=== PATIENT | male | born 1940 | race Caucasian/White ===

== ENCOUNTER → 2017-12-24 | Outpatient (CLI) | payer MEDICARE ==
[~2017-12-24] MED LIST: LEVO250T PO; LOSA100T16 PO; LOSA100T7 PO; NFPRILOC40 PO; SIMV40TA4 PO
--- NOTE | 2017-12-24 13:45 | Diagnostic Imaging Report ---
INDICATION: Dyspnea on exertion. PA and lateral chest. FINDINGS: There appear to be some emphysematous changes in the lungs. There are no infiltrates, effusions, or pneumothoraces. Heart size and pulmonary vascularity are normal. IMPRESSION: COPD. No acute abnormality seen. Dictated by: Dictated on workstation # [id number]
== END ==
LOC: RAD 10:32
PROVIDERS: ATTEND Internal Medicine
DX: J44.9 Chronic obstructive pulmonary disease, unspecified (principal)
CPT/HCPCS: 71046

== ENCOUNTER → 2018-05-05 | Outpatient (CLI) | payer MEDICARE | LOC: CARD 11:08 | PROVIDERS: ATTEND Internal Medicine | DX: R07.9 Chest pain, unspecified (principal) | CPT/HCPCS: 36415; 84484; 93005 ==

== ENCOUNTER 2018-08-02 10:24 | Outpatient (RCR) | payer MEDICARE ==
[~2018-08-02] VITALS: Ht 188 cm; Wt 84.8 kg
[2018-08-02 10:44] VITALS: BP 148/60
--- NOTE | 2018-08-02 12:31 | Pulmonary Rehab Eval/Txmt Plan ---
Pulmonary Rehab Initial Eval Information Paper Evaluation Completed: No Date: Aug 02, 2018 Therapist: AVERY BATRES Pulmonary Rehab Treatment Plan Treatment P Treatment Periord: Initial Diagnosis Diagnosis: COPD Date: Aug 02, 2018 Barriers to Learning Barriers: None Assessment/Problems Exercise: Deconditioning, Decreased Exer Tolerance, No Regular Exercise, Sedentary Type: AEROBIC Frequency: 2 X WEEK Duration: 1 HR CLASS, EXERCISE PER PT TOLERANCE Barriers to Exercise: NON Initial MET Level: 2 Aerobic Exercise/Goals Freq: time per week minus NE: 2 MET Level=: 2 Type: Arm Ergometry, Bike, Scifi/Nustep, Treadmill SABINO CASTANEDA DO Aug 02, 2018 12:31
[2018-09-16 08:52] VITALS: BP 127/70
[2018-09-16 09:50] VITALS: BP 120/74
[2018-09-30 08:50] VITALS: BP 118/60
[2018-09-30 09:55] VITALS: BP 128/60
[2018-10-14 08:53] VITALS: BP 120/61
[2018-10-14 09:50] VITALS: BP 125/60
[2018-10-19 08:47] VITALS: BP 120/60
[2018-10-19 09:55] VITALS: BP 128/60
[2018-10-21 08:45] VITALS: BP 130/50
[2018-10-21 09:45] VITALS: BP 120/70
[2018-11-02 08:55] VITALS: BP 140/80
[2018-11-02 09:55] VITALS: BP 130/86
== END 2018-10-31 | disposition home or self-care (01) ==
LOC: PULM 10:24
PROVIDERS: ATTEND Internal Medicine
DX: J44.9 Chronic obstructive pulmonary disease, unspecified (principal); R53.81 Other malaise

== ENCOUNTER → 2018-08-05 | Outpatient (CLI) | payer MEDICARE | LOC: PULM 11:02 | PROVIDERS: ATTEND Internal Medicine | DX: J44.9 Chronic obstructive pulmonary disease, unspecified (principal) | CPT/HCPCS: 94621 ==

== ENCOUNTER → 2018-09-28 | Outpatient (CLI) | payer MEDICARE | LOC: LAB 13:19 | PROVIDERS: ATTEND Internal Medicine | DX: J42 Unspecified chronic bronchitis (principal) | CPT/HCPCS: 87070; 87205 ==

== ENCOUNTER 2018-11-01 08:00 | Outpatient (RCR) | payer MEDICARE ==
[2018-11-09 08:55] VITALS: BP 150/80
[2018-11-09 09:50] VITALS: BP 102/70
[2018-11-11 08:50] VITALS: BP 140/50
[2018-11-11 09:55] VITALS: BP 140/60
[2018-11-16 09:00] VITALS: BP 130/60
[2018-11-16 10:00] VITALS: BP 122/70
== END 2019-01-30 | disposition home or self-care (01) ==
LOC: PULM 08:00
PROVIDERS: ATTEND Internal Medicine
DX: J44.9 Chronic obstructive pulmonary disease, unspecified (principal); R53.81 Other malaise

== ENCOUNTER 2021-01-31 16:55 | Inpatient (IN) | payer MEDICARE ==
[~2021-01-31] VITALS: Ht 187.9 cm; Wt 82.7 kg
[2021-01-31] MEDS ORDERED: fentaNYL INJ 100 MCG/2 ML AMP IVP ONE ×3 (17:00→19:30)
--- NOTE | 2021-01-31 17:03 | ED Lower Extremity ---
General Stated Complaint: HIP PAIN Source: patient Exam Limitations: no limitations (ANNALISE WALTERS APRN) History of Present Illness Date Seen by Provider: Jan 31, 2021 Time Seen by Provider: 17:01 Initial Comments To ER with reports of left hip pain. This began after he fell while walking down 2 of his steps to get out of his door. He landed on the left hip and laid outside for about an hour before help was summoned. He is unable to bear weight on the left hip. He is unable to straighten out the left hip and prefers to keep it in a flexed position. Did not hit his head and there were no other injuries. Onset: this afternoon Severity: moderate Pain/Injury Location: left hip Method of Injury: fell Modifying Factors: Worse With Movement (ANNALISE WALTERS APRN) Allergies and Home Medications Allergies Coded Allergies: No Known Drug Allergies (Unverified , 01/23/12) Home Medications Levofloxacin 250 Mg Tab, 250 MG PO DAILY, (Reported) take one tablet daily for 5 days Losartan Potassium 100 Mg Tablet, 100 MG PO DAILY, (Reported) RESUME FOR BP GREATER THAN 140/90 Omeprazole 40 Mg Capsule.dr, 40 MG PO DAILY, (Reported) Simvastatin 40 Mg Tablet, 40 MG PO DAILY, (Reported) Patient Home Medication List Home Medication List Reviewed: Yes (ANNALISE WALTERS APRN) Review of Systems Constitutional: see HPI EENTM: see HPI Respiratory: no symptoms reported Cardiovascular: no symptoms reported Genitourinary: no symptoms reported Musculoskeletal: see HPI, joint pain Skin: no symptoms reported Psychiatric/Neurological: No Symptoms Reported (ANNALISE WALTERS APRN) Past Niomqbf-Zsxbhl-Icxfkg Hx Patient Social History Former Smoker, Quit: Jan 31, 1999 (ANNALISE AWLTERS APRN) Past Medical History Reproductive Disorders: No (ANNALISE WALTERS APRN) Physical Exam Vital Signs Vital Signs - First Documented (WON GRIDER MD) Vital Signs Capillary Refill : (ANNALISE WALTERS APRN) Height, Weight, BMI Height: 6'2.00" Weight: 186lbs. oz. 81.143550wf; 23.1 BMI Method: General Appearance: WD/WN, no apparent distress Neck: non-tender, full range of motion Respiratory: no respiratory distress, no accessory muscle use Hips: left hip pain, left hip soft tissue tenderness Legs: bilateral leg non-tender, bilateral leg normal inspection, bilateral leg normal range of motion Knees: bilateral knee non-tender, bilateral knee normal inspection, bilateral knee normal range of motion Ankles: bilateral ankle non-tender, bilateral ankle normal inspection, bilateral ankle normal range of motion Feet: bilateral foot non-tender, bilateral foot normal inspection, bilateral foot normal range of motion Neurologic/Psychiatric: alert, normal mood/affect, oriented x 3 Skin: normal color, warm/dry (ANNALISE WALTERS APRN) Progress/Results/Core Measures Results/Orders Lab Results Laboratory Tests Test 01/31/21 17:22 Range/Units White Blood Count 15.8 H 4.3-11.0 10^3/uL Red Blood Count 4.01 L 4.30-5.52 10^6/uL Hemoglobin 13.1 L 13.3-17.7 g/dL Hematocrit 40 40-54 % Mean Corpuscular Volume 99 80-99 fL Mean Corpuscular Hemoglobin 33 25-34 pg Mean Corpuscular Hemoglobin Concent 33 32-36 g/dL Red Cell Distribution Width 12.2 10.0-14.5 % Platelet Count 218 130-400 10^3/uL Mean Platelet Volume 9.9 9.0-12.2 fL Immature Granulocyte % (Auto) 1 % Neutrophils (%) (Auto) 84 H 42-75 % Lymphocytes (%) (Auto) 7 L 12-44 % Monocytes (%) (Auto) 7 0-12 % Eosinophils (%) (Auto) 1 0-10 % Basophils (%) (Auto) 1 0-10 % Neutrophils # (Auto) 13.3 H 1.8-7.8 10^3/uL Lymphocytes # (Auto) 1.1 1.0-4.0 10^3/uL Monocytes # (Auto) 1.1 H 0.0-1.0 10^3/uL Eosinophils # (Auto) 0.1 0.0-0.3 10^3/uL Basophils # (Auto) 0.1 0.0-0.1 10^3/uL Immature Granulocyte # (Auto) 0.1 0.0-0.1 10^3/uL Neutrophils % (Manual) 76 % Lymphocytes % (Manual) 9 % Monocytes % (Manual) 10 % Eosinophils % (Manual) 3 % Basophils % (Manual) 0 % Band Neutrophils 2 % Blood Morphology Comment NORMAL Prothrombin Time 14.3 12.2-14.7 SEC INR Comment 1.1 0.8-1.4 (WON GRIDER MD) Vital Signs/I&O 01/31/21 01/31/21 16:58 16:58 Temp 36.8 36.8 Pulse 93 93 Resp 18 18 B/P (MAP) 136/100 (112) 136/100 (112) Pulse Ox 92 92 O2 Delivery Nasal Cannula Nasal Cannula (WON GRIDER MD) Diagnostic Imaging Diagonstic Imaging: Xray Plain Films/CT/US/NM/MRI: chest Comments NAME: PAULINE OVALLE [facility] REC#: [id number] PT STATUS: REG ER : 1940 PHYSICIAN: ANNALISE WALTERS APRN ADMIT DATE: 01/31/21/ER Signed Date of Exam:01/31/21 CHEST 1 VIEW, AP/PA ONLY INDICATION: Fell. COMPARISON STUDY: Chest from 12/24/2017. FINDINGS: Frontal view of the chest demonstrates stable COPD. The heart size and vascularity are normal. No pleural effusion, pneumothorax, or fractures identified. There is some calcification of the aorta. IMPRESSION: There is stable COPD with no acute findings. Dictated by: Dictated on workstation # [id number] Dict: 01/31/211725 Trans: 01/31/21 173 AS6 [id number] Interpreted by: PERFECTO MENDIETA MD Electronically signed by: PERFECTO MENDIETA MD 01/31/21 173 NAME: PAULINE OVALLE [facility] REC#: [id number] PT STATUS: REG ER : 1940 PHYSICIAN: ANNALISE WALTERS APRN ADMIT DATE: 01/31/21/ER Draft Date of Exam:01/31/21 PELVIS WITH LEFT HIP 2-3 VIEWS EXAMINATION: Left hip unilateral 2 or 3 views (w/pelvis when done) HISTORY: Fall, left hip pain. COMPARISON: None available. FINDINGS: There is a displaced intertrochanteric fracture of the left femur with a comminuted fragment involving the lesser trochanter. Hip joint space is normal. No other fracture is seen. IMPRESSION: 1. Displaced and comminuted intertrochanteric fracture of the left femur. Dictated on workstation # [id number] Dict: 01/31/21 1726 Trans: 01/31/21 1731 AS6 [id number] Interpreted by: MAME SOLIS MD Electronically signed by: (ANNALISE WALTERS APRN) Departure Communication (Admissions) I spoke with Dr. Morrison, he will see the patient later this evening, will admit to him and consult hospitalist. Plan for n.p.o. after midnight operative repair in the morning. Patient's only medication at home is an inhaler for COPD. 1824-attempted to place a Gunderson catheter, unsuccessful x2 attempts by me. He states that he has had issues with urinary retention before where he was unable to urinate for a few days and walked around the house and was ultimately able to go. He felt that he should have gone somewhere to be evaluated but chose not to. 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 Today during my attempts I am able to insert the catheter 16 [place] coud easily until it reaches the prostate at which point I am no longer able to advance the catheter. Further attempts were ceased. He was able to use a urinal to completely empty his bladder. Post void bladder scan revealed an empty bladder. We will continue with this method. I called Dr. Moya but he is leaving town tomorrow and is unable to help out. (ANNALISE WALTERS APRN) Impression Primary Impression: Hip fracture, right Disposition: ADMITTED INPATIENT Condition: Stable Admissions Decision to Admit Reason: Admit from ER (Trauma) Decision to Admit/Date: Jan 31, 2021 Time/Decision to Admit Time: 17:43 (ANNALISE WALTERS APRN) Departure-Patient Inst. Referrals: ERIK JOHN MD (PCP/Family) Primary Care Physician Attending physician note: I was physically present in the emergency department as attending physician during the care of this patient, but I was not directly involved in the care or decision-making of this patient. (WON GRIDER MD) ANNALISE WALTERS APRN Jan 31, 2021 17:03 WON GRIDER MD Feb 01, 2021 20:31
[2021-01-31] MEDS ORDERED: NS IV 500 ML 500 ML IV SCH (17:15)
--- NOTE | 2021-01-31 17:29 | Diagnostic Imaging Report ---
INDICATION: Fell. COMPARISON STUDY: Chest from 12/24/2017. FINDINGS: Frontal view of the chest demonstrates stable COPD. The heart size and vascularity are normal. No pleural effusion, pneumothorax, or fractures identified. There is some calcification of the aorta. IMPRESSION: There is stable COPD with no acute findings. Dictated by: Dictated on workstation # [id number]
--- NOTE | 2021-01-31 17:32 | Diagnostic Imaging Report ---
EXAMINATION: Left hip unilateral 2 or 3 views (w/pelvis when done) HISTORY: Fall, left hip pain. COMPARISON: None available. FINDINGS: There is a displaced intertrochanteric fracture of the left femur with a comminuted fragment involving the lesser trochanter. Hip joint space is normal. No other fracture is seen. IMPRESSION: 1. Displaced and comminuted intertrochanteric fracture of the left femur. Dictated by: Dictated on workstation # [id number]
[2021-01-31 17:34] LABS: BASOPHILS # (AUTO) 0.1 10^3/uL (0.0-0.1); BASOPHILS % (AUTO) 1 % (0-10); EOSINOPHILS # (AUTO) 0.1 10^3/uL (0.0-0.3); EOSINOPHILS % (AUTO) 1 % (0-10); HEMATOCRIT 40 % (40-54); HEMOGLOBIN 13.1 g/dL (13.3-17.7); LYMPHOCYTES # (AUTO) 1.1 10^3/uL (1.0-4.0); LYMPHOCYTES % (AUTO) 7 % (12-44); MEAN CORPUSCULAR HEMOGLOBIN 33 pg (25-34); MEAN CORPUSCULAR HGB CONC 33 g/dL (32-36); MEAN CORPUSCULAR VOLUME 99 fL (80-99); MEAN PLATELET VOLUME 9.9 fL (9.0-12.2); MONOCYTES # (AUTO) 1.1 10^3/uL (0.0-1.0); MONOCYTES % (AUTO) 7 % (0-12); NEUTROPHILS # (AUTO) 13.3 10^3/uL (1.8-7.8); NEUTROPHILS % (AUTO) 84 % (42-75); PLATELET COUNT 218 10^3/uL (130-400); WHITE BLOOD COUNT 15.8 10^3/uL (4.3-11.0)
[2021-01-31 17:44] LABS: INR 1.1 (0.8-1.4); PROTHROMBIN TIME PATIENT 14.3 SEC (12.2-14.7)
[2021-01-31 17:52] LABS: BAND NEUTROPHILS 2 %; BASOPHILS % (MANUAL) 0 %; EOSINOPHILS % (MANUAL) 3 %; LYMPHOCYTES % (MANUAL) 9 %; MONOCYTES % (MANUAL) 10 %; NEUTROPHILS % (MANUAL) 76 %
[2021-01-31 17:53] LABS: RBC MORPH NORMAL
[2021-01-31] MEDS ORDERED: LIDOCAINE UROJET 2% GEL 10 ML PKG ONE (17:54)
[2021-01-31 18:29] LABS: CLARITY,URINE TURBID; COLOR,URINE RED; GLUCOSE, URINE (UA) NEGATIVE (NEGATIVE); KETONES,URINE TRACE (NEGATIVE); LEUKOCYTE ESTERASE ,URINE TRACE (NEGATIVE); NITRITE,URINE POSITIVE (NEGATIVE); PH,URINE 6.5 (5-9); PROTEIN,URINE 2+ (NEGATIVE)
[2021-01-31 18:32] LABS: BILIRUBIN,URINE 1+ (NEGATIVE)
[2021-01-31 18:37] LABS: BACTERIA,URINE TRACE /HPF; RBC,URINE TNTC /HPF; SQUAMOUS EPITHELIAL CELL,UR RARE /HPF; WBC,URINE 0-2 /HPF
[2021-01-31 19:00] LABS: ALBUMIN 3.8 GM/DL (3.2-4.5); POTASSIUM 3.8 MMOL/L (3.6-5.0)
[2021-01-31 19:01] LABS: CALCIUM 8.6 MG/DL (8.5-10.1)
[2021-01-31 19:02] LABS: TOTAL PROTEIN 6.4 GM/DL (6.4-8.2)
[2021-01-31 19:04] LABS: BILIRUBIN,TOTAL 0.6 MG/DL (0.1-1.0)
[2021-01-31 19:06] LABS: CREATININE SERUM 1.33 MG/DL (0.60-1.30)
[2021-01-31] MEDS ORDERED: ONDANSETRON 4 MG/2 ML (SDV) Z0FRAN IV PRN (20:00)
[2021-01-31] MEDS ORDERED: CATHETER FLUSH 10 ML SYR IV PRN (20:00)
[2021-01-31] MEDS: LACTATED RINGERS 1,000 ML IV SCH (21:26)
[2021-01-31] MEDS: fentaNYL INJ 100 MCG/2 ML AMP IV PRN (21:27)
[2021-01-31 22:28] VITALS: BP 136/100
[2021-01-31] MEDS ORDERED: RT-ALBUTEROL/IPRATROPIUM 3 ML (DUONEB) VIAL ONE (22:56)
[2021-01-31] MEDS ORDERED: RT-ALBUTEROL/IPRATROPIUM 3 ML (DUONEB) VIAL INH PRN (23:00)
[2021-02-01] VITALS (13 sets, daily range): BP systolic 93–144; BP diastolic 57–93
[2021-02-01] MEDS: fentaNYL INJ 100 MCG/2 ML AMP IV PRN ×10 (01:45→23:46)
[2021-02-01] MEDS: LACTATED RINGERS 1,000 ML IV SCH ×3 (03:46→20:24)
--- NOTE | 2021-02-01 04:43 | HISTORY AND PHYSICAL ---
DATE OF SERVICE: ADMISSION HISTORY AND PHYSICAL REASON FOR ADMISSION: Left intertrochanteric femur fracture. HISTORY: The patient is an 80-year-old gentleman who fell at home while walking down two steps. He landed on his left hip. He presented to the Emergency Department, where he was found to have a left intertrochanteric femur fracture. He denies any antecedent symptoms. He denies loss of consciousness or dizziness. He reports no prior history of hip problems. REVIEW OF SYSTEMS: No chest pain, no shortness of breath, no dysuria. PAST MEDICAL HISTORY: Significant for COPD, hypothyroidism, reflux, hypercholesterolemia. MEDICATIONS: Simvastatin, omeprazole. SOCIAL HISTORY: The patient is a former smoker. FAMILY HISTORY: Noncontributory. ALLERGIES: No known drug allergies. PHYSICAL EXAMINATION: GENERAL: The patient is well-developed, well-nourished, in no acute distress. HEENT: Normocephalic, atraumatic. Pupils are equal, round and reactive to light. Oropharynx is clear. NECK: Supple, no lymphadenopathy. LUNGS: Clear to auscultation bilaterally. HEART: Regular rate and rhythm. ABDOMEN: Soft, nontender, nondistended. EXTREMITIES: Left hip is held in a flexed position. There are no skin lesions noted. He has intact dorsiflexion and plantarflexion of the toes with symmetric pulses. He is tender over the lateral aspect of his left hip. Radiographs reveal a displaced left intertrochanteric femur fracture. IMPRESSION: Displaced left intertrochanteric femur fracture. PLAN: Left hip intramedullary nail. The risks, benefits, options, ramifications and recovery were discussed at length with the patient. He understands and wishes to proceed. Job ID: [id number] DocumentID: [id number] Dictated Date: 01/31/2021 19:16:59 Golf Shoe Spike Assembler Date: 02/01/2021 04:43:24 Dictated By: HUMERA BERNAL MD
[2021-02-01 06:00] LABS: BASOPHILS % (AUTO) 0 % (0-10); EOSINOPHILS % (AUTO) 0 % (0-10); HEMATOCRIT 33 % (40-54); HEMOGLOBIN 10.7 g/dL (13.3-17.7); LYMPHOCYTES # (AUTO) 1.3 10^3/uL (1.0-4.0); LYMPHOCYTES % (AUTO) 14 % (12-44); MEAN CORPUSCULAR HEMOGLOBIN 32 pg (25-34); MEAN CORPUSCULAR HGB CONC 33 g/dL (32-36); MEAN CORPUSCULAR VOLUME 99 fL (80-99); MEAN PLATELET VOLUME 10.1 fL (9.0-12.2); MONOCYTES # (AUTO) 1.3 10^3/uL (0.0-1.0); MONOCYTES % (AUTO) 14 % (0-12); NEUTROPHILS # (AUTO) 6.3 10^3/uL (1.8-7.8); NEUTROPHILS % (AUTO) 71 % (42-75); PLATELET COUNT 181 10^3/uL (130-400); WHITE BLOOD COUNT 8.9 10^3/uL (4.3-11.0)
[2021-02-01 06:18] LABS: POTASSIUM 4.2 MMOL/L (3.6-5.0)
[2021-02-01 06:20] LABS: CALCIUM 8.8 MG/DL (8.5-10.1)
[2021-02-01 06:24] LABS: CREATININE SERUM 1.52 MG/DL (0.60-1.30)
[2021-02-01] MEDS: RT-ALBUTEROL/IPRATROPIUM 3 ML (DUONEB) VIAL INH SCH ×2 (06:28→18:47)
--- NOTE | 2021-02-01 10:59 | Consultation - Hospitalist ---
HPI History of Present Illness: HPI/Chief Complaint Pt is an 80yoCM with no reported medical history who presented to the ER due to a fall. He was trying to get out of his door and fell down two steps landing on his left side. He was unfortunately down for about an hour prior to getting assistance as he was unable to stand. He was found to have a hip fracture and was admitted for repair. I am consulted for medical management. He reports he takes no prescription medicines but will take mucinex for phlegm. Otherwise he mostly just takes vitamins. He states he is very careful with his diet as well to maintain his weight and watches his carbs closely. Source: patient Date Seen 02/01/21 Attending Physician Chris Morrison MD PCP Mckinley Nichols MD Referring Physician Date of Admission Jan 31, 2021 at 17:31 Home Medications & Allergies Home Medications Reviewed patient Home Medication Reconciliation performed by pharmacy medication reconciliations epitaxial reactor technician and/or nursing. Patients Allergies have been reviewed. Allergies Allergies Coded Allergies No Known Drug Allergies (Unverified01/23/12) Past Yanoldf-Mxirya-Ksstrb Hx Patient Social History Tobacco Use?: No Smoking Status: Former Smoker Smokeless Tobacco Frequency: Never a User Use of E-Cig and/or Vaping dev: No Substance use?: No Alcohol Use?: No Pt feels they are or have been: No Immunizations Up To Date First/Initial COVID19 Vaccinat: 10/17/2020 Second COVID19 Vaccination Rufino: 11/17/2020 Tetanus Booster (TDap): Unknown Hepatitis A: No Hepatitis B: No Current Status Advance Directives: No Communicates: Verbally Primary Language: Hungarian Preferred Spoken Language: Hungarian Is interpretation needed?: No Implanted or Applied Medical D: None Past Medical History COPD Blood Disorders: No Review of Systems Constitutional: No chills, No fever EENTM: No blurred vision, No double vision, No nose congestion, No throat pain Respiratory: No cough, No dyspnea on exertion, No short of breath Cardiovascular: No chest pain, No edema, No palpitations Gastrointestinal: No abdominal pain, No constipation, No diarrhea, No nausea, No vomiting Genitourinary: No dysuria, No frequency Musculoskeletal: see HPI Skin: No lesions, No rash Psychiatric/Neurological: Denies Headache, Denies Numbness, Denies Tingling Physical Exam Physical Exam Vital Signs Vital Signs - First Documented Capillary Refill : Less Than 3 Seconds Height, Weight, BMI Height: 6'2.00" Weight: 186lbs. oz. 81.577462cm; 23.42 BMI Method: General Appearance: No Apparent Distress, WD/WN, Thin HEENT: PERRL/EOMI, Moist Mucous Membranes, Scleral Icterus (L), Scleral Icterus (R) Neck: Normal Inspection, Supple Cardiovascular: Regular Rate, Rhythm, No Murmur Gastrointestinal: Normal Bowel Sounds, Non Tender, Soft Extremity: Normal Capillary Refill, No Calf Tenderness, No Pedal Edema Neurologic/Psychiatric: Alert, Oriented x3, Normal Mood/Affect Skin: Normal Color, Warm/Dry Results Results/Procedures Labs Laboratory Tests 01/31/21 17:22 01/31/21 18:32 02/01/21 05:30 Patient resulted labs reviewed. Imaging: Reviewed Imaging Report Imaging [facility] [place], [place] NAME: PAULINE OVALLE [facility] REC#: [id number] PT STATUS: ADM IN : 1940 PHYSICIAN: ANNALISE WALTERS APRN ADMIT DATE: 01/31/21 Signed Date of Exam:01/31/21 PELVIS WITH LEFT HIP 2-3 VIEWS EXAMINATION: Left hip unilateral 2 or 3 views (w/pelvis when done) HISTORY: Fall, left hip pain. COMPARISON: None available. FINDINGS: There is a displaced intertrochanteric fracture of the left femur with a comminuted fragment involving the lesser trochanter. Hip joint space is normal. No other fracture is seen. IMPRESSION: 1. Displaced and comminuted intertrochanteric fracture of the left femur. Dictated by: Dictated on workstation # [id number] Dict: 01/31/21 1726 Trans: 01/31/21 1908 AS6 [id number] Interpreted by: MAME SOLIS MD Electronically signed by: MAME SOLIS MD 01/31/218 Assessment/Plan Assessment and Plan Assess & Plan/Chief Complaint jjjjjiDisplaced/comminuted intertrochanteric left femur fracture Management per primary Plan for operative repair today Discussed with Dr Morrison PT/OT following surgery IRF consult h/o HTN Appears to have taken antihypertensives in the past but not longer on them Will watch BP and treat as needed DVT ppx: When ok with surgery Diagnosis/Problems Diagnosis/Problems (1) Intertrochanteric fracture of left femur RICARDO CLIFFORD MD Feb 01, 2021 10:59
[2021-02-01] MEDS ORDERED: BUPIVACAINE 0.25% 30 ML (SENSORCAINE) VIAL ONE ×2 (13:11→13:34)
[2021-02-01] MEDS ORDERED: fentaNYL INJ 100 MCG/2 ML AMP IVP PRN (13:30)
[2021-02-01] MEDS: LACTATED RINGERS 1,000 ML IV PRN ×2 (13:30→14:27)
[2021-02-01] MEDS ORDERED: ACETAMINOPHEN 325 MG TABLET PO PRN (13:30)
[2021-02-01] MEDS ORDERED: ONDANSETRON 4 MG/2 ML (SDV) Z0FRAN IVP PRN (13:30)
[2021-02-01] MEDS ORDERED: LACTATED RINGERS 1,000 ML IV PRN (13:30)
[2021-02-01] MEDS ORDERED: ceFAZolin INJECTION 2,000 MG ONE (13:32)
[2021-02-01] MEDS ORDERED: WATER (STERILE) FOR INJECTION 20 ML ONE (13:33)
[2021-02-01] MEDS ORDERED: ONDANSETRON 4 MG/2 ML (SDV) Z0FRAN ONE (13:34)
[2021-02-01] MEDS ORDERED: MIDAZOLAM 2 MG/2 ML (VERSED) VIAL ONE (13:34)
[2021-02-01] MEDS ORDERED: PROPOFOL INJECTION 50 ML IV ONE (13:34)
--- NOTE | 2021-02-01 13:36 | Progress Note-Pre Operative ---
Pre-Operative Progress Note H&P Reviewed The H&P was reviewed, patient examined and no changes noted. Date Seen by Provider: Feb 01, 2021 Time Seen by Provider: 13:20 Date H&P Reviewed: Feb 01, 2021 Time H&P Reviewed: 07:00 Pre-Operative Diagnosis: closed, displaced, left intertrochanteric femur fracture HUMERA BERNAL MD Feb 01, 2021 13:36
--- NOTE | 2021-02-01 13:37 | Progress Note-Post Operative ---
Post-Operative Progess Note Surgeon (s)/Probation And Patrol Agent (s) Surgeon HUMERA BERNAL MD Probation And Patrol Agent: Alex Lemon Pre-Operative Diagnosis closed, displaced, left intertrochanteric femur fracture Post-Operative Diagnosis closed, displaced, left intertrochanteric femur fracture Procedure & Operative Findings Date of Procedure 02/01/21 Procedure Performed/Findings left hip intramedullary aarti Anesthesia Type spinal Estimated Blood Loss Estimated blood loss (mL): 100 ml Specimens/Packing Specimens Removed none Packing: none HUMREA BERNAL MD Feb 01, 2021 13:37
[2021-02-01] MEDS ORDERED: fentaNYL INJ 100 MCG/2 ML AMP ONE (13:43)
--- NOTE | 2021-02-01 13:56 | Physical Therapy Progress Note ---
Therapy Progress Note Patient currently in surgery. PT will evaluate patient in SHABBIR Baig PT Feb 01, 2021 13:56
[2021-02-01] MEDS ORDERED: RT-ALBUTEROL SULF 2.5 MG/3 ML PRE-MIX VIAL ONE (15:36)
--- NOTE | 2021-02-01 17:38 | Diagnostic Imaging Report ---
IMPRESSION: Intraoperative fluoroscopy was utilized by Tamiko during open reduction internal fixation of an intertrochanteric left femoral fracture. This was repaired with an antegrade intramedullary nail and spiral blade plate. 190.5 seconds of fluoroscopy was utilized. Dictated by: Dictated on workstation # [id number]
[2021-02-01] MEDS ORDERED: guaiFENesin (MUCINEX) 600 MG TAB PO PRN (18:15)
[2021-02-01] MEDS: oxyCODONE/APAP 5/325MG (PERCOCET 5) TABLET PO PRN ×2 (18:31→20:40)
[2021-02-01] MEDS: ceFAZolin INJECTION 1,000 MG in WATER (STERILE) FOR INJECTION 10 ML IV SCH ×2 (20:40→22:00)
--- NOTE | 2021-02-01 22:07 | OPERATIVE REPORT ---
DATE OF SERVICE: 02/01/2021 DIAGNOSIS: Displaced closed left intertrochanteric femur fracture. PROCEDURE: Left hip intramedullary nail. SURGEON: Chris Morrison MD ROAD FREIGHT FIRER: Alex Lemon, who assisted throughout the procedure and closed the incision. ANESTHESIA: Spinal by Twan Snow CRNA. ESTIMATED BLOOD LOSS: 100 mL. DRAINS: None. COMPLICATIONS: None. MATERIALS: Synthes TFN hip nail, 12 mm statically locked with a 105 mm blade. POSTOPERATIVE PLAN: Toe touch weightbearing, left lower extremity. The patient was transferred to the recovery room awake and in stable condition. STATEMENT OF MEDICAL NECESSITY: The patient is an 80-year-old gentleman who fell at home yesterday and was found to have a displaced left intertrochanteric femur fracture and the patient was counseled regarding treatment options and elected to proceed with surgical intervention. DESCRIPTION OF PROCEDURE: After risks and benefits of procedure were discussed and questions were answered, informed consent was signed and placed on chart, the operative site was confirmed in the preoperative holding area initialed by the surgeon. The patient was then transferred to the operating room. After adequate levels of regional anesthetic were obtained, a timeout was called, confirming the operative site. The patient was then carefully placed on the fracture table and longitudinal traction was applied. The fracture was flexed proximally and abducted somewhat and lower extremity was prepped and draped in the usual sterile fashion. An incision was made from the greater trochanter extending proximally. The iliotibial band was incised in line with the incision. The guidewire was passed through the greater trochanter into the femoral canal. This was shown to be well-placed in the AP and lateral planes. This was then overreamed and 12 mm nail was placed with excellent fill distally. The proximal fragment was flexed anteriorly and the posterior fragment was extended. A Rabago was inserted to lever the femoral neck posteriorly and the aarti was used to lever the femur anteriorly. This provided better reduction and the guidewire was passed into the femoral head. Unfortunately, it was somewhat superior and was an anterior, but this was felt to be adequate. This was then overdrilled to the nail and a 105 mm blade was placed with excellent purchase. This was then statically locked proximally and through the same incision distally of the blade, the locking screw was placed and had excellent purchase and was well placed in the AP and lateral planes. The femur moved as a unit after hardware placement as this was viewed under live time fluoroscopy and palpated anteriorly. The wounds were copiously irrigated. The iliotibial band was closed with #1 Vicryl in [id number] interrupted fashion. The subcutaneous tissues were closed with 2-0 Vicryl in a simple interrupted fashion and shasta were used on the skin. Incisions were infiltrated with plain Marcaine. A soft dressing was applied, and the patient was transported to the recovery room awake and in stable condition. Job ID: [id number] DocumentID: [id number] Dictated Date: 02/01/2021 16:06:54 Picker Feeder Date: 02/01/2021 22:04:57 Dictated By: CHRIS MORRISON MD
[2021-02-02] MEDS: fentaNYL INJ 100 MCG/2 ML AMP IV PRN ×2 (04:15→06:22)
[2021-02-02] MEDS: LACTATED RINGERS 1,000 ML IV SCH ×3 (04:16→23:10)
[2021-02-02 04:18] VITALS: BP 111/70
[2021-02-02 06:07] LABS: HEMOGLOBIN 8.5 g/dL (13.3-17.7)
[2021-02-02] MEDS: ceFAZolin INJECTION 1,000 MG in WATER (STERILE) FOR INJECTION 10 ML IV SCH (06:21)
[2021-02-02] MEDS: RT-ALBUTEROL/IPRATROPIUM 3 ML (DUONEB) VIAL INH SCH ×2 (07:00→18:30)
--- NOTE | 2021-02-02 07:30 | Progress Note ---
Standard Progress Note Progress Notes/Assess & Plan Date Seen by a Provider: Feb 02, 2021 Time Seen by a Provider: 07:29 Progress/Assessment & Plan no complaints Vital Signs Date Time Temp Pulse Resp B/P (MAP) Pulse Ox O2 Delivery O2 Flow Rate FiO2 02/02/21 07:00 94 Nasal Cannula 2.00 02/02/21 04:18 36.8 93 20 111/70 (84) 95 Nasal Cannula 2.00 02/01/21 23:46 36.5 96 20 106/65 (79) 97 Nasal Cannula 2.00 02/01/21 19:30 Nasal Cannula 2.00 02/01/21 19:25 36.8 102 22 110/57 (74) 95 Nasal Cannula 2.00 02/01/21 18:49 92 Nasal Cannula 2.00 02/01/21 16:30 36.6 99 24 144/83 (103) 95 Nasal Cannula 2.00 02/01/21 16:25 Nasal Cannula 2 02/01/21 16:20 37.2 18 106/93 (97) 94 Nasal Cannula 2 02/01/21 16:15 OxyMask 2 02/01/21 16:10 20 127/61 (83) 94 OxyMask 2 02/01/21 16:00 17 129/71 (90) 95 OxyMask 4 02/01/21 16:00 OxyMask 3 02/01/21 15:50 14 120/75 (90) 96 OxyMask 6 02/01/21 15:45 OxyMask 6 02/01/21 15:40 16 141/69 (93) 98 OxyMask 8 02/01/21 15:33 36.2 20 93/74 (80) 98 OxyMask 10 02/01/21 15:33 OxyMask 10 02/01/21 11:50 36.8 88 20 123/68 (86) 92 Room Air 02/01/21 08:00 92 Room Air 02/01/21 07:45 36.4 99 20 103/61 (75) 92 Room Air I & O 02/02/21 07:00 Intake Total 2190 ml Output Total 1400 ml Balance 790 ml Laboratory Tests Test 02/02/21 05:35 Range/Units Hemoglobin 8.5 #L 13.3-17.7 g/dL Hematocrit 26 L 40-54 % L hip echymotic. Dressing intact. Intact DF and PF of toes and ankle s/p L hip IM aarti strict TTWB IRU HUMERA Zaragoza MD Feb 02, 2021 07:30
[2021-02-02 08:35] VITALS: BP 115/56
[2021-02-02] MEDS: ENOXAPARIN 40 MG/0.4 ML (LOVENOX) SYR SC SCH (08:55)
[2021-02-02] MEDS: ASPIRIN E.C. 81 MG (ECOTRIN) TAB PO SCH (08:55)
--- NOTE | 2021-02-02 09:49 | Anesthesia-Regional Post-Op ---
Regional Patient Condition Mental Status: Alert, Oriented x3 Circulation: Same as Pre-Op Headache: Absent Sensation: Full Recovery Motor Block: Absent Post Op Complications Complications None Follow Up Care/Instructions Patient Instructions None needed. Anesthesia/Patient Condition Patient is doing well, no complaints, stable vital signs, no apparent adverse anesthesia problems. No complications reported per nursing. [place] [facility] [place] ZARIA COKER CRNA Feb 02, 2021 09:49
[2021-02-02] MEDS: oxyCODONE/APAP 5/325MG (PERCOCET 5) TABLET PO PRN (11:48)
--- NOTE | 2021-02-02 12:09 | Physical Therapy Evaluation ---
PT Evaluation-General Medical Diagnosis Admission Date Jan 31, 2021 at 17:31 Medical Diagnosis: Left Femur fracture Onset Date: Feb 01, 2021 Therapy Diagnosis Therapy Diagnosis: Gait deficit, Generalized weakness Height/Weight Height (Feet): 6 Height (Inches): 2.00 Weight (Pounds): 186 Precautions Precautions/Isolations: Fall Prevention, Standard Precautions Weight Bear Status Right Lower Extremity: Right Full Weight Bearing Left Lower Extremity: Left Touch Toe Bearing Referral Physician: Dr. Morrison Reason for Referral: Evaluation/Treatment, Strengthening, Gait, ROM Social History Home: Single Level Current Living Status: Alone Entry Into Home: Stairs Without Railing PT Steps Into Home: 2 Prior Prior Level of Function SCALE: Activities may be completed with or without assistive devices. 7-Iopjjyexkh-vqumtht completes the activity by him/herself with no assistance from a helper. 5-Set-up or Clean-up Assistance-helper sets up or cleans up; patient completes activity. [place] assists only prior to or following the activity. 4-Supervision or Touching Assistance-helper provides verbal cues and/or touching/steadying and/or contact guard assistance as patient completes activity. Assistance may be provided throughout the activity or intermittently. 3-Partial/Moderate Assistance-helper does LESS THAN HALF the effort. [place] lifts, holds or supports trunk or limbs, but provides less than half the effort. 2-Substantial/Maximal Assistance-helper does MORE THAN HALF the effort. [place] lifts or holds trunk or limbs and provides more than half the effort. 6-Qrxxyzhjy-fnfqzr does ALL the effort. Patient does none of the effort to complete the activity. Or, the assistance of 2 or more helpers is required for the patient to complete the activity. If activity was not attempted, code reason: 7-Patient Refused. 9-Not Applicable-not attempted and the patient did not perform the activity before the current illness, exacerbation or injury. 10-Not Attempted due to Environmental Limitations-(lack of equipment, weather restraints, etc.). 88-Not Attempted due to Medical Conditions or Safety Concerns. Bed Mobility: 6 Transfers (B,C,W/C): 6 Gait: 6 Stairs: 6 Wheelchair Mobility: 9 Indoor Mobility (Ambulation): Independent Stairs: Independent Prior Device Use: none PT Evaluation-Current Subjective Patient reports left hip pain that increases with movement. Currently feels that his arms aren't strong enough to help him walk using the FWW. Pain Numeric Pain Scale: 8 Location: Left Location Body Site: Hip Pain Description: Ache, Throbbing, Sharp Pt/Family Goals Patient wants to get stronger and return home. Objective Patient Orientation: Person, Place, Time, Situation Attachments: IV Integumentary/Posture Integumentary Please see nurses notes Bowel Incontinence: No Bladder Incontinence: No Posture Patient demonstrates right lateral lean in sitting to offset pain in left him. He demonstrates a forward trunk posture in standing with head down and bilateral shoulders protracted. Neuromuscular (Tone, Coordination, Reflexes) Coordination decreased on left LE. Sensory Vision: Wears Glasses Hearing: Functional Sensation Right Lower Extremit: Intact Sensation Left Lower Extremity: Intact Transfers Roll Left to Right (QC): 2 Sit to Lying (QC): 2 Lying to Sitting/Side of Bed(Q: 2 Sit to Stand (QC): 2 Chair/Fvn-ps-Meuns Xfer(QC): 2 Toilet Transfer (QC): 2 Car Transfer (QC): 88 Gait Does the Patient Walk?: No and Walking Goal IS indicated Mode of Locomotion: Both Anticipated Mode of Locomotion: Walk Walk 10 feet (QC): 1 Walk 50 ft with 2 Turns(QC): 1 Walk 150 ft (QC): 1 Walking 10ft/uneven surface-QC: 1 Distance: 0 Gait Assistive Device: FWW Comments/Gait Description Patient is unable to generate enough UE force to initiate stepping at this time. Wheelchair Training Does the Pt Use a Wheelchair?: No Distance: 0 Wheel 50 ft with 2 turns (QC): 1 Wheel 150 ft (QC): 1 Type of Wheelchair: Manual Stairs #of Steps: 0 1 Step (curb) (QC): 1 4 Steps (QC): 1 12 Steps (QC): 1 Walking Assistive Device: Walker Balance Sitting Static: Fair Sitting Dynamic: Poor Standing Static: Poor Standing Dynamic: Poor Picking up an Object (QC): 1 Assessment/Needs Patient lying supine in bed upon PT arrival, agreeable to treatment. Patient performs all bed mobility and transfers with max A and additional assist for Left LE movement. Sits edge of bed ~ 5 minutes with focus on appropriate posture and righting. Patient requires max A for sit to stand and stand pivot to the chair. Attempted standing and transfer with FWW, however patient unable to use UEs with any efficiency. Patient in chair post treatment with all needs met, nursing notified, call light in reach. Rehab Potential: Fair Equipment Needs FWW, W/C PT Short Term Goals Short Term Goals Time Frame: Feb 13, 2021 Roll Left & Right: 3 Sit to lyin Lying to sitting on side of be: 3 Sit to stand: 3 Chair/zqj-xc-kizjj transfer: 3 Toilet transfer: 3 Car transfer: 3 Walk 10 feet: 2 Walk 50 feet with two turns: 2 Walk 150 feet: 2 Walking 10ft on uneven surface: 2 1 step (curb): 2 4 steps: 2 12 steps: 2 Picking up objects: 2 Does pt use a wc or scooter: Yes Wheel 50ft w/2 turns: 3 Wheel 150 feet: 3 Type: Manual PT Penitentiary Goals Real Estate Teacher Goals PT Penitentiary Goals Time Frame: Feb 23, 2021 Roll Left & Right (QC): 5 Sit to Lying (QC): 5 Lying-Sitting on Side/Bed(QC): 5 Sit to Stand (QC): 5 Chair/Aod-fh-Jqrmd Xfer(QC): 4 Toilet Transfer (QC): 4 Car Transfer (QC): 4 Does the Patient Walk: Yes Walk 10 feet (QC): 3 Walk 50ft with 2 Turns (QC): 3 Walk 150 ft (QC): 3 Walking 10ft on Uneven Surface: 3 1 Step (curb) (QC): 3 4 Steps (QC): 3 12 Steps (QC): 3 Picking up an Object (QC): 3 Does the Pt use WC or Scooter?: Yes Wheel 50 feet with 2 turns (QC: 5 Type: Manual Wheel 150 feet: 5 Type: Manual PT Plan Problem List Problem List: Activity Tolerance, Functional Strength, Safety, Balance, Gait, Transfer, Bed Mobility Treatment/Plan Treatment Plan: Continue Plan of Care Treatment Plan: Bed Mobility, Education, Functional Activity Molly, Functional Strength, Group Therapy, Gait, Safety, Therapeutic Exercise, Transfers Treatment Duration: Mar 02, 2021 Frequency: At least 5 of 7 days/Wk (IRF) Estimated Hrs Per Day: .25 hour per day Patient and/or Family Agrees t: Yes Safety Risks/Education Patient Education: Gait Training, Transfer Techniques, Reviewed Precautions, Correct Positioning, Safety Issues Teaching Recipient: Patient Teaching Methods: Demonstration, Discussion Response to Teaching: Verbalize Understanding Time/GCodes Time In: 940 Time Out: 1010 Total Billed Treatment Time: 30 Total Billed Treatment Visit, Eval, Functional Act. MAME GUTIERREZ PT Feb 02, 2021 12:09
[2021-02-02 12:10] VITALS: BP 107/56
[2021-02-02 15:53] VITALS: BP 102/65
[2021-02-02 19:13] VITALS: BP 91/54
[2021-02-02 23:10] VITALS: BP 94/58
[2021-02-03 03:41] VITALS: BP 112/60
[2021-02-03] MEDS: LACTATED RINGERS 1,000 ML IV SCH (04:05)
[2021-02-03] MEDS: oxyCODONE/APAP 5/325MG (PERCOCET 5) TABLET PO PRN ×2 (04:12→08:04)
[2021-02-03 05:44] LABS: HEMOGLOBIN 7.7 g/dL (13.3-17.7)
[2021-02-03] MEDS: ASPIRIN E.C. 81 MG (ECOTRIN) TAB PO SCH (07:49)
[2021-02-03] MEDS: ENOXAPARIN 40 MG/0.4 ML (LOVENOX) SYR SC SCH (07:50)
[2021-02-03 08:00] VITALS: BP 108/63
[2021-02-03] MEDS: RT-ALBUTEROL/IPRATROPIUM 3 ML (DUONEB) VIAL INH SCH ×2 (08:08→20:46)
--- NOTE | 2021-02-03 09:11 | Physical Therapy Daily Note ---
PT Daily Note-Current Subjective Patient reports he felt good this morning when he woke up with less pain, but noted his arms were very sore. Nurse reports the patient was just stood at bedside and transferred to a different bed. Patient agreeable to treatment. Pain Numeric Pain Scale: 5-Moderate Pain Location: Left Location Body Site: Hip Pain Description: Ache Mental Status Patient Orientation: Person, Place, Time, Situation Transfers SCALE: Activities may be completed with or without assistive devices. 2-Vpcnhsokjy-vykvuuw completes the activity by him/herself with no assistance from a helper. 5-Set-up or Clean-up Assistance-helper sets up or cleans up; patient completes activity. [place] assists only prior to or following the activity. 4-Supervision or Touching Assistance-helper provides verbal cues and/or touching/steadying and/or contact guard assistance as patient completes activity. Assistance may be provided throughout the activity or intermittently. 3-Partial/Moderate Assistance-helper does LESS THAN HALF the effort. [place] lifts, holds or supports trunk or limbs, but provides less than half the effort. 2-Substantial/Maximal Assistance-helper does MORE THAN HALF the effort. [place] lifts or holds trunk or limbs and provides more than half the effort. 9-Tgjciedbj-ezkbow does ALL the effort. Patient does none of the effort to complete the activity. Or, the assistance of 2 or more helpers is required for the patient to complete the activity. If activity was not attempted, code reason: 7-Patient Refused. 9-Not Applicable-not attempted and the patient did not perform the activity before the current illness, exacerbation or injury. 10-Not Attempted due to Environmental Limitations-(lack of equipment, weather restraints, etc.). 88-Not Attempted due to Medical Conditions or Safety Concerns. Roll Left & Right (QC): 3 Sit to Lying (QC): 3 Lying to Sitting/Side of Bed(Q: 3 Sit to Stand (QC): 3 Chair/Fmb-pf-Etxue Xfer(QC): 3 Toilet Transfer (QC): 3 Weight Bearing Right Lower Extremity: Right Full Weight Bearing Left Lower Extremity: Left Touch Toe Bearing Gait Training Does the Patient Walk?: Yes Distance: 3 feet Gait Assistive Device: FWW Patient is able to perform gait training/transfer to the chair with Hop to gait pattern on right LE. He is able to use the FWW better this visit with improved UE control. Patient compliant with left LE TTWB. Wheelchair Training Does the Pt Use a Wheelchair?: No Exercises Supine Ex: Ankle pumps, Quad Set, Glut sets, Heel Slides, Short Arc Quads, Straight leg raise Supine Reps: 20 Assessment Current Status: Good Progress Patient lying supine in bed upon PT arrival, agreeable to treatment. Patient performs LE therapeutic exercise as listed above with right LE AROM and left LE AAROM/PROM. Patient performs all observed bed mobility and transfers with min/mod A and verbal cues for progression. Patient transfers to the chair with hop to gait pattern on the right, maintaining Left LE TTWB. Patient in chair post treatment with all needs met, nursing notified, call light in reach. PT Short Term Goals Short Term Goals Time Frame: Feb 13, 2021 Roll Left & Right: 3 Sit to lyin Lying to sitting on side of be: 3 Sit to stand: 3 Chair/nxw-iu-xgabj transfer: 3 Toilet transfer: 3 Car transfer: 3 Walk 10 feet: 2 Walk 50 feet with two turns: 2 Walk 150 feet: 2 Walking 10ft on uneven surface: 2 1 step (curb): 2 4 steps: 2 12 steps: 2 Picking up objects: 2 Does pt use a wc or scooter: Yes Wheel 50ft w/2 turns: 3 Wheel 150 feet: 3 Type: Manual PT Weather Analyst Goals Long-Term Goals PT Weather Analyst Goals Time Frame: Feb 23, 2021 Roll Left & Right (QC): 5 Sit to Lying (QC): 5 Lying-Sitting on Side/Bed(QC): 5 Sit to Stand (QC): 5 Chair/Bsq-rn-Fseod Xfer(QC): 4 Toilet Transfer (QC): 4 Car Transfer (QC): 4 Does the Patient Walk: Yes Walk 10 feet (QC): 3 Walk 50ft with 2 Turns (QC): 3 Walk 150 ft (QC): 3 Walking 10ft on Uneven Surface: 3 1 Step (curb) (QC): 3 4 Steps (QC): 3 12 Steps (QC): 3 Picking up an Object (QC): 3 Does the Pt use WC or Scooter?: Yes Wheel 50 feet with 2 turns (QC: 5 Type: Manual Wheel 150 feet: 5 Type: Manual PT Plan Problem List Problem List: Activity Tolerance, Functional Strength, Safety, Balance, Gait, Transfer, Bed Mobility, ROM Treatment/Plan Treatment Plan: Continue Plan of Care Treatment Plan: Bed Mobility, Education, Functional Activity Molly, Functional Strength, Group Therapy, Gait, Safety, Therapeutic Exercise, Transfers Treatment Duration: Mar 02, 2021 Frequency: At least 5 of 7 days/Wk (IRF) Estimated Hrs Per Day: .25 hour per day Patient and/or Family Agrees t: Yes Time/GCodes Time In: 08 Time Out: 905 Total Billed Treatment Time: 45 Total Billed Treatment Visit, EX FA (2) MAME GUTIERREZ PT Feb 03, 2021 09:10
--- NOTE | 2021-02-03 09:16 | Progress Note ---
Standard Progress Note Progress Notes/Assess & Plan Date Seen by a Provider: Feb 03, 2021 Time Seen by a Provider: 09:15 Progress/Assessment & Plan no complaints Vital Signs Date Time Temp Pulse Resp B/P (MAP) Pulse Ox O2 Delivery O2 Flow Rate FiO2 02/02/21 07:00 94 Nasal Cannula 2.00 02/02/21 04:18 36.8 93 20 111/70 (84) 95 Nasal Cannula 2.00 02/01/21 23:46 36.5 96 20 106/65 (79) 97 Nasal Cannula 2.00 02/01/21 19:30 Nasal Cannula 2.00 02/01/21 19:25 36.8 102 22 110/57 (74) 95 Nasal Cannula 2.00 02/01/21 18:49 92 Nasal Cannula 2.00 02/01/21 16:30 36.6 99 24 144/83 (103) 95 Nasal Cannula 2.00 02/01/21 16:25 Nasal Cannula 2 02/01/21 16:20 37.2 18 106/93 (97) 94 Nasal Cannula 2 02/01/21 16:15 OxyMask 2 02/01/21 16:10 20 127/61 (83) 94 OxyMask 2 02/01/21 16:00 17 129/71 (90) 95 OxyMask 4 02/01/21 16:00 OxyMask 3 02/01/21 15:50 14 120/75 (90) 96 OxyMask 6 02/01/21 15:45 OxyMask 6 02/01/21 15:40 16 141/69 (93) 98 OxyMask 8 02/01/21 15:33 36.2 20 93/74 (80) 98 OxyMask 10 02/01/21 15:33 OxyMask 10 02/01/21 11:50 36.8 88 20 123/68 (86) 92 Room Air 02/01/21 08:00 92 Room Air 02/01/21 07:45 36.4 99 20 103/61 (75) 92 Room Air I & O 02/02/21 07:00 Intake Total 2190 ml Output Total 1400 ml Balance 790 ml Laboratory Tests Test 02/02/21 05:35 Range/Units Hemoglobin 8.5 #L 13.3-17.7 g/dL Hematocrit 26 L 40-54 % L hip echymotic. Dressing intact. Intact DF and PF of toes and ankle s/p L hip IM aarti strict TTWB IRU eval Final Diagnosis feeling better today Vital Signs Date Time Temp Pulse Resp B/P (MAP) Pulse Ox O2 Delivery O2 Flow Rate FiO2 02/03/21 08:08 92 Nasal Cannula 1.00 02/03/21 08:00 36.4 92 16 108/63 (78) 91 Nasal Cannula 0.50 02/03/21 03:41 36.9 96 18 112/60 (77) 95 Nasal Cannula 0.50 02/02/21 23:10 36.8 89 18 94/58 (70) 98 Nasal Cannula 1.00 02/02/21 20:45 Nasal Cannula 1.00 02/02/21 19:13 36.7 65 18 91/54 (66) 96 Nasal Cannula 1.00 02/02/21 18:30 92 Nasal Cannula 1.00 02/02/21 15:53 36.8 93 20 102/65 (77) 94 Nasal Cannula 1.00 02/02/21 12:10 36.8 96 22 107/56 (73) 95 Nasal Cannula 1.00 I & O 02/03/21 07:00 Intake Total 3527 ml Output Total 1975 ml Balance 1552 ml Laboratory Tests Test 02/03/21 05:20 Range/Units Hemoglobin 7.7 L 13.3-17.7 g/dL Hematocrit 24 L 40-54 % L hip incisions clean and dry. no calf tenderness s/p L hip IM aarti IRU if qualifies HUMERA BERNAL MD Feb 03, 2021 09:16
[2021-02-03] MEDS ORDERED: SENNA W/DOCUSATE (SENOKOT S) TABLET PO PRN (11:15)
[2021-02-03] MEDS ORDERED: BISACODYL 10 MG SUPP (DULCOLAX) PR PRN (11:15)
[2021-02-03 12:00] VITALS: BP 95/50
[2021-02-03 15:30] VITALS: BP 97/52
[2021-02-03 20:39] VITALS: BP 98/61
[2021-02-03] MEDS: polyethylene glycoL POWDER 17 GM (MIRALAX) PACK PO SCH (20:44)
[2021-02-04] VITALS (20 sets, daily range): BP systolic 99–130; BP diastolic 50–79
[2021-02-04 07:26] LABS: HEMOGLOBIN 7.5 g/dL (13.3-17.7)
[2021-02-04 07:36] LABS: BUN/CREATININE RATIO 16; CALCIUM 8.4 MG/DL (8.5-10.1); CARBON DIOXIDE 26 MMOL/L (21-32); CHLORIDE 102 MMOL/L (98-107); CREATININE SERUM 1.07 MG/DL (0.60-1.30); GFR ESTIMATED > 60; GLUCOSE 106 MG/DL (70-105); POTASSIUM 3.9 MMOL/L (3.6-5.0); SODIUM 138 MMOL/L (135-145)
[2021-02-04] MEDS: RT-ALBUTEROL/IPRATROPIUM 3 ML (DUONEB) VIAL INH SCH ×3 (07:49→21:26)
--- NOTE | 2021-02-04 07:51 | Progress Note ---
Standard Progress Note Progress Notes/Assess & Plan Date Seen by a Provider: Feb 04, 2021 Time Seen by a Provider: 07:50 Progress/Assessment & Plan no complaints Vital Signs Date Time Temp Pulse Resp B/P (MAP) Pulse Ox O2 Delivery O2 Flow Rate FiO2 02/02/21 07:00 94 Nasal Cannula 2.00 02/02/21 04:18 36.8 93 20 111/70 (84) 95 Nasal Cannula 2.00 02/01/21 23:46 36.5 96 20 106/65 (79) 97 Nasal Cannula 2.00 02/01/21 19:30 Nasal Cannula 2.00 02/01/21 19:25 36.8 102 22 110/57 (74) 95 Nasal Cannula 2.00 02/01/21 18:49 92 Nasal Cannula 2.00 02/01/21 16:30 36.6 99 24 144/83 (103) 95 Nasal Cannula 2.00 02/01/21 16:25 Nasal Cannula 2 02/01/21 16:20 37.2 18 106/93 (97) 94 Nasal Cannula 2 02/01/21 16:15 OxyMask 2 02/01/21 16:10 20 127/61 (83) 94 OxyMask 2 02/01/21 16:00 17 129/71 (90) 95 OxyMask 4 02/01/21 16:00 OxyMask 3 02/01/21 15:50 14 120/75 (90) 96 OxyMask 6 02/01/21 15:45 OxyMask 6 02/01/21 15:40 16 141/69 (93) 98 OxyMask 8 02/01/21 15:33 36.2 20 93/74 (80) 98 OxyMask 10 02/01/21 15:33 OxyMask 10 02/01/21 11:50 36.8 88 20 123/68 (86) 92 Room Air 02/01/21 08:00 92 Room Air 02/01/21 07:45 36.4 99 20 103/61 (75) 92 Room Air I & O 02/02/21 07:00 Intake Total 2190 ml Output Total 1400 ml Balance 790 ml Laboratory Tests Test 02/02/21 05:35 Range/Units Hemoglobin 8.5 #L 13.3-17.7 g/dL Hematocrit 26 L 40-54 % L hip echymotic. Dressing intact. Intact DF and PF of toes and ankle s/p L hip IM aarti strict TTWB IRU eval Final Diagnosis feeling down today L Vital Signs Date Time Temp Pulse Resp B/P (MAP) Pulse Ox O2 Delivery O2 Flow Rate FiO2 02/04/21 00:00 37.0 98 20 100/54 (69) 94 Nasal Cannula 0.50 02/03/21 20:46 94 Nasal Cannula 1.00 02/03/21 20:39 36.6 90 18 98/61 (73) 96 Nasal Cannula 0.50 02/03/21 20:00 94 Nasal Cannula 1.00 02/03/21 15:30 36.6 94 18 97/52 (67) 94 Nasal Cannula 0.50 02/03/21 12:00 36.0 81 20 95/50 (65) 95 Nasal Cannula 0.50 02/03/21 08:08 92 Nasal Cannula 1.00 02/03/21 08:00 92 Nasal Cannula 1.00 02/03/21 08:00 36.4 92 16 108/63 (78) 91 Nasal Cannula 0.50 I & O 02/04/21 06:59 Intake Total 1610 ml Output Total 1525 ml Balance 85 ml Laboratory Tests Test 02/04/21 07:15 Range/Units Hemoglobin 7.5 L 13.3-17.7 g/dL Hematocrit 23 L 40-54 % Sodium Level 138 135-145 MMOL/L Potassium Level 3.9 3.6-5.0 MMOL/L Chloride Level 102 98-107 MMOL/L Carbon Dioxide Level 26 21-32 MMOL/L Anion Gap 10 5-14 MMOL/L Blood Urea Nitrogen 17 7-18 MG/DL Creatinine 1.07 0.60-1.30 MG/DL Estimat Glomerular Filtration Rate > 60 BUN/Creatinine Ratio 16 Glucose Level 106 H 70-105 MG/DL Calcium Level 8.4 L 8.5-10.1 MG/DL L thigh echymotic. no calf tenderness. unable to perform SLR s/p L hip IM aarti strict TTWB IRU if qualifies HUMERA BERNAL MD Feb 04, 2021 07:51
[2021-02-04] MEDS ORDERED: CALC-250 PO (08:49)
[2021-02-04] MEDS ORDERED: GUAI600T43 PO (08:49)
[2021-02-04] MEDS ORDERED: IPRA3AMP31 INH (08:49)
[2021-02-04] MEDS: ENOXAPARIN 40 MG/0.4 ML (LOVENOX) SYR SC SCH (08:58)
[2021-02-04] MEDS: oxyCODONE/APAP 5/325MG (PERCOCET 5) TABLET PO PRN (08:58)
[2021-02-04] MEDS: ASPIRIN E.C. 81 MG (ECOTRIN) TAB PO SCH (08:59)
--- NOTE | 2021-02-04 11:15 | Physical Therapy Daily Note ---
PT Daily Note-Current Subjective Patient agrees to PT. Pain Numeric Pain Scale: 5-Moderate Pain Location: Left Location Body Site: Hip Pain Description: Acute Mental Status Patient Orientation: Normal For Age Transfers SCALE: Activities may be completed with or without assistive devices. 6-Eqxbxexfwd-tniktlb completes the activity by him/herself with no assistance from a helper. 5-Set-up or Clean-up Assistance-helper sets up or cleans up; patient completes activity. [place] assists only prior to or following the activity. 4-Supervision or Touching Assistance-helper provides verbal cues and/or touching/steadying and/or contact guard assistance as patient completes activity. Assistance may be provided throughout the activity or intermittently. 3-Partial/Moderate Assistance-helper does LESS THAN HALF the effort. [place] lifts, holds or supports trunk or limbs, but provides less than half the effort. 2-Substantial/Maximal Assistance-helper does MORE THAN HALF the effort. [place] lifts or holds trunk or limbs and provides more than half the effort. 8-Iznwwpwlz-cggdnu does ALL the effort. Patient does none of the effort to complete the activity. Or, the assistance of 2 or more helpers is required for the patient to complete the activity. If activity was not attempted, code reason: 7-Patient Refused. 9-Not Applicable-not attempted and the patient did not perform the activity before the current illness, exacerbation or injury. 10-Not Attempted due to Environmental Limitations-(lack of equipment, weather restraints, etc.). 88-Not Attempted due to Medical Conditions or Safety Concerns. Lying to Sitting/Side of Bed(Q: 3 Sit to Stand (QC): 3 Chair/Aqx-qu-Lfnwg Xfer(QC): 3 Weight Bearing Right Lower Extremity: Right Full Weight Bearing Left Lower Extremity: Left Touch Toe Bearing Gait Training Does the Patient Walk?: Yes Distance: 20' Walk 10 feet (QC): 3 Gait Assistive Device: FWW PT lowered FWW to allow patient to extend UE's to assist with TTWB left LE. Patient is able to comply with weight bearing status/slow, step to gait sequence Exercises Supine Ex: Ankle pumps, Quad Set, Heel Slides, Straight leg raise Supine Reps: 12 (AAROM left LE) Seated Therapy Exercises: Ankle pumps, Long arc quads Seated Reps: 15 Assessment Patient tolerated treatment well and is up in recliner. Patient displayed increase SOA with activity with SAO2 96% on RA. However, RN notified of elevated HR on vitals machine. PT Short Term Goals Short Term Goals Time Frame: Feb 13, 2021 Roll Left & Right: 3 Sit to lyin Lying to sitting on side of be: 3 Sit to stand: 3 Chair/znq-wg-unisc transfer: 3 Toilet transfer: 3 Car transfer: 3 Walk 10 feet: 2 Walk 50 feet with two turns: 2 Walk 150 feet: 2 Walking 10ft on uneven surface: 2 1 step (curb): 2 4 steps: 2 12 steps: 2 Picking up objects: 2 Does pt use a wc or scooter: Yes Wheel 50ft w/2 turns: 3 Wheel 150 feet: 3 Type: Manual PT Leather Roller Goals Leather Roller Goals PT Leather Roller Goals Time Frame: Feb 23, 2021 Roll Left & Right (QC): 5 Sit to Lying (QC): 5 Lying-Sitting on Side/Bed(QC): 5 Sit to Stand (QC): 5 Chair/Dee-jx-Ydngc Xfer(QC): 4 Toilet Transfer (QC): 4 Car Transfer (QC): 4 Does the Patient Walk: Yes Walk 10 feet (QC): 3 Walk 50ft with 2 Turns (QC): 3 Walk 150 ft (QC): 3 Walking 10ft on Uneven Surface: 3 1 Step (curb) (QC): 3 4 Steps (QC): 3 12 Steps (QC): 3 Picking up an Object (QC): 3 Does the Pt use WC or Scooter?: Yes Wheel 50 feet with 2 turns (QC: 5 Type: Manual Wheel 150 feet: 5 Type: Manual PT Plan Treatment/Plan Treatment Plan: Continue Plan of Care Treatment Plan: Bed Mobility, Education, Functional Activity Molly, Functional Strength, Group Therapy, Gait, Safety, Therapeutic Exercise, Transfers Treatment Duration: Mar 02, 2021 Frequency: At least 5 of 7 days/Wk (IRF) Estimated Hrs Per Day: .25 hour per day Patient and/or Family Agrees t: Yes Time/GCodes Time In: 1039 Time Out: 1102 Total Billed Treatment Time: 23 Total Billed Treatment 1 visit EX 10 min GT 13 min SHABBIR HOWARD PT Feb 04, 2021 11:15
[2021-02-04] MEDS ORDERED: dilTIAZem DRIP PRE-MIX 125 ML IV SCH (11:45)
--- NOTE | 2021-02-04 11:52 | Progress Note - Hospitalist ---
Subjective HPI/CC On Admission Date Seen by Provider: Feb 04, 2021 Time Seen by Provider: 11:40 Pt is an 80yoCM with no reported medical history who presented to the ER due to a fall. He was trying to get out of his door and fell down two steps landing on his left side. He was unfortunately down for about an hour prior to getting a ssistance as he was unable to stand. He was found to have a hip fracture and was admitted for repair. I am consulted for medical management. He reports he takes no prescription medicines but will take mucinex for phlegm. Otherwise he mostly just takes vitamins. He states he is very careful with his diet as well to maintain his weight and watches his carbs closely. Subjective/Events-last exam He is having some palpitations. He reports shortness of breath. He denies chest pain. Objective Exam Vital Signs Vital Signs Date Time Temp Pulse Resp B/P (MAP) Pulse Ox O2 Delivery O2 Flow Rate FiO2 02/04/21 11:09 36.8 98 93 21 02/04/21 08:19 20 104/66 (79) Nasal Cannula 0.50 Capillary Refill : Less Than 3 SecondsLess Than 3 Seconds General Appearance: No Apparent Distress, WD/WN Respiratory: Lungs Clear, Normal Breath Sounds, No Respiratory Distress Cardiovascular: Irregularly Irregular, Tachycardia Gastrointestinal: Normal Bowel Sounds, Non Tender, Soft Extremity: Normal Inspection, Non Tender, No Pedal Edema Neurologic/Psychiatric: Alert, Oriented x3, No Motor/Sensory Deficits, Normal Mood/Affect Skin: Normal Color, Warm/Dry Results/Procedures Lab Laboratory Tests 02/04/21 07:15 Patient resulted labs reviewed. Imaging: Reviewed Imaging Report Assessment/Plan Assessment and Plan Assess & Plan/Chief Complaint Displaced/comminuted intertrochanteric left femur fracture Management per primary s/p surgical repair (intermedullary aarti) with Dr. Morrison 02/01 PT/OT following IRU consulted AFib with RVR EKG showed AFib with RVR, new onset Transfer to ICU Begin IV Cardizem Begin therapeutic Lovenox Cardiology consulted, appreciate assistance Postoperative anemia Hgb trended down postop, now stable 7.5 Monitor MERVIN Cr improved, resolved Diagnosis/Problems Diagnosis/Problems (1) Atrial fibrillation with RVR Status: Acute (2) Intertrochanteric fracture of left femur Status: Acute (3) Postoperative anemia Status: Acute (4) MERVIN (acute kidney injury) Status: Acute NIKO BROWN MD Feb 04, 2021 11:52
[2021-02-04] MEDS ORDERED: RT-ALBUTEROL/IPRATROPIUM 3 ML (DUONEB) VIAL INH PRN (12:00)
[2021-02-04] MEDS: ENOXAPARIN 80 MG/0.8 ML (LOVENOX) SYR SC SCH ×2 (12:08→23:52)
--- NOTE | 2021-02-04 14:00 | Occ Therapy Progress Note ---
Therapy Progress Note Pt's orders received, chart reviewed. Pt transferred to ICU prior to entry, OT requires new orders due to higher level of care/ change in medical status. Thank you. MARIE THURSTON OTR Feb 04, 2021 13:59
--- NOTE | 2021-02-04 14:17 | Physical Therapy Progress Note ---
Therapy Progress Note Patient transferred to ICU due to change in medical status. PT requires new orders to resume therapy. SHABBIR HOWARD PT Feb 04, 2021 14:17
[2021-02-04] MEDS ORDERED: NS IV 500 ML 500 ML IV SCH (14:45)
--- NOTE | 2021-02-04 16:33 | Consultation-Cardiology ---
HPI-Cardiology Cardiology Consultation Date of Consultation 02/04/21 Date of Admission Time Seen by Provider: 11:40 Indication: Atrial fibrillation HPI 80 years old gentleman with no significant past medical history, sustained a fall resulted in hip fracture, patient was admitted to the hospital had hip replacement surgery, postoperatively he was doing well, had slightly progressive anemia, this morning he developed atrial fibrillation with rapid ventricular response. On my evaluation was laying down in bed, feeling slightly better, felt his heart racing. No chest pain. No syncope. Home Medications & Allergies Allergies: Coded Allergies: No Known Drug Allergies (Unverified , 01/23/12) Home Medication List Reviewed: Yes TLG-Lcfgdc-Gjjyar Hx Patient Social History Marital Status: Recreational Drug Use: No Smoking Status: Former Smoker 2nd Hand Smoke Exposure: No Recent Hopitalizations: Yes Have you traveled recently?: No Alcohol Use?: No Past Medical History Discussed below Family Medical History Family Medical Hx Noncontributory Review of Systems-General Review of Systems Constitutional: see HPI; No chills, No fever; malaise EENTM: see HPI; No blurred vision, No double vision, No nose congestion, No throat pain Respiratory: see HPI; No cough, No dyspnea on exertion, No hemoptysis, No orthopnea, No phlegm, No short of breath, No stridor, No wheezing, No other Cardiovascular: see HPI; No chest pain, No edema, No Hx of Intervention; palpitations; No syncope, No vascular heart diseas, No other Gastrointestinal: no symptoms reported, see HPI; No abdominal pain, No constipation, No diarrhea, No nausea, No vomiting Genitourinary: see HPI; No dysuria, No frequency Musculoskeletal: see HPI, other (Hip surgery) Skin: No lesions, No rash Psychiatric/Neurological: Denies Headache, Denies Numbness, Denies Tingling Reviewed Test Results Reviewed Test Results Lab Laboratory Tests Test 02/04/21 07:15 Range/Units Hemoglobin 7.5 L 13.3-17.7 g/dL Hematocrit 23 L 40-54 % Sodium Level 138 135-145 MMOL/L Potassium Level 3.9 3.6-5.0 MMOL/L Chloride Level 102 98-107 MMOL/L Carbon Dioxide Level 26 21-32 MMOL/L Anion Gap 10 5-14 MMOL/L Blood Urea Nitrogen 17 7-18 MG/DL Creatinine 1.07 0.60-1.30 MG/DL Estimat Glomerular Filtration Rate > 60 BUN/Creatinine Ratio 16 Glucose Level 106 H 70-105 MG/DL Calcium Level 8.4 L 8.5-10.1 MG/DL Physical Exam Physical Exam Vital Signs Vital Signs - First Documented 02/04/21 11:09 FiO2 21 Capillary Refill : Less Than 3 SecondsLess Than 3 Seconds Height, Weight, BMI Height: 6'2.00" Weight: 186lbs. oz. 81.447341vz; 23.42 BMI Method: General Appearance: No Apparent Distress, WD/WN HEENT: PERRL/EOMI, Moist Mucous Membranes, Scleral Icterus (L), Scleral Icterus (R) Neck: Normal Inspection, Supple Respiratory: Lungs Clear, Normal Breath Sounds, No Respiratory Distress Cardiovascular: Irregularly Irregular, Tachycardia Gastrointestinal: Normal Bowel Sounds, Non Tender, Soft Extremity: Normal Inspection, Non Tender, No Pedal Edema Neurologic/Psychiatric: Alert, Oriented x3, No Motor/Sensory Deficits, Normal Mood/Affect Skin: Normal Color, Warm/Dry A/P-Cardiology Admission Diagnosis Paroxysmal atrial fibrillation Palpitation Hip fracture Assessment/Plan Atrial fibrillation with rapid ventricular response, new onset, diagnosed today. Heart rate 140, started on Cardizem drip, adding metoprolol IV, started on Lovenox 1 mg/kg. Will evaluate 2D echo and monitor Anemia, probably will worsen when patient received full dose anticoagulation, I will proceed with transfusing 2 units of packed RBCs and evaluate tolerance and response Left hip fracture, underwent surgical repair with Dr. Morrison on February 01, 2021, receiving physical therapy Renal insufficiency, monitor renal function. Palpitations secondary to tachycardia JENNIFER RIVER MD Feb 04, 2021 16:33
[2021-02-04] MEDS: meTOprolol 5 MG/5 ML (LOPRESSOR) VIAL IV SCH ×2 (18:08→23:52)
[2021-02-04] MEDS: polyethylene glycoL POWDER 17 GM (MIRALAX) PACK PO SCH (20:25)
--- NOTE | 2021-02-04 22:22 | DISCHARGE SUMMARY ---
DATE OF SERVICE: DIAGNOSES: 1. Left intertrochanteric femur fracture. 2. Anemia secondary to traumatic blood loss and operative blood loss. 3. Chronic obstructive pulmonary disease. PROCEDURE: Left hip intramedullary aarti. SUMMARY: The patient is an 80-year-old gentleman who was admitted following a fall and was found to have a left intertrochanteric femur fracture. He underwent internal fixation with a aarti and postoperatively was progressing well. At the time of discharge, his wound was clean and dry. He was progressing with physical therapy. He was tolerating his diet well and tolerating pain with oral pain medication. CONDITION AT DISCHARGE: Good. DISCHARGE DIET: Regular. DISPOSITION: Transferred to the inpatient rehabilitation unit for continued physical and occupational therapy. Job ID: [id number] DocumentID: [id number] Dictated Date: 02/04/2021 07:52:52 Cocktail Server Date: 02/04/2021 22:21:23 Dictated By: HUMERA BERNAL MD
[2021-02-05] VITALS (12 sets, daily range): BP systolic 86–147; BP diastolic 53–80
[2021-02-05] MEDS: fentaNYL INJ 100 MCG/2 ML AMP IV PRN (00:13)
[2021-02-05 04:04] LABS: BASOPHILS % (AUTO) 0 % (0-10); EOSINOPHILS # (AUTO) 0.1 10^3/uL (0.0-0.3); EOSINOPHILS % (AUTO) 1 % (0-10); HEMATOCRIT 28 % (40-54); HEMOGLOBIN 9.2 g/dL (13.3-17.7); LYMPHOCYTES # (AUTO) 1.4 10^3/uL (1.0-4.0); LYMPHOCYTES % (AUTO) 15 % (12-44); MEAN CORPUSCULAR HEMOGLOBIN 32 pg (25-34); MEAN CORPUSCULAR HGB CONC 33 g/dL (32-36); MEAN CORPUSCULAR VOLUME 96 fL (80-99); MEAN PLATELET VOLUME 10.6 fL (9.0-12.2); MONOCYTES # (AUTO) 1.2 10^3/uL (0.0-1.0); MONOCYTES % (AUTO) 13 % (0-12); NEUTROPHILS # (AUTO) 6.6 10^3/uL (1.8-7.8); NEUTROPHILS % (AUTO) 70 % (42-75); PLATELET COUNT 186 10^3/uL (130-400); WHITE BLOOD COUNT 9.4 10^3/uL (4.3-11.0)
[2021-02-05 05:10] LABS: CALCIUM 8.4 MG/DL (8.5-10.1); CREATININE SERUM 1.17 MG/DL (0.60-1.30); MAGNESIUM 2.2 MG/DL (1.6-2.4); PHOSPHORUS 2.9 MG/DL (2.3-4.7); POTASSIUM 3.8 MMOL/L (3.6-5.0)
[2021-02-05] MEDS: oxyCODONE/APAP 5/325MG (PERCOCET 5) TABLET PO PRN ×2 (05:37→13:15)
[2021-02-05] MEDS: meTOprolol 5 MG/5 ML (LOPRESSOR) VIAL IV SCH ×2 (05:38→13:05)
[2021-02-05] MEDS ORDERED: MAGNESIUM 1 GM/100 ML IVPB 100 ML IV SCH (06:00)
[2021-02-05] MEDS ORDERED: POTASSIUM CL 10MEQ/50ML IVPB 50 ML IV SCH (06:00)
[2021-02-05] MEDS ORDERED: KCL 20 MEQ TAB (K-DUR) PO SCH (06:00)
[2021-02-05] MEDS: RT-ALBUTEROL/IPRATROPIUM 3 ML (DUONEB) VIAL INH SCH (07:27)
--- NOTE | 2021-02-05 07:52 | Cardiology Progress Note ---
Subjective Date Seen by Provider: Feb 05, 2021 Time Seen by Provider: 07:50 Subjective/Events-last exam Patient was seen at bedside laying down comfortably, converted back to sinus rhythm Review of Systems General: No Chills, No Night Sweats, No Fatigue, No Malaise, No Appetite, No Other HEENT: No Head Aches, No Visual Changes, No Eye Pain, No Ear Pain, No Dysphasia , No Sinus Congestion, No Post Nasal Drip, No Sore Throat, No Other Pulmonary: No Dyspnea, No Cough, No Pleuritic Chest Pain, No Other Cardiovascular: No: Chest Pain, Palpitations, Orthopnea, Paroxysmal Noc. Dyspnea, Edema, Lt Headedness, Other Objective-Cardiology Exam Last Set of Vital Signs Vital Signs 02/04/21 02/05/21 02/05/21 02/05/21 11:09 01:54 06:00 07:27 Temp 36.6 Pulse 53 Resp 15 B/P (MAP) 147/68 (94) Pulse Ox 94 O2 Delivery Nasal Cannula O2 Flow Rate 2.00 FiO2 21 Capillary Refill : Less Than 3 SecondsLess Than 3 Seconds I&O Intake and Output 02/04/21 23:59 Intake Total 810 ml Output Total 1245 ml Balance -435 ml Intake Oral 810 ml Output Urine Total 1245 ml General: Alert, Oriented X3, Cooperative HEENT: Atraumatic, PERRLA Neck: Supple, No JVD, No Thyromegaly Lungs: Clear to Auscultation, Normal Air Movement Heart: Regular Rate, Normal S1, Normal S2, No Murmurs Abdomen: Normal Bowel Sounds, Soft, No Tenderness, No Hepatosplenomegaly, No Masses Extremities: No Clubbing, No Cyanosis, No Edema, Normal Pulses, No Tenderness/Swelling Skin: No Rashes, No Breakdown, No Significant Lesion Neuro: Normal Gait, Normal Speech, Strength at 5/5 X4 Ext, Normal Tone, Sensation Intact Psych/Mental Status: Mental Status NL, Mood NL Results Lab Laboratory Tests 02/05/21 03:20 A/P-Cardiology Admission Diagnosis Paroxysmal atrial fibrillation Palpitation Hip fracture Assessment/Plan Postop atrial fibrillation with rapid ventricular response, controlled by diltiazem and converted back spontaneously to sinus rhythm. Borderline hypotension, DC diltiazem, was on Lopressor IV which will be discontinued I will use oral Lopressor and evaluate tolerance and response. Anemia, probably will worsen when patient received full dose anticoagulation, I will proceed with transfusing 2 units of packed RBCs and evaluate tolerance and response Left hip fracture, underwent surgical repair with Dr. Morrison on February 01, 2021, receiving physical therapy Renal insufficiency, monitor renal function. Palpitations secondary to tachycardia Okay to transfer to JENNIFER MANRIQUE MD Feb 05, 2021 7:51 am
[2021-02-05] MEDS: ASPIRIN E.C. 81 MG (ECOTRIN) TAB PO SCH (09:35)
--- NOTE | 2021-02-05 11:46 | Physical Therapy Evaluation ---
PT Evaluation-General Medical Diagnosis Admission Date Jan 31, 2021 at 17:31 Medical Diagnosis: Left Femur fracture Onset Date: Feb 01, 2021 Therapy Diagnosis Therapy Diagnosis: debility/weakness Height/Weight Height (Feet): 6 Height (Inches): 2.00 Weight (Pounds): 186 Precautions Precautions/Isolations: Fall Prevention, Standard Precautions Weight Bear Status Right Lower Extremity: Right Full Weight Bearing Left Lower Extremity: Left Touch Toe Bearing Referral Physician: [employer] Reason for Referral: Evaluation/Treatment, Strengthening, Gait, ROM Medical History Pertinent Medical History: Atrial Fib Current History new onset A-Fib resulting in transfer to ICU Reviewed History: Yes Social History Home: Single Level Current Living Status: Alone Entry Into Home: Stairs Without Railing PT Steps Into Home: 2 Prior Prior Level of Function SCALE: Activities may be completed with or without assistive devices. 3-Ivnxuokuxc-ioaddme completes the activity by him/herself with no assistance from a helper. 5-Set-up or Clean-up Assistance-helper sets up or cleans up; patient completes activity. [place] assists only prior to or following the activity. 4-Supervision or Touching Assistance-helper provides verbal cues and/or touching/steadying and/or contact guard assistance as patient completes activity. Assistance may be provided throughout the activity or intermittently. 3-Partial/Moderate Assistance-helper does LESS THAN HALF the effort. [place] lifts, holds or supports trunk or limbs, but provides less than half the effort. 2-Substantial/Maximal Assistance-helper does MORE THAN HALF the effort. [place] lifts or holds trunk or limbs and provides more than half the effort. 4-Jvyokrtrg-fsxhrc does ALL the effort. Patient does none of the effort to complete the activity. Or, the assistance of 2 or more helpers is required for the patient to complete the activity. If activity was not attempted, code reason: 7-Patient Refused. 9-Not Applicable-not attempted and the patient did not perform the activity before the current illness, exacerbation or injury. 10-Not Attempted due to Environmental Limitations-(lack of equipment, weather restraints, etc.). 88-Not Attempted due to Medical Conditions or Safety Concerns. Bed Mobility: 6 Transfers (B,C,W/C): 6 Gait: 6 Stairs: 6 Indoor Mobility (Ambulation): Independent Stairs: Independent Prior Devices Use: None Prior Device Use: none PT Evaluation-Current Subjective Patient is very agreeable to participate with therapy. Pain Numeric Pain Scale: 5-Moderate Pain Location: Left Location Body Site: Hip Pain Description: Acute Objective Patient Orientation: Normal For Age Attachments: Oxygen ROM/Strength ROM Lower Extremities left LE slightly limited due to edema from left hip fracture with repair/right LE WFL Strength Lower Extremities right LE 4-/5 grossly all planes/left LE 3/5 grossly all planes Integumentary/Posture Integumentary refer to nursing notes Bowel Incontinence: No Bladder Incontinence: No Posture slight trunk flexed posture in stand to FWW due to left hip pain Sensory Vision: Wears Glasses Hearing: Functional Sensation Right Lower Extremit: Intact Sensation Left Lower Extremity: Intact Transfers Lying to Sitting/Side of Bed(Q: 3 Sit to Stand (QC): 3 Chair/Bvk-rk-Vjbjt Xfer(QC): 3 Toilet Transfer (QC): 3 Gait Does the Patient Walk?: Yes Mode of Locomotion: Walk Anticipated Mode of Locomotion: Walk Walk 10 feet (QC): 3 (compliance with TTWB left LE ) Walk 50 ft with 2 Turns(QC): 88 Walk 150 ft (QC): 88 Gait Assistive Device: FWW Balance Sitting Static: Normal Sitting Dynamic: Normal Standing Static: Fair Standing Dynamic: Fair Picking up an Object (QC): 88 Assessment/Needs 80 y.o. male, will benefit from skilled PT to address functional strength and mobility to improve current LOF to safely return to home at maximum LOF. Rehab Potential: Fair PT Short Term Goals Short Term Goals Time Frame: Feb 13, 2021 Roll Left & Right: 3 Sit to lyin Lying to sitting on side of be: 3 Sit to stand: 3 Chair/cum-lr-kzrjg transfer: 3 Toilet transfer: 3 Car transfer: 3 Walk 10 feet: 3 Walk 50 feet with two turns: 3 Walk 150 feet: 2 Walking 10ft on uneven surface: 2 1 step (curb): 2 4 steps: 2 12 steps: 2 Picking up objects: 2 Does pt use a wc or scooter: Yes Wheel 50ft w/2 turns: 3 Wheel 150 feet: 3 Type: Manual PT Residential Goals Residential Goals PT Suppression Crew Leader Goals Time Frame: Feb 23, 2021 Roll Left & Right (QC): 5 Sit to Lying (QC): 5 Lying-Sitting on Side/Bed(QC): 5 Sit to Stand (QC): 5 Chair/Nmp-ou-Vwrrk Xfer(QC): 4 Toilet Transfer (QC): 4 Car Transfer (QC): 4 Does the Patient Walk: Yes Walk 10 feet (QC): 3 Walk 50ft with 2 Turns (QC): 3 Walk 150 ft (QC): 3 Walking 10ft on Uneven Surface: 3 1 Step (curb) (QC): 3 4 Steps (QC): 3 12 Steps (QC): 3 Picking up an Object (QC): 3 Does the Pt use WC or Scooter?: Yes Wheel 50 feet with 2 turns (QC: 5 Type: Manual Wheel 150 feet: 5 Type: Manual PT Plan Problem List Problem List: Activity Tolerance, Functional Strength, Balance, Gait, Transfer, Bed Mobility Treatment/Plan Treatment Plan: Continue Plan of Care Treatment Plan: Bed Mobility, Education, Functional Activity Molly, Functional Strength, Group Therapy, Gait, Safety, Therapeutic Exercise, Transfers Treatment Duration: Feb 23, 2021 Frequency: 11 times per week Estimated Hrs Per Day: .5 hour per day Patient and/or Family Agrees t: Yes Safety Risks/Education Patient Education: Gait Training, Safety Issues Time/GCodes Time In: 1121 Time Out: 1136 Total Billed Treatment Time: 15 Total Billed Treatment 1 visit [id number] min SHABBIR HOWARD PT Feb 05, 2021 11:46
[2021-02-05] MEDS: ENOXAPARIN 80 MG/0.8 ML (LOVENOX) SYR SC SCH (13:05)
--- NOTE | 2021-02-05 13:16 | Progress Note - Hospitalist ---
Subjective HPI/CC On Admission Date Seen by Provider: Feb 05, 2021 Time Seen by Provider: 09:35 Pt is an 80yoCM with no reported medical history who presented to the ER due to a fall. He was trying to get out of his door and fell down two steps landing on his left side. He was unfortunately down for about an hour prior to getting a ssistance as he was unable to stand. He was found to have a hip fracture and was admitted for repair. I am consulted for medical management. He reports he takes no prescription medicines but will take mucinex for phlegm. Otherwise he mostly just takes vitamins. He states he is very careful with his diet as well to maintain his weight and watches his carbs closely. Subjective/Events-last exam He is feeling better today. He denies palpitations and chest pain. He has no other complaints or concerns. Objective Exam Vital Signs Vital Signs Date Time Temp Pulse Resp B/P (MAP) Pulse Ox O2 Delivery O2 Flow Rate FiO2 02/05/21 11:38 36.6 02/05/21 11:00 108 9 Nasal Cannula 2.00 02/05/21 10:00 93 02/04/21 11:09 21 Capillary Refill : Less Than 3 SecondsLess Than 3 Seconds General Appearance: No Apparent Distress, WD/WN Respiratory: Lungs Clear, Normal Breath Sounds, No Respiratory Distress Cardiovascular: Regular Rate, Rhythm, No Edema, No Murmur Gastrointestinal: Normal Bowel Sounds, Non Tender, Soft Extremity: Normal Inspection, Non Tender, No Pedal Edema Neurologic/Psychiatric: Alert, Oriented x3, No Motor/Sensory Deficits, Normal Mood/Affect Skin: Normal Color, Warm/Dry Results/Procedures Lab Laboratory Tests 02/05/21 03:20 Patient resulted labs reviewed. Imaging: Reviewed Imaging Report Assessment/Plan Assessment and Plan Assess & Plan/Chief Complaint Displaced/comminuted intertrochanteric left femur fracture Management per primary s/p surgical repair (intermedullary aarti) with Dr. Morrison 02/01 PT/OT following Transfer to IRF today AFib with RVR EKG showed AFib with RVR, new onset Cardiology consulted, appreciate assistance Transitioned to oral metoprolol Therapeutic Lovenox Postoperative anemia Hgb trended down postop s/p 2 units PRBC Hgb improved 9.2 this morning MERVIN Cr improved, resolved Diagnosis/Problems Diagnosis/Problems (1) Atrial fibrillation with RVR Status: Acute (2) Intertrochanteric fracture of left femur Status: Acute (3) Postoperative anemia Status: Acute (4) MERVIN (acute kidney injury) Status: Acute NIKO BROWN MD Feb 05, 2021 13:16
[2021-02-05] MEDS ORDERED: meTOprolol TARTRATE 25 MG (LOPRESSOR) TABLET PO SCH (21:00)
[2021-02-06] MEDS ORDERED: ENOXAPARIN 40 MG/0.4 ML (LOVENOX) SYR SQ SCH (13:00)
--- NOTE | 2021-02-06 21:31 | DISCHARGE SUMMARY ---
DATE OF SERVICE: ADDENDUM: The patient was scheduled to be discharged to the inpatient rehabilitation unit on 02/04/2021; however, he developed a new onset atrial fibrillation for which Dr. Roque was consulted. He was stabilized in the intensive care unit and kept overnight and then ultimately transferred and discharged to the inpatient rehabilitation unit on 02/05/2021. Job ID: [id number] DocumentID: [id number] Dictated Date: 02/06/2021 08:45:17 Bonded Strand Operator Date: 02/06/2021 21:30:22 Dictated By: HUMERA BERNAL MD
== END 2021-02-05 14:31 | DRG 481 ==
LOC: EDUNIT# 16:55 → ER 16:57 → 4TH 17:31 → ICU 02-04 12:56
PROVIDERS: ADMIT Orthopaedic Surgery; ATTEND Orthopaedic Surgery
PROC: 0QS736Z Reposition Left Upper Femur with Intramedullary Internal Fixation Device, Percutaneous Approach (ICD-10-PCS; principal; 2021-02-01 13:39)
DX: S72.142A Displaced intertrochanteric fracture of left femur, initial encounter for closed fracture (principal); D62 Acute posthemorrhagic anemia; N17.9 Acute kidney failure, unspecified; I48.0 Paroxysmal atrial fibrillation; I10 Essential (primary) hypertension; J44.9 Chronic obstructive pulmonary disease, unspecified; E03.9 Hypothyroidism, unspecified; K21.9 Gastro-esophageal reflux disease without esophagitis; E78.00 Pure hypercholesterolemia, unspecified; Z87.891 Personal history of nicotine dependence; Z79.2 Long term (current) use of antibiotics; W10.9XXA Fall (on) (from) unspecified stairs and steps, initial encounter; Z91.81 History of falling; Y92.008 Other place in unspecified non-institutional (private) residence as the place of occurrence of the external cause
CPT/HCPCS: 36415; 71045; 76000; 80048; 80053; 81000; 82550; 83735; 84100; 85007; 85014; 85018; 85025; 85027; 85610; 86850; 86900; 86901; 86920; 87081; 87088; 93005; 93306; 94640; 94760; 96374; 96376

== ENCOUNTER 2021-02-05 13:11 | Inpatient (IN) | payer MEDICARE ==
[~2021-02-05] VITALS: Ht 188 cm; Wt 82.7 kg
[~2021-02-05 13:11] MED LIST changes: +CALC-250 PO; +GUAI600T43 PO; +IPRA3AMP31 INH
[2021-02-05] MEDS ORDERED: ONDANSETRON 4 MG (ZOFRAN) ORAL DISSOLVE TAB PO PRN (13:45)
[2021-02-05] MEDS ORDERED: HYDROcodone/APAP 5 MG/325 MG (LORTAB) TAB PO PRN (13:45)
[2021-02-05] MEDS ORDERED: LACTULOSE SYRUP 10GM/15ML (ENULOSE) 30ML UDC PO PRN (13:45)
[2021-02-05] MEDS ORDERED: DOCUSATE SODIUM 100 MG (COLACE) CAP PO PRN (13:45)
[2021-02-05] MEDS ORDERED: BISACODYL 10 MG SUPP (DULCOLAX) PR PRN ×2 (13:45→17:45)
[2021-02-05] MEDS ORDERED: ALPRAZolam 0.25 MG (XANAX) TAB PO PRN (13:45)
[2021-02-05] MEDS ORDERED: diphenhydrAMINE 25 MG TAB (BENADRYL) PO PRN (13:45)
[2021-02-05] MEDS ORDERED: FLEET ENEMA ADULT 1 EA BTL PR PRN (13:45)
[2021-02-05] MEDS ORDERED: guaiFENesin/CODEINE (ROBITUSSIN AC) 10ML UDC PO PRN (13:45)
[2021-02-05] MEDS ORDERED: LOPERAMIDE 2 MG (IMODIUM) TABLET PO PRN (13:45)
[2021-02-05] MEDS ORDERED: CALCIUM CARBONATE 500 MG (TUMS) TAB.CHEW PO PRN (13:45)
[2021-02-05] MEDS ORDERED: ACETAMINOPHEN 325 MG TABLET PO PRN ×2 (13:45→17:45)
[2021-02-05] MEDS ORDERED: MELATONIN 3 MG TABLET PO PRN (13:45)
[2021-02-05 14:30] VITALS: BP 120/68
[2021-02-05] MEDS ORDERED: RT-ALBUTEROL/IPRATROPIUM 3 ML (DUONEB) VIAL INH SCH (15:00)
--- NOTE | 2021-02-05 15:13 | Occupational Therapy Eval ---
OT Evaluation-General/PLF Medical Diagnosis Admission Date Feb 05, 2021 at 14:12 Medical Diagnosis: Left femur fx/ IM nail Onset Date: Jan 31, 2021 Therapy Diagnosis Therapy Diagnosis: Decreased ADL skills Height/Weight Height (Feet): 6 Height (Inches): 2.00 Weight (Pounds): 186 Weight Bear Status Weight Bearing Restriction: Touch Toe Bearing Location Restriction: L LE Referral Physician: Dr. Hoang Referral Reason: Activity Tolerance, Self Care, Evaluation/Treatment, Strengthening/ROM Medical History Pertinent Medical History: Atrial Fib, Neuropathy Current History Pt. fell at home. Sustained left femur fx. Underwent IM nailing. Pt. currently TTWB. Reviewed History: Yes Social History Home: Single Level Current Living Status: Alone Entry Into Home: Stairs With Railing Steps Into Home: 2 ADL-Prior Level of Function SCALE: Activities may be completed with or without assistive devices. 1-Bllleoneqd-meytshw completes the activity by him/herself with no assistance from a helper. 5-Set-up or Clean-up Assistance-helper sets up or cleans up; patient completes activity. [place] assists only prior to or following the activity. 4-Supervision or Touching Assistance-helper provides verbal cues and/or touching/steadying and/or contact guard assistance as patient completes activity. Assistance may be provided throughout the activity or intermittently. 3-Partial/Moderate Assistance-helper does LESS THAN HALF the effort. [place] lifts, holds or supports trunk or limbs, but provides less than half the effort. 2-Substantial/Maximal Assistance-helper does MORE THAN HALF the effort. [place] lifts or holds trunk or limbs and provides more than half the effort. 4-Igtjyjawr-fpyvsx does ALL the effort. Patient does none of the effort to complete the activity. Or, the assistance of 2 or more helpers is required for the patient to complete the activity. If activity was not attempted, code reason: 7-Patient Refused. 9-Not Applicable-not attempted and the patient did not perform the activity before the current illness, exacerbation or injury. 10-Not Attempted due to Environmental Limitations-(lack of equipment, weather restraints, etc.). 88-Not Attempted due to Medical Conditions or Safety Concerns. ADL PLOF Comments Pt. states that he was independent with daily tasks prior to this hospitalization. Self Care: Independent Functional Cognition: Unknown DME/Equipment: Grab Bars, Shower DME/Equipment Comments Pt. states that he might have a walker from a relative, but he will have to check. He does not use one for ambulation. 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 [address] Self: Yes OT Current Status Subjective Pt. does not report pain level. Mental Status/Objective Patient Orientation: Person, Place Pt. requires cues for re-direction at times. Attachments: Oxygen Current Glasses/Contacts: Yes Upper Extremity ROM WFL Upper Extremity Strength WFL ADL-Treatment Eating (QC): 4 (Per pt) Oral Hygiene (QC): 88 Shower/Bathe Self (QC): 2 (Pt. requires assistance to wash bilateral feet and dino area in stance. Pt. able to wash all other parts seated with cues.) Upper Body Dressing (QC): 88 Lower Body Dressing (QC): 2 (Per clinical judgement.) On/Off Footwear (QC): 2 Toileting Hygiene (QC): 88 Other Treatments Pt. seen for co-treatment with PT/OT due to need of skilled assistance x 2 due to low endurance and strength. Pt. tolerated treatment well with increased need for re-direction at times. OT focused on ADL training while PT focused on mobility and LE assessment. Pt. able to stand with mod/max x 1, depending of surface. Ambulated with min/mod several times in parallel bars with wheelchair follow. Cues for weight shift and bringing left LE forward. Pt. unable to bring feet up to him or fully bend over to reach. Requires assistance to bring feet into bed. All needs met at end of session at bed level. Education OT Patient Education: Correct positioning, Modified ADL techniques, Progress toward Goal/Update tx plan, Purpose of tx/functional activities, Reviewed precautions, Rehab process, Transfer techniques Teaching Recipient: Patient Teaching Methods: Demonstration, Discussion Response to Teaching: Verbalize Understanding, Return Demonstration OT Short Term Goals Short Term Goals Time Frame: Feb 12, 2021 Eatin Oral hygiene: 4 Toileting hygiene: 3 Shower/bathe self: 3 Upper body dressin Lower body dressin Putting on/taking off footwear: 3 OT Shelter Goals Ortho Assistant Goals Time Frame: Feb 19, 2021 Eating (QC): 6 Oral Hygiene (QC): 6 Toileting Hygiene (QC): 6 Shower/Bathe Self (QC): 4 Upper Body Dressing (QC): 6 Lower Body Dressing (QC): 6 On/Off Footwear (QC): 6 Additional Goals: 1-Demonstrate ADL Tasks, 2-Verbalize Understanding, 3- ImproveStrength/Molly 1=Demonstrate adherence to instructed precautions during ADL tasks. 2=Patient will verbalize/demonstrate understanding of assistive devices/modifications for ADL. 3=Patient will improve strength/tolerance for activity to enable patient to perform ADL's. OT Education/Plan Problem List/Assessment Assessment: Decreased Activ Tolerance, Decreased UE Strength, Dependent Transfers, Impaired Bed Mobility, Impaired Funct Balance, Impaired I ADL's, Impaired Self-Care Skills Discharge Recommendations Plan/Recommendations: Continue POC Therapy Discharge Recommendati: Post Acute OT Equpiment Recommendations-D/C: Hip Kit Treatment Plan/Plan of Care Treatment,Training & Education: Yes Patient would benefit from OT for education, treatment and training to promote independence in ADL's, mobility, safety and/or upper extremity function for ADL's. Plan of Care: ADL Retraining, Functional Mobility, UE Funct Exercise/Act Treatment Duration: Feb 19, 2021 Frequency: At least 5 of 7 days/Wk (IRF) Estimated Hrs Per Day: 1.5 hours per day Agreement: Yes Rehab Potential: Good Time/GCodes Start Time: 14:20 Stop Time: 15:50 Total Time Billed (hr/min): 90 Billed Treatment Time 3495-3163 1, EVH x 10minutes [id number] ADL x 35minutes, FA x [id number] with PT JOCELYNE MADRIGAL OT Feb 05, 2021 15:13
--- NOTE | 2021-02-05 15:45 | Physical Therapy Evaluation ---
PT Evaluation-General Medical Diagnosis Admission Date Feb 05, 2021 at 14:12 Medical Diagnosis: Left femur fx/ IM nail Onset Date: Jan 31, 2021 Therapy Diagnosis Therapy Diagnosis: impaired mobility, strength, endurance Height/Weight Height (Feet): 6 Height (Inches): 2.00 Weight (Pounds): 186 Weight Bear Status Left Lower Extremity: Left Touch Toe Bearing Referral Physician: Poornima Hoang DO Reason for Referral: Evaluation/Treatment Medical History Pertinent Medical History: Atrial Fib, Neuropathy Reviewed History: Yes Social History Home: Single Level (has a basement that he uses) Current Living Status: Alone Entry Into Home: Stairs With Railing PT Steps Into Home: 2 Prior Prior Level of Function SCALE: Activities may be completed with or without assistive devices. 4-Mgblwtyixl-dihfodv completes the activity by him/herself with no assistance from a helper. 5-Set-up or Clean-up Assistance-helper sets up or cleans up; patient completes activity. [place] assists only prior to or following the activity. 4-Supervision or Touching Assistance-helper provides verbal cues and/or touching/steadying and/or contact guard assistance as patient completes activit y. Assistance may be provided throughout the activity or intermittently. 3-Partial/Moderate Assistance-helper does LESS THAN HALF the effort. [place] lifts, holds or supports trunk or limbs, but provides less than half the effort. 2-Substantial/Maximal Assistance-helper does MORE THAN HALF the effort. [place] lifts or holds trunk or limbs and provides more than half the effort. 4-Txaqzoigu-wuktxj does ALL the effort. Patient does none of the effort to complete the activity. Or, the assistance of 2 or more helpers is required for the patient to complete the activity. If activity was not attempted, code reason: 7-Patient Refused. 9-Not Applicable-not attempted and the patient did not perform the activity before the current illness, exacerbation or injury. 10-Not Attempted due to Environmental Limitations-(lack of equipment, weather restraints, etc.). 88-Not Attempted due to Medical Conditions or Safety Concerns. Bed Mobility: 6 Transfers (B,C,W/C): 6 Gait: 6 Stairs: 6 Indoor Mobility (Ambulation): Independent Stairs: Independent PT Evaluation-Current Subjective Patient in recliner pre tx, agrees to PT, has 5/10 pain in left hip. Will be co-treating with OT for part of tx due to poor patient mobility, strength, en durance, severe pain with activity, coordinate UE and LE during activity. Pt/Family Goals to be independent at home Objective Patient Orientation: Person, Place, Situation Attachments: Oxygen ROM/Strength ROM Lower Extremities LLE not tested, RLE WNL Strength Lower Extremities LLE not tested, RLE (hip flexion 3-/5, knee flexion 4/5, knee extension 4/5, dorsiflexion 4+/5) Sensory Vision: Wears Glasses Hearing: Functional Sensation Right Lower Extremit: Impaired Sensation Left Lower Extremity: Impaired Sensation Lower Extremities has neuropathy, decreased sensation from lower calf down Transfers Roll Left & Right (QC): 3 Sit to Lying (QC): 3 Lying to Sitting/Side of Bed(Q: 3 Sit to Stand (QC): 3 Chair/Wek-ih-Jztna Xfer(QC): 3 Toilet Transfer (QC): 3 Car Transfer (QC): 3 Patient performs bed mobility with min assist, supine <-> sit mod assist, sit <- > stand min assist, transfers min assist, car transfer mod assist. Patient needs occasional cues for positioning and safety. He tries to be compliant with TTWB on the left leg and is most of the time but occasionally puts too much weight through it. Gait Does the Patient Walk?: Yes Mode of Locomotion: Both Anticipated Mode of Locomotion: Both Walk 10 feet (QC): 88 Walk 50 ft with 2 Turns(QC): 88 Walk 150 ft (QC): 88 Walking 10ft/uneven surface-QC: 88 Distance: 6'x3 Gait Assistive Device: Parallel Bars Comments/Gait Description Patient can ambulate 6' in the parallel bars with min assist. He is able to hop a little with his right foot but has to slide his left foot across the floor to advance it. Wheelchair Training Does the Pt Use a Wheelchair?: Yes Distance: 150' Wheel 50 ft with 2 turns (QC): 3 Wheel 150 ft (QC): 3 Type of Wheelchair: Manual Stairs 1 Step (curb) (QC): 88 4 Steps (QC): 88 12 Steps (QC): 88 Balance Sitting Static: Normal Sitting Dynamic: Normal Standing Static: Fair Standing Dynamic: Poor Picking up an Object (QC): 88 Treatment PT performed bed mobility and transfers, ambulation, WC mobility, assisted with balance and positioning during bathing and dressing, OT performed bathing and dressing and UE positioning and safety during activity. Assessment/Needs Patient in bed post tx with nurse call, phone, tray, all needs met. Patient has impaired mobility, strength, endurance. Needs assist with both legs getting into and out of bed but just min assist to stand and transfer. Rehab Potential: Fair PT Short Term Goals Short Term Goals Time Frame: Feb 12, 2021 Roll Left & Right: 4 Sit to lyin Lying to sitting on side of be: 3 Sit to stand: 4 Chair/pwj-th-shldl transfer: 4 Walk 10 feet: 4 PT [place] Goals [facility] Goals PT [place] Goals Time Frame: Feb 26, 2021 Roll Left & Right (QC): 6 Sit to Lying (QC): 4 (SBA) Lying-Sitting on Side/Bed(QC): 4 (SBA) Sit to Stand (QC): 4 (SBA) Chair/Clh-ay-Cqaju Xfer(QC): 4 (SBA) Toilet Transfer (QC): 4 (SBA) Car Transfer (QC): 4 (SBA) Does the Patient Walk: Yes Walk 10 feet (QC): 4 (SBA) Walk 50ft with 2 Turns (QC): 4 (SBA) Walk 150 ft (QC): 88 Walking 10ft on Uneven Surface: 4 (SBA) 1 Step (curb) (QC): 4 (CGA) 4 Steps (QC): 88 12 Steps (QC): 88 Picking up an Object (QC): 88 Wheel 50 feet with 2 turns (QC: 6 Wheel 150 feet: 6 PT Plan Problem List Problem List: Activity Tolerance, Functional Strength, Safety, Balance, Gait, Transfer, Bed Mobility, ROM Treatment/Plan Treatment Plan: Continue Plan of Care Treatment Plan: Bed Mobility, Education, Functional Activity Molly, Functional Strength, Group Therapy, Gait, Safety, Therapeutic Exercise, Transfers Treatment Duration: Feb 26, 2021 Frequency: At least 5 of 7 days/Wk (IRF) Estimated Hrs Per Day: 1.5 hours per day Patient and/or Family Agrees t: Yes Safety Risks/Education Patient Education: Gait Training, Transfer Techniques, Reviewed Precautions, Correct Positioning, W/C Management, Safety Issues Teaching Recipient: Patient Teaching Methods: Demonstration, Discussion Response to Teaching: Reinforcement Needed Discharge Recommendations Plan Patient will perform bed mobility and transfer training, balance and endurance training, functional strengthening, stair training, gait training, and education, to improve functional mobility and independence at home. Therapy Discharge Recommendati: Scheduled Assistance, Home & Family, Post Acute PT Time/GCodes Time In: 0 Time Out: 1550 Total Billed Treatment Time: 90 Total Billed Treatment 1 visit EVM 10' FA 80' PT eval from [id number], OT eval from [id number], co-treat from [id number] CHRISTIE HERRERA PT Feb 05, 2021 15:45
[2021-02-05] MEDS ORDERED: CATHETER FLUSH 10 ML SYR IV PRN (17:45)
[2021-02-05] MEDS ORDERED: ONDANSETRON 4 MG/2 ML (SDV) Z0FRAN IVP PRN (17:45)
[2021-02-05] MEDS ORDERED: guaiFENesin (MUCINEX) 600 MG TAB PO PRN (17:45)
[2021-02-05] MEDS ORDERED: SENNA W/DOCUSATE (SENOKOT S) TABLET PO PRN (17:45)
[2021-02-05] MEDS ORDERED: ENOXAPARIN 40 MG/0.4 ML (LOVENOX) SYR SQ SCH (17:45)
[2021-02-05] MEDS: oxyCODONE/APAP 5/325MG (PERCOCET 5) TABLET PO PRN ×2 (18:48→22:55)
[2021-02-05] MEDS: RT-ALBUTEROL/IPRATROPIUM 3 ML (DUONEB) VIAL INH SCH (19:07)
[2021-02-05 20:00] VITALS: BP 145/65
[2021-02-05] MEDS: DOCUSATE SODIUM 100 MG (COLACE) CAP PO SCH (20:08)
[2021-02-05] MEDS: meTOprolol TARTRATE 25 MG (LOPRESSOR) TABLET PO SCH (20:09)
[2021-02-05] MEDS: SENNA W/DOCUSATE (SENOKOT S) TABLET PO SCH (20:09)
[2021-02-05 20:15] VITALS: BP 110/58
[2021-02-05] MEDS ORDERED: polyethylene glycoL POWDER 17 GM (MIRALAX) PACK PO SCH ×2 (21:00)
--- NOTE | 2021-02-05 21:01 | PM&R Post Admission Assessment ---
PM&R HP Date of Visit: Feb 05, 2021 Time of Visit: 14:30 History of Present Illness Chief complaint: Recovery from left hip fracture History of present illness: This is an 80-year-old white male who has no past medical history who presented to the ER with left hip fracture after suffering a fall at home and remaining down for about an hour. He had an uncomplicated hospital course after repair on 02/01/2022 but did have an episode of new onset atrial fibrillation requiring ICU transfer and Cardizem drip with Dr. Roque managing. He did receive 2 units of blood considering his hemoglobin of 7.5. Anticoagulation will be discussed with cardiology regarding the dosing. Prior level of functioning was independent without the use of assistive devices. Past Ovfrlog-Rxiyzc-Zclmlv Hx Past Med/Social Hx: Reviewed Nursing Past Med/Soc Hx, Reviewed and Corrections made Patient Social History Marrital Status: Employed/Student: retired Alcohol Use: Occasionally Uses Alcohol Beverage of Choice: Wine Smoking Status: Former Smoker Former Smoker, Quit: Jan 31, 1999 2nd Hand Smoke Exposure: No Recent Hopitalizations: Yes Past Medical History Surgeries: Orthopedic (Hip fracture repair 02/01/2021) Currently Using CPAP: No Currently Using BIPAP: No Cardiac: Atrial Fibrillation (New onset 02/04/2021) Reproductive: No History of Blood Disorders: No Prior Level of Function Bed Mobility: 6 Transfers: 6 Gait: 6 Stairs: 6 Indoor Mobility (Ambulation): Independent Stairs: Independent Self Care: Independent Functional Cognition: Unknown 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 Drive Self: Yes Current Level of Fuctioning Roll Left to Right: 3 Sit to Lyin Lying to Sitting/Side of Bed: 3 Sit to Stand: 3 Chair/Acb-zj-Gbwev Xfer: 3 Car Transfer: 3 Does the Patient Walk: Yes Mode of Locomotion: Both Anticipated Mode of Locomotion: Both Walk 10 feet: 88 Walk 50 ft with 2 Turns: 88 Walk 150 ft: 88 Walking 10ft on uneven surface: 88 Gait Assistive Device: Parallel Bars Does the Pt Use a Wheelchair: Yes Wheelchair Distance: 150' Wheel 50 ft with 2 turns: 3 Wheel 150 ft: 3 Type of Wheelchair: Manual 1 Step (curb): 88 4 Steps: 88 12 Steps: 88 Picking up an Object: 88 Eatin (Per pt) Oral Hygiene: 88 Shower/Bathe Self: 2 (Pt. requires assistance to wash bilateral feet and dino area in stance. Pt. able to wash all other parts seated with cues.) Upper Body Dressin Lower Body Dressin (Per clinical judgement.) On/Off Footwear: 2 Toileting Hygiene: 88 PM&R Allergy/Meds/Data Review Allergies Coded Allergies: No Known Drug Allergies (Unverified , 01/23/12) Home Medications Scheduled Cholecalciferol (Vitamin D3) (Vitamin D3), 125 MCG PO DAILY, (Reported) Guaifenesin (Mucinex), 600 MG PO BID, (Reported) Ipratropium/Albuterol Sulfate (Iprat-Albut 0.5-3(2.5) mg/3 ml), 3 ML INH TID, (Reported) Discontinued Medications Levofloxacin (Levaquin Po), 250 MG PO DAILY, (Reported) Discontinued Reason: No Longer Taking Losartan Potassium (Cozaar), 100 MG PO DAILY, (Reported) Discontinued Reason: No Longer Taking Omeprazole (Prilosec), 40 MG PO DAILY, (Reported) Discontinued Reason: No Longer Taking Simvastatin (Simvastatin), 40 MG PO DAILY, (Reported) Discontinued Reason: No Longer Taking Current Medications Current Medications Reviewed Review of Systems Constitutional: see HPI, malaise, weakness EENTM: no symptoms reported Respiratory: dyspnea on exertion Cardiovascular: no symptoms reported Gastrointestinal: no symptoms reported Genitourinary: no symptoms reported Musculoskeletal: joint pain Skin: no symptoms reported Psychiatric/Neurological: No Symptoms Reported All Other Systems Reviewed Negative Unless Noted: Yes Physical Exam Physical Exam Vital Signs Vital Signs - First Documented 02/05/21 14:30 Temp 36.9 Pulse 87 Resp 18 B/P (MAP) 120/68 (85) Pulse Ox 92 O2 Delivery Nasal Cannula O2 Flow Rate 1.00 Capillary Refill : Height, Weight, BMI Height: 6'2.00" Weight: 186lbs. oz. [id number]; 23.39 BMI Method: General Appearance: No Apparent Distress, WD/WN, Chronically ill Eyes: Bilateral Eye Normal Inspection, Bilateral Eye PERRL HEENT: PERRL/EOMI, Normal ENT Inspection, Pharynx Normal Neck: Full Range of Motion, Normal Inspection, Non Tender, Supple, Carotid Bruit Respiratory: Chest Non Tender, Lungs Clear, Normal Breath Sounds, No Accessory Muscle Use, No Respiratory Distress Cardiovascular: Regular Rate, Rhythm, No Edema, No Gallop, No JVD, No Murmur, Normal Peripheral Pulses Gastrointestinal: Normal Bowel Sounds, No Organomegaly, No Pulsatile Mass, Non Tender, Soft Back: Normal Inspection, No CVA Tenderness, No Vertebral Tenderness Extremity: Normal Capillary Refill, Normal Inspection, Normal Range of Motion (Except left leg), Non Tender, No Calf Tenderness, No Pedal Edema Neurologic/Psychiatric: Alert, Oriented x3, No Motor/Sensory Deficits, Abnormal Gait, Depressed Affect Skin: Normal Color, Warm/Dry Lymphatic: No Adenopathy PM&R Medical Assessment & Plan REHAB/MEDICAL ASSESSMENT AND PLAN: REHAB IMPAIRMENT GROUP: Left hip fracture ETIOLOGIC DIAGNOSIS: Left hip fracture The comorbidities that impact the patients function and/or functional outcome by: New onset atrial fibrillation, postop anemia requiring transfusions, lives alone REHAB PLAN: The patient is being admitted to our comprehensive inpatient rehabilitation facility and can tolerate the intensity of service consisting of at least: 180 minutes of therapy a day, 5 out of 7 days a week Rehab treatment will consist of: PT and OT will focus on regaining function with left hip fracture repair and increase independence in ADLs in order to return home and independent living The patient/family has a good understanding of our discharge process and will benefit from an interdisciplinary inpatient rehabilitation program. The patient has potential to make improvement and is in need of at least two of the following multidisciplinary therapies including but not limited to physical, occupational, speech, and prosthetics and orthotics. Additionally the patient will need services from respiratory, nutritional services, wound care, psychology, etc. (Customize this to each patient). Given the patients complex condition and risk of further medical complications, rehabilitation services cannot be safely or effectively provided at a lower level of care such as a fdc facility. BARRIERS TO DISCHARGE: Lives alone ESTIMATED LOS: 10 days DISPOSITION: Home RELEVANT CHANGES SINCE PREADMISSION SCREENING: I have compared the patients medical and functional status at the time of the preadmission screening and there are: no changes PROGNOSIS: Good REHABILITATION GOALS: 1. PT and OT will focus on regaining function with left hip fracture repair and increase independence in ADLs in order to return home and independent living All the above goals were reviewed with the patient and he/she is in agreement. By signing this document, I acknowledge that I have personally performed a full physical examination on this patient within 24 hours of admission to this inpatient rehabilitation facility and have determined the patient to be able to tolerate the above course of treatment at an intensive level for a reasonable period of time. I will be completing a detailed individualized Plan of Care for this patient by day #4 of the patients stay based upon the Preadmission Screen, the Post-Admission Evaluation, and the therapy evaluations. Admission Dx/Comorbidities: (1) Intertrochanteric fracture of left femur Status: Acute ICD Codes: S72.142A - Displaced intertrochanteric fracture of left femur, initial encounter for closed fracture (2) Atrial fibrillation with RVR Status: Acute ICD Codes: I48.91 - Unspecified atrial fibrillation (3) Postoperative anemia Status: Acute ICD Codes: D64.9 - Anemia, unspecified (4) MERVIN (acute kidney injury) Status: Acute ICD Codes: N17.9 - Acute kidney failure, unspecified Assessment/Plan Assessment and Plan Assess & Plan/Chief Complaint Assessment: Displaced and comminuted intertrochanteric fracture of the left femur status post uncomplicated repair 02/01/21 New onset episode of atrial fibrillation with rapid ventricular rate requiring ICU admission and Cardizem drip Postop anemia from acute blood loss requiring 2 units of blood Plan: Monitor Vick Mcrae cardiology Inpatient rehab protocol Monitor hemoglobin Anticoagulation per cardiology APRYL KAMINSKI DO Feb 05, 2021 21:01
[2021-02-06] MEDS: oxyCODONE/APAP 5/325MG (PERCOCET 5) TABLET PO PRN ×2 (03:51→08:53)
[2021-02-06 05:05] LABS: BASOPHILS % (AUTO) 0 % (0-10); EOSINOPHILS # (AUTO) 0.2 10^3/uL (0.0-0.3); EOSINOPHILS % (AUTO) 2 % (0-10); HEMATOCRIT 25 % (40-54); HEMOGLOBIN 8.4 g/dL (13.3-17.7); LYMPHOCYTES # (AUTO) 1.4 10^3/uL (1.0-4.0); LYMPHOCYTES % (AUTO) 14 % (12-44); MEAN CORPUSCULAR HEMOGLOBIN 32 pg (25-34); MEAN CORPUSCULAR HGB CONC 34 g/dL (32-36); MEAN CORPUSCULAR VOLUME 97 fL (80-99); MEAN PLATELET VOLUME 10.2 fL (9.0-12.2); MONOCYTES # (AUTO) 1.3 10^3/uL (0.0-1.0); MONOCYTES % (AUTO) 14 % (0-12); NEUTROPHILS # (AUTO) 6.2 10^3/uL (1.8-7.8); NEUTROPHILS % (AUTO) 66 % (42-75); PLATELET COUNT 213 10^3/uL (130-400); WHITE BLOOD COUNT 9.4 10^3/uL (4.3-11.0)
[2021-02-06 05:20] LABS: BILIRUBIN,TOTAL 1.3 MG/DL (0.1-1.0); CALCIUM 8.2 MG/DL (8.5-10.1); CREATININE SERUM 1.22 MG/DL (0.60-1.30); POTASSIUM 4.1 MMOL/L (3.6-5.0); TOTAL PROTEIN 5.7 GM/DL (6.4-8.2)
[2021-02-06 07:40] VITALS: BP 106/57
[2021-02-06] MEDS: RT-ALBUTEROL/IPRATROPIUM 3 ML (DUONEB) VIAL INH SCH (08:19)
--- NOTE | 2021-02-06 08:32 | Cardiology Progress Note ---
Subjective Time Seen by Provider: 08:29 Subjective/Events-last exam Patient is sitting up in bed, no new complaints. Denies any chest pain or pal pitations. C/o left hip pain. Review of Systems General: No Chills, No Night Sweats, No Fatigue, No Malaise, No Appetite, No Other HEENT: No Head Aches, No Visual Changes, No Eye Pain, No Ear Pain, No Dysphasia, No Sinus Congestion, No Post Nasal Drip, No Sore Throat, No Other Pulmonary: No Dyspnea, No Cough, No Pleuritic Chest Pain, No Other Cardiovascular: No: Chest Pain, Palpitations, Orthopnea, Paroxysmal Noc. Dyspnea, Edema, Lt Headedness, Other Objective-Cardiology Exam Last Set of Vital Signs Vital Signs 02/06/21 02/06/21 02/06/21 07:40 09:30 11:09 Temp 36.0 Pulse 99 Resp 18 B/P (MAP) 94/60 (71) Pulse Ox 93 O2 Delivery Room Air O2 Flow Rate 1.00 Capillary Refill : General: Alert, Oriented X3, Cooperative HEENT: Atraumatic, PERRLA Neck: Supple, No JVD, No Thyromegaly Lungs: Clear to Auscultation, Normal Air Movement Heart: Normal S1, Normal S2, No Murmurs, Other (Irregular rhythm) Abdomen: Normal Bowel Sounds, Soft, No Tenderness, No Hepatosplenomegaly, No Masses Skin: No Rashes, No Significant Lesion Neuro: Normal Speech, Cranial Nerves 3-12 NL Psych/Mental Status: Mental Status NL, Mood NL Results Lab Laboratory Tests 02/06/21 04:53 A/P-Cardiology Admission Diagnosis Post-op afib left hip fracture Anemia Renal insufficiency Assessment/Plan Transient post-op atrial fibrillation with rapid ventricular response, controlled by diltiazem and converted back spontaneously to sinus rhythm. Borderline hypotension, patient went back to atrial fibrillation today, I att empted to achieve adequate control with bolus of amiodarone, still borderline tachycardic, will transfer to ICU and start amiodarone drip, monitor tolerance and response. [id number] score of 2, yearly risk of stroke without oral anticoagulation is 2.2%. Patient will be started on Eliquis and will monitor as an outpatient. Anemia, probably will worsen when patient received full dose anticoagulation, s/p transfusion, continue to monitor H/H Left hip fracture, underwent surgical repair with Dr. Morrison on February 01, 2021, receiving physical therapy Renal insufficiency, monitor renal function. Palpitations secondary to tachycardia, improved. DVT prophylaxis with lovenox. Supervisory-Addendum Brief Supervisory Addendum Participated in pt care: history, MDM, physical Personally performed: exam, history, MDM Care discussed with: NORIS Notes: Patient was seen and evaluated with Kate, examination performed, management plan was discussed, agree with the current scribed note, I made few changes to the note using Italic font Patient was seen at bedside, we transfer him to the [facility] and gave him amiodarone bolus, Heart rate was around 100, later on his heart rate went up to 150 I will start him on amiodarone drip, cannot tolerate aggressive beta-blockers or calcium channel blockers due to borderline hypotension I am starting him on oral anticoagulation to reduce the risk of stroke. Monitor H&H closely KATE GAYTAN Feb 06, 2021 8:32 am JENNIFER RIVER MD Feb 06, 2021 11:49 am
--- NOTE | 2021-02-06 08:49 | Progress Note ---
Standard Progress Note Progress Notes/Assess & Plan Date Seen by a Provider: Feb 06, 2021 Time Seen by a Provider: 08:47 Progress/Assessment & Plan feeling better Vital Signs Date Time Temp Pulse Resp B/P (MAP) Pulse Ox O2 Delivery O2 Flow Rate FiO2 02/06/21 08:19 93 Room Air 02/06/21 07:40 36.0 80 18 106/57 (73) 91 Nasal Cannula 0.50 02/06/21 01:00 74 02/05/21 20:30 94 Nasal Cannula 1.00 02/05/21 20:15 36.6 93 14 110/58 (75) 94 Nasal Cannula 0.50 02/05/21 20:00 36.6 93 14 145/65 (91) 94 Nasal Cannula 0.50 02/05/21 19:10 91 Nasal Cannula 1.00 02/05/21 19:00 89 02/05/21 16:53 92 Nasal Cannula 1.00 02/05/21 15:26 91 Nasal Cannula 3.00 02/05/21 14:30 36.9 87 18 120/68 (85) 92 Nasal Cannula 1.00 Laboratory Tests Test 02/06/21 04:53 Range/Units White Blood Count 9.4 4.3-11.0 10^3/uL Red Blood Count 2.59 L 4.30-5.52 10^6/uL Hemoglobin 8.4 L 13.3-17.7 g/dL Hematocrit 25 L 40-54 % Mean Corpuscular Volume 97 80-99 fL Mean Corpuscular Hemoglobin 32 25-34 pg Mean Corpuscular Hemoglobin Concent 34 32-36 g/dL Red Cell Distribution Width 14.8 H 10.0-14.5 % Platelet Count 213 130-400 10^3/uL Mean Platelet Volume 10.2 9.0-12.2 fL Immature Granulocyte % (Auto) 3 % Neutrophils (%) (Auto) 66 42-75 % Lymphocytes (%) (Auto) 14 12-44 % Monocytes (%) (Auto) 14 H 0-12 % Eosinophils (%) (Auto) 2 0-10 % Basophils (%) (Auto) 0 0-10 % Neutrophils # (Auto) 6.2 1.8-7.8 10^3/uL Lymphocytes # (Auto) 1.4 1.0-4.0 10^3/uL Monocytes # (Auto) 1.3 H 0.0-1.0 10^3/uL Eosinophils # (Auto) 0.2 0.0-0.3 10^3/uL Basophils # (Auto) 0.0 0.0-0.1 10^3/uL Immature Granulocyte # (Auto) 0.3 H 0.0-0.1 10^3/uL Sodium Level 137 135-145 MMOL/L Potassium Level 4.1 3.6-5.0 MMOL/L Chloride Level 102 98-107 MMOL/L Carbon Dioxide Level 26 21-32 MMOL/L Anion Gap 9 5-14 MMOL/L Blood Urea Nitrogen 22 H 7-18 MG/DL Creatinine 1.22 0.60-1.30 MG/DL Estimat Glomerular Filtration Rate 57 BUN/Creatinine Ratio 18 Glucose Level 116 H 70-105 MG/DL Calcium Level 8.2 L 8.5-10.1 MG/DL Corrected Calcium 9.0 8.5-10.1 MG/DL Total Bilirubin 1.3 H 0.1-1.0 MG/DL Aspartate Amino Transf (AST/SGOT) 51 H 5-34 U/L Alanine Aminotransferase (ALT/SGPT) 35 0-55 U/L Alkaline Phosphatase 75 40-136 U/L Total Protein 5.7 L 6.4-8.2 GM/DL Albumin 3.0 L 3.2-4.5 GM/DL L hip incision clean and dry. No calf tenderness. s/p L hip IM aarti TTWB HUMERA BERNAL MD Feb 06, 2021 08:49
[2021-02-06] MEDS: meTOprolol TARTRATE 25 MG (LOPRESSOR) TABLET PO SCH (08:50)
[2021-02-06] MEDS: SENNA W/DOCUSATE (SENOKOT S) TABLET PO SCH (08:50)
[2021-02-06] MEDS: DOCUSATE SODIUM 100 MG (COLACE) CAP PO SCH (08:51)
[2021-02-06] MEDS ORDERED: ASPIRIN E.C. 81 MG (ECOTRIN) TAB PO SCH (09:00)
[2021-02-06 09:30] VITALS: BP 128/60
--- NOTE | 2021-02-06 09:45 | PM&R Progress Note ---
Subjective HPI/CC On Admission Date Seen by Provider: Feb 06, 2021 Time Seen by Provider: 10:00 Subjective/Events-last exam Hospital course Pt had a brief hospital course, he was admitted due to hip fracture recovery had new onset A-Fib with RVR managed by Dr. Roque Pt was transferred to rehab Pt had RVR once again and recurring Amiodarone drip so pt was discharged to ICU Hemoglobin was stable at 8.4, rest of pt's vitals were stable He hasn't had a bowel movement since 01/31/21 Review of Systems Cardiovascular: Palpitations Objective Exam Vital Signs Vital Signs Date Time Temp Pulse Resp B/P (MAP) Pulse Ox O2 Delivery O2 Flow Rate FiO2 02/06/21 12:26 36.0 99 18 94/60 93 Room Air 1.00 Capillary Refill : General Appearance: No Apparent Distress, WD/WN, Chronically ill HEENT: PERRL/EOMI, Normal ENT Inspection, Pharynx Normal Neck: Full Range of Motion, Normal Inspection, Non Tender, Supple, Carotid Bruit Respiratory: Chest Non Tender, Lungs Clear, Normal Breath Sounds, No Accessory Muscle Use, No Respiratory Distress Cardiovascular: No Edema, No Gallop, No JVD, No Murmur, Normal Peripheral Pulses, Irregularly Irregular, Tachycardia Gastrointestinal: Normal Bowel Sounds, No Organomegaly, No Pulsatile Mass, Non Tender, Soft Back: Normal Inspection, No CVA Tenderness, No Vertebral Tenderness Extremity: Normal Capillary Refill, Normal Inspection, Normal Range of Motion (Except left leg), Non Tender, No Calf Tenderness, No Pedal Edema Neurologic/Psychiatric: Alert, Oriented x3, No Motor/Sensory Deficits, Abnormal Gait, Depressed Affect Skin: Normal Color, Warm/Dry Lymphatic: No Adenopathy Results/Procedures Lab Patient resulted labs reviewed. FIM Transfers Therapy Code Descriptions/Definitions Functional [place] Measure: 0=Not Assessed/NA 4=Minimal Assistance 1=Total Assistance 5=Supervision or Setup 2=Maximal Assistance 6=Modified [place] 3=Moderate Assistance 7=Complete IndependenceSCALE: Activities may be completed with or without assistive devices. 4-Iwqcqiokdt-vjvxzik completes the activity by him/herself with no assistance from a helper. 5-Set-up or Clean-up Assistance-helper sets up or cleans up; patient completes activity. [place] assists only prior to or following the activity. 4-Supervision or Touching Assistance-helper provides verbal cues and/or touching/steadying and/or contact guard assistance as patient completes activity. Assistance may be provided throughout the activity or intermittently. 3-Partial/Moderate Assistance-helper does LESS THAN HALF the effort. [place] lifts, holds or supports trunk or limbs, but provides less than half the effort. 2-Substantial/Maximal Assistance-helper does MORE THAN HALF the effort. [place] lifts or holds trunk or limbs and provides more than half the effort. 3-Vhxnsdair-zmidxr does ALL the effort. Patient does none of the effort to complete the activity. Or, the assistance of 2 or more helpers is required for the patient to complete the activity. If activity was not attempted, code reason: 7-Patient Refused. 9-Not Applicable-not attempted and the patient did not perform the activity before the current illness, exacerbation or injury. 10-Not Attempted due to Environmental Limitations-(lack of equipment, weather restraints, etc.). 88-Not Attempted due to Medical Conditions or Safety Concerns. Roll Left to Right (QC): 3 Sit to Lying (QC): 3 Sit to Stand (QC): 3 Chair/Wer-vu-Bjots Xfer(QC): 3 Car Transfer (QC): 3 Gait Training Does the Patient Walk?: Yes Walk 10 feet (QC): 88 Walk 50 ft with 2 Turns(QC): 88 Walk 150 ft (QC): 88 Walking 10ft/uneven surface-QC: 88 Gait Assistive Device: Parallel Bars Wheelchair Training Does the Pt Use a Wheelchair?: Yes Distance: 150' Wheel 50 ft with 2 turns (QC): 3 Wheel 150 ft (QC): 3 Type of Wheelchair: Manual Stair Training 1 Step (curb) (QC): 88 4 Steps (QC): 88 12 Steps (QC): 88 Balance Picking up an Object (QC): 88 ADL-Treatment Eating (QC): 4 (Per pt) Oral Hygiene (QC): 88 Shower/Bathe Self (QC): 2 (Pt. requires assistance to wash bilateral feet and dino area in stance. Pt. able to wash all other parts seated with cues.) Upper Body Dressing (QC): 88 Lower Body Dressing (QC): 2 (Per clinical judgement.) On/Off Footwear (QC): 2 Toileting Hygiene (QC): 88 Assessment/Plan Assessment and Plan Assess & Plan/Chief Complaint Assessment: Displaced and comminuted intertrochanteric fracture of the left femur status post uncomplicated repair 02/01/21 New onset episode of atrial fibrillation with rapid ventricular rate requiring ICU admission and Cardizem drip Postop anemia from acute blood loss requiring 2 units of blood Plan: Monitor Vick Mcrae cardiology Inpatient rehab protocol Monitor hemoglobin Anticoagulation per cardiology 02/06/2021: Transfer to the ICU (1) Intertrochanteric fracture of left femur Status: Acute (2) Atrial fibrillation with RVR Status: Acute (3) Postoperative anemia Status: Acute (4) MERVIN (acute kidney injury) Status: Acute APRYL KAMINSKI DO Feb 06, 2021 09:45
--- NOTE | 2021-02-06 10:07 | Occ Therapy Progress Note ---
Therapy Progress Note Nursing requests that therapy hold pt. at this time due to high heart rate. Will continue to monitor and treat when medically ready. [id number] JOCELYNE MADRIGAL OT Feb 06, 2021 10:07
--- NOTE | 2021-02-06 10:19 | Physical Therapy Daily Note ---
PT Daily Note-Current Transfers SCALE: Activities may be completed with or without assistive devices. 7-Qrbupejvxi-hcmlrbu completes the activity by him/herself with no assistance from a helper. 5-Set-up or Clean-up Assistance-helper sets up or cleans up; patient completes activity. [place] assists only prior to or following the activity. 4-Supervision or Touching Assistance-helper provides verbal cues and/or touching/steadying and/or contact guard assistance as patient completes activity. Assistance may be provided throughout the activity or intermittently. 3-Partial/Moderate Assistance-helper does LESS THAN HALF the effort. [place] lifts, holds or supports trunk or limbs, but provides less than half the effort. 2-Substantial/Maximal Assistance-helper does MORE THAN HALF the effort. [place] lifts or holds trunk or limbs and provides more than half the effort. 9-Jschkpvla-knybhr does ALL the effort. Patient does none of the effort to complete the activity. Or, the assistance of 2 or more helpers is required for the patient to complete the activity. If activity was not attempted, code reason: 7-Patient Refused. 9-Not Applicable-not attempted and the patient did not perform the activity before the current illness, exacerbation or injury. 10-Not Attempted due to Environmental Limitations-(lack of equipment, weather restraints, etc.). 88-Not Attempted due to Medical Conditions or Safety Concerns. Weight Bearing Left Lower Extremity: Left Touch Toe Bearing Assessment Current Status: Hold Per Dr/Nursing nurse advises no Rx today, HOLD as pt. has HR 155 and Afib PT Short Term Goals Short Term Goals Time Frame: Feb 12, 2021 Roll Left & Right: 4 Sit to lyin Lying to sitting on side of be: 3 Sit to stand: 4 Chair/fev-eu-lkzqu transfer: 4 Walk 10 feet: 4 PT Director Emergency Department Goals Skilled Nursing Goals PT Director Emergency Department Goals Time Frame: Feb 26, 2021 Roll Left & Right (QC): 6 Sit to Lying (QC): 4 (SBA) Lying-Sitting on Side/Bed(QC): 4 (SBA) Sit to Stand (QC): 4 (SBA) Chair/Yol-sl-Bqtjy Xfer(QC): 4 (SBA) Toilet Transfer (QC): 4 (SBA) Car Transfer (QC): 4 (SBA) Does the Patient Walk: Yes Walk 10 feet (QC): 4 (SBA) Walk 50ft with 2 Turns (QC): 4 (SBA) Walk 150 ft (QC): 88 Walking 10ft on Uneven Surface: 4 (SBA) 1 Step (curb) (QC): 4 (CGA) 4 Steps (QC): 88 12 Steps (QC): 88 Picking up an Object (QC): 88 Wheel 50 feet with 2 turns (QC: 6 Wheel 150 feet: 6 PT Plan Treatment/Plan Treatment Plan: Continue Plan of Care Treatment Plan: Bed Mobility, Education, Functional Activity Molly, Functional Strength, Group Therapy, Gait, Safety, Therapeutic Exercise, Transfers Treatment Duration: Feb 26, 2021 Frequency: At least 5 of 7 days/Wk (IRF) Estimated Hrs Per Day: 1.5 hours per day Patient and/or Family Agrees t: Yes Time/GCodes Time In: 1019 Time Out: 1019 Total Billed Treatment Time: 0 Total Billed Treatment 1,No Rx, no Chg SHYANNE HICKS LEATHER BELT LOOP CUTTER Feb 06, 2021 10:19
[2021-02-06] MEDS ORDERED: APIXABAN 5 MG (ELIQUIS) TABLET PO SCH (10:30)
[2021-02-06] MEDS ORDERED: AMIODARONE FOR BOLUS 150 MG in D5W 100 ML IVPB 100 ML IV ONE (10:30)
[2021-02-06] MEDS ORDERED: AMIODARONE 200 MG (CORDARONE) TAB PO SCH (10:30)
[2021-02-06 11:09] VITALS: BP 94/60
--- NOTE | 2021-02-06 11:58 | Occupational Ther Daily Note ---
OT Current Status-Daily Note Subjective Pt alert, lying in bed. Co-treat with PT due to irregular heartbeat/Afib and decreased activity tolerance. Pt off hold at beginning of treatment then staff came in to report that pt's heart rate at 175. Nrsg in room with heart medicine then reported that pt going to ICU due to increased heart rate and Afib. Mental Status/Objective Patient Orientation: Person, Place, Time, Situation Attachments: IV, Telemetry ADL-Treatment Therapy Code Descriptions/Definitions Functional [place] Measure: 0=Not Assessed/NA 4=Minimal Assistance 1=Total Assistance 5=Supervision or Setup 2=Maximal Assistance 6=Modified [place] 3=Moderate Assistance 7=Complete IndependenceSCALE: Activities may be completed with or without assistive devices. 5-Qcfuiankxi-ykzguzl completes the activity by him/herself with no assistance from a helper. 5-Set-up or Clean-up Assistance-helper sets up or cleans up; patient completes activity. [place] assists only prior to or following the activity. 4-Supervision or Touching Assistance-helper provides verbal cues and/or touching/steadying and/or contact guard assistance as patient completes activity. Assistance may be provided throughout the activity or intermittently. 3-Partial/Moderate Assistance-helper does LESS THAN HALF the effort. [place] lif ts, holds or supports trunk or limbs, but provides less than half the effort. 2-Substantial/Maximal Assistance-helper does MORE THAN HALF the effort. [place] lifts or holds trunk or limbs and provides more than half the effort. 7-Ldqjoevdc-mojzbd does ALL the effort. Patient does none of the effort to complete the activity. Or, the assistance of 2 or more helpers is required for the patient to complete the activity. If activity was not attempted, code reason: 7-Patient Refused. 9-Not Applicable-not attempted and the patient did not perform the activity before the current illness, exacerbation or injury. 10-Not Attempted due to Environmental Limitations-(lack of equipment, weather restraints, etc.). 88-Not Attempted due to Medical Conditions or Safety Concerns. Other Treatment Pt anxious about urinating. PT focusing on mobility and OT focusing on ADLs. Pt able to complete supine <--> EOB min A. Pt required min A to place urinal then was able to hold it in place. Assist to empty urinal. Pt sat EOB independently while manipulating urinal. Pt assisted back into supine position and urinal placed. After therapy, pt lying in bed with call light/phone in reach. All needs met in room. Pt to transfer to ICU. OT Short Term Goals Short Term Goals Time Frame: Feb 12, 2021 Eatin Oral hygiene: 4 Toileting hygiene: 3 Shower/bathe self: 3 Upper body dressin Lower body dressin Putting on/taking off footwear: 3 OT Gauge And Weigh Machine Operator Goals Gauge And Weigh Machine Operator Goals Time Frame: Feb 19, 2021 Eating (QC): 6 Oral Hygiene (QC): 6 Toileting Hygiene (QC): 6 Shower/Bathe Self (QC): 4 Upper Body Dressing (QC): 6 Lower Body Dressing (QC): 6 On/Off Footwear (QC): 6 Additional Goals: 1-Demonstrate ADL Tasks, 2-Verbalize Understanding, 3- ImproveStrength/Molly 1=Demonstrate adherence to instructed precautions during ADL tasks. 2=Patient will verbalize/demonstrate understanding of assistive devices/modifications for ADL. 3=Patient will improve strength/tolerance for activity to enable patient to perform ADL's. OT Education/Plan Problem List/Assessment Assessment: Decreased Activ Tolerance Discharge Recommendations Plan/Recommendations: Continue POC Treatment Plan/Plan of Care Patient would benefit from OT for education, treatment and training to promote independence in ADL's, mobility, safety and/or upper extremity function for ADL's. Plan of Care: ADL Retraining, Functional Mobility, UE Funct Exercise/Act Treatment Duration: Feb 19, 2021 Frequency: At least 5 of 7 days/Wk (IRF) Estimated Hrs Per Day: 1.5 hours per day Agreement: Yes Rehab Potential: Good Time/GCodes Start Time: 11:30 Stop Time: 11:55 Total Time Billed (hr/min): 25 Billed Treatment Time 1 visit-FA 2 (25 min) LOREN SHANNON Feb 06, 2021 11:58
[2021-02-06] MEDS ORDERED: AMIODARONE INJECTION 450 MG in D5W IV SOLUTION (EXCEL) 250 ML IV SCH (12:00)
--- NOTE | 2021-02-06 12:02 | Physical Therapy Daily Note ---
PT Daily Note-Current Subjective Pt. had been on HOLD per nursing secondary to HR 155/ AFIB but was given a bolus of Amiodorine and was ok'd to participate in therapies at approx 1130. Pt. agrees to Rx but states he has got to get on BSC or find another way to urinate other than in bed as he cannot empty bladder properly mostly due to edematous scrotum. Pt. expressed some dissatisfaction stating "everything done here has some hold up or hitch". (see below...Rx interrupted by HR increased again to 174 , pt TRFd to ICU) Pain Location: No Pain Reported Mental Status Patient Orientation: Normal For Age Transfers SCALE: Activities may be completed with or without assistive devices. 0-Arjvmpvvgu-wgdylfm completes the activity by him/herself with no assistance from a helper. 5-Set-up or Clean-up Assistance-helper sets up or cleans up; patient completes activity. [place] assists only prior to or following the activity. 4-Supervision or Touching Assistance-helper provides verbal cues and/or touching/steadying and/or contact guard assistance as patient completes activity. Assistance may be provided throughout the activity or intermittently. 3-Partial/Moderate Assistance-helper does LESS THAN HALF the effort. [place] lifts, holds or supports trunk or limbs, but provides less than half the effort. 2-Substantial/Maximal Assistance-helper does MORE THAN HALF the effort. [place] lifts or holds trunk or limbs and provides more than half the effort. 6-Avriqluir-mguxnk does ALL the effort. Patient does none of the effort to complete the activity. Or, the assistance of 2 or more helpers is required for the patient to complete the activity. If activity was not attempted, code reason: 7-Patient Refused. 9-Not Applicable-not attempted and the patient did not perform the activity before the current illness, exacerbation or injury. 10-Not Attempted due to Environmental Limitations-(lack of equipment, weather restraints, etc.). 88-Not Attempted due to Medical Conditions or Safety Concerns. Roll Left & Right (QC): 4 Sit to Lying (QC): 3 Lying to Sitting/Side of Bed(Q: 3 pt. required mod assist LLE sup to sit and sit to sup. pt. sat EOB quite some time with hips to egde of bed, urinal in place attempting to empty his bladder. Pt. was partially successful at 100cc Weight Bearing Left Lower Extremity: Left Touch Toe Bearing Treatments pt. at EOB attempting to use urinal with nurse entering room to report increased HR at 174 and that pt. was TRFing to ICU for cardiac management. PT OT co Rx secondary to pt. level of dependence and declining medical status Assessment Current Status: Poor Progress pt. unable to tolerate therapies and participate this date secondary to cardiac issues PT Short Term Goals Short Term Goals Time Frame: Feb 12, 2021 Roll Left & Right: 4 Sit to lyin Lying to sitting on side of be: 3 Sit to stand: 4 Chair/qza-js-kbrev transfer: 4 Walk 10 feet: 4 PT Usp Goals Knowledge Engineer Goals PT Knowledge Engineer Goals Time Frame: Feb 26, 2021 Roll Left & Right (QC): 6 Sit to Lying (QC): 4 (SBA) Lying-Sitting on Side/Bed(QC): 4 (SBA) Sit to Stand (QC): 4 (SBA) Chair/Prs-bk-Aaqzn Xfer(QC): 4 (SBA) Toilet Transfer (QC): 4 (SBA) Car Transfer (QC): 4 (SBA) Does the Patient Walk: Yes Walk 10 feet (QC): 4 (SBA) Walk 50ft with 2 Turns (QC): 4 (SBA) Walk 150 ft (QC): 88 Walking 10ft on Uneven Surface: 4 (SBA) 1 Step (curb) (QC): 4 (CGA) 4 Steps (QC): 88 12 Steps (QC): 88 Picking up an Object (QC): 88 Wheel 50 feet with 2 turns (QC: 6 Wheel 150 feet: 6 PT Plan Treatment/Plan Treatment Plan: Discontinue PT Treatment Plan: Bed Mobility, Education, Functional Activity Molly, Functional Strength, Group Therapy, Gait, Safety, Therapeutic Exercise, Transfers Treatment Duration: Feb 26, 2021 Frequency: At least 5 of 7 days/Wk (IRF) Estimated Hrs Per Day: 1.5 hours per day Patient and/or Family Agrees t: Yes Safety Risks/Education Patient Education: Transfer Techniques, Correct Positioning Time/GCodes Time In: 1130 Time Out: 1155 Total Billed Treatment Time: 25 Total Billed Treatment 1,FA25m,(PT OT co Rx 25m) SHYANNE HICKS COMMERCIAL RETOUCHER Feb 06, 2021 12:02
[2021-02-06 12:26] VITALS: BP 94/60
--- NOTE | 2021-02-06 12:41 | Discharge Summary ---
Diagnosis/Chief Complaint Date of Admission Feb 05, 2021 at 14:12 Date of Discharge Discharge Diagnosis Assessment: Atrial fibrillation with rapid ventricular response requiring transfer to the ICU and discharged from inpatient rehab since less than 3 days of admission Displaced and comminuted intertrochanteric fracture of the left femur status post uncomplicated repair 02/01/21 New onset episode of atrial fibrillation with rapid ventricular rate requiring ICU admission and Cardizem drip Postop anemia from acute blood loss requiring 2 units of blood Plan: Monitor A. fib Appreciate cardiology Inpatient rehab protocol Monitor hemoglobin Anticoagulation per cardiology Discharge Summary Discharge Physical Examination Allergies: Coded Allergies: No Known Drug Allergies (Unverified , 01/23/12) Vitals & I&Os Vital Signs Date Time Temp Pulse Resp B/P (MAP) Pulse Ox O2 Delivery O2 Flow Rate FiO2 02/06/21 12:26 36.0 99 18 94/60 93 Room Air 1.00 General Appearance: Alert, Oriented X3, Cooperative Cardiovascular: Other (Tachycardic and irregular) Psych/Mental Status: Mental Status NL Hospital Course Was the Problem List Reviewed?: Yes Hospital course Pt had a brief hospital course, he was admitted due to hip fracture recovery had new onset A-Fib with RVR managed by Dr. Roque Pt was transferred to rehab Pt had RVR once again and recurring Amiodarone drip so pt was discharged to ICU Hemoglobin was stable at 8.4, rest of pt's vitals were stable He hasn't had a bowel movement since 01/31/21 Labs (last 24 hrs) Laboratory Tests 02/06/21 04:53: White Blood Count 9.4, Red Blood Count 2.59L, Hemoglobin 8.4L, Hematocrit 25L, Mean Corpuscular Volume 97, Mean Corpuscular Hemoglobin 32, Mean Corpuscular Hemoglobin Concent 34, Red Cell Distribution Width 14.8H, Platelet Count 213, Mean Platelet Volume 10.2, Immature Granulocyte % (Auto) 3, Neutrophils (%) (Auto) 66, Lymphocytes (%) (Auto) 14, Monocytes (%) (Auto) 14H, Eosinophils (%) (Auto) 2, Basophils (%) (Auto) 0, Neutrophils # (Auto) 6.2, Lymphocytes # (Auto) 1.4, Monocytes # (Auto) 1.3H, Eosinophils # (Auto) 0.2, Basophils # (Auto) 0.0, Immature Granulocyte # (Auto) 0.3H, Sodium Level 137, Potassium Level 4.1, Chloride Level 102, Carbon Dioxide Level 26, Anion Gap 9, Blood Urea Nitrogen 22H, Creatinine 1.22, Estimat Glomerular Filtration Rate 57, BUN/Creatinine Ratio 18, Glucose Level 116H, Calcium Level 8.2L, Corrected Calcium 9.0, Total Bilirubin 1.3H, Aspartate Amino Transf (AST/SGOT) 51H, Alanine Aminotransferase (ALT/SGPT) 35, Alkaline Phosphatase 75, Total Protein 5.7L, Albumin 3.0L Pending Labs Laboratory Tests 02/06/21 04:53: White Blood Count 9.4, Red Blood Count 2.59, Hemoglobin 8.4, Hematocrit 25, Mean Corpuscular Volume 97, Mean Corpuscular Hemoglobin 32, Mean Corpuscular Hemoglobin Concent 34, Red Cell Distribution Width 14.8, Platelet Count 213, Mean Platelet Volume 10.2, Immature Granulocyte % (Auto) 3, Neutrophils (%) (Auto) 66, Lymphocytes (%) (Auto) 14, Monocytes (%) (Auto) 14, Eosinophils (%) (Auto) 2, Basophils (%) (Auto) 0, Neutrophils # (Auto) 6.2, Lymphocytes # (Auto) 1.4, Monocytes # (Auto) 1.3, Eosinophils # (Auto) 0.2, Basophils # (Auto) 0.0, Immature Granulocyte # (Auto) 0.3, Sodium Level 137, Potassium Level 4.1, Chloride Level 102, Carbon Dioxide Level 26, Anion Gap 9, Blood Urea Nitrogen 22, Creatinine 1.22, Estimat Glomerular Filtration Rate 57, BUN/Creatinine Ratio 18, Glucose Level 116, Calcium Level 8.2, Corrected Calcium 9.0, Total Bilirubin 1.3, Aspartate Amino Transf (AST/SGOT) 51, Alanine Aminotransferase (ALT/SGPT) 35, Alkaline Phosphatase 75, Total Protein 5.7, Albumin 3.0 Discharge Home Medications: Active Scripts Active Reported Vitamin D3 (Cholecalciferol (Vitamin D3)) 125 Mcg Tablet 125 Mcg PO DAILY Mucinex (Guaifenesin) 600 Mg Tab.er.12h 600 Mg PO BID Iprat-Albut 0.5-3(2.5) mg/3 ml (Ipratropium/Albuterol Sulfate) 3 Ml Ampul.neb 3 Ml INH TID Instructions to patient/family Please see electronic discharge instructions given to patient. Diagnosis/Problems Diagnosis/Problems (1) Intertrochanteric fracture of left femur Status: Acute (2) Atrial fibrillation with RVR Status: Acute (3) Postoperative anemia Status: Acute (4) MERVIN (acute kidney injury) Status: Acute APRYL KAMINSKI DO Feb 06, 2021 12:41
--- NOTE | 2021-02-06 14:28 | Therapy Team Discharge Summary ---
Therapy Discharge Summary Discharge Recommendations Date of Discharge Feb 06, 2021 at 12:10 Physical Therapy This patient admitted to ARU post acute hospital stay due to femur fx. At admission, he was min assist with all bed mobility and transfers and able to ambulate 8 ft in // bars with min assist. Further treatment has been limited due to elevated heart rate. Pt was transferrred to ICU this date. Goals unmet. DC PT. Occupational Therapy Decreased Activ Tolerance PT Stationary Fireman Goals [facility] Goals PT Stationary Fireman Goals Time Frame: Feb 26, 2021 Roll Left to Right (QC): 6 Sit to Lying (QC): 4 (SBA) Lying-Sitting on Side/Bed(QC): 4 (SBA) Sit to Stand (QC): 4 (SBA) Chair/Qjk-nw-Gnsan Xfer(QC): 4 (SBA) Car Transfer (QC): 4 (SBA) Does the Patient Walk: Yes Walk 10 feet (QC): 4 (SBA) Walk 10ft-Uneven Surface(QC): 4 (SBA) Walk 50ft with 2 Turns (QC): 4 (SBA) Walk 150 ft (QC): 88 Wheel 50 feet with 2 turns (QC: 6 1 Step (curb) (QC): 4 (CGA) 4 Steps (QC): 88 12 Steps (QC): 88 Picking up an Object (QC): 88 No goals met due to short LOS OT Stationary Fireman Goals Stationary Fireman Goals Time Frame: Feb 19, 2021 Eating (QC): 6 Oral Hygiene (QC): 6 Shower/Bathe Self (QC): 4 Upper Body Dressing (QC): 6 Lower Body Dressing (QC): 6 On/Off Footwear (QC): 6 Toileting Hygiene (QC): 6 Toilet/Commode Transfer (QC): 4 (SBA) Additional Goals: 1-Demonstrate ADL Tasks, 2-Verbalize Understanding, 3- ImproveStrength/Molly 1=Demonstrate adherence to instructed precautions during ADL tasks. 2=Patient will verbalize/demonstrate understanding of assistive devices/modifications for ADL. 3=Patient will improve strength/tolerance for activity to enable patient to perform ADL's. LOREN QUIROZ PT Feb 06, 2021 14:27
--- NOTE | 2021-02-07 08:18 | Therapy Team Discharge Summary ---
Therapy Discharge Summary Discharge Recommendations Date of Discharge Feb 06, 2021 at 12:10 Therapy D/C Recommendations: 24 hr Supervision Occupational Therapy Pt. was evaluated on IRU to work on continued strength and independence with daily skills. Pt. transferred to ICU for ongoing care due to change in medical status. Goals not met at this time as they were not addressed due to change in medical status. Decreased Activ Tolerance, Decreased UE Strength, Dependent Transfers, Impaired Bed Mobility, Impaired Funct Balance, Impaired I ADL's, Impaired Self-Care Skills, Restricted Funct UE ROM PT Planning And Analysis Manager Goals Mcfp Goals PT Planning And Analysis Manager Goals Time Frame: Feb 26, 2021 Roll Left to Right (QC): 6 Sit to Lying (QC): 4 (SBA) Lying-Sitting on Side/Bed(QC): 4 (SBA) Sit to Stand (QC): 4 (SBA) Chair/Ehh-bh-Rbjcd Xfer(QC): 4 (SBA) Car Transfer (QC): 4 (SBA) Does the Patient Walk: Yes Walk 10 feet (QC): 4 (SBA) Walk 10ft-Uneven Surface(QC): 4 (SBA) Walk 50ft with 2 Turns (QC): 4 (SBA) Walk 150 ft (QC): 88 Wheel 50 feet with 2 turns (QC: 6 1 Step (curb) (QC): 4 (CGA) 4 Steps (QC): 88 12 Steps (QC): 88 Picking up an Object (QC): 88 OT Planning And Analysis Manager Goals Mcfp Goals Time Frame: Feb 19, 2021 Eating (QC): 6 (not met) Oral Hygiene (QC): 6 (not met) Shower/Bathe Self (QC): 4 (not met) Upper Body Dressing (QC): 6 (not met) Lower Body Dressing (QC): 6 (not met) On/Off Footwear (QC): 6 (not met) Toileting Hygiene (QC): 6 (not met) Toilet/Commode Transfer (QC): 4 (not met) Additional Goals: 1-Demonstrate ADL Tasks, 2-Verbalize Understanding, 3- ImproveStrength/Molly 1=Demonstrate adherence to instructed precautions during ADL tasks. 2=Patient will verbalize/demonstrate understanding of assistive devices/modifications for ADL. 3=Patient will improve strength/tolerance for activity to enable patient to perform ADL's. NACCARATO,JOCELYNE OT Feb 07, 2021 08:17
== END 2021-02-06 12:10 | disposition short-term general hospital (02) | DRG 560 ==
PROVIDERS: ADMIT Internal Medicine; ATTEND Internal Medicine
DX: S72.142D Displaced intertrochanteric fracture of left femur, subsequent encounter for closed fracture with routine healing (principal); D62 Acute posthemorrhagic anemia; I48.91 Unspecified atrial fibrillation; Z87.891 Personal history of nicotine dependence; W19.XXXD Unspecified fall, subsequent encounter; Y92.009 Unspecified place in unspecified non-institutional (private) residence as the place of occurrence of the external cause
CPT/HCPCS: 36415; 80053; 85025; 93005; 94640; 94760

== ENCOUNTER 2021-02-06 12:25 | Inpatient (IN) | payer MEDICARE ==
[~2021-02-06] VITALS: Ht 187.9 cm; Wt 90.0 kg
[~2021-02-06 12:25] MED LIST changes: -AMIODARONE FOR BOLUS 150 MG in D5W 100 ML IVPB 100 ML IV ONE; -NS IV 500 ML 500 ML IV SCH
[2021-02-06] MEDS ORDERED: guaiFENesin/CODEINE (ROBITUSSIN AC) 10ML UDC PO PRN (14:30)
[2021-02-06] MEDS ORDERED: LOPERAMIDE 2 MG (IMODIUM) TABLET PO PRN (14:30)
[2021-02-06] MEDS ORDERED: DOCUSATE SODIUM 100 MG (COLACE) CAP PO PRN (14:30)
[2021-02-06] MEDS ORDERED: AMIODARONE INJECTION 450 MG in D5W IV SOLUTION (EXCEL) 250 ML IV SCH (14:30)
[2021-02-06] MEDS ORDERED: diphenhydrAMINE 25 MG TAB (BENADRYL) PO PRN (14:30)
[2021-02-06] MEDS ORDERED: ENOXAPARIN 40 MG/0.4 ML (LOVENOX) SYR SQ SCH (14:30)
[2021-02-06] MEDS ORDERED: CALCIUM CARBONATE 500 MG (TUMS) TAB.CHEW PO PRN (14:30)
[2021-02-06] MEDS ORDERED: BISACODYL 10 MG SUPP (DULCOLAX) PR PRN ×2 (14:30)
[2021-02-06] MEDS ORDERED: fentaNYL INJ 100 MCG/2 ML AMP IVP PRN (14:30)
[2021-02-06] MEDS ORDERED: dilTIAZem DRIP PRE-MIX 125 ML IV SCH (14:30)
[2021-02-06] MEDS ORDERED: ALPRAZolam 0.25 MG (XANAX) TAB PO PRN (14:30)
[2021-02-06] MEDS ORDERED: guaiFENesin (MUCINEX) 600 MG TAB PO PRN ×2 (14:30)
[2021-02-06] MEDS ORDERED: CATHETER FLUSH 10 ML SYR IV PRN ×2 (14:30)
[2021-02-06] MEDS ORDERED: oxyCODONE/APAP 5/325MG (PERCOCET 5) TABLET PO PRN ×2 (14:30)
[2021-02-06] MEDS ORDERED: ACETAMINOPHEN 325 MG TABLET PO PRN ×2 (14:30)
[2021-02-06] MEDS ORDERED: SENNA W/DOCUSATE (SENOKOT S) TABLET PO PRN ×2 (14:30)
[2021-02-06] MEDS ORDERED: MELATONIN 3 MG TABLET PO PRN (14:30)
[2021-02-06] MEDS ORDERED: ONDANSETRON 4 MG/2 ML (SDV) Z0FRAN IVP PRN ×2 (14:30)
[2021-02-06] MEDS ORDERED: LACTULOSE SYRUP 10GM/15ML (ENULOSE) 30ML UDC PO PRN (14:30)
[2021-02-06] MEDS ORDERED: ONDANSETRON 4 MG (ZOFRAN) ORAL DISSOLVE TAB PO PRN (14:30)
--- NOTE | 2021-02-06 14:56 | Physical Therapy Progress Note ---
Therapy Progress Note Order for evaluation received. Patient came to ICU from rehab just this morning due to a-fib and RVR. Patient's HR at rest varies from 100bpm to 130bpm laying down at rest. Will hold for now and check in the morning. CHRISTIE HERRERA PT Feb 06, 2021 14:56
--- NOTE | 2021-02-06 15:01 | Occ Therapy Progress Note ---
Therapy Progress Note OT orders received for evaluation. Pt came to ICU from rehab earlier today due to Afib and RVR. Pt's HR at rest varies between 100-130bpm laying down. OT will hold for now and check on pt tomorrow. YULISSA SANCHEZ OT Feb 06, 2021 15:01
[2021-02-06] MEDS: HYDROcodone/APAP 5 MG/325 MG (LORTAB) TAB PO PRN ×2 (15:08→20:37)
[2021-02-06] MEDS: AMIODARONE INJECTION 450 MG in D5W IV SOLUTION (EXCEL) 250 ML IV SCH ×2 (15:10→22:12)
[2021-02-06] MEDS: polyethylene glycoL POWDER 17 GM (MIRALAX) PACK PO SCH (20:14)
[2021-02-06] MEDS: AMIODARONE 200 MG (CORDARONE) TAB PO SCH (20:16)
[2021-02-06] MEDS: APIXABAN 5 MG (ELIQUIS) TABLET PO SCH (20:16)
[2021-02-06] MEDS: meTOprolol TARTRATE 25 MG (LOPRESSOR) TABLET PO SCH (20:17)
[2021-02-06] MEDS: RT-ALBUTEROL/IPRATROPIUM 3 ML (DUONEB) VIAL INH SCH (20:49)
[2021-02-06] MEDS ORDERED: RT-ALBUTEROL/IPRATROPIUM 3 ML (DUONEB) VIAL INH SCH (21:00)
[2021-02-06] MEDS ORDERED: polyethylene glycoL POWDER 17 GM (MIRALAX) PACK PO SCH (21:00)
[2021-02-06] MEDS ORDERED: meTOprolol TARTRATE 25 MG (LOPRESSOR) TABLET PO SCH (21:00)
[2021-02-07 03:29] LABS: BASOPHILS % (AUTO) 0 % (0-10); EOSINOPHILS % (AUTO) 0 % (0-10); HEMATOCRIT 22 % (40-54); HEMOGLOBIN 7.4 g/dL (13.3-17.7); LYMPHOCYTES # (AUTO) 1.1 10^3/uL (1.0-4.0); LYMPHOCYTES % (AUTO) 8 % (12-44); MEAN CORPUSCULAR HEMOGLOBIN 32 pg (25-34); MEAN CORPUSCULAR HGB CONC 33 g/dL (32-36); MEAN CORPUSCULAR VOLUME 96 fL (80-99); MEAN PLATELET VOLUME 10.7 fL (9.0-12.2); MONOCYTES # (AUTO) 2.3 10^3/uL (0.0-1.0); MONOCYTES % (AUTO) 16 % (0-12); NEUTROPHILS % (AUTO) 73 % (42-75); PLATELET COUNT 249 10^3/uL (130-400); WHITE BLOOD COUNT 15.1 10^3/uL (4.3-11.0)
[2021-02-07 03:49] LABS: POTASSIUM 4.3 MMOL/L (3.6-5.0)
[2021-02-07 03:55] LABS: CREATININE SERUM 1.27 MG/DL (0.60-1.30); PHOSPHORUS 2.9 MG/DL (2.3-4.7)
[2021-02-07 03:57] LABS: MAGNESIUM 2.1 MG/DL (1.6-2.4)
[2021-02-07] MEDS: POTASSIUM CL 10MEQ/50ML IVPB 50 ML IV SCH (04:40)
[2021-02-07] MEDS: KCL 20 MEQ TAB (K-DUR) PO SCH (04:40)
[2021-02-07] MEDS: MAGNESIUM 1 GM/100 ML IVPB 100 ML IV SCH (04:40)
[2021-02-07] MEDS: RT-ALBUTEROL/IPRATROPIUM 3 ML (DUONEB) VIAL INH SCH ×3 (06:33→18:45)
--- NOTE | 2021-02-07 08:04 | Cardiology Progress Note ---
Subjective Date Seen by Provider: Feb 07, 2021 Time Seen by Provider: 08:02 Subjective/Events-last exam Patient was seen at bedside, converted to sinus rhythm on amiodarone drip, still receiving drip. No chest pain. Feeling better, still having some hip pain Review of Systems General: No Chills, No Night Sweats, No Fatigue, No Malaise, No Appetite, No Other HEENT: No Head Aches, No Visual Changes, No Eye Pain, No Ear Pain, No Dysphasia, No Sinus Congestion, No Post Nasal Drip, No Sore Throat, No Other Pulmonary: No Dyspnea, No Cough, No Pleuritic Chest Pain, No Other Cardiovascular: No: Chest Pain, Palpitations, Orthopnea, Paroxysmal Noc. Dyspnea, Edema, Lt Headedness, Other Objective-Cardiology Exam Last Set of Vital Signs Vital Signs 02/07/21 02/07/21 02/07/21 04:00 06:00 06:34 Temp 36.6 Pulse 68 Resp 17 B/P (MAP) 117/59 (78) Pulse Ox 98 O2 Delivery Nasal Cannula O2 Flow Rate 2.00 FiO2 90 Capillary Refill : I&O Intake and Output 02/07/21 00:00 Intake Total 850 ml Output Total 975 ml Balance -125 ml Intake Oral 850 ml Output Urine Total 975 ml Daily Weight Change No General: Alert, Oriented X3, Cooperative HEENT: Atraumatic, PERRLA Neck: Supple, No JVD, No Thyromegaly Lungs: Clear to Auscultation, Normal Air Movement Heart: Regular Rate, Normal S1, Normal S2, No Murmurs Abdomen: Normal Bowel Sounds, Soft, No Tenderness, No Hepatosplenomegaly, No Masses Extremities: No Clubbing, No Cyanosis, No Edema, Normal Pulses, No Tenderness/Swelling Skin: No Rashes, No Breakdown, No Significant Lesion Neuro: Normal Gait, Normal Speech, Strength at 5/5 X4 Ext, Normal Tone, Sensation Intact Psych/Mental Status: Mental Status NL, Mood NL Results Lab Laboratory Tests 02/07/21 02:55 A/P-Cardiology Admission Diagnosis Paroxysmal atrial fibrillation Palpitation Hip fracture Assessment/Plan Paroxysmal atrial fibrillation, multiple episode initially converted on Cardizem drip then return to atrial fibrillation with rapid ventricular response, started on Eliquis, given bolus of amiodarone without improvement, started on amiodarone bolus and oral loading dose, transferred to intensive care unit, tolerating med ication well and converted back to sinus rhythm. Continue on amiodarone for now. [id number] score of 2, yearly risk of stroke without oral anticoagulation is 2.2%. Patient will be started on Eliquis and will monitor as an outpatient. Anemia, probably will worsen when patient received full dose anticoagulation, s/p transfusion, continue to monitor H/H Left hip fracture, underwent surgical repair with Dr. Morrison on February 01, 2021, receiving physical therapy Renal insufficiency, monitor renal function. Palpitations secondary to tachycardia, improved. DVT prophylaxis with lovenox. JENNIFER RIVER MD Feb 07, 2021 08:04
[2021-02-07] MEDS ORDERED: ASPIRIN E.C. 81 MG (ECOTRIN) TAB PO SCH (09:00)
[2021-02-07] MEDS: meTOprolol TARTRATE 25 MG (LOPRESSOR) TABLET PO SCH ×2 (09:54→21:25)
[2021-02-07] MEDS: AMIODARONE 200 MG (CORDARONE) TAB PO SCH ×2 (09:54→20:15)
[2021-02-07] MEDS: APIXABAN 5 MG (ELIQUIS) TABLET PO SCH ×2 (09:54→20:15)
[2021-02-07] MEDS: ASPIRIN E.C. 81 MG (ECOTRIN) TAB PO SCH (09:54)
--- NOTE | 2021-02-07 10:12 | Physical Therapy Evaluation ---
PT Evaluation-General Medical Diagnosis Admission Date Feb 06, 2021 at 12:25 Medical Diagnosis: A fib with RVR Onset Date: Feb 05, 2021 Therapy Diagnosis Therapy Diagnosis: generalized weakness/debility Height/Weight Height (Feet): 6 Height (Inches): 2.00 Weight (Pounds): 186 Precautions Precautions/Isolations: Fall Prevention, Standard Precautions Weight Bear Status Right Lower Extremity: Right Full Weight Bearing Left Lower Extremity: Left Touch Toe Bearing Referral Physician: Mya Reason for Referral: Evaluation/Treatment Medical History Pertinent Medical History: Atrial Fib, Neuropathy Additional Medical History left hip fracture with repair Current History transfer to ICU from ARU due to A-fib Reviewed History: Yes Social History Home: Single Level Current Living Status: Alone Prior Prior Level of Function SCALE: Activities may be completed with or without assistive devices. 7-Ibmynlixco-yfocjcw completes the activity by him/herself with no assistance from a helper. 5-Set-up or Clean-up Assistance-helper sets up or cleans up; patient completes activity. [place] assists only prior to or following the activity. 4-Supervision or Touching Assistance-helper provides verbal cues and/or touching/steadying and/or contact guard assistance as patient completes activity. Assistance may be provided throughout the activity or intermittently. 3-Partial/Moderate Assistance-helper does LESS THAN HALF the effort. [place] lifts, holds or supports trunk or limbs, but provides less than half the effort. 2-Substantial/Maximal Assistance-helper does MORE THAN HALF the effort. [place] lifts or holds trunk or limbs and provides more than half the effort. 9-Gqxhitcob-nzlfdi does ALL the effort. Patient does none of the effort to complete the activity. Or, the assistance of 2 or more helpers is required for the patient to complete the activity. If activity was not attempted, code reason: 7-Patient Refused. 9-Not Applicable-not attempted and the patient did not perform the activity be fore the current illness, exacerbation or injury. 10-Not Attempted due to Environmental Limitations-(lack of equipment, weather restraints, etc.). 88-Not Attempted due to Medical Conditions or Safety Concerns. Bed Mobility: 6 Transfers (B,C,W/C): 6 Gait: 6 Stairs: 6 Indoor Mobility (Ambulation): Independent Stairs: Independent Prior Devices Use: None PT Evaluation-Current Subjective Patient reports increased fatigue. Agrees to PT. Pain Numeric Pain Scale: 3 Location: Left Location Body Site: Hip Pain Description: Ache Objective Patient Orientation: Normal For Age Attachments: Oxygen, IV ROM/Strength ROM Lower Extremities bilateral LE WFL (left slightly limited due to edema and pain) Strength Lower Extremities left LE 3-/5 grossly/right LE 3/5 grossly Integumentary/Posture Integumentary refer to nursing notes Bowel Incontinence: No Posture WFL Neuromuscular (Tone, Coordination, Reflexes) grossly intact Sensory Vision: Wears Glasses Hearing: Impaired Transfers Lying to Sitting/Side of Bed(Q: 4 (SBA) Sit to Stand (QC): 3 Chair/Lni-ry-Cljep Xfer(QC): 3 Gait Does the Patient Walk?: Yes Mode of Locomotion: Walk Anticipated Mode of Locomotion: Walk Walk 10 feet (QC): 3 Distance: 10' x 2 Gait Assistive Device: FWW Comments/Gait Description able to comply with TTWB left LE Wheelchair Training Does the Pt Use a Wheelchair?: No Balance Sitting Static: Normal Sitting Dynamic: Normal Standing Static: Fair Standing Dynamic: Fair Assessment/Needs Patient tolerates minimal activity on this date. Patient HR does fluctuate extremely during session. Patient has increase SOA with minimal activity with SAO2 remaining >90%. Rehab Potential: Fair PT Correction Goals Correction Goals PT Nursing Staff Development Coordinator Goals Time Frame: Feb 23, 2021 Roll Left & Right (QC): 5 Sit to Lying (QC): 5 Lying-Sitting on Side/Bed(QC): 5 Sit to Stand (QC): 5 Chair/Goe-zn-Fmrrb Xfer(QC): 5 Toilet Transfer (QC): 5 Does the Patient Walk: Yes Walk 10 feet (QC): 5 Walk 50ft with 2 Turns (QC): 5 Walk 150 ft (QC): 5 PT Plan Problem List Problem List: Activity Tolerance, Functional Strength, Safety, Balance, Gait, Transfer, Bed Mobility Treatment/Plan Treatment Plan: Continue Plan of Care Treatment Plan: Bed Mobility, Education, Functional Activity Molly, Functional Strength, Gait, Safety, Therapeutic Exercise, Transfers Treatment Duration: Feb 23, 2021 Frequency: 11 times per week Estimated Hrs Per Day: .5 hour per day Patient and/or Family Agrees t: Yes Time/GCodes Time In: 815 Time Out: 835 Total Billed Treatment Time: 20 Total Billed Treatment 1 visit EVModC 20 min SHABBIR HOWARD PT Feb 07, 2021 10:12
--- NOTE | 2021-02-07 10:37 | History & Physical ---
History of Present Illness HPI/Chief Complaint Chief complaint: Atrial fibrillation with rapid ventricular response History of present illness: This is an 81-year-old white male who was moved to the ICU urgently due to resistant atrial fibrillation with rapid ventricular response. He was placed on an amiodarone bolus and upon arrival to the ICU he converted back to normal sinus rhythm. He is currently on an amiodarone drip for the next hour and a half. Inpatient rehab will be submitted to his insurance again. Today [birth year] birthday. I do review all of his labs and vital signs and medications. Patient still has not had a bowel movement since 01/31/2021 prior to surgery so initiated Dulcolax suppository and then a soapsuds enema if needed. Source: patient Exam Limitations: no limitations Date Seen 02/07/21 Time Seen by a Provider: 10:30 Attending Physician Poornima Hoang DO PCP Mckinley Nichols MD Referring Physician Date of Admission Feb 06, 2021 at 12:25 Home Medications & Allergies Home Medications Reviewed patient Home Medication Reconciliation performed by pharmacy medication reconciliations airdrop systems technician and/or nursing. Patients Allergies have been reviewed. Allergies Allergies Coded Allergies No Known Drug Allergies (Unverified01/23/12) Past Zdmftjc-Mfhfvt-Fmvnmy Hx Past Med/Social Hx: Reviewed Nursing Past Med/Soc Hx, Reviewed and Corrections made Patient Social History Marrital Status: Employed/Student: retired Alcohol Use: Occasionally Uses Alcohol Beverage of Choice: Wine Smoking Status: Former Smoker Former Smoker, Quit: Jan 31, 1999 2nd Hand Smoke Exposure: No Recent Hopitalizations: Yes Past Medical History Surgeries: Orthopedic Currently Using CPAP: No Currently Using BIPAP: No Cardiac: Atrial Fibrillation Reproductive: No History of Blood Disorders: No Review of Systems Constitutional: see HPI Gastrointestinal: constipation Musculoskeletal: joint pain Physical Exam Physical Exam Vital Signs Vital Signs - First Documented 02/06/21 02/06/21 02/06/21 12:30 12:34 16:15 Temp 36.4 Pulse 92 Resp 14 B/P (MAP) 103/63 (76) Pulse Ox 91 O2 Delivery Nasal Cannula O2 Flow Rate 1.00 FiO2 94 Capillary Refill : Height, Weight, BMI Height: 6'2.00" Weight: 186lbs. oz. 81.794879nn; 23.42 BMI Method: General Appearance: No Apparent Distress, WD/WN Eyes: Bilateral Eye Normal Inspection, Bilateral Eye PERRL HEENT: PERRL/EOMI, Normal ENT Inspection, Pharynx Normal Neck: Full Range of Motion, Normal Inspection, Non Tender, Supple, Carotid Bruit Respiratory: Chest Non Tender, Lungs Clear, Normal Breath Sounds, No Accessory Muscle Use, No Respiratory Distress Cardiovascular: Regular Rate, Rhythm, No Edema, No Gallop, No JVD, No Murmur, Normal Peripheral Pulses Gastrointestinal: Normal Bowel Sounds, No Organomegaly, No Pulsatile Mass, Non Tender, Soft Back: Normal Inspection, No CVA Tenderness, No Vertebral Tenderness Extremity: Normal Capillary Refill, Normal Inspection, Normal Range of Motion (Decreased range of motion left leg), Non Tender, No Calf Tenderness, No Pedal Edema Neurologic/Psychiatric: Alert, Oriented x3, No Motor/Sensory Deficits, Normal Mood/Affect Skin: Normal Color, Warm/Dry Lymphatic: No Adenopathy Results Results/Procedures Labs Laboratory Tests 02/07/21 02:55 02/08/21 03:15 Patient resulted labs reviewed. Assessment/Plan Admission Diagnosis Assessment: Atrial fibrillation with rapid ventricular response requiring transfer to the ICU 02/06/21 and discharged from inpatient rehab since less than 3 days of admission Displaced and comminuted intertrochanteric fracture of the left femur status post uncomplicated repair 02/01/21 New onset episode of atrial fibrillation with rapid ventricular rate requiring ICU admission 02/04/21 and Cardizem drip Postop anemia from acute blood loss requiring 2 units of blood Severe postop constipation Plan: Monitor Vick Mcrae cardiology Inpatient rehab once insurance approves Monitor hemoglobin Anticoagulation per cardiology Aggressive bowel regimen Admission Status: Inpatient Order (span 2 midnights) Reason for Inpatient Admission: af rvr resistant type POORNIMA HOANG DO Feb 07, 2021 10:37
[2021-02-07 11:00] LABS: ALBUMIN 3.1 GM/DL (3.2-4.5); BILIRUBIN,DIRECT 0.7 MG/DL (0.0-0.3); BILIRUBIN,INDIRECT 0.9 MG/DL; BILIRUBIN,TOTAL 1.6 MG/DL (0.1-1.0); TOTAL PROTEIN 6.3 GM/DL (6.4-8.2)
[2021-02-07] MEDS: HYDROcodone/APAP 5 MG/325 MG (LORTAB) TAB PO PRN ×3 (11:18→21:24)
--- NOTE | 2021-02-07 11:21 | Occupational Therapy Eval ---
OT Evaluation-General/PLF Medical Diagnosis Admission Date Feb 06, 2021 at 12:25 Medical Diagnosis: A fib with RVR Onset Date: Feb 05, 2021 Therapy Diagnosis Therapy Diagnosis: weakness, decreased ADL Status Height/Weight Height (Feet): 6 Height (Inches): 2.00 Weight (Pounds): 186 Precautions Precautions/Isolations: Fall Prevention, Standard Precautions Weight Bear Status Weight Bearing Restriction: Touch Toe Bearing Location Restriction: L LE Referral Physician: Mya Referral Reason: Evaluation/Treatment Medical History Pertinent Medical History: Atrial Fib, Neuropathy Additional Medical History s/p L hip fx with IM nail Current History transfer from ARU to ICU due to Afib with RVR Social History Home: Single Level Current Living Status: Alone ADL-Prior Level of Function SCALE: Activities may be completed with or without assistive devices. 3-Bntokyexsn-kfcwblv completes the activity by him/herself with no assistance from a helper. 5-Set-up or Clean-up Assistance-helper sets up or cleans up; patient completes activity. [place] assists only prior to or following the activity. 4-Supervision or Touching Assistance-helper provides verbal cues and/or touching/steadying and/or contact guard assistance as patient completes activity. Assistance may be provided throughout the activity or intermittently. 3-Partial/Moderate Assistance-helper does LESS THAN HALF the effort. [place] lif ts, holds or supports trunk or limbs, but provides less than half the effort. 2-Substantial/Maximal Assistance-helper does MORE THAN HALF the effort. [place] lifts or holds trunk or limbs and provides more than half the effort. 7-Gyusqpijl-gvfffz does ALL the effort. Patient does none of the effort to complete the activity. Or, the assistance of 2 or more helpers is required for the patient to complete the activity. If activity was not attempted, code reason: 7-Patient Refused. 9-Not Applicable-not attempted and the patient did not perform the activity before the current illness, exacerbation or injury. 10-Not Attempted due to Environmental Limitations-(lack of equipment, weather restraints, etc.). 88-Not Attempted due to Medical Conditions or Safety Concerns. ADL PLOF Comments Pt independent with ADLs and functional mobility at PLOF, no AD/AE Self Care: Independent DME/Equipment: Grab Bars, Shower OT Current Status Subjective Pt seated upright in recliner, nursing states pt OK for therapy. Pt's heart rate between 78-84 throughout session. Rates pain as 5/10 in L hip Mental Status/Objective Patient Orientation: Normal For Age Attachments: IV, Oxygen, Telemetry Current Hand Dominance: Right Upper Extremity ROM WFL Upper Extremity Coordination WFL Upper Extremity Sensation WFL Upper Extremity Strength grossly 3+/5 ADL-Treatment Eating (QC): 6 (per pt report) Oral Hygiene (QC): 5 (set up at tray table.) Other Treatments Pt seated in recliner, participated in UE screen. Pt agreeable to washing his face and brushing his teeth, able to complete both after set up assistance. Pt removed O2 in order to wash his face, O2 saturation dropped to 89% for a second, but then remained above 90% for the duration of washing his face. Pt declines UE exercises at this time as he would like to rest, tolerating minimal activity. Post tx, pt seated in recliner, call light in reach and all needs met. Education OT Patient Education: Correct positioning, Modified ADL techniques, Progress toward Goal/Update tx plan, Purpose of tx/functional activities Teaching Recipient: Patient Teaching Methods: Discussion Response to Teaching: Verbalize Understanding OT Custodial Goals Information Systems Security Manager Goals Time Frame: Feb 22, 2021 Eating (QC): 6 Oral Hygiene (QC): 6 Toileting Hygiene (QC): 4 Shower/Bathe Self (QC): 4 Upper Body Dressing (QC): 5 Lower Body Dressing (QC): 4 On/Off Footwear (QC): 4 Additional Goals: 1-Demonstrate ADL Tasks, 2-Verbalize Understanding, 3- ImproveStrength/Molly 1=Demonstrate adherence to instructed precautions during ADL tasks. 2=Patient will verbalize/demonstrate understanding of assistive devices/modifications for ADL. 3=Patient will improve strength/tolerance for activity to enable patient to perform ADL's. OT Education/Plan Problem List/Assessment Assessment: Decreased Activ Tolerance, Decreased UE Strength, Impaired Funct Balance, Impaired I ADL's, Impaired Self-Care Skills Discharge Recommendations Plan/Recommendations: Continue POC Treatment Plan/Plan of Care Patient would benefit from OT for education, treatment and training to promote independence in ADL's, mobility, safety and/or upper extremity function for ADL's. Plan of Care: ADL Retraining, Functional Mobility, UE Funct Exercise/Act Treatment Duration: Feb 22, 2021 Frequency: 5 times per week Estimated Hrs Per Day: .25 hour per day Rehab Potential: Fair Time/GCodes Start Time: 10:50 Stop Time: 11:09 Total Time Billed (hr/min): 19 Billed Treatment Time 1, YULISSA ADORNO OT Feb 07, 2021 11:21
[2021-02-07 13:26] VITALS: BP 80/50
--- NOTE | 2021-02-07 13:40 | Physical Therapy Daily Note ---
PT Daily Note-Current Subjective Patient declined OOB activity due to fatigue. Agrees to bed exercises. Mental Status Patient Orientation: Normal For Age Attachments: Oxygen, IV Transfers SCALE: Activities may be completed with or without assistive devices. 1-Tnkvgjxoib-mqufzym completes the activity by him/herself with no assistance from a helper. 5-Set-up or Clean-up Assistance-helper sets up or cleans up; patient completes activity. [place] assists only prior to or following the activity. 4-Supervision or Touching Assistance-helper provides verbal cues and/or touching/steadying and/or contact guard assistance as patient completes activity. Assistance may be provided throughout the activity or intermittently. 3-Partial/Moderate Assistance-helper does LESS THAN HALF the effort. [place] lifts, holds or supports trunk or limbs, but provides less than half the effort. 2-Substantial/Maximal Assistance-helper does MORE THAN HALF the effort. [place] lifts or holds trunk or limbs and provides more than half the effort. 5-Vyabwpcar-ygaqwp does ALL the effort. Patient does none of the effort to complete the activity. Or, the assistance of 2 or more helpers is required for the patient to complete the activity. If activity was not attempted, code reason: 7-Patient Refused. 9-Not Applicable-not attempted and the patient did not perform the activity before the current illness, exacerbation or injury. 10-Not Attempted due to Environmental Limitations-(lack of equipment, weather restraints, etc.). 88-Not Attempted due to Medical Conditions or Safety Concerns. Weight Bearing Right Lower Extremity: Right Full Weight Bearing Left Lower Extremity: Left Touch Toe Bearing Exercises Supine Ex: Ankle pumps, Quad Set, Heel Slides, Straight leg raise Supine Reps: 12 (2 sets AAROM bilaterally) Assessment Patient tolerates minimal activity this p.m. HR remained steady with activity. PT Wall Crane Operator Goals Wall Crane Operator Goals PT Wall Crane Operator Goals Time Frame: Feb 23, 2021 Roll Left & Right (QC): 5 Sit to Lying (QC): 5 Lying-Sitting on Side/Bed(QC): 5 Sit to Stand (QC): 5 Chair/Oxt-xf-[place] Xfer(QC): 5 Toilet Transfer (QC): 5 Does the Patient Walk: Yes Walk 10 feet (QC): 5 Walk 50ft with 2 Turns (QC): 5 Walk 150 ft (QC): 5 PT Plan Treatment/Plan Treatment Plan: Continue Plan of Care Treatment Plan: Bed Mobility, Education, Functional Activity Molly, Functional Strength, Gait, Safety, Therapeutic Exercise, Transfers Treatment Duration: Feb 23, 2021 Frequency: 11 times per week Estimated Hrs Per Day: .5 hour per day Patient and/or Family Agrees t: Yes Time/GCodes Time In: 1315 Time Out: 1325 Total Billed Treatment Time: 10 Total Billed Treatment 1 visit EX 10 min SHABBIR HOWARD PT Feb 07, 2021 13:40
--- NOTE | 2021-02-07 13:47 | ST Cognitive Linguistic Eval ---
Speech Evaluation-General Medical Diagnosis A fib with RVR Onset Date: Feb 05, 2021 Therapy Diagnosis Therapy Diagnosis: Cognitive-communication Referral Referring Physician: Dr. Roque Medical History Pertinent Medical History: Atrial Fib, Neuropathy Reviewed History: Yes Social History Current Living Status: Alone Speech PLF-Current Status Prior Level of Function Patient lived home alone where he was independent for his daily needs. Subjective Patient was pleasant and cooperative with the cognitive assessment. Language Eval: Auditory Comprehends Simple Yes/No Ques: Functional Indent/Objects Multiple Ramirez: Functional Ident/Pics in Multiple Ramirez: Functional Follows 1-Step Commands: Functional Follows Complex Directions: Functional Follows General Conversations: Functional Language Eval: Verbal Language Completes Spontaneous Greeting: Functional Produces Auto, Serial Info: Functional Imitates Simple Words/Phrases: Functional Word Finding: Functional Requests Basic Needs: Functional States Basic Personal Info: Functional Expresses Complex Ideas: Functional Objective Cognitive Domain Attention: WNL Memory: WNL Problem Solving: Functional Executive Functions: WNL Visuospatial Skills: WNL Composite Severity Rating: WNL Objective Formal/Standardized Tests SLUMS portions, informal speech tasks Results Within Normal Limits Oral Motor/Speech Production Within Normal Limits Impression Patient is a pleasant 81 y/o male who was admitted to the ICU due to A-fib. Patient was evaluated for cognitive-communication at bedside. Patient completed evaluation tasks within normal range of function. At this time the patient is not recommended for further ST services. Speech-Plan Patient/Family Goals Patient/Family Goals: Patient plans on returning home upon discharge. Treatment Plan Speech Therapy Treatment Plan: Discontinue ST Treatment Duration: Feb 07, 2021 Frequency: 1 time per week Estimated Hrs Per Day: .25 hour per day Rehab Potential: Fair Barriers to Learning: Patient's age, medical status Pt/Family Agrees to Plan: Yes Safety Risks/Education Teaching Recipient: Patient Teaching Methods: Discussion Response to Teaching: Verbalize Understanding Education Topics Provided: Safety and communication Time Speech Therapy Time In: 13:25 Speech Therapy Time Out: 13:40 Total Billed Time: 15 Billed Treatment Time 1, OSKAR [facility]IN [facility] [facility] Feb 07, 2021 13:47
[2021-02-07] MEDS: FLEET ENEMA ADULT 1 EA BTL PR PRN ×2 (17:39→19:47)
[2021-02-07] MEDS: polyethylene glycoL POWDER 17 GM (MIRALAX) PACK PO SCH (20:15)
[2021-02-08 04:02] LABS: BASOPHILS % (AUTO) 0 % (0-10); EOSINOPHILS % (AUTO) 0 % (0-10); HEMATOCRIT 21 % (40-54); LYMPHOCYTES % (AUTO) 5 % (12-44); MEAN CORPUSCULAR HEMOGLOBIN 32 pg (25-34); MEAN CORPUSCULAR HGB CONC 32 g/dL (32-36); MEAN CORPUSCULAR VOLUME 99 fL (80-99); MEAN PLATELET VOLUME 10.5 fL (9.0-12.2); MONOCYTES # (AUTO) 2.3 10^3/uL (0.0-1.0); MONOCYTES % (AUTO) 12 % (0-12); NEUTROPHILS # (AUTO) 14.8 10^3/uL (1.8-7.8); NEUTROPHILS % (AUTO) 79 % (42-75); PLATELET COUNT 253 10^3/uL (130-400); WHITE BLOOD COUNT 18.8 10^3/uL (4.3-11.0)
[2021-02-08 04:22] LABS: HEMOGLOBIN 6.7 g/dL (13.3-17.7)
[2021-02-08 04:24] LABS: POTASSIUM 4.4 MMOL/L (3.6-5.0)
[2021-02-08 04:30] LABS: CREATININE SERUM 1.69 MG/DL (0.60-1.30); PHOSPHORUS 3.6 MG/DL (2.3-4.7)
[2021-02-08 04:32] LABS: MAGNESIUM 2.3 MG/DL (1.6-2.4)
[2021-02-08] MEDS ORDERED: NS IV 500 ML 500 ML IV SCH ×2 (04:45→09:30)
[2021-02-08 05:40] LABS: BAND NEUTROPHILS 1 %; LYMPHOCYTES % (MANUAL) 11 %; METAMYELOCYTES % 1 %; MONOCYTES % (MANUAL) 12 %; NEUTROPHILS % (MANUAL) 75 %; RBC MORPH NORMAL
[2021-02-08] MEDS: KCL 20 MEQ TAB (K-DUR) PO SCH (05:42)
[2021-02-08] MEDS: POTASSIUM CL 10MEQ/50ML IVPB 50 ML IV SCH (05:42)
[2021-02-08] MEDS: MAGNESIUM 1 GM/100 ML IVPB 100 ML IV SCH (05:42)
[2021-02-08] MEDS ORDERED: NS IV 500 ML 500 ML ONE (06:51)
[2021-02-08] MEDS: RT-ALBUTEROL/IPRATROPIUM 3 ML (DUONEB) VIAL INH SCH ×3 (06:57→20:47)
[2021-02-08] MEDS: APIXABAN 5 MG (ELIQUIS) TABLET PO SCH ×2 (08:29→20:10)
[2021-02-08] MEDS: ASPIRIN E.C. 81 MG (ECOTRIN) TAB PO SCH (08:29)
[2021-02-08] MEDS: meTOprolol TARTRATE 25 MG (LOPRESSOR) TABLET PO SCH ×2 (08:29→20:10)
[2021-02-08] MEDS: AMIODARONE 200 MG (CORDARONE) TAB PO SCH ×2 (08:29→20:10)
[2021-02-08 09:05] VITALS: BP 139/70
--- NOTE | 2021-02-08 09:14 | Progress Note - Cardiology ---
Cardiology SOAP Progress Note Subjective: Sitting up in recliner at the bedside. No c/o SOB or palpitations. No c/o CP. C/O hip pain. Objective: I&O/Vital Signs Weight (Pounds): 186 Weight (Calculated Kilograms): 81.159673 Constitutional: AAO x 3, well-developed, well-nourished Respiratory: No accessory muscle use, No respiratory distress; chest expansion is symmetric, chest is bilaterally symmetric, lungs clear to auscultation Cardiovascular: regular rate-rhythm; No JVD; S1 and S2 Gastrointestional: No tender; soft, round, audible bowel sounds Extremities: other (mild to mod LE swelling; L>R) Neurologic/Psychiatric: grossly intact (moves all extremities) Skin: No rash on exposed areas, No ulcerations on exposed areas Results/Procedures: Labs A/P: Assessment: Paroxysmal atrial fibrillation (new onset this admission) - maintaining SR on Amiodarone OAC with Eliquis [id number] score of 2, yearly risk of stroke without oral anticoagulation is 2.2%. Patient will be started on Eliquis and will monitor as an outpatient. Anemia post surgical - transfuse - management per surgical/medical services Left hip fracture, underwent surgical repair with Dr. Morrison on February 01, 2021 Renal insufficiency, monitor renal function. Plan: Maintaining SR Continue OAC for stroke prophylaxis Advise transfusion d/t post op anemia Monitor lab closely Replace electrolytes as indicated JANELLE BETANCOURT Feb 08, 2021 09:14
[2021-02-08 09:21] VITALS: BP 134/63
--- NOTE | 2021-02-08 09:26 | Physical Therapy Daily Note ---
PT Daily Note-Current Subjective Patient reports he is not doing well and reluctantly agrees to PT. Appearance Patient currently receiving PRBC due to critical Hgb. Mental Status Patient Orientation: Normal For Age Attachments: Oxygen, IV Transfers SCALE: Activities may be completed with or without assistive devices. 4-Amnbaisbol-suticdd completes the activity by him/herself with no assistance from a helper. 5-Set-up or Clean-up Assistance-helper sets up or cleans up; patient completes activity. [place] assists only prior to or following the activity. 4-Supervision or Touching Assistance-helper provides verbal cues and/or touching/steadying and/or contact guard assistance as patient completes activity. Assistance may be provided throughout the activity or intermittently. 3-Partial/Moderate Assistance-helper does LESS THAN HALF the effort. [place] lifts, holds or supports trunk or limbs, but provides less than half the effort. 2-Substantial/Maximal Assistance-helper does MORE THAN HALF the effort. [place] lifts or holds trunk or limbs and provides more than half the effort. 0-Xxxieuubk-qccqoo does ALL the effort. Patient does none of the effort to complete the activity. Or, the assistance of 2 or more helpers is required for the patient to complete the activity. If activity was not attempted, code reason: 7-Patient Refused. 9-Not Applicable-not attempted and the patient did not perform the activity before the current illness, exacerbation or injury. 10-Not Attempted due to Environmental Limitations-(lack of equipment, weather restraints, etc.). 88-Not Attempted due to Medical Conditions or Safety Concerns. Weight Bearing Right Lower Extremity: Right Full Weight Bearing Left Lower Extremity: Left Touch Toe Bearing Exercises Supine Ex: Ankle pumps, Quad Set Supine Reps: 12 (in recliner with bilateral LE elevated.) Seated Therapy Exercises: Ankle pumps, Long arc quads Seated Reps: 12 (2 sets) Assessment Patient tolerated minimal activity this a.m. and declined standing activity. PT to increase activity as tolerated by patient. PT Halfway Goals Halfway Goals PT Halfway Goals Time Frame: Feb 23, 2021 Roll Left & Right (QC): 5 Sit to Lying (QC): 5 Lying-Sitting on Side/Bed(QC): 5 Sit to Stand (QC): 5 Chair/Gvl-qg-Mjwaa Xfer(QC): 5 Toilet Transfer (QC): 5 Does the Patient Walk: Yes Walk 10 feet (QC): 5 Walk 50ft with 2 Turns (QC): 5 Walk 150 ft (QC): 5 PT Plan Treatment/Plan Treatment Plan: Continue Plan of Care Treatment Plan: Bed Mobility, Education, Functional Activity Molly, Functional Strength, Gait, Safety, Therapeutic Exercise, Transfers Treatment Duration: Feb 23, 2021 Frequency: 11 times per week Estimated Hrs Per Day: .5 hour per day Patient and/or Family Agrees t: Yes Time/GCodes Time In: 835 Time Out: 852 Total Billed Treatment Time: 17 Total Billed Treatment 1 visit EX 17 min SHABBIR HOWARD PT Feb 08, 2021 09:26
--- NOTE | 2021-02-08 11:14 | Occupational Ther Daily Note ---
OT Current Status-Daily Note Subjective Pt alert, sitting on BSC. Pt agrees to therapy. C/o fatigue. Mental Status/Objective Patient Orientation: Person, Place, Time, Situation Attachments: IV, Oxygen, Telemetry ADL-Treatment Pt on BSC. SBA for sit to stand from BSC. Pt unable to remove a hand from FWW to complete own hygiene, assist given to cleanse. CGA to transfer from BSC to recliner using FWW. Assist to make pt comfortable in chair. Nrsg and nrsg tech in room during treatment. Call light/phone in reach. All needs met in room. Therapy Code Descriptions/Definitions Functional [place] Measure: 0=Not Assessed/NA 4=Minimal Assistance 1=Total Assistance 5=Supervision or Setup 2=Maximal Assistance 6=Modified [place] 3=Moderate Assistance 7=Complete IndependenceSCALE: Activities may be completed with or without assistive devices. 7-Hjeauajmys-cnpcnlj completes the activity by him/herself with no assistance from a helper. 5-Set-up or Clean-up Assistance-helper sets up or cleans up; patient completes activity. [place] assists only prior to or following the activity. 4-Supervision or Touching Assistance-helper provides verbal cues and/or touching/steadying and/or contact guard assistance as patient completes activity. Assistance may be provided throughout the activity or intermittently. 3-Partial/Moderate Assistance-helper does LESS THAN HALF the effort. [place] lifts, holds or supports trunk or limbs, but provides less than half the effort. 2-Substantial/Maximal Assistance-helper does MORE THAN HALF the effort. [place] lifts or holds trunk or limbs and provides more than half the effort. 9-Tcbewvvcv-glazjo does ALL the effort. Patient does none of the effort to complete the activity. Or, the assistance of 2 or more helpers is required for the patient to complete the activity. If activity was not attempted, code reason: 7-Patient Refused. 9-Not Applicable-not attempted and the patient did not perform the activity before the current illness, exacerbation or injury. 10-Not Attempted due to Environmental Limitations-(lack of equipment, weather restraints, etc.). 88-Not Attempted due to Medical Conditions or Safety Concerns. Other Treatment Pt given B UE strengthening HEP to complete without resistance band at this time. Pt declined to complete any exercises at this time due to fatigue. OT Ehs Engineer Goals Jail Goals Time Frame: Feb 22, 2021 Eating (QC): 6 Oral Hygiene (QC): 6 Toileting Hygiene (QC): 4 Shower/Bathe Self (QC): 4 Upper Body Dressing (QC): 5 Lower Body Dressing (QC): 4 On/Off Footwear (QC): 4 Additional Goals: 1-Demonstrate ADL Tasks, 2-Verbalize Understanding, 3- ImproveStrength/Molly 1=Demonstrate adherence to instructed precautions during ADL tasks. 2=Patient will verbalize/demonstrate understanding of assistive devices/modifications for ADL. 3=Patient will improve strength/tolerance for activity to enable patient to perform ADL's. OT Education/Plan Problem List/Assessment Assessment: Decreased Activ Tolerance, Decreased UE Strength, Impaired Self- Care Skills Discharge Recommendations Plan/Recommendations: Continue POC Treatment Plan/Plan of Care Patient would benefit from OT for education, treatment and training to promote independence in ADL's, mobility, safety and/or upper extremity function for ADL's. Plan of Care: ADL Retraining, Functional Mobility, UE Funct Exercise/Act Treatment Duration: Feb 22, 2021 Frequency: 5 times per week Estimated Hrs Per Day: .25 hour per day Rehab Potential: Fair Time/GCodes Start Time: 10:50 Stop Time: 11:05 Total Time Billed (hr/min): 15 Billed Treatment Time 1 visit-FA 1 (15 min) LOREN SHANNON Feb 08, 2021 11:14
[2021-02-08 11:21] VITALS: BP 130/48
[2021-02-08 12:58] VITALS: BP 127/85
[2021-02-08 13:12] VITALS: BP 112/59
--- NOTE | 2021-02-08 13:53 | Progress Note ---
Subjective Date Seen by a Provider: Feb 08, 2021 Time Seen by a Provider: 13:55 Subjective/Events-last exam Patient doing about the same today Giving 2 units of blood since his hemoglobin 6.7 Bowels are now moving last night Check meds and labs No pain is reported except hip Submitted to insurance but will likely be Thursday before rehab admit Dr. Morrison is checking on him also Review of Systems Musculoskeletal: leg pain Objective Exam Last Set of Vital Signs Vital Signs Date Time Temp Pulse Resp B/P (MAP) Pulse Ox O2 Delivery O2 Flow Rate FiO2 02/08/21 13:12 36.8 58 16 112/59 Room Air 02/08/21 12:00 1.00 95 02/08/21 11:21 94 Capillary Refill : I&O Intake and Output 02/08/21 00:00 Intake Total 2259 ml Output Total 1025 ml Balance 1234 ml Intake Oral 2000 ml IV Total 259 ml Output Urine Total 1025 ml General: Alert, Oriented X3, Cooperative, No Acute Distress Lungs: Clear to Auscultation, Normal Air Movement Heart: Regular Rate, Normal S1, Normal S2, No Murmurs Psych/Mental Status: Mental Status NL Results Lab Laboratory Tests 02/08/21 03:15: White Blood Count 18.8H, Red Blood Count 2.10L, Hemoglobin 6.7*L, Hematocrit 21L , Mean Corpuscular Volume 99, Mean Corpuscular Hemoglobin 32, Mean Corpuscular Hemoglobin Concent 32, Red Cell Distribution Width 14.2, Platelet Count 253, Mean Platelet Volume 10.5, Immature Granulocyte % (Auto) 3, Neutrophils (%) (Auto) 79H, Lymphocytes (%) (Auto) 5L, Monocytes (%) (Auto) 12, Eosinophils (%) (Auto) 0, Basophils (%) (Auto) 0, Neutrophils # (Auto) 14.8H, Lymphocytes # (Auto) 1.0, Monocytes # (Auto) 2.3H, Eosinophils # (Auto) 0.0, Basophils # (Auto) 0.0, Immature Granulocyte # (Auto) 0.6H, Neutrophils % (Manual) 75, Lymphocytes % (Manual) 11, Monocytes % (Manual) 12, Metamyelocytes % 1, Band Neutrophils 1, Blood Morphology Comment NORMAL, Sodium Level 132L, Potassium Level 4.4, Chloride Level 96L, Carbon Dioxide Level 23, Anion Gap 13, Blood Urea Nitrogen 33H, Creatinine 1.69H, Estimat Glomerular Filtration Rate 39, BUN/Creatinine Ratio 20, Glucose Level 113H, Calcium Level 8.0L, Phosphorus Level 3.6, Magnesium Level 2.3 Assessment/Plan Assessment/Plan Assess & Plan/Chief Complaint Assessment: Atrial fibrillation with rapid ventricular response requiring transfer to the ICU 02/06/21 and discharged from inpatient rehab since less than 3 days of admission Displaced and comminuted intertrochanteric fracture of the left femur status post uncomplicated repair 02/01/21 New onset episode of atrial fibrillation with rapid ventricular rate requiring ICU admission 02/04/21 and Cardizem drip Postop anemia from acute blood loss requiring 2 units of blood Severe postop constipation Plan: Monitor A. fib Appreciate cardiology Inpatient rehab once insurance approves Monitor hemoglobin Anticoagulation per cardiology Aggressive bowel regimen 02/08/2021: Transfuse 2 units Manage pain Monitor closely due to A. fib with RVR recurrent episode x2 APRYL KAMINSKI DO Feb 08, 2021 13:53
--- NOTE | 2021-02-08 14:07 | Progress Note ---
Standard Progress Note Progress Notes/Assess & Plan Date Seen by a Provider: Feb 08, 2021 Time Seen by a Provider: 14:06 Progress/Assessment & Plan No complaints re L hip Dressing intact no calf tenderness neg Sherly's s/p L hip IM aarti continue TTWB HUMERA BERNAL MD Feb 08, 2021 14:07
--- NOTE | 2021-02-08 14:27 | Physical Therapy Daily Note ---
PT Daily Note-Current Subjective Patient continues to c/o right hip pain. Dr. Morrison notified. Patient agrees to PT. Pain Numeric Pain Scale: 5-Moderate Pain Location: Right Location Body Site: Hip Pain Description: Ache Mental Status Patient Orientation: Normal For Age Attachments: Oxygen, IV Transfers SCALE: Activities may be completed with or without assistive devices. 9-Vqoetlndrt-crlqjmk completes the activity by him/herself with no assistance from a helper. 5-Set-up or Clean-up Assistance-helper sets up or cleans up; patient completes activity. [place] assists only prior to or following the activity. 4-Supervision or Touching Assistance-helper provides verbal cues and/or touching/steadying and/or contact guard assistance as patient completes activity. Assistance may be provided throughout the activity or intermittently. 3-Partial/Moderate Assistance-helper does LESS THAN HALF the effort. [place] lifts, holds or supports trunk or limbs, but provides less than half the effort. 2-Substantial/Maximal Assistance-helper does MORE THAN HALF the effort. [place] lifts or holds trunk or limbs and provides more than half the effort. 2-Ucurlfiwl-blqlnv does ALL the effort. Patient does none of the effort to complete the activity. Or, the assistance of 2 or more helpers is required for the patient to complete the activity. If activity was not attempted, code reason: 7-Patient Refused. 9-Not Applicable-not attempted and the patient did not perform the activity before the current illness, exacerbation or injury. 10-Not Attempted due to Environmental Limitations-(lack of equipment, weather restraints, etc.). 88-Not Attempted due to Medical Conditions or Safety Concerns. Sit to Lying (QC): 2 Sit to Stand (QC): 3 Chair/Hta-zk-Clfip Xfer(QC): 3 Weight Bearing Right Lower Extremity: Right Full Weight Bearing Left Lower Extremity: Left Touch Toe Bearing Gait Training Does the Patient Walk?: Yes Distance: 10' x 2 Walk 10 feet (QC): 3 Gait Assistive Device: FWW TTWB left LE with increase c/o pain right hip Exercises Supine Ex: Ankle pumps, Quad Set, Heel Slides (AAROM) Seated Therapy Exercises: Ankle pumps, Long arc quads Seated Reps: 12 Assessment Patient fatigues with minimal activity. Patient returned to bed with needs met. Increase activity as tolerated by patient. PT Weed Control Inspector Goals Weed Control Inspector Goals PT Weed Control Inspector Goals Time Frame: Feb 23, 2021 Roll Left & Right (QC): 5 Sit to Lying (QC): 5 Lying-Sitting on Side/Bed(QC): 5 Sit to Stand (QC): 5 Chair/Blx-fn-Xexqt Xfer(QC): 5 Toilet Transfer (QC): 5 Does the Patient Walk: Yes Walk 10 feet (QC): 5 Walk 50ft with 2 Turns (QC): 5 Walk 150 ft (QC): 5 PT Plan Treatment/Plan Treatment Plan: Continue Plan of Care Treatment Plan: Bed Mobility, Education, Functional Activity Molly, Functional Strength, Gait, Safety, Therapeutic Exercise, Transfers Treatment Duration: Feb 23, 2021 Frequency: 11 times per week Estimated Hrs Per Day: .5 hour per day Patient and/or Family Agrees t: Yes Time/GCodes Time In: 1350 Time Out: 1407 Total Billed Treatment Time: 17 Total Billed Treatment 1 visit FA 17 min SHABBIR HOWARD PT Feb 08, 2021 14:27
--- NOTE | 2021-02-08 14:29 | Tele-ICU Progress Note ---
Subjective Date Seen by a Provider: Feb 08, 2021 Time Seen by a Provider: 09:00 Subjective/Events-last exam Elderly male with a recent left hip fracture status post ORIF now admitted from the rehab unit because of for new onset atrial fibrillation and rapid ventricular rate started on amiodarone. Currently amiodarone changed to oral. His heart rate is controlled which is at 82/min when I examined however he does have a atrial flutter. He is on Eliquis. His hemoglobin dropped to 6.7 today and received 1 unit of packed red blood cells. There is no overt signs of bleeding present. Hemodynamically stable. Is being followed by cardiology. Discussed with the ANIMAL DAYCARE PROVIDER and video visit made Review of Systems Pulmonary: Dyspnea, Cough, Pleuritic Chest Pain, Other Cardiovascular: Palpitations (atrial flutter rate controlled), Other (atrial flutter. rate controlled) Sepsis Event Evaluation Height, Weight, BMI Height: 6'2.00" Weight: 186lbs. oz. [id number]; 23.42 BMI Method: Exam Exam Patient acknowledged, consented, and participated in this virtual visit which was conducted using real time audio/video Vital Signs Date Time Temp Pulse Resp B/P (MAP) Pulse Ox O2 Delivery O2 Flow Rate FiO2 02/08/21 14:00 72 24 136/71 (92) Nasal Cannula 1.00 02/08/21 13:58 97 Nasal Cannula 2.00 02/08/21 13:12 36.8 58 16 112/59 Room Air 02/08/21 13:00 64 17 110/75 (87) Nasal Cannula 1.00 02/08/21 12:58 36.8 63 16 127/85 Room Air 02/08/21 12:00 Nasal Cannula 1.00 95 02/08/21 12:00 62 22 120/45 (70) Nasal Cannula 1.00 02/08/21 11:42 37.0 02/08/21 11:21 36.8 70 18 130/48 94 Room Air 02/08/21 11:00 60 18 130/48 (75) 98 Nasal Cannula 1.00 02/08/21 10:00 74 18 130/89 (103) 98 Nasal Cannula 1.00 02/08/21 09:21 36.3 68 18 134/63 95 Room Air 02/08/21 09:05 36.4 73 18 139/70 94 Nasal Cannula 1.00 02/08/21 09:00 64 14 143/86 (105) 100 Nasal Cannula 1.00 02/08/21 08:00 36.6 02/08/21 08:00 Nasal Cannula 2.00 95 02/08/21 08:00 70 14 150/68 (95) 96 Nasal Cannula 1.00 02/08/21 07:00 64 02/08/21 07:00 63 11 157/81 (106) 90 Nasal Cannula 1.00 02/08/21 06:57 100 Nasal Cannula 2.00 02/08/21 06:00 70 24 96 Nasal Cannula 1.00 02/08/21 05:00 68 23 96 Nasal Cannula 1.00 02/08/21 04:04 36.8 02/08/21 04:00 Nasal Cannula 1.00 95 02/08/21 04:00 71 15 117/57 (77) 95 Nasal Cannula 1.00 02/08/21 03:00 74 16 123/59 (80) 95 Nasal Cannula 1.00 02/08/21 02:00 65 15 117/73 (88) 97 Nasal Cannula 1.00 02/08/21 01:00 71 02/08/21 01:00 72 17 130/106 (114) 97 Nasal Cannula 1.00 02/08/21 00:14 36.0 02/08/21 00:00 Nasal Cannula 1.00 95 02/08/21 00:00 68 14 127/46 (73) 94 Nasal Cannula 1.00 02/07/21 23:00 64 24 97 Nasal Cannula 1.00 02/07/21 22:00 66 14 118/59 (78) 98 Nasal Cannula 1.00 02/07/21 21:30 Nasal Cannula 1.00 02/07/21 21:00 69 15 128/69 (88) 92 Nasal Cannula 1.00 02/07/21 20:00 Nasal Cannula 2.00 97 02/07/21 20:00 81 15 97 Nasal Cannula 1.00 02/07/21 19:00 62 02/07/21 19:00 67 17 97/50 (66) 97 Nasal Cannula 1.00 02/07/21 19:00 Nasal Cannula 2.00 02/07/21 18:48 98 Nasal Cannula 2.00 02/07/21 17:30 67 22 106/41 (62) 98 Nasal Cannula 1.00 02/07/21 16:00 36.0 02/07/21 16:00 Nasal Cannula 2.00 95 02/07/21 15:00 57 14 110/59 (76) 97 Nasal Cannula 1.00 02/07/21 14:27 99 Nasal Cannula 2.00 I & O 02/08/21 07:00 Intake Total 2659 ml Output Total 1150 ml Balance 1509 ml Height & Weight Height: 6'2.00" Weight: 186lbs. oz. [id number]; 23.42 BMI Method: General Appearance: No Apparent Distress, WD/WN HEENT: PERRL/EOMI, Normal ENT Inspection, Pharynx Normal Neck: Full Range of Motion, Normal Inspection, Non Tender, Supple, Carotid Bruit Respiratory: Chest Non Tender, Lungs Clear, Normal Breath Sounds, No Accessory Muscle Use, No Respiratory Distress Cardiovascular: Regular Rate, Rhythm, No Edema, No Gallop, No JVD, No Murmur, Normal Peripheral Pulses Extremity: Normal Capillary Refill, Normal Inspection, Normal Range of Motion (Decreased range of motion left leg), Non Tender, No Calf Tenderness, No Pedal Edema Neurologic/Psychiatric: Alert, Oriented x3, No Motor/Sensory Deficits, Normal Mood/Affect Skin: Normal Color, Warm/Dry Lymphatic: No Adenopathy Results Lab Laboratory Tests 02/07/21 02:55 02/08/21 03:15 Meds reviewed Radiology images reviewed Assessment/Plan Assessment/Plan 1. New onset atrial fibrillation with rapid ventricular rate currently on amiodarone and rate control. He does have intermittent atrial flutter. 2. Recent left hip fracture status post fall ORIF. 3. Anemia most likely perioperative however no overt external bleeding present. Receiving transfusion 4. Anticoagulation with Eliquis. However if he continues to drop hemoglobin it needs to be hold. Reviewed with the RN. 5. Constipation. He is on a bowel program. Recommendations 1. Continue blood transfusion and recheck hemoglobin posttransfusion. 2. If he continues to drop hemoglobin suggest to hold off Eliquis. 3. Continue amiodarone per cardiology. 4. Ulcer prophylaxis with Protonix 5. DVT prophylaxis. On Eliquis currently. 6. Continue monitor cardiac rhythm and adjust medications per cardiology.... Critical Care: Critically Ill Patient Time spent with patient (mins): 25 FESTUS VIVEROS MD Feb 08, 2021 14:29
--- NOTE | 2021-02-08 14:34 | Progress Note - Cardiology ---
Cardiology SOAP Progress Note Subjective: Gen malaise and weakness present No cp or palp or syncope No shortness of breath at rest No n/v/d Objective: I&O/Vital Signs 02/08/21 02/08/21 02/08/21 02/08/21 03:00 04:00 04:00 04:04 Temp 36.8 Pulse 74 71 Resp 16 15 B/P (MAP) 123/59 (80) 117/57 (77) Pulse Ox 95 95 O2 Delivery Nasal Cannula Nasal Cannula Nasal Cannula O2 Flow Rate 1.00 1.00 1.00 FiO2 95 02/08/21 02/08/21 02/08/21 02/08/21 05:00 06:00 06:57 07:00 Pulse 68 70 63 Resp 23 24 11 B/P (MAP) 157/81 (106) Pulse Ox 96 96 100 90 O2 Delivery Nasal Cannula Nasal Cannula Nasal Cannula Nasal Cannula O2 Flow Rate 1.00 1.00 2.00 1.00 02/08/21 02/08/21 02/08/21 02/08/21 07:00 08:00 08:00 08:00 Temp 36.6 Pulse 64 70 Resp 14 B/P (MAP) 150/68 (95) Pulse Ox 96 O2 Delivery Nasal Cannula Nasal Cannula O2 Flow Rate 1.00 2.00 FiO2 95 02/08/21 02/08/21 02/08/21 02/08/21 09:00 09:05 09:21 10:00 Temp 36.4 36.3 Pulse 64 73 68 74 Resp 14 18 18 18 B/P (MAP) 143/86 (105) 139/70 134/63 130/89 (103) Pulse Ox 100 94 95 98 O2 Delivery Nasal Cannula Nasal Cannula Room Air Nasal Cannula O2 Flow Rate 1.00 1.00 1.00 02/08/21 02/08/21 02/08/21 02/08/21 11:00 11:21 11:42 12:00 Temp 36.8 37.0 Pulse 60 70 62 Resp 18 18 22 B/P (MAP) 130/48 (75) 130/48 120/45 (70) Pulse Ox 98 94 O2 Delivery Nasal Cannula Room Air Nasal Cannula O2 Flow Rate 1.00 1.00 02/08/21 02/08/21 02/08/21 02/08/21 12:00 12:58 13:00 13:12 Temp 36.8 36.8 Pulse 63 64 58 Resp 16 17 16 B/P (MAP) 127/85 110/75 (87) 112/59 O2 Delivery Nasal Cannula Room Air Nasal Cannula Room Air O2 Flow Rate 1.00 1.00 FiO2 95 02/08/21 02/08/21 13:58 14:00 Pulse 72 Resp 24 B/P (MAP) 136/71 (92) Pulse Ox 97 O2 Delivery Nasal Cannula Nasal Cannula O2 Flow Rate 2.00 1.00 02/08/21 00:00 Intake Total 1209 ml Output Total 650 ml Balance 559 ml Weight (Pounds): 186 Weight (Calculated Kilograms): 81.752773 Constitutional: AAO x 3, well-developed, well-nourished Respiratory: No accessory muscle use, No respiratory distress; chest expansion is symmetric, chest is bilaterally symmetric, lungs clear to auscultation Cardiovascular: regular rate-rhythm; No JVD; S1 and S2 Gastrointestional: No tender; soft, round, audible bowel sounds Extremities: other (mild to mod LE swelling; L>R) Neurologic/Psychiatric: grossly intact (moves all extremities) Skin: No rash on exposed areas, No ulcerations on exposed areas Results/Procedures: Labs Laboratory Tests 02/08/21 03:15: White Blood Count 18.8H, Red Blood Count 2.10L, Hemoglobin 6.7*L, Hematocrit 21L , Mean Corpuscular Volume 99, Mean Corpuscular Hemoglobin 32, Mean Corpuscular Hemoglobin Concent 32, Red Cell Distribution Width 14.2, Platelet Count 253, Mean Platelet Volume 10.5, Immature Granulocyte % (Auto) 3, Neutrophils (%) (Auto) 79H, Lymphocytes (%) (Auto) 5L, Monocytes (%) (Auto) 12, Eosinophils (%) (Auto) 0, Basophils (%) (Auto) 0, Neutrophils # (Auto) 14.8H, Lymphocytes # (Auto) 1.0, Monocytes # (Auto) 2.3H, Eosinophils # (Auto) 0.0, Basophils # (Auto) 0.0, Immature Granulocyte # (Auto) 0.6H, Neutrophils % (Manual) 75, Lymphocytes % (Manual) 11, Monocytes % (Manual) 12, Metamyelocytes % 1, Band N eutrophils 1, Blood Morphology Comment NORMAL, Sodium Level 132L, Potassium Lev el 4.4, Chloride Level 96L, Carbon Dioxide Level 23, Anion Gap 13, Blood Urea Nitrogen 33H, Creatinine 1.69H, Estimat Glomerular Filtration Rate 39, BUN/Creatinine Ratio 20, Glucose Level 113H, Calcium Level 8.0L, Phosphorus Level 3.6, Magnesium Level 2.3 Laboratory Tests 02/07/21 02:55 02/08/21 03:15 A/P: Assessment: Paroxysmal atrial fibrillation (new onset this admission) - maintaining SR on Amiodarone OAC with Eliquis [id number] score of 2, yearly risk of stroke without oral anticoagulation is 2.2%. Patient will be started on Eliquis and will monitor as an outpatient. Anemia post surgical - transfuse - management per [facility] and Medical services Left hip fracture, underwent surgical repair with Dr. Morrison on February 01, 2021 Renal insufficiency, monitor renal function. Plan: Maintaining SR Continue OAC for stroke prophylaxis of OK with Med and Surg services Advise transfusion d/t post op anemia Monitor lab closely Replace electrolytes as indicated EPI SMITH MD FACP FACC CCDS Feb 08, 2021 14:34
[2021-02-08 14:41] VITALS: BP 125/61
[2021-02-08] MEDS: HYDROcodone/APAP 5 MG/325 MG (LORTAB) TAB PO PRN (19:29)
[2021-02-08] MEDS: polyethylene glycoL POWDER 17 GM (MIRALAX) PACK PO SCH (19:56)
[2021-02-09] MEDS: HYDROcodone/APAP 5 MG/325 MG (LORTAB) TAB PO PRN ×2 (02:17→08:02)
[2021-02-09 03:53] LABS: BASOPHILS % (AUTO) 0 % (0-10); EOSINOPHILS # (AUTO) 0.1 10^3/uL (0.0-0.3); EOSINOPHILS % (AUTO) 0 % (0-10); HEMATOCRIT 24 % (40-54); HEMOGLOBIN 7.9 g/dL (13.3-17.7); LYMPHOCYTES # (AUTO) 1.2 10^3/uL (1.0-4.0); LYMPHOCYTES % (AUTO) 10 % (12-44); MEAN CORPUSCULAR HEMOGLOBIN 32 pg (25-34); MEAN CORPUSCULAR HGB CONC 33 g/dL (32-36); MEAN CORPUSCULAR VOLUME 95 fL (80-99); MEAN PLATELET VOLUME 9.9 fL (9.0-12.2); MONOCYTES # (AUTO) 1.6 10^3/uL (0.0-1.0); MONOCYTES % (AUTO) 13 % (0-12); NEUTROPHILS % (AUTO) 71 % (42-75); PLATELET COUNT 256 10^3/uL (130-400); WHITE BLOOD COUNT 12.7 10^3/uL (4.3-11.0)
[2021-02-09 04:09] LABS: POTASSIUM 3.9 MMOL/L (3.6-5.0)
[2021-02-09 04:10] LABS: CALCIUM 8.1 MG/DL (8.5-10.1)
[2021-02-09 04:14] LABS: CREATININE SERUM 1.55 MG/DL (0.60-1.30); PHOSPHORUS 3.3 MG/DL (2.3-4.7)
[2021-02-09 04:17] LABS: MAGNESIUM 2.4 MG/DL (1.6-2.4)
[2021-02-09] MEDS: MAGNESIUM 1 GM/100 ML IVPB 100 ML IV SCH (04:19)
[2021-02-09] MEDS: POTASSIUM CL 10MEQ/50ML IVPB 50 ML IV SCH (04:19)
[2021-02-09] MEDS: KCL 20 MEQ TAB (K-DUR) PO SCH (04:19)
[2021-02-09] MEDS: APIXABAN 5 MG (ELIQUIS) TABLET PO SCH ×2 (08:01→20:54)
[2021-02-09] MEDS: meTOprolol TARTRATE 25 MG (LOPRESSOR) TABLET PO SCH ×2 (08:01→20:54)
[2021-02-09] MEDS: ASPIRIN E.C. 81 MG (ECOTRIN) TAB PO SCH (08:01)
[2021-02-09] MEDS: AMIODARONE 200 MG (CORDARONE) TAB PO SCH ×2 (08:02→20:53)
[2021-02-09] MEDS ORDERED: PANTOPRAZOLE 40 MG (PROTONIX) TAB PO ONE (08:45)
--- NOTE | 2021-02-09 08:48 | Physical Therapy Daily Note ---
PT Daily Note-Current Subjective Patient agrees to PT. Pain Numeric Pain Scale: 5-Moderate Pain Location: Right, Left Location Body Site: Hip Mental Status Patient Orientation: Normal For Age Attachments: Oxygen Transfers SCALE: Activities may be completed with or without assistive devices. 3-Zkyusepzil-drocjyu completes the activity by him/herself with no assistance from a helper. 5-Set-up or Clean-up Assistance-helper sets up or cleans up; patient completes activity. [place] assists only prior to or following the activity. 4-Supervision or Touching Assistance-helper provides verbal cues and/or touching/steadying and/or contact guard assistance as patient completes activity. Assistance may be provided throughout the activity or intermittently. 3-Partial/Moderate Assistance-helper does LESS THAN HALF the effort. [place] lifts, holds or supports trunk or limbs, but provides less than half the effort. 2-Substantial/Maximal Assistance-helper does MORE THAN HALF the effort. [place] lifts or holds trunk or limbs and provides more than half the effort. 1-Zetuyecyh-arinkn does ALL the effort. Patient does none of the effort to complete the activity. Or, the assistance of 2 or more helpers is required for the patient to complete the activity. If activity was not attempted, code reason: 7-Patient Refused. 9-Not Applicable-not attempted and the patient did not perform the activity before the current illness, exacerbation or injury. 10-Not Attempted due to Environmental Limitations-(lack of equipment, weather restraints, etc.). 88-Not Attempted due to Medical Conditions or Safety Concerns. Lying to Sitting/Side of Bed(Q: 3 Sit to Stand (QC): 3 Chair/Hrt-ag-Dzkln Xfer(QC): 3 Toilet Transfer (QC): 3 Weight Bearing Right Lower Extremity: Right Full Weight Bearing Left Lower Extremity: Left Touch Toe Bearing Gait Training Distance: 10' x 3 Walk 10 feet (QC): 3 Gait Assistive Device: FWW Patient has increase c/o right hip pain but is compliant with TTWB left LE Exercises Supine Ex: Ankle pumps, Quad Set, Heel Slides (AAROM bilaterally), Straight leg raise (AAROM bilaterally) Supine Reps: 15 Seated Therapy Exercises: Ankle pumps, Long arc quads Seated Reps: 15 Assessment Patient fatigues with activity. Patient up in recliner with needs met. PT Ice Seller Goals Ice Seller Goals PT Retirement Goals Time Frame: Feb 23, 2021 Roll Left & Right (QC): 5 Sit to Lying (QC): 5 Lying-Sitting on Side/Bed(QC): 5 Sit to Stand (QC): 5 Chair/Pby-yv-Zindz Xfer(QC): 5 Toilet Transfer (QC): 5 Does the Patient Walk: Yes Walk 10 feet (QC): 5 Walk 50ft with 2 Turns (QC): 5 Walk 150 ft (QC): 5 PT Plan Treatment/Plan Treatment Plan: Continue Plan of Care Treatment Plan: Bed Mobility, Education, Functional Activity Molly, Functional Strength, Gait, Safety, Therapeutic Exercise, Transfers Treatment Duration: Feb 23, 2021 Frequency: 11 times per week Estimated Hrs Per Day: .5 hour per day Patient and/or Family Agrees t: Yes Time/GCodes Time In: 725 Time Out: 748 Total Billed Treatment Time: 23 Total Billed Treatment 1 visit EX 13 min FA 10 min SHABBIR HOWARD PT Feb 09, 2021 08:48
[2021-02-09] MEDS: RT-ALBUTEROL/IPRATROPIUM 3 ML (DUONEB) VIAL INH SCH ×3 (10:36→20:10)
--- NOTE | 2021-02-09 11:14 | Progress Note - Hospitalist ---
Subjective HPI/CC On Admission Date Seen by Provider: Feb 09, 2021 Time Seen by Provider: 08:30 Chief complaint: Atrial fibrillation with rapid ventricular response History of present illness: This is an 81-year-old white male who was moved to the ICU urgently due to resistant atrial fibrillation with rapid ventricular r esponse. He was placed on an amiodarone bolus and upon arrival to the ICU he converted back to normal sinus rhythm. He is currently on an amiodarone drip for the next hour and a half. Inpatient rehab will be submitted to his insurance again. Today is his birthday. I do review all of his labs and vital signs and medications. Patient still has not had a bowel movement since 01/31/2021 prior to surgery so initiated Dulcolax suppository and then a soapsuds enema if needed. Subjective/Events-last exam Patient reports feeling better. Bowel movement yesterday was not hard and rojas stool is occult positive he denies melena or bright red blood per rectum. He did not have any difficulty with 2 units of packed cells denies chest pain or shortness of breath just notes fatigue but is feeling better than he did yesterday. Objective Exam Vital Signs Vital Signs Date Time Temp Pulse Resp B/P (MAP) Pulse Ox O2 Delivery O2 Flow Rate FiO2 02/09/21 10:38 92 Nasal Cannula 2.00 02/09/21 09:00 56 10 127/79 (95) 02/09/21 08:02 36.2 02/08/21 16:32 94 Capillary Refill : Less Than 3 Seconds General Appearance: No Apparent Distress, Other (Pale) Respiratory: Chest Non Tender, Lungs Clear, Normal Breath Sounds, No Accessory Muscle Use, No Respiratory Distress Cardiovascular: Regular Rate, Rhythm, No Edema, No Gallop, No JVD, No Murmur, Normal Peripheral Pulses Gastrointestinal: Normal Bowel Sounds, No Organomegaly, No Pulsatile Mass, Non Tender, Soft Extremity: Other (Bilateral buttock ecchymosis 1-2+ edema left leg with significant ecchymosis running down to the level of the ankle extremities warm. ) Results/Procedures Lab Laboratory Tests 02/09/21 03:22 Patient resulted labs reviewed. Assessment/Plan Assessment and Plan Assess & Plan/Chief Complaint 1. New onset atrial fibrillation with rapid ventricular response converted on amiodarone defer to cardiology. We will transfer the patient to the fourth floor on telemetry continuing current medication. 2. Anemia while stools are occult positive there is no evidence for large volume GI bleeding with most of his anemia likely being due to hip fracture. Patient has no known coronary artery disease we will hold aspirin and initiate pantoprazole as he is at increased risk for stress ulceration of the upper GI tract. We will continue to monitor blood counts and continue reduced dose Eliquis 2.5 twice daily today with consideration for increase back to 5 twice daily tomorrow as long as there is no evidence for significant ongoing bleeding. 3. 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 4. Traumatic left intertrochanteric fracture status post gamma nailing. Critical Care Critically Ill Patient ERIK JOHN MD Feb 09, 2021 11:14
[2021-02-09 11:35] VITALS: BP 129/60
[2021-02-09 16:26] VITALS: BP 119/58
--- NOTE | 2021-02-09 17:03 | Progress Note - Cardiology ---
Cardiology SOAP Progress Note Subjective: No shortness of breath No cp or palp or syncope No n/v/d No swelling Gen malaise and weakness Objective: I&O/Vital Signs 02/09/21 02/09/21 02/09/21 02/09/21 06:00 07:00 07:00 08:00 Pulse 60 68 61 75 Resp 22 15 B/P (MAP) 109/59 (76) 102/62 (75) Pulse Ox 94 95 94 O2 Delivery Nasal Cannula Nasal Cannula Room Air O2 Flow Rate 2.00 2.00 02/09/21 02/09/21 02/09/21 02/09/21 08:00 08:02 08:34 09:00 Temp 36.2 Pulse 56 Resp 10 B/P (MAP) 127/79 (95) Pulse Ox 93 92 O2 Delivery Room Air Nasal Cannula Nasal Cannula O2 Flow Rate 2.00 2.00 02/09/21 02/09/21 02/09/21 02/09/21 10:38 11:35 12:42 13:35 Temp 36.5 Pulse 58 58 Resp 18 B/P (MAP) 129/60 (83) Pulse Ox 92 100 O2 Delivery Nasal Cannula Nasal Cannula Nasal Cannula O2 Flow Rate 2.00 2.00 2.00 02/09/21 16:26 Temp 36.1 Pulse 67 Resp 20 B/P (MAP) 119/58 (78) Pulse Ox 98 O2 Delivery Nasal Cannula O2 Flow Rate 1.50 02/09/21 00:00 Intake Total 1050 ml Balance 1050 ml Weight (Pounds): 186 Weight (Calculated Kilograms): 81.039066 Constitutional: AAO x 3, well-developed, well-nourished Respiratory: No accessory muscle use, No respiratory distress; chest expansion is symmetric, chest is bilaterally symmetric, lungs clear to auscultation Cardiovascular: regular rate-rhythm; No JVD; S1 and S2 Gastrointestional: No tender; soft, round, audible bowel sounds Extremities: other (mild to mod LE swelling; L>R) Neurologic/Psychiatric: grossly intact (moves all extremities) Skin: No rash on exposed areas, No ulcerations on exposed areas Results/Procedures: Labs Laboratory Tests 02/09/21 03:22: White Blood Count 12.7H, Red Blood Count 2.51L, Hemoglobin 7.9L, Hematocrit 24L, Mean Corpuscular Volume 95, Mean Corpuscular Hemoglobin 32, Mean Corpuscular Hemoglobin Concent 33, Red Cell Distribution Width 15.1H, Platelet Count 256, Mean Platelet Volume 9.9, Immature Granulocyte % (Auto) 6, Neutrophils (%) (Auto) 71, Lymphocytes (%) (Auto) 10L, Monocytes (%) (Auto) 13H, Eosinophils (%) (Auto) 0, Basophils (%) (Auto) 0, Neutrophils # (Auto) 9.0H, Lymphocytes # (Auto) 1.2, Monocytes # (Auto) 1.6H, Eosinophils # (Auto) 0.1, Basophils # (Auto) 0.0, Immature Granulocyte # (Auto) 0.7H, Sodium Level 137, Potassium Level 3.9, Chloride Level 99, Carbon Dioxide Level 25, Anion Gap 13, Blood Urea Nitrogen 33H, Creatinine 1.55H, Estimat Glomerular Filtration Rate 43, BUN/Creatinine Ratio 21, Glucose Level 102, Calcium Level 8.1L, Phosphorus Level 3.3, Magnesium Level 2.4 Laboratory Tests 02/08/21 03:15 02/09/21 03:22 A/P: Assessment: Paroxysmal atrial fibrillation (new onset this admission) - maintaining SR on Amiodarone OAC with Eliquis [id number] score of 2, yearly risk of stroke without oral anticoagulation is 2.2%. Patient will be started on Eliquis and will monitor as an outpatient. Anemia, persistent after blood transfusions of 02/08/21, stool + for OB - management per [facility] and Medical services Left hip fracture, underwent surgical repair with Dr. Morrison on February 01, 2021 Renal insufficiency, monitor renal function. Plan: Maintaining SR Agree with d/c ASA and reduced dose of apixaban, given marked anemia and stool + for OB Monitor lab closely Replace electrolytes as indicated EPI SMITH MD FACP FAC CCDS Feb 09, 2021 17:03
[2021-02-09 20:02] VITALS: BP 131/62
[2021-02-09] MEDS: polyethylene glycoL POWDER 17 GM (MIRALAX) PACK PO SCH (20:43)
[2021-02-09 23:20] VITALS: BP 128/58
[2021-02-10] MEDS: HYDROcodone/APAP 5 MG/325 MG (LORTAB) TAB PO PRN ×3 (00:46→20:49)
[2021-02-10 04:41] VITALS: BP 121/59
[2021-02-10 04:55] LABS: BASOPHILS % (AUTO) 0 % (0-10); EOSINOPHILS # (AUTO) 0.2 10^3/uL (0.0-0.3); EOSINOPHILS % (AUTO) 2 % (0-10); HEMATOCRIT 25 % (40-54); HEMOGLOBIN 8.2 g/dL (13.3-17.7); LYMPHOCYTES # (AUTO) 1.4 10^3/uL (1.0-4.0); LYMPHOCYTES % (AUTO) 12 % (12-44); MEAN CORPUSCULAR HEMOGLOBIN 32 pg (25-34); MEAN CORPUSCULAR HGB CONC 33 g/dL (32-36); MEAN CORPUSCULAR VOLUME 99 fL (80-99); MEAN PLATELET VOLUME 9.6 fL (9.0-12.2); MONOCYTES # (AUTO) 1.6 10^3/uL (0.0-1.0); MONOCYTES % (AUTO) 14 % (0-12); NEUTROPHILS # (AUTO) 7.3 10^3/uL (1.8-7.8); NEUTROPHILS % (AUTO) 64 % (42-75); PLATELET COUNT 288 10^3/uL (130-400); WHITE BLOOD COUNT 11.4 10^3/uL (4.3-11.0)
[2021-02-10 05:03] LABS: POTASSIUM 4.2 MMOL/L (3.6-5.0)
[2021-02-10 05:04] LABS: CALCIUM 7.9 MG/DL (8.5-10.1)
[2021-02-10 05:08] LABS: CREATININE SERUM 1.49 MG/DL (0.60-1.30)
[2021-02-10] MEDS: RT-ALBUTEROL/IPRATROPIUM 3 ML (DUONEB) VIAL INH SCH ×3 (06:50→19:24)
[2021-02-10 07:45] VITALS: BP 121/76
[2021-02-10] MEDS: meTOprolol TARTRATE 25 MG (LOPRESSOR) TABLET PO SCH ×2 (09:08→20:49)
[2021-02-10] MEDS ORDERED: APIXABAN 2.5 MG (ELIQUIS) TABLET PO SCH (09:08)
[2021-02-10] MEDS: AMIODARONE 200 MG (CORDARONE) TAB PO SCH ×2 (09:09→20:49)
[2021-02-10] MEDS: PANTOPRAZOLE 40 MG (PROTONIX) TAB PO SCH (09:09)
--- NOTE | 2021-02-10 11:24 | Progress Note - Hospitalist ---
Subjective HPI/CC On Admission Date Seen by Provider: Feb 10, 2021 Time Seen by Provider: 09:45 Chief complaint: Atrial fibrillation with rapid ventricular response History of present illness: This is an 81-year-old white male who was moved to the ICU urgently due to resistant atrial fibrillation with rapid ventricular r esponse. He was placed on an amiodarone bolus and upon arrival to the ICU he converted back to normal sinus rhythm. He is currently on an amiodarone drip for the next hour and a half. Inpatient rehab will be submitted to his insurance again. Today is his birthday. I do review all of his labs and vital signs and medications. Patient still has not had a bowel movement since 01/31/2021 prior to surgery so initiated Dulcolax suppository and then a soapsuds enema if needed. Subjective/Events-last exam Feeling much better appetite good no chest discomfort or shortness of breath reported. Objective Exam Vital Signs Vital Signs Date Time Temp Pulse Resp B/P (MAP) Pulse Ox O2 Delivery O2 Flow Rate FiO2 02/10/21 09:07 56 02/10/21 08:00 Nasal Cannula 2.00 02/10/21 07:45 36.3 20 121/76 (91) 97 02/08/21 16:32 94 Capillary Refill : Less Than 3 Seconds General Appearance: No Apparent Distress Respiratory: Chest Non Tender, Lungs Clear, Normal Breath Sounds, No Accessory Muscle Use, No Respiratory Distress Cardiovascular: Regular Rate, Rhythm, No Edema, No Gallop, No JVD, No Murmur, Normal Peripheral Pulses Results/Procedures Lab Laboratory Tests 02/10/21 04:45 Patient resulted labs reviewed. Assessment/Plan Assessment and Plan Assess & Plan/Chief Complaint 1. New onset atrial fibrillation with rapid ventricular response converted on amiodarone defer to cardiology. Patient condition much improved should be ready for transfer back to acute rehab in the morning. 2. Anemia while stools are occult positive there is no evidence for large volume GI bleeding with most of his anemia likely being due to hip fracture. Patient has no known coronary artery disease we Are holding aspirin and continue pantoprazole as he is at increased risk for stress ulceration of the upper GI tract. Blood counts are up with no melena will increase Eliquis back to 5 mg twice daily. 3. 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 4. Traumatic left intertrochanteric fracture status post gamma nailing. Critical Care Critically Ill Patient ERIK JOHN MD Feb 10, 2021 11:24
[2021-02-10 11:52] VITALS: BP 132/64
--- NOTE | 2021-02-10 15:13 | Progress Note - Cardiology ---
Cardiology SOAP Progress Note Subjective: No cp or palp or syncope or shortness of breath at rest Gen malaise and weakness are present No n/v/d Objective: I&O/Vital Signs 02/10/21 02/10/21 02/10/21 02/10/21 04:41 06:50 07:00 07:45 Temp 36.4 36.3 Pulse 57 56 59 Resp 18 20 B/P (MAP) 121/59 (79) 121/76 (91) Pulse Ox 98 98 97 O2 Delivery Nasal Cannula Nasal Cannula Nasal Cannula O2 Flow Rate 1.50 1.00 1.00 02/10/21 02/10/21 02/10/21 02/10/21 08:00 09:07 11:52 12:46 Temp 36.9 Pulse 56 77 74 Resp 20 B/P (MAP) 132/64 (86) Pulse Ox 96 O2 Delivery Nasal Cannula Room Air O2 Flow Rate 2.00 02/10/21 00:00 Intake Total 800 ml Output Total 250 ml Balance 550 ml Weight (Pounds): 186 Weight (Calculated Kilograms): 81.377067 Constitutional: AAO x 3, well-developed, well-nourished Respiratory: No accessory muscle use, No respiratory distress; chest expansion is symmetric, chest is bilaterally symmetric, lungs clear to auscultation Cardiovascular: regular rate-rhythm; No JVD; S1 and S2 Gastrointestional: No tender; soft, round, audible bowel sounds Extremities: other (mild to mod LE swelling; L>R) Neurologic/Psychiatric: grossly intact (moves all extremities) Skin: No rash on exposed areas, No ulcerations on exposed areas Results/Procedures: Labs Laboratory Tests 02/10/21 04:45: White Blood Count 11.4H, Red Blood Count 2.53L, Hemoglobin 8.2L, Hematocrit 25L, Mean Corpuscular Volume 99, Mean Corpuscular Hemoglobin 32, Mean Corpuscular Hemoglobin Concent 33, Red Cell Distribution Width 15.3H, Platelet Count 288, Mean Platelet Volume 9.6, Immature Granulocyte % (Auto) 7, Neutrophils (%) (Auto) 64, Lymphocytes (%) (Auto) 12, Monocytes (%) (Auto) 14H, Eosinophils (%) (Auto) 2, Basophils (%) (Auto) 0, Neutrophils # (Auto) 7.3, Lymphocytes # (Auto) 1.4, Monocytes # (Auto) 1.6H, Eosinophils # (Auto) 0.2, Basophils # (Auto) 0.0, Immature Granulocyte # (Auto) 0.8H, Sodium Level 138, Potassium Level 4.2, Chloride Level 101, Carbon Dioxide Level 27, Anion Gap 10, Blood Urea Nitrogen 29H, Creatinine 1.49H, Estimat Glomerular Filtration Rate 45, BUN/Creatinine Ratio 19, Glucose Level 102, Calcium Level 7.9L Laboratory Tests 02/09/21 03:22 02/10/21 04:45 A/P: Assessment: Paroxysmal atrial fibrillation (new onset this admission) - maintaining SR on Amiodarone OAC with Eliquis [id number] score of 2, yearly risk of stroke without oral anticoagulation is 2.2%. Patient will be started on Eliquis and will monitor as an outpatient. Anemia, persistent after blood transfusions of 02/08/21, stool + for OB - management per [facility] and Medical services Left hip fracture, underwent surgical repair with Dr. Morrison on February 01, 2021 Renal insufficiency, monitor renal function. Plan: Continue to monitor labs closely Replace electrolytes as indicated EPI SMITH MD FACP FACC CCDS Feb 10, 2021 15:13
[2021-02-10 16:12] VITALS: BP 137/73
[2021-02-10 20:10] VITALS: BP 151/70
[2021-02-10] MEDS: APIXABAN 5 MG (ELIQUIS) TABLET PO SCH (20:48)
[2021-02-10] MEDS: polyethylene glycoL POWDER 17 GM (MIRALAX) PACK PO SCH (20:49)
[2021-02-11 00:07] VITALS: BP 114/51
[2021-02-11 04:30] VITALS: BP 130/67
[2021-02-11 06:16] LABS: BASOPHILS % (AUTO) 0 % (0-10); EOSINOPHILS # (AUTO) 0.3 10^3/uL (0.0-0.3); EOSINOPHILS % (AUTO) 3 % (0-10); HEMATOCRIT 26 % (40-54); HEMOGLOBIN 8.4 g/dL (13.3-17.7); LYMPHOCYTES # (AUTO) 1.3 10^3/uL (1.0-4.0); LYMPHOCYTES % (AUTO) 13 % (12-44); MEAN CORPUSCULAR HEMOGLOBIN 32 pg (25-34); MEAN CORPUSCULAR HGB CONC 32 g/dL (32-36); MEAN CORPUSCULAR VOLUME 100 fL (80-99); MEAN PLATELET VOLUME 9.7 fL (9.0-12.2); MONOCYTES # (AUTO) 1.5 10^3/uL (0.0-1.0); MONOCYTES % (AUTO) 14 % (0-12); NEUTROPHILS # (AUTO) 6.7 10^3/uL (1.8-7.8); NEUTROPHILS % (AUTO) 64 % (42-75); PLATELET COUNT 325 10^3/uL (130-400); WHITE BLOOD COUNT 10.5 10^3/uL (4.3-11.0)
[2021-02-11 06:27] LABS: POTASSIUM 4.2 MMOL/L (3.6-5.0)
[2021-02-11 06:30] LABS: TOTAL PROTEIN 5.8 GM/DL (6.4-8.2)
[2021-02-11 06:32] LABS: BILIRUBIN,TOTAL 2.2 MG/DL (0.1-1.0)
[2021-02-11 06:33] LABS: CREATININE SERUM 1.38 MG/DL (0.60-1.30)
[2021-02-11] MEDS: RT-ALBUTEROL/IPRATROPIUM 3 ML (DUONEB) VIAL INH SCH (07:10)
[2021-02-11 08:15] VITALS: BP 141/65
[2021-02-11] MEDS: APIXABAN 5 MG (ELIQUIS) TABLET PO SCH (08:48)
[2021-02-11] MEDS: PANTOPRAZOLE 40 MG (PROTONIX) TAB PO SCH (08:48)
[2021-02-11] MEDS: meTOprolol TARTRATE 25 MG (LOPRESSOR) TABLET PO SCH (08:50)
[2021-02-11] MEDS: AMIODARONE 200 MG (CORDARONE) TAB PO SCH (08:50)
[2021-02-11] MEDS: HYDROcodone/APAP 5 MG/325 MG (LORTAB) TAB PO PRN (10:17)
--- NOTE | 2021-02-11 11:00 | Progress Note ---
Subjective Date Seen by a Provider: Feb 11, 2021 Objective Exam Last Set of Vital Signs Vital Signs Date Time Temp Pulse Resp B/P (MAP) Pulse Ox O2 Delivery O2 Flow Rate FiO2 02/11/21 08:15 36.2 64 18 141/65 (90) 98 Room Air 02/10/21 08:00 2.00 02/08/21 16:32 94 Capillary Refill : Less Than 3 Seconds I&O Intake and Output 02/10/21 23:59 Intake Total 1670 ml Output Total 1150 ml Balance 520 ml Intake Oral 1670 ml Output Urine Total 1150 ml # Voids 6 # Bowel Movements 3 Results Lab Laboratory Tests 02/11/21 06:05: White Blood Count 10.5, Red Blood Count 2.64L, Hemoglobin 8.4L, Hematocrit 26L, Mean Corpuscular Volume 100H, Mean Corpuscular Hemoglobin 32, Mean Corpuscular Hemoglobin Concent 32, Red Cell Distribution Width 15.3H, Platelet Count 325, Mean Platelet Volume 9.7, Immature Granulocyte % (Auto) 7, Neutrophils (%) (Auto) 64, Lymphocytes (%) (Auto) 13, Monocytes (%) (Auto) 14H, Eosinophils (%) (Auto) 3, Basophils (%) (Auto) 0, Neutrophils # (Auto) 6.7, Lymphocytes # (Auto) 1.3, Monocytes # (Auto) 1.5H, Eosinophils # (Auto) 0.3, Basophils # (Auto) 0.0, Immature Granulocyte # (Auto) 0.7H, Sodium Level 139, Potassium Level 4.2, Chloride Level 103, Carbon Dioxide Level 27, Anion Gap 9, Blood Urea Nitrogen 27H, Creatinine 1.38H, Estimat Glomerular Filtration Rate 49, BUN/Creatinine Ratio 20, Glucose Level 101, Calcium Level 8.0L, Corrected Calcium 8.8, Total Bilirubin 2.2H, Aspartate Amino Transf (AST/SGOT) 27, Alanine Aminotransferase (ALT/SGPT) 30, Alkaline Phosphatase 62, Total Protein 5.8L, Albumin 3.0L Assessment/Plan Assessment/Plan Assess & Plan/Chief Complaint Assessment: Atrial fibrillation with rapid ventricular response requiring transfer to the ICU 02/06/21 and discharged from inpatient rehab since less than 3 days of admission Displaced and comminuted intertrochanteric fracture of the left femur status post uncomplicated repair 02/01/21 New onset episode of atrial fibrillation with rapid ventricular rate requiring ICU admission 02/04/21 and Cardizem drip Postop anemia from acute blood loss requiring 2 units of blood Severe postop constipation Plan: Monitor A. fib Appreciate cardiology Inpatient rehab once insurance approves Monitor hemoglobin Anticoagulation per cardiology Aggressive bowel regimen 02/08/2021: Transfuse 2 units Manage pain Monitor closely due to A. fib with RVR recurrent episode x2 APRYL KAMINSKI DO Feb 11, 2021 11:00
--- NOTE | 2021-02-11 11:05 | Physical Therapy Daily Note ---
PT Daily Note-Current Subjective Patient reports increase in anxiety on this date. Agrees to PT. Pain Numeric Pain Scale: 5-Moderate Pain Location: Left Location Body Site: Hip Mental Status Patient Orientation: Normal For Age Transfers SCALE: Activities may be completed with or without assistive devices. 9-Flubcvjlka-brfzizs completes the activity by him/herself with no assistance from a helper. 5-Set-up or Clean-up Assistance-helper sets up or cleans up; patient completes activity. [place] assists only prior to or following the activity. 4-Supervision or Touching Assistance-helper provides verbal cues and/or touching/steadying and/or contact guard assistance as patient completes a ctivity. Assistance may be provided throughout the activity or intermittently. 3-Partial/Moderate Assistance-helper does LESS THAN HALF the effort. [place] lifts, holds or supports trunk or limbs, but provides less than half the effort. 2-Substantial/Maximal Assistance-helper does MORE THAN HALF the effort. [place] lifts or holds trunk or limbs and provides more than half the effort. 3-Mpeyixjru-arsurj does ALL the effort. Patient does none of the effort to complete the activity. Or, the assistance of 2 or more helpers is required for the patient to complete the activity. If activity was not attempted, code reason: 7-Patient Refused. 9-Not Applicable-not attempted and the patient did not perform the activity before the current illness, exacerbation or injury. 10-Not Attempted due to Environmental Limitations-(lack of equipment, weather restraints, etc.). 88-Not Attempted due to Medical Conditions or Safety Concerns. Lying to Sitting/Side of Bed(Q: 4 (SBA) Sit to Stand (QC): 4 (CGA) Chair/Lvh-ej-Emzma Xfer(QC): 4 (CGA) Weight Bearing Right Lower Extremity: Right Full Weight Bearing Left Lower Extremity: Left Touch Toe Bearing Gait Training Does the Patient Walk?: Yes Distance: 125' Walk 10 feet (QC): 4 (CGA) Walk 50 ft with 2 Turns(QC): 4 (CGA) Walk 150 ft (QC): 88 Gait Assistive Device: FWW TTWB left LE with compliance Exercises Supine Ex: Ankle pumps, Quad Set, Heel Slides Supine Reps: 12 Seated Therapy Exercises: Ankle pumps, Long arc quads Seated Reps: 15 Assessment Patient is up in recliner with needs met. PT to increase activity as tolerated by patient. Patient fatigues with minimal activity. PT [facility] Goals [facility] Goals PT [employer] Goals Time Frame: Feb 23, 2021 Roll Left & Right (QC): 5 Sit to Lying (QC): 5 Lying-Sitting on Side/Bed(QC): 5 Sit to Stand (QC): 5 Chair/Vri-af-Ubloc Xfer(QC): 5 Toilet Transfer (QC): 5 Does the Patient Walk: Yes Walk 10 feet (QC): 5 Walk 50ft with 2 Turns (QC): 5 Walk 150 ft (QC): 5 PT Plan Treatment/Plan Treatment Plan: Continue Plan of Care Treatment Plan: Bed Mobility, Education, Functional Activity Molly, Functional Strength, Gait, Safety, Therapeutic Exercise, Transfers Treatment Duration: Feb 23, 2021 Frequency: 11 times per week Estimated Hrs Per Day: .5 hour per day Patient and/or Family Agrees t: Yes Time/GCodes Time In: 845 Time Out: 908 Total Billed Treatment Time: 23 Total Billed Treatment 1 visit EX 14 min GT 9 min SHABBIR HOWARD PT Feb 11, 2021 11:04
--- NOTE | 2021-02-11 11:37 | Occupational Ther Daily Note ---
OT Current Status-Daily Note Subjective Pt alert, sitting in recliner. Pt stated that he was fatigued from PT session, but was able to walk further today. Pt agrees to therapy. Pt stated that he had pain meds and was down to 6/10. Mental Status/Objective Patient Orientation: Person, Place, Time, Situation ADL-Treatment Pt encouraged to use toilet to complete toileting instead of BSC or urinal. Min A for sit to stand from recliner then CGA for safety to ambulate to toilet. Min A to transfer on/off toilet due to height of toilet. Assist to manipulate clothing and cleanse self after toileting. Pt then ambulated to bed, assist with B LE to go from sitting to supine. After session, pt lying in bed with call light/phone in reach. All needs met in room. Therapy Code Descriptions/Definitions Functional [place] Measure: 0=Not Assessed/NA 4=Minimal Assistance 1=Total Assistance 5=Supervision or Setup 2=Maximal Assistance 6=Modified [place] 3=Moderate Assistance 7=Complete IndependenceSCALE: Activities may be completed with or without assistive devices. 6-Tlhwjdrgqr-lijeeqq completes the activity by him/herself with no assistance from a helper. 5-Set-up or Clean-up Assistance-helper sets up or cleans up; patient completes activity. [place] assists only prior to or following the activity. 4-Supervision or Touching Assistance-helper provides verbal cues and/or touching/steadying and/or contact guard assistance as patient completes activity . Assistance may be provided throughout the activity or intermittently. 3-Partial/Moderate Assistance-helper does LESS THAN HALF the effort. [place] lifts, holds or supports trunk or limbs, but provides less than half the effort. 2-Substantial/Maximal Assistance-helper does MORE THAN HALF the effort. [place] lifts or holds trunk or limbs and provides more than half the effort. 0-Kxinkkoqg-cpdwka does ALL the effort. Patient does none of the effort to complete the activity. Or, the assistance of 2 or more helpers is required for the patient to complete the activity. If activity was not attempted, code reason: 7-Patient Refused. 9-Not Applicable-not attempted and the patient did not perform the activity before the current illness, exacerbation or injury. 10-Not Attempted due to Environmental Limitations-(lack of equipment, weather restraints, etc.). 88-Not Attempted due to Medical Conditions or Safety Concerns. Toileting Hygiene (QC): 2 Toilet Transfer (QC): 3 OT [facility] Goals [facility] Goals Time Frame: Feb 22, 2021 Eating (QC): 6 Oral Hygiene (QC): 6 Toileting Hygiene (QC): 4 Shower/Bathe Self (QC): 4 Upper Body Dressing (QC): 5 Lower Body Dressing (QC): 4 On/Off Footwear (QC): 4 Additional Goals: 1-Demonstrate ADL Tasks, 2-Verbalize Understanding, 3- ImproveStrength/Molly 1=Demonstrate adherence to instructed precautions during ADL tasks. 2=Patient will verbalize/demonstrate understanding of assistive devices/modifications for ADL. 3=Patient will improve strength/tolerance for activity to enable patient to perform ADL's. OT Education/Plan Problem List/Assessment Assessment: Decreased Activ Tolerance, Impaired Self-Care Skills Discharge Recommendations Plan/Recommendations: Continue POC Treatment Plan/Plan of Care Patient would benefit from OT for education, treatment and training to promote independence in ADL's, mobility, safety and/or upper extremity function for ADL's. Plan of Care: ADL Retraining, Functional Mobility, UE Funct Exercise/Act Treatment Duration: Feb 22, 2021 Frequency: 5 times per week Estimated Hrs Per Day: .25 hour per day Rehab Potential: Fair Time/GCodes Start Time: 10:50 Stop Time: 11:15 Total Time Billed (hr/min): 25 Billed Treatment Time 1 visit-ADL 2 (25 min) LOREN SHANNON Feb 11, 2021 11:37
[2021-02-11 11:59] VITALS: BP 107/53
--- NOTE | 2021-02-11 12:38 | Progress Note - Cardiology ---
Cardiology SOAP Progress Note Subjective: Shortness of breath with exertion, and malaise present No cp or palp or syncope No n/v/d No focal weakness No swelling Objective: I&O/Vital Signs 02/11/21 02/11/21 02/11/21 02/11/21 01:00 04:30 07:00 07:10 Temp 36.4 Pulse 62 58 53 Resp 22 B/P (MAP) 130/67 (88) Pulse Ox 92 94 O2 Delivery Room Air Room Air 02/11/21 02/11/21 08:15 11:59 Temp 36.2 36.3 Pulse 64 58 Resp 18 18 B/P (MAP) 141/65 (90) 107/53 (71) Pulse Ox 98 94 O2 Delivery Room Air Room Air 02/11/21 00:00 Intake Total 1270 ml Output Total 250 ml Balance 1020 ml Weight (Pounds): 186 Weight (Calculated Kilograms): [id number] Constitutional: AAO x 3, well-developed, well-nourished Respiratory: No accessory muscle use, No respiratory distress; chest expansion is symmetric, chest is bilaterally symmetric, lungs clear to auscultation Cardiovascular: regular rate-rhythm; No JVD; S1 and S2 Gastrointestional: No tender; soft, round, audible bowel sounds Extremities: other (mild to mod LE swelling; L>R) Neurologic/Psychiatric: grossly intact (moves all extremities) Skin: No rash on exposed areas, No ulcerations on exposed areas Results/Procedures: Labs Laboratory Tests 02/11/21 06:05: White Blood Count 10.5, Red Blood Count 2.64L, Hemoglobin 8.4L, Hematocrit 26L, Mean Corpuscular Volume 100H, Mean Corpuscular Hemoglobin 32, Mean Corpuscular Hemoglobin Concent 32, Red Cell Distribution Width 15.3H, Platelet Count 325, Mean Platelet Volume 9.7, Immature Granulocyte % (Auto) 7, Neutrophils (%) (Auto) 64, Lymphocytes (%) (Auto) 13, Monocytes (%) (Auto) 14H, Eosinophils (%) (Auto) 3, Basophils (%) (Auto) 0, Neutrophils # (Auto) 6.7, Lymphocytes # (Auto) 1.3, Monocytes # (Auto) 1.5H, Eosinophils # (Auto) 0.3, Basophils # (Auto) 0.0, Immature Granulocyte # (Auto) 0.7H, Sodium Level 139, Potassium Level 4.2, Chloride Level 103, Carbon Dioxide Level 27, Anion Gap 9, Blood Urea Nitrogen 27H, Creatinine 1.38H, Estimat Glomerular Filtration Rate 49, BUN/Creatinine Ratio 20, Glucose Level 101, Calcium Level 8.0L, Corrected Calcium 8.8, Total Bilirubin 2.2H, Aspartate Amino Transf (AST/SGOT) 27, Alanine Aminotransferase (ALT/SGPT) 30, Alkaline Phosphatase 62, Total Protein 5.8L, Albumin 3.0L Laboratory Tests 02/10/21 04:45 02/11/21 06:05 A/P: Assessment: Paroxysmal atrial fibrillation (new onset this admission) - maintaining SR on Amiodarone OAC with Eliquis [id number] score of 2, yearly risk of stroke without oral anticoagulation is 2.2%. Patient will be started on Eliquis and will monitor as an outpatient. Anemia, persistent after blood transfusions of 02/08/21, stool + for OB - management per Surgical and Medical services Left hip fracture, underwent surgical repair with Dr. Morrison on February 01, 2021 Renal insufficiency, monitor renal function. Plan: Hgb and renal function are stable Continue to monitor labs closely Replace electrolytes as indicated EPI SMITH MD FACP FAC CCDS Feb 11, 2021 12:38
--- NOTE | 2021-02-11 12:58 | Discharge Summary ---
Diagnosis/Chief Complaint Date of Admission Feb 06, 2021 at 12:25 Date of Discharge Discharge Date: Feb 11, 2021 Discharge Diagnosis Assessment: Atrial fibrillation with rapid ventricular response requiring transfer to the ICU 02/06/21 and discharged from inpatient rehab since less than 3 days of admission Displaced and comminuted intertrochanteric fracture of the left femur status post uncomplicated repair 02/01/21 New onset episode of atrial fibrillation with rapid ventricular rate requiring ICU admission 02/04/21 and Cardizem drip Postop anemia from acute blood loss requiring 2 units of blood Severe postop constipation now resolved Plan: Monitor A. fib Appreciate cardiology Inpatient rehab once insurance approves Monitor hemoglobin Anticoagulation per cardiology Aggressive bowel regimen 02/08/2021: Transfuse 2 units Manage pain Monitor closely due to A. fib with RVR recurrent episode x2 Discharge Summary Discharge Physical Examination Allergies: Coded Allergies: No Known Drug Allergies (Unverified , 01/23/12) Vitals & I&Os Vital Signs Date Time Temp Pulse Resp B/P (MAP) Pulse Ox O2 Delivery O2 Flow Rate FiO2 02/11/21 19:00 76 02/11/21 11:59 36.3 18 107/53 (71) 94 Room Air 02/10/21 08:00 2.00 02/08/21 16:32 94 General Appearance: Alert, Oriented X3, Cooperative Respiratory: Clear to Auscultation Cardiovascular: Regular Rate Psych/Mental Status: Mental Status NL Hospital Course Was the Problem List Reviewed?: Yes Hospital Course: Pt had an uneventful but complicated hospital course. When he was admitted for atrial fibrillation with rapid ventricular response requiring amiodarone drip. That resulted in stability with amiodarone drip. He did require two more units of blood due to hemoglobin at 6.7 and discharge hemoglobin was 8.2. White count was 11.4. Creatinine was 1.4. He was deemed stable for discharge to in-patient rehab with close cardiology follow up. Labs (last 24 hrs) Laboratory Tests 02/07/21 02:55: White Blood Count 15.1H, Red Blood Count 2.33L, Hemoglobin 7.4L, Hematocrit 22L, Mean Corpuscular Volume 96, Mean Corpuscular Hemoglobin 32, Mean Corpuscular Hemoglobin Concent 33, Red Cell Distribution Width 14.2, Platelet Count 249, Mean Platelet Volume 10.7, Immature Granulocyte % (Auto) 3, Neutrophils (%) (Auto) 73, Lymphocytes (%) (Auto) 8L, Monocytes (%) (Auto) 16H, Eosinophils (%) (Auto) 0, Basophils (%) (Auto) 0, Neutrophils # (Auto) 11.0H, Lymphocytes # (Auto) 1.1, Monocytes # (Auto) 2.3H, Eosinophils # (Auto) 0.0, Basophils # (Auto) 0.0, Immature Granulocyte # (Auto) 0.5H, Sodium Level 134L, Potassium Level 4.3, Chloride Level 98, Carbon Dioxide Level 24, Anion Gap 12, Blood Urea Nitrogen 25H, Creatinine 1.27, Estimat Glomerular Filtration Rate 54, BUN/Creatinine Ratio 20, Glucose Level 119H, Calcium Level 8.0L, Phosphorus Level 2.9, Magnesium Level 2.1, Total Bilirubin 1.6H, Direct Bilirubin 0.7H, Indirect Bilirubin 0.9, Aspartate Amino Transf (AST/SGOT) 52H, Alanine Aminotransferase (ALT/SGPT) 34, Alkaline Phosphatase 54, Total Protein 6.3L, Albumin 3.1L 02/08/21 03:15: White Blood Count 18.8H, Red Blood Count 2.10L, Hemoglobin 6.7*L, Hematocrit 21L , Mean Corpuscular Volume 99, Mean Corpuscular Hemoglobin 32, Mean Corpuscular Hemoglobin Concent 32, Red Cell Distribution Width 14.2, Platelet Count 253, Mean Platelet Volume 10.5, Immature Granulocyte % (Auto) 3, Neutrophils (%) (Auto) 79H, Lymphocytes (%) (Auto) 5L, Monocytes (%) (Auto) 12, Eosinophils (%) (Auto) 0, Basophils (%) (Auto) 0, Neutrophils # (Auto) 14.8H, Lymphocytes # ( Auto) 1.0, Monocytes # (Auto) 2.3H, Eosinophils # (Auto) 0.0, Basophils # (Auto) 0.0, Immature Granulocyte # (Auto) 0.6H, Sodium Level 132L, Potassium Level 4.4, Chloride Level 96L, Carbon Dioxide Level 23, Anion Gap 13, Blood Urea Nitrogen 33H, Creatinine 1.69H, Estimat Glomerular Filtration Rate 39, BUN/Creatinine Ratio 20, Glucose Level 113H, Calcium Level 8.0L, Phosphorus Level 3.6, Magnesium Level 2.3, Neutrophils % (Manual) 75, Lymphocytes % (Manual) 11, Monocytes % (Manual) 12, Metamyelocytes % 1, Band Neutrophils 1, Blood Morphology Comment NORMAL 02/08/21 15:15: Stool Occult Blood Immunoassay POSITIVEH 02/09/21 03:22: White Blood Count 12.7H, Red Blood Count 2.51L, Hemoglobin 7.9L, Hematocrit 24L, Mean Corpuscular Volume 95, Mean Corpuscular Hemoglobin 32, Mean Corpuscular Hemoglobin Concent 33, Red Cell Distribution Width 15.1H, Platelet Count 256, Mean Platelet Volume 9.9, Immature Granulocyte % (Auto) 6, Neutrophils (%) (Auto) 71, Lymphocytes (%) (Auto) 10L, Monocytes (%) (Auto) 13H, Eosinophils (%) (Auto) 0, Basophils (%) (Auto) 0, Neutrophils # (Auto) 9.0H, Lymphocytes # (Auto) 1.2, Monocytes # (Auto) 1.6H, Eosinophils # (Auto) 0.1, Basophils # (Au to) 0.0, Immature Granulocyte # (Auto) 0.7H, Sodium Level 137, Potassium Level 3.9, Chloride Level 99, Carbon Dioxide Level 25, Anion Gap 13, Blood Urea Nitrogen 33H, Creatinine 1.55H, Estimat Glomerular Filtration Rate 43, BUN/Creatinine Ratio 21, Glucose Level 102, Calcium Level 8.1L, Phosphorus Level 3.3, Magnesium Level 2.4 02/10/21 04:45: White Blood Count 11.4H, Red Blood Count 2.53L, Hemoglobin 8.2L, Hematocrit 25L, Mean Corpuscular Volume 99, Mean Corpuscular Hemoglobin 32, Mean Corpuscular Hemoglobin Concent 33, Red Cell Distribution Width 15.3H, Platelet Count 288, Mean Platelet Volume 9.6, Immature Granulocyte % (Auto) 7, Neutrophils (%) (Auto) 64, Lymphocytes (%) (Auto) 12, Monocytes (%) (Auto) 14H, Eosinophils (%) (Auto) 2, Basophils (%) (Auto) 0, Neutrophils # (Auto) 7.3, Lymphocytes # (Auto) 1.4, Monocytes # (Auto) 1.6H, Eosinophils # (Auto) 0.2, Basophils # (Auto) 0.0, Immature Granulocyte # (Auto) 0.8H, Sodium Level 138, Potassium Level 4.2, Chloride Level 101, Carbon Dioxide Level 27, Anion Gap 10, Blood Urea Nitrogen 29H, Creatinine 1.49H, Estimat Glomerular Filtration Rate 45, BUN/Creatinine Ratio 19, Glucose Level 102, Calcium Level 7.9L 02/11/21 06:05: White Blood Count 10.5, Red Blood Count 2.64L, Hemoglobin 8.4L, Hematocrit 26L, Mean Corpuscular Volume 100H, Mean Corpuscular Hemoglobin 32, Mean Corpuscular Hemoglobin Concent 32, Red Cell Distribution Width 15.3H, Platelet Count 325, Mean Platelet Volume 9.7, Immature Granulocyte % (Auto) 7, Neutrophils (%) (Auto) 64, Lymphocytes (%) (Auto) 13, Monocytes (%) (Auto) 14H, Eosinophils (%) (Auto) 3, Basophils (%) (Auto) 0, Neutrophils # (Auto) 6.7, Lymphocytes # (Auto) 1.3, Monocytes # (Auto) 1.5H, Eosinophils # (Auto) 0.3, Basophils # (Auto) 0.0, Immature Granulocyte # (Auto) 0.7H, Sodium Level 139, Potassium Level 4.2, Chloride Level 103, Carbon Dioxide Level 27, Anion Gap 9, Blood Urea Nitrogen 27H, Creatinine 1.38H, Estimat Glomerular Filtration Rate 49, BUN/Creatinine Ratio 20, Glucose Level 101, Calcium Level 8.0L, Corrected Calcium 8.8, Total Bilirubin 2.2H, Aspartate Amino Transf (AST/SGOT) 27, Alanine Aminotransferase (ALT/SGPT) 30, Alkaline Phosphatase 62, Total Protein 5.8L, Albumin 3.0L 02/11/21 13:47: Lab Scanned Report Transfusion Reaction Form Pending Labs Laboratory Tests 02/07/21 02:55: White Blood Count 15.1, Red Blood Count 2.33, Hemoglobin 7.4, Hematocrit 22, Mean Corpuscular Volume 96, Mean Corpuscular Hemoglobin 32, Mean Corpuscular Hemoglobin Concent 33, Red Cell Distribution Width 14.2, Platelet Count 249, Mean Platelet Volume 10.7, Immature Granulocyte % (Auto) 3, Neutrophils (%) (Auto) 73, Lymphocytes (%) (Auto) 8, Monocytes (%) (Auto) 16, Eosinophils (%) (Auto) 0, Basophils (%) (Auto) 0, Neutrophils # (Auto) 11.0, Lymphocytes # (Auto) 1.1, Monocytes # (Auto) 2.3, Eosinophils # (Auto) 0.0, Basophils # (Auto) 0.0, Immature Granulocyte # (Auto) 0.5, Sodium Level 134, Potassium Level 4.3, Chloride Level 98, Carbon Dioxide Level 24, Anion Gap 12, Blood Urea Nitrogen 25, Creatinine 1.27, Estimat Glomerular Filtration Rate 54, BUN/Creatinine Ratio 20, Glucose Level 119, Calcium Level 8.0, Phosphorus Level 2.9, Magnesium Level 2.1, Total Bilirubin 1.6, Direct Bilirubin 0.7, Indirect Bilirubin 0.9, Aspartate Amino Transf (AST/SGOT) 52, Alanine Aminotransferase (ALT/SGPT) 34, Alkaline Phosphatase 54, Total Protein 6.3, Albumin 3.1 02/08/21 03:15: White Blood Count 18.8, Red Blood Count 2.10, Hemoglobin 6.7, Hematocrit 21, Mean Corpuscular Volume 99, Mean Corpuscular Hemoglobin 32, Mean Corpuscular Hemoglobin Concent 32, Red Cell Distribution Width 14.2, Platelet Count 253, Mean Platelet Volume 10.5, Immature Granulocyte % (Auto) 3, Neutrophils (%) (Auto) 79, Lymphocytes (%) (Auto) 5, Monocytes (%) (Auto) 12, Eosinophils (%) (Auto) 0, Basophils (%) (Auto) 0, Neutrophils # (Auto) 14.8, Lymphocytes # (Auto) 1.0, Monocytes # (Auto) 2.3, Eosinophils # (Auto) 0.0, Basophils # (Auto) 0.0, Immature Granulocyte # (Auto) 0.6, Sodium Level 132, Potassium Level 4.4, Chloride Level 96, Carbon Dioxide Level 23, Anion Gap 13, Blood Urea Nitrogen 33, Creatinine 1.69, Estimat Glomerular Filtration Rate 39, BUN/Creatinine Ratio 20, Glucose Level 113, Calcium Level 8.0, Phosphorus Level 3.6, Magnesium Level 2.3, Neutrophils % (Manual) 75, Lymphocytes % (Manual) 11, Monocytes % (Manual) 12, Metamyelocytes % 1, Band Neutrophils 1, Blood Morphology Comment NORMAL 02/08/21 15:15: Stool Occult Blood Immunoassay POSITIVE 02/09/21 03:22: White Blood Count 12.7, Red Blood Count 2.51, Hemoglobin 7.9, Hematocrit 24, Mean Corpuscular Volume 95, Mean Corpuscular Hemoglobin 32, Mean Corpuscular Hemoglobin Concent 33, Red Cell Distribution Width 15.1, Platelet Count 256, Mean Platelet Volume 9.9, Immature Granulocyte % (Auto) 6, Neutrophils (%) (Aut o) 71, Lymphocytes (%) (Auto) 10, Monocytes (%) (Auto) 13, Eosinophils (%) (Auto) 0, Basophils (%) (Auto) 0, Neutrophils # (Auto) 9.0, Lymphocytes # (Auto) 1.2, Monocytes # (Auto) 1.6, Eosinophils # (Auto) 0.1, Basophils # (Auto) 0.0, Immature Granulocyte # (Auto) 0.7, Sodium Level 137, Potassium Level 3.9, Chloride Level 99, Carbon Dioxide Level 25, Anion Gap 13, Blood Urea Nitrogen 33, Creatinine 1.55, Estimat Glomerular Filtration Rate 43, BUN/Creatinine Ratio 21, Glucose Level 102, Calcium Level 8.1, Phosphorus Level 3.3, Magnesium Level 2.4 02/10/21 04:45: White Blood Count 11.4, Red Blood Count 2.53, Hemoglobin 8.2, Hematocrit 25, Mean Corpuscular Volume 99, Mean Corpuscular Hemoglobin 32, Mean Corpuscular Hemoglobin Concent 33, Red Cell Distribution Width 15.3, Platelet Count 288, Mean Platelet Volume 9.6, Immature Granulocyte % (Auto) 7, Neutrophils (%) ( Auto) 64, Lymphocytes (%) (Auto) 12, Monocytes (%) (Auto) 14, Eosinophils (%) (Auto) 2, Basophils (%) (Auto) 0, Neutrophils # (Auto) 7.3, Lymphocytes # (Auto) 1.4, Monocytes # (Auto) 1.6, Eosinophils # (Auto) 0.2, Basophils # (Auto) 0.0, Immature Granulocyte # (Auto) 0.8, Sodium Level 138, Potassium Level 4.2, Chloride Level 101, Carbon Dioxide Level 27, Anion Gap 10, Blood Urea Nitrogen 29, Creatinine 1.49, Estimat Glomerular Filtration Rate 45, BUN/Creatinine Ratio 19, Glucose Level 102, Calcium Level 7.9 02/11/21 06:05: White Blood Count 10.5, Red Blood Count 2.64, Hemoglobin 8.4, Hematocrit 26, Mean Corpuscular Volume 100, Mean Corpuscular Hemoglobin 32, Mean Corpuscular Hemoglobin Concent 32, Red Cell Distribution Width 15.3, Platelet Count 325, Mean Platelet Volume 9.7, Immature Granulocyte % (Auto) 7, Neutrophils (%) (Auto) 64, Lymphocytes (%) (Auto) 13, Monocytes (%) (Auto) 14, Eosinophils (%) (Auto) 3, Basophils (%) (Auto) 0, Neutrophils # (Auto) 6.7, Lymphocytes # (Auto) 1.3, Monocytes # (Auto) 1.5, Eosinophils # (Auto) 0.3, Basophils # (Auto) 0.0, Immature Granulocyte # (Auto) 0.7, Sodium Level 139, Potassium Level 4.2, Chloride Level 103, Carbon Dioxide Level 27, Anion Gap 9, Blood Urea Nitrogen 27, Creatinine 1.38, Estimat Glomerular Filtration Rate 49, BUN/Creatinine Ratio 20, Glucose Level 101, Calcium Level 8.0, Corrected Calcium 8.8, Total Bilirubin 2.2, Aspartate Amino Transf (AST/SGOT) 27, Alanine Aminotransferase (ALT/SGPT) 30, Alkaline Phosphatase 62, Total Protein 5.8, Albumin 3.0 02/11/21 13:47: Lab Scanned Report Transfusion Reaction Form Discharge Home Medications: Active Scripts Active Reported Vitamin D3 (Cholecalciferol (Vitamin D3)) 125 Mcg Tablet 125 Mcg PO DAILY Mucinex (Guaifenesin) 600 Mg Tab.er.12h 600 Mg PO BID Iprat-Albut 0.5-3(2.5) mg/3 ml (Ipratropium/Albuterol Sulfate) 3 Ml Ampul.neb 3 Ml INH TID Instructions to patient/family Please see electronic discharge instructions given to patient. APRYL KAMINSKI DO Feb 11, 2021 12:57
== END 2021-02-11 13:25 | DRG 309 ==
LOC: ICU 12:25 → 4TH 02-09 11:09
PROVIDERS: ADMIT Internal Medicine; ATTEND Internal Medicine
DX: I48.0 Paroxysmal atrial fibrillation (principal); D62 Acute posthemorrhagic anemia; K59.09 Other constipation; N28.9 Disorder of kidney and ureter, unspecified; J44.9 Chronic obstructive pulmonary disease, unspecified; S72.142D Displaced intertrochanteric fracture of left femur, subsequent encounter for closed fracture with routine healing; Z87.891 Personal history of nicotine dependence
CPT/HCPCS: 36410; 36415; 76937; 80048; 80053; 80076; 82274; 83735; 84100; 85007; 85025; 85027; 86850; 86900; 86901; 86920; 94640; 94760

== ENCOUNTER → 2021-02-06 | Day surgery (SDC) | payer MEDICARE ==
[~2021-02-06] MED LIST changes: +AMIODARONE FOR BOLUS 150 MG in D5W 100 ML IVPB 100 ML IV ONE; +NS IV 500 ML 500 ML IV SCH
[2021-02-06 10:58] VITALS: BP 104/57
[2021-02-06 11:02] VITALS: BP 105/69
== END ==
LOC: CATH 10:54
PROVIDERS: ATTEND Internal Medicine Cardiovascular Disease
DX: Z53.8 Procedure and treatment not carried out for other reasons (principal)

== ENCOUNTER 2021-02-11 12:53 | Inpatient (IN) | payer MEDICARE ==
[~2021-02-11] VITALS: Ht 187.9 cm; Wt 82.0 kg
[2021-02-11] MEDS ORDERED: diphenhydrAMINE 25 MG TAB (BENADRYL) PO PRN ×2 (13:00→15:15)
[2021-02-11] MEDS ORDERED: BISACODYL 10 MG SUPP (DULCOLAX) PR PRN ×2 (13:00→15:15)
[2021-02-11] MEDS ORDERED: DOCUSATE SODIUM 100 MG (COLACE) CAP PO PRN ×2 (13:00→15:15)
[2021-02-11] MEDS ORDERED: ACETAMINOPHEN 325 MG TABLET PO PRN ×2 (13:00→15:15)
[2021-02-11] MEDS ORDERED: HYDROcodone/APAP 5 MG/325 MG (LORTAB) TAB PO PRN (13:00)
[2021-02-11] MEDS ORDERED: MELATONIN 3 MG TABLET PO PRN ×2 (13:00→15:15)
[2021-02-11] MEDS ORDERED: LOPERAMIDE 2 MG (IMODIUM) TABLET PO PRN ×2 (13:00→15:15)
[2021-02-11] MEDS ORDERED: FLEET ENEMA ADULT 1 EA BTL PR PRN ×2 (13:00→15:15)
[2021-02-11] MEDS ORDERED: ONDANSETRON 4 MG (ZOFRAN) ORAL DISSOLVE TAB PO PRN ×2 (13:00→15:15)
[2021-02-11] MEDS ORDERED: ALPRAZolam 0.25 MG (XANAX) TAB PO PRN ×2 (13:00→15:15)
[2021-02-11] MEDS ORDERED: LACTULOSE SYRUP 10GM/15ML (ENULOSE) 30ML UDC PO PRN ×2 (13:00→15:15)
[2021-02-11] MEDS ORDERED: CALCIUM CARBONATE 500 MG (TUMS) TAB.CHEW PO PRN ×2 (13:00→15:15)
[2021-02-11] MEDS ORDERED: guaiFENesin/CODEINE (ROBITUSSIN AC) 10ML UDC PO PRN ×2 (13:00→15:15)
[2021-02-11 14:00] VITALS: BP 143/82
--- NOTE | 2021-02-11 14:31 | Physical Therapy Evaluation ---
PT Evaluation-General Medical Diagnosis Admission Date Feb 11, 2021 at 13:19 Medical Diagnosis: A-fib/left hip fracture Onset Date: Feb 05, 2021 Therapy Diagnosis Therapy Diagnosis: impaired mobility/weakness Height/Weight Height (Feet): 6 Height (Inches): 2.00 Weight (Pounds): 186 Weight Bear Status Right Lower Extremity: Right Full Weight Bearing Left Lower Extremity: Left Touch Toe Bearing Referral Physician: Natalya Reason for Referral: Evaluation/Treatment Medical History Pertinent Medical History: Atrial Fib, Neuropathy Current History New onset A-fib with RVR resulting in ICU transfer. Patient returned to ARU. Reviewed History: Yes Social History Home: Single Level (has basement) Current Living Status: Alone Entry Into Home: Stairs With Railing PT Steps Into Home: 2 Prior Prior Level of Function SCALE: Activities may be completed with or without assistive devices. 8-Ardlconjnk-voxjnhr completes the activity by him/herself with no assistance from a helper. 5-Set-up or Clean-up Assistance-helper sets up or cleans up; patient completes activity. [place] assists only prior to or following the activity. 4-Supervision or Touching Assistance-helper provides verbal cues and/or touching/steadying and/or contact guard assistance as patient completes activity. Assistance may be provided throughout the activity or intermittently. 3-Partial/Moderate Assistance-helper does LESS THAN HALF the effort. [place] lifts, holds or supports trunk or limbs, but provides less than half the effort. 2-Substantial/Maximal Assistance-helper does MORE THAN HALF the effort. [place] lifts or holds trunk or limbs and provides more than half the effort. 5-Twpnruqqo-pzgllo does ALL the effort. Patient does none of the effort to complete the activity. Or, the assistance of 2 or more helpers is required for the patient to complete the activity. If activity was not attempted, code reason: 7-Patient Refused. 9-Not Applicable-not attempted and the patient did not perform the activity before the current illness, exacerbation or injury. 10-Not Attempted due to Environmental Limitations-(lack of equipment, weather restraints, etc.). 88-Not Attempted due to Medical Conditions or Safety Concerns. Bed Mobility: 6 Transfers (B,C,W/C): 6 Gait: 6 Stairs: 6 Wheelchair Mobility: 9 Indoor Mobility (Ambulation): Independent Stairs: Independent Prior Devices Use: None PT Evaluation-Current Subjective Patient in bedf pre tx, agrees to PT, has 6/10 pain in left hip. Will be co- treating with OT for part of tx due to poor patient mobility, strength, endurance, severe pain with activity, coordinate UE and LE during activity. Pain Numeric Pain Scale: 6 Location: Left Location Body Site: Hip Pain Description: Acute Objective Patient Orientation: Normal For Age ROM/Strength ROM Lower Extremities bilateral LE WFL Strength Lower Extremities left knee flexion 3/5; extension 3/5; hip flexion 3-/5; DF/PF 3/5 right knee flexion 3/5; extension 3/5; hip flexion 3/5; DF/PF 3/5 Integumentary/Posture Integumentary refer to nursing notes Bowel Incontinence: No Bladder Incontinence: No Posture slightly kyphotic/cervical flexed posture Neuromuscular (Tone, Coordination, Reflexes) grossly intact Sensory Vision: Wears Glasses Hearing: Functional Sensation Right Lower Extremit: Impaired Sensation Left Lower Extremity: Impaired Transfers Roll Left & Right (QC): 4 (SBA) Sit to Lying (QC): 3 Lying to Sitting/Side of Bed(Q: 3 Sit to Stand (QC): 3 Chair/Kwf-rx-Oyqrl Xfer(QC): 3 Toilet Transfer (QC): 3 Car Transfer (QC): 4 Gait Does the Patient Walk?: Yes Mode of Locomotion: Both Anticipated Mode of Locomotion: Walk Walk 10 feet (QC): 3 Walk 50 ft with 2 Turns(QC): 3 Walk 150 ft (QC): 88 Walking 10ft/uneven surface-QC: 3 Distance: 75' x 1/25' x 3 Gait Assistive Device: FWW Comments/Gait Description slow, antalgic, step to gait sequence Wheelchair Training Does the Pt Use a Wheelchair?: Yes Distance: 10' Wheel 50 ft with 2 turns (QC): 88 Wheel 150 ft (QC): 88 Type of Wheelchair: Manual Stairs #of Steps: 1 1 Step (curb) (QC): 3 4 Steps (QC): 88 12 Steps (QC): 88 Walking Assistive Device: Walker Balance Sitting Static: Normal Sitting Dynamic: Normal Standing Static: Fair Standing Dynamic: Fair Picking up an Object (QC): 4 (in seated position) Treatment PT performed bed mobility and transfers, ambulation, WC mobility, assisted with balance and positioning during ADL's/sock donning, OT performed dressing techn iques and UE positioning and safety during activity. PT bilateral LE exercises in seated position LAQ and AP 15 x 3 sets to improve bilateral LE strength. Assessment/Needs 81 y.o. male, will benefit from skilled PT to address functional strength and mobility to improve current LOF to safely return to home at maximum LOF. Patient currently demonstrates poor endurance with activity and requires multiple recovery periods due to this. Rehab Potential: Fair PT Template Worker Goals Fdc Goals PT Fdc Goals Time Frame: Mar 09, 2021 Roll Left & Right (QC): 5 Sit to Lying (QC): 5 Lying-Sitting on Side/Bed(QC): 5 Sit to Stand (QC): 5 Chair/Mnw-vv-Vwhsp Xfer(QC): 5 Toilet Transfer (QC): 5 Car Transfer (QC): 5 Does the Patient Walk: Yes Walk 10 feet (QC): 5 Walk 50ft with 2 Turns (QC): 5 Walk 150 ft (QC): 5 Walking 10ft on Uneven Surface: 5 1 Step (curb) (QC): 5 4 Steps (QC): 5 12 Steps (QC): 88 Picking up an Object (QC): 5 Wheel 50 feet with 2 turns (QC: 9 Type: N/A Wheel 150 feet: 9 Type: N/A PT Plan Problem List Problem List: Activity Tolerance, Functional Strength, Safety, Balance, Gait, Transfer, Bed Mobility Treatment/Plan Treatment Plan: Continue Plan of Care Treatment Plan: Bed Mobility, Concurrent Therapy, Education, Functional Activity Molly, Functional Strength, Group Therapy, Gait, Safety, Therapeutic Exercise, Transfers Treatment Duration: Mar 09, 2021 Frequency: At least 5 of 7 days/Wk (IRF) Estimated Hrs Per Day: 1.5 hours per day Patient and/or Family Agrees t: Yes Safety Risks/Education Patient Education: Gait Training, Transfer Techniques, Steps, Safety Issues Teaching Recipient: Patient Teaching Methods: Demonstration, Discussion Response to Teaching: Verbalize Understanding, Return Demonstration Time/GCodes Time In: 1315 Time Out: 1420 Total Billed Treatment Time: 55 Total Billed Treatment 1 visit EVModC 10 min ([id number]) (OT eval [id number]) FA x 3 45 min ([place] with OT [id number]) SHABBIR HOWARD PT Feb 11, 2021 14:31
--- NOTE | 2021-02-11 15:00 | Physical Therapy Daily Note ---
PT Daily Note-Current Subjective Pt. agreeable to co Rx with OT. Pt. shares his recent medical issues as well as his quest to eat right and be healthy at home sharing what he usually at and his exercise routine. Pt. having had hydroc per nursing and now c/o very sleepy and really want to lay down to rest when possible Pain Location: No Pain Reported Mental Status Patient Orientation: Normal For Age Transfers SCALE: Activities may be completed with or without assistive devices. 3-Mtvcfxhtmq-toxmxus completes the activity by him/herself with no assistance from a helper. 5-Set-up or Clean-up Assistance-helper sets up or cleans up; patient completes activity. [place] assists only prior to or following the activity. 4-Supervision or Touching Assistance-helper provides verbal cues and/or touching/steadying and/or contact guard assistance as patient completes act ivity. Assistance may be provided throughout the activity or intermittently. 3-Partial/Moderate Assistance-helper does LESS THAN HALF the effort. [place] lifts, holds or supports trunk or limbs, but provides less than half the effort. 2-Substantial/Maximal Assistance-helper does MORE THAN HALF the effort. [place] lifts or holds trunk or limbs and provides more than half the effort. 5-Tsftwymbm-hqnior does ALL the effort. Patient does none of the effort to complete the activity. Or, the assistance of 2 or more helpers is required for the patient to complete the activity. If activity was not attempted, code reason: 7-Patient Refused. 9-Not Applicable-not attempted and the patient did not perform the activity before the current illness, exacerbation or injury. 10-Not Attempted due to Environmental Limitations-(lack of equipment, weather restraints, etc.). 88-Not Attempted due to Medical Conditions or Safety Concerns. Sit to Lying (QC): 3 Sit to Stand (QC): 4 Chair/Lio-kc-Fenod Xfer(QC): 4 Weight Bearing Right Lower Extremity: Right Full Weight Bearing Left Lower Extremity: Left Touch Toe Bearing Gait Training Does the Patient Walk?: Yes Gait Assistive Device: FWW 25 feet inside room recliner to bed CGA, good use of device Exercises Supine Ex: Ankle pumps, Quad Set, Glut sets Supine Reps: 15 Seated Therapy Exercises: Ankle pumps, Sit to stand, Long arc quads, Hip abd/add Seated Reps: 15 Treatments co with OT for U&L ext exercise session incorporating home safety education and ARU expectations education. AFter Rx pt. in bed with mod assist , neck roll applied as requested and call jeff at hand Assessment Current Status: Good Progress PT Chcf Goals Chcf Goals PT Chcf Goals Time Frame: Mar 09, 2021 Roll Left & Right (QC): 5 Sit to Lying (QC): 5 Lying-Sitting on Side/Bed(QC): 5 Sit to Stand (QC): 5 Chair/Saa-xd-Vlcob Xfer(QC): 5 Toilet Transfer (QC): 5 Car Transfer (QC): 5 Does the Patient Walk: Yes Walk 10 feet (QC): 5 Walk 50ft with 2 Turns (QC): 5 Walk 150 ft (QC): 5 Walking 10ft on Uneven Surface: 5 1 Step (curb) (QC): 5 4 Steps (QC): 5 12 Steps (QC): 88 Picking up an Object (QC): 5 Wheel 50 feet with 2 turns (QC: 9 Type: N/A Wheel 150 feet: 9 Type: N/A PT Plan Treatment/Plan Treatment Plan: Continue Plan of Care Treatment Plan: Bed Mobility, Concurrent Therapy, Education, Functional Activity Molly, Functional Strength, Group Therapy, Gait, Safety, Therapeutic Exercise, Transfers Treatment Duration: Mar 09, 2021 Frequency: At least 5 of 7 days/Wk (IRF) Estimated Hrs Per Day: 1.5 hours per day Patient and/or Family Agrees t: Yes Safety Risks/Education Patient Education: Gait Training, Transfer Techniques, Correct Positioning, Disease Process, Safety Issues Teaching Recipient: Patient Teaching Methods: Demonstration, Discussion Response to Teaching: Verbalize Understanding, Return Demonstration, Reinforcement Needed Time/GCodes Time In: 1420 Time Out: 1455 Total Billed Treatment Time: 35 Total Billed Treatment 1,FA20m,EX15m SHYANNE HICKS DEPOSITION REPORTER Feb 11, 2021 15:00
[2021-02-11] MEDS ORDERED: ONDANSETRON 4 MG/2 ML (SDV) Z0FRAN IVP PRN (15:15)
[2021-02-11] MEDS ORDERED: CATHETER FLUSH 10 ML SYR IV PRN (15:15)
[2021-02-11] MEDS ORDERED: SENNA W/DOCUSATE (SENOKOT S) TABLET PO PRN (15:15)
[2021-02-11] MEDS ORDERED: guaiFENesin (MUCINEX) 600 MG TAB PO PRN (15:15)
--- NOTE | 2021-02-11 15:51 | Occupational Therapy Eval ---
OT Evaluation-General/PLF Medical Diagnosis Admission Date Feb 11, 2021 at 13:19 Medical Diagnosis: A-fib/left hip fracture/IM nail Onset Date: Feb 05, 2021 Therapy Diagnosis Therapy Diagnosis: Weakness, Decreased ADL skills Height/Weight Height (Feet): 6 Height (Inches): 2.00 Weight (Pounds): 186 Precautions Precautions/Isolations: Fall Prevention, Standard Precautions Weight Bear Status Weight Bearing Restriction: Touch Toe Bearing Location Restriction: L MAHESH Referral Physician: Natalya Referral Reason: Activity Tolerance, Self Care, Evaluation/Treatment, Strengthening/ROM Medical History Pertinent Medical History: Atrial Fib, Neuropathy Current History Pt. fell at home. Sustained a hip fx. Underwent IM nailing. Pt. currently TTWB. Reviewed History: Yes Social History Home: Single Level (has basement) Current Living Status: Alone Entry Into Home: Stairs With Railing Steps Into Home: 2 ADL-Prior Level of Function SCALE: Activities may be completed with or without assistive devices. 2-Milmjvpntf-dflvuqk completes the activity by him/herself with no assistance from a helper. 5-Set-up or Clean-up Assistance-helper sets up or cleans up; patient completes activity. [place] assists only prior to or following the activity. 4-Supervision or Touching Assistance-helper provides verbal cues and/or touching/steadying and/or contact guard assistance as patient completes activity. Assistance may be provided throughout the activity or intermittently. 3-Partial/Moderate Assistance-helper does LESS THAN HALF the effort. [place] lifts, holds or supports trunk or limbs, but provides less than half the effort. 2-Substantial/Maximal Assistance-helper does MORE THAN HALF the effort. [place] lifts or holds trunk or limbs and provides more than half the effort. 9-Eukvrxutg-epsqvs does ALL the effort. Patient does none of the effort to complete the activity. Or, the assistance of 2 or more helpers is required for the patient to complete the activity. If activity was not attempted, code reason: 7-Patient Refused. 9-Not Applicable-not attempted and the patient did not perform the activity before the current illness, exacerbation or injury. 10-Not Attempted due to Environmental Limitations-(lack of equipment, weather restraints, etc.). 88-Not Attempted due to Medical Conditions or Safety Concerns. ADL PLOF Comments Pt. was independent with daily skills prior. Pt. does not typically use walker. Self Care: Independent Functional Cognition: Unknown DME/Equipment: Grab Bars, Shower Drive Self: Yes OT Current Status Subjective Pt. reports 6/10 pain in left LE. Nursing gives pain medication. Mental Status/Objective Patient Orientation: Person, Place Current Glasses/Contacts: Yes Hand Dominance: Right Upper Extremity ROM WFL Upper Extremity Strength 4/5 bilateral UE strength. ADL-Treatment Eating (QC): 6 Oral Hygiene (QC): 7 Shower/Bathe Self (QC): 7 Upper Body Dressing (QC): 88 Lower Body Dressing (QC): 2 (Per clinical judgement) On/Off Footwear (QC): 3 (Mod assist without AE. Pt issued and educated on use of AE, and is able to use with min assist to doff/don slipper socks.) Toileting Hygiene (QC): 2 Other Treatments Pt. seen for co-treatment with PT due to fatigue from being seen earlier in day on acute care floor. OT facilitated further ADL skills and adaptive equipment training, as well as UE strength training, while PT facilitated mobility skills, and transfer training. Pt's mobility assessed, as well as LE ROM/strength. OT brought in sock aide, dressing stick, and embossing machine tender, and pt practiced with this for slipper socks and LE dressing. Pt. able to stand at walker with min/mod assist and ambulate with wheelchair follow. Multiple rest breaks needed and i ncreased time in between each activity. Pt. tolerated treatment well and transferred to bed at end of session. All needs met. Education OT Patient Education: Correct positioning, Modified ADL techniques, Progress toward Goal/Update tx plan, Purpose of tx/functional activities, Reviewed precautions, Rehab process, Transfer techniques, Use of adapted equipment Teaching Recipient: Patient Teaching Methods: Demonstration, Discussion Response to Teaching: Verbalize Understanding, Return Demonstration, Reinforcement Needed OT Short Term Goals Short Term Goals Time Frame: Feb 18, 2021 Eatin Oral hygiene: 5 Toileting hygiene: 4 Shower/bathe self: 3 Upper body dressin Lower body dressin Putting on/taking off footwear: 4 OT Manager Marketing Goals Manager Marketing Goals Time Frame: Feb 25, 2021 Eating (QC): 6 Oral Hygiene (QC): 6 Toileting Hygiene (QC): 6 Shower/Bathe Self (QC): 4 Upper Body Dressing (QC): 5 Lower Body Dressing (QC): 4 On/Off Footwear (QC): 6 Additional Goals: 1-Demonstrate ADL Tasks, 2-Verbalize Understanding, 3- ImproveStrength/Molly 1=Demonstrate adherence to instructed precautions during ADL tasks. 2=Patient will verbalize/demonstrate understanding of assistive devices/modifications for ADL. 3=Patient will improve strength/tolerance for activity to enable patient to perform ADL's. OT Education/Plan Problem List/Assessment Assessment: Decreased Activ Tolerance, Impaired I ADL's, Impaired Self-Care Skills Discharge Recommendations Plan/Recommendations: Continue POC Therapy Discharge Recommendati: Post Acute OT Equpiment Recommendations-D/C: Hip Kit Treatment Plan/Plan of Care Treatment,Training & Education: Yes Patient would benefit from OT for education, treatment and training to promote independence in ADL's, mobility, safety and/or upper extremity function for ADL's. Plan of Care: ADL Retraining, Functional Mobility, UE Funct Exercise/Act Treatment Duration: Feb 25, 2021 Frequency: At least 5 of 7 days/Wk (IRF) Estimated Hrs Per Day: 1.5 hours per day Agreement: Yes Rehab Potential: Good Time/GCodes Start Time: 13:25 Stop Time: 14:55 Total Time Billed (hr/min): 90 Billed Treatment Time 7638-4610 1, EVM x 10minutes 3720-2273 ADL x 30minutes, FA x 50minutes JOCELYNE MADRIGAL OT Feb 11, 2021 15:50
--- NOTE | 2021-02-11 17:58 | PM&R Post Admission Assessment ---
PM&R HP Date of Visit: Feb 11, 2021 Time of Visit: 18:15 History of Present Illness Chief complaint: Recovery following left hip fracture and atrial fibrillation with rapid ventricular response x2 new onset History of present illness: This is an 81-year-old white male with former excellent health who presents to inpatient rehab in need of intensive therapy in order to regain function for independent living. Patient was originally admitted to inpatient rehab a few days after hip fracture repair and new onset atrial fibrillation requiring ICU transfer but he stabilized on antiarrhythmics but once again had to be moved up to the ICU the second day of inpatient rehab admission due to atrial fibrillation with rapid ventricular response. He is now on amiodarone and doing very well. He has required a total of 4 units of packed red blood cells. Bowel function has returned back to normal. Patient reports pain is controlled with pain medication. Past Qhcvmjx-Vhxjkm-Xeyorq Hx Past Med/Social Hx: Reviewed Nursing Past Med/Soc Hx, Reviewed and Corrections made Patient Social History Marrital Status: Employed/Student: retired Alcohol Use: Occasionally Uses Alcohol Beverage of Choice: Wine Smoking Status: Former Smoker Former Smoker, Quit: Jan 31, 1999 2nd Hand Smoke Exposure: No Recent Hopitalizations: Yes Past Medical History Surgeries: Orthopedic Currently Using CPAP: No Currently Using BIPAP: No Cardiac: Atrial Fibrillation Reproductive: No History of Blood Disorders: No Prior Level of Function Bed Mobility: 6 Transfers: 6 Gait: 6 Stairs: 6 Wheelchair Mobility: 9 Indoor Mobility (Ambulation): Independent Stairs: Independent Prior Devices Use: None Self Care: Independent Functional Cognition: Unknown 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 Drive Self: Yes Current Level of Fuctioning Roll Left to Right: 4 (SBA) Sit to Lyin Lying to Sitting/Side of Bed: 3 Sit to Stand: 4 Chair/Xkl-vk-Mmhyu Xfer: 4 Car Transfer: 4 Does the Patient Walk: Yes Mode of Locomotion: Both Anticipated Mode of Locomotion: Walk Walk 10 feet: 3 Walk 50 ft with 2 Turns: 3 Walk 150 ft: 88 Walking 10ft on uneven surface: 3 Gait Assistive Device: FWW Does the Pt Use a Wheelchair: Yes Wheelchair Distance: 10' Wheel 50 ft with 2 turns: 88 Wheel 150 ft: 88 Type of Wheelchair: Manual #of Steps: 1 1 Step (curb): 3 4 Steps: 88 Walking Assistive Device: Walker 12 Steps: 88 Picking up an Object: 4 (in seated position) Eatin Oral Hygiene: 7 Shower/Bathe Self: 7 Upper Body Dressin Lower Body Dressin (Per clinical judgement) On/Off Footwear: 3 (Mod assist without AE. Pt issued and educated on use of AE, and is able to use with min assist to doff/don slipper socks.) Toileting Hygiene: 2 PM&R Allergy/Meds/Data Review Allergies Coded Allergies: No Known Drug Allergies (Unverified , 01/23/12) Home Medications Scheduled Cholecalciferol (Vitamin D3) (Vitamin D3), 125 MCG PO DAILY, (Reported) Guaifenesin (Mucinex), 600 MG PO BID, (Reported) Ipratropium/Albuterol Sulfate (Iprat-Albut 0.5-3(2.5) mg/3 ml), 3 ML INH TID, (Reported) Current Medications Current Medications Reviewed Review of Systems Constitutional: see HPI, malaise, weakness EENTM: no symptoms reported Respiratory: no symptoms reported Cardiovascular: no symptoms reported Gastrointestinal: no symptoms reported Genitourinary: no symptoms reported Musculoskeletal: back pain, joint pain Skin: no symptoms reported Psychiatric/Neurological: Depressed All Other Systems Reviewed Negative Unless Noted: Yes Physical Exam Physical Exam Vital Signs Capillary Refill : Height, Weight, BMI Height: 6'2.00" Weight: 186lbs. oz. 81.726461pi; 25.49 BMI Method: General Appearance: No Apparent Distress, WD/WN, Chronically ill Eyes: Bilateral Eye Normal Inspection, Bilateral Eye PERRL HEENT: PERRL/EOMI, Normal ENT Inspection, Pharynx Normal Neck: Full Range of Motion, Normal Inspection, Non Tender, Supple, Carotid Bruit Respiratory: Chest Non Tender, Lungs Clear, Normal Breath Sounds, No Accessory Muscle Use, No Respiratory Distress Cardiovascular: Regular Rate, Rhythm, No Edema, No Gallop, No JVD, No Murmur, Normal Peripheral Pulses Gastrointestinal: Normal Bowel Sounds, No Organomegaly, No Pulsatile Mass, Non Tender, Soft Back: Normal Inspection, No CVA Tenderness, No Vertebral Tenderness Extremity: Normal Capillary Refill, Normal Inspection, Normal Range of Motion, Non Tender, No Calf Tenderness, No Pedal Edema Neurologic/Psychiatric: Alert, Oriented x3, No Motor/Sensory Deficits, 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 as Tested, Abnormal Gait, Depressed Affect, Motor Weakness (Left leg) Skin: Normal Color, Warm/Dry Lymphatic: No Adenopathy PM&R Medical Assessment & Plan REHAB/MEDICAL ASSESSMENT AND PLAN: REHAB IMPAIRMENT GROUP: Left hip fracture atrial fibrillation with rapid ventricular response new onset x2 ETIOLOGIC DIAGNOSIS: Left hip fracture atrial fibrillation with rapid ventricular response new onset x2 The comorbidities that impact the patients function and/or functional outcome by: New onset atrial fibrillation with RVR x2, severe anemia requiring 4 units of blood, severe debility REHAB PLAN: The patient is being admitted to our comprehensive inpatient rehabilitation facility and can tolerate the intensity of service consisting of at least: 180 minutes of therapy a day, 5 out of 7 days a week Rehab treatment will consist of: PT and OT will focus on regaining function of the left leg while providing fall risk prevention techniques in order to return back to independent living The patient/family has a good understanding of our discharge process and will benefit from an interdisciplinary inpatient rehabilitation program. The patient has potential to make improvement and is in need of at least two of the following multidisciplinary therapies including but not limited to physical, occupational, speech, and prosthetics and orthotics. Additionally the patient will need services from respiratory, nutritional services, wound care, psychology, etc. (Customize this to each patient). Given the patients complex condition and risk of further medical complications, rehabilitation services cannot be safely or effectively provided at a lower level of care such as a halfway facility. BARRIERS TO DISCHARGE: Atrial fibrillation with rapid ventricular response new onset x2 ESTIMATED LOS: 10 days DISPOSITION: Home RELEVANT CHANGES SINCE PREADMISSION SCREENING: I have compared the patients medical and functional status at the time of the preadmission screening and there are: no changes PROGNOSIS: Good REHABILITATION GOALS: 1. PT and OT will focus on regaining function of the left leg while providing fall risk prevention techniques in order to return back to independent living All the above goals were reviewed with the patient and he/she is in agreement. By signing this document, I acknowledge that I have personally performed a full physical examination on this patient within 24 hours of admission to this inpatient rehabilitation facility and have determined the patient to be able to tolerate the above course of treatment at an intensive level for a reasonable period of time. I will be completing a detailed individualized Plan of Care for this patient by day #4 of the patients stay based upon the Preadmission Screen, the Post-Admission Evaluation, and the therapy evaluations. Admission Dx/Comorbidities: (1) Intertrochanteric fracture of left femur Status: Acute ICD Codes: S72.142A - Displaced intertrochanteric fracture of left femur, initial encounter for closed fracture (2) Atrial fibrillation with RVR Status: Acute ICD Codes: I48.91 - Unspecified atrial fibrillation (3) MERVIN (acute kidney injury) Status: Acute ICD Codes: N17.9 - Acute kidney failure, unspecified (4) Postoperative anemia Status: Acute ICD Codes: D64.9 - Anemia, unspecified Assessment/Plan Assessment and Plan Assess & Plan/Chief Complaint Assessment: Severe debility due to left hip fracture Atrial fibrillation with rapid ventricular response requiring transfer to the ICU 02/06/21 and discharged from inpatient rehab since less than 3 days of admission Displaced and comminuted intertrochanteric fracture of the left femur status post uncomplicated repair 02/01/21 status post repair by Dr. BERNAL New onset episode of atrial fibrillation with rapid ventricular rate requiring ICU admission 02/04/21 and Cardizem drip Postop anemia from acute blood loss requiring 4 units of blood in total Severe postop constipation now resolved Plan: Inpatient rehab protocol Pain control Monitor hemoglobin Monitor atrial fibrillation Appreciate cardiology consultation APRYL KAMINSKI DO Feb 11, 2021 17:58
[2021-02-11 20:00] VITALS: BP 110/58
[2021-02-11] MEDS: RT-ALBUTEROL/IPRATROPIUM 3 ML (DUONEB) VIAL INH SCH (20:34)
[2021-02-11] MEDS ORDERED: polyethylene glycoL POWDER 17 GM (MIRALAX) PACK PO SCH (21:00)
[2021-02-11] MEDS: AMIODARONE 200 MG (CORDARONE) TAB PO SCH (21:21)
[2021-02-11] MEDS: APIXABAN 5 MG (ELIQUIS) TABLET PO SCH (21:21)
[2021-02-11] MEDS: SENNA W/DOCUSATE (SENOKOT S) TABLET PO SCH (21:21)
[2021-02-11] MEDS: meTOprolol TARTRATE 25 MG (LOPRESSOR) TABLET PO SCH (21:21)
[2021-02-11] MEDS: DOCUSATE SODIUM 100 MG (COLACE) CAP PO SCH (21:22)
[2021-02-11] MEDS: polyethylene glycoL POWDER 17 GM (MIRALAX) PACK PO SCH (21:23)
[2021-02-11] MEDS: HYDROcodone/APAP 5 MG/325 MG (LORTAB) TAB PO PRN (22:42)
[2021-02-12 05:13] LABS: BASOPHILS % (AUTO) 0 % (0-10); EOSINOPHILS # (AUTO) 0.3 10^3/uL (0.0-0.3); EOSINOPHILS % (AUTO) 3 % (0-10); HEMATOCRIT 28 % (40-54); LYMPHOCYTES # (AUTO) 1.3 10^3/uL (1.0-4.0); LYMPHOCYTES % (AUTO) 14 % (12-44); MEAN CORPUSCULAR HEMOGLOBIN 32 pg (25-34); MEAN CORPUSCULAR HGB CONC 32 g/dL (32-36); MEAN CORPUSCULAR VOLUME 101 fL (80-99); MEAN PLATELET VOLUME 9.7 fL (9.0-12.2); MONOCYTES # (AUTO) 1.2 10^3/uL (0.0-1.0); MONOCYTES % (AUTO) 13 % (0-12); NEUTROPHILS # (AUTO) 5.9 10^3/uL (1.8-7.8); NEUTROPHILS % (AUTO) 63 % (42-75); PLATELET COUNT 339 10^3/uL (130-400); WHITE BLOOD COUNT 9.5 10^3/uL (4.3-11.0)
[2021-02-12 05:25] LABS: ALBUMIN 3.1 GM/DL (3.2-4.5)
[2021-02-12 05:26] LABS: POTASSIUM 4.3 MMOL/L (3.6-5.0)
[2021-02-12 05:27] LABS: CALCIUM 8.3 MG/DL (8.5-10.1)
[2021-02-12 05:28] LABS: TOTAL PROTEIN 5.9 GM/DL (6.4-8.2)
[2021-02-12 05:30] LABS: BILIRUBIN,TOTAL 2.1 MG/DL (0.1-1.0)
[2021-02-12 05:32] LABS: CREATININE SERUM 1.41 MG/DL (0.60-1.30)
--- NOTE | 2021-02-12 06:41 | PM&R Progress Note ---
Subjective HPI/CC On Admission Date Seen by Provider: Feb 12, 2021 Time Seen by Provider: 10:00 Subjective/Events-last exam 02/12/2021: Pt doing pretty well Had a bowel movement today Hemoglobin 9.0 IV iron will be restarted Creatinine at 1.41, will monitor that closely A fib is well controlled Review of Systems General: Fatigue, Malaise Pulmonary: Dyspnea Musculoskeletal: leg pain Objective Exam Vital Signs Vital Signs Date Time Temp Pulse Resp B/P (MAP) Pulse Ox O2 Delivery O2 Flow Rate FiO2 02/13/21 01:00 61 02/12/21 20:40 91 Room Air 02/12/21 20:06 108/55 (72) 02/12/21 19:25 36.7 18 Capillary Refill : General Appearance: No Apparent Distress, WD/WN, Chronically ill HEENT: PERRL/EOMI, Normal ENT Inspection, Pharynx Normal Neck: Full Range of Motion, Normal Inspection, Non Tender, Supple, Carotid Bruit Respiratory: Chest Non Tender, Lungs Clear, Normal Breath Sounds, No Accessory Muscle Use, No Respiratory Distress Cardiovascular: Regular Rate, Rhythm, No Edema, No Gallop, No JVD, No Murmur, Normal Peripheral Pulses Gastrointestinal: Normal Bowel Sounds, No Organomegaly, No Pulsatile Mass, Non Tender, Soft Back: Normal Inspection, No CVA Tenderness, No Vertebral Tenderness Extremity: Normal Capillary Refill, Normal Inspection, Normal Range of Motion, Non Tender, No Calf Tenderness, No Pedal Edema Neurologic/Psychiatric: Alert, Oriented x3, No Motor/Sensory 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 FIM Transfers Therapy Code Descriptions/Definitions Functional [place] Measure: 0=Not Assessed/NA 4=Minimal Assistance 1=Total Assistance 5=Supervision or Setup 2=Maximal Assistance 6=Modified [place] 3=Moderate Assistance 7=Complete IndependenceSCALE: Activities may be completed with or without assistive devices. 4-Qjmuvtcjrv-mevcuvw completes the activity by him/herself with no assistance from a helper. 5-Set-up or Clean-up Assistance-helper sets up or cleans up; patient completes activity. [place] assists only prior to or following the activity. 4-Supervision or Touching Assistance-helper provides verbal cues and/or touching/steadying and/or contact guard assistance as patient completes activity. Assistance may be provided throughout the activity or intermittently. 3-Partial/Moderate Assistance-helper does LESS THAN HALF the effort. [place] lifts, holds or supports trunk or limbs, but provides less than half the effort. 2-Substantial/Maximal Assistance-helper does MORE THAN HALF the effort. [place] lifts or holds trunk or limbs and provides more than half the effort. 1-Mnhsqdsqd-kdwqcu does ALL the effort. Patient does none of the effort to complete the activity. Or, the assistance of 2 or more helpers is required for the patient to complete the activity. If activity was not attempted, code reason: 7-Patient Refused. 9-Not Applicable-not attempted and the patient did not perform the activity before the current illness, exacerbation or injury. 10-Not Attempted due to Environmental Limitations-(lack of equipment, weather restraints, etc.). 88-Not Attempted due to Medical Conditions or Safety Concerns. Roll Left to Right (QC): 4 (SBA) Sit to Lying (QC): 3 Sit to Stand (QC): 4 Chair/Esv-aa-Pmrrg Xfer(QC): 4 Car Transfer (QC): 4 Gait Training Does the Patient Walk?: Yes Walk 10 feet (QC): 3 Walk 50 ft with 2 Turns(QC): 3 Walk 150 ft (QC): 88 Walking 10ft/uneven surface-QC: 3 Gait Assistive Device: FWW Wheelchair Training Does the Pt Use a Wheelchair?: Yes Distance: 10' Wheel 50 ft with 2 turns (QC): 88 Wheel 150 ft (QC): 88 Type of Wheelchair: Manual Stair Training #of Steps: 1 1 Step (curb) (QC): 3 4 Steps (QC): 88 12 Steps (QC): 88 Balance Picking up an Object (QC): 4 (in seated position) ADL-Treatment Eating (QC): 6 Oral Hygiene (QC): 7 Shower/Bathe Self (QC): 7 Upper Body Dressing (QC): 88 Lower Body Dressing (QC): 2 (Per clinical judgement) On/Off Footwear (QC): 3 (Mod assist without AE. Pt issued and educated on use of AE, and is able to use with min assist to doff/don slipper socks.) Toileting Hygiene (QC): 2 Assessment/Plan Assessment and Plan Assess & Plan/Chief Complaint Assessment: Severe debility due to left hip fracture Atrial fibrillation with rapid ventricular response requiring transfer to the ICU 02/06/21 and discharged from inpatient rehab since less than 3 days of admission Displaced and comminuted intertrochanteric fracture of the left femur status post uncomplicated repair 02/01/21 status post repair by Dr. BERNAL New onset episode of atrial fibrillation with rapid ventricular rate requiring ICU admission 02/04/21 and Cardizem drip Postop anemia from acute blood loss requiring 4 units of blood in total Severe postop constipation now resolved Plan: Inpatient rehab protocol Pain control Monitor hemoglobin Monitor atrial fibrillation Appreciate cardiology consultation 02/12/2021: Monitor atrial fibrillation with telemetry Supportive care PT and OT per protocol Pain control (1) Intertrochanteric fracture of left femur Status: Acute (2) Atrial fibrillation with RVR Status: Acute (3) MERVIN (acute kidney injury) Status: Acute (4) Postoperative anemia Status: Acute APRYL KAMINSKI DO Feb 12, 2021 06:41
--- NOTE | 2021-02-12 06:41 | Individualized Plan of Care ---
Individualized Plan of Care Rehab Nursing IPOC Order Admission Date Feb 11, 2021 at 13:19 Current Orders Orders Admission Order(Inpt,Obs,Sdc) (02/11/21 12:59) Vital Signs: Per Unit Policy ( 08,16,00 (02/11/21 12:59) Residential Manager-Inpt Rehab Con (02/11/21 12:59) Rehab Nursing Orders-Ipoc (02/11/21 12:59) Physical Therapy Rehab Orders (02/11/21 12:59) Occupational Therapy Rehab Ord (02/11/21 12:59) Speech Therapy Rehab Orders (02/11/21 12:59) Cbc With Automated Diff (02/12/21 06:00) Comprehensive Metabolic Panel (02/12/21 06:00) Precautions (Aru) (02/11/21 12:59) Weekly Weight WEEK (02/11/21 12:59) Rehab-Intensity Of Therapy (02/11/21 12:59) Initiate Admission Nursing Pro .admission (02/11/21 12:59) Acetaminophen Tablet/Caplet (Tylenol T (02/11/21 13:00) Alprazolam Tablet (Xanax Tablet) (02/11/21 13:00) Calcium Carbonate Chew Tablet (Antacid C (02/11/21 13:00) Diphenhydramine Tablet (Benadryl Tablet) (02/11/21 13:00) Docusate Sodium Capsule (Colace Capsule) (02/11/21 21:00) Docusate Sodium Capsule (Colace Capsule) (02/11/21 13:00) Bisacodyl Suppository (Dulcolax Supposit (02/11/21 13:00) Lactulose Oral Solution (Enulose Oral So (02/11/21 13:00) Na Phos/Na Biphos Enema (Fleet Enema Donovan (02/11/21 13:00) Guaifenesin/Codeine Syrup (Robitussin Ac (02/11/21 13:00) Hydrocodone/Apap 5/325 Tablet (Lortab 5 (02/11/21 13:00) Loperamide Tablet (Imodium Tablet) (02/11/21 13:00) Melatonin Tablet (Melatonin Tablet) (02/11/21 13:00) Polyethylene Glycol Powder Pkt (Miralax (02/11/21 21:00) Ondansetron Oral Dissolve Tab (Zofran (02/11/21 13:00) Senna S Tablet (Senokot S Tablet) (02/11/21 21:00) Initiate Admission Nursing Pro .admission (02/11/21 12:59) Admission Arrival Bed Request (02/11/21 13:19) Patient Visit (02/11/21 ) Functional Activities, Ea 15 (02/11/21 ) Exercise Therap, Ea 15 Min (02/11/21 ) Patient Visit (02/11/21 ) Pt Eval Moderate Complexity (02/11/21 ) Functional Activities, Ea 15 (02/11/21 ) Code/Resuscitation (02/11/21 15:07) Dressing Order (Intervention) DAILY (02/11/21 15:07) Incentive Spirometry (Nursing) Q2H (02/11/21 15:07) Telemetry (02/11/21 15:07) Weight Bearing As Tolerated (02/11/21 15:07) General/Regular (02/11/21 Dinner) Alprazolam Tablet (Xanax Tablet) (02/11/21 15:15) Albuterol/Ipra Inhalation Soln (Duoneb I (02/11/21 21:00) Amiodarone Tablet (Cordarone Tablet) (02/11/21 21:00) Apixaban Tablet (Eliquis Tablet) (02/11/21 21:00) Bisacodyl Suppository (Dulcolax Supposit (02/11/21 15:15) Calcium Carbonate Chew Tablet (Antacid C (02/11/21 15:15) Docusate Sodium Capsule (Colace Capsule) (02/11/21 15:15) Hydrocodone/Apap 5/325 Tablet (Lortab 5 (02/11/21 15:15) Lactulose Oral Solution (Enulose Oral So (02/11/21 15:15) Loperamide Tablet (Imodium Tablet) (02/11/21 15:15) Melatonin Tablet (Melatonin Tablet) (02/11/21 15:15) Na Phos/Na Biphos Enema (Fleet Enema Donovan (02/11/21 15:15) Ondansetron Oral Dissolve Tab (Zofran (02/11/21 15:15) Pantoprazole Tablet (Protonix Tablet) (02/12/21 09:00) Senna S Tablet (Senokot S Tablet) (02/11/21 15:15) Sodium Chloride Flush (Catheter Flush Sy (02/11/21 15:15) Acetaminophen Tablet/Caplet (Tylenol T (02/11/21 15:15) Ondansetron Injection (Zofran Injectio (02/11/21 15:15) Diphenhydramine Tablet (Benadryl Tablet) (02/11/21 15:15) Guaifenesin Tablet (Mucinex Tablet) (02/11/21 15:15) Guaifenesin/Codeine Syrup (Robitussin Ac (02/11/21 15:15) Metoprolol Tartrate (Ir) Tab (Lopressor (02/11/21 21:00) Oxycodone/Apap 5/325mg Tablet (Percocet (02/11/21 15:15) Polyethylene Glycol Powder Pkt (Miralax (02/11/21 21:00) Consult Physician (02/11/21 15:07) Mat Initiate Protocol (02/11/21 15:07) Vicente Negrete (02/11/21 15:07) Telemetry Nursing Assessment ( (02/11/21 15:07) Svn Small Volume Nebulizer (02/11/21 15:07) Albuterol/Ipra Inhalation Soln (Duoneb I (02/12/21 14:00) Iron Sucrose Injection (Venofer Injectio (02/12/21 10:45) Patient Visit (02/12/21 ) Speech Sound Lang Comp (02/12/21 ) Treat. Speech/Lang/Voice (02/12/21 ) Patient Visit (02/12/21 ) Exercise Therap, Ea 15 Min (02/12/21 ) Functional Activities, Ea 15 (02/12/21 ) Gait Training, Ea 15 Min (02/12/21 ) Rehab Nursing Orders: Ongoing Assess. of Cognitive Status, Ongoing Assess. of Function Status, Bladder Management, Bladder Scan, Bladder Training, Bowel Management, Bowel Training, Disease Management & Educaiton, DVT Prophylaxis, Fall Prevention, Fluid/Electrolyte/Nutrition Mgmt, Infection Prevention, Medication Management & Education, Management of Risks & Complications, Management of Skin Intergrity, Nutrition Management, Pain Management, Patient/Family Support, Safety Management Intensity of Therapy to be met Patient to be seen: Min.3h per day/5 of 7d PT IPOC Problem List: Activity Tolerance, Functional Strength, Safety, Balance, Gait, Transfer, Bed Mobility Treatment Plan: Continue Plan of Care Bed Mobility, Concurrent Therapy, Education, Functional Activity Molly, Functional Strength, Group Therapy, Gait, Safety, Therapeutic Exercise, Transfers Treatment Duration: Mar 09, 2021 Frequency: At least 5 of 7 days/Wk (IRF) Estimated Hrs Per Day: 1.5 hours per day OT IPOC Problems: Decreased Activ Tolerance, Impaired I ADL's, Impaired Self-Care Skills OT Treatment, Training and Edu: Yes Plan of Care: ADL Retraining, Functional Mobility, UE Funct Exercise/Act Treatment Duration: Feb 25, 2021 Frequency: At least 5 of 7 days/Wk (IRF) Estimated Hrs Per Day: 1.[address] IPOC Speech Therapy Treatment Plan: Discontinue ST Treatment Duration: Feb 12, 2021 Frequency: Modified Program (IRF) Estimated Hrs Per Day: Other Residential Manager/Case Mgmt Residential Manager/Case Managemen: Discharge Planning Dietitian/Histotechnician Dietitian/Histotechnician to monitor nutritional status and make changes and/or recommendations as needed and work with speech pathology on dietary upgrades as the occur. Physician IPOC Medical Issues being managed closely and that require the 24 hour availability of a physician: New onset atrial fibrillation with ICU transfer x2 will require close monitoring with telemetry and cardiology consultation and monitor for decompensation Medical Issues: Bowel/Bladder Function, DVT Prophylaxis, Falls Precautions, Fluid/Electrolyte/Nutrition Balance, Infection Protection, Pain Management Brief Synthesis of Preadmission Screen, Post-Admission Evaluation, and Therapy Evaluations: PT and OT will focus on regaining function and ambulatory ability along with independent ADLs in order to return back to live independently Medical Prognosis: Good Anticipated Length of Stay: 10 days APRYL KAMINSKI DO Feb 12, 2021 06:41
[2021-02-12] MEDS: RT-ALBUTEROL/IPRATROPIUM 3 ML (DUONEB) VIAL INH SCH ×3 (07:26→20:40)
[2021-02-12 07:53] VITALS: BP 129/83
[2021-02-12] MEDS: HYDROcodone/APAP 5 MG/325 MG (LORTAB) TAB PO PRN (08:44)
[2021-02-12 08:54] VITALS: BP 125/58
[2021-02-12] MEDS: APIXABAN 5 MG (ELIQUIS) TABLET PO SCH ×2 (08:55→20:05)
[2021-02-12] MEDS: DOCUSATE SODIUM 100 MG (COLACE) CAP PO SCH ×3 (08:55→20:16)
[2021-02-12] MEDS: AMIODARONE 200 MG (CORDARONE) TAB PO SCH ×2 (08:55→20:05)
[2021-02-12] MEDS: PANTOPRAZOLE 40 MG (PROTONIX) TAB PO SCH (08:56)
[2021-02-12] MEDS: meTOprolol TARTRATE 25 MG (LOPRESSOR) TABLET PO SCH ×2 (08:56→20:05)
[2021-02-12] MEDS: SENNA W/DOCUSATE (SENOKOT S) TABLET PO SCH ×3 (08:56→20:16)
--- NOTE | 2021-02-12 08:57 | Physical Therapy Daily Note ---
PT Daily Note-Current Subjective Patient in recliner pre tx, agrees to PT, has 4/10 pain in left hip, nurse gets him pain meds. Patient needs to use the restroom and does so with SBA, afterward he gets shorts and underwear on with min/mod assist. Appearance Patient in recliner post tx with nurse call, phone, tray, all needs met. Mental Status Patient Orientation: Person, Place, Situation Transfers SCALE: Activities may be completed with or without assistive devices. 1-Jymlpgrwvl-aabfrph completes the activity by him/herself with no assistance from a helper. 5-Set-up or Clean-up Assistance-helper sets up or cleans up; patient completes a ctivity. [place] assists only prior to or following the activity. 4-Supervision or Touching Assistance-helper provides verbal cues and/or touching/steadying and/or contact guard assistance as patient completes activity. Assistance may be provided throughout the activity or intermittently. 3-Partial/Moderate Assistance-helper does LESS THAN HALF the effort. [place] lifts, holds or supports trunk or limbs, but provides less than half the effort. 2-Substantial/Maximal Assistance-helper does MORE THAN HALF the effort. [place] lifts or holds trunk or limbs and provides more than half the effort. 4-Msovucdxu-uooroj does ALL the effort. Patient does none of the effort to complete the activity. Or, the assistance of 2 or more helpers is required for the patient to complete the activity. If activity was not attempted, code reason: 7-Patient Refused. 9-Not Applicable-not attempted and the patient did not perform the activity before the current illness, exacerbation or injury. 10-Not Attempted due to Environmental Limitations-(lack of equipment, weather restraints, etc.). 88-Not Attempted due to Medical Conditions or Safety Concerns. Sit to Stand (QC): 4 Chair/Rml-wa-Ntfhg Xfer(QC): 4 Weight Bearing Right Lower Extremity: Right Full Weight Bearing Left Lower Extremity: Left Touch Toe Bearing Gait Training Distance: 120'x2 Walk 10 feet (QC): 4 Walk 50 ft with 2 Turns(QC): 4 Gait Persons Needed: 1 Gait Assistive Device: FWW slow, antalgic, patient does a pretty good job of maintaining TTWB on the left leg but occasionally seems to put too much weight on it. Exercises Standing: Hamstring curls (LLE), Heel/toe raises (RLE only), 3 way Ex=Flex, Abd, Ext (LLE), Marching (LLE) LAQ left side for 3 min Treatments transfers, ambulation, LE ROM and strengthening Assessment Current Status: Fair Progress improving functional mobility PT Mcc Goals Mcc Goals PT Mcc Goals Time Frame: Mar 09, 2021 Roll Left & Right (QC): 5 Sit to Lying (QC): 5 Lying-Sitting on Side/Bed(QC): 5 Sit to Stand (QC): 5 Chair/Ule-bf-Bqgih Xfer(QC): 5 Toilet Transfer (QC): 5 Car Transfer (QC): 5 Does the Patient Walk: Yes Walk 10 feet (QC): 5 Walk 50ft with 2 Turns (QC): 5 Walk 150 ft (QC): 5 Walking 10ft on Uneven Surface: 5 1 Step (curb) (QC): 5 4 Steps (QC): 5 12 Steps (QC): 88 Picking up an Object (QC): 5 Wheel 50 feet with 2 turns (QC: 9 Type: N/A Wheel 150 feet: 9 Type: N/A PT Plan Problem List Problem List: Activity Tolerance, Functional Strength, Safety, Balance, Gait, Transfer, Bed Mobility, ROM Treatment/Plan Treatment Plan: Continue Plan of Care Treatment Plan: Bed Mobility, Concurrent Therapy, Education, Functional Activity Molly, Functional Strength, Group Therapy, Gait, Safety, Therapeutic Exercise, Transfers Treatment Duration: Mar 09, 2021 Frequency: At least 5 of 7 days/Wk (IRF) Estimated Hrs Per Day: 1.5 hours per day Patient and/or Family Agrees t: Yes Safety Risks/Education Patient Education: Gait Training, Transfer Techniques, Reviewed Precautions, Correct Positioning, Safety Issues Teaching Recipient: Patient Teaching Methods: Demonstration, Discussion Response to Teaching: Reinforcement Needed Time/GCodes Time In: 0800 Time Out: 0900 Total Billed Treatment Time: 60 Total Billed Treatment 1 visit EX 30' FA 30' CHRISTIE HERRERA PT Feb 12, 2021 08:57
[2021-02-12] MEDS: IRON SUCROSE 200 MG/10 ML (VENOFER) VIAL IV SCH (11:44)
--- NOTE | 2021-02-12 11:48 | ST Cognitive Linguistic Eval ---
Speech Evaluation-General Medical Diagnosis A-fib/left hip fracture/IM nail Onset Date: Feb 05, 2021 Therapy Diagnosis Therapy Diagnosis: Cognitive-communication Referral Referring Physician: Dr. Hoang Medical History Pertinent Medical History: Atrial Fib, Neuropathy Reviewed History: Yes Social History Current Living Status: Alone Speech PLF-Current Status Prior Level of Function Patient lives home alone where he is indpendent with his daily needs. Subjective Patient was pleasant and cooperative with the cognitive assessment. Language Eval: Auditory Comprehends Simple Yes/No Ques: Functional Indent/Objects Multiple Ramirez: Functional Ident/Pics in Multiple Ramirez: Functional Follows 1-Step Commands: Functional Follows Complex Directions: Functional Follows General Conversations: Functional Language Eval: Verbal Language Completes Spontaneous Greeting: Functional Produces Auto, Serial Info: Functional Imitates Simple Words/Phrases: Functional Word Finding: Functional Requests Basic Needs: Functional States Basic Personal Info: Functional Expresses Complex Ideas: Functional Objective Cognitive Domain Attention: WNL Memory: WNL Problem Solving: Functional Executive Functions: WNL Visuospatial Skills: WNL Composite Severity Rating: WNL Clock Drawing Severity Rating: WNL Objective Formal/Standardized Tests [facility] Mental Status ([facility]) Results 28/30, within normal range of function Oral Motor/Speech Production Within Normal Limits Impression Patient is a pleasant 81 y/o male who was admitted to the ARU due to a fall resulting in a broken leg. The patient was admitted to ARU previously, however was discharged to ICU due to A-fib complication. Patient was given the SLUMS at bedside with a score of 28/30 obtained. This score is within normal range of function and does not indicated the need for further ST services at this time. Speech Patient Assess Expression of Ideas/Wants: Expression (4) Understanding Verbal Content: Understands (4) Brief Interview-Mental Status: Yes Repetition of Three Words: Three (3) Temporal Orientation: Year: Correct (3) Temporal Orientation: Month: Accurate within 5 days(2) Temporal Orientation: Day: Correct (1) Recall : Wear to say "Sock": Yes, no cue required (2) Recall : Color: Yes, no cue required (2) Recall : Bed: Yes, no cue required (2) Memory/Recall Ability: Current season, That he or she is in a hsp/hsp unit Speech-Plan Patient/Family Goals Patient/Family Goals: Patient plans on returning to his home where he lives alone upon discharge from ARU. Treatment Plan Speech Therapy Treatment Plan: Discontinue ST Treatment Duration: Feb 12, 2021 Frequency: 1 time per week Estimated Hrs Per Day: .5 hour per day Rehab Potential: Good Barriers to Learning: None identified Pt/Family Agrees to Plan: Yes Safety Risks/Education Teaching Recipient: Patient Teaching Methods: Discussion Response to Teaching: Verbalize Understanding Education Topics Provided: Safety awareness and communication Time Speech Therapy Time In: 09:30 Speech Therapy Time Out: 10:00 Total Billed Time: 30 Billed Treatment Time 1, ETELVINA SCHMITT [facility] [facility] Feb 12, 2021 11:48
--- NOTE | 2021-02-12 13:31 | Physical Therapy Daily Note ---
PT Daily Note-Current Subjective Patient in restroom pre tx, agrees to PT, has 4/10 pain in left hip. Patient is able to wipe himself and pull his pants back up with min assist. Appearance Patient in recliner post tx with nurse call, phone, tray, all needs met, legs elevated and on pillow. Mental Status Patient Orientation: Person, Place, Situation Transfers SCALE: Activities may be completed with or without assistive devices. 3-Urptniznoc-ifhoxaf completes the activity by him/herself with no assistance from a helper. 5-Set-up or Clean-up Assistance-helper sets up or cleans up; patient completes activity. [place] assists only prior to or following the activity. 4-Supervision or Touching Assistance-helper provides verbal cues and/or touching/steadying and/or contact guard assistance as patient completes activity. Assistance may be provided throughout the activity or intermittently. 3-Partial/Moderate Assistance-helper does LESS THAN HALF the effort. [place] lifts, holds or supports trunk or limbs, but provides less than half the effort. 2-Substantial/Maximal Assistance-helper does MORE THAN HALF the effort. [place] lifts or holds trunk or limbs and provides more than half the effort. 0-Jwgzurmea-ctpkjl does ALL the effort. Patient does none of the effort to complete the activity. Or, the assistance of 2 or more helpers is required for the patient to complete the activity. If activity was not attempted, code reason: 7-Patient Refused. 9-Not Applicable-not attempted and the patient did not perform the activity before the current illness, exacerbation or injury. 10-Not Attempted due to Environmental Limitations-(lack of equipment, weather restraints, etc.). 88-Not Attempted due to Medical Conditions or Safety Concerns. Sit to Stand (QC): 4 Chair/Buk-lz-Dkxcg Xfer(QC): 4 Weight Bearing Right Lower Extremity: Right Full Weight Bearing Left Lower Extremity: Left Touch Toe Bearing Gait Training Distance: 120'x2 Walk 10 feet (QC): 4 Walk 50 ft with 2 Turns(QC): 4 Gait Persons Needed: 1 Gait Assistive Device: FWW slow, antalgic, compliant with TTWB on the left leg Exercises NuStep Minutes: 10 NuStep Workload: 4 (LLE not used) Treatments transfers, ambulation, functional strengthening Assessment Current Status: Fair Progress improving endurance, gets SOB with activity and needs frequent rest breaks PT Usp Goals Usp Goals PT Usp Goals Time Frame: Mar 09, 2021 Roll Left & Right (QC): 5 Sit to Lying (QC): 5 Lying-Sitting on Side/Bed(QC): 5 Sit to Stand (QC): 5 Chair/Owe-dx-Ogvjq Xfer(QC): 5 Toilet Transfer (QC): 5 Car Transfer (QC): 5 Does the Patient Walk: Yes Walk 10 feet (QC): 5 Walk 50ft with 2 Turns (QC): 5 Walk 150 ft (QC): 5 Walking 10ft on Uneven Surface: 5 1 Step (curb) (QC): 5 4 Steps (QC): 5 12 Steps (QC): 88 Picking up an Object (QC): 5 Wheel 50 feet with 2 turns (QC: 9 Type: N/A Wheel 150 feet: 9 Type: N/A PT Plan Problem List Problem List: Activity Tolerance, Functional Strength, Safety, Balance, Gait, Transfer, Bed Mobility, ROM Treatment/Plan Treatment Plan: Continue Plan of Care Treatment Plan: Bed Mobility, Concurrent Therapy, Education, Functional Activity Molly, Functional Strength, Group Therapy, Gait, Safety, Therapeutic Exercise, Transfers Treatment Duration: Mar 09, 2021 Frequency: At least 5 of 7 days/Wk (IRF) Estimated Hrs Per Day: 1.5 hours per day Patient and/or Family Agrees t: Yes Safety Risks/Education Patient Education: Gait Training, Transfer Techniques, Reviewed Precautions, Correct Positioning, Safety Issues Teaching Recipient: Patient Teaching Methods: Demonstration, Discussion Response to Teaching: Reinforcement Needed Time/GCodes Time In: 1300 Time Out: 1330 Total Billed Treatment Time: 30 Total Billed Treatment 1 visit EX 10' GT 20' CHRISTIE HERRERA PT Feb 12, 2021 13:31
--- NOTE | 2021-02-12 14:12 | Occupational Ther Daily Note ---
OT Current Status-Daily Note Subjective No pain reported. Appearance Pt. up in chair. Agrees to work with OT. Mental Status/Objective Patient Orientation: Person, Place ADL-Treatment Therapy Code Descriptions/Definitions Functional [place] Measure: 0=Not Assessed/NA 4=Minimal Assistance 1=Total Assistance 5=Supervision or Setup 2=Maximal Assistance 6=Modified [place] 3=Moderate Assistance 7=Complete IndependenceSCALE: Activities may be completed with or without assistive devices. 1-Lpiuqzprzf-ukvowrl completes the activity by him/herself with no assistance from a helper. 5-Set-up or Clean-up Assistance-helper sets up or cleans up; patient completes activity. [place] assists only prior to or following the activity. 4-Supervision or Touching Assistance-helper provides verbal cues and/or touching/steadying and/or contact guard assistance as patient completes activity. Assistance may be provided throughout the activity or intermittently. 3-Partial/Moderate Assistance-helper does LESS THAN HALF the effort. [place] lifts, holds or supports trunk or limbs, but provides less than half the effort. 2-Substantial/Maximal Assistance-helper does MORE THAN HALF the effort. [place] lifts or holds trunk or limbs and provides more than half the effort. 9-Itrjjeamh-rdzima does ALL the effort. Patient does none of the effort to complete the activity. Or, the assistance of 2 or more helpers is required for the patient to complete the activity. If activity was not attempted, code reason: 7-Patient Refused. 9-Not Applicable-not attempted and the patient did not perform the activity before the current illness, exacerbation or injury. 10-Not Attempted due to Environmental Limitations-(lack of equipment, weather restraints, etc.). 88-Not Attempted due to Medical Conditions or Safety Concerns. Oral Hygiene (QC): 5 Shower/Bathe Self (QC): 3 (Min assist in shower for balance in stance. Pt. utilized LH sponge for feet.) Upper Body Dressing (QC): 4 Lower Body Dressing (QC): 2 On/Off Footwear: 2 Other Treatment Pt. required max assist to don slipper socks without AE after shower, but once he was seated back in his chair, he did practice with AE and required mod assist. Pt. able to stand with min assist overall with walker. All needs met up in chair. Education OT Patient Education: Correct positioning, Modified ADL techniques, Progress toward Goal/Update tx plan, Purpose of tx/functional activities, Reviewed precautions, Rehab process, Transfer techniques Teaching Recipient: Patient, Family Teaching Methods: Demonstration, Discussion Response to Teaching: Verbalize Understanding, Return Demonstration OT Short Term Goals Short Term Goals Time Frame: Feb 18, 2021 Eatin Oral hygiene: 5 Toileting hygiene: 4 Shower/bathe self: 3 Upper body dressin Lower body dressin Putting on/taking off footwear: 4 OT Interpreter Deaf Goals Long-Term Goals Time Frame: Feb 25, 2021 Eating (QC): 6 Oral Hygiene (QC): 6 Toileting Hygiene (QC): 6 Shower/Bathe Self (QC): 4 Upper Body Dressing (QC): 5 Lower Body Dressing (QC): 4 On/Off Footwear (QC): 6 Additional Goals: 1-Demonstrate ADL Tasks, 2-Verbalize Understanding, 3- ImproveStrength/Molly 1=Demonstrate adherence to instructed precautions during ADL tasks. 2=Patient will verbalize/demonstrate understanding of assistive devices/modifications for ADL. 3=Patient will improve strength/tolerance for activity to enable patient to perform ADL's. OT Education/Plan Problem List/Assessment Assessment: Decreased Activ Tolerance, Dependent Transfers, Impaired I ADL's, Impaired Self-Care Skills Discharge Recommendations Plan/Recommendations: Continue POC Therapy Discharge Recommendati: Home & Family, Post Acute OT Equpiment Recommendations-D/C: Hip Kit Treatment Plan/Plan of Care Treatment,Training & Education: Yes Patient would benefit from OT for education, treatment and training to promote independence in ADL's, mobility, safety and/or upper extremity function for ADL's. Plan of Care: ADL Retraining, Functional Mobility, UE Funct Exercise/Act Treatment Duration: Feb 25, 2021 Frequency: At least 5 of 7 days/Wk (IRF) Estimated Hrs Per Day: 1.5 hours per day Agreement: Yes Rehab Potential: Good Time/GCodes Start Time: 10:10 Stop Time: 11:30 Total Time Billed (hr/min): 80 Billed Treatment Time 1, ADL x 5 JOCELYNE MADRIGAL OT Feb 12, 2021 14:12
[2021-02-12] MEDS: oxyCODONE/APAP 5/325MG (PERCOCET 5) TABLET PO PRN ×2 (14:22→20:05)
[2021-02-12 19:25] VITALS: BP 96/59
[2021-02-12 20:06] VITALS: BP 108/55
[2021-02-12] MEDS: polyethylene glycoL POWDER 17 GM (MIRALAX) PACK PO SCH (20:06)
[2021-02-13] MEDS: RT-ALBUTEROL/IPRATROPIUM 3 ML (DUONEB) VIAL INH SCH ×3 (06:15→20:28)
--- NOTE | 2021-02-13 06:38 | PM&R Progress Note ---
Subjective HPI/CC On Admission Date Seen by Provider: Feb 13, 2021 Time Seen by Provider: 10:30 Subjective/Events-last exam 02/13/2021: Pt doing pretty well Pain is managed with Oxycodone IV iron infusions maintained Normal sinus rhythm on telemetry so with DC telemetry 02/12/2021: Pt doing pretty well Had a bowel movement today Hemoglobin 9.0 IV iron will be restarted Creatinine at 1.41, will monitor that closely A fib is well controlled Review of Systems Musculoskeletal: leg pain Objective Exam Vital Signs Vital Signs Date Time Temp Pulse Resp B/P (MAP) Pulse Ox O2 Delivery O2 Flow Rate FiO2 02/13/21 20:29 92 Room Air 02/13/21 20:04 37.2 69 14 100/50 (67) Capillary Refill : General Appearance: No Apparent Distress, WD/WN, Chronically ill HEENT: PERRL/EOMI, Normal ENT Inspection, Pharynx Normal Neck: Full Range of Motion, Normal Inspection, Non Tender, Supple, Carotid Bruit Respiratory: Chest Non Tender, Lungs Clear, Normal Breath Sounds, No Accessory Muscle Use, No Respiratory Distress Cardiovascular: Regular Rate, Rhythm, No Edema, No Gallop, No JVD, No Murmur, Normal Peripheral Pulses Gastrointestinal: Normal Bowel Sounds, No Organomegaly, No Pulsatile Mass, Non Tender, Soft Back: Normal Inspection, No CVA Tenderness, No Vertebral Tenderness Extremity: Normal Capillary Refill, Normal Inspection, Normal Range of Motion, Non Tender, No Calf Tenderness, No Pedal Edema Neurologic/Psychiatric: Alert, Oriented x3, No Motor/Sensory Deficits, printer's assistant II- XII Norm as Tested, Abnormal Gait, Depressed Affect, Motor Weakness (Left leg) Skin: Normal Color, Warm/Dry Lymphatic: No Adenopathy Results/Procedures Lab Patient resulted labs reviewed. FIM Transfers Therapy Code Descriptions/Definitions Functional [place] Measure: 0=Not Assessed/NA 4=Minimal Assistance 1=Total Assistance 5=Supervision or Setup 2=Maximal Assistance 6=Modified [place] 3=Moderate Assistance 7=Complete IndependenceSCALE: Activities may be completed with or without assistive devices. 1-Zzasfhjdrt-hrgjjhj completes the activity by him/herself with no assistance from a helper. 5-Set-up or Clean-up Assistance-helper sets up or cleans up; patient completes activity. [place] assists only prior to or following the activity. 4-Supervision or Touching Assistance-helper provides verbal cues and/or touching/steadying and/or contact guard assistance as patient completes activity. Assistance may be provided throughout the activity or intermittently. 3-Partial/Moderate Assistance-helper does LESS THAN HALF the effort. [place] lifts, holds or supports trunk or limbs, but provides less than half the effort. 2-Substantial/Maximal Assistance-helper does MORE THAN HALF the effort. [place] lifts or holds trunk or limbs and provides more than half the effort. 4-Yjjmydgcc-vgpzce does ALL the effort. Patient does none of the effort to complete the activity. Or, the assistance of 2 or more helpers is required for the patient to complete the activity. If activity was not attempted, code reason: 7-Patient Refused. 9-Not Applicable-not attempted and the patient did not perform the activity before the current illness, exacerbation or injury. 10-Not Attempted due to Environmental Limitations-(lack of equipment, weather restraints, etc.). 88-Not Attempted due to Medical Conditions or Safety Concerns. Roll Left to Right (QC): 4 (SBA) Sit to Lying (QC): 3 Sit to Stand (QC): 4 Chair/Ufr-ru-Ceioz Xfer(QC): 4 Car Transfer (QC): 4 Gait Training Does the Patient Walk?: Yes Distance: 120'x2 Walk 10 feet (QC): 4 Walk 50 ft with 2 Turns(QC): 4 Walk 150 ft (QC): 88 Walking 10ft/uneven surface-QC: 3 Gait Persons Needed: 1 Gait Assistive Device: FWW Wheelchair Training Does the Pt Use a Wheelchair?: Yes Distance: 10' Wheel 50 ft with 2 turns (QC): 88 Wheel 150 ft (QC): 88 Type of Wheelchair: Manual Stair Training #of Steps: 1 1 Step (curb) (QC): 3 4 Steps (QC): 88 12 Steps (QC): 88 Balance Picking up an Object (QC): 4 (in seated position) ADL-Treatment Eating (QC): 6 Oral Hygiene (QC): 5 Shower/Bathe Self (QC): 3 (Min assist in shower for balance in stance. Pt. utilized LH sponge for feet.) Upper Body Dressing (QC): 4 Lower Body Dressing (QC): 2 On/Off Footwear (QC): 2 Toileting Hygiene (QC): 2 Assessment/Plan Assessment and Plan Assess & Plan/Chief Complaint Assessment: Severe debility due to left hip fracture Atrial fibrillation with rapid ventricular response requiring transfer to the ICU 02/06/21 and discharged from inpatient rehab since less than 3 days of admission Displaced and comminuted intertrochanteric fracture of the left femur status post uncomplicated repair 02/01/21 status post repair by Dr. BERNAL New onset episode of atrial fibrillation with rapid ventricular rate requiring ICU admission 02/04/21 and Cardizem drip Postop anemia from acute blood loss requiring 4 units of blood in total Severe postop constipation now resolved Plan: Inpatient rehab protocol Pain control Monitor hemoglobin Monitor atrial fibrillation Appreciate cardiology consultation 02/12/2021: Monitor atrial fibrillation with telemetry Supportive care PT and OT per protocol Pain control 02/13/2021: Pain control Rehab protocol Fall risk (1) Intertrochanteric fracture of left femur Status: Acute (2) Atrial fibrillation with RVR Status: Acute (3) MERVIN (acute kidney injury) Status: Acute (4) Postoperative anemia Status: Acute APRYL KAMINSKI DO Feb 13, 2021 06:38
[2021-02-13 08:00] VITALS: BP 127/59
[2021-02-13] MEDS: DOCUSATE SODIUM 100 MG (COLACE) CAP PO SCH ×2 (08:28→20:01)
[2021-02-13] MEDS: SENNA W/DOCUSATE (SENOKOT S) TABLET PO SCH ×2 (08:28→20:01)
[2021-02-13] MEDS: AMIODARONE 200 MG (CORDARONE) TAB PO SCH ×2 (08:28→20:00)
--- NOTE | 2021-02-13 08:28 | Progress Note ---
Standard Progress Note Progress Notes/Assess & Plan Date Seen by a Provider: Feb 13, 2021 Time Seen by a Provider: 08:26 Progress/Assessment & Plan feeling better Vital Signs Date Time Temp Pulse Resp B/P (MAP) Pulse Ox O2 Delivery O2 Flow Rate FiO2 02/13/21 06:16 94 Room Air 02/13/21 01:00 61 02/12/21 20:40 91 Room Air 02/12/21 20:10 Room Air 02/12/21 20:06 65 108/55 (72) 02/12/21 19:25 36.7 69 18 96/59 (71) 93 02/12/21 19:00 66 02/12/21 15:05 90 Room Air 02/12/21 09:00 Room Air 02/12/21 08:54 71 125/58 (80) 95 Room Air Incision clean and dry. No calf tenderness. Neg Sherly's good abd/adduction strength poor SLR s/p L hip IM aarti TTWB HUMERA LOCKETT MD Feb 13, 2021 08:28
[2021-02-13] MEDS: APIXABAN 5 MG (ELIQUIS) TABLET PO SCH ×2 (08:29→20:00)
[2021-02-13] MEDS: oxyCODONE/APAP 5/325MG (PERCOCET 5) TABLET PO PRN ×2 (08:30→20:01)
[2021-02-13] MEDS: PANTOPRAZOLE 40 MG (PROTONIX) TAB PO SCH (08:30)
[2021-02-13] MEDS: meTOprolol TARTRATE 25 MG (LOPRESSOR) TABLET PO SCH ×2 (08:30→20:01)
--- NOTE | 2021-02-13 09:01 | Occupational Ther Daily Note ---
OT Current Status-Daily Note Subjective Pt. reports pain 6/10 in left hip. Nursing gives pain medication. Mental Status/Objective Patient Orientation: Person, Place, Time, Situation ADL-Treatment Therapy Code Descriptions/Definitions Functional [place] Measure: 0=Not Assessed/NA 4=Minimal Assistance 1=Total Assistance 5=Supervision or Setup 2=Maximal Assistance 6=Modified [place] 3=Moderate Assistance 7=Complete IndependenceSCALE: Activities may be completed with or without assistive devices. 3-Vmjqcinlga-ahbjrxv completes the activity by him/herself with no assistance fr om a helper. 5-Set-up or Clean-up Assistance-helper sets up or cleans up; patient completes activity. [place] assists only prior to or following the activity. 4-Supervision or Touching Assistance-helper provides verbal cues and/or touching/steadying and/or contact guard assistance as patient completes activity. Assistance may be provided throughout the activity or intermittently. 3-Partial/Moderate Assistance-helper does LESS THAN HALF the effort. [place] lifts, holds or supports trunk or limbs, but provides less than half the effort. 2-Substantial/Maximal Assistance-helper does MORE THAN HALF the effort. [place] lifts or holds trunk or limbs and provides more than half the effort. 7-Enbkiziyr-bjytjq does ALL the effort. Patient does none of the effort to complete the activity. Or, the assistance of 2 or more helpers is required for the patient to complete the activity. If activity was not attempted, code reason: 7-Patient Refused. 9-Not Applicable-not attempted and the patient did not perform the activity before the current illness, exacerbation or injury. 10-Not Attempted due to Environmental Limitations-(lack of equipment, weather restraints, etc.). 88-Not Attempted due to Medical Conditions or Safety Concerns. Oral Hygiene (QC): 5 (Seated at sink.) Upper Body Dressing (QC): 5 Lower Body Dressing (QC): 3 (Min assist with use of adaptive equipment.) On/Off Footwear: 3 (Min assist with use of adaptive equipment.) Education OT Patient Education: Correct positioning, Modified ADL techniques, Progress t oward Goal/Update tx plan, Purpose of tx/functional activities, Reviewed precautions, Rehab process, Transfer techniques, Use of adapted equipment Teaching Recipient: Patient Teaching Methods: Demonstration, Discussion Response to Teaching: Verbalize Understanding, Return Demonstration OT Short Term Goals Short Term Goals Time Frame: Feb 18, 2021 Eatin Oral hygiene: 5 Toileting hygiene: 4 Shower/bathe self: 3 Upper body dressin Lower body dressin Putting on/taking off footwear: 4 OT Purchasing Director Goals Senior Living Goals Time Frame: Feb 25, 2021 Eating (QC): 6 Oral Hygiene (QC): 6 Toileting Hygiene (QC): 6 Shower/Bathe Self (QC): 4 Upper Body Dressing (QC): 5 Lower Body Dressing (QC): 4 On/Off Footwear (QC): 6 Additional Goals: 1-Demonstrate ADL Tasks, 2-Verbalize Understanding, 3- ImproveStrength/Molly 1=Demonstrate adherence to instructed precautions during ADL tasks. 2=Patient will verbalize/demonstrate understanding of assistive devices/modifications for ADL. 3=Patient will improve strength/tolerance for activity to enable patient to perform ADL's. OT Education/Plan Discharge Recommendations Plan/Recommendations: Continue POC Therapy Discharge Recommendati: Home & Family, Post Acute OT Equpiment Recommendations-D/C: Hip Kit Treatment Plan/Plan of Care Treatment,Training & Education: Yes Patient would benefit from OT for education, treatment and training to promote independence in ADL's, mobility, safety and/or upper extremity function for ADL's. Plan of Care: ADL Retraining, Functional Mobility, UE Funct Exercise/Act Treatment Duration: Feb 25, 2021 Frequency: At least 5 of 7 days/Wk (IRF) Estimated Hrs Per Day: 1.5 hours per day Agreement: Yes Rehab Potential: Good Time/GCodes Start Time: 08:00 Stop Time: 09:00 Total Time Billed (hr/min): 60 Billed Treatment Time 1, ADL x 4 JOCELYNE MADRIGAL OT Feb 13, 2021 09:01
--- NOTE | 2021-02-13 12:14 | Physical Therapy Daily Note ---
PT Daily Note-Current Subjective Pt. agrees to Rx. States it is a challenge to walk as far as the gym, he fatigues Pain Numeric Pain Scale: 3 Location: Left Location Body Site: Hip Pain Description: Ache Mental Status Patient Orientation: Normal For Age Transfers SCALE: Activities may be completed with or without assistive devices. 7-Imzrfbrahk-hfzujsq completes the activity by him/herself with no assistance from a helper. 5-Set-up or Clean-up Assistance-helper sets up or cleans up; patient completes activity. [place] assists only prior to or following the activity. 4-Supervision or Touching Assistance-helper provides verbal cues and/or touching/steadying and/or contact guard assistance as patient completes activity. Assistance may be provided throughout the activity or intermittently. 3-Partial/Moderate Assistance-helper does LESS THAN HALF the effort. [place] lifts, holds or supports trunk or limbs, but provides less than half the effort. 2-Substantial/Maximal Assistance-helper does MORE THAN HALF the effort. [place] lifts or holds trunk or limbs and provides more than half the effort. 4-Xamplguza-tygzgt does ALL the effort. Patient does none of the effort to complete the activity. Or, the assistance of 2 or more helpers is required for the patient to complete the activity. If activity was not attempted, code reason: 7-Patient Refused. 9-Not Applicable-not attempted and the patient did not perform the activity before the current illness, exacerbation or injury. 10-Not Attempted due to Environmental Limitations-(lack of equipment, weather restraints, etc.). 88-Not Attempted due to Medical Conditions or Safety Concerns. Roll Left & Right (QC): 6 Sit to Lying (QC): 6 Lying to Sitting/Side of Bed(Q: 6 Sit to Stand (QC): 6 Chair/Dqc-sw-Jvoen Xfer(QC): 5 Weight Bearing Right Lower Extremity: Right Full Weight Bearing Left Lower Extremity: Left Touch Toe Bearing Gait Training Does the Patient Walk?: Yes Walk 10 feet (QC): 5 Walk 50 ft with 2 Turns(QC): 5 Walk 150 ft (QC): 5 Gait Persons Needed: 1 Gait Assistive Device: FWW gait with min dyspnea noted for 75 ft x 2, 150ft x 1 Exercises Supine Ex: Ankle pumps, Quad Set, Glut sets, Heel Slides, Short Arc Quads, Straight leg raise (assisted left), Hip abd/add (assisted left) Supine Reps: 15 Seated Therapy Exercises: Ankle pumps, Sit to stand, Long arc quads Seated Reps: 12 NuStep Minutes: 10 NuStep Workload: 3 (no real wt bearing with LLE) Assessment Current Status: Good Progress PT [employer] Goals [facility] Goals PT [facility] Goals Time Frame: Mar 09, 2021 Roll Left & Right (QC): 5 Sit to Lying (QC): 5 Lying-Sitting on Side/Bed(QC): 5 Sit to Stand (QC): 5 Chair/Dcw-ba-Yspbf Xfer(QC): 5 Toilet Transfer (QC): 5 Car Transfer (QC): 5 Does the Patient Walk: Yes Walk 10 feet (QC): 5 Walk 50ft with 2 Turns (QC): 5 Walk 150 ft (QC): 5 Walking 10ft on Uneven Surface: 5 1 Step (curb) (QC): 5 4 Steps (QC): 5 12 Steps (QC): 88 Picking up an Object (QC): 5 Wheel 50 feet with 2 turns (QC: 9 Type: N/A Wheel 150 feet: 9 Type: N/A PT Plan Treatment/Plan Treatment Plan: Continue Plan of Care Treatment Plan: Bed Mobility, Concurrent Therapy, Education, Functional Activity Molly, Functional Strength, Group Therapy, Gait, Safety, Therapeutic Exercise, Transfers Treatment Duration: Mar 09, 2021 Frequency: At least 5 of 7 days/Wk (IRF) Estimated Hrs Per Day: 1.5 hours per day Patient and/or Family Agrees t: Yes Safety Risks/Education Patient Education: Gait Training, Transfer Techniques, Correct Positioning, Disease Process, Safety Issues Teaching Recipient: Patient Teaching Methods: Demonstration, Discussion Response to Teaching: Verbalize Understanding, Return Demonstration, Reinforcement Needed Time/GCodes Time In: 1115 Time Out: 1215 Total Billed Treatment Time: 60 Total Billed Treatment 1,EX30m,GT15m,FA15m SHYANNE HICKS LESSON INSTRUCTOR Feb 13, 2021 12:14
--- NOTE | 2021-02-13 14:53 | Therapy Group Daily Note ---
Therapy Daily Group Note Patient Education Topic Other List Below (juvenalroalfred) Exercises LE Seated Exercise, UE Exercise Session Ratio (pt:therapist): 6:2 Goal of Session: Memory Strategies, UE/LE Strengthing Goal Met for this Session: Yes Pt Benefit of Group: Contributions to Others, F/U Use of Strategies @Home, Increased Functional Safety, Increased Functional Strength, Improved Cognition, Recognition of Peers, Socialization Other/Notes Pt ambulated using FWW to [facility] for OT/PT group. Group consisted of introductions (name, place born, most trouble in childhood), socialization, seated B UE/LE exercises, memory activity and education on memory strategies. Pt introduced self appropriately and actively listened to peers. Pt able to complete B UE/LE seated exercises without difficulty, 1 set 10 reps of each. Pt acknowledged understanding of memory education and gave personal strategies for memory aides. Pt participated fully in memory activity and was able to complete 3 out 4 attempts. After therapy, pt lying in bed with call light/phone in reach. All needs met in room. Start Time: 13:00 Stop Time: 14:15 Total Billed Treatment Time: 75 Total Billed Treatment 1-GRP LOREN SHANNON Feb 13, 2021 14:53
[2021-02-13 20:04] VITALS: BP 100/50
[2021-02-13] MEDS: polyethylene glycoL POWDER 17 GM (MIRALAX) PACK PO SCH (20:08)
--- NOTE | 2021-02-14 06:10 | PM&R Progress Note ---
Subjective HPI/CC On Admission Date Seen by Provider: Feb 14, 2021 Time Seen by Provider: 11:30 Subjective/Events-last exam 02/14/2021: Bowels are moving good IV iron infusion maintained Feels stronger No AF with RVR noted 02/13/2021: Pt doing pretty well Pain is managed with Oxycodone IV iron infusions maintained Normal sinus rhythm on telemetry so with DC telemetry 02/12/2021: Pt doing pretty well Had a bowel movement today Hemoglobin 9.0 IV iron will be restarted Creatinine at 1.41, will monitor that closely A fib is well controlled Review of Systems General: Fatigue, Malaise Neurological: Weakness Objective Exam Vital Signs Vital Signs Date Time Temp Pulse Resp B/P (MAP) Pulse Ox O2 Delivery O2 Flow Rate FiO2 02/14/21 20:34 Room Air 02/14/21 20:00 36.8 73 14 115/53 (73) 93 02/14/21 14:41 21 Capillary Refill : General Appearance: No Apparent Distress, WD/WN, Chronically ill HEENT: PERRL/EOMI, Normal ENT Inspection, Pharynx Normal Neck: Full Range of Motion, Normal Inspection, Non Tender, Supple, Carotid Bruit Respiratory: Chest Non Tender, Lungs Clear, Normal Breath Sounds, No Accessory Muscle Use, No Respiratory Distress Cardiovascular: Regular Rate, Rhythm, No Edema, No Gallop, No JVD, No Murmur, Normal Peripheral Pulses Gastrointestinal: Normal Bowel Sounds, No Organomegaly, No Pulsatile Mass, Non Tender, Soft Back: Normal Inspection, No CVA Tenderness, No Vertebral Tenderness Extremity: Normal Capillary Refill, Normal Inspection, Normal Range of Motion, Non Tender, No Calf Tenderness, No Pedal Edema Neurologic/Psychiatric: Alert, Oriented x3, No Motor/Sensory Deficits, 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 FIM Transfers Therapy Code Descriptions/Definitions Functional [place] Measure: 0=Not Assessed/NA 4=Minimal Assistance 1=Total Assistance 5=Supervision or Setup 2=Maximal Assistance 6=Modified [place] 3=Moderate Assistance 7=Complete IndependenceSCALE: Activities may be completed with or without assistive devices. 0-Egbuxsbrmw-invxxss completes the activity by him/herself with no assistance from a helper. 5-Set-up or Clean-up Assistance-helper sets up or cleans up; patient completes activity. [place] assists only prior to or following the activity. 4-Supervision or Touching Assistance-helper provides verbal cues and/or t ouching/steadying and/or contact guard assistance as patient completes activity. Assistance may be provided throughout the activity or intermittently. 3-Partial/Moderate Assistance-helper does LESS THAN HALF the effort. [place] lifts, holds or supports trunk or limbs, but provides less than half the effort. 2-Substantial/Maximal Assistance-helper does MORE THAN HALF the effort. [place] lifts or holds trunk or limbs and provides more than half the effort. 8-Udwnbcxyv-syfnka does ALL the effort. Patient does none of the effort to complete the activity. Or, the assistance of 2 or more helpers is required for the patient to complete the activity. If activity was not attempted, code reason: 7-Patient Refused. 9-Not Applicable-not attempted and the patient did not perform the activity before the current illness, exacerbation or injury. 10-Not Attempted due to Environmental Limitations-(lack of equipment, weather restraints, etc.). 88-Not Attempted due to Medical Conditions or Safety Concerns. Roll Left to Right (QC): 6 Sit to Lying (QC): 6 Sit to Stand (QC): 6 Chair/Ncu-zs-Fkbjq Xfer(QC): 5 Car Transfer (QC): 4 Gait Training Does the Patient Walk?: Yes Distance: 120'x2 Walk 10 feet (QC): 5 Walk 50 ft with 2 Turns(QC): 5 Walk 150 ft (QC): 5 Walking 10ft/uneven surface-QC: 3 Gait Persons Needed: 1 Gait Assistive Device: FWW Wheelchair Training Does the Pt Use a Wheelchair?: Yes Distance: 10' Wheel 50 ft with 2 turns (QC): 88 Wheel 150 ft (QC): 88 Type of Wheelchair: Manual Stair Training #of Steps: 1 1 Step (curb) (QC): 3 4 Steps (QC): 88 12 Steps (QC): 88 Balance Picking up an Object (QC): 4 (in seated position) ADL-Treatment Eating (QC): 6 Oral Hygiene (QC): 5 (Seated at sink.) Shower/Bathe Self (QC): 3 (Min assist in shower for balance in stance. Pt. utilized LH sponge for feet.) Upper Body Dressing (QC): 5 Lower Body Dressing (QC): 3 (Min assist with use of adaptive equipment.) On/Off Footwear (QC): 3 (Min assist with use of adaptive equipment.) Toileting Hygiene (QC): 2 Assessment/Plan Assessment and Plan Assess & Plan/Chief Complaint Assessment: Severe debility due to left hip fracture Atrial fibrillation with rapid ventricular response requiring transfer to the ICU 02/06/21 and discharged from inpatient rehab since less than 3 days of admission Displaced and comminuted intertrochanteric fracture of the left femur status post uncomplicated repair 02/01/21 status post repair by Dr. BERNAL New onset episode of atrial fibrillation with rapid ventricular rate requiring ICU admission 02/04/21 and Cardizem drip Postop anemia from acute blood loss requiring 4 units of blood in total Severe postop constipation now resolved Plan: Inpatient rehab protocol Pain control Monitor hemoglobin Monitor atrial fibrillation Appreciate cardiology consultation 02/12/2021: Monitor atrial fibrillation with telemetry Supportive care PT and OT per protocol Pain control 02/13/2021: Pain control Rehab protocol Fall risk 02/14/2021: Pain control IV iron infusions Monitor A. fib (1) Intertrochanteric fracture of left femur Status: Acute (2) Atrial fibrillation with RVR Status: Acute (3) MERVIN (acute kidney injury) Status: Acute (4) Postoperative anemia Status: Acute APRYL KAMINSKI DO Feb 14, 2021 06:10
[2021-02-14] MEDS: RT-ALBUTEROL/IPRATROPIUM 3 ML (DUONEB) VIAL INH SCH ×3 (06:43→18:39)
[2021-02-14 07:25] VITALS: BP 128/60
[2021-02-14] MEDS: AMIODARONE 200 MG (CORDARONE) TAB PO SCH ×2 (08:06→20:17)
[2021-02-14] MEDS: DOCUSATE SODIUM 100 MG (COLACE) CAP PO SCH ×2 (08:07→20:34)
[2021-02-14] MEDS: oxyCODONE/APAP 5/325MG (PERCOCET 5) TABLET PO PRN ×2 (08:07→20:18)
[2021-02-14] MEDS: meTOprolol TARTRATE 25 MG (LOPRESSOR) TABLET PO SCH ×2 (08:07→20:18)
[2021-02-14] MEDS: SENNA W/DOCUSATE (SENOKOT S) TABLET PO SCH ×2 (08:07→20:34)
[2021-02-14] MEDS: PANTOPRAZOLE 40 MG (PROTONIX) TAB PO SCH (08:07)
[2021-02-14] MEDS: APIXABAN 5 MG (ELIQUIS) TABLET PO SCH ×2 (08:07→20:17)
--- NOTE | 2021-02-14 08:55 | Cardiology Progress Note ---
Subjective Date Seen by Provider: Feb 14, 2021 Time Seen by Provider: 08:10 Subjective/Events-last exam Patient sitting up in chair, denies any chest pain or dyspnea. Review of Systems General: No Chills, No Night Sweats, No Fatigue, No Malaise, No Appetite, No Other HEENT: No Head Aches, No Visual Changes, No Eye Pain, No Ear Pain, No Dysphasia, No Sinus Congestion, No Post Nasal Drip, No Sore Throat, No Other Pulmonary: No Dyspnea, No Cough, No Pleuritic Chest Pain, No Other Cardiovascular: No: Chest Pain, Palpitations, Orthopnea, Paroxysmal Noc. Dyspnea, Edema, Lt Headedness, Other Objective-Cardiology Exam Last Set of Vital Signs Vital Signs 02/14/21 02/14/21 07:25 09:29 Temp 36.8 Pulse 69 Resp 14 B/P (MAP) 128/60 (82) Pulse Ox 94 O2 Delivery Room Air General: Alert, Oriented X3, Cooperative HEENT: Atraumatic, PERRLA Neck: Supple, No JVD, No Thyromegaly Lungs: Clear to Auscultation, Normal Air Movement Heart: Regular Rate, Normal S1, Normal S2, No Murmurs Abdomen: Normal Bowel Sounds, Soft, No Tenderness, No Hepatosplenomegaly, No Masses Extremities: No Clubbing, No Cyanosis, No Edema, Normal Pulses, No Tenderness/Swelling Skin: No Rashes, No Breakdown, No Significant Lesion Neuro: Normal Gait, Normal Speech Psych/Mental Status: Mental Status NL, Mood NL A/P-Cardiology Admission Diagnosis PAF Anemia L hip fx Renal insufficiency Assessment/Plan Paroxysmal atrial fibrillation, maintained on Amiodarone 400 BID, Eliqius 5mg BID, Lopressor 12.5 BID. Continue to monitor. [id number] score of 2, yearly risk of stroke without oral anticoagulation is 2.2%. Maintained on Eliquis Anemia, continue to monitor H/H, stool for OB +, management per medical services. Left hip fracture, underwent surgical repair with Dr. Morrison on February 01, 2021, receiving physical therapy Renal insufficiency, monitor renal function. Patient was seen and evaluated with Keke, examination performed, management plan was discussed, agree with the current scribed note, I made few changes to the note using Italic font Patient was receiving physical therapy, doing better, no new complaint. Continue to monitor Monitor electrolytes and EKG KEKE GAYTAN Feb 14, 2021 8:55 am JENNIFER RIVER MD Feb 14, 2021 12:18 pm
--- NOTE | 2021-02-14 08:59 | Occupational Ther Daily Note ---
OT Current Status-Daily Note Subjective Pt AxO, upright in chair. Pt agrees to tx, states 4/10 pain to start. Pt's nurse notified of pain med request. Pt expresses he is getting stronger. Mental Status/Objective Patient Orientation: Person, Place, Situation, Normal For Age ADL-Treatment Therapy Code Descriptions/Definitions Functional [place] Measure: 0=Not Assessed/NA 4=Minimal Assistance 1=Total Assistance 5=Supervision or Setup 2=Maximal Assistance 6=Modified [place] 3=Moderate Assistance 7=Complete IndependenceSCALE: Activities may be completed with or without assistive devices. 7-Hroumkkixh-pthqntd completes the activity by him/herself with no assistance from a helper. 5-Set-up or Clean-up Assistance-helper sets up or cleans up; patient completes activity. [place] assists only prior to or following the activity. 4-Supervision or Touching Assistance-helper provides verbal cues and/or touching/steadying and/or contact guard assistance as patient completes activity. Assistance may be provided throughout the activity or intermittently. 3-Partial/Moderate Assistance-helper does LESS THAN HALF the effort. [place] lifts, holds or supports trunk or limbs, but provides less than half the effort. 2-Substantial/Maximal Assistance-helper does MORE THAN HALF the effort. [place] lifts or holds trunk or limbs and provides more than half the effort. 5-Qmqxnidny-yusmlr does ALL the effort. Patient does none of the effort to complete the activity. Or, the assistance of 2 or more helpers is required for the patient to complete the activity. If activity was not attempted, code reason: 7-Patient Refused. 9-Not Applicable-not attempted and the patient did not perform the activity before the current illness, exacerbation or injury. 10-Not Attempted due to Environmental Limitations-(lack of equipment, weather restraints, etc.). 88-Not Attempted due to Medical Conditions or Safety Concerns. Eating (QC): 6 Oral Hygiene (QC): 4 (SBA in stance, cues for safety (leaning on wall for balance to the R)) Shower/Bathe Self (QC): 7 Upper Body Dressing (QC): 7 Lower Body Dressing (QC): 7 On/Off Footwear: 3 (LOREN hose donned TD. Min A after sock aide donning for adjusting over heel. Educated on heel slides to adjust sock on floor.) Toileting Hygiene (QC): 4 (SUP) Toilet Transfer (QC): 4 (SBA-CGA. Good stability/ fair balance. ) Other Treatment Pt communicates how fall occurred. Denies showering, as he "wiped up this morning," will agree to shower tomorrow per pt. Pt's LOREN hose donned, L sock donned with sock aide/ min A. Pt ambulates with cues for TTWB status to bathroom, oral care/ toileting. Pt ambulates with increased time to gym. Sits, deep breaths, 02 at 92% and gradually rises. Pt completes 15 min minimal resistance arm bike to encourage increased UE and lung endurance. Pt does not require break. However, post task requests immediate drink due to dry throat and 02 at 93% and rises to high 90s within 3 deep breaths. Pt ambulates back, minimal SOB upon sit. Pt's LEs elevated, pillow applied under LEs, all needs met, call light in reach. Education OT Patient Education: Correct positioning, Energy conservation, Exercise program, Modified ADL techniques, Progress toward Goal/Update tx plan, Purpose of tx/functional activities, Reviewed precautions, Safety issues, Transfer techniques, Use of adapted equipment Teaching Recipient: Patient Teaching Methods: Demonstration, Discussion Response to Teaching: Verbalize Understanding, Return Demonstration, Reinforcement Needed OT Short Term Goals Short Term Goals Time Frame: Feb 18, 2021 Eatin Oral hygiene: 5 Toileting hygiene: 4 Shower/bathe self: 3 Upper body dressin Lower body dressin Putting on/taking off footwear: 4 OT Fdc Goals Staff Research Scientist Goals Time Frame: Feb 25, 2021 Eating (QC): 6 Oral Hygiene (QC): 6 Toileting Hygiene (QC): 6 Shower/Bathe Self (QC): 4 Upper Body Dressing (QC): 5 Lower Body Dressing (QC): 4 On/Off Footwear (QC): 6 Additional Goals: 1-Demonstrate ADL Tasks, 2-Verbalize Understanding, 3- ImproveStrength/Molly 1=Demonstrate adherence to instructed precautions during ADL tasks. 2=Patient will verbalize/demonstrate understanding of assistive devices/modifications for ADL. 3=Patient will improve strength/tolerance for activity to enable patient to perform ADL's. OT Education/Plan Problem List/Assessment Assessment: Decreased Activ Tolerance, Decreased UE Strength, Dependent Transf ers, Edema, Impaired Funct Balance, Impaired I ADL's, Impaired Self-Care Skills Discharge Recommendations Plan/Recommendations: Continue POC Therapy Discharge Recommendati: Home & Family, Post Acute OT Treatment Plan/Plan of Care Treatment,Training & Education: Yes Patient would benefit from OT for education, treatment and training to promote independence in ADL's, mobility, safety and/or upper extremity function for A DL's. Plan of Care: ADL Retraining, Functional Mobility, UE Funct Exercise/Act Treatment Duration: Feb 25, 2021 Frequency: At least 5 of 7 days/Wk (IRF) Estimated Hrs Per Day: 1.5 hours per day Agreement: Yes Rehab Potential: Good Time/GCodes Start Time: 07:45 Stop Time: 09:00 Total Time Billed (hr/min): 75 Billed Treatment Time 1, ADL 2, EX 3 (75) MARIE THURSTON OTR Feb 14, 2021 08:59
[2021-02-14] MEDS: IRON SUCROSE 200 MG/10 ML (VENOFER) VIAL IV SCH (09:16)
[2021-02-14] MEDS ORDERED: guaiFENesin (MUCINEX) 600 MG TAB PO ONE (11:30)
--- NOTE | 2021-02-14 11:34 | Physical Therapy Daily Note ---
PT Daily Note-Current Subjective Patient in recliner pre tx, agrees to PT, has 7/10 pain in left hip. Appearance Patient in recliner post tx with nurse call, phone, tray, all needs met. Mental Status Patient Orientation: Person, Place, Situation Transfers SCALE: Activities may be completed with or without assistive devices. 5-Bngnmeogvd-xvyadkc completes the activity by him/herself with no assistance from a helper. 5-Set-up or Clean-up Assistance-helper sets up or cleans up; patient completes activity. [place] assists only prior to or following the activity. 4-Supervision or Touching Assistance-helper provides verbal cues and/or randall leah/steadying and/or contact guard assistance as patient completes activity. Assistance may be provided throughout the activity or intermittently. 3-Partial/Moderate Assistance-helper does LESS THAN HALF the effort. [place] lifts, holds or supports trunk or limbs, but provides less than half the effort. 2-Substantial/Maximal Assistance-helper does MORE THAN HALF the effort. [place] lifts or holds trunk or limbs and provides more than half the effort. 2-Aatyehapw-qifuqp does ALL the effort. Patient does none of the effort to complete the activity. Or, the assistance of 2 or more helpers is required for the patient to complete the activity. If activity was not attempted, code reason: 7-Patient Refused. 9-Not Applicable-not attempted and the patient did not perform the activity before the current illness, exacerbation or injury. 10-Not Attempted due to Environmental Limitations-(lack of equipment, weather restraints, etc.). 88-Not Attempted due to Medical Conditions or Safety Concerns. Roll Left & Right (QC): 6 Sit to Lying (QC): 3 Lying to Sitting/Side of Bed(Q: 6 Sit to Stand (QC): 4 Chair/Job-ja-Phygp Xfer(QC): 4 Weight Bearing Right Lower Extremity: Right Full Weight Bearing Left Lower Extremity: Left Touch Toe Bearing Gait Training Distance: 120'x2 Walk 10 feet (QC): 4 Walk 50 ft with 2 Turns(QC): 4 Gait Persons Needed: 1 Gait Assistive Device: FWW SBA, slow but steady ambulation, compliant with TTWB on the left side, patient is very fatigued after ambulating this distance Exercises Supine Ex: Ankle pumps, Quad Set, Glut sets, Heel Slides (AAROM), Short Arc Quads, Straight leg raise (AAROM), Hip abd/add (AAROM) Supine Reps: 20 (LLE only except for AP, QS, GS) Seated Therapy Exercises: Ankle pumps, Hip flexion, Hip abd/add (with ball and RTB) Seated Reps: 20 Standing: Hamstring curls (LLE), Heel/toe raises (RLE), 3 way Ex=Flex, Abd, Ext (LLE) LAQ LLE for 5 min, sit <-> stand from slightly elevated therapy table maintaining TTWB on the left side 3 sets of 10 NuStep Minutes: 15 NuStep Workload: 4 (LLE kept off machine) Treatments bed mobility and transfers, ambulation, LE strengthening Assessment Current Status: Fair Progress Patient gets pretty SOB with activity, needs frequent rest breaks to recover, also has to have rest breaks due to left hip pain. 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 Chcf Goals 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 Time Frame: Mar 09, 2021 Roll Left & Right (QC): 5 Sit to Lying (QC): 5 Lying-Sitting on Side/Bed(QC): 5 Sit to Stand (QC): 5 Chair/Dba-bv-Kgigq Xfer(QC): 5 Toilet Transfer (QC): 5 Car Transfer (QC): 5 Does the Patient Walk: Yes Walk 10 feet (QC): 5 Walk 50ft with 2 Turns (QC): 5 Walk 150 ft (QC): 5 Walking 10ft on Uneven Surface: 5 1 Step (curb) (QC): 5 4 Steps (QC): 5 12 Steps (QC): 88 Picking up an Object (QC): 5 Wheel 50 feet with 2 turns (QC: 9 Type: N/A Wheel 150 feet: 9 Type: N/A PT Plan Problem List Problem List: Activity Tolerance, Functional Strength, Safety, Balance, Gait, Transfer, Bed Mobility, ROM Treatment/Plan Treatment Plan: Continue Plan of Care Treatment Plan: Bed Mobility, Concurrent Therapy, Education, Functional Activity Molly, Functional Strength, Group Therapy, Gait, Safety, Therapeutic Exercise, Transfers Treatment Duration: Mar 09, 2021 Frequency: At least 5 of 7 days/Wk (IRF) Estimated Hrs Per Day: 1.5 hours per day Patient and/or Family Agrees t: Yes Safety Risks/Education Patient Education: Gait Training, Transfer Techniques, Reviewed Precautions, Correct Positioning, Safety Issues Teaching Recipient: Patient Teaching Methods: Demonstration, Discussion Response to Teaching: Reinforcement Needed Time/GCodes Time In: 1015 Time Out: 1145 Total Billed Treatment Time: 90 Total Billed Treatment 1 visit FA 30' EX 60' CHRISTIE HERRERA PT Feb 14, 2021 11:34
--- NOTE | 2021-02-14 13:26 | Occupational Ther Daily Note ---
OT Current Status-Daily Note Subjective Pt alert, sitting up in recliner. No c/o pain. Agrees to work for therapy. Mental Status/Objective Patient Orientation: Person, Place, Time, Situation ADL-Treatment Therapy Code Descriptions/Definitions Functional [place] Measure: 0=Not Assessed/NA 4=Minimal Assistance 1=Total Assistance 5=Supervision or Setup 2=Maximal Assistance 6=Modified [place] 3=Moderate Assistance 7=Complete IndependenceSCALE: Activities may be completed with or without assistive devices. 8-Enuyiostsm-jetwcss completes the activity by him/herself with no assistance from a helper. 5-Set-up or Clean-up Assistance-helper sets up or cleans up; patient completes activity. [place] assists only prior to or following the activity. 4-Supervision or Touching Assistance-helper provides verbal cues and/or touching/steadying and/or contact guard assistance as patient completes activity. Assistance may be provided throughout the activity or intermittently. 3-Partial/Moderate Assistance-helper does LESS THAN HALF the effort. [place] lifts, holds or supports trunk or limbs, but provides less than half the effort. 2-Substantial/Maximal Assistance-helper does MORE THAN HALF the effort. [place] lifts or holds trunk or limbs and provides more than half the effort. 9-Kkqpsmqrd-dfwhle does ALL the effort. Patient does none of the effort to complete the activity. Or, the assistance of 2 or more helpers is required for the patient to complete the activity. If activity was not attempted, code reason: 7-Patient Refused. 9-Not Applicable-not attempted and the patient did not perform the activity before the current illness, exacerbation or injury. 10-Not Attempted due to Environmental Limitations-(lack of equipment, weather restraints, etc.). 88-Not Attempted due to Medical Conditions or Safety Concerns. Other Treatment Pt given 2lb hand wts to use in room to increase B UE strengthening. Pt educated on 3 exercises and how to use the correct technique, bicep curls, overhead tricep ext and butterfly. Pt demonstrated and verbalized understanding. After therapy, pt sitting in recliner eating lunch. Call light/phone in reach. All needs met in room. OT Short Term Goals Short Term Goals Time Frame: Feb 18, 2021 Eatin Oral hygiene: 5 Toileting hygiene: 4 Shower/bathe self: 3 Upper body dressin Lower body dressin Putting on/taking off footwear: 4 OT Intermediate Goals Intermediate Goals Time Frame: Feb 25, 2021 Eating (QC): 6 Oral Hygiene (QC): 6 Toileting Hygiene (QC): 6 Shower/Bathe Self (QC): 4 Upper Body Dressing (QC): 5 Lower Body Dressing (QC): 4 On/Off Footwear (QC): 6 Additional Goals: 1-Demonstrate ADL Tasks, 2-Verbalize Understanding, 3- ImproveStrength/Molly 1=Demonstrate adherence to instructed precautions during ADL tasks. 2=Patient will verbalize/demonstrate understanding of assistive devices/modifications for ADL. 3=Patient will improve strength/tolerance for activity to enable patient to perform ADL's. OT Education/Plan Problem List/Assessment Assessment: Decreased UE Strength Discharge Recommendations Plan/Recommendations: Continue POC Treatment Plan/Plan of Care Patient would benefit from OT for education, treatment and training to promote independence in ADL's, mobility, safety and/or upper extremity function for ADL's. Plan of Care: ADL Retraining, Functional Mobility, UE Funct Exercise/Act Treatment Duration: Feb 25, 2021 Frequency: At least 5 of 7 days/Wk (IRF) Estimated Hrs Per Day: 1.5 hours per day Agreement: Yes Rehab Potential: Good Time/GCodes Start Time: 13:00 Stop Time: 13:15 Total Time Billed (hr/min): 15 Billed Treatment Time 1 visit-EX 1 (15 min) LOREN SHANNON Feb 14, 2021 13:25
[2021-02-14] MEDS: polyethylene glycoL POWDER 17 GM (MIRALAX) PACK PO SCH (19:47)
[2021-02-14 20:00] VITALS: BP 115/53
[2021-02-14] MEDS: guaiFENesin (MUCINEX) 600 MG TAB PO SCH (20:18)
[2021-02-15] MEDS: RT-ALBUTEROL/IPRATROPIUM 3 ML (DUONEB) VIAL INH SCH ×3 (06:39→21:30)
--- NOTE | 2021-02-15 06:50 | PM&R Progress Note ---
Subjective HPI/CC On Admission Date Seen by Provider: Feb 15, 2021 Time Seen by Provider: 11:30 Subjective/Events-last exam 02/15/21: Patient stable Hip pain increased today Pain meds given No issues 02/14/2021: Bowels are moving good IV iron infusion maintained Feels stronger No AF with RVR noted 02/13/2021: Pt doing pretty well Pain is managed with Oxycodone IV iron infusions maintained Normal sinus rhythm on telemetry so with DC telemetry 02/12/2021: Pt doing pretty well Had a bowel movement today Hemoglobin 9.0 IV iron will be restarted Creatinine at 1.41, will monitor that closely A fib is well controlled Review of Systems General: Fatigue Musculoskeletal: leg pain Objective Exam Vital Signs Vital Signs Date Time Temp Pulse Resp B/P (MAP) Pulse Ox O2 Delivery O2 Flow Rate FiO2 02/15/21 21:33 94 Room Air 02/15/21 20:00 36.8 67 18 106/53 (70) 02/14/21 14:41 21 Capillary Refill : General Appearance: No Apparent Distress, WD/WN, Chronically ill HEENT: PERRL/EOMI, Normal ENT Inspection, Pharynx Normal Neck: Full Range of Motion, Normal Inspection, Non Tender, Supple, Carotid Bruit Respiratory: Chest Non Tender, Lungs Clear, Normal Breath Sounds, No Accessory Muscle Use, No Respiratory Distress Cardiovascular: Regular Rate, Rhythm, No Edema, No Gallop, No JVD, No Murmur, Normal Peripheral Pulses Gastrointestinal: Normal Bowel Sounds, No Organomegaly, No Pulsatile Mass, Non Tender, Soft Back: Normal Inspection, No CVA Tenderness, No Vertebral Tenderness Extremity: Normal Capillary Refill, Normal Inspection, Normal Range of Motion, Non Tender, No Calf Tenderness, No Pedal Edema Neurologic/Psychiatric: Alert, Oriented x3, No Motor/Sensory Deficits, 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 FIM Transfers Therapy Code Descriptions/Definitions Functional [place] Measure: 0=Not Assessed/NA 4=Minimal Assistance 1=Total Assistance 5=Supervision or Setup 2=Maximal Assistance 6=Modified [place] 3=Moderate Assistance 7=Complete IndependenceSCALE: Activities may be completed with or without assistive devices. 3-Fwuolaanyj-unedbsg completes the activity by him/herself with no assistance from a helper. 5-Set-up or Clean-up Assistance-helper sets up or cleans up; patient completes activity. [place] assists only prior to or following the activity. 4-Supervision or Touching Assistance-helper provides verbal cues and/or touching/steadying and/or contact guard assistance as patient completes activity. Assistance may be provided throughout the activity or intermittently. 3-Partial/Moderate Assistance-helper does LESS THAN HALF the effort. [place] lifts, holds or supports trunk or limbs, but provides less than half the effort. 2-Substantial/Maximal Assistance-helper does MORE THAN HALF the effort. [place] lifts or holds trunk or limbs and provides more than half the effort. 0-Ezvkwoiom-oofsdx does ALL the effort. Patient does none of the effort to complete the activity. Or, the assistance of 2 or more helpers is required for the patient to complete the activity. If activity was not attempted, code reason: 7-Patient Refused. 9-Not Applicable-not attempted and the patient did not perform the activity before the current illness, exacerbation or injury. 10-Not Attempted due to Environmental Limitations-(lack of equipment, weather restraints, etc.). 88-Not Attempted due to Medical Conditions or Safety Concerns. Roll Left to Right (QC): 6 Sit to Lying (QC): 3 Sit to Stand (QC): 4 Chair/Gbt-yb-Fporu Xfer(QC): 4 Car Transfer (QC): 4 Gait Training Does the Patient Walk?: Yes Distance: 120'x2 Walk 10 feet (QC): 4 Walk 50 ft with 2 Turns(QC): 4 Walk 150 ft (QC): 5 Walking 10ft/uneven surface-QC: 3 Gait Persons Needed: 1 Gait Assistive Device: FWW Wheelchair Training Does the Pt Use a Wheelchair?: Yes Distance: 10' Wheel 50 ft with 2 turns (QC): 88 Wheel 150 ft (QC): 88 Type of Wheelchair: Manual Stair Training #of Steps: 1 1 Step (curb) (QC): 3 4 Steps (QC): 88 12 Steps (QC): 88 Balance Picking up an Object (QC): 4 (in seated position) ADL-Treatment Eating (QC): 6 Oral Hygiene (QC): 4 (SBA in stance, cues for safety (leaning on wall for yesenia ce to the R)) Shower/Bathe Self (QC): 7 Upper Body Dressing (QC): 7 Lower Body Dressing (QC): 7 On/Off Footwear (QC): 3 (LOREN hose donned TD. Min A after sock aide donning for adjusting over heel. Educated on heel slides to adjust sock on floor.) Toileting Hygiene (QC): 4 (SUP) Toilet Transfer (QC): 4 (SBA-CGA. Good stability/ fair balance. ) Assessment/Plan Assessment and Plan Assess & Plan/Chief Complaint Assessment: Severe debility due to left hip fracture Atrial fibrillation with rapid ventricular response requiring transfer to the ICU 02/06/21 and discharged from inpatient rehab since less than 3 days of admission Displaced and comminuted intertrochanteric fracture of the left femur status post uncomplicated repair 02/01/21 status post repair by Dr. BERNAL New onset episode of atrial fibrillation with rapid ventricular rate requiring ICU admission 02/04/21 and Cardizem drip Postop anemia from acute blood loss requiring 4 units of blood in total Severe postop constipation now resolved Plan: Inpatient rehab protocol Pain control Monitor hemoglobin Monitor atrial fibrillation Appreciate cardiology consultation 02/12/2021: Monitor atrial fibrillation with telemetry Supportive care PT and OT per protocol Pain control 02/13/2021: Pain control Rehab protocol Fall risk 02/14/2021: Pain control IV iron infusions Monitor A. fib 02/15/21: Pain meds effective Monitor for AF (1) Intertrochanteric fracture of left femur Status: Acute (2) Atrial fibrillation with RVR Status: Acute (3) MERVIN (acute kidney injury) Status: Acute (4) Postoperative anemia Status: Acute APRYL KAMINSKI DO Feb 15, 2021 06:50
[2021-02-15 08:00] VITALS: BP 120/57
[2021-02-15] MEDS: meTOprolol TARTRATE 25 MG (LOPRESSOR) TABLET PO SCH ×2 (08:01→21:07)
[2021-02-15] MEDS: AMIODARONE 200 MG (CORDARONE) TAB PO SCH ×2 (08:01→21:06)
[2021-02-15] MEDS: APIXABAN 5 MG (ELIQUIS) TABLET PO SCH ×2 (08:01→21:06)
[2021-02-15] MEDS: guaiFENesin (MUCINEX) 600 MG TAB PO SCH ×2 (08:02→21:06)
[2021-02-15] MEDS: PANTOPRAZOLE 40 MG (PROTONIX) TAB PO SCH (08:02)
[2021-02-15] MEDS: SENNA W/DOCUSATE (SENOKOT S) TABLET PO SCH ×2 (08:20→21:06)
[2021-02-15] MEDS: DOCUSATE SODIUM 100 MG (COLACE) CAP PO SCH ×2 (08:20→21:07)
--- NOTE | 2021-02-15 08:21 | Cardiology Progress Note ---
Subjective Date Seen by Provider: Feb 15, 2021 Time Seen by Provider: 08:21 Subjective/Events-last exam Patient with PT, no new complaints. Denies any chest pain or dyspnea. Review of Systems General: No Chills, No Night Sweats, No Fatigue, No Malaise, No Appetite, No Other HEENT: No Head Aches, No Visual Changes, No Eye Pain, No Ear Pain, No Dysphasia, No Sinus Congestion, No Post Nasal Drip, No Sore Throat, No Other Pulmonary: No Dyspnea, No Cough, No Pleuritic Chest Pain, No Other Cardiovascular: No: Chest Pain, Palpitations, Orthopnea, Paroxysmal Noc. Dyspnea, Edema, Lt Headedness, Other Objective-Cardiology Exam Last Set of Vital Signs Vital Signs 02/14/21 02/15/21 02/15/21 14:41 08:00 08:22 Temp 36.2 Pulse 73 Resp 16 B/P (MAP) 120/57 (78) Pulse Ox 94 O2 Delivery Room Air FiO2 21 General: Alert, Oriented X3, Cooperative HEENT: Atraumatic, PERRLA Neck: Supple, No JVD, No Thyromegaly Lungs: Clear to Auscultation, Normal Air Movement Heart: Regular Rate, Normal S1, Normal S2, No Murmurs Abdomen: Normal Bowel Sounds, Soft, No Tenderness, No Hepatosplenomegaly, No Masses Extremities: No Clubbing, No Cyanosis, No Edema, Normal Pulses, No Tenderness/Swelling Skin: No Rashes, No Breakdown, No Significant Lesion Neuro: Normal Gait, Normal Speech Psych/Mental Status: Mental Status NL, Mood NL A/P-Cardiology Admission Diagnosis PAF Anemia L hip fx Renal insufficiency Assessment/Plan Paroxysmal atrial fibrillation, maintained on Amiodarone 400 BID, Eliqius 5mg BID, Lopressor 12.5 BID. Continue to monitor. [id number] score of 2, yearly risk of stroke without oral anticoagulation is 2.2%. Maintained on Eliquis Anemia, continue to monitor H/H, stool for OB +, management per medical services. Left hip fracture, underwent surgical repair with Dr. Morrison on February 01, 2021, receiving physical therapy Renal insufficiency, monitor renal function. Patient was seen and evaluated with Keke, examination performed, management plan was discussed, agree with the current scribed note, I made few changes to the note using Italic font Patient was seen at bedside, sitting comfortably, feeling better. No new complaint. Continue to monitor. No changes are recommended Supervisory-Addendum Brief Supervisory Addendum Participated in pt care: history, MDM, physical Personally performed: exam, history, MDM Care discussed with: KEKE SALGUERO Feb 15, 2021 8:21 am JENNIFER RIVER MD Feb 15, 2021 1:31 pm
[2021-02-15] MEDS: HYDROcodone/APAP 5 MG/325 MG (LORTAB) TAB PO PRN ×2 (09:01→13:38)
--- NOTE | 2021-02-15 09:08 | Occupational Ther Daily Note ---
OT Current Status-Daily Note Subjective Pt AxO, upright in chair, agrees to tx. Pt states 3/10 pain in L hip. Mental Status/Objective Patient Orientation: Person, Place, Situation, Normal For Age ADL-Treatment Therapy Code Descriptions/Definitions Functional [place] Measure: 0=Not Assessed/NA 4=Minimal Assistance 1=Total Assistance 5=Supervision or Setup 2=Maximal Assistance 6=Modified [place] 3=Moderate Assistance 7=Complete IndependenceSCALE: Activities may be completed with or without assistive devices. 8-Kqgbaurwsc-lnayydb completes the activity by him/herself with no assistance from a helper. 5-Set-up or Clean-up Assistance-helper sets up or cleans up; patient completes activity. [place] assists only prior to or following the activity. 4-Supervision or Touching Assistance-helper provides verbal cues and/or touchin g/steadying and/or contact guard assistance as patient completes activity. Assistance may be provided throughout the activity or intermittently. 3-Partial/Moderate Assistance-helper does LESS THAN HALF the effort. [place] lifts, holds or supports trunk or limbs, but provides less than half the effort. 2-Substantial/Maximal Assistance-helper does MORE THAN HALF the effort. [place] lifts or holds trunk or limbs and provides more than half the effort. 8-Atwratqdt-viysog does ALL the effort. Patient does none of the effort to complete the activity. Or, the assistance of 2 or more helpers is required for the patient to complete the activity. If activity was not attempted, code reason: 7-Patient Refused. 9-Not Applicable-not attempted and the patient did not perform the activity before the current illness, exacerbation or injury. 10-Not Attempted due to Environmental Limitations-(lack of equipment, weather restraints, etc.). 88-Not Attempted due to Medical Conditions or Safety Concerns. Eating (QC): 6 Oral Hygiene (QC): 4 (SBA at sink) Bathing Location: L Arm, R Arm, L Upper Leg, R Upper Leg, L Lower Leg (including foot), R Lower Leg (including foot), Chest, Abdomen, Buttocks, Perineal Area Shower/Bathe Self (QC): 4 (SBA shower transfer. Mod I while seated on sc (use of LHS) and SBA in stance for bottom care.) Upper Body Dressing (QC): 5 (s/u) Lower Body Dressing (QC): 4 (SBA and cues for L before R, cues for placement) Toileting Hygiene (QC): 4 (SBA in stance for bottom care.) Toilet Transfer (QC): 4 (SBA) Other Treatment Pt alert, agrees to tx. Pt desires shower this am. Pt sit to stands with SBA, ambulation with SBA-CGA and cues for TTWB minimally. Pt completes showering/ dressing as outlined. Then rests in chair, SOB upon sit but recovers quickly. OT completes manual edema massage to LLE for 10 minutes, use of LOREN hose post activity. Pt educated on use of calf pumps. Pt ambulates to laundry room, rests, then completes laundry routine with min A (washing/ cues). Pt ambulates back without rest, sits in recliner, all needs met, call light in reach. LEs elevated with pillow under LLE. Education OT Patient Education: Correct positioning, Modified ADL techniques, Progress toward Goal/Update tx plan, Purpose of tx/functional activities, Safety issues, Transfer techniques Teaching Recipient: Patient Teaching Methods: Demonstration, Discussion Response to Teaching: Verbalize Understanding, Return Demonstration OT Short Term Goals Short Term Goals Time Frame: Feb 18, 2021 Eatin Oral hygiene: 5 Toileting hygiene: 4 Shower/bathe self: 3 Upper body dressin Lower body dressin Putting on/taking off footwear: 4 OT Quill Fixer Goals Retirement Goals Time Frame: Feb 25, 2021 Eating (QC): 6 Oral Hygiene (QC): 6 Toileting Hygiene (QC): 6 Shower/Bathe Self (QC): 4 Upper Body Dressing (QC): 5 Lower Body Dressing (QC): 4 On/Off Footwear (QC): 6 Additional Goals: 1-Demonstrate ADL Tasks, 2-Verbalize Understanding, 3- ImproveStrength/Molly 1=Demonstrate adherence to instructed precautions during ADL tasks. 2=Patient will verbalize/demonstrate understanding of assistive dev ices/modifications for ADL. 3=Patient will improve strength/tolerance for activity to enable patient to perform ADL's. OT Education/Plan Problem List/Assessment Assessment: Decreased Activ Tolerance, Decreased UE Strength, Dependent Transfers, Impaired Funct Balance, Impaired I ADL's, Impaired Self-Care Skills Discharge Recommendations Plan/Recommendations: Continue POC Therapy Discharge Recommendati: Home & Family, Post Acute OT Equpiment Recommendations-D/C: Rails on Tub/Shower, Bath Chair, Labels Molder, Sock Aide Treatment Plan/Plan of Care Treatment,Training & Education: Yes Patient would benefit from OT for education, treatment and training to promote independence in ADL's, mobility, safety and/or upper extremity function for AD L's. Plan of Care: ADL Retraining, Functional Mobility, UE Funct Exercise/Act Treatment Duration: Feb 25, 2021 Frequency: At least 5 of 7 days/Wk (IRF) Estimated Hrs Per Day: 1.5 hours per day Agreement: Yes Rehab Potential: Good Time/GCodes Start Time: 07:20 Stop Time: 08:20 Total Time Billed (hr/min): 60 Billed Treatment Time 1, ADL 3 (45), FA (15)= 60 MARIE THURSTON OTR Feb 15, 2021 09:08
--- NOTE | 2021-02-15 09:56 | Physical Therapy Daily Note ---
PT Daily Note-Current Subjective Patient c/o 5/10 left hip pain. RN issued pain medication. Pain Numeric Pain Scale: 5-Moderate Pain Location: Left Location Body Site: Hip Pain Description: Ache Mental Status Patient Orientation: Normal For Age Transfers SCALE: Activities may be completed with or without assistive devices. 3-Ivkcjqpgxd-cnmxkbp completes the activity by him/herself with no assistance from a helper. 5-Set-up or Clean-up Assistance-helper sets up or cleans up; patient completes activity. [place] assists only prior to or following the activity. 4-Supervision or Touching Assistance-helper provides verbal cues and/or touching/steadying and/or contact guard assistance as patient completes activity. Assistance may be provided throughout the activity or intermittently. 3-Partial/Moderate Assistance-helper does LESS THAN HALF the effort. [place] lifts, holds or supports trunk or limbs, but provides less than half the effort. 2-Substantial/Maximal Assistance-helper does MORE THAN HALF the effort. [place] lifts or holds trunk or limbs and provides more than half the effort. 3-Zaikecagj-tkwshc does ALL the effort. Patient does none of the effort to co mplete the activity. Or, the assistance of 2 or more helpers is required for the patient to complete the activity. If activity was not attempted, code reason: 7-Patient Refused. 9-Not Applicable-not attempted and the patient did not perform the activity before the current illness, exacerbation or injury. 10-Not Attempted due to Environmental Limitations-(lack of equipment, weather restraints, etc.). 88-Not Attempted due to Medical Conditions or Safety Concerns. Sit to Stand (QC): 4 (SBA) Weight Bearing Right Lower Extremity: Right Full Weight Bearing Left Lower Extremity: Left Touch Toe Bearing Gait Training Does the Patient Walk?: Yes Distance: 150' x 1/200' x 1/300' x 1 Walk 10 feet (QC): 4 (SBA) Walk 50 ft with 2 Turns(QC): 4 (SBA) Walk 150 ft (QC): 4 (SBA) Gait Assistive Device: FWW slow, step to gait sequence Exercises Seated Therapy Exercises: Ankle pumps, Long arc quads, Shoulder Abd Seated Reps: 15 (4 sets) NuStep Minutes: 15 NuStep Workload: 3 (to improve mobility and strength) Assessment Patient requires seated recovery periods due to SOA and fatigue. Patient had decrease c/o left hip pain at the end of session 10/24. PT Data Support Specialist Goals Data Support Specialist Goals PT Intermediate Goals Time Frame: Mar 09, 2021 Roll Left & Right (QC): 5 Sit to Lying (QC): 5 Lying-Sitting on Side/Bed(QC): 5 Sit to Stand (QC): 5 Chair/Lww-vt-Clyvk Xfer(QC): 5 Toilet Transfer (QC): 5 Car Transfer (QC): 5 Does the Patient Walk: Yes Walk 10 feet (QC): 5 Walk 50ft with 2 Turns (QC): 5 Walk 150 ft (QC): 5 Walking 10ft on Uneven Surface: 5 1 Step (curb) (QC): 5 4 Steps (QC): 5 12 Steps (QC): 88 Picking up an Object (QC): 5 Wheel 50 feet with 2 turns (QC: 9 Type: N/A Wheel 150 feet: 9 Type: N/A PT Plan Treatment/Plan Treatment Plan: Continue Plan of Care Treatment Plan: Bed Mobility, Concurrent Therapy, Education, Functional Activity Molly, Functional Strength, Group Therapy, Gait, Safety, Therapeutic Exercise, Transfers Treatment Duration: Mar 09, 2021 Frequency: At least 5 of 7 days/Wk (IRF) Estimated Hrs Per Day: 1.5 hours per day Patient and/or Family Agrees t: Yes Time/GCodes Time In: 850 Time Out: 950 Total Billed Treatment Time: 60 Total Billed Treatment 1 visit GT x 2 30 min EX x 2 30 min SHABBIR HOWARD PT Feb 15, 2021 09:56
--- NOTE | 2021-02-15 13:19 | Occupational Ther Daily Note ---
OT Current Status-Daily Note Subjective Pt AxO, states minimal pain, states some fatigue since PT session earlier this am. Pt expresses readiness for OT session. Mental Status/Objective Patient Orientation: Person, Place, Situation, Normal For Age ADL-Treatment Therapy Code Descriptions/Definitions Functional [place] Measure: 0=Not Assessed/NA 4=Minimal Assistance 1=Total Assistance 5=Supervision or Setup 2=Maximal Assistance 6=Modified [place] 3=Moderate Assistance 7=Complete IndependenceSCALE: Activities may be completed with or without assistive devices. 8-Zeyinufdjw-omfasvr completes the activity by him/herself with no assistance from a helper. 5-Set-up or Clean-up Assistance-helper sets up or cleans up; patient completes activity. [place] assists only prior to or following the activity. 4-Supervision or Touching Assistance-helper provides verbal cues and/or touching/steadying and/or contact guard assistance as patient completes activity. Assistance may be provided throughout the activity or intermittently. 3-Partial/Moderate Assistance-helper does LESS THAN HALF the effort. [place] lifts, holds or supports trunk or limbs, but provides less than half the effort. 2-Substantial/Maximal Assistance-helper does MORE THAN HALF the effort. [place] lifts or holds trunk or limbs and provides more than half the effort. 5-Qzxnyxrpc-ocayok does ALL the effort. Patient does none of the effort to complete the activity. Or, the assistance of 2 or more helpers is required for the patient to complete the activity. If activity was not attempted, code reason: 7-Patient Refused. 9-Not Applicable-not attempted and the patient did not perform the activity before the current illness, exacerbation or injury. 10-Not Attempted due to Environmental Limitations-(lack of equipment, weather restraints, etc.). 88-Not Attempted due to Medical Conditions or Safety Concerns. Eating (QC): 6 Toileting Hygiene (QC): 6 Toilet Transfer (QC): 4 Other Treatment Pt completes ambulation to the laundry room from sit to stand SBA. Use of walker for compensation for TTWB. Pt is educated on positioning of walker in front of washer for safe reaching into low dryer. Pt completes with SBA. Returns to room with one rest break for breathing. Pt expresses fatigue. Returns to room, completes toileting with increased time with SBA-SUP. Pt returns to chair, pt expresses he ordered fruit cup for lunch. Pt is encouraged to eat additional vitamins/ protein for mm recovery. Pt agrees, orders additional food with cues for phone use. All needs met, call light in reach, LEs not elevated. Education OT Patient Education: Correct positioning, Energy conservation, Progress toward Goal/Update tx plan, Purpose of tx/functional activities, Reviewed precautions, Safety issues, Transfer techniques Teaching Recipient: Patient Teaching Methods: Demonstration, Discussion Response to Teaching: Verbalize Understanding, Return Demonstration OT Short Term Goals Short Term Goals Time Frame: Feb 18, 2021 Eatin Oral hygiene: 5 Toileting hygiene: 4 Shower/bathe self: 3 Upper body dressin Lower body dressin Putting on/taking off footwear: 4 OT Half-Way Goals Half-Way Goals Time Frame: Feb 25, 2021 Eating (QC): 6 Oral Hygiene (QC): 6 Toileting Hygiene (QC): 6 Shower/Bathe Self (QC): 4 Upper Body Dressing (QC): 5 Lower Body Dressing (QC): 4 On/Off Footwear (QC): 6 Additional Goals: 1-Demonstrate ADL Tasks, 2-Verbalize Understanding, 3- ImproveStrength/Molly 1=Demonstrate adherence to instructed precautions during ADL tasks. 2=Patient will verbalize/demonstrate understanding of assistive devices/modifications for ADL. 3=Patient will improve strength/tolerance for activity to enable patient to perform ADL's. OT Education/Plan Problem List/Assessment Assessment: Decreased Activ Tolerance, Decreased UE Strength, Dependent Transfers, Edema, Impaired Funct Balance, Impaired I ADL's, Impaired Self-Care Skills Discharge Recommendations Plan/Recommendations: Continue POC Therapy Discharge Recommendati: Home & Family, Post Acute OT Treatment Plan/Plan of Care Treatment,Training & Education: Yes Patient would benefit from OT for education, treatment and training to promote independence in ADL's, mobility, safety and/or upper extremity function for ADL's. Plan of Care: ADL Retraining, Functional Mobility, UE Funct Exercise/Act Treatment Duration: Feb 25, 2021 Frequency: At least 5 of 7 days/Wk (IRF) Estimated Hrs Per Day: 1.5 hours per day Agreement: Yes Rehab Potential: Good Time/GCodes Start Time: 11:35 Stop Time: 12:05 Total Time Billed (hr/min): 30 Billed Treatment Time 1, FA, ADL (30) MARIE THURSTON OTR Feb 15, 2021 13:19
--- NOTE | 2021-02-15 14:04 | Physical Therapy Daily Note ---
PT Daily Note-Current Subjective Patient in recliner pre tx, agrees to PT, has 7/10 pain in left hip, nurse notified and she got him pain med. Appearance Patient in bed post tx with nurse call, phone, tray, all needs met. Mental Status Patient Orientation: Person, Place, Situation Transfers SCALE: Activities may be completed with or without assistive devices. 7-Ycgjaarhkc-xflmive completes the activity by him/herself with no assistance from a helper. 5-Set-up or Clean-up Assistance-helper sets up or cleans up; patient completes activity. [place] assists only prior to or following the activity. 4-Supervision or Touching Assistance-helper provides verbal cues and/or touching/steadying and/or contact guard assistance as patient completes activity. Assistance may be provided throughout the activity or intermittently. 3-Partial/Moderate Assistance-helper does LESS THAN HALF the effort. [place] lifts, holds or supports trunk or limbs, but provides less than half the effort. 2-Substantial/Maximal Assistance-helper does MORE THAN HALF the effort. [place] lifts or holds trunk or limbs and provides more than half the effort. 3-Vppaziqfs-wetuym does ALL the effort. Patient does none of the effort to complete the activity. Or, the assistance of 2 or more helpers is required for the patient to complete the activity. If activity was not attempted, code reason: 7-Patient Refused. 9-Not Applicable-not attempted and the patient did not perform the activity before the current illness, exacerbation or injury. 10-Not Attempted due to Environmental Limitations-(lack of equipment, weather restraints, etc.). 88-Not Attempted due to Medical Conditions or Safety Concerns. Roll Left & Right (QC): 6 Sit to Lying (QC): 3 Lying to Sitting/Side of Bed(Q: 3 Sit to Stand (QC): 4 Chair/Kwp-xo-Oidje Xfer(QC): 4 Weight Bearing Right Lower Extremity: Right Full Weight Bearing Left Lower Extremity: Left Touch Toe Bearing Gait Training Distance: 120'x2 Walk 10 feet (QC): 4 Walk 50 ft with 2 Turns(QC): 4 Gait Persons Needed: 1 Gait Assistive Device: FWW slow, antalgic, compliant with TTWB on the left side Exercises Supine Ex: Ankle pumps, Quad Set, Glut sets, Heel Slides, Short Arc Quads, Straight leg raise (AAROM), Hip abd/add (AAROM) Supine Reps: 20 (all on LLE except for AP, QS, GS which were done bilaterally.) Treatments bed mobility and transfers, ambulation, LE strengthening Assessment Current Status: Fair Progress good ambulation, compliant with precautions PT [facility] Goals Housing Director Goals PT Housing Director Goals Time Frame: Mar 09, 2021 Roll Left & Right (QC): 5 Sit to Lying (QC): 5 Lying-Sitting on Side/Bed(QC): 5 Sit to Stand (QC): 5 Chair/Jwc-pa-Jaafg Xfer(QC): 5 Toilet Transfer (QC): 5 Car Transfer (QC): 5 Does the Patient Walk: Yes Walk 10 feet (QC): 5 Walk 50ft with 2 Turns (QC): 5 Walk 150 ft (QC): 5 Walking 10ft on Uneven Surface: 5 1 Step (curb) (QC): 5 4 Steps (QC): 5 12 Steps (QC): 88 Picking up an Object (QC): 5 Wheel 50 feet with 2 turns (QC: 9 Type: N/A Wheel 150 feet: 9 Type: N/A PT Plan Problem List Problem List: Activity Tolerance, Functional Strength, Safety, Balance, Gait, Transfer, Bed Mobility, ROM Treatment/Plan Treatment Plan: Continue Plan of Care Treatment Plan: Bed Mobility, Concurrent Therapy, Education, Functional Activity Molly, Functional Strength, Group Therapy, Gait, Safety, Therapeutic Exercise, Transfers Treatment Duration: Mar 09, 2021 Frequency: At least 5 of 7 days/Wk (IRF) Estimated Hrs Per Day: 1.5 hours per day Patient and/or Family Agrees t: Yes Safety Risks/Education Patient Education: Gait Training, Transfer Techniques, Correct Positioning, Safety Issues Teaching Recipient: Patient Teaching Methods: Demonstration, Discussion Response to Teaching: Reinforcement Needed Time/GCodes Time In: 1330 Time Out: 1400 Total Billed Treatment Time: 30 Total Billed Treatment 1 visit EX 15' FA 15' CHRISTIE HERRERA PT Feb 15, 2021 14:04
[2021-02-15 20:00] VITALS: BP 106/53
[2021-02-15] MEDS: polyethylene glycoL POWDER 17 GM (MIRALAX) PACK PO SCH (21:07)
[2021-02-15] MEDS: oxyCODONE/APAP 5/325MG (PERCOCET 5) TABLET PO PRN (21:51)
[2021-02-16] MEDS: RT-ALBUTEROL/IPRATROPIUM 3 ML (DUONEB) VIAL INH SCH ×2 (06:27→18:44)
[2021-02-16 07:15] VITALS: BP 118/56
[2021-02-16] MEDS: IRON SUCROSE 200 MG/10 ML (VENOFER) VIAL IV SCH (09:52)
[2021-02-16] MEDS: guaiFENesin (MUCINEX) 600 MG TAB PO SCH ×2 (09:53→20:42)
[2021-02-16] MEDS: DOCUSATE SODIUM 100 MG (COLACE) CAP PO SCH ×2 (09:53→20:42)
[2021-02-16] MEDS: PANTOPRAZOLE 40 MG (PROTONIX) TAB PO SCH (09:53)
[2021-02-16] MEDS: APIXABAN 5 MG (ELIQUIS) TABLET PO SCH ×2 (09:53→20:42)
[2021-02-16] MEDS: SENNA W/DOCUSATE (SENOKOT S) TABLET PO SCH ×2 (09:53→20:42)
[2021-02-16] MEDS: AMIODARONE 200 MG (CORDARONE) TAB PO SCH ×2 (09:53→20:42)
--- NOTE | 2021-02-16 09:53 | Physical Therapy Daily Note ---
PT Daily Note-Current Subjective States that he was really sore after yesterday's treatment. Transfers SCALE: Activities may be completed with or without assistive devices. 9-Jjadlrudhp-gnjgnuw completes the activity by him/herself with no assistance from a helper. 5-Set-up or Clean-up Assistance-helper sets up or cleans up; patient completes activity. [place] assists only prior to or following the activity. 4-Supervision or Touching Assistance-helper provides verbal cues and/or touching/steadying and/or contact guard assistance as patient completes activity. Assistance may be provided throughout the activity or intermittently. 3-Partial/Moderate Assistance-helper does LESS THAN HALF the effort. [place] lifts, holds or supports trunk or limbs, but provides less than half the effort. 2-Substantial/Maximal Assistance-helper does MORE THAN HALF the effort. [place] lifts or holds trunk or limbs and provides more than half the effort. 3-Ulqdqjiex-uwlvuj does ALL the effort. Patient does none of the effort to complete the activity. Or, the assistance of 2 or more helpers is required for the patient to complete the activity. If activity was not attempted, code reason: 7-Patient Refused. 9-Not Applicable-not attempted and the patient did not perform the activity before the current illness, exacerbation or injury. 10-Not Attempted due to Environmental Limitations-(lack of equipment, weather restraints, etc.). 88-Not Attempted due to Medical Conditions or Safety Concerns. Sit to Stand (QC): 5 Weight Bearing Right Lower Extremity: Right Full Weight Bearing Left Lower Extremity: Left Touch Toe Bearing Gait Training Distance: 100' x 2 Gait Persons Needed: 1 Gait Assistive Device: FWW Exercises NuStep Minutes: 20 NuStep Workload: 4 Assessment Current Status: Excellent Progress Patient did well with treatment today. PT Chcf Goals Chcf Goals PT Experimental Box Tester Goals Time Frame: Mar 09, 2021 Roll Left & Right (QC): 5 Sit to Lying (QC): 5 Lying-Sitting on Side/Bed(QC): 5 Sit to Stand (QC): 5 Chair/Ymz-gi-Cmots Xfer(QC): 5 Toilet Transfer (QC): 5 Car Transfer (QC): 5 Does the Patient Walk: Yes Walk 10 feet (QC): 5 Walk 50ft with 2 Turns (QC): 5 Walk 150 ft (QC): 5 Walking 10ft on Uneven Surface: 5 1 Step (curb) (QC): 5 4 Steps (QC): 5 12 Steps (QC): 88 Picking up an Object (QC): 5 Wheel 50 feet with 2 turns (QC: 9 Type: N/A Wheel 150 feet: 9 Type: N/A PT Plan Treatment/Plan Treatment Plan: Continue Plan of Care Treatment Plan: Bed Mobility, Concurrent Therapy, Education, Functional Activity Molly, Functional Strength, Group Therapy, Gait, Safety, Therapeutic Exercise, Transfers Treatment Duration: Mar 09, 2021 Frequency: At least 5 of 7 days/Wk (IRF) Estimated Hrs Per Day: 1.5 hours per day Patient and/or Family Agrees t: Yes Time/GCodes Time In: 0900 Time Out: 09 Total Billed Treatment Time: 45 Total Billed Treatment 1, GT x 15, EX x 30' BRANNON VU PT Feb 16, 2021 09:53
[2021-02-16] MEDS: meTOprolol TARTRATE 25 MG (LOPRESSOR) TABLET PO SCH ×2 (09:54→20:42)
--- NOTE | 2021-02-16 12:21 | PM&R Progress Note ---
Subjective HPI/CC On Admission Date Seen by Provider: Feb 16, 2021 Time Seen by Provider: 12:00 Subjective/Events-last exam 02/16/2021: Patient feeling pretty good trying to get used to having a heart problem IV iron infusion tolerated Pain is well controlled 02/15/21: Patient stable Hip pain increased today Pain meds given No issues 02/14/2021: Bowels are moving good IV iron infusion maintained Feels stronger No AF with RVR noted 02/13/2021: Pt doing pretty well Pain is managed with Oxycodone IV iron infusions maintained Normal sinus rhythm on telemetry so with DC telemetry 02/12/2021: Pt doing pretty well Had a bowel movement today Hemoglobin 9.0 IV iron will be restarted Creatinine at 1.41, will monitor that closely A fib is well controlled Review of Systems Musculoskeletal: leg pain Objective Exam Vital Signs Vital Signs Date Time Temp Pulse Resp B/P (MAP) Pulse Ox O2 Delivery O2 Flow Rate FiO2 02/16/21 19:43 36.4 61 16 97/52 (67) 95 02/16/21 18:45 Room Air 02/14/21 14:41 21 Capillary Refill : General Appearance: No Apparent Distress, WD/WN, Chronically ill HEENT: PERRL/EOMI, Normal ENT Inspection, Pharynx Normal Neck: Full Range of Motion, Normal Inspection, Non Tender, Supple, Carotid Bruit Respiratory: Chest Non Tender, Lungs Clear, Normal Breath Sounds, No Accessory Muscle Use, No Respiratory Distress Cardiovascular: Regular Rate, Rhythm, No Edema, No Gallop, No JVD, No Murmur, Normal Peripheral Pulses Gastrointestinal: Normal Bowel Sounds, No Organomegaly, No Pulsatile Mass, Non Tender, Soft Back: Normal Inspection, No CVA Tenderness, No Vertebral Tenderness Extremity: Normal Capillary Refill, Normal Inspection, Normal Range of Motion, Non Tender, No Calf Tenderness, No Pedal Edema Neurologic/Psychiatric: Alert, Oriented x3, No Motor/Sensory Deficits, plumbing inspector II- XII Norm as Tested, Abnormal Gait, Depressed Affect, Motor Weakness (Left leg) Skin: Normal Color, Warm/Dry Lymphatic: No Adenopathy Results/Procedures Lab Patient resulted labs reviewed. [facility]IM Transfers Therapy Code Descriptions/Definitions Functional [place] Measure: 0=Not Assessed/NA 4=Minimal Assistance 1=Total Assistance 5=Supervision or Setup 2=Maximal Assistance 6=Modified [place] 3=Moderate Assistance 7=Complete IndependenceSCALE: Activities may be completed with or without assistive devices. 2-Uchvndeyje-wqlmisi completes the activity by him/herself with no assistance from a helper. 5-Set-up or Clean-up Assistance-helper sets up or cleans up; patient completes activity. [place] assists only prior to or following the activity. 4-Supervision or Touching Assistance-helper provides verbal cues and/or touching/steadying and/or contact guard assistance as patient completes activity. Assistance may be provided throughout the activity or intermittently. 3-Partial/Moderate Assistance-helper does LESS THAN HALF the effort. [place] lifts, holds or supports trunk or limbs, but provides less than half the effort. 2-Substantial/Maximal Assistance-helper does MORE THAN HALF the effort. [place] lifts or holds trunk or limbs and provides more than half the effort. 8-Beazkdubu-wjzxwf does ALL the effort. Patient does none of the effort to complete the activity. Or, the assistance of 2 or more helpers is required for the patient to complete the activity. If activity was not attempted, code reason: 7-Patient Refused. 9-Not Applicable-not attempted and the patient did not perform the activity before the current illness, exacerbation or injury. 10-Not Attempted due to Environmental Limitations-(lack of equipment, weather restraints, etc.). 88-Not Attempted due to Medical Conditions or Safety Concerns. Roll Left to Right (QC): 6 Sit to Lying (QC): 3 Sit to Stand (QC): 5 Chair/Glb-kt-Fxazl Xfer(QC): 4 Car Transfer (QC): 4 Gait Training Does the Patient Walk?: Yes Distance: 100' x 2 Walk 10 feet (QC): 4 Walk 50 ft with 2 Turns(QC): 4 Walk 150 ft (QC): 4 (SBA) Walking 10ft/uneven surface-QC: 3 Gait Persons Needed: 1 Gait Assistive Device: FWW Wheelchair Training Does the Pt Use a Wheelchair?: Yes Distance: 10' Wheel 50 ft with 2 turns (QC): 88 Wheel 150 ft (QC): 88 Type of Wheelchair: Manual Stair Training #of Steps: 1 1 Step (curb) (QC): 3 4 Steps (QC): 88 12 Steps (QC): 88 Balance Picking up an Object (QC): 4 (in seated position) ADL-Treatment Eating (QC): 6 Oral Hygiene (QC): 4 (SBA at sink) Bathing Location: L Arm, R Arm, L Upper Leg, R Upper Leg, L Lower Leg (including foot), R Lower Leg (including foot), Chest, Abdomen, Buttocks, Perineal Area Shower/Bathe Self (QC): 4 (SBA shower transfer. Mod I while seated on sc (use of LHS) and SBA in stance for bottom care.) Upper Body Dressing (QC): 5 (s/u) Lower Body Dressing (QC): 4 (SBA and cues for L before R, cues for placement) On/Off Footwear (QC): 3 (LOREN hose donned TD. Min A after sock aide donning for adjusting over heel. Educated on heel slides to adjust sock on floor.) Toileting Hygiene (QC): 6 Toilet Transfer (QC): 4 Assessment/Plan Assessment and Plan Assess & Plan/Chief Complaint Assessment: Severe debility due to left hip fracture Atrial fibrillation with rapid ventricular response requiring transfer to the ICU 02/06/21 and discharged from inpatient rehab since less than 3 days of admission Displaced and comminuted intertrochanteric fracture of the left femur status post uncomplicated repair 02/01/21 status post repair by Dr. BERNAL New onset episode of atrial fibrillation with rapid ventricular rate requiring ICU admission 02/04/21 and Cardizem drip Postop anemia from acute blood loss requiring 4 units of blood in total Severe postop constipation now resolved Plan: Inpatient rehab protocol Pain control Monitor hemoglobin Monitor atrial fibrillation Appreciate cardiology consultation 02/12/2021: Monitor atrial fibrillation with telemetry Supportive care PT and OT per protocol Pain control 02/13/2021: Pain control Rehab protocol Fall risk 02/14/2021: Pain control IV iron infusions Monitor A. fib 02/15/21: Pain meds effective Monitor for AF 02/16/2021: Pain control Monitor closely IV iron infusions (1) Intertrochanteric fracture of left femur Status: Acute (2) Atrial fibrillation with RVR Status: Acute (3) MERVIN (acute kidney injury) Status: Acute (4) Postoperative anemia Status: Acute APRYL KAMINSKI DO Feb 16, 2021 12:21
--- NOTE | 2021-02-16 13:32 | Cardiology Progress Note ---
Subjective Date Seen by Provider: Feb 16, 2021 Time Seen by Provider: 13:31 Subjective/Events-last exam Patient was seen at bedside, sitting comfortably, no new complaint. Receiving physical therapy and reporting improvement Review of Systems General: No Chills, No Night Sweats, No Fatigue, No Malaise, No Appetite, No Other HEENT: No Head Aches, No Visual Changes, No Eye Pain, No Ear Pain, No Dysphasia, No Sinus Congestion, No Post Nasal Drip, No Sore Throat, No Other Pulmonary: No Dyspnea, No Cough, No Pleuritic Chest Pain, No Other Cardiovascular: No: Chest Pain, Palpitations, Orthopnea, Paroxysmal Noc. Dyspnea, Edema, Lt Headedness, Other Objective-Cardiology Exam Last Set of Vital Signs Vital Signs 02/14/21 02/16/21 02/16/21 14:41 07:15 09:00 Temp 36.6 Pulse 63 Resp 20 B/P (MAP) 118/56 (76) Pulse Ox 93 O2 Delivery Room Air FiO2 21 General: Alert, Oriented X3, Cooperative HEENT: Atraumatic, PERRLA Neck: Supple, No JVD, No Thyromegaly Lungs: Clear to Auscultation, Normal Air Movement Heart: Regular Rate, Normal S1, Normal S2, No Murmurs Abdomen: Normal Bowel Sounds, Soft, No Tenderness, No Hepatosplenomegaly, No Masses Extremities: No Clubbing, No Cyanosis, No Edema, Normal Pulses, No Tenderness/Swelling Skin: No Rashes, No Breakdown, No Significant Lesion Neuro: Normal Gait, Normal Speech Psych/Mental Status: Mental Status NL, Mood NL A/P-Cardiology Admission Diagnosis PAF Anemia L hip fx Renal insufficiency Assessment/Plan Paroxysmal atrial fibrillation, maintained on Amiodarone 400 BID, Eliqius 5mg BID, Lopressor 12.5 BID. Continue to monitor. [id number] score of 2, yearly risk of stroke without oral anticoagulation is 2.2%. Maintained on Eliquis Anemia, continue to monitor H/H, stool for OB +, management per medical services. Left hip fracture, underwent surgical repair with Dr. Morrison on February 01, 2021, receiving physical therapy Renal insufficiency, monitor renal function. JENNIFER RIVER MD Feb 16, 2021 1:32 pm
[2021-02-16] MEDS: HYDROcodone/APAP 5 MG/325 MG (LORTAB) TAB PO PRN (14:38)
[2021-02-16 19:43] VITALS: BP 97/52
[2021-02-16] MEDS: polyethylene glycoL POWDER 17 GM (MIRALAX) PACK PO SCH (20:43)
[2021-02-17] MEDS: HYDROcodone/APAP 5 MG/325 MG (LORTAB) TAB PO PRN ×3 (00:07→20:52)
[2021-02-17] MEDS: RT-ALBUTEROL/IPRATROPIUM 3 ML (DUONEB) VIAL INH SCH ×2 (06:39→21:47)
--- NOTE | 2021-02-17 07:00 | PM&R Progress Note ---
Subjective HPI/CC On Admission Date Seen by Provider: Feb 17, 2021 Time Seen by Provider: 11:45 Subjective/Events-last exam 02/17/2021: Patient not having to get up a day Pain is an issue Seems to be very tired today Has worked very hard this week Dr. Roque will check labs in the morning 02/16/2021: Patient feeling pretty good trying to get used to having a heart problem IV iron infusion tolerated Pain is well controlled 02/15/21: Patient stable Hip pain increased today Pain meds given No issues 02/14/2021: Bowels are moving good IV iron infusion maintained Feels stronger No AF with RVR noted 02/13/2021: Pt doing pretty well Pain is managed with Oxycodone IV iron infusions maintained Normal sinus rhythm on telemetry so with DC telemetry 02/12/2021: Pt doing pretty well Had a bowel movement today Hemoglobin 9.0 IV iron will be restarted Creatinine at 1.41, will monitor that closely A fib is well controlled Review of Systems General: Fatigue Musculoskeletal: leg pain Objective Exam Vital Signs Vital Signs Date Time Temp Pulse Resp B/P (MAP) Pulse Ox O2 Delivery O2 Flow Rate FiO2 02/17/21 09:00 Room Air 02/17/21 07:04 36.4 70 18 134/60 (84) 93 02/14/21 14:41 21 Capillary Refill : General Appearance: No Apparent Distress, WD/WN, Chronically ill HEENT: PERRL/EOMI, Normal ENT Inspection, Pharynx Normal Neck: Full Range of Motion, Normal Inspection, Non Tender, Supple, Carotid Bruit Respiratory: Chest Non Tender, Lungs Clear, Normal Breath Sounds, No Accessory Muscle Use, No Respiratory Distress Cardiovascular: Regular Rate, Rhythm, No Edema, No Gallop, No JVD, No Murmur, Normal Peripheral Pulses Gastrointestinal: Normal Bowel Sounds, No Organomegaly, No Pulsatile Mass, Non Tender, Soft Back: Normal Inspection, No CVA Tenderness, No Vertebral Tenderness Extremity: Normal Capillary Refill, Normal Inspection, Normal Range of Motion, Non Tender, No Calf Tenderness, No Pedal Edema Neurologic/Psychiatric: Alert, Oriented x3, No Motor/Sensory Deficits, 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 FIM Transfers Therapy Code Descriptions/Definitions Functional [place] Measure: 0=Not Assessed/NA 4=Minimal Assistance 1=Total Assistance 5=Supervision or Setup 2=Maximal Assistance 6=Modified [place] 3=Moderate Assistance 7=Complete IndependenceSCALE: Activities may be completed with or without assistive devices. 0-Zcspteszga-kafdhyb completes the activity by him/herself with no assistance from a helper. 5-Set-up or Clean-up Assistance-helper sets up or cleans up; patient completes activity. [place] assists only prior to or following the activity. 4-Supervision or Touching Assistance-helper provides verbal cues and/or touching/steadying and/or contact guard assistance as patient completes activity. Assistance may be provided throughout the activity or intermittently. 3-Partial/Moderate Assistance-helper does LESS THAN HALF the effort. [place] lifts, holds or supports trunk or limbs, but provides less than half the effort. 2-Substantial/Maximal Assistance-helper does MORE THAN HALF the effort. [place] lifts or holds trunk or limbs and provides more than half the effort. 3-Nojmdbyui-gpsptb does ALL the effort. Patient does none of the effort to complete the activity. Or, the assistance of 2 or more helpers is required for the patient to complete the activity. If activity was not attempted, code reason: 7-Patient Refused. 9-Not Applicable-not attempted and the patient did not perform the activity before the current illness, exacerbation or injury. 10-Not Attempted due to Environmental Limitations-(lack of equipment, weather restraints, etc.). 88-Not Attempted due to Medical Conditions or Safety Concerns. Roll Left to Right (QC): 6 Sit to Lying (QC): 3 Sit to Stand (QC): 5 Chair/Koq-kc-Dezjm Xfer(QC): 4 Car Transfer (QC): 4 Gait Training Does the Patient Walk?: Yes Distance: 100' x 2 Walk 10 feet (QC): 4 Walk 50 ft with 2 Turns(QC): 4 Walk 150 ft (QC): 4 (SBA) Walking 10ft/uneven surface-QC: 3 Gait Persons Needed: 1 Gait Assistive Device: FWW Wheelchair Training Does the Pt Use a Wheelchair?: Yes Distance: 10' Wheel 50 ft with 2 turns (QC): 88 Wheel 150 ft (QC): 88 Type of Wheelchair: Manual Stair Training #of Steps: 1 1 Step (curb) (QC): 3 4 Steps (QC): 88 12 Steps (QC): 88 Balance Picking up an Object (QC): 4 (in seated position) ADL-Treatment Eating (QC): 6 Oral Hygiene (QC): 4 (SBA at sink) Bathing Location: L Arm, R Arm, L Upper Leg, R Upper Leg, L Lower Leg (including foot), R Lower Leg (including foot), Chest, Abdomen, Buttocks, Perineal Area Shower/Bathe Self (QC): 4 (SBA shower transfer. Mod I while seated on sc (use of LHS) and SBA in stance for bottom care.) Upper Body Dressing (QC): 5 (s/u) Lower Body Dressing (QC): 4 (SBA and cues for L before R, cues for placement) On/Off Footwear (QC): 3 (LOREN hose donned TD. Min A after sock aide donning for adjusting over heel. Educated on heel slides to adjust sock on floor.) Toileting Hygiene (QC): 6 Toilet Transfer (QC): 4 Assessment/Plan Assessment and Plan Assess & Plan/Chief Complaint Assessment: Severe debility due to left hip fracture Atrial fibrillation with rapid ventricular response requiring transfer to the ICU 02/06/21 and discharged from inpatient rehab since less than 3 days of admission Displaced and comminuted intertrochanteric fracture of the left femur status post uncomplicated repair 02/01/21 status post repair by Dr. BERNAL New onset episode of atrial fibrillation with rapid ventricular rate requiring ICU admission 02/04/21 and Cardizem drip Postop anemia from acute blood loss requiring 4 units of blood in total Severe postop constipation now resolved Plan: Inpatient rehab protocol Pain control Monitor hemoglobin Monitor atrial fibrillation Appreciate cardiology consultation 02/12/2021: Monitor atrial fibrillation with telemetry Supportive care PT and OT per protocol Pain control 02/13/2021: Pain control Rehab protocol Fall risk 02/14/2021: Pain control IV iron infusions Monitor A. fib 02/15/21: Pain meds effective Monitor for AF 02/16/2021: Pain control Monitor closely IV iron infusions 02/17/2021: Maintain IV iron Monitor closely Fall risk Pain control (1) Intertrochanteric fracture of left femur Status: Acute (2) Atrial fibrillation with RVR Status: Acute (3) MERVIN (acute kidney injury) Status: Acute (4) Postoperative anemia Status: Acute APRYL KAMINSKI DO Feb 17, 2021 07:00
[2021-02-17 07:04] VITALS: BP 134/60
[2021-02-17] MEDS: PANTOPRAZOLE 40 MG (PROTONIX) TAB PO SCH (08:24)
[2021-02-17] MEDS: guaiFENesin (MUCINEX) 600 MG TAB PO SCH ×2 (08:24→20:54)
[2021-02-17] MEDS: meTOprolol TARTRATE 25 MG (LOPRESSOR) TABLET PO SCH ×2 (08:24→20:52)
[2021-02-17] MEDS: APIXABAN 5 MG (ELIQUIS) TABLET PO SCH ×2 (08:24→20:52)
[2021-02-17] MEDS: DOCUSATE SODIUM 100 MG (COLACE) CAP PO SCH ×2 (08:25→20:51)
[2021-02-17] MEDS: AMIODARONE 200 MG (CORDARONE) TAB PO SCH ×2 (08:25→20:52)
[2021-02-17] MEDS: SENNA W/DOCUSATE (SENOKOT S) TABLET PO SCH ×2 (08:25→20:51)
--- NOTE | 2021-02-17 10:54 | Cardiology Progress Note ---
Subjective Date Seen by Provider: Feb 17, 2021 Time Seen by Provider: 10:54 Subjective/Events-last exam Patient was seen at bedside, sitting comfortably, no new complaint. Review of Systems General: No Chills, No Night Sweats, No Fatigue, No Malaise, No Appetite, No Other HEENT: No Head Aches, No Visual Changes, No Eye Pain, No Ear Pain, No Dysphasia, No Sinus Congestion, No Post Nasal Drip, No Sore Throat, No Other Pulmonary: No Dyspnea, No Cough, No Pleuritic Chest Pain, No Other Cardiovascular: No: Chest Pain, Palpitations, Orthopnea, Paroxysmal Noc. Dyspnea, Edema, Lt Headedness, Other Objective-Cardiology Exam Last Set of Vital Signs Vital Signs 02/14/21 02/17/21 02/17/21 14:41 07:04 09:00 Temp 36.4 Pulse 70 Resp 18 B/P (MAP) 134/60 (84) Pulse Ox 93 O2 Delivery Room Air FiO2 21 General: Alert, Oriented X3, Cooperative HEENT: Atraumatic, PERRLA Neck: Supple, No JVD, No Thyromegaly Lungs: Clear to Auscultation, Normal Air Movement Heart: Regular Rate, Normal S1, Normal S2, No Murmurs Abdomen: Normal Bowel Sounds, Soft, No Tenderness, No Hepatosplenomegaly, No Masses Extremities: No Clubbing, No Cyanosis, No Edema, Normal Pulses, No Tenderness/Swelling Skin: No Rashes, No Breakdown, No Significant Lesion Neuro: Normal Gait, Normal Speech Psych/Mental Status: Mental Status NL, Mood NL A/P-Cardiology Admission Diagnosis PAF Anemia L hip fx Renal insufficiency Assessment/Plan Paroxysmal atrial fibrillation, maintained on Amiodarone 400 BID, Eliqius 5mg BID, Lopressor 12.5 BID. Continue to monitor. [id number] score of 2, yearly risk of stroke without oral anticoagulation is 2.2%. Maintained on Eliquis Anemia, continue to monitor H/H, stool for OB +, management per medical services. I will evaluate CBC and CMP in a.m. Left hip fracture, underwent surgical repair with Dr. Morrison on February 01, 2021, receiving physical therapy Renal insufficiency, monitor renal function. JENNIFER RIVER MD Feb 17, 2021 10:54 am
[2021-02-17 20:00] VITALS: BP 115/54
[2021-02-17] MEDS: polyethylene glycoL POWDER 17 GM (MIRALAX) PACK PO SCH (21:12)
[2021-02-18 06:07] LABS: HEMATOCRIT 31 % (40-54); HEMOGLOBIN 9.5 g/dL (13.3-17.7); MEAN CORPUSCULAR HEMOGLOBIN 32 pg (25-34); MEAN CORPUSCULAR HGB CONC 31 g/dL (32-36); MEAN CORPUSCULAR VOLUME 103 fL (80-99); MEAN PLATELET VOLUME 9.6 fL (9.0-12.2); PLATELET COUNT 384 10^3/uL (130-400)
[2021-02-18] MEDS: RT-ALBUTEROL/IPRATROPIUM 3 ML (DUONEB) VIAL INH SCH ×3 (06:17→18:17)
[2021-02-18 06:20] LABS: ALBUMIN 3.5 GM/DL (3.2-4.5)
[2021-02-18 06:21] LABS: POTASSIUM 4.5 MMOL/L (3.6-5.0)
[2021-02-18 06:22] LABS: CALCIUM 8.6 MG/DL (8.5-10.1)
[2021-02-18 06:23] LABS: TOTAL PROTEIN 6.2 GM/DL (6.4-8.2)
[2021-02-18 06:25] LABS: BILIRUBIN,TOTAL 1.3 MG/DL (0.1-1.0)
[2021-02-18 06:27] LABS: CREATININE SERUM 1.73 MG/DL (0.60-1.30)
[2021-02-18 07:33] VITALS: BP 121/57
[2021-02-18] MEDS: SENNA W/DOCUSATE (SENOKOT S) TABLET PO SCH ×2 (07:57→20:20)
[2021-02-18] MEDS: PANTOPRAZOLE 40 MG (PROTONIX) TAB PO SCH (07:57)
[2021-02-18] MEDS: IRON SUCROSE 200 MG/10 ML (VENOFER) VIAL IV SCH (07:57)
[2021-02-18] MEDS: APIXABAN 5 MG (ELIQUIS) TABLET PO SCH ×2 (07:57→20:17)
[2021-02-18] MEDS: guaiFENesin (MUCINEX) 600 MG TAB PO SCH ×2 (07:57→20:17)
[2021-02-18] MEDS: meTOprolol TARTRATE 25 MG (LOPRESSOR) TABLET PO SCH ×2 (07:57→20:17)
[2021-02-18] MEDS: DOCUSATE SODIUM 100 MG (COLACE) CAP PO SCH ×2 (07:58→20:20)
[2021-02-18] MEDS: AMIODARONE 200 MG (CORDARONE) TAB PO SCH ×2 (07:58→20:17)
--- NOTE | 2021-02-18 08:44 | Occupational Ther Daily Note ---
OT Current Status-Daily Note Subjective Pt alert, upright in recliner. Pt expresses min pain in L hip, denies showering. Pt agrees to changing clothes and fx activity. Mental Status/Objective Patient Orientation: Person, Place, Situation, Normal For Age ADL-Treatment Therapy Code Descriptions/Definitions Functional [place] Measure: 0=Not Assessed/NA 4=Minimal Assistance 1=Total Assistance 5=Supervision or Setup 2=Maximal Assistance 6=Modified [place] 3=Moderate Assistance 7=Complete IndependenceSCALE: Activities may be completed with or without assistive devices. 2-Fhtrdgrtbv-tqtxriz completes the activity by him/herself with no assistance from a helper. 5-Set-up or Clean-up Assistance-helper sets up or cleans up; patient completes activity. [place] assists only prior to or following the activity. 4-Supervision or Touching Assistance-helper provides verbal cues and/or touching/steadying and/or contact guard assistance as patient completes activ ity. Assistance may be provided throughout the activity or intermittently. 3-Partial/Moderate Assistance-helper does LESS THAN HALF the effort. [place] lifts, holds or supports trunk or limbs, but provides less than half the effort. 2-Substantial/Maximal Assistance-helper does MORE THAN HALF the effort. [place] lifts or holds trunk or limbs and provides more than half the effort. 9-Cdlgouscz-kkwxrg does ALL the effort. Patient does none of the effort to complete the activity. Or, the assistance of 2 or more helpers is required for the patient to complete the activity. If activity was not attempted, code reason: 7-Patient Refused. 9-Not Applicable-not attempted and the patient did not perform the activity before the current illness, exacerbation or injury. 10-Not Attempted due to Environmental Limitations-(lack of equipment, weather restraints, etc.). 88-Not Attempted due to Medical Conditions or Safety Concerns. Eating (QC): 6 Oral Hygiene (QC): 4 (SBA in stance at sink.) Shower/Bathe Self (QC): 7 Upper Body Dressing (QC): 6 (IND) Lower Body Dressing (QC): 5 (s/u, use of strategic account director.) On/Off Footwear: 5 (sock aide given to pt. Pt completes with sock aide/ s/u) Toileting Hygiene (QC): 4 (SUP) Toilet Transfer (QC): 4 (SBA-CGA) Other Treatment Pt sit to stands with SBA, ambulation with SBA-CGA intermittently. Pt completes toileting and dressing on toilet with good abilities. Pt returns to chair for medication management. To address kitchen mobility and safety, pt reaches in upper/ lower cabinets with increased time, min cues for safety, and good ability. Able to reach in high/ low and in appliances. Pt requires RB post task. Recovery, then ambulates to gym, completing 10 min mod resistance arm bike without rest break. Pt then completes UE strengthening tasks. Pt and OT discuss home environment, expresses higher toilet but no gbs, OT educated on non slip mat in shower, placement of 2-3 gbs in shower, placement of strategic account director near stool and in family room for easy access or velcro to walker. Returns to room with increased time, SBA, sits in chair with all needs met,call light in reach. Education OT Patient Education: Correct positioning, Energy conservation, Exercise program, Home exercise program, Modified ADL techniques, Progress toward Goal/Update tx plan, Purpose of tx/functional activities, Reviewed precautions, Safety issues, Transfer techniques, Use of adapted equipment Teaching Recipient: Patient Teaching Methods: Demonstration, Discussion Response to Teaching: Verbalize Understanding, Return Demonstration OT Short Term Goals Short Term Goals Time Frame: Feb 18, 2021 Eatin Oral hygiene: 5 Toileting hygiene: 4 Shower/bathe self: 3 Upper body dressin Lower body dressin Putting on/taking off footwear: 4 OT [facility] Goals Lockstitch Front Edge Tape Sewer Goals Time Frame: Feb 25, 2021 Eating (QC): 6 Oral Hygiene (QC): 6 Toileting Hygiene (QC): 6 Shower/Bathe Self (QC): 4 Upper Body Dressing (QC): 5 Lower Body Dressing (QC): 4 On/Off Footwear (QC): 6 Additional Goals: 1-Demonstrate ADL Tasks, 2-Verbalize Understanding, 3- ImproveStrength/Molly 1=Demonstrate adherence to instructed precautions during ADL tasks. 2=Patient will verbalize/demonstrate understanding of assistive devices/modifications for ADL. 3=Patient will improve strength/tolerance for activity to enable patient to perform ADL's. OT Education/Plan Problem List/Assessment Assessment: Decreased Activ Tolerance, Decreased UE Strength, Dependent T ransfers, Edema, Impaired Funct Balance, Impaired I ADL's, Impaired Self-Care Skills Discharge Recommendations Plan/Recommendations: Continue POC Therapy Discharge Recommendati: Home & Family, Post Acute OT Equpiment Recommendations-D/C: Rails on Tub/Shower (rails near toilet), Hip Kit Treatment Plan/Plan of Care Patient would benefit from OT for education, treatment and training to promote independence in ADL's, mobility, safety and/or upper extremity function for ADL's. Plan of Care: ADL Retraining, Functional Mobility, UE Funct Exercise/Act Treatment Duration: Feb 25, 2021 Frequency: At least 5 of 7 days/Wk (IRF) Estimated Hrs Per Day: 1.5 hours per day Agreement: Yes Rehab Potential: Good Time/GCodes Start Time: 07:45 Stop Time: 09:00 Total Time Billed (hr/min): 75 Billed Treatment Time 1, ADL 2, EX 2, FA= 75 MARIE THURSTON OTR Feb 18, 2021 08:44
--- NOTE | 2021-02-18 10:39 | Physical Therapy Daily Note ---
PT Daily Note-Current Subjective Agreeable to PT. Discussed with this PT his entrances and need for possible modifications at the steps. Mental Status Patient Orientation: Person, Place, Time, Situation Transfers SCALE: Activities may be completed with or without assistive devices. 6-Gplvcdgecn-clapvgt completes the activity by him/herself with no assistance from a helper. 5-Set-up or Clean-up Assistance-helper sets up or cleans up; patient completes activity. [place] assists only prior to or following the activity. 4-Supervision or Touching Assistance-helper provides verbal cues and/or touching/steadying and/or contact guard assistance as patient completes activity. Assistance may be provided throughout the activity or intermittently. 3-Partial/Moderate Assistance-helper does LESS THAN HALF the effort. [place] lifts, holds or supports trunk or limbs, but provides less than half the effort. 2-Substantial/Maximal Assistance-helper does MORE THAN HALF the effort. [place] lifts or holds trunk or limbs and provides more than half the effort. 4-Xuxjctnoj-ibeksw does ALL the effort. Patient does none of the effort to complete the activity. Or, the assistance of 2 or more helpers is required for the patient to complete the activity. If activity was not attempted, code reason: 7-Patient Refused. 9-Not Applicable-not attempted and the patient did not perform the activity before the current illness, exacerbation or injury. 10-Not Attempted due to Environmental Limitations-(lack of equipment, weather restraints, etc.). 88-Not Attempted due to Medical Conditions or Safety Concerns. Sit to Stand (QC): 4 Chair/Lfr-vv-Aclei Xfer(QC): 4 SBA with transfers for safety, but does not need any assist; occas tends to sit with decrreased control, educated pt on importance of a controlled descent. Weight Bearing Right Lower Extremity: Right Full Weight Bearing Left Lower Extremity: Left Touch Toe Bearing Gait Training Walk 50 ft with 2 Turns(QC): 4 Walk 150 ft (QC): 4 Gait Assistive Device: FWW Pt ambulated 150 ft x 4 and 50 ft x 2 with FWW with SBA and able to maintain TTWB L LE. Stair Training Stair Training: Handrails/: 2 handrails 4 Steps (QC): 3 (B handrails; TTWB maintained; skilled cues for sequencing and technique. ) Exercises Seated Therapy Exercises: Ankle pumps, Long arc quads Seated Reps: 15 Assessment Current Status: Good Progress Progresssing well. Requires extra time to recover after strenuous event due to hx of COPD. Maintains TTWB well. 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 Goals Skilled Nursing Goals 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 Goals Time Frame: Mar 09, 2021 Roll Left & Right (QC): 5 Sit to Lying (QC): 5 Lying-Sitting on Side/Bed(QC): 5 Sit to Stand (QC): 5 Chair/Lsf-bi-Chbqj Xfer(QC): 5 Toilet Transfer (QC): 5 Car Transfer (QC): 5 Does the Patient Walk: Yes Walk 10 feet (QC): 5 Walk 50ft with 2 Turns (QC): 5 Walk 150 ft (QC): 5 Walking 10ft on Uneven Surface: 5 1 Step (curb) (QC): 5 4 Steps (QC): 5 12 Steps (QC): 88 Picking up an Object (QC): 5 Wheel 50 feet with 2 turns (QC: 9 Type: N/A Wheel 150 feet: 9 Type: N/A PT Plan Problem List Problem List: Activity Tolerance, Functional Strength, Safety, Balance, Gait, Transfer, Bed Mobility Treatment/Plan Treatment Plan: Continue Plan of Care Treatment Plan: Bed Mobility, Concurrent Therapy, Education, Functional Activity Molly, Functional Strength, Group Therapy, Gait, Safety, Therapeutic Exercise, Transfers Treatment Duration: Mar 09, 2021 Frequency: At least 5 of 7 days/Wk (IRF) Estimated Hrs Per Day: 1.5 hours per day Patient and/or Family Agrees t: Yes Safety Risks/Education Patient Education: Transfer Techniques, Steps, Safety Issues Teaching Recipient: Patient Teaching Methods: Demonstration, Discussion Response to Teaching: Reinforcement Needed Discharge Recommendations Therapy Discharge Recommendati: Post Acute PT ([facility]HC PT) Time/GCodes Time In: 900 Time Out: 1000 Total Billed Treatment Time: 60 Total Billed Treatment visit FA 60 LOREN QUIROZ PT Feb 18, 2021 10:39
--- NOTE | 2021-02-18 10:58 | PM&R Progress Note ---
Subjective HPI/CC On Admission Date Seen by Provider: Feb 18, 2021 Time Seen by Provider: 11:00 Subjective/Events-last exam 02/18/2021: Patient doing pretty well Much improved Creatinine 1.73 and when he was admitted it was 1.4 indicating chronic kidney disease Hemoglobin 9.5 02/17/2021: Patient not having a good day Pain is an issue Seems to be very tired today Has worked very hard this week Dr. Roque will check labs in the morning 02/16/2021: Patient feeling pretty good trying to get used to having a heart problem IV iron infusion tolerated Pain is well controlled 02/15/21: Patient stable Hip pain increased today Pain meds given No issues 02/14/2021: Bowels are moving good IV iron infusion maintained Feels stronger No AF with RVR noted 02/13/2021: Pt doing pretty well Pain is managed with Oxycodone IV iron infusions maintained Normal sinus rhythm on telemetry so with DC telemetry 02/12/2021: Pt doing pretty well Had a bowel movement today Hemoglobin 9.0 IV iron will be restarted Creatinine at 1.41, will monitor that closely A fib is well controlled Review of Systems General: Fatigue, Malaise Musculoskeletal: leg pain Objective Exam Vital Signs Vital Signs Date Time Temp Pulse Resp B/P (MAP) Pulse Ox O2 Delivery O2 Flow Rate FiO2 02/18/21 20:26 94 Room Air 02/18/21 19:57 36.6 63 18 100/49 (66) 02/18/21 11:57 21 Capillary Refill : General Appearance: No Apparent Distress, WD/WN, Chronically ill HEENT: PERRL/EOMI, Normal ENT Inspection, Pharynx Normal Neck: Full Range of Motion, Normal Inspection, Non Tender, Supple, Carotid Bruit Respiratory: Chest Non Tender, Lungs Clear, Normal Breath Sounds, No Accessory Muscle Use, No Respiratory Distress Cardiovascular: Regular Rate, Rhythm, No Edema, No Gallop, No JVD, No Murmur, Normal Peripheral Pulses Gastrointestinal: Normal Bowel Sounds, No Organomegaly, No Pulsatile Mass, Non Tender, Soft Back: Normal Inspection, No CVA Tenderness, No Vertebral Tenderness Extremity: Normal Capillary Refill, Normal Inspection, Normal Range of Motion, Non Tender, No Calf Tenderness, No Pedal Edema Neurologic/Psychiatric: Alert, Oriented x3, No Motor/Sensory Deficits, field liability generalist II- XII Norm as Tested, Abnormal Gait, Depressed Affect, Motor Weakness (Left leg) Skin: Normal Color, Warm/Dry Lymphatic: No Adenopathy Results/Procedures Lab Patient resulted labs reviewed. FIM Transfers Therapy Code Descriptions/Definitions Functional [place] Measure: 0=Not Assessed/NA 4=Minimal Assistance 1=Total Assistance 5=Supervision or Setup 2=Maximal Assistance 6=Modified [place] 3=Moderate Assistance 7=Complete IndependenceSCALE: Activities may be completed with or without assistive devices. 0-Tntaxoghex-vfpqrhg completes the activity by him/herself with no assistance from a helper. 5-Set-up or Clean-up Assistance-helper sets up or cleans up; patient completes a ctivity. [place] assists only prior to or following the activity. 4-Supervision or Touching Assistance-helper provides verbal cues and/or touching/steadying and/or contact guard assistance as patient completes activity. Assistance may be provided throughout the activity or intermittently. 3-Partial/Moderate Assistance-helper does LESS THAN HALF the effort. [place] lifts, holds or supports trunk or limbs, but provides less than half the effort. 2-Substantial/Maximal Assistance-helper does MORE THAN HALF the effort. [place] lifts or holds trunk or limbs and provides more than half the effort. 9-Magtzbluv-bfybet does ALL the effort. Patient does none of the effort to complete the activity. Or, the assistance of 2 or more helpers is required for the patient to complete the activity. If activity was not attempted, code reason: 7-Patient Refused. 9-Not Applicable-not attempted and the patient did not perform the activity before the current illness, exacerbation or injury. 10-Not Attempted due to Environmental Limitations-(lack of equipment, weather restraints, etc.). 88-Not Attempted due to Medical Conditions or Safety Concerns. Roll Left to Right (QC): 6 Sit to Lying (QC): 3 Sit to Stand (QC): 4 Chair/Rkd-tt-Nrthg Xfer(QC): 4 Car Transfer (QC): 4 Gait Training Does the Patient Walk?: Yes Distance: 100' x 2 Walk 10 feet (QC): 4 Walk 50 ft with 2 Turns(QC): 4 Walk 150 ft (QC): 4 Walking 10ft/uneven surface-QC: 3 Gait Persons Needed: 1 Gait Assistive Device: FWW Wheelchair Training Does the Pt Use a Wheelchair?: Yes Distance: 10' Wheel 50 ft with 2 turns (QC): 88 Wheel 150 ft (QC): 88 Type of Wheelchair: Manual Stair Training Stair Training: Handrails/: 2 handrails #of Steps: 1 1 Step (curb) (QC): 3 4 Steps (QC): 3 (B handrails; TTWB maintained; skilled cues for sequencing and technique. ) 12 Steps (QC): 88 Balance Picking up an Object (QC): 4 (in seated position) ADL-Treatment Eating (QC): 6 Oral Hygiene (QC): 4 (SBA in stance at sink.) Bathing Location: L Arm, R Arm, L Upper Leg, R Upper Leg, L Lower Leg (including foot), R Lower Leg (including foot), Chest, Abdomen, Buttocks, Perineal Area Shower/Bathe Self (QC): 7 Upper Body Dressing (QC): 6 (IND) Lower Body Dressing (QC): 5 (s/u, use of steelworker.) On/Off Footwear (QC): 5 (sock aide given to pt. Pt completes with sock aide/ s/u) Toileting Hygiene (QC): 4 (SUP) Toilet Transfer (QC): 4 (SBA-CGA) Assessment/Plan Assessment and Plan Assess & Plan/Chief Complaint Assessment: Severe debility due to left hip fracture Atrial fibrillation with rapid ventricular response requiring transfer to the ICU 02/06/21 and discharged from inpatient rehab since less than 3 days of admission Displaced and comminuted intertrochanteric fracture of the left femur status post uncomplicated repair 02/01/21 status post repair by Dr. BERNAL New onset episode of atrial fibrillation with rapid ventricular rate requiring ICU admission 02/04/21 and Cardizem drip Postop anemia from acute blood loss requiring 4 units of blood in total Severe postop constipation now resolved Plan: Inpatient rehab protocol Pain control Monitor hemoglobin Monitor atrial fibrillation Appreciate cardiology consultation 02/12/2021: Monitor atrial fibrillation with telemetry Supportive care PT and OT per protocol Pain control 02/13/2021: Pain control Rehab protocol Fall risk 02/14/2021: Pain control IV iron infusions Monitor A. fib 02/15/21: Pain meds effective Monitor for AF 02/16/2021: Pain control Monitor closely IV iron infusions 02/17/2021: Maintain IV iron Monitor closely Fall risk Pain control 02/18/2021: Complete IV iron infusions Monitor closely (1) Intertrochanteric fracture of left femur Status: Acute (2) Atrial fibrillation with RVR Status: Acute (3) MERVIN (acute kidney injury) Status: Acute (4) Postoperative anemia Status: Acute APRYL KAMINSKI DO Feb 18, 2021 10:58
[2021-02-18] MEDS: HYDROcodone/APAP 5 MG/325 MG (LORTAB) TAB PO PRN ×2 (11:04→20:19)
--- NOTE | 2021-02-18 13:42 | Occupational Ther Daily Note ---
OT Current Status-Daily Note Subjective Pt alert, sitting in recliner. Pt stated that pain has lessened since he had pain pill. Pt agrees to therapy. Mental Status/Objective Patient Orientation: Person, Place, Time, Situation ADL-Treatment Pt requested to use bathroom. Pt transferred to toilet with supervision and completed toileting independent. Therapy Code Descriptions/Definitions Functional [place] Measure: 0=Not Assessed/NA 4=Minimal Assistance 1=Total Assistance 5=Supervision or Setup 2=Maximal Assistance 6=Modified [place] 3=Moderate Assistance 7=Complete IndependenceSCALE: Activities may be completed with or without assistive devices. 7-Qhqlpoqyun-cdngrlm completes the activity by him/herself with no assistance from a helper. 5-Set-up or Clean-up Assistance-helper sets up or cleans up; patient completes activity. [place] assists only prior to or following the activity. 4-Supervision or Touching Assistance-helper provides verbal cues and/or touching/steadying and/or contact guard assistance as patient completes activity. Assistance may be provided throughout the activity or intermittently. 3-Partial/Moderate Assistance-helper does LESS THAN HALF the effort. [place] lift s, holds or supports trunk or limbs, but provides less than half the effort. 2-Substantial/Maximal Assistance-helper does MORE THAN HALF the effort. [place] lifts or holds trunk or limbs and provides more than half the effort. 0-Cdtgxehzo-mzhaur does ALL the effort. Patient does none of the effort to complete the activity. Or, the assistance of 2 or more helpers is required for the patient to complete the activity. If activity was not attempted, code reason: 7-Patient Refused. 9-Not Applicable-not attempted and the patient did not perform the activity before the current illness, exacerbation or injury. 10-Not Attempted due to Environmental Limitations-(lack of equipment, weather restraints, etc.). 88-Not Attempted due to Medical Conditions or Safety Concerns. Toileting Hygiene (QC): 6 Toilet Transfer (QC): 4 Other Treatment Pt ambulated around [facility] to work on functional mobility and dynamic balance for daily functional tasks. After session, pt sitting in recliner with call light/phone in reach. All needs met in room. OT Short Term Goals Short Term Goals Time Frame: Feb 18, 2021 Eatin Oral hygiene: 5 Toileting hygiene: 4 Shower/bathe self: 3 Upper body dressin Lower body dressin Putting on/taking off footwear: 4 OT Fdc Goals Travel Ticketing Reviewer Goals Time Frame: Feb 25, 2021 Eating (QC): 6 Oral Hygiene (QC): 6 Toileting Hygiene (QC): 6 Shower/Bathe Self (QC): 4 Upper Body Dressing (QC): 5 Lower Body Dressing (QC): 4 On/Off Footwear (QC): 6 Additional Goals: 1-Demonstrate ADL Tasks, 2-Verbalize Understanding, 3- ImproveStrength/Molly 1=Demonstrate adherence to instructed precautions during ADL tasks. 2=Patient will verbalize/demonstrate understanding of assistive devices/modifications for ADL. 3=Patient will improve strength/tolerance for activity to enable patient to perform ADL's. OT Education/Plan Problem List/Assessment Assessment: Decreased Activ Tolerance, Impaired Self-Care Skills Discharge Recommendations Plan/Recommendations: Continue POC Treatment Plan/Plan of Care Patient would benefit from OT for education, treatment and training to promote independence in ADL's, mobility, safety and/or upper extremity function for ADL's. Plan of Care: ADL Retraining, Functional Mobility, UE Funct Exercise/Act Treatment Duration: Feb 25, 2021 Frequency: At least 5 of 7 days/Wk (IRF) Estimated Hrs Per Day: 1.5 hours per day Agreement: Yes Rehab Potential: Good Time/GCodes Start Time: 13:00 Stop Time: 13:15 Total Time Billed (hr/min): 15 Billed Treatment Time 1 visit-FA 1 (15 min) LOREN SHANNON Feb 18, 2021 13:42
--- NOTE | 2021-02-18 14:31 | Cardiology Progress Note ---
Subjective Date Seen by Provider: Feb 18, 2021 Time Seen by Provider: 14:30 Subjective/Events-last exam Patient was seen at bedside, laying down comfortably, no new complaint. No chest pain Review of Systems General: No Chills, No Night Sweats, No Fatigue, No Malaise, No Appetite, No Other HEENT: No Head Aches, No Visual Changes, No Eye Pain, No Ear Pain, No Dysphas ia, No Sinus Congestion, No Post Nasal Drip, No Sore Throat, No Other Pulmonary: No Dyspnea, No Cough, No Pleuritic Chest Pain, No Other Cardiovascular: No: Chest Pain, Palpitations, Orthopnea, Paroxysmal Noc. Dyspnea, Edema, Lt Headedness, Other Objective-Cardiology Exam Last Set of Vital Signs Vital Signs 02/18/21 02/18/21 02/18/21 07:33 09:16 11:57 Temp 36.5 Pulse 55 Resp 18 B/P (MAP) 121/57 (78) Pulse Ox 93 O2 Delivery Room Air FiO2 21 General: Alert, Oriented X3, Cooperative HEENT: Atraumatic, PERRLA Neck: Supple, No JVD, No Thyromegaly Lungs: Clear to Auscultation, Normal Air Movement Heart: Regular Rate, Normal S1, Normal S2, No Murmurs Abdomen: Normal Bowel Sounds, Soft, No Tenderness, No Hepatosplenomegaly, No Masses Extremities: No Clubbing, No Cyanosis, No Edema, Normal Pulses, No Ten derness/Swelling Skin: No Rashes, No Breakdown, No Significant Lesion Neuro: Normal Gait, Normal Speech Psych/Mental Status: Mental Status NL, Mood NL Results Lab Laboratory Tests 02/18/21 05:45 A/P-Cardiology Admission Diagnosis PAF Anemia L hip fx Renal insufficiency Assessment/Plan Paroxysmal atrial fibrillation, maintained on Amiodarone 400 BID, Eliqius 5mg BID, Lopressor 12.5 BID. Continue to monitor. [id number] score of 2, yearly risk of stroke without oral anticoagulation is 2.2%. Maintained on Eliquis Anemia, continue to monitor H/H, stool for OB +, management per medical services. Left hip fracture, underwent surgical repair with Dr. Mrorison on February 01, 2021, receiving physical therapy Renal insufficiency, monitor renal function. JENNIFER RIVER MD Feb 18, 2021 2:31 pm
--- NOTE | 2021-02-18 14:33 | Physical Therapy Daily Note ---
PT Daily Note-Current Subjective Agreeable to PT. No complaints. Transfers SCALE: Activities may be completed with or without assistive devices. 2-Ykmrdwjfsg-cotlvoo completes the activity by him/herself with no assistance from a helper. 5-Set-up or Clean-up Assistance-helper sets up or cleans up; patient completes activity. [place] assists only prior to or following the activity. 4-Supervision or Touching Assistance-helper provides verbal cues and/or touching/steadying and/or contact guard assistance as patient completes activity. Assistance may be provided throughout the activity or intermittently. 3-Partial/Moderate Assistance-helper does LESS THAN HALF the effort. [place] lift s, holds or supports trunk or limbs, but provides less than half the effort. 2-Substantial/Maximal Assistance-helper does MORE THAN HALF the effort. [place] lifts or holds trunk or limbs and provides more than half the effort. 8-Cggdqyalb-nqoglo does ALL the effort. Patient does none of the effort to complete the activity. Or, the assistance of 2 or more helpers is required for the patient to complete the activity. If activity was not attempted, code reason: 7-Patient Refused. 9-Not Applicable-not attempted and the patient did not perform the activity before the current illness, exacerbation or injury. 10-Not Attempted due to Environmental Limitations-(lack of equipment, weather restraints, etc.). 88-Not Attempted due to Medical Conditions or Safety Concerns. Sit to Stand (QC): 4 Chair/Rto-mo-[place]mv[place] Xfer(QC): 4 Weight Bearing Right Lower Extremity: Right Full Weight Bearing Left Lower Extremity: Left Touch Toe Bearing Gait Training Walk 150 ft (QC): 4 Gait Assistive Device: FWW Pt ambulated 150 ft x 2 with FWW TTWB left. Exercises NuStep Minutes: 15 (LE strength and increase functional act tolerance; used UE to reduce WB left LE to TTWB status. ) Assessment Current Status: Good Progress Progressing well. PT Corporate Travel Agent Goals Corporate Travel Agent Goals PT Corporate Travel Agent Goals Time Frame: Mar 09, 2021 Roll Left & Right (QC): 5 Sit to Lying (QC): 5 Lying-Sitting on Side/Bed(QC): 5 Sit to Stand (QC): 5 Chair/Cqm-dk-Ngqeo Xfer(QC): 5 Toilet Transfer (QC): 5 Car Transfer (QC): 5 Does the Patient Walk: Yes Walk 10 feet (QC): 5 Walk 50ft with 2 Turns (QC): 5 Walk 150 ft (QC): 5 Walking 10ft on Uneven Surface: 5 1 Step (curb) (QC): 5 4 Steps (QC): 5 12 Steps (QC): 88 Picking up an Object (QC): 5 Wheel 50 feet with 2 turns (QC: 9 Type: N/A Wheel 150 feet: 9 Type: N/A PT Plan Problem List Problem List: Activity Tolerance, Functional Strength, Safety Treatment/Plan Treatment Plan: Continue Plan of Care Treatment Plan: Bed Mobility, Concurrent Therapy, Education, Functional Activity Molly, Functional Strength, Group Therapy, Gait, Safety, Therapeutic Exercise, Transfers Treatment Duration: Mar 09, 2021 Frequency: At least 5 of 7 days/Wk (IRF) Estimated Hrs Per Day: 1.5 hours per day Patient and/or Family Agrees t: Yes Time/GCodes Time In: 1330 Time Out: 1400 Total Billed Treatment Time: 30 Total Billed Treatment visit GT 15 EX 15 LOREN QUIROZ PT Feb 18, 2021 14:33
[2021-02-18 19:57] VITALS: BP 100/49
[2021-02-18] MEDS: polyethylene glycoL POWDER 17 GM (MIRALAX) PACK PO SCH (20:20)
[2021-02-19] MEDS: RT-ALBUTEROL/IPRATROPIUM 3 ML (DUONEB) VIAL INH SCH ×3 (06:32→18:35)
--- NOTE | 2021-02-19 06:33 | PM&R Progress Note ---
Subjective HPI/CC On Admission Date Seen by Provider: Feb 19, 2021 Time Seen by Provider: 09:00 Subjective/Events-last exam 02/19/2021: Patient feels really good Less pain today No A. fib with RVR Bowels are moving well Amiodarone decreased to 200 mg daily from 400 mg twice daily Blood pressure 105/66 02/18/2021: Patient doing pretty well Much improved Creatinine 1.73 and when he was admitted it was 1.4 indicating chronic kidney disease Hemoglobin 9.5 02/17/2021: Patient not having a good day Pain is an issue Seems to be very tired today Has worked very hard this week Dr. Roque will check labs in the morning 02/16/2021: Patient feeling pretty good trying to get used to having a heart problem IV iron infusion tolerated Pain is well controlled 02/15/21: Patient stable Hip pain increased today Pain meds given No issues 02/14/2021: Bowels are moving good IV iron infusion maintained Feels stronger No AF with RVR noted 02/13/2021: Pt doing pretty well Pain is managed with Oxycodone IV iron infusions maintained Normal sinus rhythm on telemetry so with DC telemetry 02/12/2021: Pt doing pretty well Had a bowel movement today Hemoglobin 9.0 IV iron will be restarted Creatinine at 1.41, will monitor that closely A fib is well controlled Review of Systems General: Fatigue, Malaise Pulmonary: Dyspnea Musculoskeletal: leg pain Objective Exam Vital Signs Vital Signs Date Time Temp Pulse Resp B/P (MAP) Pulse Ox O2 Delivery O2 Flow Rate FiO2 02/20/21 07:01 93 Room Air 02/19/21 20:00 36.4 78 16 110/77 (88) 02/18/21 11:57 21 Capillary Refill : General Appearance: No Apparent Distress, WD/WN, Chronically ill HEENT: PERRL/EOMI, Normal ENT Inspection, Pharynx Normal Neck: Full Range of Motion, Normal Inspection, Non Tender, Supple, Carotid Bruit Respiratory: Chest Non Tender, Lungs Clear, Normal Breath Sounds, No Accessory Muscle Use, No Respiratory Distress Cardiovascular: Regular Rate, Rhythm, No Edema, No Gallop, No JVD, No Murmur, Normal Peripheral Pulses Gastrointestinal: Normal Bowel Sounds, No Organomegaly, No Pulsatile Mass, Non Tender, Soft Back: Normal Inspection, No CVA Tenderness, No Vertebral Tenderness Extremity: Normal Capillary Refill, Normal Inspection, Normal Range of Motion, Non Tender, No Calf Tenderness, No Pedal Edema Neurologic/Psychiatric: Alert, Oriented x3, No Motor/Sensory Deficits, gambling floor supervisor II- XII Norm as Tested, Abnormal Gait, Depressed Affect, Motor Weakness (Left leg) Skin: Normal Color, Warm/Dry Lymphatic: No Adenopathy Results/Procedures Lab Patient resulted labs reviewed. FIM Transfers Therapy Code Descriptions/Definitions Functional [place] Measure: 0=Not Assessed/NA 4=Minimal Assistance 1=Total Assistance 5=Supervision or Setup 2=Maximal Assistance 6=Modified [place] 3=Moderate Assistance 7=Complete IndependenceSCALE: Activities may be completed with or without assistive devices. 3-Okyderwlag-adpxgot completes the activity by him/herself with no assistance from a helper. 5-Set-up or Clean-up Assistance-helper sets up or cleans up; patient completes activity. [place] assists only prior to or following the activity. 4-Supervision or Touching Assistance-helper provides verbal cues and/or touching/steadying and/or contact guard assistance as patient completes activity. Assistance may be provided throughout the activity or intermittently. 3-Partial/Moderate Assistance-helper does LESS THAN HALF the effort. [place] lifts, holds or supports trunk or limbs, but provides less than half the effort. 2-Substantial/Maximal Assistance-helper does MORE THAN HALF the effort. [place] lifts or holds trunk or limbs and provides more than half the effort. 3-Bbsujemxv-wnnvfh does ALL the effort. Patient does none of the effort to complete the activity. Or, the assistance of 2 or more helpers is required for the patient to complete the activity. If activity was not attempted, code reason: 7-Patient Refused. 9-Not Applicable-not attempted and the patient did not perform the activity before the current illness, exacerbation or injury. 10-Not Attempted due to Environmental Limitations-(lack of equipment, weather restraints, etc.). 88-Not Attempted due to Medical Conditions or Safety Concerns. Roll Left to Right (QC): 6 Sit to Lying (QC): 3 Sit to Stand (QC): 4 Chair/Xbx-sf-Vdzjm Xfer(QC): 4 Car Transfer (QC): 4 Gait Training Does the Patient Walk?: Yes Distance: 100' x 2 Walk 10 feet (QC): 4 Walk 50 ft with 2 Turns(QC): 4 Walk 150 ft (QC): 4 Walking 10ft/uneven surface-QC: 3 Gait Persons Needed: 1 Gait Assistive Device: FWW Wheelchair Training Does the Pt Use a Wheelchair?: Yes Distance: 10' Wheel 50 ft with 2 turns (QC): 88 Wheel 150 ft (QC): 88 Type of Wheelchair: Manual Stair Training Stair Training: Handrails/: 2 handrails #of Steps: 1 1 Step (curb) (QC): 3 4 Steps (QC): 3 (B handrails; TTWB maintained; skilled cues for sequencing and technique. ) 12 Steps (QC): 88 Balance Picking up an Object (QC): 4 (in seated position) ADL-Treatment Eating (QC): 6 Oral Hygiene (QC): 4 (SBA in stance at sink.) Bathing Location: L Arm, R Arm, L Upper Leg, R Upper Leg, L Lower Leg (including foot), R Lower Leg (including foot), Chest, Abdomen, Buttocks, Perineal Area Shower/Bathe Self (QC): 7 Upper Body Dressing (QC): 6 (IND) Lower Body Dressing (QC): 5 (s/u, use of door framer.) On/Off Footwear (QC): 5 (sock aide given to pt. Pt completes with sock aide/ s/u) Toileting Hygiene (QC): 6 Toilet Transfer (QC): 4 Assessment/Plan Assessment and Plan Assess & Plan/Chief Complaint Assessment: Severe debility due to left hip fracture Atrial fibrillation with rapid ventricular response requiring transfer to the ICU 02/06/21 and discharged from inpatient rehab since less than 3 days of admission Displaced and comminuted intertrochanteric fracture of the left femur status post uncomplicated repair 02/01/21 status post repair by Dr. BERNAL New onset episode of atrial fibrillation with rapid ventricular rate requiring ICU admission 02/04/21 and Cardizem drip Postop anemia from acute blood loss requiring 4 units of blood in total Severe postop constipation now resolved Plan: Inpatient rehab protocol Pain control Monitor hemoglobin Monitor atrial fibrillation Appreciate cardiology consultation 02/12/2021: Monitor atrial fibrillation with telemetry Supportive care PT and OT per protocol Pain control 02/13/2021: Pain control Rehab protocol Fall risk 02/14/2021: Pain control IV iron infusions Monitor A. fib 02/15/21: Pain meds effective Monitor for AF 02/16/2021: Pain control Monitor closely IV iron infusions 02/17/2021: Maintain IV iron Monitor closely Fall risk Pain control 02/18/2021: Complete IV iron infusions Monitor closely 02/19/2021: Decreased amiodarone dosing and frequency Monitor closely (1) Intertrochanteric fracture of left femur Status: Acute (2) Atrial fibrillation with RVR Status: Acute (3) MERVIN (acute kidney injury) Status: Acute (4) Postoperative anemia Status: Acute APRYL KAMINSKI DO Feb 19, 2021 06:33
[2021-02-19 07:23] VITALS: BP 105/56
[2021-02-19] MEDS: PANTOPRAZOLE 40 MG (PROTONIX) TAB PO SCH (08:09)
[2021-02-19] MEDS: meTOprolol TARTRATE 25 MG (LOPRESSOR) TABLET PO SCH ×2 (08:09→20:19)
[2021-02-19] MEDS: APIXABAN 5 MG (ELIQUIS) TABLET PO SCH ×2 (08:09→20:17)
[2021-02-19] MEDS: guaiFENesin (MUCINEX) 600 MG TAB PO SCH ×2 (08:09→20:17)
[2021-02-19] MEDS: HYDROcodone/APAP 5 MG/325 MG (LORTAB) TAB PO PRN ×3 (08:10→20:18)
[2021-02-19] MEDS: AMIODARONE 200 MG (CORDARONE) TAB PO SCH (08:10)
--- NOTE | 2021-02-19 08:18 | Cardiology Progress Note ---
Subjective Date Seen by Provider: Feb 19, 2021 Time Seen by Provider: 08:17 Subjective/Events-last exam Patient is sitting up in chair, denies any chest pain or dyspnea. Review of Systems General: No Chills, No Night Sweats, No Fatigue, No Malaise, No Appetite, No Other HEENT: No Head Aches, No Visual Changes, No Eye Pain, No Ear Pain, No Dysphasia, No Sinus Congestion, No Post Nasal Drip, No Sore Throat, No Other Pulmonary: No Dyspnea, No Cough, No Pleuritic Chest Pain, No Other Cardiovascular: No: Chest Pain, Palpitations, Orthopnea, Paroxysmal Noc. Dyspnea, Edema, Lt Headedness, Other Objective-Cardiology Exam Last Set of Vital Signs Vital Signs 02/18/21 02/19/21 02/19/21 11:57 07:23 09:10 Temp 35.9 Pulse 67 Resp 16 B/P (MAP) 105/56 (72) Pulse Ox 96 O2 Delivery Room Air FiO2 21 General: Alert, Oriented X3, Cooperative HEENT: Atraumatic, PERRLA Neck: Supple, No JVD, No Thyromegaly Lungs: Clear to Auscultation, Normal Air Movement Heart: Regular Rate, Normal S1, Normal S2, No Murmurs Abdomen: Normal Bowel Sounds, Soft, No Tenderness, No Hepatosplenomegaly, No Masses Extremities: No Clubbing, No Cyanosis, No Edema, Normal Pulses, No Tenderness/Swelling Skin: No Rashes, No Breakdown, No Significant Lesion Neuro: Normal Gait, Normal Speech Psych/Mental Status: Mental Status NL, Mood NL A/P-Cardiology Admission Diagnosis PAF Anemia L hip fx Renal insufficiency Assessment/Plan Paroxysmal atrial fibrillation, maintained on Amiodarone 200mg, Eliqius 5mg BID, Lopressor 12.5 BID. Continue to monitor. [id number] score of 2, yearly risk of stroke without oral anticoagulation is 2.2%. Maintained on Eliquis Anemia, continue to monitor H/H, management per medical services. Left hip fracture, underwent surgical repair with Dr. Morrison on February 01, 2021, receiving physical therapy Renal insufficiency, monitor renal function. Patient was seen and evaluated with Keke, sitting in a recliner, his knee pain is slightly better today Heart rate is well controlled Continue to monitor blood pressure and lipids Supervisory-Addendum Brief Supervisory Addendum Participated in pt care: history, MDM, physical Personally performed: exam, history, MDM Care discussed with: KEKE SALGUERO Feb 19, 2021 8:18 am JENNIFER RIVER MD Feb 19, 2021 4:26 pm
[2021-02-19] MEDS: SENNA W/DOCUSATE (SENOKOT S) TABLET PO SCH ×2 (08:57→20:26)
[2021-02-19] MEDS: DOCUSATE SODIUM 100 MG (COLACE) CAP PO SCH ×2 (08:57→20:26)
--- NOTE | 2021-02-19 10:31 | Occupational Ther Daily Note ---
OT Current Status-Daily Note Subjective Pt AxO, states fatigue as had pain and discomfort within the night. Pt agrees to tx, states 2/10 pain in sit and 5-6/10 pain in stance/ activity. Pt seen [id number] (20); Pt expresses 5.5/10 pain, nursing notified for pain med administration. Pt agrees to tx. Mental Status/Objective Patient Orientation: Person, Place, Situation, Normal For Age ADL-Treatment Therapy Code Descriptions/Definitions Functional [place] Measure: 0=Not Assessed/NA 4=Minimal Assistance 1=Total Assistance 5=Supervision or Setup 2=Maximal Assistance 6=Modified [place] 3=Moderate Assistance 7=Complete IndependenceSCALE: Activities may be completed with or without assistive devices. 0-Qrvklhyiar-uahxdqv completes the activity by him/herself with no assistance from a helper. 5-Set-up or Clean-up Assistance-helper sets up or cleans up; patient completes activity. [place] assists only prior to or following the activity. 4-Supervision or Touching Assistance-helper provides verbal cues and/or touching/steadying and/or contact guard assistance as patient completes activity. Assistance may be provided throughout the activity or intermittently. 3-Partial/Moderate Assistance-helper does LESS THAN HALF the effort. [place] lifts, holds or supports trunk or limbs, but provides less than half the effort. 2-Substantial/Maximal Assistance-helper does MORE THAN HALF the effort. [place] lifts or holds trunk or limbs and provides more than half the effort. 6-Fryvuwaue-mmmxuu does ALL the effort. Patient does none of the effort to complete the activity. Or, the assistance of 2 or more helpers is required for the patient to complete the activity. If activity was not attempted, code reason: 7-Patient Refused. 9-Not Applicable-not attempted and the patient did not perform the activity before the current illness, exacerbation or injury. 10-Not Attempted due to Environmental Limitations-(lack of equipment, weather restraints, etc.). 88-Not Attempted due to Medical Conditions or Safety Concerns. Eating (QC): 6 Oral Hygiene (QC): 6 (completes at sink with mod I) Bathing Location: L Arm, R Arm, L Upper Leg, R Upper Leg, L Lower Leg (includ ing foot), R Lower Leg (including foot), Chest, Abdomen, Buttocks, Perineal Area Shower/Bathe Self (QC): 4 (CGA in stance. Requires cues for foot positioning in stance due to decreased balance. CGA-min A for righting in stance. Use of LHS in sit for LB) Upper Body Dressing (QC): 6 (gathers and dons.) Lower Body Dressing (QC): 4 (SBA, cues for positioning, and cues for LLE prior to RLE.) On/Off Footwear: 2 (max A this date (LOREN hose/ socks)) Toileting Hygiene (QC): 6 (IND in stance/ in sit) Toilet Transfer (QC): 4 (SBA) Other Treatment TTWB through tx, pt ambulates with walker with SBA-SUP. Completes showering/ dressing in shower, min A-CGA in stance due to decreased balance/ increased pain this date. Returns to recliner, min breaks for SOB. Pt and OT discuss home environment and likely need to address TTB rather than walk in shower due to having corner shower with glass surround and lip on shower- making it difficult/ unsafe for pt's entry. Pt completes 1 set of 20 reps of back flies with 2# dumbbells. Pt educated on RB for recovery. Left in room with all needs met, call light in reach, step son present. Pt completes sit to stand and ambulation with walker SBA, toilet transfer SBA and toileting. Pt ambulates to end of garcia to shower room with SBA, no SOB. Pt is demo'd TTB transfer, completes without cues in/out of tub and SBA sit to stand from edge of tub transfer bench and use of R sided gb. Pt is educated on TTB purpose and use on shower, recommendation of 2 gbs within pt's tub OR (as pt expresses his step son desires him to use walk in shower) pt has expressed taking down glass shower surround and replacing. Pt is educated will need real matthews with studs for use of gbs/ security and safety OR the use of a transfer pole from ceiling to floor to get in/ out of shower (placing outside of the shower). Pt expresses these are all options, but discusses security with use of TTB. Pt returns to room, rests in recliner end of session, all needs met, call light in reach. Education OT Patient Education: Correct positioning, Exercise program, Home exercise program, Modified ADL techniques, Progress toward Goal/Update tx plan, Purpose of tx/functional activities, Reviewed precautions, Safety issues, Transfer techn iques Teaching Recipient: Patient Teaching Methods: Demonstration, Discussion Response to Teaching: Verbalize Understanding, Return Demonstration, Reinforcement Needed OT Short Term Goals Short Term Goals Time Frame: Feb 18, 2021 Eatin Oral hygiene: 5 Toileting hygiene: 4 Shower/bathe self: 3 Upper body dressin Lower body dressin Putting on/taking off footwear: 4 OT Long-Term Goals Working Supervisor Goals Time Frame: Feb 25, 2021 Eating (QC): 6 Oral Hygiene (QC): 6 Toileting Hygiene (QC): 6 Shower/Bathe Self (QC): 4 Upper Body Dressing (QC): 5 Lower Body Dressing (QC): 4 On/Off Footwear (QC): 6 Additional Goals: 1-Demonstrate ADL Tasks, 2-Verbalize Understanding, 3- ImproveStrength/Molly 1=Demonstrate adherence to instructed precautions during ADL tasks. 2=Patient will verbalize/demonstrate understanding of assistive devices/modifications for ADL. 3=Patient will improve strength/tolerance for activity to enable patient to perform ADL's. OT Education/Plan Problem List/Assessment Assessment: Decreased Activ Tolerance, Decreased UE Strength, Dependent Transfers, Edema (10 sec pitting L foot/ LE), Impaired Funct Balance, Impaired I ADL's, Impaired Self-Care Skills Discharge Recommendations Plan/Recommendations: Continue POC Therapy Discharge Recommendati: Home & Family, Post Acute OT Equpiment Recommendations-D/C: Extended Bath Bench, Rails on Tub/Shower, Hip Kit Treatment Plan/Plan of Care Treatment,Training & Education: Yes Patient would benefit from OT for education, treatment and training to promote independence in ADL's, mobility, safety and/or upper extremity function for ADL's. Plan of Care: ADL Retraining, Functional Mobility, UE Funct Exercise/Act Treatment Duration: Feb 25, 2021 Frequency: At least 5 of 7 days/Wk (IRF) Estimated Hrs Per Day: 1.5 hours per day Agreement: Yes Rehab Potential: Good Time/GCodes Start Time: 08:00 (1305) Stop Time: 09:15 (1325) Total Time Billed (hr/min): 95 Billed Treatment Time 0157-3450: 1, ADL 4 (60), EX (15)= 75 9130-8330: 1, ADL (20) Total: 95 MARIE THURSTON OTR Feb 19, 2021 10:31
--- NOTE | 2021-02-19 12:02 | Physical Therapy Daily Note ---
PT Daily Note-Current Subjective Pt sitting in recliner upon arrival. Pt agrees to PT. Pain Numeric Pain Scale: 7 Location: Left Location Body Site: Hip Pain Description: Ache, Tightness Mental Status Patient Orientation: Person, Place, Time, Situation Transfers SCALE: Activities may be completed with or without assistive devices. 1-Guikhvzyik-cpllmoo completes the activity by him/herself with no assistance from a helper. 5-Set-up or Clean-up Assistance-helper sets up or cleans up; patient completes activity. [place] assists only prior to or following the activity. 4-Supervision or Touching Assistance-helper provides verbal cues and/or touching/steadying and/or contact guard assistance as patient completes activity. Assistance may be provided throughout the activity or intermittently. 3-Partial/Moderate Assistance-helper does LESS THAN HALF the effort. [place] lifts, holds or supports trunk or limbs, but provides less than half the effort. 2-Substantial/Maximal Assistance-helper does MORE THAN HALF the effort. [place] lifts or holds trunk or limbs and provides more than half the effort. 5-Ajfpqvxxo-zbgtjm does ALL the effort. Patient does none of the effort to complete the activity. Or, the assistance of 2 or more helpers is required for the patient to complete the activity. If activity was not attempted, code reason: 7-Patient Refused. 9-Not Applicable-not attempted and the patient did not perform the activity before the current illness, exacerbation or injury. 10-Not Attempted due to Environmental Limitations-(lack of equipment, weather restraints, etc.). 88-Not Attempted due to Medical Conditions or Safety Concerns. Sit to Stand (QC): 5 Toilet Transfer (QC): 5 Weight Bearing Right Lower Extremity: Right Full Weight Bearing Left Lower Extremity: Left Touch Toe Bearing Gait Training Does the Patient Walk?: Yes Distance: 150' Walk 10 feet (QC): 5 Walk 50 ft with 2 Turns(QC): 5 Walk 150 ft (QC): 5 Gait Persons Needed: 1 Gait Assistive Device: FWW VC for maintaining WB of TTWB. Wheelchair Training Does the Pt Use a Wheelchair?: No Exercises Seated Therapy Exercises: Ankle pumps, Long arc quads, Hip flexion, Hip abd/add, Glut set Seated Reps: 15 NuStep Minutes: 15 NuStep Workload: 3 Treatments TF to standing and uses BR. Pt amb. in hallway then uses NuStep for 15m at WL 4 but after pt reporting increased irritation in L hip, moved WL to 3. Pt completed Seated Ex. Pt amb. in hallway and returns to room to rest in recliner. All needs met, call light in hand. Assessment Current Status: Good Progress Pt needs occasional RB due to fatigue & VC for TTWB. PT Retirement Goals Retirement Goals PT Marketing Operations Intern Goals Time Frame: Mar 09, 2021 Roll Left & Right (QC): 5 Sit to Lying (QC): 5 Lying-Sitting on Side/Bed(QC): 5 Sit to Stand (QC): 5 Chair/Wnv-gj-Wxsac Xfer(QC): 5 Toilet Transfer (QC): 5 Car Transfer (QC): 5 Does the Patient Walk: Yes Walk 10 feet (QC): 5 Walk 50ft with 2 Turns (QC): 5 Walk 150 ft (QC): 5 Walking 10ft on Uneven Surface: 5 1 Step (curb) (QC): 5 4 Steps (QC): 5 12 Steps (QC): 88 Picking up an Object (QC): 5 Wheel 50 feet with 2 turns (QC: 9 Type: N/A Wheel 150 feet: 9 Type: N/A PT Plan Problem List Problem List: Activity Tolerance Treatment/Plan Treatment Plan: Continue Plan of Care Treatment Plan: Bed Mobility, Concurrent Therapy, Education, Functional A ctivity Molly, Functional Strength, Group Therapy, Gait, Safety, Therapeutic Exercise, Transfers Treatment Duration: Mar 09, 2021 Frequency: At least 5 of 7 days/Wk (IRF) Estimated Hrs Per Day: 1.5 hours per day Patient and/or Family Agrees t: Yes Safety Risks/Education Patient Education: Gait Training, Correct Positioning, Safety Issues Teaching Recipient: Patient Teaching Methods: Discussion Response to Teaching: Verbalize Understanding Time/GCodes Time In: 930 Time Out: 1030 Total Billed Treatment Time: 60 Total Billed Treatment 1, GT (15m), FA (15m) & EX x2 (30m) ROOSEVELT ESTRADA YIELD LOSS INSPECTOR Feb 19, 2021 12:02
--- NOTE | 2021-02-19 14:37 | Physical Therapy Daily Note ---
PT Daily Note-Current Subjective Pt sitting in recliner upon arrival. Pt agrees to PT. Pain Numeric Pain Scale: 5-Moderate Pain Location: Left Location Body Site: Hip Pain Description: Ache, Tightness Mental Status Patient Orientation: Person, Place, Time, Situation Transfers SCALE: Activities may be completed with or without assistive devices. 2-Mzhcylforn-zopeubj completes the activity by him/herself with no assistance from a helper. 5-Set-up or Clean-up Assistance-helper sets up or cleans up; patient completes activity. [place] assists only prior to or following the activity. 4-Supervision or Touching Assistance-helper provides verbal cues and/or touching /steadying and/or contact guard assistance as patient completes activity. Assistance may be provided throughout the activity or intermittently. 3-Partial/Moderate Assistance-helper does LESS THAN HALF the effort. [place] lifts, holds or supports trunk or limbs, but provides less than half the effort. 2-Substantial/Maximal Assistance-helper does MORE THAN HALF the effort. [place] lifts or holds trunk or limbs and provides more than half the effort. 1-Lmykmlswf-tzrwmf does ALL the effort. Patient does none of the effort to complete the activity. Or, the assistance of 2 or more helpers is required for the patient to complete the activity. If activity was not attempted, code reason: 7-Patient Refused. 9-Not Applicable-not attempted and the patient did not perform the activity before the current illness, exacerbation or injury. 10-Not Attempted due to Environmental Limitations-(lack of equipment, weather restraints, etc.). 88-Not Attempted due to Medical Conditions or Safety Concerns. Sit to Stand (QC): 5 Weight Bearing Right Lower Extremity: Right Full Weight Bearing Left Lower Extremity: Left Touch Toe Bearing Gait Training Does the Patient Walk?: Yes Distance: 175' x2 Walk 10 feet (QC): 5 Walk 50 ft with 2 Turns(QC): 5 Walk 150 ft (QC): 5 Gait Persons Needed: 1 Gait Assistive Device: FWW Treatments Declines need for BR. TF to standing and amb. in hallway. After RB, pt amb. in hallway and returns to room. HEP reviewed. Pt resting in recliner with all needs met, call light in hand. Assessment Current Status: Good Progress Pt needs RB due to fatigue and discomfort in B shoulders from WB due to TTWB status. PT Coating Machine Helper Goals Halfway Goals PT Halfway Goals Time Frame: Mar 09, 2021 Roll Left & Right (QC): 5 Sit to Lying (QC): 5 Lying-Sitting on Side/Bed(QC): 5 Sit to Stand (QC): 5 Chair/Cqw-db-Pcikb Xfer(QC): 5 Toilet Transfer (QC): 5 Car Transfer (QC): 5 Does the Patient Walk: Yes Walk 10 feet (QC): 5 Walk 50ft with 2 Turns (QC): 5 Walk 150 ft (QC): 5 Walking 10ft on Uneven Surface: 5 1 Step (curb) (QC): 5 4 Steps (QC): 5 12 Steps (QC): 88 Picking up an Object (QC): 5 Wheel 50 feet with 2 turns (QC: 9 Type: N/A Wheel 150 feet: 9 Type: N/A PT Plan Problem List Problem List: Activity Tolerance, Functional Strength Treatment/Plan Treatment Plan: Continue Plan of Care Treatment Plan: Bed Mobility, Concurrent Therapy, Education, Functional Activity Molly, Functional Strength, Group Therapy, Gait, Safety, Therapeutic Exercise, Transfers Treatment Duration: Mar 09, 2021 Frequency: At least 5 of 7 days/Wk (IRF) Estimated Hrs Per Day: 1.5 hours per day Patient and/or Family Agrees t: Yes Safety Risks/Education Patient Education: Gait Training, Correct Positioning Teaching Recipient: Patient Teaching Methods: Discussion Response to Teaching: Verbalize Understanding Time/GCodes Time In: 1330 Time Out: 1400 Total Billed Treatment Time: 30 Total Billed Treatment 1, GT (20m) & FA (10m) ROOSEVELT ESTRADA PARBOILER Feb 19, 2021 14:37
[2021-02-19 20:00] VITALS: BP 110/77
[2021-02-19] MEDS: polyethylene glycoL POWDER 17 GM (MIRALAX) PACK PO SCH (20:26)
[2021-02-20] MEDS: RT-ALBUTEROL/IPRATROPIUM 3 ML (DUONEB) VIAL INH SCH ×3 (07:01→21:38)
[2021-02-20] MEDS: meTOprolol TARTRATE 25 MG (LOPRESSOR) TABLET PO SCH ×2 (07:37→20:41)
[2021-02-20] MEDS: APIXABAN 5 MG (ELIQUIS) TABLET PO SCH ×2 (07:37→20:40)
[2021-02-20] MEDS: HYDROcodone/APAP 5 MG/325 MG (LORTAB) TAB PO PRN ×3 (07:38→20:40)
[2021-02-20] MEDS: guaiFENesin (MUCINEX) 600 MG TAB PO SCH ×2 (07:38→20:40)
[2021-02-20] MEDS: IRON SUCROSE 200 MG/10 ML (VENOFER) VIAL IV SCH (07:38)
[2021-02-20] MEDS: PANTOPRAZOLE 40 MG (PROTONIX) TAB PO SCH (07:38)
[2021-02-20] MEDS: AMIODARONE 200 MG (CORDARONE) TAB PO SCH (07:38)
[2021-02-20] MEDS: DOCUSATE SODIUM 100 MG (COLACE) CAP PO SCH ×2 (08:00→19:36)
[2021-02-20 08:03] VITALS: BP 118/58
--- NOTE | 2021-02-20 09:24 | Occupational Ther Daily Note ---
OT Current Status-Daily Note Subjective [id number]: Pt AxO, states 3/10 pain (pain meds already administered). Agrees to tx. [id number]: Pt alert, states may take nap soon but agrees to tx. Pt states min pain in stance. Mental Status/Objective Patient Orientation: Person, Place, Situation, Normal For Age ADL-Treatment Therapy Code Descriptions/Definitions Functional [place] Measure: 0=Not Assessed/NA 4=Minimal Assistance 1=Total Assistance 5=Supervision or Setup 2=Maximal Assistance 6=Modified [place] 3=Moderate Assistance 7=Complete IndependenceSCALE: Activities may be completed with or without assistive devices. 1-Rfelmdunsb-ubtthst completes the activity by him/herself with no assistance from a helper. 5-Set-up or Clean-up Assistance-helper sets up or cleans up; patient completes activity. [place] assists only prior to or following the activity. 4-Supervision or Touching Assistance-helper provides verbal cues and/or touching/steadying and/or contact guard assistance as patient completes activity. Assistance may be provided throughout the activity or intermittently. 3-Partial/Moderate Assistance-helper does LESS THAN HALF the effort. [place] lifts, holds or supports trunk or limbs, but provides less than half the effort. 2-Substantial/Maximal Assistance-helper does MORE THAN HALF the effort. [place] lifts or holds trunk or limbs and provides more than half the effort. 6-Exnylwpgd-aafagp does ALL the effort. Patient does none of the effort to complete the activity. Or, the assistance of 2 or more helpers is required for the patient to complete the activity. If activity was not attempted, code reason: 7-Patient Refused. 9-Not Applicable-not attempted and the patient did not perform the activity before the current illness, exacerbation or injury. 10-Not Attempted due to Environmental Limitations-(lack of equipment, weather restraints, etc.). 88-Not Attempted due to Medical Conditions or Safety Concerns. Eating (QC): 6 Upper Body Dressing (QC): 6 Toileting Hygiene (QC): 6 Toilet Transfer (QC): 4 Other Treatment Pt sit to stand with SBA, ambulates without cues for TTWB and good compliance. Pt lays on R side in bed, educated on lymphatic system and MLD/ edema massage completed from proximal to distal back proximally to address residential edema and drainage to encourage healing of the LLE and edema management. Pt expresses "soreness" through the L calf. Pt sits EOB for dressing, ambulates to laundry completing with min cues for hand positioning. Pt ambulates without RB to gym, sits to complete 15 min min-mod resistance arm bike to address UE endurance. Pt requires RB after 15 min, returns to room. OT/ pt discuss home environment and thursday meeting. Pt expresses desires to utilize tub/shower due to safety but is unsure if toilet/ bathtub work efficiently. OT to recommend items for bathroom and HHOT to address further home environment issues, UE strength, and I/ADLs within the home. Pt left in recliner with all needs met, call light in reach, LEs elevated. Denies toileting. Pt agrees to ambulation to prepare for home environment. Pt ambulates with SBA-SUP through halls; pt/ OT discuss further home environment and pt is educated on safety. Pt demo's slight SOB in stance, 02 at 96-98%. Pt returns to room after 1 RB, sits in recliner with all needs met, call light in reach. Education OT Patient Education: Correct positioning, Exercise program, Home exercise program, Progress toward Goal/Update tx plan, Purpose of tx/functional activiti es, Safety issues, Transfer techniques Teaching Recipient: Patient Teaching Methods: Demonstration, Discussion Response to Teaching: Verbalize Understanding, Return Demonstration OT Short Term Goals Short Term Goals Time Frame: Feb 18, 2021 Eatin Oral hygiene: 5 Toileting hygiene: 4 Shower/bathe self: 3 Upper body dressin Lower body dressin Putting on/taking off footwear: 4 OT Bulldozer Operator Goals Bulldozer Operator Goals Time Frame: Feb 25, 2021 Eating (QC): 6 Oral Hygiene (QC): 6 Toileting Hygiene (QC): 6 Shower/Bathe Self (QC): 4 Upper Body Dressing (QC): 5 Lower Body Dressing (QC): 4 On/Off Footwear (QC): 6 Additional Goals: 1-Demonstrate ADL Tasks, 2-Verbalize Understanding, 3- ImproveStrength/Molly 1=Demonstrate adherence to instructed precautions during ADL tasks. 2=Patient will verbalize/demonstrate understanding of assistive devices/modifications for ADL. 3=Patient will improve strength/tolerance for activity to enable patient to perform ADL's. OT Education/Plan Problem List/Assessment Assessment: Decreased Activ Tolerance, Dependent Transfers, Edema (5 sec pitting dorsum of L foot), Impaired Bed Mobility (when completing on higher bed surface as in at home.), Impaired Funct Balance, Impaired I ADL's, Impaired Self-Care Skills Discharge Recommendations Plan/Recommendations: Continue POC Therapy Discharge Recommendati: Home & Family, Post Acute OT Equpiment Recommendations-D/C: Extended Bath Bench, Rails on Tub/Shower, Other, See Comments Comment bed rail Treatment Plan/Plan of Care Treatment,Training & Education: Yes Patient would benefit from OT for education, treatment and training to promote independence in ADL's, mobility, safety and/or upper extremity function for ADL's. Plan of Care: ADL Retraining, Functional Mobility, UE Funct Exercise/Act Treatment Duration: Feb 25, 2021 Frequency: At least 5 of 7 days/Wk (IRF) Estimated Hrs Per Day: 1.5 hours per day Agreement: Yes Rehab Potential: Good Time/GCodes Start Time: 08:00 (1145) Stop Time: 09:15 (1200) Total Time Billed (hr/min): 90 Billed Treatment Time 2658-9464: 1, ADL, EX 4 (75) [id number]: 1, EX (15) MARIE THURSTON OTR Feb 20, 2021 09:24
[2021-02-20] MEDS: SENNA W/DOCUSATE (SENOKOT S) TABLET PO SCH ×2 (09:51→20:40)
--- NOTE | 2021-02-20 10:27 | Cardiology Progress Note ---
Subjective Date Seen by Provider: Feb 20, 2021 Time Seen by Provider: 10:26 Subjective/Events-last exam Patient is with PT, no new complaints. Denies any chest pain or dyspnea Review of Systems General: No Chills, No Night Sweats, No Fatigue, No Malaise, No Appetite, No Other HEENT: No Head Aches, No Visual Changes, No Eye Pain, No Ear Pain, No Dysphasia, No Sinus Congestion, No Post Nasal Drip, No Sore Throat, No Other Pulmonary: No Dyspnea, No Cough, No Pleuritic Chest Pain, No Other Cardiovascular: No: Chest Pain, Palpitations, Orthopnea, Paroxysmal Noc. Dyspnea, Edema, Lt Headedness, Other Objective-Cardiology Exam Last Set of Vital Signs Vital Signs 02/18/21 02/20/21 02/20/21 11:57 08:03 14:24 Temp 36.6 Pulse 58 Resp 14 B/P (MAP) 118/58 (78) Pulse Ox 94 O2 Delivery Room Air FiO2 21 General: Alert, Oriented X3, Cooperative HEENT: Atraumatic, PERRLA Neck: Supple, No JVD, No Thyromegaly Lungs: Clear to Auscultation, Normal Air Movement Heart: Regular Rate, Normal S1, Normal S2, No Murmurs Abdomen: Normal Bowel Sounds, Soft, No Tenderness, No Hepatosplenomegaly, No Masses Extremities: No Clubbing, No Cyanosis, No Edema, Normal Pulses, No Tenderness/Swelling Skin: No Rashes, No Breakdown, No Significant Lesion Neuro: Normal Gait, Normal Speech Psych/Mental Status: Mental Status NL, Mood NL A/P-Cardiology Admission Diagnosis PAF Anemia L hip fx Renal insufficiency Assessment/Plan Paroxysmal atrial fibrillation, maintained on Amiodarone 200mg, Eliqius 5mg BID, Lopressor 12.5 BID. Continue to monitor. [id number] score of 2, yearly risk of stroke without oral anticoagulation is 2.2%. Maintained on Eliquis Anemia, continue to monitor H/H, management per medical services. Left hip fracture, underwent surgical repair with Dr. Morrison on February 01, 2021, receiving physical therapy Renal insufficiency, monitor renal function. Patient was seen and evaluated, feeling well no new complaint continue to monitor blood pressure Supervisory-Addendum Brief Supervisory Addendum Participated in pt care: history, MDM, physical Personally performed: exam, history, MDM Care discussed with: PA Results interpretation: Verified all documentation KATE GAYTAN Feb 20, 2021 10:27 JENNIFER RIVER MD Feb 20, 2021 18:23
--- NOTE | 2021-02-20 11:08 | Physical Therapy Daily Note ---
PT Daily Note-Current Subjective Pt sitting in recliner upon arrival. Pt agrees to PT. Pain Numeric Pain Scale: 5-Moderate Pain Location: Left Location Body Site: Hip Pain Description: Ache Mental Status Patient Orientation: Person, Place, Time, Situation Transfers SCALE: Activities may be completed with or without assistive devices. 6-Dgyzjmhgcn-shyazoa completes the activity by him/herself with no assistance f rom a helper. 5-Set-up or Clean-up Assistance-helper sets up or cleans up; patient completes activity. [place] assists only prior to or following the activity. 4-Supervision or Touching Assistance-helper provides verbal cues and/or touching/steadying and/or contact guard assistance as patient completes activity. Assistance may be provided throughout the activity or intermittently. 3-Partial/Moderate Assistance-helper does LESS THAN HALF the effort. [place] lifts, holds or supports trunk or limbs, but provides less than half the effort. 2-Substantial/Maximal Assistance-helper does MORE THAN HALF the effort. [place] lifts or holds trunk or limbs and provides more than half the effort. 5-Obkvzhbeb-axnvff does ALL the effort. Patient does none of the effort to complete the activity. Or, the assistance of 2 or more helpers is required for the patient to complete the activity. If activity was not attempted, code reason: 7-Patient Refused. 9-Not Applicable-not attempted and the patient did not perform the activity before the current illness, exacerbation or injury. 10-Not Attempted due to Environmental Limitations-(lack of equipment, weather restraints, etc.). 88-Not Attempted due to Medical Conditions or Safety Concerns. Sit to Stand (QC): 5 Toilet Transfer (QC): 5 Weight Bearing Right Lower Extremity: Right Full Weight Bearing Left Lower Extremity: Left Touch Toe Bearing Gait Training Does the Patient Walk?: Yes Distance: 100', 200' Walk 10 feet (QC): 5 Walk 50 ft with 2 Turns(QC): 5 Walk 150 ft (QC): 5 Gait Persons Needed: 1 Gait Assistive Device: FWW Wheelchair Training Does the Pt Use a Wheelchair?: No Exercises Seated Therapy Exercises: Ankle pumps, Long arc quads, Hip flexion, Glut set Seated Reps: 15 NuStep Minutes: 15 NuStep Workload: 3 Treatments [id number]: TF to standing and uses BR. Pt amb. in hallway before using NuStep. Pt takes RB then completes Seated Ex. Pt amb. in hallway before returning to room to rest in recliner. All needs met, call light in hand. [id number]: TF to standing and amb. in hallway (~150' then RB, then additional 150'). Pt returns to room to rest in recliner. Pt is repositioned to comfort. All needs met, call light in hand. Assessment Current Status: Good Progress Pt needs occasional RB due to fatigue. Pt reports pain in L hip while ambulating. 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 Goals Chcf Goals PT [facility] Goals Time Frame: Mar 09, 2021 Roll Left & Right (QC): 5 Sit to Lying (QC): 5 Lying-Sitting on Side/Bed(QC): 5 Sit to Stand (QC): 5 Chair/Hkt-wk-Mdorw Xfer(QC): 5 Toilet Transfer (QC): 5 Car Transfer (QC): 5 Does the Patient Walk: Yes Walk 10 feet (QC): 5 Walk 50ft with 2 Turns (QC): 5 Walk 150 ft (QC): 5 Walking 10ft on Uneven Surface: 5 1 Step (curb) (QC): 5 4 Steps (QC): 5 12 Steps (QC): 88 Picking up an Object (QC): 5 Wheel 50 feet with 2 turns (QC: 9 Type: N/A Wheel 150 feet: 9 Type: N/A PT Plan Problem List Problem List: Activity Tolerance, Functional Strength Treatment/Plan Treatment Plan: Continue Plan of Care Treatment Plan: Bed Mobility, Concurrent Therapy, Education, Functional Activity Molly, Functional Strength, Group Therapy, Gait, Safety, Therapeutic Exercise, Transfers Treatment Duration: Mar 09, 2021 Frequency: At least 5 of 7 days/Wk (IRF) Estimated Hrs Per Day: 1.5 hours per day Patient and/or Family Agrees t: Yes Safety Risks/Education Patient Education: Gait Training, Correct Positioning, Safety Issues Teaching Recipient: Patient Teaching Methods: Discussion Response to Teaching: Verbalize Understanding Time/GCodes Time In: 1000 Time Out: 1100 Total Billed Treatment Time: 60 Total Billed Treatment [id number]: 1, GT (15m), EX x2 (30m) & FA (15m) [id number]: 1, FA (10m) & GT (20m) ROOSEVELT ESTRADA PTA Feb 20, 2021 11:08
--- NOTE | 2021-02-20 11:27 | Progress Note ---
Standard Progress Note Progress Notes/Assess & Plan Date Seen by a Provider: Feb 20, 2021 Time Seen by a Provider: 11:26 Progress/Assessment & Plan feeling better Vital Signs Date Time Temp Pulse Resp B/P (MAP) Pulse Ox O2 Delivery O2 Flow Rate FiO2 02/13/21 06:16 94 Room Air 02/13/21 01:00 61 02/12/21 20:40 91 Room Air 02/12/21 20:10 Room Air 02/12/21 20:06 65 108/55 (72) 02/12/21 19:25 36.7 69 18 96/59 (71) 93 02/12/21 19:00 66 02/12/21 15:05 90 Room Air 02/12/21 09:00 Room Air 02/12/21 08:54 71 125/58 (80) 95 Room Air Incision clean and dry. No calf tenderness. Neg Sherly's good abd/adduction strength poor SLR s/p L hip IM aarti TTWB LLE Final Diagnosis no complaints LLE SLR with assistance. Min pain with IR/ER of hip incision well healed s/p L hip IM aarti TTWB LLE HUMERA BERNAL MD Feb 20, 2021 11:27
[2021-02-20] MEDS: polyethylene glycoL POWDER 17 GM (MIRALAX) PACK PO SCH (19:36)
[2021-02-20 20:00] VITALS: BP 112/57
[2021-02-21] MEDS: HYDROcodone/APAP 5 MG/325 MG (LORTAB) TAB PO PRN ×4 (02:02→20:21)
[2021-02-21 07:38] VITALS: BP 131/89
[2021-02-21] MEDS: RT-ALBUTEROL/IPRATROPIUM 3 ML (DUONEB) VIAL INH SCH ×2 (08:13→20:58)
--- NOTE | 2021-02-21 08:32 | Cardiology Progress Note ---
Subjective Date Seen by Provider: Feb 21, 2021 Time Seen by Provider: 08:31 Subjective/Events-last exam Patient is sitting up in chair, no new complaints. Denies any chest pain or dypsnea. Review of Systems General: No Chills, No Night Sweats; Fatigue; No Malaise, No Appetite, No Other HEENT: No Head Aches, No Visual Changes, No Eye Pain, No Ear Pain, No Dysphasia, No Sinus Congestion, No Post Nasal Drip, No Sore Throat, No Other Pulmonary: No Dyspnea, No Cough, No Pleuritic Chest Pain, No Other Cardiovascular: No: Chest Pain, Palpitations, Orthopnea, Paroxysmal Noc. Dyspnea, Edema, Lt Headedness, Other Objective-Cardiology Exam Last Set of Vital Signs Vital Signs 02/18/21 02/21/21 02/21/21 02/21/21 11:57 07:38 08:13 08:48 Temp 36.4 Pulse 72 Resp 16 B/P (MAP) 131/89 (103) Pulse Ox 93 O2 Delivery Room Air FiO2 21 General: Alert, Oriented X3, Cooperative HEENT: Atraumatic, PERRLA Neck: Supple, No JVD, No Thyromegaly Lungs: Clear to Auscultation, Normal Air Movement Heart: Regular Rate, Normal S1, Normal S2, No Murmurs Abdomen: Normal Bowel Sounds, Soft, No Tenderness, No Hepatosplenomegaly, No Masses Extremities: No Clubbing, No Cyanosis, No Edema, Normal Pulses, No Tenderness/Swelling Skin: No Rashes, No Breakdown, No Significant Lesion Neuro: Normal Gait, Normal Speech Psych/Mental Status: Mental Status NL, Mood NL A/P-Cardiology Admission Diagnosis PAF Anemia L hip fx Renal insufficiency Assessment/Plan Paroxysmal atrial fibrillation, maintained on Amiodarone 200mg, Eliqius 5mg BID, Lopressor 12.5 BID. Continue to monitor. [id number] score of 2, yearly risk of stroke without oral anticoagulation is 2.2%. Maintained on Eliquis Anemia, continue to monitor H/H, management per medical services. Left hip fracture, underwent surgical repair with Dr. Morrison on February 01, 2021, receiving physical therapy Renal insufficiency, monitor renal function. Patient was seen and evaluated with Keke, seen at bedside sitting down comfortably, no new complaint Blood pressure is stable. Continue to monitor Heart rate is regular. Maintained on amiodarone and Eliquis. Supervisory-Addendum Brief Supervisory Addendum Participated in pt care: history, MDM, physical Personally performed: exam, history, MDM Care discussed with: PA Results interpretation: Verified all documentation KEKE GAYTAN Feb 21, 2021 08:32 JENNIFER RIVER MD Feb 21, 2021 09:09
[2021-02-21] MEDS: DOCUSATE SODIUM 100 MG (COLACE) CAP PO SCH ×2 (08:39→20:21)
[2021-02-21] MEDS: guaiFENesin (MUCINEX) 600 MG TAB PO SCH ×2 (08:39→20:21)
[2021-02-21] MEDS: meTOprolol TARTRATE 25 MG (LOPRESSOR) TABLET PO SCH ×2 (08:40→20:26)
[2021-02-21] MEDS: APIXABAN 5 MG (ELIQUIS) TABLET PO SCH ×2 (08:41→20:21)
[2021-02-21] MEDS: AMIODARONE 200 MG (CORDARONE) TAB PO SCH (08:41)
[2021-02-21] MEDS: SENNA W/DOCUSATE (SENOKOT S) TABLET PO SCH ×2 (08:41→20:21)
[2021-02-21] MEDS: PANTOPRAZOLE 40 MG (PROTONIX) TAB PO SCH (08:41)
--- NOTE | 2021-02-21 10:08 | Occupational Ther Daily Note ---
OT Current Status-Daily Note Subjective Pt AxO, desires to get dressed this am. Pt expresses continued ache/ pains in the L hip, however does not rate specifically. Pt is provided with education, rest, and therapeutic modalities and end of session pt expresses pain is, "Not nearly as bad." Pt alert, agrees to tx. Pt states min pain in L hip. Pt expresses used stairs with PT and states difficulty. Desires to increase endurance/ strength in UEs, agrees to gym time. Mental Status/Objective Patient Orientation: Person, Place, Situation, Normal For Age ADL-Treatment Therapy Code Descriptions/Definitions Functional [place] Measure: 0=Not Assessed/NA 4=Minimal Assistance 1=Total Assistance 5=Supervision or Setup 2=Maximal Assistance 6=Modified [place] 3=Moderate Assistance 7=Complete IndependenceSCALE: Activities may be completed with or without assistive devices. 4-Yabemcfbjp-lqlpdyt completes the activity by him/herself with no assistance from a helper. 5-Set-up or Clean-up Assistance-helper sets up or cleans up; patient completes activity. [place] assists only prior to or following the activity. 4-Supervision or Touching Assistance-helper provides verbal cues and/or touching/steadying and/or contact guard assistance as patient completes activity. Assistance may be provided throughout the activity or intermittently. 3-Partial/Moderate Assistance-helper does LESS THAN HALF the effort. [place] lifts, holds or supports trunk or limbs, but provides less than half the effort. 2-Substantial/Maximal Assistance-helper does MORE THAN HALF the effort. [place] lifts or holds trunk or limbs and provides more than half the effort. 4-Vbidrenxt-hwmsys does ALL the effort. Patient does none of the effort to compl ete the activity. Or, the assistance of 2 or more helpers is required for the patient to complete the activity. If activity was not attempted, code reason: 7-Patient Refused. 9-Not Applicable-not attempted and the patient did not perform the activity before the current illness, exacerbation or injury. 10-Not Attempted due to Environmental Limitations-(lack of equipment, weather restraints, etc.). 88-Not Attempted due to Medical Conditions or Safety Concerns. Eating (QC): 6 Oral Hygiene (QC): 6 (IND at sink.) Shower/Bathe Self (QC): 7 Upper Body Dressing (QC): 5 Lower Body Dressing (QC): 4 (SBA, increased rest time, use of AE (inventory clerk) with education intermittently and training for repetion/ ease.) Toileting Hygiene (QC): 6 Toilet Transfer (QC): 4 (SUP, walker) Other Treatment Pt sit to stands with SBA-SUP, ambulation with walker. Pt completes toileting and hygiene on toilet. Doffs LB dressing and dons new briefs with education for L prior to R as pt threads R and then is unable to thread L. Pt receptive, increased pain so utilizes AE. Pt states need for RB. Rests and brushes teeth in stance with good abilities/ fair balance. Pt returns to chair, education and repetition training of use of inventory clerk/ dressing stick for pant donning/ doffing- utilizes theraband to don over L, then R with inventory clerk (educated on adaptive techniques/ safety with inventory clerk) and dressing stick to doff R then L. Pt then dons pants with good ability, no cues, SBA in stance. Pt is educated on use of TENS, diaphragmatic breathing, and meditation with increased quick neuro receptor stimulation (light touch) for pain management techniques. Pt return demo's diaphragmatic breathing and meditation with mod cues. Pt then utilizes NMES in place of TENS (low setting, TENS setting) for 15 minutes while completing UE ex. End of session pt expresses less pain, all needs met, call light in reach. Pt ambulates to bathroom SUP, completes toileting SUP, good ability. Pt ambulates to gym SBA, completes 10 min mod resistance arm bike ex, expresses, "This is tough." Encouraged to take breaks when needed. Takes 1 RB, ambulates to recliner with SBA, sits in recliner with all needs met, call light in reach. Education OT Patient Education: Correct positioning, Energy conservation, Exercise program, Home exercise program, Modified ADL techniques, Progress toward Goal/Update tx plan, Purpose of tx/functional activities, Reviewed precautions, Safety issues, Use of adapted equipment Teaching Recipient: Patient Teaching Methods: Demonstration, Discussion Response to Teaching: Verbalize Understanding, Return Demonstration OT Short Term Goals Short Term Goals Time Frame: Feb 18, 2021 Eatin Oral hygiene: 5 Toileting hygiene: 4 Shower/bathe self: 3 Upper body dressin Lower body dressin Putting on/taking off footwear: 4 OT Alf Goals Marketing Recruiter Goals Time Frame: Feb 25, 2021 Eating (QC): 6 Oral Hygiene (QC): 6 Toileting Hygiene (QC): 6 Shower/Bathe Self (QC): 4 Upper Body Dressing (QC): 5 Lower Body Dressing (QC): 4 On/Off Footwear (QC): 6 Additional Goals: 1-Demonstrate ADL Tasks, 2-Verbalize Understanding, 3-ImproveStrength/Molly 1=Demonstrate adherence to instructed precautions during ADL tasks. 2=Patient will verbalize/demonstrate understanding of assistive devices/modifications for ADL. 3=Patient will improve strength/tolerance for activity to enable patient to perform ADL's. OT Education/Plan Problem List/Assessment Assessment: Decreased Activ Tolerance, Decreased UE Strength, Edema, Impaired Funct Balance, Impaired I ADL's, Impaired Self-Care Skills Discharge Recommendations Plan/Recommendations: Continue POC Therapy Discharge Recommendati: Home & Family, Post Acute OT Equpiment Recommendations-D/C: Extended Bath Bench, Rails on Tub/Shower, Hip Kit Treatment Plan/Plan of Care Treatment,Training & Education: Yes Patient would benefit from OT for education, treatment and training to promote independence in ADL's, mobility, safety and/or upper extremity function for ADL's. Plan of Care: ADL Retraining, Functional Mobility, UE Funct Exercise/Act Treatment Duration: Feb 25, 2021 Frequency: At least 5 of 7 days/Wk (IRF) Estimated Hrs Per Day: 1.5 hours per day Agreement: Yes Rehab Potential: Good Time/GCodes Start Time: 09:00 (1330) Stop Time: 10:00 (1400) Total Time Billed (hr/min): 90 Billed Treatment Time 1, ADL 2, EX, ES (60) 1, ADL, EX (30) Total: 90 MARIE THURSTON OTR Feb 21, 2021 10:08
--- NOTE | 2021-02-21 11:11 | Physical Therapy Daily Note ---
PT Daily Note-Current Subjective Pt sitting in recliner upon arrival. Pt agrees to PT. Pain Numeric Pain Scale: 5-Moderate Pain Location: Left Location Body Site: Hip Pain Description: Ache Mental Status Patient Orientation: Person, Place, Situation Transfers SCALE: Activities may be completed with or without assistive devices. 6-Fkkjybfhpk-ytqythe completes the activity by him/herself with no assistance from a helper. 5-Set-up or Clean-up Assistance-helper sets up or cleans up; patient completes activity. [place] assists only prior to or following the activity. 4-Supervision or Touching Assistance-helper provides verbal cues and/or touching/steadying and/or contact guard assistance as patient completes activity. Assistance may be provided throughout the activity or intermittently. 3-Partial/Moderate Assistance-helper does LESS THAN HALF the effort. [place] lifts, holds or supports trunk or limbs, but provides less than half the effort. 2-Substantial/Maximal Assistance-helper does MORE THAN HALF the effort. [place] lifts or holds trunk or limbs and provides more than half the effort. 0-Otmfiwsva-teuvwy does ALL the effort. Patient does none of the effort to complete the activity. Or, the assistance of 2 or more helpers is required for the patient to complete the activity. If activity was not attempted, code reason: 7-Patient Refused. 9-Not Applicable-not attempted and the patient did not perform the activity before the current illness, exacerbation or injury. 10-Not Attempted due to Environmental Limitations-(lack of equipment, weather restraints, etc.). 88-Not Attempted due to Medical Conditions or Safety Concerns. Sit to Stand (QC): 5 Toilet Transfer (QC): 5 Weight Bearing Right Lower Extremity: Right Full Weight Bearing Left Lower Extremity: Left Touch Toe Bearing Gait Training Does the Patient Walk?: Yes Distance: 100', 150' Walk 10 feet (QC): 5 Walk 50 ft with 2 Turns(QC): 5 Walk 150 ft (QC): 5 Gait Persons Needed: 1 Gait Assistive Device: FWW Wheelchair Training Does the Pt Use a Wheelchair?: No Stair Training Pt attempts variations of stairs (trying curb step to step into FWW, using 1 rail and turning to right side to keep WB status, discussed having shoulder assistance from family but did not perform). Pt had difficulty and needed VC to sequence task. Exercises Seated Therapy Exercises: Ankle pumps, Long arc quads, Hip flexion, Glut set Seated Reps: 15 NuStep Minutes: 15 NuStep Workload: 4 Treatments 900-1000: TF to standing and uses BR. Pt amb. in hallway. Pt attempts variation of stairs (See Stair Training). Pt takes RB before completing Seated Ex then amb. in hallway. Pt returns to room to rest in recliner with all needs met, call light in hand. [id number]: TF to standing and amb. in hallway. Pt uses NuStep for 15m at WL 4. Pt amb. back to room to rest at end of tx. All needs met, call light in hand. Assessment Current Status: Good Progress Pt is able to tolerate tx better today. Pt reports OT uses TENS unit to assist controlling pain and this assists with tx today. 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 Goals Shelter Goals PT Shelter Goals Time Frame: Mar 09, 2021 Roll Left & Right (QC): 5 Sit to Lying (QC): 5 Lying-Sitting on Side/Bed(QC): 5 Sit to Stand (QC): 5 Chair/Xao-dp-Lxavx Xfer(QC): 5 Toilet Transfer (QC): 5 Car Transfer (QC): 5 Does the Patient Walk: Yes Walk 10 feet (QC): 5 Walk 50ft with 2 Turns (QC): 5 Walk 150 ft (QC): 5 Walking 10ft on Uneven Surface: 5 1 Step (curb) (QC): 5 4 Steps (QC): 5 12 Steps (QC): 88 Picking up an Object (QC): 5 Wheel 50 feet with 2 turns (QC: 9 Type: N/A Wheel 150 feet: 9 Type: N/A PT Plan Problem List Problem List: Activity Tolerance, Functional Strength Treatment/Plan Treatment Plan: Continue Plan of Care Treatment Plan: Bed Mobility, Concurrent Therapy, Education, Functional Activity Molly, Functional Strength, Group Therapy, Gait, Safety, Therapeutic Exercise, Transfers Treatment Duration: Mar 09, 2021 Frequency: At least 5 of 7 days/Wk (IRF) Estimated Hrs Per Day: 1.5 hours per day Patient and/or Family Agrees t: Yes Safety Risks/Education Patient Education: Gait Training, Steps, Correct Positioning, Safety Issues Teaching Recipient: Patient Teaching Methods: Discussion Response to Teaching: Verbalize Understanding Time/GCodes Time In: 1000 Time Out: 1100 Total Billed Treatment Time: 60 Total Billed Treatment [id number]: 1,GT (20m), FA x2 (25m) & EX (15m) [id number]: 1, GT (15m) & EX (15m) ROOSEVELT ESTRADA BOTTLE PACKER Feb 21, 2021 11:11
--- NOTE | 2021-02-21 18:16 | PM&R Progress Note ---
Subjective HPI/CC On Admission Date Seen by Provider: Feb 21, 2021 Time Seen by Provider: 15:00 Subjective/Events-last exam 02/21/2021: This visit is via video chat due to Covid related restriction for this provider Patient doing really well Has no major issues today Bowels moved yesterday Decreased pain noted Working on the entrance and shower at his house Stool softeners are maintained Discharge plan for Thursday [facility] is his pharmacy 02/19/2021: Patient feels really good Less pain today No A. fib with RVR Bowels are moving well Amiodarone decreased to 200 mg daily from 400 mg twice daily Blood pressure 105/66 02/18/2021: Patient doing pretty well Much improved Creatinine 1.73 and when he was admitted it was 1.4 indicating chronic kidney disease Hemoglobin 9.5 02/17/2021: Patient not having a good day Pain is an issue Seems to be very tired today Has worked very hard this week Dr. Roque will check labs in the morning 02/16/2021: Patient feeling pretty good trying to get used to having a heart problem IV iron infusion tolerated Pain is well controlled 02/15/21: Patient stable Hip pain increased today Pain meds given No issues 02/14/2021: Bowels are moving good IV iron infusion maintained Feels stronger No AF with RVR noted 02/13/2021: Pt doing pretty well Pain is managed with Oxycodone IV iron infusions maintained Normal sinus rhythm on telemetry so with DC telemetry 02/12/2021: Pt doing pretty well Had a bowel movement today Hemoglobin 9.0 IV iron will be restarted Creatinine at 1.41, will monitor that closely A fib is well controlled Review of Systems General: Fatigue, Malaise Musculoskeletal: leg pain Neurological: Weakness Objective Exam Vital Signs Vital Signs Date Time Temp Pulse Resp B/P (MAP) Pulse Ox O2 Delivery O2 Flow Rate FiO2 02/21/21 08:48 Room Air 02/21/21 08:13 93 02/21/21 07:38 36.4 72 16 131/89 (103) 02/18/21 11:57 21 Capillary Refill : General Appearance: No Apparent Distress, WD/WN, Chronically ill HEENT: PERRL/EOMI, Normal ENT Inspection, Pharynx Normal Neck: Full Range of Motion, Normal Inspection, Non Tender, Supple, Carotid Bruit Respiratory: Chest Non Tender, Lungs Clear, Normal Breath Sounds, No Accessory Muscle Use, No Respiratory Distress Cardiovascular: Regular Rate, Rhythm, No Edema, No Gallop, No JVD, No Murmur, Normal Peripheral Pulses Gastrointestinal: Normal Bowel Sounds, No Organomegaly, No Pulsatile Mass, Non Tender, Soft Back: Normal Inspection, No CVA Tenderness, No Vertebral Tenderness Extremity: Normal Capillary Refill, Normal Inspection, Normal Range of Motion, Non Tender, No Calf Tenderness, No Pedal Edema Neurologic/Psychiatric: Alert, Oriented x3, No Motor/Sensory Deficits, heel molder II- XII Norm as Tested, Abnormal Gait, Depressed Affect, Motor Weakness (Left leg) Skin: Normal Color, Warm/Dry Lymphatic: No Adenopathy Results/Procedures Lab Patient resulted labs reviewed. FIM Transfers Therapy Code Descriptions/Definitions Functional [place] Measure: 0=Not Assessed/NA 4=Minimal Assistance 1=Total Assistance 5=Supervision or Setup 2=Maximal Assistance 6=Modified [place] 3=Moderate Assistance 7=Complete IndependenceSCALE: Activities may be completed with or without assistive devices. 4-Rxymsmofrf-ddcfohm completes the activity by him/herself with no assistance from a helper. 5-Set-up or Clean-up Assistance-helper sets up or cleans up; patient completes activity. [place] assists only prior to or following the activity. 4-Supervision or Touching Assistance-helper provides verbal cues and/or touching/steadying and/or contact guard assistance as patient completes activity. Assistance may be provided throughout the activity or intermittently. 3-Partial/Moderate Assistance-helper does LESS THAN HALF the effort. [place] lifts, holds or supports trunk or limbs, but provides less than half the effort. 2-Substantial/Maximal Assistance-helper does MORE THAN HALF the effort. [place] lifts or holds trunk or limbs and provides more than half the effort. 5-Iejznmnse-vnkugs does ALL the effort. Patient does none of the effort to complete the activity. Or, the assistance of 2 or more helpers is required for the patient to complete the activity. If activity was not attempted, code reason: 7-Patient Refused. 9-Not Applicable-not attempted and the patient did not perform the activity before the current illness, exacerbation or injury. 10-Not Attempted due to Environmental Limitations-(lack of equipment, weather restraints, etc.). 88-Not Attempted due to Medical Conditions or Safety Concerns. Roll Left to Right (QC): 6 Sit to Lying (QC): 3 Sit to Stand (QC): 5 Chair/Jxk-cb-Fwmiw Xfer(QC): 4 Car Transfer (QC): 4 Gait Training Does the Patient Walk?: Yes Distance: 100', 150' Walk 10 feet (QC): 5 Walk 50 ft with 2 Turns(QC): 5 Walk 150 ft (QC): 5 Walking 10ft/uneven surface-QC: 3 Gait Persons Needed: 1 Gait Assistive Device: FWW Wheelchair Training Does the Pt Use a Wheelchair?: No Distance: 10' Wheel 50 ft with 2 turns (QC): 88 Wheel 150 ft (QC): 88 Type of Wheelchair: Manual Stair Training Stair Training: Handrails/: 2 handrails #of Steps: 1 1 Step (curb) (QC): 3 4 Steps (QC): 3 (B handrails; TTWB maintained; skilled cues for sequencing and technique. ) 12 Steps (QC): 88 Balance Picking up an Object (QC): 4 (in seated position) ADL-Treatment Eating (QC): 6 Oral Hygiene (QC): 6 (IND at sink.) Bathing Location: L Arm, R Arm, L Upper Leg, R Upper Leg, L Lower Leg (including foot), R Lower Leg (including foot), Chest, Abdomen, Buttocks, Perineal Area Shower/Bathe Self (QC): 7 Upper Body Dressing (QC): 5 Lower Body Dressing (QC): 4 (SBA, increased rest time, use of AE (conveyor system operator) with education intermittently and training for repetion/ ease.) On/Off Footwear (QC): 2 (max A this date (LOREN hose/ socks)) Toileting Hygiene (QC): 6 Toilet Transfer (QC): 4 (SUP, walker) Assessment/Plan Assessment and Plan Assess & Plan/Chief Complaint Assessment: Severe debility due to left hip fracture Atrial fibrillation with rapid ventricular response requiring transfer to the ICU 02/06/21 and discharged from inpatient rehab since less than 3 days of admission Displaced and comminuted intertrochanteric fracture of the left femur status post uncomplicated repair 02/01/21 status post repair by Dr. ZAFUTA New onset episode of atrial fibrillation with rapid ventricular rate requiring ICU admission 02/04/21 and Cardizem drip Postop anemia from acute blood loss requiring 4 units of blood in total Severe postop constipation now resolved Plan: Inpatient rehab protocol Pain control Monitor hemoglobin Monitor atrial fibrillation Appreciate cardiology consultation 02/12/2021: Monitor atrial fibrillation with telemetry Supportive care PT and OT per protocol Pain control 02/13/2021: Pain control Rehab protocol Fall risk 02/14/2021: Pain control IV iron infusions Monitor A. fib 02/15/21: Pain meds effective Monitor for AF 02/16/2021: Pain control Monitor closely IV iron infusions 02/17/2021: Maintain IV iron Monitor closely Fall risk Pain control 02/18/2021: Complete IV iron infusions Monitor closely 02/19/2021: Decreased amiodarone dosing and frequency Monitor closely 02/21/2021: Monitor pain Prepare for discharge on Thursday (1) Intertrochanteric fracture of left femur Status: Acute (2) Atrial fibrillation with RVR Status: Acute (3) MERVIN (acute kidney injury) Status: Acute (4) Postoperative anemia Status: Acute APRYL KAMINSKI DO Feb 21, 2021 18:16
[2021-02-21 20:00] VITALS: BP 105/60
[2021-02-21] MEDS: polyethylene glycoL POWDER 17 GM (MIRALAX) PACK PO SCH (20:26)
[2021-02-22] MEDS: RT-ALBUTEROL/IPRATROPIUM 3 ML (DUONEB) VIAL INH SCH ×3 (07:02→21:11)
--- NOTE | 2021-02-22 07:47 | PM&R Progress Note ---
Subjective HPI/CC On Admission Date Seen by Provider: Feb 22, 2021 Time Seen by Provider: 12:45 Subjective/Events-last exam 02/22/2021: This visit is via video chat due to Covid related restriction for this provider Patient doing pretty well Had a lot of pain this morning He does not feel like he needs a change in his pain medication Had held metoprolol for the past 2 nights due to bradycardia but heart rate now is in 70s Dr. Roque will be updated Bowels are moving okay 02/21/2021: This visit is via video chat due to Covid related restriction for this provider Patient doing really well Has no major issues today Bowels moved yesterday Decreased pain noted Working on the entrance and shower at his house Stool softeners are maintained Discharge plan for Thursday [facility] is his pharmacy 02/19/2021: Patient feels really good Less pain today No A. fib with RVR Bowels are moving well Amiodarone decreased to 200 mg daily from 400 mg twice daily Blood pressure 105/66 02/18/2021: Patient doing pretty well Much improved Creatinine 1.73 and when he was admitted it was 1.4 indicating chronic kidney disease Hemoglobin 9.5 02/17/2021: Patient not having a good day Pain is an issue Seems to be very tired today Has worked very hard this week Dr. Roque will check labs in the morning 02/16/2021: Patient feeling pretty good trying to get used to having a heart problem IV iron infusion tolerated Pain is well controlled 02/15/21: Patient stable Hip pain increased today Pain meds given No issues 02/14/2021: Bowels are moving good IV iron infusion maintained Feels stronger No AF with RVR noted 02/13/2021: Pt doing pretty well Pain is managed with Oxycodone IV iron infusions maintained Normal sinus rhythm on telemetry so with DC telemetry 02/12/2021: Pt doing pretty well Had a bowel movement today Hemoglobin 9.0 IV iron will be restarted Creatinine at 1.41, will monitor that closely A fib is well controlled Review of Systems General: Fatigue Musculoskeletal: leg pain Objective Exam Vital Signs Vital Signs Date Time Temp Pulse Resp B/P (MAP) Pulse Ox O2 Delivery O2 Flow Rate FiO2 02/22/21 15:14 97 Room Air 02/22/21 07:49 36.8 77 14 114/55 (74) 02/18/21 11:57 21 Capillary Refill : General Appearance: No Apparent Distress, WD/WN, Chronically ill HEENT: PERRL/EOMI, Normal ENT Inspection, Pharynx Normal Neck: Full Range of Motion, Normal Inspection, Non Tender, Supple, Carotid Bruit Respiratory: Chest Non Tender, Lungs Clear, Normal Breath Sounds, No Accessory Muscle Use, No Respiratory Distress Cardiovascular: Regular Rate, Rhythm, No Edema, No Gallop, No JVD, No Murmur, Normal Peripheral Pulses Gastrointestinal: Normal Bowel Sounds, No Organomegaly, No Pulsatile Mass, Non Tender, Soft Back: Normal Inspection, No CVA Tenderness, No Vertebral Tenderness Extremity: Normal Capillary Refill, Normal Inspection, Normal Range of Motion, Non Tender, No Calf Tenderness, No Pedal Edema Neurologic/Psychiatric: Alert, Oriented x3, No Motor/Sensory Deficits, inspector II- XII Norm as Tested, Abnormal Gait, Depressed Affect, Motor Weakness (Left leg) Skin: Normal Color, Warm/Dry Lymphatic: No Adenopathy Results/Procedures Lab Patient resulted labs reviewed. FIM Transfers Therapy Code Descriptions/Definitions Functional [place] Measure: 0=Not Assessed/NA 4=Minimal Assistance 1=Total Assistance 5=Supervision or Setup 2=Maximal Assistance 6=Modified [place] 3=Moderate Assistance 7=Complete IndependenceSCALE: Activities may be completed with or without assistive devices. 7-Wsmsijslbt-akbtnwz completes the activity by him/herself with no assistance from a helper. 5-Set-up or Clean-up Assistance-helper sets up or cleans up; patient completes activity. [place] assists only prior to or following the activity. 4-Supervision or Touching Assistance-helper provides verbal cues and/or touching/steadying and/or contact guard assistance as patient completes activity. Assistance may be provided throughout the activity or intermittently. 3-Partial/Moderate Assistance-helper does LESS THAN HALF the effort. [place] lifts, holds or supports trunk or limbs, but provides less than half the effort. 2-Substantial/Maximal Assistance-helper does MORE THAN HALF the effort. [place] lifts or holds trunk or limbs and provides more than half the effort. 3-Xmbresnio-sbputg does ALL the effort. Patient does none of the effort to complete the activity. Or, the assistance of 2 or more helpers is required for the patient to complete the activity. If activity was not attempted, code reason: 7-Patient Refused. 9-Not Applicable-not attempted and the patient did not perform the activity b efore the current illness, exacerbation or injury. 10-Not Attempted due to Environmental Limitations-(lack of equipment, weather restraints, etc.). 88-Not Attempted due to Medical Conditions or Safety Concerns. Roll Left to Right (QC): 6 Sit to Lying (QC): 3 Sit to Stand (QC): 5 Chair/Fvg-fp-Yekgw Xfer(QC): 4 Car Transfer (QC): 4 Gait Training Does the Patient Walk?: Yes Distance: 100', 150' Walk 10 feet (QC): 5 Walk 50 ft with 2 Turns(QC): 5 Walk 150 ft (QC): 5 Walking 10ft/uneven surface-QC: 3 Gait Persons Needed: 1 Gait Assistive Device: FWW Wheelchair Training Does the Pt Use a Wheelchair?: No Distance: 10' Wheel 50 ft with 2 turns (QC): 88 Wheel 150 ft (QC): 88 Type of Wheelchair: Manual Stair Training Stair Training: Handrails/: 2 handrails #of Steps: 1 1 Step (curb) (QC): 3 4 Steps (QC): 3 (B handrails; TTWB maintained; skilled cues for sequencing and technique. ) 12 Steps (QC): 88 Balance Picking up an Object (QC): 4 (in seated position) ADL-Treatment Eating (QC): 6 Oral Hygiene (QC): 6 (IND at sink.) Bathing Location: L Arm, R Arm, L Upper Leg, R Upper Leg, L Lower Leg (including foot), R Lower Leg (including foot), Chest, Abdomen, Buttocks, Perineal Area Shower/Bathe Self (QC): 7 Upper Body Dressing (QC): 5 Lower Body Dressing (QC): 4 (SBA, increased rest time, use of AE (stock preparation supervisor) with education intermittently and training for repetion/ ease.) On/Off Footwear (QC): 2 (max A this date (LOREN hose/ socks)) Toileting Hygiene (QC): 6 Toilet Transfer (QC): 4 (SUP, walker) Assessment/Plan Assessment and Plan Assess & Plan/Chief Complaint Assessment: Severe debility due to left hip fracture Atrial fibrillation with rapid ventricular response requiring transfer to the ICU 02/06/21 and discharged from inpatient rehab since less than 3 days of admission Displaced and comminuted intertrochanteric fracture of the left femur status post uncomplicated repair 02/01/21 status post repair by Dr. BERNAL New onset episode of atrial fibrillation with rapid ventricular rate requiring ICU admission 02/04/21 and Cardizem drip Postop anemia from acute blood loss requiring 4 units of blood in total Severe postop constipation now resolved Plan: Inpatient rehab protocol Pain control Monitor hemoglobin Monitor atrial fibrillation Appreciate cardiology consultation 02/12/2021: Monitor atrial fibrillation with telemetry Supportive care PT and OT per protocol Pain control 02/13/2021: Pain control Rehab protocol Fall risk 02/14/2021: Pain control IV iron infusions Monitor A. fib 02/15/21: Pain meds effective Monitor for AF 02/16/2021: Pain control Monitor closely IV iron infusions 02/17/2021: Maintain IV iron Monitor closely Fall risk Pain control 02/18/2021: Complete IV iron infusions Monitor closely 02/19/2021: Decreased amiodarone dosing and frequency Monitor closely 02/21/2021: Monitor pain Prepare for discharge on Thursday02/22/2021: Continue pain control Intensive therapy Prepare for discharge with modifications at home of entrance way and bathroom (1) Intertrochanteric fracture of left femur Status: Acute (2) Atrial fibrillation with RVR Status: Acute (3) MERVIN (acute kidney injury) Status: Acute (4) Postoperative anemia Status: Acute APRYL KAMINSKI DO Feb 22, 2021 07:47
[2021-02-22 07:49] VITALS: BP 114/55
[2021-02-22] MEDS: guaiFENesin (MUCINEX) 600 MG TAB PO SCH ×2 (08:19→21:12)
[2021-02-22] MEDS: SENNA W/DOCUSATE (SENOKOT S) TABLET PO SCH ×2 (08:19→21:56)
[2021-02-22] MEDS: DOCUSATE SODIUM 100 MG (COLACE) CAP PO SCH ×2 (08:19→21:56)
[2021-02-22] MEDS: PANTOPRAZOLE 40 MG (PROTONIX) TAB PO SCH (08:20)
[2021-02-22] MEDS: AMIODARONE 200 MG (CORDARONE) TAB PO SCH (08:20)
[2021-02-22] MEDS: APIXABAN 5 MG (ELIQUIS) TABLET PO SCH ×2 (08:20→21:12)
[2021-02-22] MEDS: oxyCODONE/APAP 5/325MG (PERCOCET 5) TABLET PO PRN (08:20)
[2021-02-22] MEDS: meTOprolol TARTRATE 25 MG (LOPRESSOR) TABLET PO SCH (08:21)
[2021-02-22] MEDS: IRON SUCROSE 200 MG/10 ML (VENOFER) VIAL IV SCH (08:25)
--- NOTE | 2021-02-22 10:11 | Physical Therapy Daily Note ---
PT Daily Note-Current Subjective Pt agreeable to PT. Reports increased pain left hip this is limiting mobility today. Pain Numeric Pain Scale: 8 Location: Left Location Body Site: Hip Pain Description: Ache, Dull Comment: constant; took pain meds at start of treatment Mental Status Patient Orientation: Person, Place, Time, Situation Transfers SCALE: Activities may be completed with or without assistive devices. 3-Timpsarfcn-lpsygog completes the activity by him/herself with no assistance from a helper. 5-Set-up or Clean-up Assistance-helper sets up or cleans up; patient completes activity. [place] assists only prior to or following the activity. 4-Supervision or Touching Assistance-helper provides verbal cues and/or touching/steadying and/or contact guard assistance as patient completes activity. Assistance may be provided throughout the activity or intermittently. 3-Partial/Moderate Assistance-helper does LESS THAN HALF the effort. [place] lifts, holds or supports trunk or limbs, but provides less than half the effort. 2-Substantial/Maximal Assistance-helper does MORE THAN HALF the effort. [place] lifts or holds trunk or limbs and provides more than half the effort. 1-Qcxvcxyfd-zjdtug does ALL the effort. Patient does none of the effort to complete the activity. Or, the assistance of 2 or more helpers is required for the patient to complete the activity. If activity was not attempted, code reason: 7-Patient Refused. 9-Not Applicable-not attempted and the patient did not perform the activity before the current illness, exacerbation or injury. 10-Not Attempted due to Environmental Limitations-(lack of equipment, weather restraints, etc.). 88-Not Attempted due to Medical Conditions or Safety Concerns. Sit to stand multiple reps this date with SBA; pt with good consistency of hand placement. Sit to stand from multiple surfaces. Weight Bearing Right Lower Extremity: Right Full Weight Bearing Left Lower Extremity: Left Touch Toe Bearing Gait Training Gait Assistive Device: FWW Gt x 50 ft x 5 reps with SBA; TTWB left LE. Outdoor ambulation on sidewalk surface with SB-CGA. Exercises Seated Therapy Exercises: Ankle pumps, Long arc quads, Glut set Seated Reps: 15 Assessment Current Status: Fair Progress LImited by pain today, but participatory and cooperative. PT Contact [employer] Goals Retirement Goals PT Contact [employer] Goals Time Frame: Mar 09, 2021 Roll Left & Right (QC): 5 Sit to Lying (QC): 5 Lying-Sitting on Side/Bed(QC): 5 Sit to Stand (QC): 5 Chair/Qar-bk-Ddnro Xfer(QC): 5 Toilet Transfer (QC): 5 Car Transfer (QC): 5 Does the Patient Walk: Yes Walk 10 feet (QC): 5 Walk 50ft with 2 Turns (QC): 5 Walk 150 ft (QC): 5 Walking 10ft on Uneven Surface: 5 1 Step (curb) (QC): 5 4 Steps (QC): 5 12 Steps (QC): 88 Picking up an Object (QC): 5 Wheel 50 feet with 2 turns (QC: 9 Type: N/A Wheel 150 feet: 9 Type: N/A PT Plan Problem List Problem List: Activity Tolerance, Functional Strength, Safety, Balance, Gait, Transfer, Bed Mobility Treatment/Plan Treatment Plan: Continue Plan of Care Treatment Plan: Bed Mobility, Concurrent Therapy, Education, Functional Activity Molly, Functional Strength, Group Therapy, Gait, Safety, Therapeutic Exercise, Transfers Treatment Duration: Mar 09, 2021 Frequency: At least 5 of 7 days/Wk (IRF) Estimated Hrs Per Day: 1.5 hours per day Patient and/or Family Agrees t: Yes Safety Risks/Education Patient Education: Gait Training Teaching Recipient: Patient Teaching Methods: Demonstration, Discussion Response to Teaching: Reinforcement Needed Time/GCodes Time In: 815 Time Out: 915 Total Billed Treatment Time: 60 Total Billed Treatment visit EX 15 FA 45 LOREN QUIROZ PT Feb 22, 2021 10:11
--- NOTE | 2021-02-22 10:47 | Occupational Ther Daily Note ---
OT Current Status-Daily Note Subjective Pt AxO, pain decreased. Pt expresses agreement to tx. Mental Status/Objective Patient Orientation: Person, Place, Situation, Normal For Age ADL-Treatment Therapy Code Descriptions/Definitions Functional [place] Measure: 0=Not Assessed/NA 4=Minimal Assistance 1=Total Assistance 5=Supervision or Setup 2=Maximal Assistance 6=Modified [place] 3=Moderate Assistance 7=Complete IndependenceSCALE: Activities may be completed with or without assistive devices. 8-Xtrggcvvez-vpufhuu completes the activity by him/herself with no assistance from a helper. 5-Set-up or Clean-up Assistance-helper sets up or cleans up; patient completes activity. [place] assists only prior to or following the activity. 4-Supervision or Touching Assistance-helper provides verbal cues and/or touching/steadying and/or contact guard assistance as patient completes activity. Assistance may be provided throughout the activity or intermittently. 3-Partial/Moderate Assistance-helper does LESS THAN HALF the effort. [place] lifts, holds or supports trunk or limbs, but provides less than half the effort. 2-Substantial/Maximal Assistance-helper does MORE THAN HALF the effort. [place] lifts or holds trunk or limbs and provides more than half the effort. 8-Bbkndbogv-ffjyuo does ALL the effort. Patient does none of the effort to complete the activity. Or, the assistance of 2 or more helpers is required for the patient to complete the activity. If activity was not attempted, code reason: 7-Patient Refused. 9-Not Applicable-not attempted and the patient did not perform the activity before the current illness, exacerbation or injury. 10-Not Attempted due to Environmental Limitations-(lack of equipment, weather restraints, etc.). 88-Not Attempted due to Medical Conditions or Safety Concerns. Eating (QC): 6 Oral Hygiene (QC): 6 Shower/Bathe Self (QC): 4 (SUP) Upper Body Dressing (QC): 6 Lower Body Dressing (QC): 4 (SBA, use of AE) On/Off Footwear: 6 (IND with sock aide L, IND R) Toileting Hygiene (QC): 6 Toilet Transfer (QC): 4 (SUP) Other Treatment Sit to stand SBA. Toileting and showering as outlined. One instance of LOB, able to self right. Pt dresses in shower, returns to recliner and LOREN hose donned/ ADAMARIS wraps on top with nursing approval due to increase of 10 sec pitting dorsum of foot. Pt ambulates through halls with one RB. Returns to room with all needs met, call light in reach. Education OT Patient Education: Correct positioning, Exercise program, Modified ADL techniques, Progress toward Goal/Update tx plan, Purpose of tx/functional activities, Safety issues, Transfer techniques, Use of adapted equipment Teaching Recipient: Patient Teaching Methods: Demonstration, Discussion Response to Teaching: Verbalize Understanding, Return Demonstration OT Short Term Goals Short Term Goals Time Frame: Feb 18, 2021 Eatin Oral hygiene: 5 Toileting hygiene: 4 Shower/bathe self: 3 Upper body dressin Lower body dressin Putting on/taking off footwear: 4 OT Long-Term Goals Actuary Goals Time Frame: Feb 25, 2021 Eating (QC): 6 Oral Hygiene (QC): 6 Toileting Hygiene (QC): 6 Shower/Bathe Self (QC): 4 Upper Body Dressing (QC): 5 Lower Body Dressing (QC): 4 On/Off Footwear (QC): 6 Additional Goals: 1-Demonstrate ADL Tasks, 2-Verbalize Understanding, 3-Im proveStrength/Molly 1=Demonstrate adherence to instructed precautions during ADL tasks. 2=Patient will verbalize/demonstrate understanding of assistive devices/modifications for ADL. 3=Patient will improve strength/tolerance for activity to enable patient to perform ADL's. OT Education/Plan Problem List/Assessment Assessment: Decreased Activ Tolerance, Decreased UE Strength, Dependent Transfers, Edema, Impaired Funct Balance, Impaired I ADL's, Impaired Self-Care Skills Discharge Recommendations Plan/Recommendations: Continue POC Therapy Discharge Recommendati: Home & Family, Post Acute OT Equpiment Recommendations-D/C: Extended Bath Bench, Rails on Tub/Shower, Hip Kit Treatment Plan/Plan of Care Treatment,Training & Education: Yes Patient would benefit from OT for education, treatment and training to promote independence in ADL's, mobility, safety and/or upper extremity function for ADL's. Plan of Care: ADL Retraining, Functional Mobility, UE Funct Exercise/Act Treatment Duration: Feb 25, 2021 Frequency: At least 5 of 7 days/Wk (IRF) Estimated Hrs Per Day: 1.5 hours per day Agreement: Yes Rehab Potential: Good Time/GCodes Start Time: 09:45 Stop Time: 10:45 Total Time Billed (hr/min): 60 Billed Treatment Time 1, ADL 3, EX (60) MARIE THURSTON OTR Feb 22, 2021 10:47
--- NOTE | 2021-02-22 13:09 | Cardiology Progress Note ---
Subjective Date Seen by Provider: Feb 22, 2021 Time Seen by Provider: 13:08 Subjective/Events-last exam Patient was seen at bedside, having some hip pain. No chest pain was noted Review of Systems General: No Chills, No Night Sweats; Fatigue; No Malaise, No Appetite, No Other HEENT: No Head Aches, No Visual Changes, No Eye Pain, No Ear Pain, No Dysphasia, No Sinus Congestion, No Post Nasal Drip, No Sore Throat, No Other Pulmonary: No Dyspnea, No Cough, No Pleuritic Chest Pain, No Other Cardiovascular: No: Chest Pain, Palpitations, Orthopnea, Paroxysmal Noc. Dyspnea, Edema, Lt Headedness, Other Objective-Cardiology Exam Last Set of Vital Signs Vital Signs 02/18/21 02/22/21 11:57 07:49 Temp 36.8 Pulse 77 Resp 14 B/P (MAP) 114/55 (74) Pulse Ox 93 O2 Delivery Room Air FiO2 21 General: Alert, Oriented X3, Cooperative HEENT: Atraumatic, PERRLA Neck: Supple, No JVD, No Thyromegaly Lungs: Clear to Auscultation, Normal Air Movement Heart: Regular Rate, Normal S1, Normal S2, No Murmurs Abdomen: Normal Bowel Sounds, Soft, No Tenderness, No Hepatosplenomegaly, No Masses Extremities: No Clubbing, No Cyanosis, No Edema, Normal Pulses, No Tenderness/Swelling Skin: No Rashes, No Breakdown, No Significant Lesion Neuro: Normal Gait, Normal Speech Psych/Mental Status: Mental Status NL, Mood NL A/P-Cardiology Admission Diagnosis PAF Anemia L hip fx Renal insufficiency Assessment/Plan Paroxysmal atrial fibrillation, maintained on Amiodarone 200mg, Eliqius 5mg BID, I am stopping metoprolol due to bradycardia. Continue to monitor [id number] score of 2, yearly risk of stroke without oral anticoagulation is 2.2%. Maintained on Eliquis Anemia, continue to monitor H/H, management per medical services. Left hip fracture, underwent surgical repair with Dr. Morrison on February 01, 2021, receiving physical therapy Renal insufficiency, monitor renal function. JENNIFER RIVER MD Feb 22, 2021 1:09 pm
[2021-02-22] MEDS: HYDROcodone/APAP 5 MG/325 MG (LORTAB) TAB PO PRN ×2 (14:03→21:12)
--- NOTE | 2021-02-22 14:20 | Therapy Group Daily Note ---
Therapy Daily Group Note Patient Education Topic Home Safety Exercises LE Seated Exercise, UE Exercise Session Ratio (pt:therapist): 3:1 Goal of Session: Education on ARU Expectations, Home Safety Strategies, UE/LE Strengthing Goal Met for this Session: Yes Pt Benefit of Group: Contributions to Others, F/U Use of Strategies @Home, Increased Functional Safety, Increased Functional Strength, Improved Cognition, Recognition of Peers, Socialization Other/Notes Pt ambulated using FWW to [facility] area for OT/PT group. Group consisted of introductions(name, place living, what happened to your first car), socialization, B UE/LE seated exercises, fine motor task with visual scanning/perception and environmental safety education. Pt introduced self appropriately and actively listened to peers. Pt was able to complete B UE/LE seated exercises without difficulty. Pt was able to manipulate small objects, scan for correct match then place in designated area without difficulty. Pt acknowledged understanding of educational topic by own experience and strategies. After session, pt sitting in recliner with call light/phone in reach. Nrsg in room to administer pain meds. All needs met. Start Time: 13:00 Stop Time: 14:00 Total Billed Treatment Time: 60 Total Billed Treatment 1-LOREN WILSON Feb 22, 2021 14:20
[2021-02-22] MEDS: polyethylene glycoL POWDER 17 GM (MIRALAX) PACK PO SCH (19:31)
[2021-02-22 20:00] VITALS: BP 94/53
[2021-02-23] MEDS: HYDROcodone/APAP 5 MG/325 MG (LORTAB) TAB PO PRN ×3 (06:56→21:30)
[2021-02-23] MEDS: RT-ALBUTEROL/IPRATROPIUM 3 ML (DUONEB) VIAL INH SCH ×3 (07:07→21:07)
[2021-02-23 07:10] VITALS: BP 109/56
[2021-02-23] MEDS: guaiFENesin (MUCINEX) 600 MG TAB PO SCH ×2 (07:50→20:28)
[2021-02-23] MEDS: APIXABAN 5 MG (ELIQUIS) TABLET PO SCH ×2 (07:50→20:28)
[2021-02-23] MEDS: AMIODARONE 200 MG (CORDARONE) TAB PO SCH (07:50)
[2021-02-23] MEDS: PANTOPRAZOLE 40 MG (PROTONIX) TAB PO SCH (07:50)
[2021-02-23] MEDS: SENNA W/DOCUSATE (SENOKOT S) TABLET PO SCH ×2 (07:51→20:28)
[2021-02-23] MEDS: DOCUSATE SODIUM 100 MG (COLACE) CAP PO SCH ×2 (07:51→20:28)
--- NOTE | 2021-02-23 08:00 | PM&R Progress Note ---
Subjective HPI/CC On Admission Date Seen by Provider: Feb 23, 2021 Time Seen by Provider: 12:45 Subjective/Events-last exam 02/23/2021: This visit is via video chat due to Covid related restriction for this provider Patient having a good day May need to go skilled care prior to getting his house arranged for discharge on Thursday per his stepsons Sarmad and Bill Bowels moved today Edema of the left leg is improved with Gurinder wraps over LOREN hose Decreasing pain medication at his preference 02/22/2021: This visit is via video chat due to Covid related restriction for this provider Patient doing pretty well Had a lot of pain this morning He does not feel like he needs a change in his pain medication Had held metoprolol for the past 2 nights due to bradycardia but heart rate now is in 70s Dr. Roque will be updated Bowels are moving okay 02/21/2021: This visit is via video chat due to Covid related restriction for this provider Patient doing really well Has no major issues today Bowels moved yesterday Decreased pain noted Working on the entrance and shower at his house Stool softeners are maintained Discharge plan for Thursday [facility] is his pharmacy 02/19/2021: Patient feels really good Less pain today No A. fib with RVR Bowels are moving well Amiodarone decreased to 200 mg daily from 400 mg twice daily Blood pressure 105/66 02/18/2021: Patient doing pretty well Much improved Creatinine 1.73 and when he was admitted it was 1.4 indicating chronic kidney disease Hemoglobin 9.5 02/17/2021: Patient not having a good day Pain is an issue Seems to be very tired today Has worked very hard this week Dr. Roque will check labs in the morning 02/16/2021: Patient feeling pretty good trying to get used to having a heart problem IV iron infusion tolerated Pain is well controlled 02/15/21: Patient stable Hip pain increased today Pain meds given No issues 02/14/2021: Bowels are moving good IV iron infusion maintained Feels stronger No AF with RVR noted 02/13/2021: Pt doing pretty well Pain is managed with Oxycodone IV iron infusions maintained Normal sinus rhythm on telemetry so with DC telemetry 02/12/2021: Pt doing pretty well Had a bowel movement today Hemoglobin 9.0 IV iron will be restarted Creatinine at 1.41, will monitor that closely A fib is well controlled Review of Systems General: Fatigue, Malaise Musculoskeletal: leg pain Neurological: Weakness Objective Exam Vital Signs Vital Signs Date Time Temp Pulse Resp B/P (MAP) Pulse Ox O2 Delivery O2 Flow Rate FiO2 02/23/21 14:08 93 Room Air 02/23/21 07:10 36.6 61 18 109/56 (73) 02/18/21 11:57 21 Capillary Refill : General Appearance: No Apparent Distress, WD/WN, Chronically ill HEENT: PERRL/EOMI, Normal ENT Inspection, Pharynx Normal Neck: Full Range of Motion, Normal Inspection, Non Tender, Supple, Carotid Bruit Respiratory: Chest Non Tender, Lungs Clear, Normal Breath Sounds, No Accessory Muscle Use, No Respiratory Distress Cardiovascular: Regular Rate, Rhythm, No Edema, No Gallop, No JVD, No Murmur, Normal Peripheral Pulses Gastrointestinal: Normal Bowel Sounds, No Organomegaly, No Pulsatile Mass, Non Tender, Soft Back: Normal Inspection, No CVA Tenderness, No Vertebral Tenderness Extremity: Normal Capillary Refill, Normal Inspection, Normal Range of Motion, Non Tender, No Calf Tenderness, No Pedal Edema Neurologic/Psychiatric: Alert, Oriented x3, No Motor/Sensory Deficits, communication equipment repairer II- XII Norm as Tested, Abnormal Gait, Depressed Affect, Motor Weakness Skin: Normal Color, Warm/Dry Lymphatic: No Adenopathy Results/Procedures Lab Patient resulted labs reviewed. FIM Transfers Therapy Code Descriptions/Definitions Functional [place] Measure: 0=Not Assessed/NA 4=Minimal Assistance 1=Total Assistance 5=Supervision or Setup 2=Maximal Assistance 6=Modified [place] 3=Moderate Assistance 7=Complete IndependenceSCALE: Activities may be completed with or without assistive devices. 2-Pkpjnhathr-epofacd completes the activity by him/herself with no assistance from a helper. 5-Set-up or Clean-up Assistance-helper sets up or cleans up; patient completes activity. [place] assists only prior to or following the activity. 4-Supervision or Touching Assistance-helper provides verbal cues and/or touchi ng/steadying and/or contact guard assistance as patient completes activity. Assistance may be provided throughout the activity or intermittently. 3-Partial/Moderate Assistance-helper does LESS THAN HALF the effort. [place] lifts, holds or supports trunk or limbs, but provides less than half the effort. 2-Substantial/Maximal Assistance-helper does MORE THAN HALF the effort. [place] lifts or holds trunk or limbs and provides more than half the effort. 4-Tixqzdufu-iwsiuc does ALL the effort. Patient does none of the effort to complete the activity. Or, the assistance of 2 or more helpers is required for the patient to complete the activity. If activity was not attempted, code reason: 7-Patient Refused. 9-Not Applicable-not attempted and the patient did not perform the activity before the current illness, exacerbation or injury. 10-Not Attempted due to Environmental Limitations-(lack of equipment, weather restraints, etc.). 88-Not Attempted due to Medical Conditions or Safety Concerns. Roll Left to Right (QC): 6 Sit to Lying (QC): 3 Sit to Stand (QC): 5 Chair/Zcw-ld-Jqepz Xfer(QC): 4 Car Transfer (QC): 4 Gait Training Does the Patient Walk?: Yes Distance: 100', 150' Walk 10 feet (QC): 5 Walk 50 ft with 2 Turns(QC): 5 Walk 150 ft (QC): 5 Walking 10ft/uneven surface-QC: 3 Gait Persons Needed: 1 Gait Assistive Device: FWW Wheelchair Training Does the Pt Use a Wheelchair?: No Distance: 10' Wheel 50 ft with 2 turns (QC): 88 Wheel 150 ft (QC): 88 Type of Wheelchair: Manual Stair Training Stair Training: Handrails/: 2 handrails #of Steps: 1 1 Step (curb) (QC): 3 4 Steps (QC): 3 (B handrails; TTWB maintained; skilled cues for sequencing and technique. ) 12 Steps (QC): 88 Balance Picking up an Object (QC): 4 (in seated position) ADL-Treatment Eating (QC): 6 Oral Hygiene (QC): 6 Bathing Location: L Arm, R Arm, L Upper Leg, R Upper Leg, L Lower Leg (including foot), R Lower Leg (including foot), Chest, Abdomen, Buttocks, Perineal Area Shower/Bathe Self (QC): 4 (SUP) Upper Body Dressing (QC): 6 Lower Body Dressing (QC): 4 (SBA, use of AE) On/Off Footwear (QC): 6 (IND with sock aide L, IND R) Toileting Hygiene (QC): 6 Toilet Transfer (QC): 4 (SUP) Assessment/Plan Assessment and Plan Assess & Plan/Chief Complaint Assessment: Severe debility due to left hip fracture Atrial fibrillation with rapid ventricular response requiring transfer to the ICU 02/06/21 and discharged from inpatient rehab since less than 3 days of admission Displaced and comminuted intertrochanteric fracture of the left femur status post uncomplicated repair 02/01/21 status post repair by Dr. BERNAL New onset episode of atrial fibrillation with rapid ventricular rate requiring ICU admission 02/04/21 and Cardizem drip Postop anemia from acute blood loss requiring 4 units of blood in total Severe postop constipation now resolved Plan: Inpatient rehab protocol Pain control Monitor hemoglobin Monitor atrial fibrillation Appreciate cardiology consultation 02/12/2021: Monitor atrial fibrillation with telemetry Supportive care PT and OT per protocol Pain control 02/13/2021: Pain control Rehab protocol Fall risk 02/14/2021: Pain control IV iron infusions Monitor A. fib 02/15/21: Pain meds effective Monitor for AF 02/16/2021: Pain control Monitor closely IV iron infusions 02/17/2021: Maintain IV iron Monitor closely Fall risk Pain control 02/18/2021: Complete IV iron infusions Monitor closely 02/19/2021: Decreased amiodarone dosing and frequency Monitor closely 02/21/2021: Monitor pain Prepare for discharge on Thursday02/22/2021: Continue pain control Intensive therapy Prepare for discharge with modifications at home of entrance way and bathroom 02/23/2021: May be need skilled care for 2 weeks while house is being prepared Decreasing pain medication (1) Intertrochanteric fracture of left femur Status: Acute (2) Atrial fibrillation with RVR Status: Acute (3) MERVIN (acute kidney injury) Status: Acute (4) Postoperative anemia Status: Acute APRYL KAMINSKI DO Feb 23, 2021 08:00
--- NOTE | 2021-02-23 10:09 | Physical Therapy Daily Note ---
PT Daily Note-Current Subjective Pt sitting in recliner upon arrival. Pt agrees to PT for ambulation. Pain Numeric Pain Scale: 6 Location: Left Location Body Site: Hip Pain Description: Ache Mental Status Patient Orientation: Person, Place, Time, Situation Transfers SCALE: Activities may be completed with or without assistive devices. 7-Rjvtknysdn-qthsaxt completes the activity by him/herself with no assistance from a helper. 5-Set-up or Clean-up Assistance-helper sets up or cleans up; patient completes activity. [place] assists only prior to or following the activity. 4-Supervision or Touching Assistance-helper provides verbal cues and/or touching/steadying and/or contact guard assistance as patient completes activity. Assistance may be provided throughout the activity or intermittently. 3-Partial/Moderate Assistance-helper does LESS THAN HALF the effort. [place] lifts, holds or supports trunk or limbs, but provides less than half the effort. 2-Substantial/Maximal Assistance-helper does MORE THAN HALF the effort. [place] lifts or holds trunk or limbs and provides more than half the effort. 6-Njqztauks-lxttjo does ALL the effort. Patient does none of the effort to complete the activity. Or, the assistance of 2 or more helpers is required for the patient to complete the activity. If activity was not attempted, code reason: 7-Patient Refused. 9-Not Applicable-not attempted and the patient did not perform the activity before the current illness, exacerbation or injury. 10-Not Attempted due to Environmental Limitations-(lack of equipment, weather restraints, etc.). 88-Not Attempted due to Medical Conditions or Safety Concerns. Sit to Stand (QC): 5 Weight Bearing Right Lower Extremity: Right Full Weight Bearing Left Lower Extremity: Left Touch Toe Bearing Gait Training Does the Patient Walk?: Yes Distance: 450' Walk 10 feet (QC): 5 Walk 50 ft with 2 Turns(QC): 5 Walk 150 ft (QC): 5 Gait Persons Needed: 1 Gait Assistive Device: FWW Pt adheres and still concerned with WB status. Pt takes RB during amb. Wheelchair Training Does the Pt Use a Wheelchair?: No Treatments Declines needing BR, TF to standing. Amb in hallway with 2 short RB as needed. Pt returns to room to rest at end of tx. All needs met, call light in hand. Assessment Current Status: Good Progress Pt still reports pain in L hip during tx. Pain had been given prior to tx and ice is used post tx. PT Residential Goals Residential Goals PT Extension Service Supervisor Goals Time Frame: Mar 09, 2021 Roll Left & Right (QC): 5 Sit to Lying (QC): 5 Lying-Sitting on Side/Bed(QC): 5 Sit to Stand (QC): 5 Chair/Ocm-cf-Mloew Xfer(QC): 5 Toilet Transfer (QC): 5 Car Transfer (QC): 5 Does the Patient Walk: Yes Walk 10 feet (QC): 5 Walk 50ft with 2 Turns (QC): 5 Walk 150 ft (QC): 5 Walking 10ft on Uneven Surface: 5 1 Step (curb) (QC): 5 4 Steps (QC): 5 12 Steps (QC): 88 Picking up an Object (QC): 5 Wheel 50 feet with 2 turns (QC: 9 Type: N/A Wheel 150 feet: 9 Type: N/A PT Plan Problem List Problem List: Activity Tolerance Treatment/Plan Treatment Plan: Continue Plan of Care Treatment Plan: Bed Mobility, Concurrent Therapy, Education, Functional Activity Molly, Functional Strength, Group Therapy, Gait, Safety, Therapeutic Exercise, Transfers Treatment Duration: Mar 09, 2021 Frequency: At least 5 of 7 days/Wk (IRF) Estimated Hrs Per Day: 1.5 hours per day Patient and/or Family Agrees t: Yes Safety Risks/Education Patient Education: Gait Training, Correct Positioning Teaching Recipient: Patient Teaching Methods: Discussion Response to Teaching: Verbalize Understanding Time/GCodes Time In: 820 Time Out: 850 Total Billed Treatment Time: 30 Total Billed Treatment 1, GT (20m) & FA (10m) ROOSEVELT ESTRADA PTA Feb 23, 2021 10:09
--- NOTE | 2021-02-23 11:26 | Cardiology Progress Note ---
Subjective Date Seen by Provider: Feb 23, 2021 Time Seen by Provider: 11:25 Subjective/Events-last exam Patient was seen at bedside, sitting comfortably, feeling better, pain is s omewhat better Review of Systems General: No Chills, No Night Sweats; Fatigue; No Malaise, No Appetite, No Other HEENT: No Head Aches, No Visual Changes, No Eye Pain, No Ear Pain, No Dysphasia, No Sinus Congestion, No Post Nasal Drip, No Sore Throat, No Other Pulmonary: No Dyspnea, No Cough, No Pleuritic Chest Pain, No Other Cardiovascular: No: Chest Pain, Palpitations, Orthopnea, Paroxysmal Noc. Dyspnea, Edema, Lt Headedness, Other Objective-Cardiology Exam Last Set of Vital Signs Vital Signs 02/18/21 02/23/21 02/23/21 11:57 07:10 08:59 Temp 36.6 Pulse 61 Resp 18 B/P (MAP) 109/56 (73) Pulse Ox 94 O2 Delivery Room Air FiO2 21 General: Alert, Oriented X3, Cooperative HEENT: Atraumatic, PERRLA Neck: Supple, No JVD, No Thyromegaly Lungs: Clear to Auscultation, Normal Air Movement Heart: Regular Rate, Normal S1, Normal S2, No Murmurs Abdomen: Normal Bowel Sounds, Soft, No Tenderness, No Hepatosplenomegaly, No Masses Extremities: No Clubbing, No Cyanosis, No Edema, Normal Pulses, No Tenderness/Swelling Skin: No Rashes, No Breakdown, No Significant Lesion Neuro: Normal Speech Psych/Mental Status: Mental Status NL, Mood NL A/P-Cardiology Admission Diagnosis PAF Anemia L hip fx Renal insufficiency Assessment/Plan Paroxysmal atrial fibrillation, maintained on Amiodarone 200mg, Eliqius 5mg BID, metoprolol was discontinued on February 22, 2021. Continue to monitor Borderline hypotension, slightly better today. Continue to monitor blood pressure [id number] score of 2, yearly risk of stroke without oral anticoagulation is 2.2%. Maintained on Eliquis Anemia, continue to monitor H/H, management per medical services. Left hip fracture, underwent surgical repair with Dr. Morrison on February 01, 2021, receiving physical therapy Renal insufficiency, monitor renal function. JENNIFER RIVER MD Feb 23, 2021 11:26
[2021-02-23 20:00] VITALS: BP 118/58
[2021-02-23] MEDS: polyethylene glycoL POWDER 17 GM (MIRALAX) PACK PO SCH (20:28)
[2021-02-24 04:51] LABS: HEMATOCRIT 30 % (40-54); HEMOGLOBIN 9.7 g/dL (13.3-17.7); MEAN CORPUSCULAR HEMOGLOBIN 33 pg (25-34); MEAN CORPUSCULAR HGB CONC 32 g/dL (32-36); MEAN CORPUSCULAR VOLUME 103 fL (80-99); MEAN PLATELET VOLUME 9.5 fL (9.0-12.2); PLATELET COUNT 278 10^3/uL (130-400); WHITE BLOOD COUNT 7.5 10^3/uL (4.3-11.0)
[2021-02-24 05:02] LABS: POTASSIUM 4.1 MMOL/L (3.6-5.0)
[2021-02-24 05:03] LABS: CALCIUM 8.4 MG/DL (8.5-10.1)
[2021-02-24 05:08] LABS: CREATININE SERUM 1.59 MG/DL (0.60-1.30)
[2021-02-24] MEDS: RT-ALBUTEROL/IPRATROPIUM 3 ML (DUONEB) VIAL INH SCH ×3 (06:48→20:12)
[2021-02-24 07:10] VITALS: BP 111/57
--- NOTE | 2021-02-24 07:41 | PM&R Progress Note ---
Subjective HPI/CC On Admission Date Seen by Provider: Feb 24, 2021 Time Seen by Provider: 12:45 Subjective/Events-last exam 02/24/2021: This visit is via video chat due to Covid related restriction for this provider Patient doing pretty well today Still cannot understand why he cannot take naproxen so I did explain that to him being on a blood thinner and he understands now Bowels are moving well Oxycodone is used only twice daily Going to [facility] at discharge His stepsons want an x-ray done of his hip so will defer to Dr. Bernal 02/23/2021: This visit is via video chat due to Covid related restriction for this provider Patient having a good day May need to go skilled care prior to getting his house arranged for discharge on Thursday per his stepsons Sarmad and Bill Bowels moved today Edema of the left leg is improved with Gurinder wraps over LOREN hose Decreasing pain medication at his preference 02/22/2021: This visit is via video chat due to Covid related restriction for this provider Patient doing pretty well Had a lot of pain this morning He does not feel like he needs a change in his pain medication Had held metoprolol for the past 2 nights due to bradycardia but heart rate now is in 70s Dr. Roque will be updated Bowels are moving okay 02/21/2021: This visit is via video chat due to Covid related restriction for this provider Patient doing really well Has no major issues today Bowels moved yesterday Decreased pain noted Working on the entrance and shower at his house Stool softeners are maintained Discharge plan for Thursday [facility] is his pharmacy 02/19/2021: Patient feels really good Less pain today No A. fib with RVR Bowels are moving well Amiodarone decreased to 200 mg daily from 400 mg twice daily Blood pressure 105/66 02/18/2021: Patient doing pretty well Much improved Creatinine 1.73 and when he was admitted it was 1.4 indicating chronic kidney disease Hemoglobin 9.5 02/17/2021: Patient not having a good day Pain is an issue Seems to be very tired today Has worked very hard this week Dr. Roque will check labs in the morning 02/16/2021: Patient feeling pretty good trying to get used to having a heart problem IV iron infusion tolerated Pain is well controlled 02/15/21: Patient stable Hip pain increased today Pain meds given No issues 02/14/2021: Bowels are moving good IV iron infusion maintained Feels stronger No AF with RVR noted 02/13/2021: Pt doing pretty well Pain is managed with Oxycodone IV iron infusions maintained Normal sinus rhythm on telemetry so with DC telemetry 02/12/2021: Pt doing pretty well Had a bowel movement today Hemoglobin 9.0 IV iron will be restarted Creatinine at 1.41, will monitor that closely A fib is well controlled Review of Systems General: Fatigue Musculoskeletal: leg pain Neurological: Weakness Objective Exam Vital Signs Vital Signs Date Time Temp Pulse Resp B/P (MAP) Pulse Ox O2 Delivery O2 Flow Rate FiO2 02/24/21 20:12 95 Room Air 02/24/21 07:10 36.1 63 20 111/57 (75) 02/18/21 11:57 21 Capillary Refill : General Appearance: No Apparent Distress, WD/WN, Chronically ill HEENT: PERRL/EOMI, Normal ENT Inspection, Pharynx Normal Neck: Full Range of Motion, Normal Inspection, Non Tender, Supple, Carotid Bruit Respiratory: Chest Non Tender, Lungs Clear, Normal Breath Sounds, No Accessory Muscle Use, No Respiratory Distress Cardiovascular: Regular Rate, Rhythm, No Edema, No Gallop, No JVD, No Murmur, Normal Peripheral Pulses Gastrointestinal: Normal Bowel Sounds, No Organomegaly, No Pulsatile Mass, Non Tender, Soft Back: Normal Inspection, No CVA Tenderness, No Vertebral Tenderness Extremity: Normal Capillary Refill, Normal Inspection, Normal Range of Motion, Non Tender, No Calf Tenderness, No Pedal Edema Neurologic/Psychiatric: Alert, Oriented x3, No Motor/Sensory Deficits, 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 FIM Transfers Therapy Code Descriptions/Definitions Functional [place] Measure: 0=Not Assessed/NA 4=Minimal Assistance 1=Total Assistance 5=Supervision or Setup 2=Maximal Assistance 6=Modified [place] 3=Moderate Assistance 7=Complete IndependenceSCALE: Activities may be completed with or without assistive devices. 0-Ejkeepfvdv-winkksk completes the activity by him/herself with no assistance from a helper. 5-Set-up or Clean-up Assistance-helper sets up or cleans up; patient completes activity. [place] assists only prior to or following the activity. 4-Supervision or Touching Assistance-helper provides verbal cues and/or touch ing/steadying and/or contact guard assistance as patient completes activity. Assistance may be provided throughout the activity or intermittently. 3-Partial/Moderate Assistance-helper does LESS THAN HALF the effort. [place] lifts, holds or supports trunk or limbs, but provides less than half the effort. 2-Substantial/Maximal Assistance-helper does MORE THAN HALF the effort. [place] lifts or holds trunk or limbs and provides more than half the effort. 1-Huouxdaxn-rxiykt does ALL the effort. Patient does none of the effort to complete the activity. Or, the assistance of 2 or more helpers is required for the patient to complete the activity. If activity was not attempted, code reason: 7-Patient Refused. 9-Not Applicable-not attempted and the patient did not perform the activity bef ore the current illness, exacerbation or injury. 10-Not Attempted due to Environmental Limitations-(lack of equipment, weather restraints, etc.). 88-Not Attempted due to Medical Conditions or Safety Concerns. Roll Left to Right (QC): 6 Sit to Lying (QC): 3 Sit to Stand (QC): 5 Chair/Cyj-ou-Uuqxe Xfer(QC): 4 Car Transfer (QC): 4 Gait Training Does the Patient Walk?: Yes Distance: 450' Walk 10 feet (QC): 5 Walk 50 ft with 2 Turns(QC): 5 Walk 150 ft (QC): 5 Walking 10ft/uneven surface-QC: 3 Gait Persons Needed: 1 Gait Assistive Device: FWW Wheelchair Training Does the Pt Use a Wheelchair?: No Distance: 10' Wheel 50 ft with 2 turns (QC): 88 Wheel 150 ft (QC): 88 Type of Wheelchair: Manual Stair Training Stair Training: Handrails/: 2 handrails #of Steps: 1 1 Step (curb) (QC): 3 4 Steps (QC): 3 (B handrails; TTWB maintained; skilled cues for sequencing and technique. ) 12 Steps (QC): 88 Balance Picking up an Object (QC): 4 (in seated position) ADL-Treatment Eating (QC): 6 Oral Hygiene (QC): 6 Bathing Location: L Arm, R Arm, L Upper Leg, R Upper Leg, L Lower Leg (including foot), R Lower Leg (including foot), Chest, Abdomen, Buttocks, Perineal Area Shower/Bathe Self (QC): 4 (SUP) Upper Body Dressing (QC): 6 Lower Body Dressing (QC): 4 (SBA, use of AE) On/Off Footwear (QC): 6 (IND with sock aide L, IND R) Toileting Hygiene (QC): 6 Toilet Transfer (QC): 4 (SUP) Assessment/Plan Assessment and Plan Assess & Plan/Chief Complaint Assessment: Severe debility due to left hip fracture Atrial fibrillation with rapid ventricular response requiring transfer to the ICU 02/06/21 and discharged from inpatient rehab since less than 3 days of admission Displaced and comminuted intertrochanteric fracture of the left femur status post uncomplicated repair 02/01/21 status post repair by Dr. BERNAL New onset episode of atrial fibrillation with rapid ventricular rate requiring ICU admission 02/04/21 and Cardizem drip Postop anemia from acute blood loss requiring 4 units of blood in total Severe postop constipation now resolved Plan: Inpatient rehab protocol Pain control Monitor hemoglobin Monitor atrial fibrillation Appreciate cardiology consultation 02/12/2021: Monitor atrial fibrillation with telemetry Supportive care PT and OT per protocol Pain control 02/13/2021: Pain control Rehab protocol Fall risk 02/14/2021: Pain control IV iron infusions Monitor A. fib 02/15/21: Pain meds effective Monitor for AF 02/16/2021: Pain control Monitor closely IV iron infusions 02/17/2021: Maintain IV iron Monitor closely Fall risk Pain control 02/18/2021: Complete IV iron infusions Monitor closely 02/19/2021: Decreased amiodarone dosing and frequency Monitor closely 02/21/2021: Monitor pain Prepare for discharge on Thursday02/22/2021: Continue pain control Intensive therapy Prepare for discharge with modifications at home of entrance way and bathroom 02/23/2021: May be need skilled care for 2 weeks while house is being prepared Decreasing pain medication 02/24/2021: [place] at discharge X-ray request from [facility] will be deferred to Dr. Bernal (1) Intertrochanteric fracture of left femur Status: Acute (2) Atrial fibrillation with RVR Status: Acute (3) MERVIN (acute kidney injury) Status: Acute (4) Postoperative anemia Status: Acute APRYL KAMINSKI DO Feb 24, 2021 07:41
[2021-02-24] MEDS: guaiFENesin (MUCINEX) 600 MG TAB PO SCH ×2 (08:23→21:07)
[2021-02-24] MEDS: APIXABAN 5 MG (ELIQUIS) TABLET PO SCH ×2 (08:23→21:07)
[2021-02-24] MEDS: PANTOPRAZOLE 40 MG (PROTONIX) TAB PO SCH (08:24)
[2021-02-24] MEDS: AMIODARONE 200 MG (CORDARONE) TAB PO SCH (08:24)
[2021-02-24] MEDS: HYDROcodone/APAP 5 MG/325 MG (LORTAB) TAB PO PRN ×3 (08:25→21:07)
[2021-02-24] MEDS: SENNA W/DOCUSATE (SENOKOT S) TABLET PO SCH ×2 (08:25→22:16)
[2021-02-24] MEDS: DOCUSATE SODIUM 100 MG (COLACE) CAP PO SCH ×2 (08:25→21:07)
--- NOTE | 2021-02-24 11:39 | Cardiology Progress Note ---
Subjective Date Seen by Provider: Feb 24, 2021 Time Seen by Provider: 11:38 Subjective/Events-last exam Patient was seen at bedside, sitting comfortably, slightly better today Review of Systems General: No Chills, No Night Sweats, No Fatigue, No Malaise, No Appetite, No Other HEENT: No Head Aches, No Visual Changes, No Eye Pain, No Ear Pain, No Dysphasia, No Sinus Congestion, No Post Nasal Drip, No Sore Throat, No Other Pulmonary: No Dyspnea, No Cough, No Pleuritic Chest Pain, No Other Cardiovascular: No: Chest Pain, Palpitations, Orthopnea, Paroxysmal Noc. Dyspnea, Edema, Lt Headedness, Other Objective-Cardiology Exam Last Set of Vital Signs Vital Signs 02/18/21 02/24/21 02/24/21 11:57 07:10 09:59 Temp 36.1 Pulse 63 Resp 20 B/P (MAP) 111/57 (75) Pulse Ox 93 O2 Delivery Room Air FiO2 21 General: Alert, Oriented X3, Cooperative HEENT: Atraumatic, PERRLA Neck: Supple, No JVD, No Thyromegaly Lungs: Clear to Auscultation, Normal Air Movement Heart: Regular Rate, Normal S1, Normal S2, No Murmurs Abdomen: Normal Bowel Sounds, Soft, No Tenderness, No Hepatosplenomegaly, No Masses Extremities: No Clubbing, No Cyanosis, No Edema, Normal Pulses, No Tenderness/Swelling Skin: No Rashes, No Breakdown, No Significant Lesion Neuro: Normal Speech Psych/Mental Status: Mental Status NL, Mood NL Results Lab Laboratory Tests 02/24/21 04:40 A/P-Cardiology Admission Diagnosis PAF Anemia L hip fx Renal insufficiency Assessment/Plan Paroxysmal atrial fibrillation, maintained on Amiodarone 200mg, Eliqius 5mg BID, metoprolol was discontinued on February 22, 2021. Continue to monitor Borderline hypotension, slightly better today. Continue to monitor blood pressure [id number] score of 2, yearly risk of stroke without oral anticoagulation is 2.2%. Maintained on Eliquis Anemia, continue to monitor H/H, management per medical services. Left hip fracture, underwent surgical repair with Dr. Morrison on February 01, 2021, receiving physical therapy Renal insufficiency, monitor renal function. JENNIFER RIVER MD Feb 24, 2021 11:38 am
[2021-02-24 20:00] VITALS: BP 119/56
[2021-02-24] MEDS: polyethylene glycoL POWDER 17 GM (MIRALAX) PACK PO SCH (22:16)
[2021-02-25 06:25] LABS: BASOPHILS % (AUTO) 0 % (0-10); EOSINOPHILS # (AUTO) 0.3 10^3/uL (0.0-0.3); EOSINOPHILS % (AUTO) 4 % (0-10); HEMATOCRIT 32 % (40-54); LYMPHOCYTES # (AUTO) 1.3 10^3/uL (1.0-4.0); LYMPHOCYTES % (AUTO) 18 % (12-44); MEAN CORPUSCULAR HEMOGLOBIN 32 pg (25-34); MEAN CORPUSCULAR HGB CONC 31 g/dL (32-36); MEAN CORPUSCULAR VOLUME 104 fL (80-99); MEAN PLATELET VOLUME 9.4 fL (9.0-12.2); MONOCYTES # (AUTO) 0.8 10^3/uL (0.0-1.0); MONOCYTES % (AUTO) 11 % (0-12); NEUTROPHILS # (AUTO) 4.6 10^3/uL (1.8-7.8); NEUTROPHILS % (AUTO) 66 % (42-75); PLATELET COUNT 281 10^3/uL (130-400)
[2021-02-25] MEDS: RT-ALBUTEROL/IPRATROPIUM 3 ML (DUONEB) VIAL INH SCH ×3 (06:30→21:33)
[2021-02-25 06:36] LABS: ALBUMIN 3.5 GM/DL (3.2-4.5)
[2021-02-25 06:37] LABS: POTASSIUM 4.1 MMOL/L (3.6-5.0)
[2021-02-25 06:38] LABS: CALCIUM 8.7 MG/DL (8.5-10.1)
[2021-02-25 06:39] LABS: TOTAL PROTEIN 6.1 GM/DL (6.4-8.2)
[2021-02-25 06:41] LABS: BILIRUBIN,TOTAL 0.7 MG/DL (0.1-1.0)
[2021-02-25 06:43] LABS: CREATININE SERUM 1.64 MG/DL (0.60-1.30)
--- NOTE | 2021-02-25 07:04 | PM&R Progress Note ---
Subjective HPI/CC On Admission Date Seen by Provider: Feb 25, 2021 Time Seen by Provider: 12:45 Subjective/Events-last exam 02/25/2021: This visit is via video chat due to Covid related restriction for this provider Patient is doing well today Decreased pain Dr Bernal to address his stepsons' request for repeat hip xray DC to [place] tomorrow PT OT orders for HH ordered Hgb 10.0 Slept well 02/24/2021: This visit is via video chat due to Covid related restriction for this provider Patient doing pretty well today Still cannot understand why he cannot take naproxen so I did explain that to him being on a blood thinner and he understands now Bowels are moving well Oxycodone is used only twice daily Going to [place] at discharge His stepsons want an x-ray done of his hip so will defer to Dr. Bernal 02/23/2021: This visit is via video chat due to Covid related restriction for this provider Patient having a good day May need to go skilled care prior to getting his house arranged for discharge on Thursday per his stepsons Sarmad and Bill Bowels moved today Edema of the left leg is improved with Gurinder wraps over LOREN hose Decreasing pain medication at his preference 02/22/2021: This visit is via video chat due to Covid related restriction for this provider Patient doing pretty well Had a lot of pain this morning He does not feel like he needs a change in his pain medication Had held metoprolol for the past 2 nights due to bradycardia but heart rate now is in 70s Dr. Roque will be updated Bowels are moving okay 02/21/2021: This visit is via video chat due to Covid related restriction for this provider Patient doing really well Has no major issues today Bowels moved yesterday Decreased pain noted Working on the entrance and shower at his house Stool softeners are maintained Discharge plan for Thursday [facility] is his pharmacy 02/19/2021: Patient feels really good Less pain today No A. fib with RVR Bowels are moving well Amiodarone decreased to 200 mg daily from 400 mg twice daily Blood pressure 105/66 02/18/2021: Patient doing pretty well Much improved Creatinine 1.73 and when he was admitted it was 1.4 indicating chronic kidney disease Hemoglobin 9.5 02/17/2021: Patient not having a good day Pain is an issue Seems to be very tired today Has worked very hard this week Dr. Roque will check labs in the morning 02/16/2021: Patient feeling pretty good trying to get used to having a heart problem IV iron infusion tolerated Pain is well controlled 02/15/21: Patient stable Hip pain increased today Pain meds given No issues 02/14/2021: Bowels are moving good IV iron infusion maintained Feels stronger No AF with RVR noted 02/13/2021: Pt doing pretty well Pain is managed with Oxycodone IV iron infusions maintained Normal sinus rhythm on telemetry so with DC telemetry 02/12/2021: Pt doing pretty well Had a bowel movement today Hemoglobin 9.0 IV iron will be restarted Creatinine at 1.41, will monitor that closely A fib is well controlled Review of Systems General: Fatigue, Malaise Musculoskeletal: leg pain Objective Exam Vital Signs Vital Signs Date Time Temp Pulse Resp B/P (MAP) Pulse Ox O2 Delivery O2 Flow Rate FiO2 02/25/21 14:26 92 Room Air 02/25/21 07:25 36.4 68 14 121/60 (80) 02/24/21 21:31 21 Capillary Refill : General Appearance: No Apparent Distress, WD/WN, Chronically ill HEENT: PERRL/EOMI, Normal ENT Inspection, Pharynx Normal Neck: Full Range of Motion, Normal Inspection, Non Tender, Supple, Carotid Bruit Respiratory: Chest Non Tender, Lungs Clear, Normal Breath Sounds, No Accessory Muscle Use, No Respiratory Distress Cardiovascular: Regular Rate, Rhythm, No Edema, No Gallop, No JVD, No Murmur, Normal Peripheral Pulses Gastrointestinal: Normal Bowel Sounds, No Organomegaly, No Pulsatile Mass, Non Tender, Soft Back: Normal Inspection, No CVA Tenderness, No Vertebral Tenderness Extremity: Normal Capillary Refill, Normal Inspection, Normal Range of Motion, Non Tender, No Calf Tenderness, No Pedal Edema Neurologic/Psychiatric: Alert, Oriented x3, No Motor/Sensory Deficits, music promoter II- XII Norm as Tested, Abnormal Gait, Depressed Affect, Motor Weakness Skin: Normal Color, Warm/Dry Lymphatic: No Adenopathy Results/Procedures Lab Laboratory Tests 02/25/21 06:15 Patient resulted labs reviewed. FIM Transfers Therapy Code Descriptions/Definitions Functional [place] Measure: 0=Not Assessed/NA 4=Minimal Assistance 1=Total Assistance 5=Supervision or Setup 2=Maximal Assistance 6=Modified [place] 3=Moderate Assistance 7=Complete IndependenceSCALE: Activities may be completed with or without assistive devices. 1-Fuxcatjkxn-lkefmmb completes the activity by him/herself with no assistance from a helper. 5-Set-up or Clean-up Assistance-helper sets up or cleans up; patient completes activity. [place] assists only prior to or following the activity. 4-Supervision or Touching Assistance-helper provides verbal cues and/or touching/steadying and/or contact guard assistance as patient completes activity. Assistance may be provided throughout the activity or intermittently. 3-Partial/Moderate Assistance-helper does LESS THAN HALF the effort. [place] lifts, holds or supports trunk or limbs, but provides less than half the effort. 2-Substantial/Maximal Assistance-helper does MORE THAN HALF the effort. [place] lifts or holds trunk or limbs and provides more than half the effort. 1-Ooanjajsp-hbhxpz does ALL the effort. Patient does none of the effort to complete the activity. Or, the assistance of 2 or more helpers is required for the patient to complete the activity. If activity was not attempted, code reason: 7-Patient Refused. 9-Not Applicable-not attempted and the patient did not perform the activity before the current illness, exacerbation or injury. 10-Not Attempted due to Environmental Limitations-(lack of equipment, weather restraints, etc.). 88-Not Attempted due to Medical Conditions or Safety Concerns. Roll Left to Right (QC): 6 Sit to Lying (QC): 3 Sit to Stand (QC): 5 Chair/Swr-yk-Cpmda Xfer(QC): 4 Car Transfer (QC): 4 Gait Training Does the Patient Walk?: Yes Distance: 450' Walk 10 feet (QC): 5 Walk 50 ft with 2 Turns(QC): 5 Walk 150 ft (QC): 5 Walking 10ft/uneven surface-QC: 3 Gait Persons Needed: 1 Gait Assistive Device: FWW Wheelchair Training Does the Pt Use a Wheelchair?: No Distance: 10' Wheel 50 ft with 2 turns (QC): 88 Wheel 150 ft (QC): 88 Type of Wheelchair: Manual Stair Training Stair Training: Handrails/: 2 handrails #of Steps: 1 1 Step (curb) (QC): 3 4 Steps (QC): 3 (B handrails; TTWB maintained; skilled cues for sequencing and technique. ) 12 Steps (QC): 88 Balance Picking up an Object (QC): 4 (in seated position) ADL-Treatment Eating (QC): 6 Oral Hygiene (QC): 6 Bathing Location: L Arm, R Arm, L Upper Leg, R Upper Leg, L Lower Leg (including foot), R Lower Leg (including foot), Chest, Abdomen, Buttocks, Perineal Area Shower/Bathe Self (QC): 4 (SUP) Upper Body Dressing (QC): 6 Lower Body Dressing (QC): 4 (SBA, use of AE) On/Off Footwear (QC): 6 (IND with sock aide L, IND R) Toileting Hygiene (QC): 6 Toilet Transfer (QC): 4 (SUP) Assessment/Plan Assessment and Plan Assess & Plan/Chief Complaint Assessment: Severe debility due to left hip fracture Atrial fibrillation with rapid ventricular response requiring transfer to the ICU 02/06/21 and discharged from inpatient rehab since less than 3 days of admission Displaced and comminuted intertrochanteric fracture of the left femur status post uncomplicated repair 02/01/21 status post repair by Dr. BERNAL New onset episode of atrial fibrillation with rapid ventricular rate requiring ICU admission 02/04/21 and Cardizem drip Postop anemia from acute blood loss requiring 4 units of blood in total Severe postop constipation now resolved Plan: Inpatient rehab protocol Pain control Monitor hemoglobin Monitor atrial fibrillation Appreciate cardiology consultation 02/12/2021: Monitor atrial fibrillation with telemetry Supportive care PT and OT per protocol Pain control 02/13/2021: Pain control Rehab protocol Fall risk 02/14/2021: Pain control IV iron infusions Monitor A. fib 02/15/21: Pain meds effective Monitor for AF 02/16/2021: Pain control Monitor closely IV iron infusions 02/17/2021: Maintain IV iron Monitor closely Fall risk Pain control 02/18/2021: Complete IV iron infusions Monitor closely 02/19/2021: Decreased amiodarone dosing and frequency Monitor closely 02/21/2021: Monitor pain Prepare for discharge on Thursday02/22/2021: Continue pain control Intensive therapy Prepare for discharge with modifications at home of entrance way and bathroom 02/23/2021: May be need skilled care for 2 weeks while house is being prepared Decreasing pain medication 02/24/2021: [facility] at discharge X-ray request from [facility] will be deferred to Dr. Bernal 02/25/21: DC to [facility] tomorrow Monitor closely (1) Intertrochanteric fracture of left femur Status: Acute (2) Atrial fibrillation with RVR Status: Acute (3) MERVIN (acute kidney injury) Status: Acute (4) Postoperative anemia Status: Acute APRYL KAMINSKI DO Feb 25, 2021 07:04
[2021-02-25 07:25] VITALS: BP 121/60
[2021-02-25] MEDS: guaiFENesin (MUCINEX) 600 MG TAB PO SCH ×2 (08:06→21:17)
[2021-02-25] MEDS: APIXABAN 5 MG (ELIQUIS) TABLET PO SCH ×2 (08:07→21:17)
[2021-02-25] MEDS: HYDROcodone/APAP 5 MG/325 MG (LORTAB) TAB PO PRN ×3 (08:07→21:18)
[2021-02-25] MEDS: PANTOPRAZOLE 40 MG (PROTONIX) TAB PO SCH (08:07)
[2021-02-25] MEDS: SENNA W/DOCUSATE (SENOKOT S) TABLET PO SCH ×2 (08:07→21:17)
[2021-02-25] MEDS: DOCUSATE SODIUM 100 MG (COLACE) CAP PO SCH ×2 (08:07→21:17)
[2021-02-25] MEDS: AMIODARONE 200 MG (CORDARONE) TAB PO SCH (08:07)
--- NOTE | 2021-02-25 08:39 | Cardiology Progress Note ---
Subjective Date Seen by Provider: Feb 25, 2021 Time Seen by Provider: 08:15 Subjective/Events-last exam Patient is with PT. No new complaints, denies any chest pain or dyspnea. Review of Systems General: No Chills, No Night Sweats, No Fatigue, No Malaise, No Appetite, No Other HEENT: No Head Aches, No Visual Changes, No Eye Pain, No Ear Pain, No Dysphasia, No Sinus Congestion, No Post Nasal Drip, No Sore Throat, No Other Pulmonary: No Dyspnea, No Cough, No Pleuritic Chest Pain, No Other Cardiovascular: No: Chest Pain, Palpitations, Orthopnea, Paroxysmal Noc. Dyspnea, Edema, Lt Headedness, Other Objective-Cardiology Exam Last Set of Vital Signs Vital Signs 02/24/21 02/25/21 02/25/21 21:31 07:25 09:00 Temp 36.4 Pulse 68 Resp 14 B/P (MAP) 121/60 (80) Pulse Ox 94 O2 Delivery Room Air FiO2 21 General: Alert, Oriented X3, Cooperative HEENT: Atraumatic, PERRLA Neck: Supple, No JVD, No Thyromegaly Lungs: Clear to Auscultation, Normal Air Movement Heart: Regular Rate, Normal S1, Normal S2, No Murmurs Abdomen: Normal Bowel Sounds, Soft, No Tenderness, No Hepatosplenomegaly, No Masses Extremities: No Clubbing, No Cyanosis, No Edema, Normal Pulses, No Tenderness/Swelling Skin: No Rashes, No Breakdown, No Significant Lesion Neuro: Normal Speech Psych/Mental Status: Mental Status NL, Mood NL Results Lab Laboratory Tests 02/25/21 06:15 A/P-Cardiology Admission Diagnosis PAF Anemia L hip fx Renal insufficiency Assessment/Plan Paroxysmal atrial fibrillation, maintained on Amiodarone 200mg, Eliqius 5mg BID , metoprolol was discontinued on February 22, 2021. Continue to monitor Borderline hypotension, slightly better today. Continue to monitor blood pressure [id number] score of 2, yearly risk of stroke without oral anticoagulation is 2.2%. Maintained on Eliquis Anemia, continue to monitor H/H, management per medical services. Left hip fracture, underwent surgical repair with Dr. Morrison on February 01, 2021, receiving physical therapy Renal insufficiency, monitor renal function. Patient was seen and evaluated with Keke, he was receiving physical therapy, he denied any chest pain or shortness of breath. No palpitation, blood pressure is better today. I will continue current medication continue to monitor, no changes are recommended Supervisory-Addendum Brief Supervisory Addendum Participated in pt care: history, MDM, physical Personally performed: exam, history, MDM Care discussed with: PA Results interpretation: Verified all documentation KEKE GAYTAN Feb 25, 2021 08:39 JENNIFER RIVER MD Feb 25, 2021 10:06
--- NOTE | 2021-02-25 09:07 | Physical Therapy Daily Note ---
PT Daily Note-Current Subjective Pt agreeable to PT. Reports he is considering going to [facility] at discharge. Concerned about persistent pain left hip. Pain Numeric Pain Scale: 3 Location: Left Location Body Site: Hip Pain Description: Ache Comment: Nursing aware; reports she (nurse) is contacting Dr. Morrison about a n X ray Mental Status Patient Orientation: Person, Place, Time, Situation Transfers SCALE: Activities may be completed with or without assistive devices. 7-Fkdiryhayt-lfvhudw completes the activity by him/herself with no assistance from a helper. 5-Set-up or Clean-up Assistance-helper sets up or cleans up; patient completes activity. [place] assists only prior to or following the activity. 4-Supervision or Touching Assistance-helper provides verbal cues and/or touching/steadying and/or contact guard assistance as patient completes activity. Assistance may be provided throughout the activity or intermittently. 3-Partial/Moderate Assistance-helper does LESS THAN HALF the effort. [place] lifts, holds or supports trunk or limbs, but provides less than half the effort. 2-Substantial/Maximal Assistance-helper does MORE THAN HALF the effort. [place] lifts or holds trunk or limbs and provides more than half the effort. 7-Aklwaxcil-mfvzii does ALL the effort. Patient does none of the effort to complete the activity. Or, the assistance of 2 or more helpers is required for the patient to complete the activity. If activity was not attempted, code reason: 7-Patient Refused. 9-Not Applicable-not attempted and the patient did not perform the activity before the current illness, exacerbation or injury. 10-Not Attempted due to Environmental Limitations-(lack of equipment, weather restraints, etc.). 88-Not Attempted due to Medical Conditions or Safety Concerns. Roll Left & Right (QC): 6 Sit to Lying (QC): 6 Lying to Sitting/Side of Bed(Q: 6 (uses UE to move left LE) Sit to Stand (QC): 6 Chair/Unu-xp-Evaan Xfer(QC): 6 Toilet Transfer (QC): 6 (uses handrail to pull up) Car Transfer (QC): 6 (uses UE to move left LE into car) Weight Bearing Right Lower Extremity: Right Full Weight Bearing Left Lower Extremity: Left Touch Toe Bearing Gait Training Does the Patient Walk?: Yes Walk 10 feet (QC): 6 Walk 50 ft with 2 Turns(QC): 6 Walk 150 ft (QC): 6 Walking 10ft/uneven surface-QC: 6 Gait Assistive Device: FWW Able to maintain TTWB status with FWW. Pt ambulated 150 ft x 4; 50 ft with 2 turns and ambulated around his room safely with FWw. Wheelchair Training Does the Pt Use a Wheelchair?: No Wheel 50 ft with 2 turns (QC): 9 Wheel 150 ft (QC): 9 Stair Training Stair Training: Handrails/: uses walker 1 Step (curb) (QC): 4 (CGA with cues for sequencing. ) 4 Steps (QC): 7 (Pt declined, noting he will not do this many steps at home and is planning to go to an INTERMEDIATE where he will not have any steps. ) 12 Steps (QC): 7 Stairs: Pattern: Hops Balance Picking up an Object (QC): 5 (with a vending machine servicer) Assessment Current Status: Good Progress Pt is mod indep at a walker level for household distances. He is experiencing left hip pain that concerns him. He reports he is anxious about going home alone so is considering INTERMEDIATE for a short period. He has made functional progress and is meeting goals to an acceptable level. PT Usp Goals Usp Goals PT Vocational Teacher Goals Time Frame: Mar 09, 2021 Roll Left & Right (QC): 5 (met) Sit to Lying (QC): 5 (met) Lying-Sitting on Side/Bed(QC): 5 (met) Sit to Stand (QC): 5 (met) Chair/Eja-ik-Vcadz Xfer(QC): 5 (met) Toilet Transfer (QC): 5 (met) Car Transfer (QC): 5 (met) Does the Patient Walk: Yes Walk 10 feet (QC): 5 (met) Walk 50ft with 2 Turns (QC): 5 (met) Walk 150 ft (QC): 5 (met) Walking 10ft on Uneven Surface: 5 (met) 1 Step (curb) (QC): 5 (scored 4) 4 Steps (QC): 5 (DNT) 12 Steps (QC): 88 Picking up an Object (QC): 5 (met) Wheel 50 feet with 2 turns (QC: 9 Type: N/A Wheel 150 feet: 9 Type: N/A PT Plan Problem List Problem List: Activity Tolerance, Functional Strength, Safety Treatment/Plan Treatment Plan: Continue Plan of Care (DC planned for tomorrow) Treatment Plan: Bed Mobility, Concurrent Therapy, Education, Functional Activity Molly, Functional Strength, Group Therapy, Gait, Safety, Therapeutic Exercise, Transfers Treatment Duration: Mar 09, 2021 Frequency: At least 5 of 7 days/Wk (IRF) Estimated Hrs Per Day: 1.5 hours per day Patient and/or Family Agrees t: Yes Safety Risks/Education Patient Education: Transfer Techniques, Safety Issues Teaching Recipient: Patient Teaching Methods: Demonstration, Discussion Response to Teaching: Return Demonstration Discharge Recommendations Therapy Discharge Recommendati: Post Acute PT (HHC PT) Time/GCodes Time In: 800 Time Out: 900 Total Billed Treatment Time: 60 Total Billed Treatment visit FA 60 LOREN QUIROZ PT Feb 25, 2021 09:07
--- NOTE | 2021-02-25 11:12 | Occupational Ther Daily Note ---
OT Current Status-Daily Note Subjective Pt AxO, states had immense pain yesterday in hip, "like the first day." Pt expresses going to [facility] for 1-2 weeks and he "feels better about it." Pt expresses sons haven't had opportunity to adapt home env yet. Agrees to tx, min pain at this time. Mental Status/Objective Patient Orientation: Person, Place, Situation, Normal For Age ADL-Treatment Therapy Code Descriptions/Definitions Functional [place] Measure: 0=Not Assessed/NA 4=Minimal Assistance 1=Total Assistance 5=Supervision or Setup 2=Maximal Assistance 6=Modified [place] 3=Moderate Assistance 7=Complete IndependenceSCALE: Activities may be completed with or without assistive devices. 5-Gztzkbnihr-vglgbjo completes the activity by him/herself with no assistance from a helper. 5-Set-up or Clean-up Assistance-helper sets up or cleans up; patient completes activity. [place] assists only prior to or following the activity. 4-Supervision or Touching Assistance-helper provides verbal cues and/or touching/steadying and/or contact guard assistance as patient completes activity. Assistance may be provided throughout the activity or intermittently. 3-Partial/Moderate Assistance-helper does LESS THAN HALF the effort. [place] lifts, holds or supports trunk or limbs, but provides less than half the effort. 2-Substantial/Maximal Assistance-helper does MORE THAN HALF the effort. [place] lifts or holds trunk or limbs and provides more than half the effort. 0-Iswxtvaje-cenuzt does ALL the effort. Patient does none of the effort to complete the activity. Or, the assistance of 2 or more helpers is required for the patient to complete the activity. If activity was not attempted, code reason: 7-Patient Refused. 9-Not Applicable-not attempted and the patient did not perform the activity before the current illness, exacerbation or injury. 10-Not Attempted due to Environmental Limitations-(lack of equipment, weather restraints, etc.). 88-Not Attempted due to Medical Conditions or Safety Concerns. Eating (QC): 6 Oral Hygiene (QC): 6 Bathing Location: L Arm, R Arm, L Upper Leg, R Upper Leg, L Lower Leg (including foot), R Lower Leg (including foot), Chest, Abdomen, Buttocks, Perineal Area Shower/Bathe Self (QC): 5 (s/u, completes all tasks) Upper Body Dressing (QC): 6 (gathers and dons) Lower Body Dressing (QC): 4 (SBA in stance, s/u for dressing stick/ technician submarine cable equipment) On/Off Footwear: 6 (socks, sock aide.) Toileting Hygiene (QC): 6 Toilet Transfer (QC): 6 (IND with walker) Other Treatment Pt ambulates with SBA with use of walker, good ability, sits on sc with min cues. Pt completes showering/ dressing with s/u for IV coverage and AE s/u. Pt completes all tasks without assist. Pt requires increased time due to L LE pain. Pill found on floor, nursing notified. Pt returns to recliner, OT/ pt discuss home and d/c tomorrow. LLE LOREN hose donned with 2 ADAMARIS bandages applied with decreasing tension proximally for 10 sec edema management dorsum of L foot. All needs met, call light in reach, left in recliner end of session. Education OT Patient Education: Progress toward Goal/Update tx plan, Purpose of tx/functional activities Teaching Recipient: Patient Teaching Methods: Demonstration, Discussion Response to Teaching: Verbalize Understanding, Return Demonstration OT Short Term Goals Short Term Goals Time Frame: Feb 18, 2021 Eatin Oral hygiene: 5 Toileting hygiene: 4 Shower/bathe self: 3 Upper body dressin Lower body dressin Putting on/taking off footwear: 4 OT Snf Goals Lean Coach Goals Time Frame: Feb 25, 2021 Eating (QC): 6 Oral Hygiene (QC): 6 Toileting Hygiene (QC): 6 Shower/Bathe Self (QC): 4 Upper Body Dressing (QC): 5 Lower Body Dressing (QC): 4 On/Off Footwear (QC): 6 Additional Goals: 1-Demonstrate ADL Tasks, 2-Verbalize Understanding, 3-Im proveStrength/Molly 1=Demonstrate adherence to instructed precautions during ADL tasks. 2=Patient will verbalize/demonstrate understanding of assistive devices/modifications for ADL. 3=Patient will improve strength/tolerance for activity to enable patient to perform ADL's. OT Education/Plan Problem List/Assessment Assessment: Decreased Activ Tolerance, Decreased UE Strength, Edema, Impaired Funct Balance, Impaired I ADL's, Impaired Self-Care Skills Discharge Recommendations Plan/Recommendations: Continue POC Therapy Discharge Recommendati: Home & Family, Post Acute OT Equpiment Recommendations-D/C: Extended Bath Bench, Rails on Tub/Shower, Hip Kit Treatment Plan/Plan of Care Treatment,Training & Education: Yes Patient would benefit from OT for education, treatment and training to promote independence in ADL's, mobility, safety and/or upper extremity function for ADL's. Plan of Care: ADL Retraining, Functional Mobility, UE Funct Exercise/Act Treatment Duration: Feb 25, 2021 Frequency: At least 5 of 7 days/Wk (IRF) Estimated Hrs Per Day: 1.5 hours per day Agreement: Yes Rehab Potential: Good Time/GCodes Start Time: 10:45 Stop Time: 11:45 Total Time Billed (hr/min): 60 Billed Treatment Time 1, ADL 3, FA (60) MARIE THURSTON OTR Feb 25, 2021 11:12
--- NOTE | 2021-02-25 14:40 | Therapy Group Daily Note ---
Therapy Daily Group Note Patient Education Topic Other List Below (Transfers, Hospital Bed Education & Mobility) Exercises LE Seated Exercise, UE Exercise Session Ratio (pt:therapist): 4:1 Goal of Session: UE/LE Strengthing, Use of Adaptive Equipment Goal Met for this Session: Yes Pt Benefit of Group: Contributions to Others, F/U Use of Strategies @Home, Increased Functional Safety, Increased Functional Strength, Improved Cognition, Recognition of Peers, Socialization Other/Notes Pt ambulated using FWW to [facility] for OT/PT group. Group consisted of introductions (name, place born, favorite restaurant), socialization, B UE seated exercises, education on hospital bed and mobility. Pt able to introduce self appropriately and actively listening to peers. Pt acknowledged understanding by verbalizing own experience. Pt was able to complete B LE/UE seated exercises well. After session, pt sitting in recliner with call light/phone in reach. All needs met in room. Start Time: 13:00 Stop Time: 14:00 Total Billed Treatment Time: 60 Total Billed Treatment 1, GRP (60m) [facility] ANALYST Feb 25, 2021 14:40
--- NOTE | 2021-02-25 16:08 | Diagnostic Imaging Report ---
HISTORY: Postop left hip. Pain in the left hip. COMPARISON: 01/31/2021. TECHNIQUE: Two views of the left hip. FINDINGS: There is internal fixation of the proximal left femur fracture with a short femoral nail, a cephalo-cervical helical blade screw and a distal interlocking screw. There appears to be migration of the helical blade screw superiorly and anteriorly, relative to the fluoroscopy from 02/01/2021, protruding from the cortex of the femoral head articular surface. There may be mild subsidence of the fracture with shortening of the femoral neck as well. IMPRESSION: 1. Migration of the left hip helical blade screw, breaching the articular surface of the femoral head. Suspect subsidence and shortening of the femoral neck. Dictated by: Dictated on workstation # [id number]
[2021-02-25] MEDS ORDERED: IPRA3AMP31 INH (18:46)
[2021-02-25] MEDS ORDERED: PANT40TA52 PO (18:46)
[2021-02-25] MEDS ORDERED: APIX5TAB PO (18:46)
[2021-02-25] MEDS ORDERED: DCS100C PO (18:46)
[2021-02-25] MEDS ORDERED: AMIO200T6 PO (18:46)
[2021-02-25] MEDS ORDERED: ACHD5005 PO (18:46)
[2021-02-25] MEDS ORDERED: POLY17PO54 PO (18:46)
[2021-02-25] MEDS ORDERED: SENN1TAB76 PO (18:46)
--- NOTE | 2021-02-25 18:47 | D/C HH Face to Face Order ---
D/C Face to Face Orders Reconcile Patient Problems Problems Reviewed?: Yes Instructions for Patient Via [facility], Patient Instructions/FollowUp: PCP [address] Morrison as scheduled Physician to follow Patient: Magdalena Discharge Diet for Home: No Restrictions Patient Problems: Hip frature New onset AF Patient Data-Allergies,Ht & Wt Patient Allergies: Coded Allergies: No Known Drug Allergies (Unverified , 01/23/12) Height (Feet): 6 Height (Inches): 2.00 Weight (Pounds): 186 Home Health Need/Face to Face Date of Face to Face: Feb 25, 2021 Clinical Findings: Generalized weakness and fatigue, Instability, Muscle weakness, Pain with ambulation, Unsteady gait I have seen Pt hqjs-bi-qcvz: Yes Discharged To: Home Diagnosis/Conditions: Hip fx Patient is Homebound due to: Miguel A fall risk due to instabilty, Muscle weakness, Pain w/ambulation Homebound Status Due to the above stated illness, injury or surgical procedure (medical condition or diagnosis) and associated clinical findings, the patient is homebound because of his/her inability to leave home except with aid of a supportive device and/or person AND leaving the home requires a considerable and taxing effort or is medically contraindicated. Pt req the following assistanc: Walker Home Health Nursing Orders Home Health Services Order: Cathead Operator-Evaluate & Treat, Physical Therapy-Evaluate & Treat Certify Stmt I certify that this patient is under my care and that I, a nurse practitioner or a physician; a cook's assistant working with me, had a face to face encounter that - meets the physician face to face encounter requirements with this patient as APRYL Cali DO Feb 25, 2021 18:47
[2021-02-25 20:00] VITALS: BP 116/59
[2021-02-25] MEDS: polyethylene glycoL POWDER 17 GM (MIRALAX) PACK PO SCH (21:20)
[2021-02-26] MEDS: RT-ALBUTEROL/IPRATROPIUM 3 ML (DUONEB) VIAL INH SCH ×2 (06:48→14:27)
[2021-02-26 07:47] VITALS: BP 132/60
[2021-02-26] MEDS: guaiFENesin (MUCINEX) 600 MG TAB PO SCH (08:19)
[2021-02-26] MEDS: AMIODARONE 200 MG (CORDARONE) TAB PO SCH (08:19)
[2021-02-26] MEDS: SENNA W/DOCUSATE (SENOKOT S) TABLET PO SCH (08:20)
[2021-02-26] MEDS: DOCUSATE SODIUM 100 MG (COLACE) CAP PO SCH (08:20)
[2021-02-26] MEDS: PANTOPRAZOLE 40 MG (PROTONIX) TAB PO SCH (08:20)
[2021-02-26] MEDS: APIXABAN 5 MG (ELIQUIS) TABLET PO SCH (08:20)
[2021-02-26] MEDS: HYDROcodone/APAP 5 MG/325 MG (LORTAB) TAB PO PRN ×2 (08:22→17:11)
--- NOTE | 2021-02-26 08:47 | Cardiology Progress Note ---
Subjective Date Seen by Provider: Feb 26, 2021 Time Seen by Provider: 08:46 Subjective/Events-last exam Patient sitting up in chair, being discharged today. Denies any chest pain or dyspnea. Review of Systems General: No Chills, No Night Sweats; Fatigue; No Malaise, No Appetite, No Other HEENT: No Head Aches, No Visual Changes, No Eye Pain, No Ear Pain, No Dysphasia, No Sinus Congestion, No Post Nasal Drip, No Sore Throat, No Other Pulmonary: No Dyspnea, No Cough, No Pleuritic Chest Pain, No Other Objective-Cardiology Exam Last Set of Vital Signs Vital Signs 02/24/21 02/26/21 02/26/21 21:31 07:47 09:08 Temp 36.1 Pulse 73 Resp 18 B/P (MAP) 132/60 (84) Pulse Ox 95 O2 Delivery Room Air FiO2 21 General: Alert, Oriented X3, Cooperative HEENT: Atraumatic, PERRLA Neck: Supple, No JVD, No Thyromegaly Lungs: Clear to Auscultation, Normal Air Movement Heart: Regular Rate, Normal S1, Normal S2, No Murmurs Abdomen: Normal Bowel Sounds, Soft, No Tenderness, No Hepatosplenomegaly, No Masses Extremities: No Clubbing, No Cyanosis, No Edema, Normal Pulses, No Tenderness/Swelling Skin: No Rashes, No Breakdown, No Significant Lesion Neuro: Normal Speech Psych/Mental Status: Mental Status NL, Mood NL A/P-Cardiology Admission Diagnosis PAF Anemia L hip fx Renal insufficiency Assessment/Plan Paroxysmal atrial fibrillation, maintained on Amiodarone 200mg, Eliqius 5mg BID, metoprolol was discontinued on February 22, 2021. Continue to monitor Borderline hypotension, blood pressure improved. Continue to monitor blood pre ssure [id number] score of 2, yearly risk of stroke without oral anticoagulation is 2.2%. Maintained on Eliquis Anemia, continue to monitor H/H, management per medical services. Left hip fracture, underwent surgical repair with Dr. Morrison on February 01, 2021, receiving physical therapy, Had another x-ray showing possible migration, patient will see Dr. Hall for possible hip replacement Renal insufficiency, monitor renal function. Patient was seen and evaluated with Keke, examination performed, management plan was discussed, agree with the current scribed note, I made few changes to the note using Italic font Supervisory-Addendum Brief Supervisory Addendum Participated in pt care: history, MDM, physical Personally performed: exam, history, MDM Care discussed with: PA Results interpretation: Verified all documentation KEKE GAYTAN Feb 26, 2021 08:47 JENNIFER RIVER MD Feb 26, 2021 14:06
--- NOTE | 2021-02-26 09:04 | Discharge Summary ---
Diagnosis/Chief Complaint Date of Admission Feb 11, 2021 at 13:19 Date of Discharge Discharge Date: Feb 26, 2021 Discharge Diagnosis Assessment: Severe debility due to left hip fracture Atrial fibrillation with rapid ventricular response requiring transfer to the ICU 02/06/21 and discharged from inpatient rehab since less than 3 days of admission Displaced and comminuted intertrochanteric fracture of the left femur status post uncomplicated repair 02/01/21 status post repair by Dr. MORRISON New onset episode of atrial fibrillation with rapid ventricular rate requiring ICU admission 02/04/21 and Cardizem drip Postop anemia from acute blood loss requiring 4 units of blood in total and completed 1 g IV iron Severe postop constipation now resolved New onset hypothyroidism diagnosed 02/26/2021 started on 25 mcg daily gentle dose due to atrial fibrillation episode Plan: Inpatient rehab protocol Pain control Monitor hemoglobin Monitor atrial fibrillation Appreciate cardiology consultation 02/12/2021: Monitor atrial fibrillation with telemetry Supportive care PT and OT per protocol Pain control 02/13/2021: Pain control Rehab protocol Fall risk 02/14/2021: Pain control IV iron infusions Monitor A. fib 02/15/21: Pain meds effective Monitor for AF 02/16/2021: Pain control Monitor closely IV iron infusions 02/17/2021: Maintain IV iron Monitor closely Fall risk Pain control 02/18/2021: Complete IV iron infusions Monitor closely 02/19/2021: Decreased amiodarone dosing and frequency Monitor closely 02/21/2021: Monitor pain Prepare for discharge on Thursday02/22/2021: Continue pain control Intensive therapy Prepare for discharge with modifications at home of entrance way and bathroom 02/23/2021: May be need skilled care for 2 weeks while house is being prepared Decreasing pain medication 02/24/2021: [facility] at discharge X-ray request from [facility] will be deferred to Dr. Morrison 02/25/21: DC to [facility] tomorrow Monitor closely (1) Intertrochanteric fracture of left femur Status: Acute (2) Atrial fibrillation with RVR Status: Acute (3) MERVIN (acute kidney injury) Status: Acute (4) Postoperative anemia Status: Acute Discharge Summary Discharge Physical Examination Allergies: Coded Allergies: No Known Drug Allergies (Unverified , 01/23/12) Vitals & I&Os Vital Signs Date Time Temp Pulse Resp B/P (MAP) Pulse Ox O2 Delivery O2 Flow Rate FiO2 02/26/21 17:29 36.4 67 18 114/59 95 Room Air 02/24/21 21:31 21 General Appearance: Alert, Oriented X3, Cooperative Respiratory: Clear to Auscultation Cardiovascular: Regular Rate Neuro: Normal Gait, Normal Speech, Strength at 5/5 X4 Ext Psych/Mental Status: Mental Status NL Hospital Course Was the Problem List Reviewed?: Yes Hospital course: Patient had a lengthy hospital course due to severe postoperative anemia from acute blood loss requiring 4 units of blood on MedSurg in ICU along with iron infusion completion. New onset atrial fibrillation was managed with high dose of amiodarone 400 mg twice daily and decreased to [address] Roque. He had no other events of atrial fibrillation with rapid ventricular response. Recovery was slow pain was an issue managed with pain medication. Bowel regimen returned back to normal. Overall he remained stable but repeat x-ray of the hip showed one of the screws was becoming displaced so he will meet with Dr. Hall orthopedic surgery at [place] next week after he settled in at [facility] living [facility] and he was started on a small dose of thyroid medication since TSH was 7.46 first dose was given prior to discharge and that was on his discharge packet. He will have close fol low-up with Dr. Nichols primary care provider and Dr. Roque cardiology. Labs (last 24 hrs) Laboratory Tests 02/12/21 04:57: White Blood Count 9.5, Red Blood Count 2.79L, Hemoglobin 9.0L, Hematocrit 28L, Mean Corpuscular Volume 101H, Mean Corpuscular Hemoglobin 32, Mean Corpuscular Hemoglobin Concent 32, Red Cell Distribution Width 15.3H, Platelet Count 339, Mean Platelet Volume 9.7, Immature Granulocyte % (Auto) 7, Neutrophils (%) (Auto) 63, Lymphocytes (%) (Auto) 14, Monocytes (%) (Auto) 13H, Eosinophils (%) (Auto) 3, Basophils (%) (Auto) 0, Neutrophils # (Auto) 5.9, Lymphocytes # (Auto) 1.3, Monocytes # (Auto) 1.2H, Eosinophils # (Auto) 0.3, Basophils # (Auto) 0.0, Immature Granulocyte # (Auto) 0.7H, Sodium Level 138, Potassium Level 4.3, Chloride Level 103, Carbon Dioxide Level 27, Anion Gap 8, Blood Urea Nitrogen 24H, Creatinine 1.41H, Estimat Glomerular Filtration Rate 48, BUN/Creatinine Ratio 17, Glucose Level 103, Calcium Level 8.3L, Corrected Calcium 9.0, Total Bilirubin 2.1H, Aspartate Amino Transf (AST/SGOT) 26, Alanine Aminotransferase (ALT/SGPT) 26, Alkaline Phosphatase 65, Total Protein 5.9L, Albumin 3.1L 02/18/21 05:45: White Blood Count 9.0, Red Blood Count 2.98L, Hemoglobin 9.5L, Hematocrit 31L, Mean Corpuscular Volume 103H, Mean Corpuscular Hemoglobin 32, Mean Corpuscular Hemoglobin Concent 31L, Red Cell Distribution Width 15.5H, Platelet Count 384, Mean Platelet Volume 9.6, Sodium Level 138, Potassium Level 4.5, Chloride Level 102, Carbon Dioxide Level 28, Anion Gap 8, Blood Urea Nitrogen 19H, Creatinine 1.73H, Estimat Glomerular Filtration Rate 38, BUN/Creatinine Ratio 11, Glucose Level 101, Calcium Level 8.6, Corrected Calcium 9.0, Total Bilirubin 1.3H, Aspartate Amino Transf (AST/SGOT) 23, Alanine Aminotransferase (ALT/SGPT) 18, Alkaline Phosphatase 93, Total Protein 6.2L, Albumin 3.5 02/24/21 04:40: White Blood Count 7.5, Red Blood Count 2.94L, Hemoglobin 9.7L, Hematocrit 30L, Mean Corpuscular Volume 103H, Mean Corpuscular Hemoglobin 33, Mean Corpuscular Hemoglobin Concent 32, Red Cell Distribution Width 15.2H, Platelet Count 278, Mean Platelet Volume 9.5, Sodium Level 140, Potassium Level 4.1, Chloride Level 104, Carbon Dioxide Level 28, Anion Gap 8, Blood Urea Nitrogen 16, Creatinine 1.59H, Estimat Glomerular Filtration Rate 42, BUN/Creatinine Ratio 10, Glucose Level 96, Calcium Level 8.4L 02/25/21 06:15: White Blood Count 7.0, Red Blood Count 3.11L, Hemoglobin 10.0L, Hematocrit 32L, Mean Corpuscular Volume 104H, Mean Corpuscular Hemoglobin 32, Mean Corpuscular Hemoglobin Concent 31L, Red Cell Distribution Width 15.3H, Platelet Count 281, Mean Platelet Volume 9.4, Immature Granulocyte % (Auto) 1, Neutrophils (%) (Auto) 66, Lymphocytes (%) (Auto) 18, Monocytes (%) (Auto) 11, Eosinophils (%) (Auto) 4, Basophils (%) (Auto) 0, Neutrophils # (Auto) 4.6, Lymphocytes # (Auto) 1.3, Monocytes # (Auto) 0.8, Eosinophils # (Auto) 0.3, Basophils # (Auto) 0.0, Immature Granulocyte # (Auto) 0.1, Sodium Level 139, Potassium Level 4.1, Chloride Level 102, Carbon Dioxide Level 27, Anion Gap 10, Blood Urea Nitrogen 17, Creatinine 1.64H, Estimat Glomerular Filtration Rate 40, BUN/Creatinine Ratio 10, Glucose Level 102, Calcium Level 8.7, Corrected Calcium 9.1, Total Bilirubin 0.7, Aspartate Amino Transf (AST/SGOT) 22, Alanine Aminotransferase (ALT/SGPT) 24, Alkaline Phosphatase 104, Total Protein 6.1L, Albumin 3.5, Thyroid Stimulating Hormone (TSH) 7.87H Pending Labs Laboratory Tests 02/12/21 04:57: White Blood Count 9.5, Red Blood Count 2.79, Hemoglobin 9.0, Hematocrit 28, Mean Corpuscular Volume 101, Mean Corpuscular Hemoglobin 32, Mean Corpuscular Hemoglobin Concent 32, Red Cell Distribution Width 15.3, Platelet Count 339, Mean Platelet Volume 9.7, Immature Granulocyte % (Auto) 7, Neutrophils (%) (Auto) 63, Lymphocytes (%) (Auto) 14, Monocytes (%) (Auto) 13, Eosinophils (%) (Auto) 3, Basophils (%) (Auto) 0, Neutrophils # (Auto) 5.9, Lymphocytes # (Auto) 1.3, Monocytes # (Auto) 1.2, Eosinophils # (Auto) 0.3, Basophils # (Auto) 0.0, Immature Granulocyte # (Auto) 0.7, Sodium Level 138, Potassium Level 4.3, Chloride Level 103, Carbon Dioxide Level 27, Anion Gap 8, Blood Urea Nitrogen 24, Creatinine 1.41, Estimat Glomerular Filtration Rate 48, BUN/Creatinine Ratio 17, Glucose Level 103, Calcium Level 8.3, Corrected Calcium 9.0, Total Bilirubin 2.1, Aspartate Amino Transf (AST/SGOT) 26, Alanine Aminotransferase (ALT/SGPT) 26, Alkaline Phosphatase 65, Total Protein 5.9, Albumin 3.1 02/18/21 05:45: White Blood Count 9.0, Red Blood Count 2.98, Hemoglobin 9.5, Hematocrit 31, Mean Corpuscular Volume 103, Mean Corpuscular Hemoglobin 32, Mean Corpuscular Hemoglobin Concent 31, Red Cell Distribution Width 15.5, Platelet Count 384, Mean Platelet Volume 9.6, Sodium Level 138, Potassium Level 4.5, Chloride Level 102, Carbon Dioxide Level 28, Anion Gap 8, Blood Urea Nitrogen 19, Creatinine 1.73, Estimat Glomerular Filtration Rate 38, BUN/Creatinine Ratio 11, Glucose Level 101, Calcium Level 8.6, Corrected Calcium 9.0, Total Bilirubin 1.3, Aspartate Amino Transf (AST/SGOT) 23, Alanine Aminotransferase (ALT/SGPT) 18, Alkaline Phosphatase 93, Total Protein 6.2, Albumin 3.5 02/24/21 04:40: White Blood Count 7.5, Red Blood Count 2.94, Hemoglobin 9.7, Hematocrit 30, Mean Corpuscular Volume 103, Mean Corpuscular Hemoglobin 33, Mean Corpuscular Hemoglobin Concent 32, Red Cell Distribution Width 15.2, Platelet Count 278, Mean Platelet Volume 9.5, Sodium Level 140, Potassium Level 4.1, Chloride Level 104, Carbon Dioxide Level 28, Anion Gap 8, Blood Urea Nitrogen 16, Creatinine 1. 59, Estimat Glomerular Filtration Rate 42, BUN/Creatinine Ratio 10, Glucose Level 96, Calcium Level 8.4 02/25/21 06:15: White Blood Count 7.0, Red Blood Count 3.11, Hemoglobin 10.0, Hematocrit 32, Mean Corpuscular Volume 104, Mean Corpuscular Hemoglobin 32, Mean Corpuscular Hemoglobin Concent 31, Red Cell Distribution Width 15.3, Platelet Count 281, Mean Platelet Volume 9.4, Immature Granulocyte % (Auto) 1, Neutrophils (%) (Auto) 66, Lymphocytes (%) (Auto) 18, Monocytes (%) (Auto) 11, Eosinophils (%) (Auto) 4, Basophils (%) (Auto) 0, Neutrophils # (Auto) 4.6, Lymphocytes # (Auto) 1.3, Monocytes # (Auto) 0.8, Eosinophils # (Auto) 0.3, Basophils # (Auto) 0.0, Immature Granulocyte # (Auto) 0.1, Sodium Level 139, Potassium Level 4.1, Chloride Level 102, Carbon Dioxide Level 27, Anion Gap 10, Blood Urea Nitrogen 17, Creatinine 1.64, Estimat Glomerular Filtration Rate 40, BUN/Creatinine Ratio 10, Glucose Level 102, Calcium Level 8.7, Corrected Calcium 9.1, Total Bilirubin 0.7, Aspartate Amino Transf (AST/SGOT) 22, Alanine Aminotransferase (ALT/SGPT) 24, Alkaline Phosphatase 104, Total Protein 6.1, Albumin 3.5, Thyroid S timulating Hormone (TSH) 7.87 Discharge Home Medications: Active Scripts Active Synthroid (Levothyroxine Sodium) 25 Mcg Tablet 25 Mcg PO DAILY Pantoprazole Sodium 40 Mg Tablet.dr 40 Mg PO DAILY Stool Softener-Laxative Tablet (Sennosides/Docusate Sodium) 1 Each Tablet 1 Ea PO BID PRN Polyethylene Glycol 3350 17 Gm Powd.pack 17 Gm PO HS Dok (Docusate Sodium) 100 Mg Capsule 100 Mg PO BID HYDROcodone/APAP 5 MG/325 MG TAB (Acetaminophen/Hydrocodone Bitart) 1 Tab Tab 1 Ea PO Q4H PRN Amiodarone HCl 200 Mg Tablet 200 Mg PO DAILY Eliquis (Apixaban) 5 Mg Tablet 5 Mg PO BID Iprat-Albut 0.5-3(2.5) mg/3 ml (Ipratropium/Albuterol Sulfate) 3 Ml Ampul.neb 3 Ml INH TID Reported Vitamin D3 (Cholecalciferol (Vitamin D3)) 125 Mcg Tablet 125 Mcg PO DAILY Mucinex (Guaifenesin) 600 Mg Tab.er.12h 600 Mg PO BID Instructions to patient/family Please see electronic discharge instructions given to patient. Diagnosis/Problems Diagnosis/Problems (1) Intertrochanteric fracture of left femur Status: Acute (2) Atrial fibrillation with RVR Status: Acute (3) MERVIN (acute kidney injury) Status: Acute (4) Postoperative anemia Status: Acute APRYL KAMINSKI DO Feb 26, 2021 09:04
--- NOTE | 2021-02-26 11:08 | Therapy Team Discharge Summary ---
Therapy Discharge Summary Discharge Recommendations Date of Discharge 02/26/21 Therapy D/C Recommendations: Physical Therapy Home Care Physical Therapy This patient admitted to ARU post acute hospital stay after a fall that resulted in a left hip fracture. The fracture was repaired surgically. His course of medical care was complicated by an onset of A fib. Prior to the fall, he was living at home alone and indep with all mobility and self care. Upon admission to this unit, he required min assist with all mobility to include bed mobility, transfers and gait. He has the precaution of TTWB. Treatment has consisted of functional strength training, dynamic balance, functional activity tolerance progression all to facilitate improved bed mobility, transfers and gait. He has made good progress and is achieving goals to an acceptable level. He is grossly mod indep with all mobility at this time using a FWW and maintains TTWB. He continues to report left hip pain, which is being monitored and followed by ortho care with an outpt follow up appt expected to follow. Pt to discharge this date to a nearby [facility]. Recommend [facility] PT to follow. DC from ARU at this time. Occupational Therapy Decreased Activ Tolerance, Decreased UE Strength, Edema, Impaired Funct Balance, Impaired I ADL's, Impaired Self-Care Skills PT Health Tech Goals Health Tech Goals PT Health Tech Goals Time Frame: Mar 09, 2021 Roll Left to Right (QC): 5 (met) Sit to Lying (QC): 5 (met) Lying-Sitting on Side/Bed(QC): 5 (met) Sit to Stand (QC): 5 (met) Chair/[id number] Xfer(QC): 5 (met) Car Transfer (QC): 5 (met) Does the Patient Walk: Yes Walk 10 feet (QC): 5 (met) Walk 10ft-Uneven Surface(QC): 5 (met) Walk 50ft with 2 Turns (QC): 5 (met) Walk 150 ft (QC): 5 (met) Wheel 50 feet with 2 turns (QC: 9 1 Step (curb) (QC): 5 (scored 4) 4 Steps (QC): 5 (DNT) 12 Steps (QC): 88 Picking up an Object (QC): 5 (met) OT Detention Goals Health Tech Goals Time Frame: Feb 25, 2021 Eating (QC): 6 Oral Hygiene (QC): 6 Shower/Bathe Self (QC): 4 Upper Body Dressing (QC): 5 Lower Body Dressing (QC): 4 On/Off Footwear (QC): 6 Toileting Hygiene (QC): 6 Toilet/Commode Transfer (QC): 5 (met) Additional Goals: 1-Demonstrate ADL Tasks, 2-Verbalize Understanding, 3- ImproveStrength/Molly 1=Demonstrate adherence to instructed precautions during ADL tasks. 2=Patient will verbalize/demonstrate understanding of assistive devices/modifications for ADL. 3=Patient will improve strength/tolerance for activity to enable patient to perform ADL's. LOREN QUIROZ PT Feb 26, 2021 11:08
--- NOTE | 2021-02-26 12:20 | Progress Note ---
Standard Progress Note Progress Notes/Assess & Plan Date Seen by a Provider: Feb 26, 2021 Time Seen by a Provider: 12:19 Progress/Assessment & Plan feeling better Vital Signs Date Time Temp Pulse Resp B/P (MAP) Pulse Ox O2 Delivery O2 Flow Rate FiO2 02/13/21 06:16 94 Room Air 02/13/21 01:00 61 02/12/21 20:40 91 Room Air 02/12/21 20:10 Room Air 02/12/21 20:06 65 108/55 (72) 02/12/21 19:25 36.7 69 18 96/59 (71) 93 02/12/21 19:00 66 02/12/21 15:05 90 Room Air 02/12/21 09:00 Room Air 02/12/21 08:54 71 125/58 (80) 95 Room Air Incision clean and dry. No calf tenderness. Neg Sherly's good abd/adduction strength poor SLR s/p L hip IM aarti TTWB LLE Final Diagnosis Had a lengthy discussion with the patient today His radiographs reveal early cutout of his HW he will be set up to see Dr. Hall for conversion to a DARELL patient is in agreement with HUMERA Mccray MD Feb 26, 2021 12:20
[2021-02-26] MEDS ORDERED: LEVO25TA2 PO (12:59)
[2021-02-26] MEDS ORDERED: LEVOTHYROXINE 25 MCG (LEVOTHROID) TAB PO ONE (13:15)
--- NOTE | 2021-02-26 15:37 | Therapy Team Discharge Summary ---
Therapy Discharge Summary Discharge Recommendations Date of Discharge Therapy D/C Recommendations: Physical Therapy Home Care Occupational Therapy Pt admitted to ARU s/p hip fx. At PLOF, pt was independent with all ADLs and functional mobility, did not use AE/AD. Upon admission, pt was independent with eating, required set up assist oral care, min A showering, SBA upper body dressing, max A lower body dressing, max A footwear and max A toileting. OT tx focused on increasing strength and activity tolerance BUEs, education on AE for LE dressing, and increasing safety and independence with ADLs and functional mobility. At discharge, pt was independent with eating, oral care, upper body dressing, footwear and toileting, required set up assistance with shower, and SBA lower body dressing. Pt made good functional progress, meeting all LTGs. Pt to discharge to [facility] on this date, d/c from OT. Decreased Activ Tolerance, Decreased UE Strength, Edema, Impaired Funct Balance, Impaired I ADL's, Impaired Self-Care Skills PT Needle Leader Goals Mcfp Goals PT Needle Leader Goals Time Frame: Mar 09, 2021 Roll Left to Right (QC): 5 (met) Sit to Lying (QC): 5 (met) Lying-Sitting on Side/Bed(QC): 5 (met) Sit to Stand (QC): 5 (met) Chair/[id number]-Ldgob Xfer(QC): 5 (met) Car Transfer (QC): 5 (met) Does the Patient Walk: Yes Walk 10 feet (QC): 5 (met) Walk 10ft-Uneven Surface(QC): 5 (met) Walk 50ft with 2 Turns (QC): 5 (met) Walk 150 ft (QC): 5 (met) Wheel 50 feet with 2 turns (QC: 9 1 Step (curb) (QC): 5 (scored 4) 4 Steps (QC): 5 (DNT) 12 Steps (QC): 88 Picking up an Object (QC): 5 (met) OT Needle Leader Goals Mcfp Goals Time Frame: Feb 25, 2021 Eating (QC): 6 (met) Oral Hygiene (QC): 6 (met) Shower/Bathe Self (QC): 4 (met) Upper Body Dressing (QC): 5 (met) Lower Body Dressing (QC): 4 (met) On/Off Footwear (QC): 6 (met) Toileting Hygiene (QC): 6 (met) Toilet/Commode Transfer (QC): 5 (met) Additional Goals: 1-Demonstrate ADL Tasks, 2-Verbalize Understanding, 3- ImproveStrength/Molly 1=Demonstrate adherence to instructed precautions during ADL tasks. 2=Patient will verbalize/demonstrate understanding of assistive devices/modifications for ADL. 3=Patient will improve strength/tolerance for activity to enable patient to perform ADL's. YULISSA SANCHEZ OT Feb 26, 2021 15:37
[2021-02-26 16:52] VITALS: BP 114/59
[2021-02-26 17:29] VITALS: BP 114/59
== END 2021-02-26 17:32 | disposition home health service (06) | DRG 560 ==
PROVIDERS: ADMIT Internal Medicine; ATTEND Internal Medicine
DX: S72.142D Displaced intertrochanteric fracture of left femur, subsequent encounter for closed fracture with routine healing (principal); D62 Acute posthemorrhagic anemia; I48.0 Paroxysmal atrial fibrillation; F32.9 Major depressive disorder, single episode, unspecified; Z87.891 Personal history of nicotine dependence; N18.9 Chronic kidney disease, unspecified; R26.81 Unsteadiness on feet; E03.9 Hypothyroidism, unspecified; K59.09 Other constipation
CPT/HCPCS: 36415; 73502; 80048; 80053; 84443; 85025; 85027; 94640; 94760

== ENCOUNTER 2021-05-03 07:12 | Emergency (ER) | payer MEDICARE ==
[~2021-05-03] VITALS: Ht 157.5 cm; Wt 79.4 kg
[~2021-05-03 07:12] MED LIST changes: +ACHD5005 PO; +AMIO200T6 PO; +APIX5TAB PO; +DCS100C PO; +LEVO25TA2 PO; +PANT40TA52 PO; +POLY17PO54 PO; +SENN1TAB76 PO
[2021-05-03] MEDS ORDERED: ETOMIDATE IV SOLN 20 MG/10 ML VIAL IV ONE (07:17)
[2021-05-03] MEDS ORDERED: NS IV 1000 ML 1,000 ML ONE (07:26)
--- NOTE | 2021-05-03 07:43 | ED Lower Extremity ---
General Stated Complaint: UNKNOWN Source: patient, EMS Exam Limitations: no limitations History of Present Illness Date Seen by Provider: May 03, 2021 Time Seen by Provider: 07:10 Initial Comments Patient is an 81-year-old male who presents to the emergency department today with a chief complaint of left hip dislocation. Patient is about 3 months out of left hip replacement. States that he was shifting in the bed this morning when he felt his hip pop out of place. He denies any recent histories of falls or other injuries. Has significant pain to the left hip. No pain medications prior to arrival. Has a history of A. fib, COPD. Is not on chronic oxygen therapy. Is on chronic anticoagulation. No recent illnesses. Denies numbness tingling or weakness in his foot of his left leg. All other review of systems reviewed and negative except as stated. Onset: just prior to arrival Severity: severe Pain/Injury Location: left hip Method of Injury: twisted Modifying Factors: Worse With Movement Allergies and Home Medications Allergies Coded Allergies: No Known Drug Allergies (Unverified , 01/23/12) Patient Home Medication List Home Medication List Reviewed: Yes Amiodarone HCl (Amiodarone HCl) 200 Mg Tablet, 200 MG PO DAILY Prescribed by: APRYL KAMINSKI on 02/25/211845 Apixaban (Eliquis) 5 Mg Tablet, 5 MG PO BID Prescribed by: APRYL KAMINSKI on 02/25/211845 Cholecalciferol (Vitamin D3) (Vitamin D3) 125 Mcg Tablet, 125 MCG PO DAILY, (Reported) Entered as Reported by: MI BONDS on 02/04/21 0849 Docusate Sodium (Dok) 100 Mg Capsule, 100 MG PO BID Prescribed by: APRYL KAMINSKI on 02/25/211845 Guaifenesin (Mucinex) 600 Mg Tab.er.12h, 600 MG PO BID, (Reported) Entered as Reported by: MI BONDS on 02/04/21 0849 Hydrocodone Bit/Acetaminophen (HYDROcodone/APAP 5 MG/325 MG TAB) 1 Tab Tab, 1 EA PO Q4H PRN for PAIN-SEVERE (8-10) Prescribed by: APRYL KAMINSKI on 02/25/211845 Ipratropium/Albuterol Sulfate (Iprat-Albut 0.5-3(2.5) mg/3 ml) 3 Ml Ampul.neb, 3 ML INH TID Prescribed by: APRYL KAMINSKI on 02/25/211845 Levothyroxine Sodium (Synthroid) 25 Mcg Tablet, 25 MCG PO DAILY Prescribed by: APRYL KAMINSKI on 02/26/21 1259 Pantoprazole Sodium (Pantoprazole Sodium) 40 Mg Tablet.dr, 40 MG PO DAILY Prescribed by: APRYL KAMINSKI on 02/25/211845 Polyethylene Glycol 3350 (Polyethylene Glycol 3350) 17 Gm Powd.pack, 17 GM PO HS Prescribed by: APRYL KAMINSKI on 02/25/211845 Sennosides/Docusate Sodium (Stool Softener-Laxative Tablet) 1 Each Tablet, 1 EA PO BID PRN for CONSTIPATION-6TH LINE Prescribed by: APRYL KAMINSKI on 02/25/211845 Review of Systems Constitutional: see HPI EENTM: no symptoms reported Respiratory: no symptoms reported Cardiovascular: no symptoms reported Gastrointestinal: no symptoms reported Genitourinary: no symptoms reported Musculoskeletal: joint pain (Left hip) Skin: no symptoms reported Psychiatric/Neurological: No Symptoms Reported All Other Systems Reviewed Negative Unless Noted: Yes Past Zsbtqut-Pjvoyl-Mfxpph Hx Past Medical History Surgery/Hospitalization HX: EYE SURGERY, HERNIA REPAIR Surgeries: Yes (hernia) Orthopedic Respiratory: Yes COPD Currently Using CPAP: No Currently Using BIPAP: No Cardiac: No Atrial Fibrillation Neurological: No Reproductive Disorders: No Genitourinary: No Gastrointestinal: No Musculoskeletal: No Endocrine: No HEENT: No Cancer: No Psychosocial: No Integumentary: No Blood Disorders: No Physical Exam Vital Signs Vital Signs - First Documented 05/03/21 07:12 Temp 36.0 Pulse 82 Resp 17 B/P (MAP) 179/104 (129) Pulse Ox 94 O2 Delivery Room Air Capillary Refill : Height, Weight, BMI Height: 6'2.00" Weight: 186lbs. oz. 81.247666bd; 25.49 BMI Method: General Appearance: WD/WN, moderate distress HEENT: PERRL/EOMI Cardiovascular: regular rate, rhythm, other (Distal pulses intact) Respiratory: lungs clear, normal breath sounds, no respiratory distress, no accessory muscle use Gastrointestinal: non tender, soft Hips: left hip deformity, left hip pain Legs: bilateral leg non-tender, bilateral leg normal inspection, bilateral leg normal range of motion, bilateral leg no evidence of injury Knees: bilateral knee non-tender, bilateral knee normal inspection, bilateral knee no evidence of injury Ankles: bilateral ankle non-tender, bilateral ankle normal inspection, bilateral ankle normal range of motion, bilateral ankle no evidence of injury Feet: bilateral foot non-tender, bilateral foot normal inspection, bilateral foot normal range of motion, bilateral foot no evidence of injury Neurologic/Tendon: normal sensation, normal motor functions Neurologic/Psychiatric: alert, normal mood/affect, oriented x 3 Skin: normal color, warm/dry Procedures/Interventions Splinting and Joint Reduction : Location: Left hip Pre-Proc Neuro Vasc Exam: normal Post-Proc Neuro Vasc Exam: normal Progress Consent for procedural sedation obtained from the patient. Joint Reduction Site: hip (L) Reduction Attempts: 1 Pre-Procedure NV Exam: Yes post joint reduction film: joint reduced Immobilizers: 24 inch Knee Progress/Results/Core Measures Results/Orders My Orders Orders - DARYA CHAPMAN MD Ns Iv 1000 Ml (Sodium Chloride 0.9%) (05/03/21 07:26) Fentanyl Inj (Sublimaze Injection) (05/03/21 07:45) Pelvis With Left Hip 2-3 Views (05/03/21 07:36) Medications Given in ED Current Medications Medications Dose Ordered Sig/Brayan Route Start Time Stop Time Status Last Admin Dose Admin Fentanyl Citrate 100 mcg ONCE ONCE IVP 05/03/21 07:45 05/03/21 07:46 DC 05/03/21 07:16 100 MCG Sodium Chloride 1,000 ml @ STK-MED ONCE .ROUTE 05/03/21 07:26 05/03/21 07:29 DC 05/03/21 07:27 1,000 MLS/HR Vital Signs/I&O 05/03/21 05/03/21 05/03/21 07:12 07:29 07:29 Temp 36.0 Pulse 82 80 Resp 17 20 B/P (MAP) 179/104 (129) 176/90 Pulse Ox 94 97 O2 Delivery Room Air Nasal Cannula Nasal Cannula O2 Flow Rate 2.00 2.00 Progress Progress Note : Time: 07:25 Progress Note Patient was consented for procedural sedation for closed reduction of left hip dislocation. No allergies to medications. N.p.o. since last night. Vital signs are stable, slightly hypertensive secondary to pain. Neurovascularly intact to the left lower extremity. Mallampati classification 3. After sedation with 20 mg of etomidate. Patient had left leg externally rotated with traction placed and a little bit of external rotation to the left hip. Hip reduced nice and easily after 1 attempt. Remains neurovascularly intact. Vital signs are stable. On 2 L of oxygen he is satting 94%. Diagnostic Imaging Diagonstic Imaging: Xray Plain Films/CT/US/NM/MRI: pelvis, hip Comments reviewed by me, successful reduction of left hip dislocation. no obvious fractures Departure Impression Primary Impression: Hip dislocation, left Qualified Codes: S73.005A - Unspecified dislocation of left hip, initial encounter Disposition: HOME, SELF-CARE Condition: Stable Departure-Patient Inst. Decision time for Depature: 07:42 Referrals: ERIK JOHN MD (PCP/Family) Primary Care Physician HUMERA MORRISON MD Patient Instructions: Hip Dislocation Add. Discharge Instructions: Keep the knee immobilizer in place until you follow-up with your orthopedic doctor. You can follow-up with either Dr. Dr. Morrison or your orthopedic surgeon at [facility]. I would recommend you follow-up within the next 1 to 2 weeks. Keeping the knee immobilizer in place will help you not redislocate the left hip. You can take the knee immobilizer off to sleep if you would like and use the abduction pillow. This will also help keep your hip dislocating while you sleep. Come back to the emergency department for any new, concerning or emergent complaints. DARYA CHAPMAN MD May 03, 2021 07:43
[2021-05-03] MEDS ORDERED: fentaNYL INJ 100 MCG/2 ML AMP IVP ONE (07:45)
--- NOTE | 2021-05-03 09:28 | Diagnostic Imaging Report ---
INDICATION: Hip pain AP pelvis and AP and lateral views of the left hip are obtained. Comparison made to 01/31/2021. Left hip prosthesis appears in good alignment with no sign of fracture or device loosening. There are mild degenerative changes of the right hip. There are heterotopic calcifications about the left hip joint which appear chronic. IMPRESSION: Well aligned left hip prosthesis with no acute bony abnormality. 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 There are mild degenerative findings on the right side. Dictated by: Dictated on workstation # [id number]
[2021-05-03 09:56] VITALS: BP 112/50
== END 2021-05-03 09:56 | disposition home or self-care (01) ==
LOC: EDUNIT# 07:15 → ER 07:16
DX: S73.005A Unspecified dislocation of left hip, initial encounter (principal); I48.91 Unspecified atrial fibrillation; J44.9 Chronic obstructive pulmonary disease, unspecified; Z96.642 Presence of left artificial hip joint; Z99.81 Dependence on supplemental oxygen; Z79.01 Long term (current) use of anticoagulants; X50.1XXA Overexertion from prolonged static or awkward postures, initial encounter
CPT/HCPCS: 73502; 93041; 96361; 96374; 99285; L1830

== ENCOUNTER 2021-06-03 18:00 | Inpatient (IN) | payer MEDICARE ==
[~2021-06-03] VITALS: Ht 188 cm; Wt 72.3 kg
[~2021-06-03 18:00] MED LIST changes: -DCS100C PO; +DOCU-239 PO
--- NOTE | 2021-06-03 18:47 | ED General ---
General Stated Complaint: PAIN ALL OVER/URINARY RETENTION Source of Information: Patient, Family Exam Limitations: No Limitations History of Present Illness Date Seen by Provider: Jun 03, 2021 Time Seen by Provider: 18:25 Initial Comments Patient is an 81-year-old male who presents to the emergency department today with a chief complaint of "pain all over", increasing generalized weakness, urinary difficulties bowel movement difficulties, increasing shortness of breath with oxygen requirement over the last couple of weeks and productive cough. Patient is status post hip revision surgery by Dr. Valdemar Hall at [facility] on May 13. His stepson states that he has not been able to come off oxygen since the surgery. They witnessed a steady decline in his ability to function. Prior to this he was independent, living at home and did not require oxygen. Patient denies any chest pain, fevers or chills. He has had increasing as stated productive cough. He is wearing at least 2 L of oxygen at all times. Son states that he takes aspirin daily as he did not want to be on Eliquis post surgery. He complains of near incontinence of stool and constant urge to urinate and defecate. Has been able to participate in physical therapy at a rehab facility which he is resided at for the last 2 weeks. Rates his generalized pain at a "6". All other review of systems reviewed and negative except as stated. Timing/Duration: Other (2.5 weeks) Severity: Moderate Associated Systoms: Cough, Malaise, Shortness of Air Allergies and Home Medications Allergies Coded Allergies: No Known Drug Allergies (Unverified , 01/23/12) Patient Home Medication List Home Medication List Reviewed: Yes Amiodarone HCl (Amiodarone HCl) 200 Mg Tablet, 200 MG PO DAILY Prescribed by: APRYL KAMINSKI on 02/25/211845 Apixaban (Eliquis) 5 Mg Tablet, 5 MG PO BID Prescribed by: APRYL KAMINSKI on 02/25/211845 Cholecalciferol (Vitamin D3) (Vitamin D3) 125 Mcg Tablet, 125 MCG PO DAILY, (Reported) Entered as Reported by: MI BONDS on 02/04/21 0849 Docusate Sodium (Dok) 100 Mg Capsule, 100 MG PO BID Prescribed by: APRYL KAMINSKI on 02/25/211845 Guaifenesin (Mucinex) 600 Mg Tab.er.12h, 600 MG PO BID, (Reported) Entered as Reported by: MI BONDS on 02/04/21 0849 Hydrocodone Bit/Acetaminophen (HYDROcodone/APAP 5 MG/325 MG TAB) 1 Tab Tab, 1 EA PO Q4H PRN for PAIN-SEVERE (8-10) Prescribed by: APRYL KAMINSKI on 02/25/211845 Ipratropium/Albuterol Sulfate (Iprat-Albut 0.5-3(2.5) mg/3 ml) 3 Ml Ampul.neb, 3 ML INH TID Prescribed by: APRYL KAMINSKI on 02/25/211845 Levothyroxine Sodium (Synthroid) 25 Mcg Tablet, 25 MCG PO DAILY Prescribed by: APRYL KAMINSKI on 02/26/21 1259 Pantoprazole Sodium (Pantoprazole Sodium) 40 Mg Tablet.dr, 40 MG PO DAILY Prescribed by: APRYL KAMINSKI on 02/25/211845 Polyethylene Glycol 3350 (Polyethylene Glycol 3350) 17 Gm Powd.pack, 17 GM PO HS Prescribed by: APRYL KAMINSKI on 02/25/211845 Sennosides/Docusate Sodium (Stool Softener-Laxative Tablet) 1 Each Tablet, 1 EA PO BID PRN for CONSTIPATION-6TH LINE Prescribed by: APRYL KAMINSKI on 02/25/211845 Review of Systems Review of Systems Constitutional: see HPI, malaise, weakness, weight loss EENTM: no symptoms reported Respiratory: cough, dyspnea on exertion, short of breath Cardiovascular: no symptoms reported Gastrointestinal: diarrhea Genitourinary: frequency Musculoskeletal: no symptoms reported Skin: no symptoms reported Psychiatric/Neurological: Anxiety, Depressed All Other Systems Reviewed Negative Unless Noted: Yes Past Ejwkekv-Oesonp-Awqlte Hx Immunizations Up To Date First/Initial COVID19 Vaccinat: 09/2020 Second COVID19 Vaccination Rufino: 10/2020 Past Medical History Surgery/Hospitalization HX: EYE SURGERY, HERNIA REPAIR, left hip Surgeries: Yes (hernia) Orthopedic Respiratory: Yes COPD Currently Using CPAP: No Currently Using BIPAP: No Cardiac: No Atrial Fibrillation Neurological: No Reproductive Disorders: No Genitourinary: No Gastrointestinal: No Musculoskeletal: No Endocrine: No HEENT: No Cancer: No Psychosocial: No Integumentary: No Blood Disorders: No Physical Exam Vital Signs Vital Signs - First Documented Capillary Refill : Height, Weight, BMI Height: 6'2.00" Weight: 186lbs. oz. 81.718729tn; 32.00 BMI Method: General Appearance: Mild Distress Eyes: Bilateral Eye Normal Inspection, Bilateral Eye PERRL, Bilateral Eye EOMI HEENT: PERRL/EOMI Neck: Normal Inspection Respiratory: Other (Coarse, wet, rhonchorous breath sounds bilaterally no wheezing. Patient is appearing to take somewhat short shallow breaths. Has a wet cough as well. Oxygen saturations 94 to 97% on 2 L per nasal cannula) Cardiovascular: Normal Peripheral Pulses Gastrointestinal: Normal Bowel Sounds, Soft, Tenderness (suprapubic tenderness) Extremity: Normal Range of Motion, Pedal Edema (RLE actually a little more swollen than left; neg Crow's) Neurologic/Psychiatric: Alert, Oriented x3, No Motor/Sensory Deficits, precast worker II- XII Norm as Tested, Depressed Affect Skin: Normal Color, Warm/Dry Focused Exam Lactate Level 06/03/21 18:35: Lactic Acid Level 0.98 Lactic Acid Level Laboratory Tests Test 06/03/21 18:35 Lactic Acid Level 0.98 MMOL/L (0.50-2.00) Progress/Results/Core Measures Suspected Sepsis SIRS Temperature: Pulse: Respiratory Rate: Laboratory Tests 06/03/21 18:35: White Blood Count 9.9 Blood Pressure / Mean: 06/03/21 18:35: Lactic Acid Level 0.98 Laboratory Tests 06/03/21 18:35: Creatinine 1.49H, INR Comment 1.1, Platelet Count 403H, Total Bilirubin 0.3 Results/Orders Lab Results Laboratory Tests Test 06/03/21 18:35 06/03/21 18:40 Range/Units White Blood Count 9.9 4.3-11.0 10^3/uL Red Blood Count 3.44 L 4.30-5.52 10^6/uL Hemoglobin 10.7 L 13.3-17.7 g/dL Hematocrit 34 L 40-54 % Mean Corpuscular Volume 98 80-99 fL Mean Corpuscular Hemoglobin 31 25-34 pg Mean Corpuscular Hemoglobin Concent 32 32-36 g/dL Red Cell Distribution Width 13.8 10.0-14.5 % Platelet Count 403 H 130-400 10^3/uL Mean Platelet Volume 9.6 9.0-12.2 fL Immature Granulocyte % (Auto) 1 % Neutrophils (%) (Auto) 74 42-75 % Lymphocytes (%) (Auto) 9 L 12-44 % Monocytes (%) (Auto) 12 0-12 % Eosinophils (%) (Auto) 3 0-10 % Basophils (%) (Auto) 1 0-10 % Neutrophils # (Auto) 7.3 1.8-7.8 10^3/uL Lymphocytes # (Auto) 0.9 L 1.0-4.0 10^3/uL Monocytes # (Auto) 1.2 H 0.0-1.0 10^3/uL Eosinophils # (Auto) 0.3 0.0-0.3 10^3/uL Basophils # (Auto) 0.1 0.0-0.1 10^3/uL Immature Granulocyte # (Auto) 0.1 0.0-0.1 10^3/uL Prothrombin Time 14.6 12.2-14.7 SEC INR Comment 1.1 0.8-1.4 Activated Partial Thromboplast Time 32 24-35 SEC D-Dimer 3.40 H 0.00-0.49 UG/ML Sodium Level 135 135-145 MMOL/L Potassium Level 4.5 3.6-5.0 MMOL/L Chloride Level 99 98-107 MMOL/L Carbon Dioxide Level 28 21-32 MMOL/L Anion Gap 8 5-14 MMOL/L Blood Urea Nitrogen 26 H 7-18 MG/DL Creatinine 1.49 H 0.60-1.30 MG/DL Estimat Glomerular Filtration Rate 45 BUN/Creatinine Ratio 17 Glucose Level 116 H 70-105 MG/DL Lactic Acid Level 0.98 0.50-2.00 MMOL/L Calcium Level 9.8 8.5-10.1 MG/DL Corrected Calcium 10.0 8.5-10.1 MG/DL Total Bilirubin 0.3 0.1-1.0 MG/DL Aspartate Amino Transf (AST/SGOT) 16 5-34 U/L Alanine Aminotransferase (ALT/SGPT) 11 0-55 U/L Alkaline Phosphatase 97 40-136 U/L B-Type Natriuretic Peptide 19.7 <100.0 PG/ML Total Protein 7.3 6.4-8.2 GM/DL Albumin 3.7 3.2-4.5 GM/DL Urine Color YELLOW Urine Clarity CLEAR Urine pH 6.0 5-9 Urine Specific Wisdom 1.025 H 1.016-1.022 Urine Protein NEGATIVE NEGATIVE Urine Glucose (UA) NEGATIVE NEGATIVE Urine Ketones NEGATIVE NEGATIVE Urine Nitrite NEGATIVE NEGATIVE Urine Bilirubin NEGATIVE NEGATIVE Urine Urobilinogen 0.2 < = 1.0 MG/DL Urine Leukocyte Esterase NEGATIVE NEGATIVE Urine RBC (Auto) NEGATIVE NEGATIVE Urine RBC 0-2 /HPF Urine WBC NONE /HPF Urine Squamous Epithelial Cells 0-2 /HPF Urine Crystals NONE /LPF Urine Bacteria NEGATIVE /HPF Urine Casts NONE /LPF Urine Mucus NEGATIVE /LPF Urine Culture Indicated CULTURE PENDING My Orders Orders - DARYA CHAPMAN MD Cbc With Automated Diff (06/03/21 18:38) Comprehensive Metabolic Panel (06/03/21 18:38) Blood Culture (06/03/21 18:38) Sputum Culture (06/03/21 18:38) Urinalysis (06/03/21 18:38) Urine Culture (06/03/21 18:38) Protime With Inr (06/03/21 18:38) Partial Thromboplastin Time (06/03/21 18:38) Chest 1 View, Ap/Pa Only (06/03/21 18:38) Ed Iv/Invasive Line Start (06/03/21 18:38) Ed Iv/Invasive Line Start (06/03/21 18:38) Vital Signs Adult Sepsis Patie Q15M (06/03/21 18:38) O2 (06/03/21 18:38) Remove Rings In Anticipation O (06/03/21 18:38) Lactic Acid Analyzer (06/03/21 18:38) Fibrin Degradation Products (06/03/21 18:38) Ekg Tracing (06/03/21 18:38) BNP (06/03/21 18:38) Ct Angio Chest W (06/03/21 19:24) Ns Iv 500 Ml (Sodium Chloride 0.9%) (06/03/21 19:30) Iohexol Injection (Omnipaque 350 Mg/Ml 1 (06/03/21 20:15) Received Contrast (Hold Metformin- Contr (06/03/21 20:15) Ns (Ivpb) (Sodium Chloride 0.9% Ivpb Bag (06/03/21 20:15) Medications Given in ED Current Medications Medications Dose Ordered Sig/Brayan Route Start Time Stop Time Status Last Admin Dose Admin Iohexol 100 ml ONCE ONCE IV 06/03/21 20:15 06/03/21 20:16 DC 06/03/21 20:05 66 ML Sodium Chloride 100 ml ONCE ONCE IV 06/03/21 20:15 06/03/21 20:16 DC 06/03/21 20:05 80 ML Vital Signs/I&O 06/03/21 06/03/21 06/03/21 18:18 18:18 18:18 Temp 36.6 Pulse 77 Resp 22 B/P (MAP) 147/72 (97) Pulse Ox 98 98 O2 Delivery Nasal Cannula Nasal Cannula Nasal Cannula O2 Flow Rate 2.00 2.00 2.00 Capillary Refill : Progress Note : Time: 18:23 Progress Note Discussed with Dr Nichols, states he believes we need to go ahead and get the CT angio to look for a possible PE. I did remind him of the patient's chronic kidney disease, GFR 45 today - will go ahead and do the angio. I plan on discussing with the family and the patient. 1940 discussed with patient and family (son - Coreyminh) agreeable with CT with contrast [address] Nichols we will go ahead and admit the patient to observation with failure to thrive, dyspnea. Will get bilateral venous Dopplers in the morning. Dr. Nichols recommended to go ahead and start him on some Lovenox at this time. He will take care of disposition tomorrow. ECG Initial ECG Impression Date: Jun 03, 2021 Initial ECG Impression Time: 18:48 Initial ECG Rate: 65 Initial ECG Rhythm: Normal Sinus Initial ECG Intervals OH 202 QRS 112 QTc 472 Initial ECG Impression: Normal Diagnostic Imaging Diagonstic Imaging: Xray Plain Films/CT/US/NM/MRI: chest Comments [facility], [place] NAME: PAULINE OVALLE [facility] REC#: [id number] PT STATUS: REG ER : 1940 PHYSICIAN: DARYA CHAPMAN MD ADMIT DATE: 06/03/21/ER Draft Date of Exam:06/03/21 CHEST 1 VIEW, AP/PA ONLY INDICATION: Sepsis COMPARISON: 01/31/2021 FINDINGS: Single frontal view of the chest demonstrates normal heart size and pulmonary vascularity. The lungs are well aerated and clear. No large pleural effusion or pneumothorax is seen. The visualized osseous structures show no acute abnormalities. IMPRESSION: 1. No acute cardiopulmonary process. Dictated on workstation # [id number] Dict: 06/03/211912 Trans: 06/03/211913 [facility] [id number] Interpreted by: CHARLOTTE MORTON MD Electronically signed by: [facility] [place], [place] NAME: PAULINE OVALLE [facility] REC#: [id number] PT STATUS: REG ER : 1940 PHYSICIAN: DARYA CHAPMAN MD ADMIT DATE: 06/03/21/ER Draft Date of Exam:06/03/21 CT ANGIO CHEST W PROCEDURE: CT angiography of the chest with contrast. TECHNIQUE: Multiple contiguous axial images were obtained through the chest after uneventful bolus administration of intravenous contrast. 3D reconstructed CTA MIP acquisitions were also performed. Auto Exposure Controls were utilized during the CT exam to meet ALARA standards for radiation dose reduction. INDICATION: Shortness of air. Hypoxia. Recent hip surgery. COMPARISON: None FINDINGS: There is no pulmonary embolus to the 1st subsegmental division of the pulmonary arteries. Note is made of aneurysmal dilatation of the ascending thoracic aorta as it measures 4.1 cm in diameter. There is a moderate calcified and noncalcified atherosclerosis seen throughout the thoracic aorta. By NASCET criteria, there is no focal significant stenosis. There is no evidence of dissection. Heart size is within normal limits. There is no large pericardial effusion. No pathologically enlarged or morphologically abnormal adenopathy is seen within the mediastinum, angelica, nor axilla. Evaluation of the lung isaac demonstrates background moderate emphysematous disease. There are innumerable micronodular densities within both lung bases, right greater than left. These are presumed to be infectious or inflammatory in nature. There is no large effusion or pneumothorax. Osseous structures show age-related degenerative changes. No lytic or blastic bony lesion is seen. Included portions of the upper abdomen are unremarkable. IMPRESSION: 1. No acute embolus to the 1st subsegmental division of the pulmonary arteries. 2. Aneurysmal dilatation of the ascending thoracic aorta with moderate diffuse calcified and noncalcified aortic atherosclerosis. 3. Advanced emphysematous disease. 4. Innumerable micronodular densities within both lung bases, right greater than left. Infectious or inflammatory etiology is favored. 3. A 6-month follow-up is recommended to ensure stability/appropriate resolution. Dictated on workstation # [id number] Dict: 06/03/212010 Trans: 06/03/212023 [facility] [id number] Interpreted by: CHARLOTTE MORTON MD Electronically signed by: Departure Communication (Admissions) Time/Spoke to Admitting Phy: 20:[address] Nichols Impression Primary Impression: Failure to thrive Qualified Codes: R62.7 - Adult failure to thrive Additional Impression: Dyspnea Qualified Codes: R06.00 - Dyspnea, unspecified Disposition: ADMITTED INPATIENT Condition: Stable Admissions Decision to Admit Reason: Admit from ER (General) Decision to Admit/Date: Jun 03, 2021 Time/Decision to Admit Time: 20:39 Departure-Patient Inst. Referrals: ERIK NICHOLS MD (PCP/Family) Primary Care Physician DARYA CHAPMAN MD Jun 03, 2021 18:47
[2021-06-03 18:49] LABS: BILIRUBIN,URINE NEGATIVE (NEGATIVE); CLARITY,URINE CLEAR; COLOR,URINE YELLOW; GLUCOSE, URINE (UA) NEGATIVE (NEGATIVE); KETONES,URINE NEGATIVE (NEGATIVE); LEUKOCYTE ESTERASE ,URINE NEGATIVE (NEGATIVE); NITRITE,URINE NEGATIVE (NEGATIVE); PROTEIN,URINE NEGATIVE (NEGATIVE)
[2021-06-03 18:49] LABS: BASOPHILS # (AUTO) 0.1 10^3/uL (0.0-0.1); BASOPHILS % (AUTO) 1 % (0-10); EOSINOPHILS # (AUTO) 0.3 10^3/uL (0.0-0.3); EOSINOPHILS % (AUTO) 3 % (0-10); HEMATOCRIT 34 % (40-54); HEMOGLOBIN 10.7 g/dL (13.3-17.7); LYMPHOCYTES # (AUTO) 0.9 10^3/uL (1.0-4.0); LYMPHOCYTES % (AUTO) 9 % (12-44); MEAN CORPUSCULAR HEMOGLOBIN 31 pg (25-34); MEAN CORPUSCULAR HGB CONC 32 g/dL (32-36); MEAN CORPUSCULAR VOLUME 98 fL (80-99); MEAN PLATELET VOLUME 9.6 fL (9.0-12.2); MONOCYTES # (AUTO) 1.2 10^3/uL (0.0-1.0); MONOCYTES % (AUTO) 12 % (0-12); NEUTROPHILS # (AUTO) 7.3 10^3/uL (1.8-7.8); NEUTROPHILS % (AUTO) 74 % (42-75); PLATELET COUNT 403 10^3/uL (130-400); WHITE BLOOD COUNT 9.9 10^3/uL (4.3-11.0)
[2021-06-03 18:57] LABS: BACTERIA,URINE NEGATIVE /HPF; RBC,URINE 0-2 /HPF; SQUAMOUS EPITHELIAL CELL,UR 0-2 /HPF
[2021-06-03 19:02] LABS: ALBUMIN 3.7 GM/DL (3.2-4.5); POTASSIUM 4.5 MMOL/L (3.6-5.0)
[2021-06-03 19:03] LABS: CALCIUM 9.8 MG/DL (8.5-10.1)
[2021-06-03 19:05] LABS: FIBRIN DEGRADATION PRODUCTS 3.4 UG/ML (0.00-0.49); INR 1.1 (0.8-1.4); PROTHROMBIN TIME PATIENT 14.6 SEC (12.2-14.7); TOTAL PROTEIN 7.3 GM/DL (6.4-8.2)
[2021-06-03 19:06] LABS: BILIRUBIN,TOTAL 0.3 MG/DL (0.1-1.0)
[2021-06-03 19:08] LABS: CREATININE SERUM 1.49 MG/DL (0.60-1.30)
--- NOTE | 2021-06-03 19:15 | Diagnostic Imaging Report ---
INDICATION: Sepsis COMPARISON: 01/31/2021 FINDINGS: Single frontal view of the chest demonstrates normal heart size and pulmonary vascularity. The lungs are well aerated and clear. No large pleural effusion or pneumothorax is seen. The visualized osseous structures show no acute abnormalities. IMPRESSION: 1. No acute cardiopulmonary process. Dictated by: Dictated on workstation # [id number]
[2021-06-03] MEDS ORDERED: NS IV 500 ML 500 ML IV SCH (19:30)
[2021-06-03] MEDS ORDERED: HOLD METFORMIN - RECEIVED CONTRAST 20 ML VIAL IV SCH (20:15)
[2021-06-03] MEDS ORDERED: IOHEXOL 350 MG/ML 100 ML (OMNIPAQUE 350) VIAL IV ONE (20:15)
[2021-06-03] MEDS ORDERED: NS 100 ML (IVPB) BAG IV ONE (20:15)
--- NOTE | 2021-06-03 20:25 | Diagnostic Imaging Report ---
PROCEDURE: CT angiography of the chest with contrast. TECHNIQUE: Multiple contiguous axial images were obtained through the chest after uneventful bolus administration of intravenous contrast. 3D reconstructed CTA MIP acquisitions were also performed. Auto Exposure Controls were utilized during the CT exam to meet ALARA standards for radiation dose reduction. INDICATION: Shortness of air. Hypoxia. Recent hip surgery. COMPARISON: None FINDINGS: There is no pulmonary embolus to the 1st subsegmental division of the pulmonary arteries. Note is made of aneurysmal dilatation of the ascending thoracic aorta as it measures 4.1 cm in diameter. There is a moderate calcified and noncalcified atherosclerosis seen throughout the thoracic aorta. By NASCET criteria, there is no focal significant stenosis. There is no evidence of dissection. Heart size is within normal limits. There is no large pericardial effusion. No pathologically enlarged or morphologically abnormal adenopathy is seen within the mediastinum, angelica, nor axilla. Evaluation of the lung isaac demonstrates background moderate emphysematous disease. There are innumerable micronodular densities within both lung bases, right greater than left. These are presumed to be infectious or inflammatory in nature. There is no large effusion or pneumothorax. Osseous structures show age-related degenerative changes. No lytic or blastic bony lesion is seen. Included portions of the upper abdomen are unremarkable. IMPRESSION: 1. No acute embolus to the 1st subsegmental division of the pulmonary arteries. 2. Aneurysmal dilatation of the ascending thoracic aorta with moderate diffuse calcified and noncalcified aortic atherosclerosis. 3. Advanced emphysematous disease. 4. Innumerable micronodular densities within both lung bases, right greater than left. Infectious or inflammatory etiology is favored. 3. A 6-month follow-up is recommended to ensure stability/appropriate resolution. Dictated by: Dictated on workstation # [id number]
[2021-06-03 22:22] VITALS: BP 181/79
[2021-06-03] MEDS ORDERED: CATHETER FLUSH 10 ML SYR IV PRN (22:45)
[2021-06-03] MEDS ORDERED: RT-ALBUTEROL SULF 2.5 MG/3 ML PRE-MIX VIAL INH PRN (23:00)
[2021-06-03] MEDS: ENOXAPARIN 80 MG/0.8 ML (LOVENOX) SYR SC SCH (23:38)
[2021-06-03] MEDS: guaiFENesin (MUCINEX) 600 MG TAB PO SCH (23:38)
[2021-06-04] VITALS (7 sets, daily range): BP systolic 107–159; BP diastolic 52–79
[2021-06-04] MEDS: RT-ALBUTEROL SULF 2.5 MG/3 ML PRE-MIX VIAL INH SCH ×2 (01:31→07:39)
[2021-06-04] MEDS: HYDROcodone/APAP 5 MG/325 MG (LORTAB) TAB PO PRN ×2 (03:38→22:38)
[2021-06-04] MEDS: CATHETER FLUSH 10 ML SYR IV SCH ×3 (05:04→20:42)
[2021-06-04] MEDS: PANTOPRAZOLE 40 MG (PROTONIX) TAB PO SCH (05:17)
[2021-06-04] MEDS ORDERED: LEVOTHYROXINE 25 MCG (LEVOTHROID) TAB PO SCH (06:30)
--- NOTE | 2021-06-04 08:19 | Diagnostic Imaging Report ---
PROCEDURE: US Venous Lower Ext Paul. TECHNIQUE: Multiple real-time grayscale images were obtained over the lower extremities in various projections, bilaterally. Additional duplex Doppler and color Doppler images were also obtained. INDICATION: Shortness of air, recent hip surgery. Evaluate for deep venous thrombosis Comparison: Non available. Findings: The bilateral common femoral, femoral and popliteal veins are patent by color doppler imaging and without DVT. Visualized proximal aspects of the greater saphenous, deep femoral, posterior tibial and peroneal veins are also patent. All of the evaluated deep venous structures demonstrate normal compressibility and waveform augmentation where applicable. Impression: No deep venous thrombosis in either of the lower extremities. Dictated by: Dictated on workstation # [id number]
[2021-06-04] MEDS: ENOXAPARIN 80 MG/0.8 ML (LOVENOX) SYR SC SCH (09:20)
[2021-06-04] MEDS: guaiFENesin (MUCINEX) 600 MG TAB PO SCH ×2 (09:20→20:20)
[2021-06-04 10:30] LABS: HEMATOCRIT 33 % (40-54); HEMOGLOBIN 10.6 g/dL (13.3-17.7); MEAN CORPUSCULAR HEMOGLOBIN 31 pg (25-34); MEAN CORPUSCULAR HGB CONC 32 g/dL (32-36); MEAN CORPUSCULAR VOLUME 98 fL (80-99); MEAN PLATELET VOLUME 9.2 fL (9.0-12.2); PLATELET COUNT 372 10^3/uL (130-400); WHITE BLOOD COUNT 11.3 10^3/uL (4.3-11.0)
[2021-06-04] MEDS ORDERED: POLY17PO6 PO (10:36)
[2021-06-04] MEDS ORDERED: DOCU100C37 PO ×2 (10:36)
[2021-06-04] MEDS ORDERED: ACET-2267 PO (10:36)
[2021-06-04] MEDS ORDERED: IPRA3AMP31 NEB ×2 (10:36)
[2021-06-04] MEDS ORDERED: ASPI-1238 PO (10:36)
[2021-06-04] MEDS ORDERED: SENN-109 PO (10:36)
[2021-06-04] MEDS ORDERED: AMIO200T6 PO (10:36)
[2021-06-04] MEDS ORDERED: PANT40TA52 PO (10:36)
[2021-06-04 10:46] LABS: POTASSIUM 4.6 MMOL/L (3.6-5.0)
[2021-06-04 10:47] LABS: CALCIUM 9.9 MG/DL (8.5-10.1)
[2021-06-04 10:52] LABS: CREATININE SERUM 2.04 MG/DL (0.60-1.30)
--- NOTE | 2021-06-04 10:59 | Physical Therapy Evaluation ---
PT Evaluation-General Medical Diagnosis Admission Date Jun 03, 2021 at 21:42 Medical Diagnosis: failure to thrive/dyspnea Onset Date: Jun 03, 2021 Therapy Diagnosis Therapy Diagnosis: debility/weakness Height/Weight Height (Feet): 6 Height (Inches): 2.00 Weight (Pounds): 186 Precautions Precautions/Isolations: Fall Prevention, Standard Precautions Weight Bear Status Right Lower Extremity: Right Full Weight Bearing Left Lower Extremity: Left Weight Bearing/Tolerated Referral Physician: Colton Reason for Referral: Evaluation/Treatment Medical History Pertinent Medical History: Atrial Fib, COPD (2L at home), Neuropathy Additional Medical History left hip revision x 2 due (most recent 05/13/21) Current History ER secondary to "pain all over" Reviewed History: Yes Social History Home: Assisted Living Prior Prior Level of Function SCALE: Activities may be completed with or without assistive devices. 6-Ffolcdelaq-fsbbsah completes the activity by him/herself with no assistance from a helper. 5-Set-up or Clean-up Assistance-helper sets up or cleans up; patient completes activity. [place] assists only prior to or following the activity. 4-Supervision or Touching Assistance-helper provides verbal cues and/or touching/steadying and/or contact guard assistance as patient completes activity. Assistance may be provided throughout the activity or intermittently. 3-Partial/Moderate Assistance-helper does LESS THAN HALF the effort. [place] lifts, holds or supports trunk or limbs, but provides less than half the effort. 2-Substantial/Maximal Assistance-helper does MORE THAN HALF the effort. [place] lifts or holds trunk or limbs and provides more than half the effort. 6-Eiozardlf-qpvkoq does ALL the effort. Patient does none of the effort to complete the activity. Or, the assistance of 2 or more helpers is required for the patient to complete the activity. If activity was not attempted, code reason: 7-Patient Refused. 9-Not Applicable-not attempted and the patient did not perform the activity before the current illness, exacerbation or injury. 10-Not Attempted due to Environmental Limitations-(lack of equipment, weather restraints, etc.). 88-Not Attempted due to Medical Conditions or Safety Concerns. Bed Mobility: 6 Transfers (B,C,W/C): 6 Gait: 6 Stairs: 9 Wheelchair Mobility: 9 Indoor Mobility (Ambulation): Independent Stairs: Not Applicalbe Prior Devices Use: Walker PT Evaluation-Current Subjective Patient agrees to PT. Does perseverate on inability to urinate. Physician and nursing aware. Pain Numeric Pain Scale: 0-No Pain Location: No Pain Reported Objective Patient Orientation: Person, Time Attachments: Oxygen (2L) ROM/Strength ROM Lower Extremities left hip precautions/right LE WFL Strength Lower Extremities 4/5 grossly bilateral LE Integumentary/Posture Integumentary refer to nursing notes Bowel Incontinence: No Bladder Incontinence: No Posture WFL Neuromuscular (Tone, Coordination, Reflexes) grossly intact Sensory Vision: Functional Hearing: Functional Sensation Right Lower Extremit: Impaired Sensation Left Lower Extremity: Impaired Transfers Roll Left to Right (QC): 4 (SBA) Sit to Lying (QC): 4 (SBA) Lying to Sitting/Side of Bed(Q: 4 (SBA) Sit to Stand (QC): 4 (SBA) Chair/Nox-wy-Waukt Xfer(QC): 4 (SBA) Gait Does the Patient Walk?: Yes Mode of Locomotion: Walk Anticipated Mode of Locomotion: Walk Walk 10 feet (QC): 4 (SBA) Walk 50 ft with 2 Turns(QC): 4 (SBA) Walk 150 ft (QC): 4 (SBA) Distance: 150' in room Gait Assistive Device: FWW Comments/Gait Description safe and functional with no deviation Wheelchair Training Does the Pt Use a Wheelchair?: No Balance Sitting Static: Normal Sitting Dynamic: Normal Standing Static: Normal Standing Dynamic: Normal Picking up an Object (QC): 88 (will require a assemblies and installations inspector due to left hip precautions) Treatment bilateral LE standing exercises 20 reps each of marching, adduction, hip extension, hip flexion and toe raises Assessment/Needs 81 y.o. male, will be seen short term by skilled PT to address functional strength and mobility to improve current LOF to safely return to AL at maximum LOF. Rehab Potential: Fair PT Tractor Driver Goals Skilled Nursing Goals PT Tractor Driver Goals Time Frame: Jun 15, 2021 Roll Left & Right (QC): 6 Sit to Lying (QC): 6 Lying-Sitting on Side/Bed(QC): 6 Sit to Stand (QC): 6 Chair/Aax-sp-Ttnyk Xfer(QC): 6 Toilet Transfer (QC): 6 Walk 10 feet (QC): 6 Walk 50ft with 2 Turns (QC): 6 Walk 150 ft (QC): 6 PT Plan Treatment/Plan Treatment Plan: Continue Plan of Care Treatment Plan: Bed Mobility, Education, Functional Activity Molly, Functional Strength, Gait, Safety, Therapeutic Exercise, Transfers Treatment Duration: Jun 15, 2021 Frequency: 6 times per week Estimated Hrs Per Day: .25 hour per day Time/GCodes Time In: 1015 Time Out: 1043 Total Billed Treatment Time: 28 Total Billed Treatment 1 visit EVModC 15 min EX 13 min SHABBIR HOWARD PT Jun 04, 2021 10:59
[2021-06-04] MEDS ORDERED: ENOXAPARIN 40 MG/0.4 ML (LOVENOX) SYR SQ SCH (11:00)
[2021-06-04] MEDS ORDERED: DOCUSATE SODIUM 100 MG (COLACE) CAP PO PRN (11:00)
[2021-06-04] MEDS ORDERED: SENNA W/DOCUSATE (SENOKOT S) TABLET PO PRN (11:00)
[2021-06-04] MEDS ORDERED: polyethylene glycoL POWDER 17 GM (MIRALAX) PACK PO PRN (11:00)
[2021-06-04] MEDS ORDERED: ACETAMINOPHEN 500 MG TAB (TYLENOL) PO PRN (11:00)
--- NOTE | 2021-06-04 11:00 | History & Physical-Hospitalist ---
History of Present Illness HPI/Chief Complaint Is an 81-year-old male with past medical history of atrial fibrillation who is declined anticoagulation, recent hip fracture with multiple revisions most recently on May 13, urinary retention, hypothyroidism who presented to the emergency department due to generalized weakness and urinary retention. At the time of my exam he is distracted by discomfort from a full bladder. He has been unable to urinate all night and refused a Gunderson catheter earlier today. He would like to attempt to stand and urinate instead. He states this has been going on for a while and is hoping there is a "miracle pill" that will fix him. We discussed the importance of emptying his bladder and need for urology consult to which she consents. I did call and speak with his yingon who is a local physician Dr. Rankin who states that last night patient was even delirious which she presumed was due to retention. He also states that he has been on oxygen since his most recent surgery 3 weeks ago and was coughing up brown mucus yesterday and is concerned that he is mucous plugging. Source: patient Date Seen 06/04/21 Time Seen by a Provider: 10:52 Attending Physician Erik Nichols MD PCP Erik Nichols MD Referring Physician Date of Admission Jun 03, 2021 at 21:42 Home Medications & Allergies Home Medications Reviewed patient Home Medication Reconciliation performed by pharmacy medication reconciliations recreation technician and/or nursing. Patients Allergies have been reviewed. Allergies Allergies Coded Allergies No Known Drug Allergies (Unverified01/23/12) Past Lseggsz-Kiypff-Klixfb Hx Patient Social History Employed/Student: retired Tobacco Use?: Yes Tobacco type used: Pipe Smoking Status: Former Smoker Smokeless Tobacco Frequency: Never a User Use of E-Cig and/or Vaping dev: No Substance use?: No Alcohol Use?: No Pt feels they are or have been: No Immunizations Up To Date First/Initial COVID19 Vaccinat: 09/2020 Second COVID19 Vaccination Rufino: 10/2020 Tetanus Booster (TDap): Unknown Hepatitis A: No Hepatitis B: No Current Status Advance Directives: Unable to obtain Communicates: Verbally Primary Language: Upper Sorbian Preferred Spoken Language: Upper Sorbian Is interpretation needed?: No Sensory deficits: Vision impairment Past Medical History Surgeries: Orthopedic COPD Currently Using CPAP: No Currently Using BIPAP: No Atrial Fibrillation Prostate Problems, Neurogenic Bladder (urinary retention) Blood Disorders: No Family Medical History Reviewed Nursing Family Hx No Pertinent Family Hx Review of Systems Constitutional: No chills, No fever; malaise EENTM: no symptoms reported Respiratory: short of breath, other (increased oxygen need recently) Cardiovascular: no symptoms reported Gastrointestinal: abdominal pain Genitourinary: hesitancy, incontinence (urge) Musculoskeletal: joint pain Skin: no symptoms reported Psychiatric/Neurological: No Symptoms Reported Physical Exam Physical Exam Vital Signs Vital Signs - First Documented Capillary Refill : Less Than 3 Seconds Height, Weight, BMI Height: 6'2.00" Weight: 186lbs. oz. 81.159477vb; 20.45 BMI Method: General Appearance: No Apparent Distress, Thin HEENT: PERRL/EOMI, Moist Mucous Membranes Neck: Normal Inspection, Supple Respiratory: No Accessory Muscle Use, Decreased Breath Sounds, Other (on 2lpm) Cardiovascular: Regular Rate, Rhythm, No Murmur Gastrointestinal: Normal Bowel Sounds, Non Tender, Soft Extremity: Normal Capillary Refill, No Calf Tenderness, No Pedal Edema Neurologic/Psychiatric: Alert, Oriented x3, Normal Mood/Affect Skin: Normal Color, Warm/Dry Results Results/Procedures Labs Laboratory Tests 06/03/21 18:35 06/04/21 10:20 Patient resulted labs reviewed. Imaging: Reviewed Imaging Report Imaging [facility] [place], [place] NAME: PAULINE OVALLE [facility] REC#: [id number] PT STATUS: ADM Dexter : 1940 PHYSICIAN: DARYA CHAPMAN MD ADMIT DATE: 06/03/21 Signed Date of Exam:06/03/21 CHEST 1 VIEW, AP/PA ONLY INDICATION: Sepsis COMPARISON: 01/31/2021 FINDINGS: Single frontal view of the chest demonstrates normal heart size and pulmonary vascularity. The lungs are well aerated and clear. No large pleural effusion or pneumothorax is seen. The visualized osseous structures show no acute abnormalities. IMPRESSION: 1. No acute cardiopulmonary process. Dictated by: Dictated on workstation # [id number] Dict: 06/03/21 1913 Trans: 06/04/21 0817 [facility] [id number] Interpreted by: CHARLOTTE MORTON MD Electronically signed by: CHARLOTTE MORTON MD 06/04/21 0817 [facility] [place], [place] NAME: PAULINE OVALLE [facility] REC#: [id number] PT STATUS: ADM Dexter : 1940 PHYSICIAN: DARYA CHAPMAN MD ADMIT DATE: 06/03/21 Signed Date of Exam:06/03/21 CT ANGIO CHEST W PROCEDURE: CT angiography of the chest with contrast. TECHNIQUE: Multiple contiguous axial images were obtained through the chest after uneventful bolus administration of intravenous contrast. 3D reconstructed CTA MIP acquisitions were also performed. Auto Exposure Controls were utilized during the CT exam to meet ALARA standards for radiation dose reduction. INDICATION: Shortness of air. Hypoxia. Recent hip surgery. COMPARISON: None FINDINGS: There is no pulmonary embolus to the 1st subsegmental division of the pulmonary arteries. Note is made of aneurysmal dilatation of the ascending thoracic aorta as it measures 4.1 cm in diameter. There is a moderate calcified and noncalcified atherosclerosis seen throughout the thoracic aorta. By NASCET criteria, there is no focal significant stenosis. There is no evidence of dissection. Heart size is within normal limits. There is no large pericardial effusion. No pathologically enlarged or morphologically abnormal adenopathy is seen within the mediastinum, angelica, nor axilla. Evaluation of the lung isaac demonstrates background moderate emphysematous disease. There are innumerable micronodular densities within both lung bases, right greater than left. These are presumed to be infectious or inflammatory in nature. There is no large effusion or pneumothorax. Osseous structures show age-related degenerative changes. No lytic or blastic bony lesion is seen. Included portions of the upper abdomen are unremarkable. IMPRESSION: 1. No acute embolus to the 1st subsegmental division of the pulmonary arteries. 2. Aneurysmal dilatation of the ascending thoracic aorta with moderate diffuse calcified and noncalcified aortic atherosclerosis. 3. Advanced emphysematous disease. 4. Innumerable micronodular densities within both lung bases, right greater than left. Infectious or inflammatory etiology is favored. 3. A 6-month follow-up is recommended to ensure stability/appropriate resolution. Dictated by: Dictated on workstation # [id number] Dict: 06/03/212010 Trans: 06/04/21817 [facility] [id number] Interpreted by: CHARLOTTE MORTON MD Electronically signed by: CHARLOTTE MORTON MD 06/04/21817 [facility] [place], [place] NAME: PAULINE OVALLE [facility] REC#: [id number] PT STATUS: ADM Dexter : 1940 PHYSICIAN: ERIK NICHOLS MD ADMIT DATE: 06/03/21 Signed Date of Exam:06/04/21 US VENOUS LOWER EXT OMAR PROCEDURE: US Venous Lower Ext Omar. TECHNIQUE: Multiple real-time grayscale images were obtained over the lower extremities in various projections, bilaterally. Additional duplex Doppler and color Doppler images were also obtained. INDICATION: Shortness of air, recent hip surgery. Evaluate for deep venous thrombosis Comparison: Non available. Findings: The bilateral common femoral, femoral and popliteal veins are patent by color doppler imaging and without DVT. Visualized proximal aspects of the greater saphenous, deep femoral, posterior tibial and peroneal veins are also patent. All of the evaluated deep venous structures demonstrate normal compressibility and waveform augmentation where applicable. Impression: No deep venous thrombosis in either of the lower extremities. Dictated by: Dictated on workstation # [id number] Dict: 06/04/21816 Trans: 06/04/21817 [facility] [id number] Interpreted by: SERGIO HUFFMAN MD Electronically signed by: SERGIO HUFFMAN MD 06/04/21817 Assessment/Plan Admission Diagnosis Failure to thrive Urinary retention Admission Status: Observation Assessment and Plan Failure to thrive Urinary rentetion s/p Hip surgery on 05/13 at [place] CKD has had a 15lb weight loss documented here in 1 month PT/OT dietary consult for nutrition eval urology consulted due to retention and his refusal of a catheter for over 500ml on bladder scan, discussed with Dr Moya, appreciate recommendations Check labs today COPD h/o histoplasmosis On 2lpm CTA negative for PE as well as dopplers of Lower extremities Stepson requests possible bronch due to sputum production, I discussed with Dr García who will review CT and see patient, appreciate recs a-fib Only on Amiodarone at this time, currently in sinus rhythm ER note states patient does not want to be on Eliquis- confirmed with Dr Rankin that patient refuses Eliquis Appears to follow with Dr Roque DVT ppx: Lovenox Diagnosis/Problems Diagnosis/Problems (1) Failure to thrive Status: Acute Qualifiers: Failure to thrive age range: in adult Qualified Codes: R62.7 - Adult failure to thrive (2) Dyspnea Qualifiers: Dyspnea type: dyspnea on exertion Qualified Codes: R06.00 - Dyspnea, unspecified (3) LIMITATION OF ACTIVITIES DUE TO DISABILITY Status: Chronic (4) Urinary retention Status: Acute (5) A-fib Qualifiers: Atrial fibrillation type: paroxysmal Qualified Codes: I48.0 - Paroxysmal atrial fibrillation (6) COPD (chronic obstructive pulmonary disease) Qualifiers: COPD type: unspecified COPD Qualified Codes: J44.9 - Chronic obstructive pulmonary disease, unspecified (7) Weight loss Status: Acute RICARDO CLIFFORD MD Jun 04, 2021 11:00
--- NOTE | 2021-06-04 12:17 | Consultation - Surgery ---
FLORESITA THOMSON MED STUDENT 06/04/21 1217: History of Present Illness History of Present Illness Patient Consulted On(arleth/time) 06/04/21 12:11 Date Seen by Provider: Jun 04, 2021 Time Seen by Provider: 11:45 Reason for Visit: Gen Surg consult for possible bronchoscopy History of Present Illness 81 yo male who presented to the ED for urinary retention and SOA. Pt has hx of COPD, afib and CKD. Pt had hip surgery on May [address] Hall at [facility] and has required oxygen since. Pt states he has had a rough day and does not wish to speak to medical student. When asked if he would speak to Dr. Lima, general surgeon, the pt refused this as well. According to RN the pt has 600mL of urine trapped in bladder. RN stated the Coude placement attempt was futile. Urologist has been consulted in regards to this. Allergies and Home Medications Allergies Coded Allergies: No Known Drug Allergies (Unverified , 01/23/12) Patient Home Medication List Acetaminophen (Tylenol Extra Strength) 500 Mg Tablet, 1,000 MG PO Q8H PRN for PAIN-MILD (1-4), (Reported) Entered as Reported by: SANTO HARRIS on 06/04/21 103 Last Action: Continued Amiodarone HCl (Amiodarone HCl) 200 Mg Tablet, 200 MG PO DAILY, (Reported) Entered as Reported by: SANTO HARRIS on 06/04/211035 Last Action: Continued Aspirin (Aspirin EC) 81 Mg Tablet.dr, 81 MG PO BID, (Reported) Entered as Reported by: SANTO HARRIS on 06/04/21 103 Last Action: Continued Cholecalciferol (Vitamin D3) (Vitamin D3) 125 Mcg Tablet, 125 MCG PO DAILY, (Reported) Entered as Reported by: MI BONDS on 02/04/21 0849 Last Action: Continued Docusate Sodium (Docusate Sodium) 100 Mg Capsule, 100 MG PO 2100, (Reported) Entered as Reported by: SANTO HARRIS on 06/04/21 103 Last Action: Continued Docusate Sodium (Docusate Sodium) 100 Mg Capsule, 100 MG PO BID PRN for CONSTIPATION-1ST LINE, (Reported) Entered as Reported by: SANTO HARRIS on 06/04/21 103 Last Action: Continued Guaifenesin (Mucinex) 600 Mg Tab.er.12h, 600 MG PO BID, (Reported) Entered as Reported by: MI BONDS on 02/04/21 0849 Last Action: Continued Ipratropium/Albuterol Sulfate (Iprat-Albut 0.5-3(2.5) mg/3 ml) 3 Ml Ampul.neb, 3 ML NEB TID, (Reported) Entered as Reported by: SANTO HARRIS on 06/04/21 103 Last Action: Continued Ipratropium/Albuterol Sulfate (Iprat-Albut 0.5-3(2.5) mg/3 ml) 3 Ml Ampul.neb, 3 ML NEB Q4H PRN for SHORTNESS OF BREATH, (Reported) Entered as Reported by: SANTO HARRIS on 06/04/211035 Last Action: Continued Pantoprazole Sodium (Pantoprazole Sodium) 40 Mg Tablet.dr, 40 MG PO DAILY, (Reported) Entered as Reported by: SANTO HARRIS on 06/04/211035 Last Action: Continued Polyethylene Glycol 3350 (Miralax) 17 Gm Powd.pack, 17 GM PO DAILY PRN for CONS TIPATION-2ND LINE, (Reported) Entered as Reported by: SANTO HARRIS on 06/04/211035 Last Action: Continued Sennosides/Docusate Sodium (Senna-S Tablet) 1 Each Tablet, 1 EACH PO BID PRN for CONSTIPATION-6TH LINE, (Reported) Entered as Reported by: SANTO HARRIS on 06/04/211035 Last Action: Continued Discontinued Medications Amiodarone HCl (Amiodarone HCl) 200 Mg Tablet, 200 MG PO DAILY Discontinued Reason: No Longer Taking Prescribed by: APRYL KAMINSKI on 02/25/211845 Last Action: Discontinued Apixaban (Eliquis) 5 Mg Tablet, 5 MG PO BID Discontinued Reason: No Longer Taking Prescribed by: APRYL KAMINSKI on 02/25/211845 Last Action: Discontinued Docusate Sodium (Dok) 100 Mg Capsule, 100 MG PO BID Discontinued Reason: No Longer Taking Prescribed by: APRYL KAMINSKI on 02/25/211845 Last Action: Discontinued Hydrocodone Bit/Acetaminophen (HYDROcodone/APAP 5 MG/325 MG TAB) 1 Tab Tab, 1 EA PO Q4H PRN for PAIN-SEVERE (8-10) Discontinued Reason: No Longer Taking Prescribed by: PARYL KAMINSKI on 02/25/211845 Last Action: Discontinued Ipratropium/Albuterol Sulfate (Iprat-Albut 0.5-3(2.5) mg/3 ml) 3 Ml Ampul.neb, 3 ML INH TID Discontinued Reason: No Longer Taking Prescribed by: APRYL KAMINSKI on 02/25/211845 Last Action: Discontinued Levothyroxine Sodium (Synthroid) 25 Mcg Tablet, 25 MCG PO DAILY Discontinued Reason: No Longer Taking Prescribed by: APRYL KAMINSKI on 02/26/21 1259 Last Action: Discontinued Pantoprazole Sodium (Pantoprazole Sodium) 40 Mg Tablet.dr, 40 MG PO DAILY Discontinued Reason: No Longer Taking Prescribed by: APRYL KAMINSKI on 02/25/211845 Last Action: Discontinued Polyethylene Glycol 3350 (Polyethylene Glycol 3350) 17 Gm Powd.pack, 17 GM PO HS Discontinued Reason: No Longer Taking Prescribed by: APRYL KAMINSKI on 02/25/211845 Last Action: Discontinued Sennosides/Docusate Sodium (Stool Softener-Laxative Tablet) 1 Each Tablet, 1 EA PO BID PRN for CONSTIPATION-6TH LINE Discontinued Reason: No Longer Taking Prescribed by: APRYL KAMINSKI on 02/25/211845 Last Action: Discontinued Past Qmxenmf-Gaskgk-Zcmise Hx Patient Social History Smoking Status: Former Smoker Former Smoker, Quit: Jan 31, 1999 2nd Hand Smoke Exposure: No Recent Hopitalizations: Yes Alcohol Use?: No Have you traveled recently?: No Surgeries History of Surgeries: Yes (hernia) Surgeries: Orthopedic Respiratory History of Respiratory Disorde: Yes Respiratory Disorders: COPD Cardiovascular History of Cardiac Disorders: No Cardiac Disorders: Atrial Fibrillation Neurological History of Neurological Disord: No Reproductive System Hx Reproductive Disorders: No Genitourinary History of Genitourinary Disor: No Genitourinary Disorders: Prostate Problems, Neurogenic Bladder (urinary retention) Gastrointestinal History of Gastrointestinal Di: No Musculoskeletal History of Musculoskeletal Dis: No Endocrine History of Endocrine Disorders: No HEENT History of HEENT Disorders: No Cancer History of Cancer: No Psychosocial History of Psychiatric Problem: No Integumentary History of Skin or Integumenta: No Blood Transfusions History of Blood Disorders: No Family Medical History Significant Family History: No Pertinent Family Hx Review of Systems-General ROS-Unable to Obtain: Pt refused Physical Exam-General Problems Physical Exam Vital Signs Vital Signs - First Documented Capillary Refill : Less Than 3 Seconds Comments Pt refused exam Data Review Labs Laboratory Tests 06/03/21 18:35: White Blood Count 9.9, Red Blood Count 3.44L, Hemoglobin 10.7L, Hematocrit 34L, Mean Corpuscular Volume 98, Mean Corpuscular Hemoglobin 31, Mean Corpuscular Hemoglobin Concent 32, Red Cell Distribution Width 13.8, Platelet Count 403H, Mean Platelet Volume 9.6, Immature Granulocyte % (Auto) 1, Neutrophils (%) (Auto) 74, Lymphocytes (%) (Auto) 9L, Monocytes (%) (Auto) 12, Eosinophils (%) (Auto) 3, Basophils (%) (Auto) 1, Neutrophils # (Auto) 7.3, Lymphocytes # (Auto) 0.9L, Monocytes # (Auto) 1.2H, Eosinophils # (Auto) 0.3, Basophils # (Auto) 0.1, Immature Granulocyte # (Auto) 0.1, Prothrombin Time 14.6, INR Comment 1.1, Activated Partial Thromboplast Time 32, D-Dimer 3.40H, Sodium Level 135, Pot assium Level 4.5, Chloride Level 99, Carbon Dioxide Level 28, Anion Gap 8, Blood Urea Nitrogen 26H, Creatinine 1.49H, Estimat Glomerular Filtration Rate 45, BUN/Creatinine Ratio 17, Glucose Level 116H, Lactic Acid Level 0.98, Calcium Level 9.8, Corrected Calcium 10.0, Total Bilirubin 0.3, Aspartate Amino Transf (AST/SGOT) 16, Alanine Aminotransferase (ALT/SGPT) 11, Alkaline Phosphatase 97, B-Type Natriuretic Peptide 19.7, Total Protein 7.3, Albumin 3.7 06/03/21 18:40: Urine Color YELLOW, Urine Clarity CLEAR, Urine pH 6.0, Urine Specific [place] 1.025H, Urine Protein NEGATIVE, Urine Glucose (UA) NEGATIVE, Urine Ketones NEGATIVE, Urine Nitrite NEGATIVE, Urine Bilirubin NEGATIVE, Urine Urobilinogen 0.2, Urine Leukocyte Esterase NEGATIVE, Urine RBC (Auto) NEGATIVE, Urine RBC 0- 2, Urine WBC NONE, Urine Squamous Epithelial Cells 0-2, Urine Crystals NONE, Urine Bacteria NEGATIVE, Urine Casts NONE, Urine Mucus NEGATIVE, Urine Culture Indicated CULTURE PENDING 06/04/21 10:20: White Blood Count 11.3H, Red Blood Count 3.40L, Hemoglobin 10.6L, Hematocrit 33L , Mean Corpuscular Volume 98, Mean Corpuscular Hemoglobin 31, Mean Corpuscular Hemoglobin Concent 32, Red Cell Distribution Width 13.8, Platelet Count 372, Mean Platelet Volume 9.2, Sodium Level 136, Potassium Level 4.6, Chloride Level 99, Carbon Dioxide Level 26, Anion Gap 11, Blood Urea Nitrogen 25H, Creatinine 2.04H, Estimat Glomerular Filtration Rate 31, BUN/Creatinine Ratio 12, Glucose Level 130H, Calcium Level 9.9, Thyroid Stimulating Hormone (TSH) 4.05 Assessment/Plan Assessment/Plan Admission Diagonsis Failure to thrive, urinary retention Assessment/Plan Failure to thrive Urinary retention COPD Afib CKD Failure to thrive Urinary retention -Dr. Moya consulted COPD Afib CKD Pt refused to be seen by medical student, so proper history and physical could not be performed. STORMY LIMA DO 06/04/218: History of Present Illness History of Present Illness History of Present Illness Consult requested by Dr. Segura for possible bronchoscopy. Patient is an 81-year-old male who presented with some generalized weakness and urinary retention to the emergency department. He is also having some shortness of air. Patient has history of hip surgery with revisions with the last one being within the last month. Patient has not been able to urinate and having difficulties. This is caused him some confusion but he had a suprapubic catheter placed and now he is feeling significantly better and able to answer questions. He earlier refused to discuss with medical student. Patient states that he just felt weak recently. He is also had some increasing shortness of air. He is occasionally having to cough up a little bit of brownish sputum. The shortness of air is primarily with some exertion. Patient was having abdominal discomfort until he had suprapubic catheter placed today. Patient feeling better now. Patient denies any nausea vomiting fever sweats chills or chest pain at this time. He had a chest x-ray performed yesterday which had no acute cardiopulmonary findings. He also had a CTA which did not show any evidence of a thrombus. There does not appear to have any mucous plugging. He does have some micronodules throughout both sides. Allergies and Home Medications Allergies Coded Allergies: No Known Drug Allergies (Unverified , 01/23/12) Patient Home Medication List Home Medication List Reviewed: Yes Acetaminophen (Tylenol Extra Strength) 500 Mg Tablet, 1,000 MG PO Q8H PRN for PAIN-MILD (1-4), (Reported) Entered as Reported by: SANTO HARRIS on 06/04/211035 Last Action: Continued Amiodarone HCl (Amiodarone HCl) 200 Mg Tablet, 200 MG PO DAILY, (Reported) Entered as Reported by: SANTO HARRIS on 06/04/211035 Last Action: Continued Aspirin (Aspirin EC) 81 Mg Tablet.dr, 81 MG PO BID, (Reported) Entered as Reported by: SANTO HARRIS on 06/04/211035 Last Action: Continued Cholecalciferol (Vitamin D3) (Vitamin D3) 125 Mcg Tablet, 125 MCG PO DAILY, (Reported) Entered as Reported by: MI BONDS on 02/04/21 0849 Last Action: Continued Docusate Sodium (Docusate Sodium) 100 Mg Capsule, 100 MG PO 2100, (Reported) Entered as Reported by: SANTO HARRIS on 06/04/211035 Last Action: Continued Docusate Sodium (Docusate Sodium) 100 Mg Capsule, 100 MG PO BID PRN for CONSTIPATION-1ST LINE, (Reported) Entered as Reported by: SANTO HARRIS on 06/04/211035 Last Action: Continued Guaifenesin (Mucinex) 600 Mg Tab.er.12h, 600 MG PO BID, (Reported) Entered as Reported by: MI BONDS on 02/04/21 0849 Last Action: Continued Ipratropium/Albuterol Sulfate (Iprat-Albut 0.5-3(2.5) mg/3 ml) 3 Ml Ampul.neb, 3 ML NEB TID, (Reported) Entered as Reported by: SANTO HARRIS on 06/04/211035 Last Action: Continued Ipratropium/Albuterol Sulfate (Iprat-Albut 0.5-3(2.5) mg/3 ml) 3 Ml Ampul.neb, 3 ML NEB Q4H PRN for SHORTNESS OF BREATH, (Reported) Entered as Reported by: SANTO HARRIS on 06/04/211035 Last Action: Continued Pantoprazole Sodium (Pantoprazole Sodium) 40 Mg Tablet.dr, 40 MG PO DAILY, (Reported) Entered as Reported by: SANTO HARRIS on 06/04/211035 Last Action: Continued Polyethylene Glycol 3350 (Miralax) 17 Gm Powd.pack, 17 GM PO DAILY PRN for CONSTIPATION-2ND LINE, (Reported) Entered as Reported by: SANTO HARRIS on 06/04/211035 Last Action: Continued Sennosides/Docusate Sodium (Senna-S Tablet) 1 Each Tablet, 1 EACH PO BID PRN for CONSTIPATION-6TH LINE, (Reported) Entered as Reported by: SANTO HARRIS on 06/04/211035 Last Action: Continued Discontinued Medications Amiodarone HCl (Amiodarone HCl) 200 Mg Tablet, 200 MG PO DAILY Discontinued Reason: No Longer Taking Prescribed by: APRYL KAMINSKI on 02/25/211845 Last Action: Discontinued Apixaban (Eliquis) 5 Mg Tablet, 5 MG PO BID Discontinued Reason: No Longer Taking Prescribed by: APRYL KAMINSKI on 02/25/211845 Last Action: Discontinued Docusate Sodium (Dok) 100 Mg Capsule, 100 MG PO BID Discontinued Reason: No Longer Taking Prescribed by: APRYL KAMINSKI on 02/25/211845 Last Action: Discontinued Hydrocodone Bit/Acetaminophen (HYDROcodone/APAP 5 MG/325 MG TAB) 1 Tab Tab, 1 EA PO Q4H PRN for PAIN-SEVERE (8-10) Discontinued Reason: No Longer Taking Prescribed by: APRYL KAMINSKI on 02/25/211845 Last Action: Discontinued Ipratropium/Albuterol Sulfate (Iprat-Albut 0.5-3(2.5) mg/3 ml) 3 Ml Ampul.neb, 3 ML INH TID Discontinued Reason: No Longer Taking Prescribed by: APRYL KAMINSKI on 02/25/211845 Last Action: Discontinued Levothyroxine Sodium (Synthroid) 25 Mcg Tablet, 25 MCG PO DAILY Discontinued Reason: No Longer Taking Prescribed by: APRYL KAMINSKI on 02/26/21 1259 Last Action: Discontinued Pantoprazole Sodium (Pantoprazole Sodium) 40 Mg Tablet.dr, 40 MG PO DAILY Discontinued Reason: No Longer Taking Prescribed by: APRYL KAMINSKI on 02/25/211845 Last Action: Discontinued Polyethylene Glycol 3350 (Polyethylene Glycol 3350) 17 Gm Powd.pack, 17 GM PO HS Discontinued Reason: No Longer Taking Prescribed by: APRYL KAMINSKI on 02/25/211845 Last Action: Discontinued Sennosides/Docusate Sodium (Stool Softener-Laxative Tablet) 1 Each Tablet, 1 EA PO BID PRN for CONSTIPATION-6TH LINE Discontinued Reason: No Longer Taking Prescribed by: APRYL KAMINSKI on 02/25/211845 Last Action: Discontinued Past Feujiyf-Xnmnbx-Uegkjm Hx Reviewed Nursing Assessment Reviewed/Agree w Nursing PMH: Yes Family Medical History Significant Family History: No Pertinent Family Hx Review of Systems-General Constitutional: No chills, No diaphoresis; weakness EENTM: No blurred vision, No double vision Respiratory: cough, dyspnea on exertion Cardiovascular: No chest pain, No palpitations Gastrointestinal: abdominal pain; No nausea, No vomiting Genitourinary: decreased output, pain Musculoskeletal: No back pain, No joint pain Skin: No change in color, No change in hair/nails Psychiatric/Neurological: Denies Anxiety, Denies Depressed, Denies Emotional Problems All Other Systems Reviewed Negative Unless Noted: Yes (Negative excepted noted.) Physical Exam-General Problems Physical Exam General Appearance: WD/WN, no apparent distress HEENT: PERRL/EOMI Neck: non-tender, supple Respiratory: chest non-tender, no respiratory distress, no accessory muscle use Cardiovascular: no JVD, irregularly irregular Gastrointestinal: non tender, soft, other (Suprapubic catheter) Rectal: deferred Back: no CVA tenderness, no vertebral tenderness Extremities: non-tender, no pedal edema Neurologic/Psychiatric: alert, normal mood/affect, oriented x 3 Skin: normal color, warm/dry Lymphatic: no adenopathy Assessment/Plan Assessment/Plan Assessment/Plan Failure to thrive Urinary retention COPD Cough c sputum Afib CKD Patient with urinary retention Dr. You was consulted and placed suprapubic catheter. Patient feeling significantly better after having suprapubic catheter in place. Patient with cough and some sputum production. The chest x-ray showed no cardiopulmonary process. The CTA of the chest did not demonstrate any mucous plugging but did have emphysematous changes throughout both lungs along with micronodules that will need followed up outpatient with primary care pr stephanie. I do not feel that at this time he would benefit from bronchoscopy. Would obtain sputum culture which is already ordered. Supervisory-Addendum Brief Verification & Attestation Participated in pt care: history, MDM, physical Personally performed: exam, history, MDM, supervision of care Care discussed with: Medical Student Procedures: n/a Results interpretation: Verified all documentation Verification and Attestation of Medical Student E/M Service A medical student performed and documented this service in my presence. I reviewed and verified all information documented by the medical student and made modifications to such information, when appropriate. I personally performed the physical exam and medical decision making. Stormy Lima, Jun 04, 2021,22:13 FLORESITA THOMSON MED STUDENT Jun 04, 2021 12:17 STORMY LIMA DO Jun 04, 2021 21:48
[2021-06-04] MEDS ORDERED: LIDOCAINE 1% INJ 20 ML 20 ML VIAL ONE (13:03)
[2021-06-04] MEDS ORDERED: fentaNYL INJ 100 MCG/2 ML AMP IVP PRN (13:15)
--- NOTE | 2021-06-04 13:31 | Occ Therapy Progress Note ---
Therapy Progress Note OT attempted tx x2. At first tx, nurse was in process of attempting to place catheter (1114) OT attempted again after lunch (1310), pt states he doesn't feel well and does not wish to do therapy at this time. OT educated pt on purpose and benefit of OT, he verbalized understanding but requests OT to begin tomorrow. OT will perform evaluation and initiate tx tomorrow per pt request. 1, refusal YULISSA SANCHEZ OT Jun 04, 2021 13:31
[2021-06-04] MEDS: RT-ALBUTEROL/IPRATROPIUM 3 ML (DUONEB) VIAL IH SCH ×2 (14:15→20:01)
[2021-06-04] MEDS: DOCUSATE SODIUM 100 MG (COLACE) CAP PO SCH (20:20)
[2021-06-04 20:25] LABS: BASOPHILS % (AUTO) 0 % (0-10); EOSINOPHILS % (AUTO) 0 % (0-10); HEMATOCRIT 33 % (40-54); HEMOGLOBIN 10.5 g/dL (13.3-17.7); LYMPHOCYTES # (AUTO) 0.7 10^3/uL (1.0-4.0); LYMPHOCYTES % (AUTO) 5 % (12-44); MEAN CORPUSCULAR HEMOGLOBIN 31 pg (25-34); MEAN CORPUSCULAR HGB CONC 32 g/dL (32-36); MEAN CORPUSCULAR VOLUME 99 fL (80-99); MEAN PLATELET VOLUME 9.4 fL (9.0-12.2); MONOCYTES # (AUTO) 1.1 10^3/uL (0.0-1.0); MONOCYTES % (AUTO) 8 % (0-12); NEUTROPHILS # (AUTO) 12.7 10^3/uL (1.8-7.8); NEUTROPHILS % (AUTO) 87 % (42-75); PLATELET COUNT 364 10^3/uL (130-400); WHITE BLOOD COUNT 14.6 10^3/uL (4.3-11.0)
[2021-06-04] MEDS: NS IV 1000 ML 1,000 ML IV SCH (20:42)
[2021-06-04] MEDS ORDERED: guaiFENesin (MUCINEX) 600 MG TAB PO SCH (21:00)
[2021-06-04] MEDS ORDERED: ASPIRIN E.C. 81 MG (ECOTRIN) TAB PO SCH (21:00)
[2021-06-04 21:21] LABS: LYMPHOCYTES % (MANUAL) 4 %; MONOCYTES % (MANUAL) 6 %; NEUTROPHILS % (MANUAL) 90 %; RBC MORPH NORMAL
--- NOTE | 2021-06-04 21:44 | CONSULTATION REPORT ---
DATE OF SERVICE: 06/04/2021 CONSULTATION AND PROCEDURE ATTENDING PHYSICIAN: Dr. Nichols and Dr. Dupree. SUMMARY: An 81-year-old white man admitted because of failure to thrive and weakness, history of what sounded like a urethral stricture with urethral dilatation several years ago back in [place]. He has not followed up with any urologist since. He has been having trouble urinating and a bladder scan showed 500 mL. An attempt to insert a catheter by the nursing staff was unsuccessful with some bleeding that stopped and then the bladder scan showed 600 mL. I interviewed the patient and essentially the information I got from him as above. IMPRESSION: Urinary retention, history of stricture and inability to insert a catheter. PLAN: Percutaneous suprapubic tube placement. Procedure was fully explained to the patient with the pros and cons, risks and complication. He fully understands and consented for it. CC: Dr. Rankin - requested, unable to deliver. CC: Dr. Dupree - requested, unable to deliver. Job ID: [id number] DocumentID: [id number] Dictated Date: 06/04/2021 17:19:14 Director Payment Date: 06/04/2021 21:42:58 Dictated By: ALEX GARRETT MD
[2021-06-05] VITALS (7 sets, daily range): BP systolic 97–126; BP diastolic 49–81
--- NOTE | 2021-06-05 01:42 | OPERATIVE REPORT ---
DATE OF SERVICE: 06/04/2021 PREOPERATIVE DIAGNOSIS: Urinary retention and urethral stricture with inability to insert a catheter. POSTOPERATIVE DIAGNOSIS: Urinary retention and urethral stricture with inability to insert a catheter. OPERATION PERFORMED: Insertion of percutaneous suprapubic tube. SURGEON: Alex Garrett MD. ANESTHESIA: Local. COMPLICATIONS: None. DESCRIPTION OF PROCEDURE: With the patient supine in his bed, the abdomen was prepped and draped in the usual sterile fashion. The bladder was felt and percussed distended with 600 mL and a bladder sonogram postvoid or no void. Two fingerbreadths above the symphysis pubis, I injected some local, made a small incision with a stab knife and using the Bard set and the described technique, I inserted the catheter into the bladder with no problem draining clear urine about 600 mL of that, inflated the balloon to 10 mL, secured the catheter with a 3-0 silk suture and applied dressing. The patient tolerated the procedure and anesthesia well and remained in his bed in stable condition. We gave him some fentanyl 25 mg IV prior to the procedure for sedation and pain control. PLAN: Later, the patient is going to need a cystoscopy and retrograde urethrogram and if he would like us to do that, will be happy to and we will manage accordingly. CC: Dr. Joon Campos - requested, unable to deliver. Job ID: [id number] DocumentID: [id number] Dictated Date: 06/04/2021 17:21:47 Inverter And Clipper Date: 06/04/2021 23:28:54 Dictated By: ALEX GARRETT MD
[2021-06-05] MEDS: RT-ALBUTEROL/IPRATROPIUM 3 ML (DUONEB) VIAL IH PRN (02:04)
[2021-06-05 05:17] LABS: HEMATOCRIT 30 % (40-54); HEMOGLOBIN 9.5 g/dL (13.3-17.7); MEAN CORPUSCULAR HEMOGLOBIN 31 pg (25-34); MEAN CORPUSCULAR HGB CONC 32 g/dL (32-36); MEAN CORPUSCULAR VOLUME 99 fL (80-99); MEAN PLATELET VOLUME 9.5 fL (9.0-12.2); PLATELET COUNT 336 10^3/uL (130-400); WHITE BLOOD COUNT 21.2 10^3/uL (4.3-11.0)
[2021-06-05 05:28] LABS: POTASSIUM 4.4 MMOL/L (3.6-5.0)
[2021-06-05 05:29] LABS: CALCIUM 9.4 MG/DL (8.5-10.1)
[2021-06-05 05:34] LABS: CREATININE SERUM 1.73 MG/DL (0.60-1.30)
[2021-06-05] MEDS: CATHETER FLUSH 10 ML SYR IV SCH ×3 (06:10→21:33)
[2021-06-05] MEDS: PANTOPRAZOLE 40 MG (PROTONIX) TAB PO SCH ×2 (06:16→06:17)
[2021-06-05] MEDS: NS IV 1000 ML 1,000 ML IV SCH ×2 (06:16→16:23)
[2021-06-05] MEDS: RT-ALBUTEROL/IPRATROPIUM 3 ML (DUONEB) VIAL IH SCH ×3 (08:55→20:07)
[2021-06-05] MEDS ORDERED: PANTOPRAZOLE 40 MG (PROTONIX) TAB PO SCH (09:00)
[2021-06-05] MEDS ORDERED: ENOXAPARIN 30 MG/0.3 ML (LOVENOX) SYR SQ SCH (09:00)
[2021-06-05] MEDS: VITAMIN D3 125 MCG (5,000 UNITS) CAPSULE PO SCH (09:07)
[2021-06-05] MEDS: cefTRIAXone 1,000 MG in WATER (STERILE) FOR INJECTION 10 ML IV SCH (09:07)
[2021-06-05] MEDS: fentaNYL INJ 100 MCG/2 ML AMP IVP PRN ×2 (09:07→09:37)
[2021-06-05] MEDS: guaiFENesin (MUCINEX) 600 MG TAB PO SCH ×2 (09:07→21:33)
[2021-06-05] MEDS: AMIODARONE 200 MG (CORDARONE) TAB PO SCH (09:07)
--- NOTE | 2021-06-05 09:13 | Progress Note - Hospitalist ---
Subjective HPI/CC On Admission Date Seen by Provider: Jun 05, 2021 Time Seen by Provider: 09:11 Is an 81-year-old male with past medical history of atrial fibrillation who is declined anticoagulation, recent hip fracture with multiple revisions most recently on May 13, urinary retention, hypothyroidism who presented to the emergency department due to generalized weakness and urinary retention. At the time of my exam he is distracted by discomfort from a full bladder. He has been unable to urinate all night and refused a [place] catheter earlier today. He would like to attempt to stand and urinate instead. He states this has been going on for a while and is hoping there is a "miracle pill" that will fix him. We discussed the importance of emptying his bladder and need for urology consult to which she consents. I did call and speak with his stepson who is a local physician Dr. Rankin who states that last night patient was even delirious which she presumed was due to retention. He also states that he has been on oxygen since his most recent surgery 3 weeks ago and was coughing up brown mucus yesterday and is concerned that he is mucous plugging. Subjective/Events-last exam Pt reports feeling "not worth a damn" today. Had had improvement yesterday after catheter but now has pain. Was made NPO by Dr Moya due to bleeding in catheter overnight. Patient's main complaint is is regards to being NPO as he would like more to drink and wants pain medication. Offered IV pain medication while NPO to which he agrees. He also would like a breathing treatment but thinks he cannot have one due to being NPO. Focused Exam Lactate Level 06/03/21 18:35: Lactic Acid Level 0.98 Objective Exam Vital Signs Vital Signs Date Time Temp Pulse Resp B/P (MAP) Pulse Ox O2 Delivery O2 Flow Rate FiO2 06/05/21 08:55 90 Nasal Cannula 2.00 06/05/21 07:20 37.4 76 18 109/56 (73) Capillary Refill : Less Than 3 Seconds General Appearance: No Apparent Distress, Chronically ill, Thin Respiratory: Lungs Clear, No Respiratory Distress Cardiovascular: Regular Rate, Rhythm, No Murmur Gastrointestinal: Normal Bowel Sounds, Non Tender, Soft Genital/Rectal: Other (suprapubic catheter in place with yellow urine in p) Neurologic/Psychiatric: Alert, Oriented x3 Results/Procedures Lab Laboratory Tests 06/04/21 10:20 06/04/21 20:15 06/05/21 05:00 Patient resulted labs reviewed. Imaging: Reviewed Imaging Report Assessment/Plan Assessment and Plan Assess & Plan/Chief Complaint Failure to thrive Urinary rentetion s/p Hip surgery on 05/13 at [place] CKD has had a 15lb weight loss documented here in 1 month PT/OT dietary consult for nutrition eval Urology consulted, appreciate recs- s/p SPT yesterday Hold ASA and Lovenox due to hematuria Starte Rocephin due to placement of catheter and elevated white count COPD h/o histoplasmosis On 2lpm CTA negative for PE as well as dopplers of Lower extremities Dr García saw yesterday and does not recommend bronch at this time Stable on 2lpm oxygen a-fib Only on Amiodarone at this time, currently in sinus rhythm ER note states patient does not want to be on Eliquis- confirmed with Dr Rankin that patient refuses Eliquis Appears to follow with Dr Roque DVT ppx: Lovenox Diagnosis/Problems Diagnosis/Problems (1) Failure to thrive Status: Acute Qualifiers: Failure to thrive age range: in adult Qualified Codes: R62.7 - Adult failure to thrive (2) Dyspnea Qualifiers: Dyspnea type: dyspnea on exertion Qualified Codes: R06.00 - Dyspnea, unspecified (3) LIMITATION OF ACTIVITIES DUE TO DISABILITY Status: Chronic (4) Urinary retention Status: Acute (5) A-fib Qualifiers: Atrial fibrillation type: paroxysmal Qualified Codes: I48.0 - Paroxysmal atrial fibrillation (6) COPD (chronic obstructive pulmonary disease) Qualifiers: COPD type: unspecified COPD Qualified Codes: J44.9 - Chronic obstructive pulmonary disease, unspecified (7) Weight loss Status: Acute RICARDO CLIFFORD MD Jun 05, 2021 09:13
--- NOTE | 2021-06-05 09:14 | Progress Note - Surgery ---
GINNAMEHNAZFLORESITA A MED STUDENT 06/05/21 0914: Subjective Date Seen by a Provider: Jun 05, 2021 Time Seen by a Provider: 09:00 Subjective/Events-last exam Pt up in bed this morning, stating he is in a lot of pain and does not wish to speak to anyone. Upon further questioning, he did state he has a lot of thick mucous production that varies in color depending on what he eats. Pt reports his pain is in his abdomen. After a few statements he reported he was in too much pain to talk anymore. Review of Systems Pulmonary: Dyspnea, Cough Focused Exam Lactate Level 06/03/21 18:35: Lactic Acid Level 0.98 Objective Exam Vital Signs Date Time Temp Pulse Resp B/P (MAP) Pulse Ox O2 Delivery O2 Flow Rate FiO2 06/05/21 08:55 90 Nasal Cannula 2.00 06/05/21 07:20 37.4 76 18 109/56 (73) 90 Nasal Cannula 2.00 06/05/21 04:27 37.3 73 18 103/49 (67) 90 Nasal Cannula 2.00 06/05/21 00:41 37.6 72 18 112/53 (72) 91 Nasal Cannula 2.00 06/04/21 22:37 80 20 132/65 (87) 96 Room Air 06/04/21 20:08 37.1 65 18 107/52 (70) 96 Nasal Cannula 2.00 06/04/21 20:02 92 Nasal Cannula 2.00 06/04/21 20:00 96 Nasal Cannula 2.00 06/04/21 15:34 36.4 68 20 120/57 (78) 95 Nasal Cannula 2.00 06/04/21 14:16 95 Nasal Cannula 2.00 06/04/21 11:13 36.3 62 18 146/68 (94) 94 Nasal Cannula 2.00 I & O 06/05/21 07:00 Intake Total 350 ml Output Total 3575 ml Balance -3225 ml Capillary Refill : Less Than 3 Seconds General Appearance: No Apparent Distress, Thin HEENT: PERRL/EOMI, Moist Mucous Membranes Neck: Normal Inspection, Supple Respiratory: No Accessory Muscle Use, Decreased Breath Sounds, Other (on 2lpm) Cardiovascular: Regular Rate, Rhythm, No JVD Gastrointestinal: soft, tenderness (diffuse), other (Suprapubic catheter) Extremity: Normal Capillary Refill, No Calf Tenderness, Pedal Edema (1+ pitting edema) Neurologic/Psychiatric: Alert, Oriented x3, Normal Mood/Affect Skin: Normal Color, Warm/Dry Results Lab Laboratory Tests 06/04/21 10:20: White Blood Count 11.3H, Red Blood Count 3.40L, Hemoglobin 10.6L, Hematocrit 33L , Mean Corpuscular Volume 98, Mean Corpuscular Hemoglobin 31, Mean Corpuscular Hemoglobin Concent 32, Red Cell Distribution Width 13.8, Platelet Count 372, Mean Platelet Volume 9.2, Sodium Level 136, Potassium Level 4.6, Chloride Level 99, Carbon Dioxide Level 26, Anion Gap 11, Blood Urea Nitrogen 25H, Creatinine 2.04H, Estimat Glomerular Filtration Rate 31, BUN/Creatinine Ratio 12, Glucose Level 130H, Calcium Level 9.9, Thyroid Stimulating Hormone (TSH) 4.05 06/04/21 20:15: White Blood Count 14.6H, Red Blood Count 3.36L, Hemoglobin 10.5L, Hematocrit 33L , Mean Corpuscular Volume 99, Mean Corpuscular Hemoglobin 31, Mean Corpuscular Hemoglobin Concent 32, Red Cell Distribution Width 13.9, Platelet Count 364, Mean Platelet Volume 9.4, Immature Granulocyte % (Auto) 1, Neutrophils (%) (Auto) 87H, Lymphocytes (%) (Auto) 5L, Monocytes (%) (Auto) 8, Eosinophils (%) (Auto) 0, Basophils (%) (Auto) 0, Neutrophils # (Auto) 12.7H, Lymphocytes # (Auto) 0.7L, Monocytes # (Auto) 1.1H, Eosinophils # (Auto) 0.0, Basophils # (Auto) 0.0, Immature Granulocyte # (Auto) 0.1, Neutrophils % (Manual) 90, Lymphocytes % (Manual) 4, Monocytes % (Manual) 6, Blood Morphology Comment NORMAL 06/05/21 05:00: White Blood Count 21.2H, Red Blood Count 3.04L, Hemoglobin 9.5L, Hematocrit 30L, Mean Corpuscular Volume 99, Mean Corpuscular Hemoglobin 31, Mean Corpuscular Hemoglobin Concent 32, Red Cell Distribution Width 13.9, Platelet Count 336, Mean Platelet Volume 9.5, Sodium Level 140, Potassium Level 4.4, Chloride Level 102, Carbon Dioxide Level 26, Anion Gap 12, Blood Urea Nitrogen 23H, Creatinine 1.73H, Estimat Glomerular Filtration Rate 38, BUN/Creatinine Ratio 13, Glucose Level 118H, Calcium Level 9.4 Microbiology 06/03/21 Blood Culture - Preliminary, Resulted No growth 06/03/21 Urine Culture - Final, Complete NO GROWTH Assessment/Plan Assessment/Plan Admission Diagonsis Failure to thrive Assessment/Plan Failure to thrive Urinary retention COPD Cough c sputum Afib CKD Patient with urinary retention Dr. Moya was consulted and placed suprapubic catheter yesterday. Patient not feeling any relief of abdominal pain today. Patient with cough and some sputum production, worse than yesterday. The chest x-ray yeserday showed no cardiopulmonary process. The CTA of the chest yesterday did not demonstrate any mucous plugging but did have emphysematous changes throughout both lungs along with micronodules that will need followed up outpatient with primary care provider. I do not feel that at this time he would benefit from bronchoscopy. Sputum culture pending. Pt's WBC continues to increase, ceftriaxone has been started by IM. STORMY GARCÍA DO 06/05/21 1355: Subjective Subjective/Events-last exam Patient feeling okay. No abdominal pain. Patient suprapubic catheter working. Patient breathing okay. Slight cough. Slight sputum. Denies n/v fever sweats chills shortness of breath or chest pain. WBC increased. Objective Exam General Appearance: No Apparent Distress HEENT: PERRL/EOMI, Moist Mucous Membranes Neck: Normal Inspection, Supple Respiratory: Chest Non Tender, No Accessory Muscle Use, No Respiratory Distress, Other (on 2lpm) Cardiovascular: Regular Rate, Rhythm, No JVD Gastrointestinal: soft, tenderness (slight lower abdomen around suprapubic), other (Suprapubic catheter) Extremity: Non Tender, No Calf Tenderness Neurologic/Psychiatric: Alert, Oriented x3, Normal Mood/Affect Skin: Normal Color, Warm/Dry Assessment/Plan Assessment/Plan Assessment/Plan Failure to thrive Urinary retention COPD Cough c sputum Afib CKD Patient with urinary retention Dr. Moya was consulted and placed suprapubic catheter yesterday. Patient with cough and some sputum. The repeat chest x-ray today showed no cardiopulmonary process. The CTA of the chest yesterday did not demonstrate any mucous plugging but did have emphysematous changes throughout both lungs along with micronodules that will need followed up outpatient with primary care provider. I do not feel that at this time he would benefit from bronchoscopy. Sputum culture. Pt's WBC continues to increase, ceftriaxone has been started by IM. Will sign off call if needed. Supervisory-Addendum Brief Verification & Attestation Participated in pt care: history, MDM, physical Personally performed: exam, history, MDM, supervision of care Care discussed with: Medical Student Procedures: n/a Results interpretation: Verified all documentation Verification and Attestation of Medical Student E/M Service A medical student performed and documented this service in my presence. I reviewed and verified all information documented by the medical student and made modifications to such information, when appropriate. I personally performed the physical exam and medical decision making. Stormy García, Jun 05, 2021,13:55 FLORESITA THOMSON MED STUDENT Jun 05, 2021 09:14 STORMY GARCÍA DO Jun 05, 2021 13:55
--- NOTE | 2021-06-05 09:45 | Progress Note - Urology ---
Progress Note-Urology Progress Notes/Assess & Plan Progress/Assessment & Plan DOING, FEELING AND LOOKING BETTER. URINE CLEARING, LABS NOTED. ABDOMEN SOFT. PLAN DIET TOLERATED, ROCEPHIN DAILY, DAILY CBC. NEXT 2 DAYS PLAN FLEXIBLE CYSTO AT BEDSIDE AND RETROGRADE URETHROGRAM. ALL FULLY EXPLAINED TO PATIENT Final Diagnosis URETHRAL STRICTURE AND RETENTION ALEX GARRETT MD Jun 05, 2021 09:45
--- NOTE | 2021-06-05 11:28 | Occupational Therapy Eval ---
OT Evaluation-General/PLF Medical Diagnosis Admission Date Jun 05, 2021 at 09:17 Medical Diagnosis: failure to thrive/dyspnea Onset Date: Jun 03, 2021 Therapy Diagnosis Therapy Diagnosis: decreased ADL status, weakness Height/Weight Height (Feet): 6 Height (Inches): 2.00 Weight (Pounds): 186 Precautions Precautions/Isolations: Fall Prevention, Standard Precautions Referral Physician: Colton Referral Reason: Evaluation/Treatment Medical History Pertinent Medical History: Atrial Fib, COPD (2L at home), Neuropathy Additional Medical History neurogenic bladder, left hip revision x 2 due (most recent 05/13/21) Current History ED due to pain Social History Home: Assisted Living ADL-Prior Level of Function SCALE: Activities may be completed with or without assistive devices. 9-Dlsziqvliw-suzdvjk completes the activity by him/herself with no assistance from a helper. 5-Set-up or Clean-up Assistance-helper sets up or cleans up; patient completes activity. Alpine assists only prior to or following the activity. 4-Supervision or Touching Assistance-helper provides verbal cues and/or touching/steadying and/or contact guard assistance as patient completes activity. Assistance may be provided throughout the activity or intermittently. 3-Partial/Moderate Assistance-helper does LESS THAN HALF the effort. Alpine lifts, holds or supports trunk or limbs, but provides less than half the effort. 2-Substantial/Maximal Assistance-helper does MORE THAN HALF the effort. Alpine lifts or holds trunk or limbs and provides more than half the effort. 0-Cdnotxqez-mneapx does ALL the effort. Patient does none of the effort to complete the activity. Or, the assistance of 2 or more helpers is required for the patient to complete the activity. If activity was not attempted, code reason: 7-Patient Refused. 9-Not Applicable-not attempted and the patient did not perform the activity before the current illness, exacerbation or injury. 10-Not Attempted due to Environmental Limitations-(lack of equipment, weather restraints, etc.). 88-Not Attempted due to Medical Conditions or Safety Concerns. ADL PLOF Comments Pt reports requiring assistance with ADLs since his hip surgeries. He requires assistance bathing lower body, assistance with footwear and assistance with LE dressing. When asked about level of function prior to his surgeries, he was un able to recall. Self Care: Needed Some Help Functional Cognition: Unknown OT Current Status Subjective Pt laying in bed, initially refused OT evaluation, but agreeable to bed level activity with moderate encouragement. Pt required redirection to conversations and tasks. Mental Status/Objective Patient Orientation: Person, Confused, Place Current Hand Dominance: Right Upper Extremity ROM WFL, BUE shoulder flexion to approx 130 degrees Upper Extremity Coordination WFL Upper Extremity Strength grossly 3+/5 BUEs ADL-Treatment Eating (QC): 6 (IND with drinks.) Other Treatments Pt in bed, initially declined OT services on this date due to his urinary issues. OT educated pt on purpose and benefit of therapy, with moderate encouragement he was agreeable to bed level tasks. In order to increase BUE strength and activity tolerance, pt completed x10 reps each of the following BUE exercises: shoulder flexion, elbow flexion/extension, finger flexion/extension. Pt easily distracted with topics/exercises, requiring redirection to conversations and tasks. Post tx, pt in bed, call light in reach and all needs met. Education OT Patient Education: Correct positioning, Modified ADL techniques, Progress toward Goal/Update tx plan, Purpose of tx/functional activities, Rehab process Teaching Recipient: Patient Teaching Methods: Discussion Response to Teaching: Verbalize Understanding OT Pulling Unit Floorhand Goals Penitentiary Goals Time Frame: Jun 21, 2021 Eating (QC): 6 Oral Hygiene (QC): 6 Toileting Hygiene (QC): 4 Shower/Bathe Self (QC): 3 Upper Body Dressing (QC): 4 Lower Body Dressing (QC): 3 On/Off Footwear (QC): 3 Additional Goals: 1-Demonstrate ADL Tasks, 2-Verbalize Understanding, 3- ImproveStrength/Molly 1=Demonstrate adherence to instructed precautions during ADL tasks. 2=Patient will verbalize/demonstrate understanding of assistive devices /modifications for ADL. 3=Patient will improve strength/tolerance for activity to enable patient to perform ADL's. OT Education/Plan Problem List/Assessment Assessment: Decreased Activ Tolerance, Decreased Safety Aware, Decreased UE Strength, Impaired Funct Balance, Impaired I ADL's, Impaired Self-Care Skills Discharge Recommendations Plan/Recommendations: Continue POC Treatment Plan/Plan of Care Patient would benefit from OT for education, treatment and training to promote independence in ADL's, mobility, safety and/or upper extremity function for ADL's. Plan of Care: ADL Retraining, Functional Mobility, UE Funct Exercise/Act Treatment Duration: Jun 21, 2021 Frequency: 5 times per week Estimated Hrs Per Day: .25 hour per day Rehab Potential: Fair Time/GCodes Start Time: 09:38 Stop Time: 09:48 Total Time Billed (hr/min): 10 Billed Treatment Time 1, YULISSA ADORNO OT Jun 05, 2021 11:28
--- NOTE | 2021-06-05 11:34 | Physical Therapy Daily Note ---
PT Daily Note-Current Subjective Pt in bed upon arrival and agrees to doing exercises in bed. Pt declines to get up and walk and states he doesn't think he can do what PT is asking him to do.Reports he isn't having any pain at this time. Mental Status Patient Orientation: Person, Time Attachments: Gunderson Catheter, IV Transfers SCALE: Activities may be completed with or without assistive devices. 4-Hxgujxpgnr-ppafxam completes the activity by him/herself with no assistance from a helper. 5-Set-up or Clean-up Assistance-helper sets up or cleans up; patient completes activity. Lissie assists only prior to or following the activity. 4-Supervision or Touching Assistance-helper provides verbal cues and/or touching/steadying and/or contact guard assistance as patient completes activity. Assistance may be provided throughout the activity or intermittently. 3-Partial/Moderate Assistance-helper does LESS THAN HALF the effort. Lissie lifts, holds or supports trunk or limbs, but provides less than half the effort. 2-Substantial/Maximal Assistance-helper does MORE THAN HALF the effort. Lissie lifts or holds trunk or limbs and provides more than half the effort. 1-Garwtshzy-xkymqe does ALL the effort. Patient does none of the effort to complete the activity. Or, the assistance of 2 or more helpers is required for the patient to complete the activity. If activity was not attempted, code reason: 7-Patient Refused. 9-Not Applicable-not attempted and the patient did not perform the activity before the current illness, exacerbation or injury. 10-Not Attempted due to Environmental Limitations-(lack of equipment, weather restraints, etc.). 88-Not Attempted due to Medical Conditions or Safety Concerns. Weight Bearing Right Lower Extremity: Right Full Weight Bearing Left Lower Extremity: Left Weight Bearing/Tolerated Exercises Supine Ex: Ankle pumps, Quad Set, Glut sets, Heel Slides, Short Arc Quads, Scooting, Straight leg raise, Hip abd/add Supine Reps: 30 Treatments Pt in bed upon arrival and agrees to PT in bed and will supine exs. Pt declines ambulation this date as he thinks he will not be able to do what PT wants him do. PT reiterates that ambulation would be good for him and pt still declines. Pt performs all supine exs. All needs met call light nearby and PT exits the room. Assessment Current Status: Fair Progress Pt denies ambulation this date but able to perform all supine exs. Required rest breaks in between exs. PT Aerial Advertiser Goals Aerial Advertiser Goals PT Aerial Advertiser Goals Time Frame: Jun 15, 2021 Roll Left & Right (QC): 6 Sit to Lying (QC): 6 Lying-Sitting on Side/Bed(QC): 6 Sit to Stand (QC): 6 Chair/Xjt-py-Yggny Xfer(QC): 6 Toilet Transfer (QC): 6 Walk 10 feet (QC): 6 Walk 50ft with 2 Turns (QC): 6 Walk 150 ft (QC): 6 PT Plan Problem List Problem List: Activity Tolerance, Functional Strength, Safety Treatment/Plan Treatment Plan: Continue Plan of Care Treatment Plan: Bed Mobility, Education, Functional Activity Molly, Functional Strength, Gait, Safety, Therapeutic Exercise, Transfers Treatment Duration: Jun 15, 2021 Frequency: 6 times per week Estimated Hrs Per Day: .25 hour per day Safety Risks/Education Patient Education: Transfer Techniques Teaching Recipient: Patient Teaching Methods: Discussion Response to Teaching: Verbalize Understanding Time/GCodes Time In: 1022 Time Out: 1050 Total Billed Treatment Time: 28 Total Billed Treatment 1, EX 20', FA 8' ALEXYS LANDRY WAFER MACHINE OPERATOR Jun 05, 2021 11:34
--- NOTE | 2021-06-05 12:28 | Diagnostic Imaging Report ---
INDICATION: Shortness of air. TIME OF EXAM: 11:48 AM Correlation is made with prior chest from 06/03/2021. FINDINGS: Heart size stable. Lungs appear to be hyperinflated consistent with COPD. No infiltrates are detected. There is no effusion or pneumothorax. IMPRESSION: Stable chest. No acute feature is detected. Dictated by: Dictated on workstation # [id number]
[2021-06-05] MEDS: DOCUSATE SODIUM 100 MG (COLACE) CAP PO SCH (21:33)
[2021-06-06] MEDS: NS IV 1000 ML 1,000 ML IV SCH ×2 (01:51→14:56)
[2021-06-06 03:52] VITALS: BP 126/54
[2021-06-06] MEDS: HYDROcodone/APAP 5 MG/325 MG (LORTAB) TAB PO PRN ×2 (04:58→13:42)
[2021-06-06] MEDS: PANTOPRAZOLE 40 MG (PROTONIX) TAB PO SCH (04:59)
[2021-06-06] MEDS: CATHETER FLUSH 10 ML SYR IV SCH ×3 (04:59→21:51)
[2021-06-06] MEDS: RT-ALBUTEROL/IPRATROPIUM 3 ML (DUONEB) VIAL IH PRN ×2 (05:15→15:50)
[2021-06-06 07:21] VITALS: BP 102/57
[2021-06-06] MEDS: RT-ALBUTEROL/IPRATROPIUM 3 ML (DUONEB) VIAL IH SCH ×2 (07:45→20:35)
[2021-06-06 08:33] LABS: HEMATOCRIT 29 % (40-54); HEMOGLOBIN 9.1 g/dL (13.3-17.7); MEAN CORPUSCULAR HEMOGLOBIN 32 pg (25-34); MEAN CORPUSCULAR HGB CONC 32 g/dL (32-36); MEAN CORPUSCULAR VOLUME 99 fL (80-99); MEAN PLATELET VOLUME 9.8 fL (9.0-12.2); PLATELET COUNT 286 10^3/uL (130-400); WHITE BLOOD COUNT 15.3 10^3/uL (4.3-11.0)
[2021-06-06] MEDS ORDERED: LIDOCAINE UROJET 2% GEL 10 ML PKG ONE (08:38)
[2021-06-06 08:46] LABS: CREATININE SERUM 1.32 MG/DL (0.60-1.30)
[2021-06-06] MEDS: VITAMIN D3 125 MCG (5,000 UNITS) CAPSULE PO SCH (08:53)
[2021-06-06] MEDS: guaiFENesin (MUCINEX) 600 MG TAB PO SCH ×2 (08:53→21:51)
[2021-06-06] MEDS: cefTRIAXone 1,000 MG in WATER (STERILE) FOR INJECTION 10 ML IV SCH (08:53)
[2021-06-06] MEDS: AMIODARONE 200 MG (CORDARONE) TAB PO SCH (08:57)
--- NOTE | 2021-06-06 09:40 | Progress Note-Pre Operative ---
Pre-Operative Progress Note H&P Reviewed The H&P was reviewed, patient examined and no changes noted. Date Seen by Provider: Jun 06, 2021 Time Seen by Provider: 09:40 Date H&P Reviewed: Jun 06, 2021 Time H&P Reviewed: 09:40 Pre-Operative Diagnosis: STRICTURE AND RETENTION ALEX GARRETT MD Jun 06, 2021 09:40
--- NOTE | 2021-06-06 09:41 | Progress Note-Post Operative ---
Post-Operative Progess Note Surgeon (s)/Tax Map Technician (s) Surgeon ALEX GARRETT MD Tax Map Technician: NONE Pre-Operative Diagnosis STRICTURE AND RETENTION Post-Operative Diagnosis SAME Procedure & Operative Findings Date of Procedure 06/06/21 Procedure Performed/Findings CYSTOSCOPY Anesthesia Type GENERAL Estimated Blood Loss Estimated blood loss (mL): NONE Specimens/Packing Specimens Removed NONE Packing: NONE ALEX GARRETT MD Jun 06, 2021 09:41
[2021-06-06 11:04] VITALS: BP 104/60
--- NOTE | 2021-06-06 11:17 | Progress Note - Hospitalist ---
Subjective HPI/CC On Admission Date Seen by Provider: Jun 06, 2021 Time Seen by Provider: 11:13 Is an 81-year-old male with past medical history of atrial fibrillation who is declined anticoagulation, recent hip fracture with multiple revisions most recently on May 13, urinary retention, hypothyroidism who presented to the emergency department due to generalized weakness and urinary retention. At the time of my exam he is distracted by discomfort from a full bladder. He has been unable to urinate all night and refused a Gunderson catheter earlier today. He would like to attempt to stand and urinate instead. He states this has been going on for a while and is hoping there is a "miracle pill" that will fix him. We discussed the importance of emptying his bladder and need for urology consult to which she consents. I did call and speak with his stepson who is a local physician Dr. Rankin who states that last night patient was even delirious which she presumed was due to retention. He also states that he has been on oxygen since his most recent surgery 3 weeks ago and was coughing up brown mucus yesterday and is concerned that he is mucous plugging. Subjective/Events-last exam Pt reports doing better today. No complaints. Focused Exam Lactate Level 06/03/21 18:35: Lactic Acid Level 0.98 Objective Exam Vital Signs Vital Signs Date Time Temp Pulse Resp B/P (MAP) Pulse Ox O2 Delivery O2 Flow Rate FiO2 06/06/21 07:21 36.4 88 16 102/57 (72) 93 Nasal Cannula 2.50 Capillary Refill : Less Than 3 Seconds General Appearance: No Apparent Distress, Chronically ill, Thin Respiratory: Lungs Clear, No Respiratory Distress Cardiovascular: Regular Rate, Rhythm, No Murmur Gastrointestinal: Normal Bowel Sounds, Non Tender, Soft Neurologic/Psychiatric: Alert, Oriented x3 Results/Procedures Lab Laboratory Tests 06/06/21 08:15 Patient resulted labs reviewed. Imaging: Reviewed Imaging Report Assessment/Plan Assessment and Plan Assess & Plan/Chief Complaint Failure to thrive Urinary rentetion s/p Hip surgery on 05/13 at [place] CKD has had a 15lb weight loss documented here in 1 month PT/OT- Declined ambulation today, encouraged his participation today dietary consult for nutrition eval Urology consulted, appreciate recs- s/p SPT yesterday Hold ASA and Lovenox due to hematuria Continue Rocephin Retrograde urethrogram ordered per Dr Moya May be able to DC back to [facility] tomorrow is he does well with PT COPD h/o histoplasmosis On 2lpm CTA negative for PE as well as dopplers of Lower extremities Dr García saw yesterday and does not recommend bronch at this time Stable on 2lpm oxygen a-fib Only on Amiodarone at this time, currently in sinus rhythm ER note states patient does not want to be on Eliquis- confirmed with Dr Rankin that patient refuses Eliquis Appears to follow with Dr Roque DVT ppx: Lovenox Diagnosis/Problems Diagnosis/Problems (1) Failure to thrive Status: Acute Qualifiers: Failure to thrive age range: in adult Qualified Codes: R62.7 - Adult failure to thrive (2) Dyspnea Qualifiers: Dyspnea type: dyspnea on exertion Qualified Codes: R06.00 - Dyspnea, unspecified (3) LIMITATION OF ACTIVITIES DUE TO DISABILITY Status: Chronic (4) Urinary retention Status: Acute (5) A-fib Qualifiers: Atrial fibrillation type: paroxysmal Qualified Codes: I48.0 - Paroxysmal atrial fibrillation (6) COPD (chronic obstructive pulmonary disease) Qualifiers: COPD type: unspecified COPD Qualified Codes: J44.9 - Chronic obstructive pulmonary disease, unspecified (7) Weight loss Status: Acute RICARDO CLIFFORD MD Jun 06, 2021 11:17
[2021-06-06 11:35] VITALS: BP 104/60
--- NOTE | 2021-06-06 11:37 | OPERATIVE REPORT ---
DATE OF SERVICE: 06/06/2021 PREOPERATIVE DIAGNOSIS: Urethral stricture, urinary retention. POSTOPERATIVE DIAGNOSIS: Urethral stricture, urinary retention. OPERATION PERFORMED: Flexible cystoscopy. SURGEON: Saúl Garrett MD ANESTHESIA: Local. COMPLICATIONS: None. DESCRIPTION OF PROCEDURE: With the patient supine in his bed, genitalia were prepped and draped in the usual sterile fashion. Urethra was infiltrated with 2% lidocaine jelly and a penile clamp was applied. This was then removed, and a flexible cystoscope was introduced under vision. There was a severe pinpoint urethral stricture in the anterior urethra definitely not admitting the scope false passage above it from the previous catheterization. The cystoscope was removed. The patient tolerated the procedure and anesthesia well and was sent to recovery room in stable condition. PLAN: Retrograde urethrogram to study the length and extend the stricture to define the management. The plan was explained to the patient. cc: Dr. Rankin - requested, unable to deliver. cc: Dr. Dupree- requested, unable to deliver. cc: Dr. Nichols- requested, unable to deliver. Job ID: [id number] DocumentID: [id number] Dictated Date: 06/06/2021 09:42:50 Actuarial Associate Date: 06/06/2021 11:36:33 Dictated By: SAÚL GARRETT MD
--- NOTE | 2021-06-06 12:57 | Occupational Ther Daily Note ---
OT Current Status-Daily Note Subjective Pt was seated in chair w/ legs elevated upon OT arrival. Pt stated he would participate in tx session. Mental Status/Objective Patient Orientation: Person, Place, Situation Attachments: Gunderson Catheter, IV, Oxygen ADL-Treatment Therapy Code Descriptions/Definitions Functional [place] Measure: 0=Not Assessed/NA 4=Minimal Assistance 1=Total Assistance 5=Supervision or Setup 2=Maximal Assistance 6=Modified [place] 3=Moderate Assistance 7=Complete IndependenceSCALE: Activities may be completed with or without assistive devices. 9-Izjblvszdb-jfkasap completes the activity by him/herself with no assistance from a helper. 5-Set-up or Clean-up Assistance-helper sets up or cleans up; patient completes activity. [place] assists only prior to or following the activity. 4-Supervision or Touching Assistance-helper provides verbal cues and/or touching/steadying and/or contact guard assistance as patient completes activity. Assistance may be provided throughout the activity or intermittently. 3-Partial/Moderate Assistance-helper does LESS THAN HALF the effort. [place] lifts, holds or supports trunk or limbs, but provides less than half the effort. 2-Substantial/Maximal Assistance-helper does MORE THAN HALF the effort. [place] lifts or holds trunk or limbs and provides more than half the effort. 3-Wiiuatpxs-ujfkyb does ALL the effort. Patient does none of the effort to complete the activity. Or, the assistance of 2 or more helpers is required for the patient to complete the activity. If activity was not attempted, code reason: 7-Patient Refused. 9-Not Applicable-not attempted and the patient did not perform the activity before the current illness, exacerbation or injury. 10-Not Attempted due to Environmental Limitations-(lack of equipment, weather restraints, etc.). 88-Not Attempted due to Medical Conditions or Safety Concerns. Oral Hygiene (QC): 4 (Pt required VC's for sequencing to complete task efficiently while seated in chair utilizing bedside tray. ) Upper Body Dressing (QC): 3 (Pt requried Min assist to [facility] gown. ) Other Treatment Pt was seated in chair w/ legs elevated upon OT arrival. Pt stated he would participate in tx session. Pt participated in oral hygiene task while seated in chair utilizing bedside tray, see above QC. Pt performed washing his face while seated to support grooming tasks, set up. Pt then participated in UB dressing by doffing/donning his gown while seated in chair, see QC above. Post tx session, pt was seated in chair, legs elevated, call light within reach, and all needs met. Education OT Patient Education: Correct positioning, Modified ADL techniques, Progress toward Goal/Update tx plan, Purpose of tx/functional activities Teaching Recipient: Patient Teaching Methods: Discussion Response to Teaching: Verbalize Understanding, Reinforcement Needed OT Mcfp Goals Mcfp Goals Time Frame: Jun 21, 2021 Eating (QC): 6 Oral Hygiene (QC): 6 Toileting Hygiene (QC): 4 Shower/Bathe Self (QC): 3 Upper Body Dressing (QC): 4 Lower Body Dressing (QC): 3 On/Off Footwear (QC): 3 Additional Goals: 1-Demonstrate ADL Tasks, 2-Verbalize Understanding, 3- ImproveStrength/Molly 1=Demonstrate adherence to instructed precautions during ADL tasks. 2=Patient will verbalize/demonstrate understanding of assistive devices/modifications for ADL. 3=Patient will improve strength/tolerance for activity to enable patient to perform ADL's. OT Education/Plan Problem List/Assessment Assessment: Decreased Activ Tolerance, Decreased Safety Aware, Decreased UE St rength, Impaired Coordination, Impaired Funct Balance, Impaired I ADL's, Impaired Self-Care Skills Discharge Recommendations Plan/Recommendations: Continue POC Treatment Plan/Plan of Care Patient would benefit from OT for education, treatment and training to promote independence in ADL's, mobility, safety and/or upper extremity function for ADL's. Plan of Care: ADL Retraining, Functional Mobility, UE Funct Exercise/Act Treatment Duration: Jun 21, 2021 Frequency: 5 times per week Estimated Hrs Per Day: .25 hour per day Rehab Potential: Fair Time/GCodes Start Time: 11:35 Stop Time: 11:50 Total Time Billed (hr/min): 15 Billed Treatment Time 1 Visit, ADL YULISSA SANCHEZ OT Jun 06, 2021 12:57
--- NOTE | 2021-06-06 13:21 | Physical Therapy Daily Note ---
PT Daily Note-Current Subjective Patient seems confused upon PT arrival. He is unable to remember what day it is and cannot recall why he is here. He is agreeable to treatment, but reports at midpoint of gait he has to use the bathroom. Mental Status Patient Orientation: Person Transfers SCALE: Activities may be completed with or without assistive devices. 3-Ydywijlgkt-vdwlfrd completes the activity by him/herself with no assistance from a helper. 5-Set-up or Clean-up Assistance-helper sets up or cleans up; patient completes activity. [place] assists only prior to or following the activity. 4-Supervision or Touching Assistance-helper provides verbal cues and/or touching/steadying and/or contact guard assistance as patient completes activity. Assistance may be provided throughout the activity or intermittently. 3-Partial/Moderate Assistance-helper does LESS THAN HALF the effort. [place] lifts, holds or supports trunk or limbs, but provides less than half the effort. 2-Substantial/Maximal Assistance-helper does MORE THAN HALF the effort. [place] lifts or holds trunk or limbs and provides more than half the effort. 0-Zkujyvine-tbwdxr does ALL the effort. Patient does none of the effort to complete the activity. Or, the assistance of 2 or more helpers is required for the patient to complete the activity. If activity was not attempted, code reason: 7-Patient Refused. 9-Not Applicable-not attempted and the patient did not perform the activity before the current illness, exacerbation or injury. 10-Not Attempted due to Environmental Limitations-(lack of equipment, weather restraints, etc.). 88-Not Attempted due to Medical Conditions or Safety Concerns. Roll Left & Right (QC): 4 Sit to Lying (QC): 4 Lying to Sitting/Side of Bed(Q: 4 Sit to Stand (QC): 4 Chair/Xzi-py-Rhqfi Xfer(QC): 4 Toilet Transfer (QC): 4 Weight Bearing Right Lower Extremity: Right Full Weight Bearing Left Lower Extremity: Left Weight Bearing/Tolerated Gait Training Does the Patient Walk?: Yes Distance: 50 Walk 10 feet (QC): 4 Walk 50 ft with 2 Turns(QC): 4 Gait Assistive Device: FWW Assessment Current Status: Fair Progress Patient tolerated treatment fair. Performs all observed bed mobility and transfers with CGA and verbal cues for safety. He ambulates 50 feet with FWW, with CGA and verbal cues for safety, progression and balance. Patient requests to use the BR. Patient performed standing dynamic balance for hygiene and was able to perform I with CGA for balance. Patient immediately requested to use the BR again as he had to have another BM. student services counselor notified and stayed in room with patient upon PT departure. PT Ict Development Manager Goals Assisted Goals PT Ict Development Manager Goals Time Frame: Jun 15, 2021 Roll Left & Right (QC): 6 Sit to Lying (QC): 6 Lying-Sitting on Side/Bed(QC): 6 Sit to Stand (QC): 6 Chair/Wkz-nf-Offni Xfer(QC): 6 Toilet Transfer (QC): 6 Walk 10 feet (QC): 6 Walk 50ft with 2 Turns (QC): 6 Walk 150 ft (QC): 6 PT Plan Treatment/Plan Treatment Plan: Continue Plan of Care Treatment Plan: Bed Mobility, Education, Functional Activity Molly, Functional Strength, Gait, Safety, Therapeutic Exercise, Transfers Treatment Duration: Jun 15, 2021 Frequency: 6 times per week Estimated Hrs Per Day: .25 hour per day Time/GCodes Time In: 1105 Time Out: 1130 Total Billed Treatment Time: 25 Total Billed Treatment Visit, GaitMICA JOHN A PT Jun 06, 2021 13:20
[2021-06-06 15:33] VITALS: BP 107/57
[2021-06-06] MEDS ORDERED: cefTRIAXone 1,000 MG VIAL ONE (15:44)
[2021-06-06] MEDS: LACTOBACILLUS ACIDOPHILUS (PROBIOTIC) CAPSULE PO SCH (18:28)
[2021-06-06 20:00] VITALS: BP 95/52
[2021-06-06] MEDS ORDERED: RT-ALBUTEROL/IPRATROPIUM 3 ML (DUONEB) VIAL IH SCH (21:00)
[2021-06-06] MEDS: DOCUSATE SODIUM 100 MG (COLACE) CAP PO SCH (21:51)
[2021-06-07] VITALS (7 sets, daily range): BP systolic 109–145; BP diastolic 56–66
[2021-06-07] MEDS: NS IV 1000 ML 1,000 ML IV SCH ×3 (01:05→20:16)
[2021-06-07] MEDS: RT-ALBUTEROL/IPRATROPIUM 3 ML (DUONEB) VIAL IH SCH ×4 (02:40→21:49)
[2021-06-07] MEDS: HYDROcodone/APAP 5 MG/325 MG (LORTAB) TAB PO PRN ×3 (03:20→20:14)
[2021-06-07 05:34] LABS: HEMATOCRIT 28 % (40-54); HEMOGLOBIN 8.8 g/dL (13.3-17.7); MEAN CORPUSCULAR HEMOGLOBIN 31 pg (25-34); MEAN CORPUSCULAR HGB CONC 32 g/dL (32-36); MEAN CORPUSCULAR VOLUME 99 fL (80-99); MEAN PLATELET VOLUME 9.8 fL (9.0-12.2); PLATELET COUNT 296 10^3/uL (130-400); WHITE BLOOD COUNT 11.3 10^3/uL (4.3-11.0)
[2021-06-07 05:56] LABS: POTASSIUM 4.4 MMOL/L (3.6-5.0)
[2021-06-07 05:57] LABS: CALCIUM 9.1 MG/DL (8.5-10.1)
[2021-06-07 06:01] LABS: CREATININE SERUM 1.12 MG/DL (0.60-1.30)
[2021-06-07] MEDS: CATHETER FLUSH 10 ML SYR IV SCH ×3 (06:02→20:16)
[2021-06-07] MEDS: PANTOPRAZOLE 40 MG (PROTONIX) TAB PO SCH (07:08)
[2021-06-07] MEDS: VITAMIN D3 125 MCG (5,000 UNITS) CAPSULE PO SCH (08:04)
[2021-06-07] MEDS: guaiFENesin (MUCINEX) 600 MG TAB PO SCH ×2 (08:04→20:13)
[2021-06-07] MEDS: LACTOBACILLUS ACIDOPHILUS (PROBIOTIC) CAPSULE PO SCH ×3 (08:05→19:05)
[2021-06-07] MEDS: AMIODARONE 200 MG (CORDARONE) TAB PO SCH (08:05)
[2021-06-07] MEDS: cefTRIAXone 1,000 MG in WATER (STERILE) FOR INJECTION 10 ML IV SCH (08:06)
--- NOTE | 2021-06-07 10:58 | Occupational Ther Daily Note ---
OT Current Status-Daily Note Subjective Pt was lying in bed w/ HOB elevated upon OT arrival. Pt stated he needed to use the bathroom. Mental Status/Objective Patient Orientation: Person Attachments: IV, Oxygen, Suprapubic Catheter ADL-Treatment Therapy Code Descriptions/Definitions Functional [place] Measure: 0=Not Assessed/NA 4=Minimal Assistance 1=Total Assistance 5=Supervision or Setup 2=Maximal Assistance 6=Modified [place] 3=Moderate Assistance 7=Complete IndependenceSCALE: Activities may be completed with or without assistive devices. 9-Lmnphiyujp-horypjq completes the activity by him/herself with no assistance from a helper. 5-Set-up or Clean-up Assistance-helper sets up or cleans up; patient completes activity. [place] assists only prior to or following the activity. 4-Supervision or Touching Assistance-helper provides verbal cues and/or touching/steadying and/or contact guard assistance as patient completes activi ty. Assistance may be provided throughout the activity or intermittently. 3-Partial/Moderate Assistance-helper does LESS THAN HALF the effort. [place] lifts, holds or supports trunk or limbs, but provides less than half the effort. 2-Substantial/Maximal Assistance-helper does MORE THAN HALF the effort. [place] lifts or holds trunk or limbs and provides more than half the effort. 6-Sqrudjaxe-pqcxhs does ALL the effort. Patient does none of the effort to complete the activity. Or, the assistance of 2 or more helpers is required for the patient to complete the activity. If activity was not attempted, code reason: 7-Patient Refused. 9-Not Applicable-not attempted and the patient did not perform the activity before the current illness, exacerbation or injury. 10-Not Attempted due to Environmental Limitations-(lack of equipment, weather restraints, etc.). 88-Not Attempted due to Medical Conditions or Safety Concerns. Toileting Hygiene (QC): 3 (Pt utilized BSC, required Min assist to clean backside area efficiently, at CGA while standing.) Toilet Transfer (QC): 4 (Pt required CGA during task. ) Other Treatment Pt was supine in bed w/ HOB elevated upon OT arrival. Pt stated he needed to use the bathroom. Pt performed bed mobility from supine to EOB at A. Pt transferred w/ FWW sit to stand, stand to sit to BSC at A. Pt performed toileting tasks, see above for QC's. Pt transferred w/ FWW sit to stand, stand to sit EOB at [facility]. Pt performed bed mobility from EOB to supine at SBA. Post tx session, pt was supine in bed w/ HOB elevated, call light within reach, and all needs met. Bed alarm activated. Education OT Patient Education: Correct positioning, Energy conservation, Modified ADL techniques, Progress toward Goal/Update tx plan, Purpose of tx/functional activities, Safety issues, Transfer techniques Teaching Recipient: Patient Teaching Methods: Discussion Response to Teaching: Verbalize Understanding, Reinforcement Needed OT Field Placement Director Goals Senior Living Goals Time Frame: Jun 21, 2021 Eating (QC): 6 Oral Hygiene (QC): 6 Toileting Hygiene (QC): 4 Shower/Bathe Self (QC): 3 Upper Body Dressing (QC): 4 Lower Body Dressing (QC): 3 On/Off Footwear (QC): 3 Additional Goals: 1-Demonstrate ADL Tasks, 2-Verbalize Understanding, 3- ImproveStrength/Molly 1=Demonstrate adherence to instructed precautions during ADL tasks. 2=Patient will verbalize/demonstrate understanding of assistive devices/donovan fications for ADL. 3=Patient will improve strength/tolerance for activity to enable patient to perform ADL's. OT Education/Plan Problem List/Assessment Assessment: Decreased Activ Tolerance, Decreased Safety Aware, Decreased UE Strength, Impaired Cognition, Impaired Coordination, Impaired Funct Balance, Impaired I ADL's, Impaired Self-Care Skills Discharge Recommendations Plan/Recommendations: Continue POC Treatment Plan/Plan of Care Patient would benefit from OT for education, treatment and training to promote independence in ADL's, mobility, safety and/or upper extremity function for ADL's. Plan of Care: ADL Retraining, Functional Mobility, UE Funct Exercise/Act Treatment Duration: Jun 21, 2021 Frequency: 5 times per week Estimated Hrs Per Day: .25 hour per day Rehab Potential: Fair Time/GCodes Start Time: 10:30 Stop Time: 10:46 Total Time Billed (hr/min): 16 Billed Treatment Time 1 Visit, ADL YULISSA SANCHEZ OT Jun 07, 2021 10:58
--- NOTE | 2021-06-07 11:36 | Progress Note - Hospitalist ---
Subjective HPI/CC On Admission Date Seen by Provider: Jun 07, 2021 Time Seen by Provider: 11:31 Is an 81-year-old male with past medical history of atrial fibrillation who is declined anticoagulation, recent hip fracture with multiple revisions most recently on May 13, urinary retention, hypothyroidism who presented to the emergency department due to generalized weakness and urinary retention. At the time of my exam he is distracted by discomfort from a full bladder. He has been unable to urinate all night and refused a Gunderson catheter earlier today. He would like to attempt to stand and urinate instead. He states this has been going on for a while and is hoping there is a "miracle pill" that will fix him. We discussed the importance of emptying his bladder and need for urology consult to which she consents. I did call and speak with his yingon who is a local physician Dr. Rankin who states that last night patient was even delirious which she presumed was due to retention. He also states that he has been on oxygen since his most recent surgery 3 weeks ago and was coughing up brown mucus yesterday and is concerned that he is mucous plugging. Subjective/Events-last exam Pt repors feeling ok today. Dr Chucho Soto at bedside. We discuss possible DC plans and patient expresses frustration with potential SNF need. Ultimately expresses understanding that he may need to DC there. Objective Exam Vital Signs Vital Signs Date Time Temp Pulse Resp B/P (MAP) Pulse Ox O2 Delivery O2 Flow Rate FiO2 06/07/21 07:30 93 Nasal Cannula 1.00 06/07/21 07:26 36.6 68 20 118/58 (78) 06/06/21 11:04 28 Capillary Refill : Less Than 3 Seconds General Appearance: No Apparent Distress, Chronically ill, Thin Respiratory: Lungs Clear, No Respiratory Distress Cardiovascular: Regular Rate, Rhythm, No Murmur Neurologic/Psychiatric: Alert, Oriented x3 Results/Procedures Lab Laboratory Tests 06/07/21 05:08 Patient resulted labs reviewed. Imaging: Reviewed Imaging Report Assessment/Plan Assessment and Plan Assess & Plan/Chief Complaint Failure to thrive Urinary rentetion s/p Hip surgery on 05/13 at [facility] has had a 15lb weight loss documented here in 1 month PT/OT- Did much better yesterday, encouraged patient to continue to work with PT dietary consult for nutrition eval Urology consulted, appreciate recs- s/p SPT Cystoscopy done on 06/06- [facility] ordered retrograde urethrogram but unable to do here as fluoroscopy down, ordered as an outpatient Continue Rocephin Pursing SNF placement upon discharge COPD h/o histoplasmosis On 2lpm- stable CTA negative for PE as well as dopplers of Lower extremities Dr García consulted, appreciate recs a-fib Only on Amiodarone at this time, currently in sinus rhythm ER note states patient does not want to be on Eliquis- confirmed with Dr Rankin that patient refuses Eliquis Appears to follow with Dr Roque DVT ppx: Lovenox Diagnosis/Problems Diagnosis/Problems (1) Failure to thrive Status: Acute Qualifiers: Failure to thrive age range: in adult Qualified Codes: R62.7 - Adult failure to thrive (2) Dyspnea Qualifiers: Dyspnea type: dyspnea on exertion Qualified Codes: R06.00 - Dyspnea, unspecified (3) LIMITATION OF ACTIVITIES DUE TO DISABILITY Status: Chronic (4) Urinary retention Status: Acute (5) A-fib Qualifiers: Atrial fibrillation type: paroxysmal Qualified Codes: I48.0 - Paroxysmal atrial fibrillation (6) COPD (chronic obstructive pulmonary disease) Qualifiers: COPD type: unspecified COPD Qualified Codes: J44.9 - Chronic obstructive pulmonary disease, unspecified (7) Weight loss Status: Acute RICARDO CLIFFORD MD Jun 07, 2021 11:36
--- NOTE | 2021-06-07 15:03 | Physical Therapy Daily Note ---
PT Daily Note-Current Subjective Patient confused at this time, has difficulty finishing his thoughts and speaking on them. He frequently starts a sentence and then stops and starts again at the beginning of the original sentence. Mental Status Patient Orientation: Person, Confused Transfers SCALE: Activities may be completed with or without assistive devices. 3-Djzndkskqf-bbivqps completes the activity by him/herself with no assistance from a helper. 5-Set-up or Clean-up Assistance-helper sets up or cleans up; patient completes activity. [place] assists only prior to or following the activity. 4-Supervision or Touching Assistance-helper provides verbal cues and/or touching/steadying and/or contact guard assistance as patient completes activity. Assistance may be provided throughout the activity or intermittently. 3-Partial/Moderate Assistance-helper does LESS THAN HALF the effort. [place] lifts, holds or supports trunk or limbs, but provides less than half the effort. 2-Substantial/Maximal Assistance-helper does MORE THAN HALF the effort. [place] lifts or holds trunk or limbs and provides more than half the effort. 7-Dmfnvwnoq-bcchic does ALL the effort. Patient does none of the effort to complete the activity. Or, the assistance of 2 or more helpers is required for the patient to complete the activity. If activity was not attempted, code reason: 7-Patient Refused. 9-Not Applicable-not attempted and the patient did not perform the activity before the current illness, exacerbation or injury. 10-Not Attempted due to Environmental Limitations-(lack of equipment, weather restraints, etc.). 88-Not Attempted due to Medical Conditions or Safety Concerns. Patient refused out of bed activity. Weight Bearing Right Lower Extremity: Right Full Weight Bearing Left Lower Extremity: Left Weight Bearing/Tolerated Gait Training Does the Patient Walk?: Yes Exercises Supine Ex: Bridging, Quad Set, Glut sets, Heel Slides, Short Arc Quads, Straight leg raise, Hip abd/add Supine Reps: 20 Assessment Current Status: Fair Progress Patient sitting up in bed upon PT arrival, agreeable to treatment but refuses out of bed treatment. Patient performs LE therapeutic exercise as listed above. Patient in bed post treatment with all needs met, nursing notified, call light in reach. PT Show Girl Goals Intermediate Goals PT Show Girl Goals Time Frame: Jun 15, 2021 Roll Left & Right (QC): 6 Sit to Lying (QC): 6 Lying-Sitting on Side/Bed(QC): 6 Sit to Stand (QC): 6 Chair/Fui-xq-Hjbhs Xfer(QC): 6 Toilet Transfer (QC): 6 Car Transfer (QC): 6 Does the Patient Walk: Yes Walk 10 feet (QC): 6 Walk 50ft with 2 Turns (QC): 6 Walk 150 ft (QC): 6 Walking 10ft on Uneven Surface: 88 1 Step (curb) (QC): 88 4 Steps (QC): 88 12 Steps (QC): 88 Picking up an Object (QC): 88 Does the Pt use WC or Scooter?: No Wheel 50 feet with 2 turns (QC: 88 Type: N/A Wheel 150 feet: 88 Type: N/A PT Plan Treatment/Plan Treatment Plan: Continue Plan of Care Treatment Plan: Bed Mobility, Education, Functional Activity Molly, Functional Strength, Gait, Safety, Therapeutic Exercise, Transfers Treatment Duration: Jun 15, 2021 Frequency: 6 times per week Estimated Hrs Per Day: .25 hour per day Safety Risks/Education Patient Education: Correct Positioning Teaching Recipient: Patient Teaching Methods: Demonstration Response to Teaching: Verbalize Understanding Time/GCodes Time In: 1430 Time Out: 1450 Total Billed Treatment Time: 20 Total Billed Treatment Visit, Ex MAME GUTIERREZ PT Jun 07, 2021 15:03
[2021-06-07] MEDS: DOCUSATE SODIUM 100 MG (COLACE) CAP PO SCH (20:13)
[2021-06-08] MEDS: HYDROcodone/APAP 5 MG/325 MG (LORTAB) TAB PO PRN ×2 (00:33→08:26)
[2021-06-08] MEDS: fentaNYL INJ 100 MCG/2 ML AMP IVP PRN ×3 (01:04→12:10)
[2021-06-08] MEDS: RT-ALBUTEROL/IPRATROPIUM 3 ML (DUONEB) VIAL IH SCH ×2 (03:34→07:44)
[2021-06-08 04:10] VITALS: BP 128/59
[2021-06-08] MEDS: CATHETER FLUSH 10 ML SYR IV SCH (04:41)
[2021-06-08] MEDS: PANTOPRAZOLE 40 MG (PROTONIX) TAB PO SCH (05:55)
[2021-06-08] MEDS: NS IV 1000 ML 1,000 ML IV SCH (05:55)
--- NOTE | 2021-06-08 07:34 | Diagnostic Imaging Report ---
EXAM: Left hip radiograph EXAM DATE: 06/08/2021 COMPARISON: Left hip radiograph 02/25/2021 HISTORY: Left hip pain. TECHNIQUE: 2 views of the left hip. FINDINGS: There is dislocation of the left femoral component of the prosthesis from the acetabular component. The femur is dislocated posteriorly and superiorly. No acute fracture is seen. Multiple coils are seen within the pelvis. IMPRESSION: 1. 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 No other acute fracture seen. Dictated by: Dictated on workstation # [id number]
[2021-06-08] MEDS: guaiFENesin (MUCINEX) 600 MG TAB PO SCH (08:12)
[2021-06-08] MEDS: LACTOBACILLUS ACIDOPHILUS (PROBIOTIC) CAPSULE PO SCH (08:12)
[2021-06-08] MEDS: AMIODARONE 200 MG (CORDARONE) TAB PO SCH (08:12)
[2021-06-08] MEDS: cefTRIAXone 1,000 MG in WATER (STERILE) FOR INJECTION 10 ML IV SCH (08:12)
[2021-06-08] MEDS: VITAMIN D3 125 MCG (5,000 UNITS) CAPSULE PO SCH (08:26)
[2021-06-08 08:38] VITALS: BP 112/56
--- NOTE | 2021-06-08 10:46 | CONSULTATION REPORT ---
DATE OF SERVICE: INPATIENT CONSULT REASON FOR CONSULT: Left hip pain. SERVICE: Orthopedic surgery. HISTORY OF PRESENT ILLNESS: This 81-year-old male is several-month status post left hip fracture. He was initially treated with ORIF with an intramedullary nail and femoral neck lag screw. This construct failed and he experienced a cutout of the locking screw. The patient was then converted to a bipolar hip prosthesis type construct in April. The patient was recovering and appeared to be doing well, but was admitted five days ago with acute urinary retention, weakness and underwent placement of a suprapubic urinary catheter by Dr. Moya. The patient otherwise was participating with in-house physical therapy and able to ambulate, but began to experience increased pain yesterday evening, the nurse states that he was noted to hold the left lower extremity flexed and internally rotated. Hip x-rays were obtained, which revealed dislocation of the hip prosthesis on the left. X-rays show a posterior dislocation of the prosthetic femoral head in relation to the acetabular component. His hip revision surgeon Dr. Hall was contacted earlier this morning and he has agreed to accept the patient once again to evaluate for revision hip surgery. Dr. Hall states that this current construct cannot be closed reduced and will require open surgical reduction and revision. The patient otherwise rated his current pain level at 6/10 earlier this morning, but is currently well controlled and he is resting comfortably and eating. The patient reports significant frustration with his inability to ambulate and with his recent history of requiring multiple left hip surgeries. Dr. Morrison is notified of the consult as well. CURRENT MEDICATIONS: Albuterol, lactobacillus acidophilus, vitamin D3, amiodarone, fentanyl, docusate, senna, MiraLax, Tylenol, Protonix, Pineola 5 mg and Mucinex. ALLERGIES: He has no known medication allergies. PAST MEDICAL HISTORY: He has had his COVID vaccines with the first in September followed by his second injection in October. He had a history of histoplasmosis, atrial fibrillation, COPD, prostate problems, and neurogenic bladder. He is currently admitted for acute urinary retention, dyspnea and weakness. LABORATORY DATA: Recent labs from 06/07/2021 showed a white count of 11.3, H and H was 8.8 and 28, and platelets were 296. Left lower extremity examination today shows slightly shortened and internally rotated left lower extremity. He has intact plantar flexion, dorsiflexion and EHL function. Sensation was grossly intact to light touch throughout the left lower extremity. He was unable to perform a straight leg raise while lying in bed. His left hip incision is otherwise well healed and mild swelling and perhaps faint ecchymosis is noted, but no warmth or erythema is present. He did have tenderness to palpation diffusely throughout the lateral and anterior hip regions. Review of x-rays, two views of the left hip, was mentioned as above. IMPRESSION: Left hip prosthetic dislocation. PLAN: Plan with Dr. Morrison, the plan will be to transfer the patient to [facility] in [place] for revision surgery. We have spoken with Dr. Hall and he has agreed to accept the patient, but he is out of town for the weekend, and we have not heard from the current on-call orthopedist, Dr. Luis as of yet, so we will plan for continued in-house hospitalization with pain control and plan to transfer him to [place] most likely sometime tomorrow to get him prepared for possible surgical revision sometime Thursday per Dr. Valdemar Hall. I also visited with Dr. Mckinley Nichols, the patient's primary care and he will be in communication with the patient's stepson Dr. Darrian Rankin. Job ID: [id number] DocumentID: [id number] Dictated Date: 06/08/2021 10:14:25 Civil Engineering Designer Date: 06/08/2021 10:45:30 Dictated By: BRIGIDA GREENWOOD
--- NOTE | 2021-06-08 11:09 | Physical Therapy Progress Note ---
Therapy Progress Note Pt refused treatment on the grounds that he just returned to bed after using the restroom and he was wanting to rest. BRANNON LOERA PT Jun 08, 2021 11:09
[2021-06-08 11:35] VITALS: BP 99/54
--- NOTE | 2021-06-08 11:44 | Discharge Summary ---
Diagnosis/Chief Complaint Date of Admission Jun 05, 2021 at 09:17 Date of Discharge Admission Diagnosis Failure to thrive Urinary retention Primary Care Erik Nichols MD Discharge Diagnosis (1) Failure to thrive Status: Acute (2) Dyspnea (3) LIMITATION OF ACTIVITIES DUE TO DISABILITY Status: Chronic (4) Urinary retention Status: Acute (5) A-fib (6) COPD (chronic obstructive pulmonary disease) (7) Weight loss Status: Acute Discharge Summary Procedures/Consulations Dr Moya- Urology Dr Morrison- Orthopedic Surgery Discharge Physical Exam Allergies: Coded Allergies: No Known Drug Allergies (Unverified , 01/23/12) Vitals & I&Os Vital Signs Date Time Temp Pulse Resp B/P (MAP) Pulse Ox O2 Delivery O2 Flow Rate FiO2 06/08/21 11:35 37.0 93 16 99/54 (69) 97 Nasal Cannula 2.00 06/06/21 11:04 28 General Appearance: No Apparent Distress, Chronically ill, Thin Respiratory: Lungs Clear, No Respiratory Distress Cardiovascular: Regular Rate, Rhythm, No Murmur Neurologic/Psychiatric: Alert, Oriented x3 Hospital Course Patient was admitted to the hospital secondary to failure to thrive and urinary retention following hip surgery roughly 1 month ago at [facility]. Urology was consulted and he underwent suprapubic catheter placement and he was working with physical therapy to increase his strength. We are pursuing discharge to a care home facility but after attempting to move himself in bed he felt his hip pop and imaging revealed dislocation posteriorly of his left hip that he had just had surgery on. Orthopedic surgery was consulted and recommended transfer back to [facility] where Dr. Hall had done his surgery already. I discussed this with Dr. Bedoya the hospitalist on-call at [facility] who accepted transfer. Labs (last 24 hrs) Microbiology 06/06/21 MRSA Screen - Final, Complete MRSA not isolated 06/03/21 Blood Culture - Preliminary, Resulted No growth 06/03/21 Urine Culture - Final, Complete NO GROWTH Patient resulted labs reviewed. Imaging: Reviewed Imaging Report Discussion & Recommendations Discharge Planning: >30 minutes discharge planning Discharge Home Medications: Active Scripts Active Reported Tylenol Extra Strength (Acetaminophen) 500 Mg Tablet 1,000 Mg PO Q8H PRN Senna-S Tablet (Sennosides/Docusate Sodium) 1 Each Tablet 1 Each PO BID PRN Docusate Sodium 100 Mg Capsule 100 Mg PO BID PRN Iprat-Albut 0.5-3(2.5) mg/3 ml (Ipratropium/Albuterol Sulfate) 3 Ml Ampul.neb 3 Ml NEB Q4H PRN Miralax (Polyethylene Glycol 3350) 17 Gm Powd.pack 17 Gm PO DAILY PRN Docusate Sodium 100 Mg Capsule 100 Mg PO 2100 Aspirin EC (Aspirin) 81 Mg Tablet.dr 81 Mg PO BID TWICE DAILY DOSE STARTED ON 05-29-2021 AND TO CONTINUED UNTIL 06-11-2021, THEN ONCE DAILY DOSE WILL BE CONTINUED Pantoprazole Sodium 40 Mg Tablet.dr 40 Mg PO DAILY Amiodarone HCl 200 Mg Tablet 200 Mg PO DAILY Iprat-Albut 0.5-3(2.5) mg/3 ml (Ipratropium/Albuterol Sulfate) 3 Ml Ampul.neb 3 Ml NEB TID Vitamin D3 (Cholecalciferol (Vitamin D3)) 125 Mcg Tablet 125 Mcg PO DAILY Mucinex (Guaifenesin) 600 Mg Tab.er.12h 600 Mg PO BID Instructions to patient/family Please see electronic discharge instructions given to patient. Copy Copies To 1: ERIK NICHOLS MD Problem Qualifiers (1) Failure to thrive: Failure to thrive age range: in adult Qualified Codes: R62.7 - Adult failure to thrive (2) Dyspnea: Dyspnea type: dyspnea on exertion Qualified Codes: R06.00 - Dyspnea, unspecified (3) A-fib: Atrial fibrillation type: paroxysmal Qualified Codes: I48.0 - Paroxysmal atrial fibrillation (4) COPD (chronic obstructive pulmonary disease): COPD type: unspecified COPD Qualified Codes: J44.9 - Chronic obstructive pulmonary disease, unspecified RICARDO CLIFFORD MD Jun 08, 2021 11:44
== END 2021-06-08 14:35 | disposition short-term general hospital (02) | DRG 697 ==
LOC: EDUNIT# 18:00 → ER 18:02 → 4TH 21:42 → OBSVTOIN 06-05 09:17 → 4TH 06-07 15:54
PROVIDERS: ADMIT Internal Medicine; ATTEND Internal Medicine
PROC: 0T9B30Z Drainage of Bladder with Drainage Device, Percutaneous Approach (ICD-10-PCS; 2021-06-04)
PROC: 0TJB8ZZ Inspection of Bladder, Via Natural or Artificial Opening Endoscopic (ICD-10-PCS; principal; 2021-06-06 09:15)
DX: N35.919 Unspecified urethral stricture, male, unspecified site (principal); R33.9 Retention of urine, unspecified; Z79.890 Hormone replacement therapy; Z79.899 Other long term (current) drug therapy; J44.9 Chronic obstructive pulmonary disease, unspecified; I48.91 Unspecified atrial fibrillation; R62.7 Adult failure to thrive; R06.00 Dyspnea, unspecified; Z87.891 Personal history of nicotine dependence; I10 Essential (primary) hypertension; I48.0 Paroxysmal atrial fibrillation; R63.4 Abnormal weight loss; Z79.82 Long term (current) use of aspirin; Z68.20 Body mass index [BMI] 20.0-20.9, adult
CPT/HCPCS: 36415; 71045; 71275; 73502; 80048; 80053; 81000; 83605; 83880; 84443; 85007; 85025; 85027; 85379; 85610; 85730; 86850; 86900; 86901; 87040; 87081; 87088; 93005; 93970; 94640; 94760; G0378

== ENCOUNTER 2021-07-06 18:39 | Emergency (ER) | payer MEDICARE ==
[~2021-07-06] VITALS: Ht 74 cm; Wt 73.5 kg
[~2021-07-06 18:39] MED LIST changes: +ACET-2267 PO; +ASPI-1238 PO; +DOCU100C37 PO; +IPRA3AMP31 NEB; +POLY17PO6 PO; +SENN-109 PO
--- NOTE | 2021-07-06 19:19 | ED GU-Male ---
General Chief Complaint: Catheter/Drain/Tube Problems Stated Complaint: CATHETER NOT DRAINING Nursing Triage Note: Pt arrives via EMS from [facility] for c/o superpubic catheter not draining. Per medical record from half-way catheter in place for urinary retention. Source: patient Exam Limitations: clinical condition History of Present Illness Date Seen by Provider: Jul 06, 2021 Time Seen by Provider: 19:05 Initial Comments Patient is an 81-year-old male who presents to the emergency room by ambulance with a chief complaint of suprapubic catheter not draining. I did not receive report from the half-way and the patient is not a great historian as he cannot really recall the timeline of recent events. He states that he has had multiple left hip surgeries over the course of the last for 5 months. He cannot recall exactly when the suprapubic catheter was placed or why it was placed. He believes it may have been changed out within the last 2 weeks. He states occasionally he does dribble urine from his penis. He does endorse a little bit of nausea and some abdominal discomfort. He denies chest pain or shortness of breath. He does have a mild cough noted during examination. He is not tachycardic or hypotensive but he does feel warm and is quite fatigued appearing. Patient states that his orthopedic surgeon is at Dr. Rafael Diana. He denies any recent falls, states that he has been doing a little bit of physical th erapy. Tells me that he believes his sons would be better historians regarding his timeline of recent health issues. No analysis immediately available for further history. All other review of systems reviewed and negative except as stated. Timing/Duration: this evening Severity/Quality: moderate Associated Symptoms: abdominal pain, nausea/vomiting Allergies and Home Medications Allergies Coded Allergies: No Known Drug Allergies (Unverified , 01/23/12) Patient Home Medication List Home Medication List Reviewed: Yes Acetaminophen (Tylenol Extra Strength) 500 Mg Tablet, 1,000 MG PO Q8H PRN for PAIN-MILD (1-4), (Reported) Entered as Reported by: SANTO HARRIS on 06/04/21 1036 Amiodarone HCl (Amiodarone HCl) 200 Mg Tablet, 200 MG PO DAILY, (Reported) Entered as Reported by: SANTO HARRIS on 06/04/21 1036 Aspirin (Aspirin EC) 81 Mg Tablet.dr, 81 MG PO BID, (Reported) Entered as Reported by: SANTO HARRIS on 06/04/21 103 Cefdinir (Cefdinir) 300 Mg Capsule, 300 MG PO BID Prescribed by: DARYA CHAPMAN on 07/06/212041 Cholecalciferol (Vitamin D3) (Vitamin D3) 125 Mcg Tablet, 125 MCG PO DAILY, (Reported) Entered as Reported by: MI BONDS on 02/04/21 0849 Docusate Sodium (Docusate Sodium) 100 Mg Capsule, 100 MG PO 2100, (Reported) Entered as Reported by: SANTO HARRIS on 06/04/21 103 Docusate Sodium (Docusate Sodium) 100 Mg Capsule, 100 MG PO BID PRN for CONSTIPATION-1ST LINE, (Reported) Entered as Reported by: SANTO HARRIS on 06/04/211035 Guaifenesin (Mucinex) 600 Mg Tab.er.12h, 600 MG PO BID, (Reported) Entered as Reported by: MI BONDS on 02/04/2149 Ipratropium/Albuterol Sulfate (Iprat-Albut 0.5-3(2.5) mg/3 ml) 3 Ml Ampul.neb, 3 ML NEB TID, (Reported) Entered as Reported by: SANTO HARRIS on 06/04/211035 Ipratropium/Albuterol Sulfate (Iprat-Albut 0.5-3(2.5) mg/3 ml) 3 Ml Ampul.neb, 3 ML NEB Q4H PRN for SHORTNESS OF BREATH, (Reported) Entered as Reported by: SANTO HARRIS on 06/04/21 103 Pantoprazole Sodium (Pantoprazole Sodium) 40 Mg Tablet.dr, 40 MG PO DAILY, (Reported) Entered as Reported by: SANTO HARRIS on 06/04/21 103 Polyethylene Glycol 3350 (Miralax) 17 Gm Powd.pack, 17 GM PO DAILY PRN for CONSTIPATION-2ND LINE, (Reported) Entered as Reported by: SANTO HARRIS on 06/04/21 103 Sennosides/Docusate Sodium (Senna-S Tablet) 1 Each Tablet, 1 EACH PO BID PRN for CONSTIPATION-6TH LINE, (Reported) Entered as Reported by: SANTO HARRIS on 06/04/21 1036 Review of Systems Review of Systems Constitutional: see HPI EENTM: no symptoms reported Respiratory: cough (slight) Cardiovascular: no symptoms reported Gastrointestinal: abdominal pain, nausea Genitourinary: other (reportedly decreased urinary output throught suprapubic catheter) Musculoskeletal: joint pain (left hip) Psychiatric/Neurological: Depressed All Other Systemes Reviewed Negative Unless Noted: Yes Past [id number] Hx Patient Social History Tobacco Use?: No Use of E-Cig and/or Vaping dev: No Substance use?: No Alcohol Use?: No Pt feels they are or have been: No Immunizations Up To Date First/Initial COVID19 Vaccinat: 09/2020 Second COVID19 Vaccination Rufino: 10/2020 Third COVID19 Vaccination Date: 09/2020 Past Medical History Surgery/Hospitalization HX: EYE SURGERY, HERNIA REPAIR, left hip Surgeries: Yes (hernia) Orthopedic Respiratory: Yes COPD Currently Using CPAP: No Currently Using BIPAP: No Cardiac: No Atrial Fibrillation Neurological: No Reproductive Disorders: No Genitourinary: No Prostate Problems, Neurogenic Bladder Gastrointestinal: No Musculoskeletal: No Endocrine: No HEENT: No Cancer: No Psychosocial: No Integumentary: No Blood Disorders: No Family Medical History No Pertinent Family Hx Physical Exam Vital Signs Vital Signs - First Documented Capillary Refill : Less Than 3 Seconds Height, Weight, BMI Height: 6'2.00" Weight: 186lbs. oz. 81.269176ym; 134.00 BMI Method: General Appearance: WD/WN, other (generalised malaise) HEENT: PERRL/EOMI, other (wearing nasal cannula oxygen) Neck: normal inspection Cardiovascular: regular rate, rhythm, other (2+ radial pulses bilaterally) Respiratory: lungs clear, normal breath sounds, no respiratory distress, no accessory muscle use Gastrointestinal: normal bowel sounds, distended (slightly distended with voluntary guarding), guarding, tenderness (right sided abdomen) Male: normal genitalia Extremities: normal inspection, other (healed scar left hip) Neurologic/Psychiatric: alert, oriented x 3, depressed affect Skin: normal color, warm/dry, other (significant ecchymoses to the left flank) Focused Exam Lactate Level 07/06/21 19:25: Lactic Acid Level 1.21 Lactic Acid Level Laboratory Tests Test 07/06/21 19:25 Lactic Acid Level 1.21 MMOL/L (0.50-2.00) Progress/Results/Core Measures Suspected Sepsis SIRS Temperature: Pulse: 73 Respiratory Rate: 18 Laboratory Tests 07/06/21 19:25: White Blood Count 12.0H Blood Pressure 117 /60 Mean: 79 07/06/21 19:25: Lactic Acid Level 1.21 Laboratory Tests 07/06/21 19:25: Creatinine 1.28, INR Comment 1.0, Platelet Count 262, Total Bilirubin 0.3 Results/Orders Lab Results Laboratory Tests Test 07/06/21 19:25 Range/Units White Blood Count 12.0 H 4.3-11.0 10^3/uL Red Blood Count 3.01 L 4.30-5.52 10^6/uL Hemoglobin 9.4 L 13.3-17.7 g/dL Hematocrit 30 L 40-54 % Mean Corpuscular Volume 98 80-99 fL Mean Corpuscular Hemoglobin 31 25-34 pg Mean Corpuscular Hemoglobin Concent 32 32-36 g/dL Red Cell Distribution Width 14.3 10.0-14.5 % Platelet Count 262 130-400 10^3/uL Mean Platelet Volume 9.5 9.0-12.2 fL Immature Granulocyte % (Auto) 1 % Neutrophils (%) (Auto) 78 H 42-75 % Lymphocytes (%) (Auto) 9 L 12-44 % Monocytes (%) (Auto) 10 0-12 % Eosinophils (%) (Auto) 2 0-10 % Basophils (%) (Auto) 0 0-10 % Neutrophils # (Auto) 9.4 H 1.8-7.8 10^3/uL Lymphocytes # (Auto) 1.1 1.0-4.0 10^3/uL Monocytes # (Auto) 1.2 H 0.0-1.0 10^3/uL Eosinophils # (Auto) 0.3 0.0-0.3 10^3/uL Basophils # (Auto) 0.0 0.0-0.1 10^3/uL Immature Granulocyte # (Auto) 0.1 0.0-0.1 10^3/uL Prothrombin Time 13.4 12.2-14.7 SEC INR Comment 1.0 0.8-1.4 Activated Partial Thromboplast Time 37 H 24-35 SEC Urine Color BROWN H Urine Clarity CLOUDY Urine pH 6.5 5-9 Urine Specific Cartwright 1.025 H 1.016-1.022 Urine Protein 2+ H NEGATIVE Urine Glucose (UA) NEGATIVE NEGATIVE Urine Ketones NEGATIVE NEGATIVE Urine Nitrite POSITIVE H NEGATIVE Urine Bilirubin 2+ H NEGATIVE Urine Urobilinogen 1.0 < = 1.0 MG/DL Urine Leukocyte Esterase 2+ H NEGATIVE Urine RBC (Auto) 3+ H NEGATIVE Urine RBC 50-100 H /HPF Urine WBC >100 H /HPF Urine Squamous Epithelial Cells NONE /HPF Urine Renal Epithelial Cells NONE /HPF Urine Crystals NONE /LPF Urine Bacteria LARGE H /HPF Urine Casts NONE /LPF Urine Mucus LARGE H /LPF Urine Culture Indicated CULTURE PENDING Sodium Level 138 135-145 MMOL/L Potassium Level 4.1 3.6-5.0 MMOL/L Chloride Level 99 98-107 MMOL/L Carbon Dioxide Level 28 21-32 MMOL/L Anion Gap 11 5-14 MMOL/L Blood Urea Nitrogen 26 H 7-18 MG/DL Creatinine 1.28 0.60-1.30 MG/DL Estimat Glomerular Filtration Rate 54 BUN/Creatinine Ratio 20 Glucose Level 136 H 70-105 MG/DL Lactic Acid Level 1.21 0.50-2.00 MMOL/L Calcium Level 8.8 8.5-10.1 MG/DL Corrected Calcium 9.5 8.5-10.1 MG/DL Total Bilirubin 0.3 0.1-1.0 MG/DL Aspartate Amino Transf (AST/SGOT) 12 5-34 U/L Alanine Aminotransferase (ALT/SGPT) 6 0-55 U/L Alkaline Phosphatase 97 40-136 U/L C-Reactive Protein High Sensitivity 9.27 H 0.00-0.50 MG/DL Total Protein 6.7 6.4-8.2 GM/DL Albumin 3.1 L 3.2-4.5 GM/DL Procalcitonin 0.11 H <0.10 NG/ML My Orders Orders - DARYA CHAPMAN MD Cbc With Automated Diff (07/06/21 19:14) Comprehensive Metabolic Panel (07/06/21 19:14) Blood Culture (07/06/21 19:14) Sputum Culture (07/06/21 19:14) Urinalysis (07/06/21 19:14) Urine Culture (07/06/21 19:14) Protime With Inr (07/06/21 19:14) Partial Thromboplastin Time (07/06/21 19:14) Chest 1 View, Ap/Pa Only (07/06/21 19:14) Ed Iv/Invasive Line Start (07/06/21 19:14) Ed Iv/Invasive Line Start (07/06/21 19:14) Vital Signs Adult Sepsis Patie Q15M (07/06/21 19:14) O2 (07/06/21 19:14) Remove Rings In Anticipation O (07/06/21 19:14) Lactic Acid Analyzer (07/06/21 19:14) Hs C Reactive Protein (07/06/21 19:14) Procalcitonin (Pct) (07/06/21 19:14) Bladder Scan (07/06/21 19:19) Ns Iv 1000 Ml (Sodium Chloride 0.9%) (07/06/21 20:15) Ceftriaxone 1 Gm Pre-Mix (Rocephin 1 Gm (07/06/21 20:15) Medications Given in ED Current Medications Medications Dose Ordered Sig/Brayan Route Start Time Stop Time Status Last Admin Dose Admin Ceftriaxone Sodium/Dextrose 50 ml @ 100 mls/hr ONCE ONCE IV 07/06/21 20:15 07/06/21 20:44 DC 07/06/21 20:20 100 MLS/HR Vital Signs/I&O 07/06/21 07/06/21 07/06/21 07/06/21 18:50 18:50 19:34 21:07 Temp 37.0 37.1 37.1 Pulse 73 73 Resp 18 18 B/P (MAP) 117/60 (79) 117/60 Pulse Ox 94 96 94 O2 Delivery Nasal Cannula Nasal Cannula Nasal Cannula O2 Flow Rate 2.00 2.00 2.00 2.00 Capillary Refill : Less Than 3 Seconds Blood Pressure Mean: 79 Progress Note : Time: 20:34 Progress Note Patient's labs reviewed. He has a mildly elevated white blood cell count. He has evidence of urinary tract infection on the catheter obtained urine. Bladder scan showed only 30 mL of urine in his bladder. I suspect that he is moderately dehydrated. He was treated in the emergency department with a liter of fluids. Chemistry is unremarkable. Normal electrolytes, normal renal function. He is afebrile, not tachycardic, normal blood pressure. No concern for Sepsis in this elderly male with a catheter associated UTI. Treating with Rocephin and cefdinir as an outpatient. Catheter was flushed and appeared to be draining well into his bag. Departure Impression Primary Impression: Catheter-associated urinary tract infection Qualified Codes: T83.510A - Infection and inflammatory reaction due to cystostomy catheter, initial encounter; N39.0 - Urinary tract infection, site not specified Disposition: HOME, SELF-CARE Condition: Stable Departure-Patient Inst. Decision time for Depature: 20:41 Referrals: ERIK JOHN MD (PCP/Family) Primary Care Physician Patient Instructions: Urinary Tract Infection, Adult ED Add. Discharge Instructions: Drink plenty of fluids to stay well hydrated. You will need to take antibiotics for 10 days to treat a urinary tract infection. If you develop fever, worse abdominal pain, vomiting or any other emergent or concerning symptoms, please come back to the Emergency Department for re- evaluation. Follow up with your primary care doctor. Scripts Cefdinir (Cefdinir) 300 Mg Capsule 300 MG PO BID, #20 CAP 0 Refills Prov: DARYA CHAPMAN MD 07/07/21 Cefdinir (Cefdinir) 300 Mg Capsule 300 MG PO BID, #20 CAP 0 Refills Prov: DARYA CHAPMAN MD 07/06/21 Copy Copies To 1: ERIK JOHN MD, KATHRYN M MD Jul 06, 2021 19:19
[2021-07-06 19:34] LABS: BASOPHILS % (AUTO) 0 % (0-10); EOSINOPHILS # (AUTO) 0.3 10^3/uL (0.0-0.3); EOSINOPHILS % (AUTO) 2 % (0-10); HEMATOCRIT 30 % (40-54); HEMOGLOBIN 9.4 g/dL (13.3-17.7); LYMPHOCYTES # (AUTO) 1.1 10^3/uL (1.0-4.0); LYMPHOCYTES % (AUTO) 9 % (12-44); MEAN CORPUSCULAR HEMOGLOBIN 31 pg (25-34); MEAN CORPUSCULAR HGB CONC 32 g/dL (32-36); MEAN CORPUSCULAR VOLUME 98 fL (80-99); MEAN PLATELET VOLUME 9.5 fL (9.0-12.2); MONOCYTES # (AUTO) 1.2 10^3/uL (0.0-1.0); MONOCYTES % (AUTO) 10 % (0-12); NEUTROPHILS # (AUTO) 9.4 10^3/uL (1.8-7.8); NEUTROPHILS % (AUTO) 78 % (42-75); PLATELET COUNT 262 10^3/uL (130-400)
[2021-07-06 19:36] LABS: BILIRUBIN,URINE 2+ (NEGATIVE); CLARITY,URINE CLOUDY; COLOR,URINE BROWN; GLUCOSE, URINE (UA) NEGATIVE (NEGATIVE); KETONES,URINE NEGATIVE (NEGATIVE); LEUKOCYTE ESTERASE ,URINE 2+ (NEGATIVE); PH,URINE 6.5 (5-9); PROTEIN,URINE 2+ (NEGATIVE)
[2021-07-06 19:44] LABS: ALBUMIN 3.1 GM/DL (3.2-4.5); POTASSIUM 4.1 MMOL/L (3.6-5.0)
[2021-07-06 19:45] LABS: CALCIUM 8.8 MG/DL (8.5-10.1)
[2021-07-06 19:46] LABS: BACTERIA,URINE LARGE /HPF; NITRITE,URINE POSITIVE (NEGATIVE); RBC,URINE 50-100 /HPF; TOTAL PROTEIN 6.7 GM/DL (6.4-8.2); WBC,URINE >100 /HPF
[2021-07-06 19:47] LABS: PROTHROMBIN TIME PATIENT 13.4 SEC (12.2-14.7)
[2021-07-06 19:48] LABS: BILIRUBIN,TOTAL 0.3 MG/DL (0.1-1.0)
[2021-07-06 19:50] LABS: CREATININE SERUM 1.28 MG/DL (0.60-1.30)
--- NOTE | 2021-07-06 20:03 | Diagnostic Imaging Report ---
HISTORY: Sepsis. COMPARISON: 06/05/2021. TECHNIQUE: Frontal view of the chest. FINDINGS: Lung volumes are large. There is chronic scarring in the lung apices which is stable since the prior study. No new consolidation is seen. There is no pleural effusion or pneumothorax. The cardiac silhouette is normal in size. IMPRESSION: No acute pulmonary abnormality is seen. Dictated by: Dictated on workstation # [id number]
[2021-07-06] MEDS ORDERED: NS IV 1000 ML 1,000 ML IV SCH (20:15)
[2021-07-06] MEDS ORDERED: cefTRIAXone 1 GM PRE-MIX 50 ML IV ONE (20:15)
[2021-07-06] MEDS ORDERED: CEFD300C3 PO (20:42)
[2021-07-06 21:07] VITALS: BP 117/60
[2021-07-07] MEDS ORDERED: CEFD300C3 PO (03:18)
== END 2021-07-06 22:50 | disposition home or self-care (01) ==
LOC: EDUNIT# 18:39 → ER 18:40
DX: T83.510A Infection and inflammatory reaction due to cystostomy catheter, initial encounter (principal); N39.0 Urinary tract infection, site not specified; J44.9 Chronic obstructive pulmonary disease, unspecified; I48.91 Unspecified atrial fibrillation; Z79.82 Long term (current) use of aspirin; Z79.899 Other long term (current) drug therapy
CPT/HCPCS: 36415; 71045; 80053; 81000; 83605; 84145; 85025; 85610; 85730; 86141; 87040; 87077; 87088; 87186

== ENCOUNTER 2021-07-24 07:55 | Inpatient (IN) | payer MEDICARE ==
[~2021-07-24] VITALS: Ht 185 cm; Wt 75.0 kg
[~2021-07-24 07:55] MED LIST changes: -AMIO200T6 PO; +AMIO200T65 PO; +CEFD300C3 PO
[2021-07-24] MEDS ORDERED: LORazepam INJ 2 MG/ML (ATIVAN) VIAL ONE (08:08)
[2021-07-24] MEDS ORDERED: RT-ALBUTEROL/IPRATROPIUM 3 ML (DUONEB) VIAL ONE (08:10)
[2021-07-24] MEDS ORDERED: LACTATED RINGERS 1,000 ML IV ONE (08:15)
[2021-07-24] MEDS ORDERED: VANCOMYCIN INJECTION 1,000 MG in NS (IVPB) 250 ML IV ONE (08:15)
[2021-07-24] MEDS ORDERED: ASPIRIN 325 MG (5 GR) TABLET PO ONE (08:15)
[2021-07-24] MEDS ORDERED: ACETAMINOPHEN 500 MG TAB (TYLENOL) PO PRN (08:15)
[2021-07-24] MEDS: CEFEPIME INJECTION 1,000 MG in NS (IVPB) 50 ML IV ONE ×3 (08:20→09:16)
--- NOTE | 2021-07-24 08:22 | ED Respiratory ---
General Chief Complaint: Respiratory Problems Stated Complaint: RESP FAILURE Source: patient, family, EMS History of Present Illness Date Seen by Provider: Jul 24, 2021 Time Seen by Provider: 07:55 Initial Comments 81-year-old male with past medical history of COPD, CKD, neurogenic bladder with suprapubic catheter, pAfib off anticoagulation coming in via EMS from his [facility]pc due to respiratory distress. Reportedly he was in the 80s for oxygen saturation last night and they placed him on 5 L with little improvement. Continued to be low so they called an ambulance this morning. He last received a DuoNeb potentially last night which did not help much. He had a procedure where he was under anesthesia on Thursday per the son, but unsure if it was general anesthesia. No prior history of DVT or PE. Reportedly they did a rapid Covid test this morning which was negative. He has been on cefdinir since earlier this week as well for urinary tract infection. He did get 1 dose of ceftriaxone while in the emergency department at that time as well. Patient says his dyspnea is severe, constant, worsening since last night. He is unsure of the causes. Denying any chest pain, abdominal pain, nausea, vomiting, diarrhea. Endorses fever and EMS reports temperature was 101. Family and fpc confirm the patient is DNR/DNI. Allergies and Home Medications Allergies Coded Allergies: No Known Drug Allergies (Unverified , 01/23/12) Patient Home Medication List Home Medication List Reviewed: Yes Acetaminophen (Tylenol Extra Strength) 500 Mg Tablet, 1,000 MG PO Q8H PRN for PAIN-MILD (1-4), (Reported) Entered as Reported by: SANTO HARRIS on 06/04/21 1036 Last Action: Reviewed Albuterol Sulfate (Albuterol Sulfate) 2.5 Mg/0.5 Ml Vial.neb, 2.5 MG INH Q6H PRN for SHORTNESS OF BREATH, (Reported) Entered as Reported by: SANTO HARRIS on 07/24/21 1359 Last Action: Reviewed Amiodarone HCl (Amiodarone HCl) 200 Mg Tablet, 200 MG PO DAILY, (Reported) Entered as Reported by: SANTO HARRIS on 06/04/21 1036 Last Action: Reviewed Aspirin (Aspirin EC) 81 Mg Tablet.dr, 81 MG PO BID, (Reported) Entered as Reported by: SANTO HARRIS on 06/04/211035 Last Action: Reviewed Bisacodyl (Bisacodyl) 10 Mg Supp.rect, 10 MG RC DAILY PRN for CONSTIPATION-4TH LINE, (Reported) Entered as Reported by: SANTO HARRIS on 07/24/211354 Last Action: Reviewed Ceftriaxone Sodium (Ceftriaxone) 1 Gm Vial, 1 GM IM DAILY, (Reported) Entered as Reported by: SANTO HARRIS on 07/24/211354 Last Action: Reviewed Cholecalciferol (Vitamin D3) (Vitamin D3) 125 Mcg Tablet, 125 MCG PO DAILY, (Reported) Entered as Reported by: MI BONDS on 02/04/21 0849 Last Action: Reviewed Cyanocobalamin (Vitamin B-12) (Vitamin B-12) 1,000 Mcg Tablet, 1,000 MCG PO DAILY, (Reported) Entered as Reported by: SANTO HARRIS on 07/24/211354 Last Action: Reviewed Docusate Sodium (Docusate Sodium) 100 Mg Capsule, 100 MG PO DAILY, (Reported) Entered as Reported by: SANTO HARRIS on 06/04/211035 Last Action: Reviewed Escitalopram Oxalate (Lexapro) 10 Mg Tablet, 10 MG PO 1800, (Reported) Entered as Reported by: SANTO HARRIS on 07/24/211354 Last Action: Reviewed Gabapentin (Neurontin) 300 Mg Capsule, 300 MG PO DAILY, (Reported) Entered as Reported by: SANTO HARRIS on 07/24/211354 Last Action: Reviewed Guaifenesin (Mucinex) 600 Mg Tab.er.12h, 600 MG PO BID, (Reported) Entered as Reported by: SANTO HARRIS on 07/24/211354 Last Action: Reviewed Hydrocodone/Acetaminophen (Hydrocodone-Acetamin 5-325 mg) 1 Each Tablet, 1-2 EA PO Q4H PRN for PAIN-MODERATE (5-7), (Reported) Entered as Reported by: SANTO HARRIS on 07/24/211354 Last Action: Reviewed Melatonin (Melatonin) 3 Mg Tablet, 6 MG PO HS, (Reported) Entered as Reported by: SANTO HARRIS on 07/24/211354 Last Action: Reviewed Mometasone/Formoterol (Dulera 100 Mcg/5 Mcg Inhaler) 13 Gm Hfa.aer.ad, 2 PUFF INH BID, (Reported) Entered as Reported by: SANTO HARRIS on 07/24/211354 Last Action: Reviewed Pantoprazole Sodium (Pantoprazole Sodium) 40 Mg Tablet.dr, 40 MG PO DAILY, (Reported) Entered as Reported by: SANTO HARRIS on 06/04/21 103 Last Action: Reviewed Polyethylene Glycol 3350 (Miralax) 17 Gm Powd.pack, 17 GM PO DAILY PRN for CONSTIPATION-2ND LINE, (Reported) Entered as Reported by: SANTO HARRIS on 06/04/211035 Last Action: Reviewed Sennosides (Senna) 8.6 Mg Tablet, 8.6 MG PO DAILY PRN for CONSTIPATION-5TH LINE, (Reported) Entered as Reported by: SANTO HARRIS on 07/24/211354 Last Action: Reviewed Tramadol HCl (Tramadol HCl) 50 Mg Tablet, 50-100 MG PO Q6H PRN for PAIN-MODERATE (5-7), (Reported) Entered as Reported by: SANTO HARRIS on 07/24/211354 Last Action: Reviewed Vit A & D3 in Cod Liver Oil (Cod Liver Oil Softgel) 1 Each Capsule, 2 EACH PO DAILY, (Reported) Entered as Reported by: SANTO HARRIS on 07/24/211354 Last Action: Reviewed Discontinued Medications Cefdinir (Cefdinir) 300 Mg Capsule, 300 MG PO BID Discontinued Reason: No Longer Taking Prescribed by: DARYA CHAPMAN on 07/06/212041 Last Action: Discontinued Cefdinir (Cefdinir) 300 Mg Capsule, 300 MG PO BID Discontinued Reason: Duplicate Order Prescribed by: DARYA CHAPMAN on 07/07/21317 Last Action: Discontinued Docusate Sodium (Docusate Sodium) 100 Mg Capsule, 100 MG PO BID PRN for CONSTIPATION-1ST LINE, (Reported) Discontinued Reason: No Longer Taking Entered as Reported by: SANTO HARRIS on 06/04/21 103 Last Action: Discontinued Guaifenesin (Mucinex) 600 Mg Tab.er.12h, 600 MG PO BID, (Reported) Discontinued Reason: No Longer Taking Entered as Reported by: MI BONDS on 02/04/21 1088 Last Action: Discontinued Ipratropium/Albuterol Sulfate (Iprat-Albut 0.5-3(2.5) mg/3 ml) 3 Ml Ampul.neb, 3 ML NEB TID, (Reported) Discontinued Reason: No Longer Taking Entered as Reported by: SANTO HARRIS on 06/04/21 1036 Last Action: Discontinued Ipratropium/Albuterol Sulfate (Iprat-Albut 0.5-3(2.5) mg/3 ml) 3 Ml Ampul.neb, 3 ML NEB Q4H PRN for SHORTNESS OF BREATH, (Reported) Discontinued Reason: No Longer Taking Entered as Reported by: SANTO HARRIS on 06/04/21 1036 Last Action: Discontinued Ipratropium/Albuterol Sulfate (Iprat-Albut 0.5-3(2.5) mg/3 ml) 3 Ml Ampul.neb, 3 ML NEB Q6H PRN for SHORTNESS OF BREATH, (Reported) Discontinued Reason: No Longer Taking Entered as Reported by: SANTO HARRIS on 07/24/21 1355 Last Action: Discontinued Sennosides/Docusate Sodium (Senna-S Tablet) 1 Each Tablet, 1 EACH PO BID PRN for CONSTIPATION-6TH LINE, (Reported) Discontinued Reason: Prescription changed Entered as Reported by: SANTO HARRIS on 06/04/21 1036 Review of Systems Review of Systems Constitutional: chills, fever EENTM: No blurred vision Respiratory: cough, short of breath Cardiovascular: No chest pain Gastrointestinal: No abdominal pain Genitourinary: no symptoms reported Musculoskeletal: no symptoms reported Skin: no symptoms reported Psychiatric/Neurological: No Symptoms Reported Hematologic/Lymphatic: No Symptoms Reported Immunological/Allergic: no symptoms reported All Other Systems Reviewed Negative Unless Noted: Yes Past Mjxeuhd-Fairah-Wjsvrx Hx Patient Social History Substance use?: No Immunizations Up To Date First/Initial COVID19 Vaccinat: 09/2020 Second COVID19 Vaccination Rufino: 10/2020 Third COVID19 Vaccination Date: 09/2020 Past Medical History Surgery/Hospitalization HX: EYE SURGERY, HERNIA REPAIR, left hip Surgeries: Yes (hernia) Orthopedic Respiratory: Yes COPD Currently Using CPAP: No Currently Using BIPAP: No Cardiac: No Atrial Fibrillation Neurological: No Reproductive Disorders: No Genitourinary: No Prostate Problems, Neurogenic Bladder Gastrointestinal: No Musculoskeletal: No Endocrine: No HEENT: No Cancer: No Psychosocial: No Integumentary: No Blood Disorders: No Family Medical History No Pertinent Family Hx Physical Exam Vital Signs - First Documented 07/24/21 07:58 Temp 38.6 Pulse 105 Resp 28 B/P (MAP) 91/46 (61) Pulse Ox 85 O2 Delivery Non Rebreather O2 Flow Rate 15.00 Capillary Refill : Height: 6'2.00" Weight: 186lbs. oz. 81.594342qd; 134.00 BMI Method: General Appearance: WD/WN, moderate distress, thin Eyes: Bilateral Eye Normal Inspection HEENT: PERRL/EOMI, normal ENT inspection, pharynx normal Neck: non-tender, full range of motion, supple, normal inspection Respiratory: chest non-tender, accessory muscle use, crackles, wheezing Cardiovascular: no edema, no murmur, tachycardia Gastrointestinal: normal bowel sounds, non tender, soft; No distended, No guarding Genital/Rectal: other (Suprapubic catheter draining yellow clear urine with some clumping) Extremities: normal range of motion, non-tender, normal inspection, no pedal edema, no calf tenderness Neurologic/Psychiatric: contract attorney II-XII nml as tested, no motor/sensory deficits, alert, normal mood/affect, oriented x 3 Skin: normal color, warm/dry Lymphatic: no adenopathy Focused Exam Lactate Level 07/24/21 07:55: Lactic Acid Level 2.11*H Lactic Acid Level Laboratory Tests Test 07/24/21 07:55 Lactic Acid Level 2.11 MMOL/L (0.50-2.00) *H Progress/Results/Core Measures Suspected Sepsis SIRS Temperature: Pulse: Respiratory Rate: Laboratory Tests 07/24/21 07:55: White Blood Count 15.6H Blood Pressure / Mean: 07/24/21 07:55: Lactic Acid Level 2.11*H Laboratory Tests 07/24/21 07:55: Creatinine 1.32H, INR Comment 1.0, Platelet Count 299, Total Bilirubin 0.4 Results/Orders Lab Results Laboratory Tests Test 07/24/21 07:55 Range/Units White Blood Count 15.6 H 4.3-11.0 10^3/uL Red Blood Count 3.31 L 4.30-5.52 10^6/uL Hemoglobin 10.4 L 13.3-17.7 g/dL Hematocrit 33 L 40-54 % Mean Corpuscular Volume 99 80-99 fL Mean Corpuscular Hemoglobin 31 25-34 pg Mean Corpuscular Hemoglobin Concent 32 32-36 g/dL Red Cell Distribution Width 14.3 10.0-14.5 % Platelet Count 299 130-400 10^3/uL Mean Platelet Volume 10.4 9.0-12.2 fL Immature Granulocyte % (Auto) 0 % Neutrophils (%) (Auto) 90 H 42-75 % Lymphocytes (%) (Auto) 3 L 12-44 % Monocytes (%) (Auto) 6 0-12 % Eosinophils (%) (Auto) 0 0-10 % Basophils (%) (Auto) 0 0-10 % Neutrophils # (Auto) 14.1 H 1.8-7.8 10^3/uL Lymphocytes # (Auto) 0.5 L 1.0-4.0 10^3/uL Monocytes # (Auto) 0.9 0.0-1.0 10^3/uL Eosinophils # (Auto) 0.1 0.0-0.3 10^3/uL Basophils # (Auto) 0.1 0.0-0.1 10^3/uL Immature Granulocyte # (Auto) 0.1 0.0-0.1 10^3/uL Neutrophils % (Manual) 81 % Lymphocytes % (Manual) 5 % Monocytes % (Manual) 4 % Eosinophils % (Manual) 0 % Basophils % (Manual) 0 % Band Neutrophils 10 % Blood Morphology Comment NORMAL Prothrombin Time 13.7 12.2-14.7 SEC INR Comment 1.0 0.8-1.4 Activated Partial Thromboplast Time 26 24-35 SEC D-Dimer 5.10 H 0.00-0.49 UG/ML Sodium Level 138 135-145 MMOL/L Potassium Level 4.1 3.6-5.0 MMOL/L Chloride Level 101 98-107 MMOL/L Carbon Dioxide Level 26 21-32 MMOL/L Anion Gap 11 5-14 MMOL/L Blood Urea Nitrogen 34 H 7-18 MG/DL Creatinine 1.32 H 0.60-1.30 MG/DL Estimat Glomerular Filtration Rate 52 BUN/Creatinine Ratio 26 Glucose Level 104 70-105 MG/DL Lactic Acid Level 2.11 *H 0.50-2.00 MMOL/L Calcium Level 9.0 8.5-10.1 MG/DL Corrected Calcium 9.6 8.5-10.1 MG/DL Total Bilirubin 0.4 0.1-1.0 MG/DL Aspartate Amino Transf (AST/SGOT) 14 5-34 U/L Alanine Aminotransferase (ALT/SGPT) 12 0-55 U/L Alkaline Phosphatase 87 40-136 U/L Total Protein 6.5 6.4-8.2 GM/DL Albumin 3.2 3.2-4.5 GM/DL Procalcitonin 0.37 H <0.10 NG/ML My Orders Orders - CARMEN NEAL MD Lorazepam Injection (Ativan Injection) (07/24/21 08:08) Albuterol/Ipra Inhalation Soln (Duoneb I (07/24/21 08:10) Covid 19 Inhouse Test (07/24/21 08:13) Cbc With Automated Diff (07/24/21 08:13) Comprehensive Metabolic Panel (07/24/21 08:13) Blood Culture (07/24/21 08:13) Sputum Culture (07/24/21 08:13) Urinalysis (07/24/21 08:13) Urine Culture (07/24/21 08:13) Protime With Inr (07/24/21 08:13) Partial Thromboplastin Time (07/24/21 08:13) Chest 1 View, Ap/Pa Only (07/24/21 08:13) Acetaminophen Tablet (Tylenol Tablet) (07/24/21 08:15) Ed Iv/Invasive Line Start (07/24/21 08:13) Ed Iv/Invasive Line Start (07/24/21 08:13) Vital Signs Adult Sepsis Patie Q15M (07/24/21 08:13) O2 (07/24/21 08:13) Remove Rings In Anticipation O (07/24/21 08:13) Lactic Acid Analyzer (07/24/21 08:13) Influenza A And B By Pcr (07/24/21 08:13) Lactated Ringers (Lr 1000 Ml Iv Solution (07/24/21 08:15) Cefepime Injection (Maxipime Injection) (07/24/21 08:15) Vancomycin Injection (Vancomycin Injecti (07/24/21 08:15) Ekg Tracing (07/24/21 08:13) Albuterol/Ipra Inhalation Soln (Duoneb I (07/24/21 10:00) Svn Small Volume Nebulizer (07/24/21 08:13) Bipap (Bilevel) Set Up (07/24/21 08:13) Aspirin Tablet (Aspirin Tablet) (07/24/21 08:15) Fibrin Degradation Products (07/24/21 08:13) Manual Differential (07/24/21 07:55) Lorazepam Injection (Ativan Injection) (07/24/21 08:45) Ns (Ivpb) (Sodium Chloride 0.9% Ivpb Bag (07/24/21 09:04) Lactated Ringers (Lr 1000 Ml Iv Solution (07/24/21 09:45) Azithromycin Injection (Zithromax Inject (07/24/21 09:45) Medications Given in ED Current Medications Medications Dose Ordered Sig/Brayan Route Start Time Stop Time Status Last Admin Dose Admin Acetaminophen 1,000 mg ONCE PRN PO 07/24/21 08:15 07/24/21 08:57 DC 07/24/21 08:57 1,000 MG Albuterol/ Ipratropium 3 ml STK-MED ONCE .ROUTE 07/24/21 08:10 07/24/21 08:13 DC 07/24/21 08:20 3 ML Aspirin 325 mg ONCE ONCE PO 07/24/21 08:15 07/24/21 08:18 DC 07/24/21 08:56 325 MG Azithromycin 500 mg/Sodium Chloride 250 ml @ 250 mls/hr ONCE ONCE IV 07/24/21 09:45 07/24/21 10:44 DC 07/24/21 10:00 250 MLS/HR Cefepime HCl 1000 mg/Sodium Chloride 50 ml @ 100 mls/hr ONCE ONCE IV 07/24/21 08:15 07/24/21 08:44 DC 07/24/21 09:16 100 MLS/HR Lactated Ringer's 1,000 ml @ 0 mls/hr Q0M ONCE IV 07/24/21 08:15 07/24/21 08:18 DC 07/24/21 08:56 1,000 MLS/HR Lorazepam 1 mg ONCE ONCE IVP 07/24/21 08:45 07/24/21 08:46 DC 07/24/21 08:25 1 MG Lorazepam 2 mg STK-MED ONCE .ROUTE 07/24/21 08:08 07/24/21 08:12 DC 07/24/21 08:09 0.5 MG Vancomycin HCl 1000 mg/Sodium Chloride 250 ml @ 250 mls/hr ONCE ONCE IV 07/24/21 08:15 07/24/21 09:25 DC 07/24/21 09:40 250 MLS/HR Vital Signs/I&O 07/24/21 07/24/21 07/24/21 07/24/21 07:58 08:00 08:00 08:23 Temp 38.6 Pulse 105 98 Resp 28 B/P (MAP) 91/46 (61) Pulse Ox 85 95 98 O2 Delivery Non Rebreather NIV CPAP Non Rebreather O2 Flow Rate 15.00 15.00 100.00 Capillary Refill : Progress Note : Progress Note 81-year-old male with above history coming in due to respiratory distress. The patient was satting 85% on a nonrebreather mask on arrival. We transitioned him to BiPAP with significant improvement in his oxygenation and distress. Blood pressure was slightly low 90s over 50s with a MAP just under 65. An IV was placed and he was given a bolus of IV fluids as well as basic labs including blood cultures and lactate ordered. He was given broad-spectrum antibiotics with cefepime and neomycin. He did have a negative rapid Covid test this morning, but will send a repeat test as a PCR today to be sure as well as influenza testing. Portable chest x-ray as well as EKG ordered. ECG Initial ECG Impression Date: Jul 24, 2021 Initial ECG Impression Time: 08:52 Initial ECG Rate: 96 Initial ECG Rhythm: Normal Sinus Comment Narrow QRS, normal axis, subtle ST elevation in inferior leads does not meet STEMI criteria, no T wave abnormalities Diagnostic Imaging Diagonstic Imaging: Xray Plain Films/CT/US/NM/MRI: chest Comments [facility] [place], [place] NAME: PAULINE OVALLE [facility] REC#: [id number] PT STATUS: REG ER : 1940 PHYSICIAN: CARMEN NEAL MD ADMIT DATE: 07/24/21/ER Signed Date of Exam:07/24/21 CHEST 1 VIEW, AP/PA ONLY INDICATION: Hypoxic A upright portable chest shows normal heart size and vascularity. There is left lower lobe infiltrate consistent with pneumonia. Right lung is clear. There is no effusion or pneumothorax. IMPRESSION: There is left lower lobe infiltrate consistent with pneumonia. This is a change from the 07/07/2021 study. Dictated by: Dictated on workstation # [id number] Dict: 07/24/21924 Trans: 07/24/21937 [facility] [id number] Interpreted by: AYESHA BRADLEY MD Electronically signed by: AYESHA BRADLEY MD 07/24/21937 Critical Care Note Critical Care Start Time: 08:05 Stop Time: 09:02 Total Time (minutes) 57 Progress The patient was hypoxic and at significant risk for respiratory compromise on BiPAP. Later became hypotensive and required resuscitation and was at significant risk for hemodynamic compromise as well. Departure Impression Primary Impression: Pneumonia Qualified Codes: J18.9 - Pneumonia, unspecified organism Additional Impression: Respiratory failure Qualified Codes: J96.01 - Acute respiratory failure with hypoxia Disposition: ADMITTED INPATIENT Condition: Critical Departure-Patient Inst. Referrals: ERIK JOHN MD (PCP/Family) Primary Care Physician CARMEN NEAL MD Jul 24, 2021 08:22
[2021-07-24 08:23] VITALS: BP 91/44
[2021-07-24 08:23] LABS: BASOPHILS # (AUTO) 0.1 10^3/uL (0.0-0.1); BASOPHILS % (AUTO) 0 % (0-10); EOSINOPHILS # (AUTO) 0.1 10^3/uL (0.0-0.3); EOSINOPHILS % (AUTO) 0 % (0-10); HEMATOCRIT 33 % (40-54); HEMOGLOBIN 10.4 g/dL (13.3-17.7); LYMPHOCYTES # (AUTO) 0.5 10^3/uL (1.0-4.0); LYMPHOCYTES % (AUTO) 3 % (12-44); MEAN CORPUSCULAR HEMOGLOBIN 31 pg (25-34); MEAN CORPUSCULAR HGB CONC 32 g/dL (32-36); MEAN CORPUSCULAR VOLUME 99 fL (80-99); MEAN PLATELET VOLUME 10.4 fL (9.0-12.2); MONOCYTES # (AUTO) 0.9 10^3/uL (0.0-1.0); MONOCYTES % (AUTO) 6 % (0-12); NEUTROPHILS # (AUTO) 14.1 10^3/uL (1.8-7.8); NEUTROPHILS % (AUTO) 90 % (42-75); PLATELET COUNT 299 10^3/uL (130-400); WHITE BLOOD COUNT 15.6 10^3/uL (4.3-11.0)
[2021-07-24] MEDS: LORazepam INJ 2 MG/ML (ATIVAN) VIAL IVP ONE ×2 (08:25→08:56)
[2021-07-24 08:35] LABS: ALBUMIN 3.2 GM/DL (3.2-4.5); POTASSIUM 4.1 MMOL/L (3.6-5.0)
[2021-07-24 08:38] LABS: TOTAL PROTEIN 6.5 GM/DL (6.4-8.2)
[2021-07-24 08:39] LABS: BILIRUBIN,TOTAL 0.4 MG/DL (0.1-1.0)
[2021-07-24 08:41] LABS: CREATININE SERUM 1.32 MG/DL (0.60-1.30)
[2021-07-24 08:45] LABS: FIBRIN DEGRADATION PRODUCTS 5.1 UG/ML (0.00-0.49); PROTHROMBIN TIME PATIENT 13.7 SEC (12.2-14.7)
[2021-07-24 09:03] LABS: BAND NEUTROPHILS 10 %; BASOPHILS % (MANUAL) 0 %; EOSINOPHILS % (MANUAL) 0 %; LYMPHOCYTES % (MANUAL) 5 %; MONOCYTES % (MANUAL) 4 %; NEUTROPHILS % (MANUAL) 81 %; RBC MORPH NORMAL
[2021-07-24] MEDS ORDERED: NS (IVPB) 50 ML ONE (09:04)
[2021-07-24] MEDS: RT-ALBUTEROL/IPRATROPIUM 3 ML (DUONEB) VIAL INH SCH ×4 (09:14→21:59)
--- NOTE | 2021-07-24 09:27 | Diagnostic Imaging Report ---
INDICATION: Hypoxic A upright portable chest shows normal heart size and vascularity. There is left lower lobe infiltrate consistent with pneumonia. Right lung is clear. There is no effusion or pneumothorax. IMPRESSION: There is left lower lobe infiltrate consistent with pneumonia. This is a change from the 07/07/2021 study. Dictated by: Dictated on workstation # [id number]
[2021-07-24] MEDS ORDERED: LACTATED RINGERS 1,000 ML IV SCH (09:45)
[2021-07-24] MEDS ORDERED: AZITHROMYCIN INJECTION 500 MG in NS (IVPB) 250 ML IV ONE (09:45)
[2021-07-24] MEDS ORDERED: HOLD METFORMIN - RECEIVED CONTRAST 20 ML VIAL IV SCH (10:30)
[2021-07-24] MEDS ORDERED: NS 100 ML (IVPB) BAG IV ONE (10:30)
[2021-07-24] MEDS ORDERED: CATHETER FLUSH 10 ML SYR IV PRN (10:30)
[2021-07-24] MEDS ORDERED: IOHEXOL 350 MG/ML 100 ML (OMNIPAQUE 350) VIAL IV ONE (10:30)
[2021-07-24 10:31] LABS: BILIRUBIN,URINE NEGATIVE (NEGATIVE); CLARITY,URINE SL CLOUDY; COLOR,URINE YELLOW; GLUCOSE, URINE (UA) NEGATIVE (NEGATIVE); KETONES,URINE TRACE (NEGATIVE); LEUKOCYTE ESTERASE ,URINE 2+ (NEGATIVE); NITRITE,URINE NEGATIVE (NEGATIVE); PROTEIN,URINE 2+ (NEGATIVE)
[2021-07-24 10:41] LABS: BACTERIA,URINE MODERATE /HPF; RBC,URINE 50-100 /HPF; SQUAMOUS EPITHELIAL CELL,UR RARE /HPF; WBC,URINE >100 /HPF
[2021-07-24 11:03] VITALS: BP 97/52
[2021-07-24] MEDS ORDERED: ANTACID SUSP 30 ML UDC (MYLANTA) PO PRN (11:15)
[2021-07-24] MEDS ORDERED: VANCOMYCIN INJECTION 0.1 MG in NS (IVPB) 250 ML IV SCH (11:15)
[2021-07-24] MEDS ORDERED: ONDANSETRON 4 MG (ZOFRAN) ORAL DISSOLVE TAB PO PRN (11:15)
[2021-07-24] MEDS ORDERED: ONDANSETRON 4 MG/2 ML (SDV) Z0FRAN IV PRN (11:15)
[2021-07-24] MEDS ORDERED: MELATONIN 3 MG TABLET PO PRN (11:15)
[2021-07-24] MEDS ORDERED: polyethylene glycoL POWDER 17 GM (MIRALAX) PACK PO PRN (11:15)
[2021-07-24] MEDS ORDERED: ACETAMINOPHEN 325 MG TABLET PO PRN (11:15)
[2021-07-24] MEDS ORDERED: CEFEPIME INJECTION 1,000 MG in NS (IVPB) 50 ML IV SCH (11:30)
[2021-07-24] MEDS ORDERED: VANCOMYCIN 750 MG/NS 250 ML IVPB IV NR ×2 (11:30)
--- NOTE | 2021-07-24 11:36 | Diagnostic Imaging Report ---
PROCEDURE: CT angiography of the chest with contrast. TECHNIQUE: Multiple contiguous axial images were obtained through the chest after uneventful bolus administration of intravenous contrast. 3D reconstructed CTA MIP acquisitions were also performed. Auto Exposure Controls were utilized during the CT exam to meet ALARA standards for radiation dose reduction. INDICATION: Difficulty breathing. Positive D-dimer. Pneumonia. Recent bladder surgery. Concern for pulmonary embolism. COMPARISONS: CTA chest performed on 06/03/2021. FINDINGS: CT ANGIOGRAM: Evaluation for pulmonary embolism is limited by streak artifact and suboptimal contrast bolus, especially in the smaller segmental and subsegmental pulmonary arteries. No pulmonary embolism is identified. Normal caliber pulmonary arteries. No acute aortic abnormality seen on this study performed without cardiac gating. TRACHEA AND MAIN BRONCHI: Patent without evidence of tracheal or endobronchial lesion. LUNGS AND PLEURA: There is mild biapical pleuroparenchymal scarring. Centrilobular emphysematous changes again demonstrated in both upper lobes. There is dense consolidation in both lower lobes, with subtle scattered groundglass opacity in the superior segments of both lower lobes. There is unchanged scarring in the right middle lobe and lingula. No pleural effusion or pneumothorax. MEDIASTINUM AND BISI: Visualized thyroid gland is normal. There are mildly enlarged precarinal and AP window lymph nodes measuring up to 15 mm in short axis diameter. Esophagus is nondistended. HEART AND VESSELS: Heart is normal in size. No pericardial effusion. There is unchanged mild aneurysmal dilatation of the ascending aorta, which measures up to 4.1 cm in diameter. Incidental note is made of direct origin of the left vertebral artery from the aortic arch, a normal anatomic variant. DIAPHRAGM AND UPPER ABDOMEN: There is moderate pneumoperitoneum in the visualized upper abdomen. CHEST WALL: Mild bilateral gynecomastia. No axillary lymphadenopathy. BONES: There are nondisplaced fractures of the posterior right 10th and 11th ribs. There are also nondisplaced fractures of bilateral 8th through 10th ribs laterally. These are subacute to chronic in nature given associated periosteal reaction. Multilevel degenerative changes involve the spine. IMPRESSION: Allowing for technical limitations, no pulmonary embolism is identified. Airspace disease involving both lower lobes is felt to reflect multifocal pneumonia. Enlarged mediastinal lymph nodes are nonspecific, likely reactive in nature. Moderate pneumoperitoneum in the visualized upper abdomen is presumably related to reported recent bladder surgery. Called to Niru at 11:32 a.m. by cvb. Dictated by: Dictated on workstation # [id number]
[2021-07-24] MEDS: LACTATED RINGERS 1,000 ML IV SCH (11:41)
[2021-07-24] MEDS: ENOXAPARIN 40 MG/0.4 ML (LOVENOX) SYR SC SCH (11:41)
--- NOTE | 2021-07-24 12:20 | Tele-ICU Consult ---
History of Present Illness History of Present Illness Date Seen by Provider: Jul 24, 2021 Time Seen by Provider: 12:20 Date of Admission Allergies and Home Medications Allergies Coded Allergies: No Known Drug Allergies (Unverified , 01/23/12) Home Medications Acetaminophen 500 Mg Tablet, 1,000 MG PO Q8H PRN for PAIN-MILD (1-4), (Reported) Amiodarone HCl 200 Mg Tablet, 200 MG PO DAILY, (Reported) Aspirin 81 Mg Tablet.dr, 81 MG PO BID, (Reported) TWICE DAILY DOSE STARTED ON 05-29-2021 AND TO CONTINUED UNTIL 06-11-2021, THEN ONCE DAILY DOSE WILL BE CONTINUED Cefdinir 300 Mg Capsule, 300 MG PO BID Prescribed by: DARYA CHAPMAN on 07/06/212041 Cefdinir 300 Mg Capsule, 300 MG PO BID Prescribed by: DARYA CHAPMAN on 07/07/21317 Cholecalciferol (Vitamin D3) 125 Mcg Tablet, 125 MCG PO DAILY, (Reported) Docusate Sodium 100 Mg Capsule, 100 MG PO 2100, (Reported) Docusate Sodium 100 Mg Capsule, 100 MG PO BID PRN for CONSTIPATION-1ST LINE, (Reported) Guaifenesin 600 Mg Tab.er.12h, 600 MG PO BID, (Reported) Ipratropium/Albuterol Sulfate 3 Ml Ampul.neb, 3 ML NEB TID, (Reported) Ipratropium/Albuterol Sulfate 3 Ml Ampul.neb, 3 ML NEB Q4H PRN for SHORTNESS OF BREATH, (Reported) Pantoprazole Sodium 40 Mg Tablet.dr, 40 MG PO DAILY, (Reported) Polyethylene Glycol 3350 17 Gm Powd.pack, 17 GM PO DAILY PRN for CONSTIPATION- 2ND LINE, (Reported) Sennosides/Docusate Sodium 1 Each Tablet, 1 EACH PO BID PRN for CONSTIPATION-6TH LINE, (Reported) Past Medical/Social/Family Hx Patient Social History Tobacco Use?: No Substance use?: No Alcohol Use?: No Pt stated abuse/neglect: No Immunizations Up To Date Influenza Vaccine Up-to-Date: Yes; Up-to-Date First/Initial COVID19 Vaccinat: SEP 2020 Second COVID19 Vaccination Rufino: OCTOBER 2020 Tetanus Booster (TDap): Unknown Hepatitis A: No Hepatitis B: No TB Skin Test: None Current Status Advance Directives: Yes Advance Directive Location: Home Communicates: Verbally Primary Language: Ugandan Preferred Spoken Language: Ugandan Is interpretation needed?: No Implanted or Applied Medical D: None Review of Systems Constitutional: see HPI Sepsis Event Evaluation Height, Weight, BMI Height: 6'2.00" Weight: 186lbs. oz. 81.238108bq; 23.08 BMI Method: Exam Exam Patient acknowledged, consented, and participated in this virtual visit which was conducted using real time audio/video Vital Signs Date Time Temp Pulse Resp B/P (MAP) Pulse Ox O2 Delivery O2 Flow Rate FiO2 07/24/21 12:08 92 Vapotherm 40.00 80 07/24/21 12:04 90 NIV Bilevel 40 07/24/21 11:03 77 100 100.00 07/24/21 08:23 98 98 100.00 07/24/21 08:00 Non Rebreather 15.00 07/24/21 08:00 95 NIV CPAP 07/24/21 07:58 38.6 105 28 91/46 (61) 85 Non Rebreather 15.00 Height & Weight Height: 6'2.00" Weight: 186lbs. oz. 81.173731yf; 23.08 BMI Method: General Appearance: No Apparent Distress Capillary Refill: Less Than 3 Seconds Gastrointestinal: normal bowel sounds, non tender, soft; No distended, No guarding Results Lab Laboratory Tests 07/24/21 07:55 Assessment/Plan Assessment/Plan (Tele-ICU Physician , consultation) Available chart/ vitals / labs / Images reviewed H&P is from ER notes Patient's information available about PMH, Shx, Fhx allergy reviewed in EMR. ROS as per chart and RN report Now in ICU, hemodynamically stable Video assessment done using teleICU camera, rest of exam as per RN Discussed with RN. Consultants: Hospital course: 07/24 - from NH with fever and SOB , hypotension , BIPAP -> VT A/P Acute resp failure , ( no PE on CT 07/24 ) - on BIPAP 01/04 40 % rr 20 tv 600 MV 2 L - tolerates well - will try VT Sepsis - received 2 L NS , cont hydration PNA , LLL - ( flu and covid negative ) - cefepime + vanco started 07/24 UTI - abx , cx pending ( Suprapubic catheter ) PAF h/o , sinus now - OFF AC CKD - stable Anemia - stable Suprapubic catheter ( replaced on Thursday ) - Ct with Moderate pneumoperitoneum presumably related to this Lines : (Central Line Necessity Reviewed) Gunderson: chronic Suprapubic catheter OG: Nutrition: Analgesia: Anxiety/ delirium VTE Prophylaxis: lovenox 40 Stress Ulcer Prophylaxis: Glycemic Control: Plans in collaboration with bedside consultants and IM MDs. Discussed with RN to reach out if any questions or concerns A total of 40 minutes of critical care time was devoted to this patient today, required to treat and/or prevent further deterioration of critical care condition ( as above ) . JOSÉ MIGUEL ZAMORANO MD Jul 24, 2021 12:20
--- NOTE | 2021-07-24 13:54 | History & Physical-Hospitalist ---
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 Per ER note, the patient began experiencing respiratory distress 2 days ago. He was satting in the 80s, and was given 5L of oxygen with little improvement. The patient's son was here today and reported the patient had a urological procedure that required anesthesia (maybe general) on Thursday. Date Seen 07/24/21 Time Seen by a Provider: 13:45 Attending Physician Niko Brown MD PCP Mckinley Nichols MD Referring Physician Date of Admission Jul 24, 2021 at 09:54 Home Medications & Allergies Home Medications Reviewed patient Home Medication Reconciliation performed by pharmacy medication reconciliations manufacturing process technician and/or nursing. Patients Allergies have been reviewed. Allergies Allergies Coded Allergies No Known Drug Allergies (Unverified01/23/12) Past Bjztvas-Yirjcy-Iflmok Hx Patient Social History Tobacco Use?: No Substance use?: No Alcohol Use?: No Pt feels they are or have been: No Immunizations Up To Date First/Initial COVID19 Vaccinat: SEP 2020 Second COVID19 Vaccination Rufino: OCTOBER 2020 Tetanus Booster (TDap): Unknown Hepatitis A: No Hepatitis B: No Current Status Advance Directives: Yes Advance Directive Location: Home Communicates: Verbally Primary Language: Belizean Preferred Spoken Language: Belizean Is interpretation needed?: No Implanted or Applied Medical D: None Past Medical History Surgeries: Orthopedic COPD Currently Using CPAP: No Currently Using BIPAP: No Atrial Fibrillation Prostate Problems, Neurogenic Bladder Blood Disorders: No Family Medical History No Pertinent Family Hx Review of Systems Constitutional: No chills, No diaphoresis EENTM: no symptoms reported Respiratory: no symptoms reported Cardiovascular: No chest pain, No edema Gastrointestinal: no symptoms reported Musculoskeletal: no symptoms reported Psychiatric/Neurological: Denies Anxiety, Denies Depressed, Denies Emotional Problems Physical Exam Physical Exam Vital Signs Vital Signs - First Documented 07/24/21 07/24/21 07:58 12:04 Temp 38.6 Pulse 105 Resp 28 B/P (MAP) 91/46 (61) Pulse Ox 85 O2 Delivery Non Rebreather O2 Flow Rate 15.00 FiO2 40 Capillary Refill : Less Than 3 Seconds Height, Weight, BMI Height: 6'2.00" Weight: 186lbs. oz. 81.068418vx; 23.08 BMI Method: General Appearance: Chronically ill HEENT: Moist Mucous Membranes Respiratory: Chest Non Tender, No Accessory Muscle Use, No Respiratory Distress, Wheezing (at left lower sternal border ) Cardiovascular: Regular Rate, Rhythm, No Edema, No Murmur Gastrointestinal: No Organomegaly, No Pulsatile Mass, Soft Rectal: Deferred Neurologic/Psychiatric: Disoriented (did not know his current location) Skin: Normal Color, Warm/Dry Results Results/Procedures Labs Laboratory Tests 07/24/21 07:55 Patient resulted labs reviewed. Assessment/Plan Assessment and Plan 81 YO male with septic shock, dt pneumonia, acute respiratory failure, lactic acidosis, CKD3, advanced age, poor prognosis, COPD, pAFIB Septic shock dt pneumonia acute respiratory failure lactic acidosis advanced age poor prognosis Continue IV antibiotics, IV fluids, and oxygen. No pressers will be given per PT's wishes for treatment. CKD3 COPD pAFIB No acute management NIKO BROWN MD 07/24/21 1755: History of Present Illness Source: patient, family Exam Limitations: clinical condition Time Seen by a Provider: 13:30 Past Cthexzg-Dysfkr-Iwixxa Hx Past Medical History COPD Atrial Fibrillation, Hypertension Renal Failure Family Medical History No Pertinent Family Hx Physical Exam Physical Exam General Appearance: No Apparent Distress, Thin Eyes: Right Eye Normal Inspection HEENT: PERRL/EOMI, Other (dry mucous membranes) Neck: Normal Inspection, Supple Respiratory: Lungs Clear, Normal Breath Sounds, No Respiratory Distress Cardiovascular: Regular Rate, Rhythm, No Edema, No Murmur, Normal Peripheral Pulses Gastrointestinal: Normal Bowel Sounds, Non Tender, Soft Extremity: Normal Capillary Refill, Normal Inspection, Non Tender, No Pedal Edema Neurologic/Psychiatric: Alert, Disoriented (did not know his current location), Motor Weakness Skin: Normal Color, Warm/Dry Results Results/Procedures Imaging: Reviewed Imaging Films, Reviewed Imaging Report Assessment/Plan Admission Diagnosis Septic shock due to multifocal pneumonia Admission Status: Inpatient Order (span 2 midnights) Reason for Inpatient Admission: Respiratory failure Shock Assessment and Plan Admitted with septic shock due to multifocal pneumonia with respiratory failure. Started on IV fluids and antibiotics. DNR/DNI, no pressors. Plan and prognosis discussed with patient and son. Critical Care Critically Ill Patient Diagnosis/Problems Diagnosis/Problems (1) Septic shock Status: Acute (2) Multifocal pneumonia Status: Acute (3) Acute respiratory failure with hypoxia Status: Acute (4) Lactic acidosis Status: Acute (5) Poor prognosis Status: Acute (6) CKD (chronic kidney disease) Status: Chronic (7) COPD (chronic obstructive pulmonary disease) Status: Chronic (8) A-fib Status: Chronic Supervisory-Addendum Brief Verification & Attestation Participated in pt care: history, MDM, physical Personally performed: exam, history, MDM, supervision of care Care discussed with: Medical Student Procedures: n/a Results interpretation: Verified all documentation A medical student performed and documented this service in my presence. I reviewed and verified all information documented by the medical student and made modifications to such information, when appropriate. I personally performed the physical exam and medical decision making. CLARITA YAÑEZ Jul 24, 2021 13:54 NIKO BROWN MD Jul 24, 2021 17:55
[2021-07-24] MEDS ORDERED: GABA300C PO (13:55)
[2021-07-24] MEDS ORDERED: ACHD5005 PO (13:55)
[2021-07-24] MEDS ORDERED: ESCI10TA PO (13:55)
[2021-07-24] MEDS ORDERED: GUAI600T43 PO (13:55)
[2021-07-24] MEDS ORDERED: CFTR1V IM (13:55)
[2021-07-24] MEDS ORDERED: SENN-234 PO (13:55)
[2021-07-24] MEDS ORDERED: VIT1CAPS46 PO (13:55)
[2021-07-24] MEDS ORDERED: MELA3TAB39 PO (13:55)
[2021-07-24] MEDS ORDERED: TRM50T PO (13:55)
[2021-07-24] MEDS ORDERED: BISA10SU8 RC (13:55)
[2021-07-24] MEDS ORDERED: MOME13HF2 INH (13:55)
[2021-07-24] MEDS ORDERED: CYAN-41 PO (13:55)
[2021-07-24] MEDS ORDERED: IPRA3AMP31 NEB (13:55)
[2021-07-24] MEDS ORDERED: ALB0.5V INH (13:59)
[2021-07-24] MEDS: CEFEPIME INJECTION 1,000 MG in NS (IVPB) 50 ML IV SCH (16:42)
[2021-07-25] MEDS: CEFEPIME INJECTION 1,000 MG in NS (IVPB) 50 ML IV SCH ×3 (00:14→17:23)
[2021-07-25] MEDS: LACTATED RINGERS 1,000 ML IV SCH ×4 (00:16→21:24)
[2021-07-25] MEDS: RT-ALBUTEROL/IPRATROPIUM 3 ML (DUONEB) VIAL INH SCH ×6 (02:11→22:36)
[2021-07-25 04:47] LABS: BASOPHILS # (AUTO) 0.1 10^3/uL (0.0-0.1); BASOPHILS % (AUTO) 1 % (0-10); EOSINOPHILS # (AUTO) 0.1 10^3/uL (0.0-0.3); EOSINOPHILS % (AUTO) 1 % (0-10); HEMATOCRIT 25 % (40-54); HEMOGLOBIN 8.1 g/dL (13.3-17.7); LYMPHOCYTES # (AUTO) 0.8 10^3/uL (1.0-4.0); LYMPHOCYTES % (AUTO) 5 % (12-44); MEAN CORPUSCULAR HEMOGLOBIN 32 pg (25-34); MEAN CORPUSCULAR HGB CONC 32 g/dL (32-36); MEAN CORPUSCULAR VOLUME 98 fL (80-99); MEAN PLATELET VOLUME 10.1 fL (9.0-12.2); MONOCYTES % (AUTO) 7 % (0-12); NEUTROPHILS # (AUTO) 12.8 10^3/uL (1.8-7.8); NEUTROPHILS % (AUTO) 86 % (42-75); PLATELET COUNT 196 10^3/uL (130-400); WHITE BLOOD COUNT 14.9 10^3/uL (4.3-11.0)
[2021-07-25 05:09] LABS: ALBUMIN 2.5 GM/DL (3.2-4.5); POTASSIUM 3.9 MMOL/L (3.6-5.0)
[2021-07-25 05:10] LABS: CALCIUM 8.3 MG/DL (8.5-10.1)
[2021-07-25 05:12] LABS: TOTAL PROTEIN 5.1 GM/DL (6.4-8.2)
[2021-07-25] MEDS: POTASSIUM CL 10MEQ/50ML IVPB 50 ML IV SCH (05:12)
[2021-07-25 05:13] LABS: BILIRUBIN,TOTAL 0.4 MG/DL (0.1-1.0)
[2021-07-25 05:15] LABS: CREATININE SERUM 1.1 MG/DL (0.60-1.30); PHOSPHORUS 2.2 MG/DL (2.3-4.7)
[2021-07-25 05:18] LABS: MAGNESIUM 1.7 MG/DL (1.6-2.4)
[2021-07-25] MEDS ORDERED: KCL 20 MEQ TAB (K-DUR) PO SCH (06:00)
[2021-07-25] MEDS ORDERED: MAGNESIUM 1 GM/100 ML IVPB 100 ML IV SCH (06:00)
[2021-07-25] MEDS ORDERED: POTASSIUM CL 10MEQ/50ML IVPB 50 ML IV SCH (06:00)
[2021-07-25] MEDS: MAGNESIUM 1 GM/100 ML IVPB 100 ML IV SCH ×3 (06:05→08:01)
[2021-07-25] MEDS: KCL 20 MEQ TAB (K-DUR) PO SCH (06:05)
[2021-07-25] MEDS: AZITHROMYCIN 250 MG TAB (ZITHROMAX) PO SCH (08:56)
[2021-07-25] MEDS ORDERED: VANCOMYCIN 1250 MG/NS 250 ML IVPB IV SCH ×2 (11:00)
--- NOTE | 2021-07-25 11:04 | Progress Note - Hospitalist ---
CLARITA YAÑEZ 07/25/21 1104: Subjective HPI/CC On Admission Date Seen by Provider: Jul 25, 2021 Time Seen by Provider: 08:15 Subjective/Events-last exam PT reports feeling better compared to yesterday. His fevers have improved, and he is not having any episodes of sweating currently. He did mention having night sweats last night. His step son, Dr. Rankin, was in the room with the patient this morning. Patient was able to state the year, month and his location this morning. Review of Systems General: No Chills; Night Sweats (last night) HEENT: No Head Aches, No Visual Changes Pulmonary: Dyspnea (reports "some" shortness of breath), Cough (reports "some") Cardiovascular: No: Chest Pain, Palpitations Gastrointestinal: No: Nausea, Vomiting Musculoskeletal: No: shoulder pain, leg pain Focused Exam Lactate Level 07/24/21 07:55: Lactic Acid Level 2.11*H 07/24/21 11:03: Lactic Acid Level 1.54 Objective Exam Vital Signs Vital Signs Date Time Temp Pulse Resp B/P (MAP) Pulse Ox O2 Delivery O2 Flow Rate FiO2 07/25/21 11:45 93 Vapotherm 15.00 35.00 07/25/21 11:01 40 07/25/21 10:00 75 10 95/53 07/25/21 08:02 36.9 Capillary Refill : Less Than 3 Seconds General Appearance: No Apparent Distress, Chronically ill HEENT: PERRL/EOMI, Moist Mucous Membranes Respiratory: Chest Non Tender, No Accessory Muscle Use, No Respiratory Distress, Rhonci (at left lower sternal boarder ) Cardiovascular: Regular Rate, Rhythm, No Edema, No Murmur Gastrointestinal: Normal Bowel Sounds, No Organomegaly, No Pulsatile Mass, Soft, Tenderness (around location of his suprapubic catheter ) Extremity: Normal Inspection, No Calf Tenderness, No Pedal Edema Neurologic/Psychiatric: Alert, Oriented x3 (did state he was in the "emergency room" and not the ICU, but was able to state he is at the "[facility], [place]. ), No Motor/Sensory Deficits, Normal Mood/Affect Skin: Normal Color, Warm/Dry Results/Procedures Lab Laboratory Tests 07/25/21 04:35 Patient resulted labs reviewed. Imaging: Reviewed Imaging Films, Reviewed Imaging Report Assessment/Plan Assessment and Plan Assess & Plan/Chief Complaint 81 YO male with septic shock dt pneumonia, acute respiratory failure, lactic acidosis, CKD3, advanced age, poor prognosis, COPD, pAFIB Septic shock dt pneumonia acute respiratory failure lactic acidosis advanced age poor prognosis Continue IV antibiotics, IV fluids, and oxygen. No pressers will be given per PT's wishes for treatment. Procalcitonin increased to 5.88 from 0.37 yesterday, currently waiting on blood cultures. Lactic acid down to 1.54 from 2.11 yesterday. CKD3 COPD pAFIB No acute management NIKO BROWN MD 07/25/21 1716: Subjective HPI/CC On Admission Time Seen by Provider: 09:30 Objective Results/Procedures Imaging: Reviewed Imaging Films, Reviewed Imaging Report Assessment/Plan Assessment and Plan Assess & Plan/Chief Complaint Admitted with septic shock due to multifocal pneumonia. Improving this morning. Continue fluids and antibiotics. Guarded prognosis. Critical Care: Critically Ill Patient Diagnosis/Problems Diagnosis/Problems (1) Septic shock Status: Acute (2) Multifocal pneumonia Status: Acute (3) Acute respiratory failure with hypoxia Status: Acute (4) Lactic acidosis Status: Acute (5) Poor prognosis Status: Acute (6) CKD (chronic kidney disease) Status: Chronic (7) COPD (chronic obstructive pulmonary disease) Status: Chronic (8) A-fib Status: Chronic Supervisory-Addendum Brief Verification & Attestation Participated in pt care: history, MDM, physical Personally performed: exam, history, MDM, supervision of care Care discussed with: Medical Student Procedures: n/a Results interpretation: Verified all documentation A medical student performed and documented this service in my presence. I reviewed and verified all information documented by the medical student and made modifications to such information, when appropriate. I personally performed the physical exam and medical decision making. CLARITA YAÑEZ Jul 25, 2021 11:04 NIKO BROWN MD Jul 25, 2021 17:16
[2021-07-25] MEDS: ENOXAPARIN 40 MG/0.4 ML (LOVENOX) SYR SC SCH (11:36)
--- NOTE | 2021-07-25 12:05 | Tele-ICU Progress Note ---
Subjective Date Seen by a Provider: Jul 25, 2021 Time Seen by a Provider: 12:05 Sepsis Event Evaluation Height, Weight, BMI Height: 6'2.00" Weight: 186lbs. oz. 81.475637sz; 23.08 BMI Method: Focused Exam Lactate Level 07/24/21 07:55: Lactic Acid Level 2.11*H 07/24/21 11:03: Lactic Acid Level 1.54 Exam Exam Patient acknowledged, consented, and participated in this virtual visit which was conducted using real time audio/video Vital Signs Date Time Temp Pulse Resp B/P (MAP) Pulse Ox O2 Delivery O2 Flow Rate FiO2 07/25/21 11:45 93 Vapotherm 15.00 35.00 07/25/21 11:01 92 Vapotherm 15.00 40 07/25/21 10:00 75 10 95/53 94 Vapotherm 25.00 70.00 07/25/21 09:30 99 Vapotherm 25.00 50.00 07/25/21 09:06 94 Vapotherm 25.00 60.00 07/25/21 09:00 72 31 101/50 94 Vapotherm 25.00 70.00 07/25/21 08:02 36.9 07/25/21 08:00 69 29 92/53 91 Vapotherm 25.00 70.00 07/25/21 07:45 Vapotherm 25.00 70 07/25/21 07:04 92 Vapotherm 25.00 70 07/25/21 07:00 65 13 92/48 97 Vapotherm 25.00 70.00 07/25/21 07:00 74 07/25/21 06:00 69 22 82/60 98 Vapotherm 25.00 70.00 07/25/21 05:00 67 18 90/47 95 Vapotherm 25.00 70.00 07/25/21 04:00 95 Vapotherm 25.00 70 07/25/21 04:00 37.2 07/25/21 04:00 71 20 95/45 90 Vapotherm 25.00 70.00 07/25/21 03:00 67 18 92/44 95 Vapotherm 25.00 70.00 07/25/21 02:11 92 Vapotherm 25.00 70 07/25/21 02:00 75 17 86/45 92 Vapotherm 25.00 70.00 07/25/21 01:00 67 07/25/21 01:00 67 13 91/62 90 Vapotherm 25.00 70.00 07/25/21 00:27 Vapotherm 25.00 70.00 07/25/21 00:00 67 14 96/46 93 Vapotherm 25.00 80.00 07/25/21 00:00 36.6 07/24/21 23:59 95 Vapotherm 25.00 70 07/24/21 23:22 Vapotherm 25.00 80.00 07/24/21 23:00 72 21 90/52 94 Vapotherm 25.00 60.00 07/24/21 22:36 Vapotherm 25.00 60.00 07/24/21 22:00 64 19 96/49 98 Vapotherm 25.00 70.00 07/24/21 21:59 98 Vapotherm 25.00 70 07/24/21 21:00 70 12 86/46 91 Vapotherm 25.00 70.00 07/24/21 20:30 Vapotherm 25.00 70.00 07/24/21 20:00 95 Vapotherm 25.00 70 07/24/21 20:00 74 20 89/48 97 Vapotherm 25.00 70.00 07/24/21 19:39 36.1 07/24/21 19:00 70 07/24/21 19:00 67 12 94/44 98 Vapotherm 25.00 70.00 07/24/21 18:55 100 Vapotherm 25.00 80 07/24/21 18:00 67 14 89/47 96 Vapotherm 30.00 90.00 07/24/21 17:45 66 17 93/49 98 Vapotherm 30.00 90.00 07/24/21 17:30 65 17 91/45 98 Vapotherm 30.00 90.00 07/24/21 17:15 64 12 88/47 98 Vapotherm 30.00 90.00 07/24/21 17:00 70 20 92/65 100 Vapotherm 30.00 90.00 07/24/21 16:45 66 15 88/46 99 Vapotherm 30.00 90.00 07/24/21 16:30 67 16 92/47 100 Vapotherm 30.00 90.00 07/24/21 16:15 63 15 90/50 98 Vapotherm 30.00 90.00 07/24/21 16:09 96 Vapotherm 30.00 90 07/24/21 16:00 65 12 88/45 97 Vapotherm 30.00 90.00 07/24/21 16:00 36.6 07/24/21 16:00 96 Vapotherm 30.00 90 07/24/21 15:45 68 20 89/56 96 Vapotherm 30.00 90.00 07/24/21 15:30 70 20 95/51 98 Vapotherm 30.00 90.00 07/24/21 15:15 70 17 96/52 97 Vapotherm 30.00 90.00 07/24/21 15:00 66 17 90/46 97 Vapotherm 30.00 90.00 07/24/21 14:45 67 16 84/43 97 Vapotherm 30.00 90.00 07/24/21 14:30 72 15 91/59 97 Vapotherm 30.00 90.00 07/24/21 14:15 67 17 88/50 98 Vapotherm 30.00 90.00 07/24/21 14:00 68 16 84/44 98 Vapotherm 30.00 90.00 07/24/21 13:45 68 15 83/42 97 Vapotherm 30.00 90.00 07/24/21 13:32 75 12 93 Vapotherm 30.00 90.00 07/24/21 13:30 86/44 30.00 90.00 07/24/21 13:17 69 16 98 Vapotherm 30.00 90.00 07/24/21 13:15 91/43 07/24/21 13:02 68 14 98 Vapotherm 30.00 90.00 07/24/21 13:00 73 07/24/21 13:00 70 18 76/42 99 Vapotherm 30.00 90.00 07/24/21 12:47 70 18 98 Vapotherm 30.00 90.00 07/24/21 12:45 70 19 84/47 99 Vapotherm 30.00 90.00 07/24/21 12:32 70 16 95 Vapotherm 30.00 90.00 07/24/21 12:30 75 17 88/42 91 Vapotherm 30.00 90.00 07/24/21 12:24 79/42 07/24/21 12:17 71 17 78/38 97 Vapotherm 30.00 90.00 07/24/21 12:15 72 13 79/38 89 Vapotherm 30.00 90.00 07/24/21 12:08 92 Vapotherm 40.00 80 I & O 07/25/21 07:00 Intake Total 3750 ml Output Total 1275 ml Balance 2475 ml Height & Weight Height: 6'2.00" Weight: 186lbs. oz. 81.891199tc; 23.08 BMI Method: General Appearance: No Apparent Distress, Chronically ill HEENT: PERRL/EOMI, Moist Mucous Membranes Neck: Normal Inspection, Supple Respiratory: Chest Non Tender, No Accessory Muscle Use, No Respiratory Distress, Rhonci (at left lower sternal boarder ) Cardiovascular: Regular Rate, Rhythm, No Edema, No Murmur Capillary Refill: Less Than 3 Seconds Gastrointestinal: normal bowel sounds, non tender, soft; No distended, No guarding Extremity: Normal Inspection, No Calf Tenderness, No Pedal Edema Neurologic/Psychiatric: Alert, Oriented x3 (did state he was in the "emergency room" and not the ICU, but was able to state he is at the [facility]. ), No Motor/Sensory Deficits, Normal Mood/Affect Skin: Normal Color, Warm/Dry Results Lab Laboratory Tests 07/24/21 07:55 07/25/21 04:35 Assessment/Plan Assessment/Plan (Tele-ICU Physician , Progress Note ) Available chart/ vitals / labs / Images reviewed Video assessment done using teleICU camera, rest of exam as per RN Discussed with RN , EXAM PER RN Events overnight : FEBRILE 37.2 FiO2 -VT I/O = pos 1700 Drips: Pressors: , hemodynamically stable Consultants: Hospital course: 07/24 - from NH with fever and SOB , hypotension , BIPAP -> VT 07/25 - VT 25 L 70% A/P Acute resp failure , ( no PE on CT 07/24 ) - on BIPAP 01/04 40 % rr 20 tv 600 MV 2 L - tolerates well - will try VT Sepsis - received 2 L NS , cont hydration PNA , LLL - ( flu and covid negative ) - cefepime + vanco started 07/24 UTI - abx , cx pending ( Suprapubic catheter ) PAF h/o , sinus now - OFF AC CKD - stable Anemia - Hb trending down - delutional Suprapubic catheter ( replaced on Thursday ) - Ct with Moderate pneumoperitoneum presumably related to this Lines : (Central Line Necessity Reviewed) Gunderson: chronic Suprapubic catheter OG: Nutrition: Analgesia: Anxiety/ delirium VTE Prophylaxis: lovenox 40 Stress Ulcer Prophylaxis: Glycemic Control: Plans in collaboration with bedside consultants and IM MDs. Discussed with RN to reach out if any questions or concerns A total of 33 minutes of critical care time was devoted to this patient today, required to treat and/or prevent further deterioration of critical care condition ( as above ) . JOSÉ MIGUEL ZAMORANO MD Jul 25, 2021 12:05
[2021-07-26] MEDS: CEFEPIME INJECTION 1,000 MG in NS (IVPB) 50 ML IV SCH ×3 (01:14→17:22)
[2021-07-26] MEDS: RT-ALBUTEROL/IPRATROPIUM 3 ML (DUONEB) VIAL INH SCH ×6 (03:20→21:40)
[2021-07-26 04:46] LABS: BASOPHILS % (AUTO) 0 % (0-10); EOSINOPHILS # (AUTO) 0.1 10^3/uL (0.0-0.3); EOSINOPHILS % (AUTO) 1 % (0-10); HEMATOCRIT 25 % (40-54); LYMPHOCYTES # (AUTO) 0.7 10^3/uL (1.0-4.0); LYMPHOCYTES % (AUTO) 6 % (12-44); MEAN CORPUSCULAR HEMOGLOBIN 31 pg (25-34); MEAN CORPUSCULAR HGB CONC 32 g/dL (32-36); MEAN CORPUSCULAR VOLUME 97 fL (80-99); MEAN PLATELET VOLUME 10.2 fL (9.0-12.2); MONOCYTES # (AUTO) 1.1 10^3/uL (0.0-1.0); MONOCYTES % (AUTO) 9 % (0-12); NEUTROPHILS # (AUTO) 9.5 10^3/uL (1.8-7.8); NEUTROPHILS % (AUTO) 82 % (42-75); PLATELET COUNT 192 10^3/uL (130-400); WHITE BLOOD COUNT 11.6 10^3/uL (4.3-11.0)
[2021-07-26 05:02] LABS: ALBUMIN 2.6 GM/DL (3.2-4.5); POTASSIUM 3.6 MMOL/L (3.6-5.0)
[2021-07-26 05:03] LABS: CALCIUM 8.5 MG/DL (8.5-10.1)
[2021-07-26 05:05] LABS: TOTAL PROTEIN 5.3 GM/DL (6.4-8.2)
[2021-07-26 05:06] LABS: BILIRUBIN,TOTAL 0.4 MG/DL (0.1-1.0)
[2021-07-26 05:08] LABS: CREATININE SERUM 1.13 MG/DL (0.60-1.30); PHOSPHORUS 2.5 MG/DL (2.3-4.7)
[2021-07-26 05:11] LABS: MAGNESIUM 1.8 MG/DL (1.6-2.4)
[2021-07-26] MEDS: LACTATED RINGERS 1,000 ML IV SCH ×3 (05:18→20:21)
[2021-07-26] MEDS: POTASSIUM CL 10MEQ/50ML IVPB 50 ML IV SCH (05:27)
[2021-07-26] MEDS: MAGNESIUM 1 GM/100 ML IVPB 100 ML IV SCH (05:27)
[2021-07-26] MEDS: KCL 20 MEQ TAB (K-DUR) PO SCH (05:27)
[2021-07-26] MEDS: AZITHROMYCIN 250 MG TAB (ZITHROMAX) PO SCH (08:25)
[2021-07-26] MEDS ORDERED: KCL 20 MEQ TAB (K-DUR) PO ONE (09:00)
[2021-07-26] MEDS ORDERED: TROUGH ORDER-PHARMACY XX NR (10:00)
--- NOTE | 2021-07-26 10:24 | Pulmonary Progress Note ---
TRINO BUITRAGO 07/26/21 1024: Subjective Subjective/Events-last exam The patient is resting comfortably this morning and states that he feels much improved overall. He notes that his breathing has greatly improved and that he is feeling better. Review of Systems General: No Chills, No Night Sweats HEENT: No Head Aches, No Visual Changes Pulmonary: No Dyspnea; Cough; No Pleuritic Chest Pain Cardiovascular: No: Chest Pain, Palpitations Gastrointestinal: No: Nausea, Vomiting, Abdominal Pain Genitourinary: No Dysuria, No Frequency Musculoskeletal: No: other, neck pain, shoulder pain, arm pain, back pain, hand pain, leg pain, foot pain Neurological: No: Weakness, Numbness Exam Exam Patient acknowledged, consented, and participated in this virtual visit which was conducted using real time audio/video Vital Signs Date Time Temp Pulse Resp B/P (MAP) Pulse Ox O2 Delivery O2 Flow Rate FiO2 07/26/21 09:00 74 16 122/66 94 High Flow N/C 2.00 07/26/21 08:00 37.1 07/26/21 08:00 79 19 127/59 94 High Flow N/C 2.00 07/26/21 08:00 High Flow N/C 2.00 07/26/21 07:16 95 High Flow N/C 1.00 07/26/21 07:15 97 High Flow N/C 2.00 07/26/21 07:00 63 07/26/21 07:00 61 14 120/68 99 High Flow N/C 2.00 07/26/21 06:00 71 31 118/53 96 High Flow N/C 2.00 07/26/21 05:00 72 21 121/66 97 High Flow N/C 2.00 07/26/21 04:00 70 32 127/64 97 High Flow N/C 2.00 07/26/21 04:00 99 High Flow N/C 2.00 07/26/21 03:23 97 High Flow N/C 2.00 07/26/21 03:00 65 17 122/60 99 High Flow N/C 2.00 07/26/21 02:00 68 16 118/76 98 High Flow N/C 2.00 07/26/21 01:00 71 07/26/21 01:00 71 12 125/92 98 High Flow N/C 2.00 07/26/21 00:34 67 21 126/65 99 High Flow N/C 2.00 07/26/21 00:00 37.0 07/25/21 23:59 99 High Flow N/C 2.00 07/25/21 23:00 69 19 111/50 96 High Flow N/C 2.00 07/25/21 22:36 96 Nasal Cannula 2.00 07/25/21 22:00 67 18 115/62 100 High Flow N/C 2.00 07/25/21 21:00 75 18 108/77 96 High Flow N/C 2.00 07/25/21 20:08 77 10 122/60 98 High Flow N/C 2.00 07/25/21 20:00 36.8 07/25/21 20:00 High Flow N/C 2.00 07/25/21 19:00 82 07/25/21 19:00 82 16 92 High Flow N/C 2.00 07/25/21 18:44 94 Room Air 07/25/21 16:00 High Flow N/C 2.00 07/25/21 16:00 37.1 07/25/21 15:30 95 High Flow N/C 2.00 07/25/21 15:25 94 High Flow N/C 3.00 07/25/21 14:15 99 High Flow N/C 3.00 07/25/21 13:30 93 Vapotherm 15.00 30.00 07/25/21 13:00 75 07/25/21 13:00 74 14 112/65 95 Vapotherm 15.00 35.00 07/25/21 12:30 Vapotherm 15.00 35 07/25/21 12:00 74 13 104/55 93 Vapotherm 15.00 35.00 07/25/21 11:45 93 Vapotherm 15.00 35.00 07/25/21 11:01 92 Vapotherm 15.00 40 07/25/21 11:00 70 19 101/52 97 Vapotherm 25.00 50.00 I & O 07/26/21 06:59 Intake Total 2400 ml Output Total 2250 ml Balance 150 ml Height & Weight Height: 6'2.00" Weight: 186lbs. oz. 81.916714rd; 23.08 BMI Method: General Appearance: No Apparent Distress, Chronically ill HEENT: PERRL/EOMI, Moist Mucous Membranes Neck: Normal Inspection, Supple Respiratory: Chest Non Tender, No Accessory Muscle Use, No Respiratory Distress, Decreased Breath Sounds, Rhonci (at left lower sternal boarder ) Cardiovascular: Regular Rate, Rhythm, No Edema, No Murmur Capillary Refill: Less Than 3 Seconds Gastrointestinal: normal bowel sounds, non tender, soft; No distended, No guarding Extremity: Normal Inspection, No Calf Tenderness, No Pedal Edema Neurologic/Psychiatric: Alert, Oriented x3 (did state he was in the "emergency room" and not the ICU, but was able to state he is at the "[facility]. ), No Motor/Sensory Deficits, Normal Mood/Affect Skin: Normal Color, Warm/Dry Results Lab Laboratory Tests 07/25/21 04:35 07/26/21 04:37 Assessment/Plan Assessment/Plan Acute respiratory failure: * Currenty on 2 L high flow NC with good saturations Pneumonia: * Currently on Vanc, Cefepime, and Zithro * Leukocytosis improving UTI: * On abx, cultures pending FESTUS VIVEROS MD 07/26/21 1235: Subjective Date Seen by a Provider: Jul 26, 2021 Time Seen by a Provider: 12:30 Exam Exam Other comments VIDEO VISIT MADE AND SUPERVISED THE MEDICAL STUDENT. Assessment/Plan Assessment/Plan AGREE WITH THE ABOE ASSESSMENT. Supervisory-Addendum Brief Verification & Attestation Participated in pt care: history Personally performed: history, supervision of care Care discussed with: Medical Student Procedures: n/a Results interpretation: Verified all documentation I PERSONALLY DISCUSED WITH MEDICAL STUDENT AND SUPERVISED HIS ASSESSMENT VIA VIDEO VISIT AND PARTICIPATED IN FORMULATION OF CARE TRINO BUITRAGO Jul 26, 2021 10:24 FESTUS VIVEROS MD Jul 26, 2021 12:35
[2021-07-26] MEDS: ENOXAPARIN 40 MG/0.4 ML (LOVENOX) SYR SC SCH (11:23)
--- NOTE | 2021-07-26 11:54 | Progress Note - Hospitalist ---
CLARITA YAÑEZ 07/26/21 1154: Subjective HPI/CC On Admission Date Seen by Provider: Jul 26, 2021 Time Seen by Provider: 08:00 Subjective/Events-last exam The patient was laying in bed comfortably this morning he reports that his breathing is better compared to yesterday. He reports that he has no pain. He denies complaints of fevers. He reports that he is still coughing. Review of Systems General: No Chills, No Night Sweats HEENT: No Head Aches, No Visual Changes Pulmonary: No Dyspnea; Cough (reports some cough) Gastrointestinal: No: Diarrhea, Constipation Genitourinary: No Hematuria Musculoskeletal: No: shoulder pain, leg pain Focused Exam Lactate Level 07/24/21 07:55: Lactic Acid Level 2.11*H 07/24/21 11:03: Lactic Acid Level 1.54 Objective Exam Vital Signs Vital Signs Date Time Temp Pulse Resp B/P (MAP) Pulse Ox O2 Delivery O2 Flow Rate FiO2 07/26/21 12:00 High Flow N/C 2.00 07/26/21 11:47 37.4 07/26/21 10:47 97 07/26/21 09:00 74 16 122/66 07/25/21 12:30 35 Capillary Refill : Less Than 3 Seconds General Appearance: No Apparent Distress, Chronically ill HEENT: PERRL/EOMI, Pharynx Normal, Moist Mucous Membranes Respiratory: Chest Non Tender, Lungs Clear, Normal Breath Sounds, No Accessory Muscle Use, No Respiratory Distress Cardiovascular: Regular Rate, Rhythm, No Murmur Gastrointestinal: No Organomegaly, No Pulsatile Mass, Non Tender, Soft Extremity: No Calf Tenderness, No Pedal Edema Neurologic/Psychiatric: Alert, Oriented x3, No Motor/Sensory Deficits, Normal Mood/Affect Skin: Normal Color, Warm/Dry Results/Procedures Lab Laboratory Tests 07/26/21 04:37 Patient resulted labs reviewed. Imaging: Reviewed Imaging Films, Reviewed Imaging Report Assessment/Plan Assessment and Plan Assess & Plan/Chief Complaint 81 YO male with septic shock dt pneumonia, acute respiratory failure, lactic acidosis, CKD3, advanced age, poor prognosis, COPD, pAFIB Septic shock dt pneumonia acute respiratory failure lactic acidosis advanced age poor prognosis Continue IV Cefepime, PO Azithromycin, IV fluids, and oxygen. DC IV Vancomycin today. No pressers will be given per PT's wishes for treatment. The patient will move to the floor today to continue his recovery. CKD3 COPD pAFIB No acute management NIKO BROWN MD 07/26/21 1733: Subjective HPI/CC On Admission Time Seen by Provider: 09:30 Assessment/Plan Assessment and Plan Assess & Plan/Chief Complaint Septic shock resolved. Continue treatment for pneumonia. Respiratory failure improving, oxygen requirement decreasing. Transfer to medical floor. Diagnosis/Problems Diagnosis/Problems (1) Septic shock Status: Resolved Resolution Date/Time: 07/26/21 @ 17:32 (2) Multifocal pneumonia Status: Acute (3) Acute respiratory failure with hypoxia Status: Acute (4) Lactic acidosis Status: Resolved Resolution Date/Time: 07/26/21 @ 17:32 (5) CKD (chronic kidney disease) Status: Chronic (6) A-fib Status: Chronic (7) COPD (chronic obstructive pulmonary disease) Status: Chronic Supervisory-Addendum Brief Verification & Attestation Participated in pt care: history, MDM, physical Personally performed: exam, history, MDM, supervision of care Care discussed with: Medical Student Procedures: n/a Results interpretation: Verified all documentation A medical student performed and documented this service in my presence. I reviewed and verified all information documented by the medical student and made modifications to such information, when appropriate. I personally performed the physical exam and medical decision making. CLARITA YAÑEZ Jul 26, 2021 11:54 NIKO BROWN MD Jul 26, 2021 17:33
--- NOTE | 2021-07-26 12:29 | Tele-ICU Progress Note ---
Subjective Date Seen by a Provider: Jul 26, 2021 Time Seen by a Provider: 12:28 Subjective/Events-last exam Patient today resting comfortably. He denies any complaints. Vital signs are stable. Discussed with the medical student and I reviewed the assessment. I have made a video visit and assisted the patient to wear telemetry ICU camera. Review of Systems ROS PER RN Sepsis Event Evaluation Height, Weight, BMI Height: 6'2.00" Weight: 186lbs. oz. 81.455133av; 23.08 BMI Method: Focused Exam Lactate Level 07/24/21 07:55: Lactic Acid Level 2.11*H 07/24/21 11:03: Lactic Acid Level 1.54 Exam Exam Patient acknowledged, consented, and participated in this virtual visit which was conducted using real time audio/video Vital Signs Date Time Temp Pulse Resp B/P (MAP) Pulse Ox O2 Delivery O2 Flow Rate FiO2 07/26/21 11:47 37.4 07/26/21 10:47 97 High Flow N/C 2.00 07/26/21 09:00 74 16 122/66 94 High Flow N/C 2.00 07/26/21 08:00 37.1 07/26/21 08:00 79 19 127/59 94 High Flow N/C 2.00 07/26/21 08:00 High Flow N/C 2.00 07/26/21 07:16 95 High Flow N/C 1.00 07/26/21 07:15 97 High Flow N/C 2.00 07/26/21 07:00 63 07/26/21 07:00 61 14 120/68 99 High Flow N/C 2.00 07/26/21 06:00 71 31 118/53 96 High Flow N/C 2.00 07/26/21 05:00 72 21 121/66 97 High Flow N/C 2.00 07/26/21 04:00 70 32 127/64 97 High Flow N/C 2.00 07/26/21 04:00 99 High Flow N/C 2.00 07/26/21 03:23 97 High Flow N/C 2.00 07/26/21 03:00 65 17 122/60 99 High Flow N/C 2.00 07/26/21 02:00 68 16 118/76 98 High Flow N/C 2.00 07/26/21 01:00 71 07/26/21 01:00 71 12 125/92 98 High Flow N/C 2.00 07/26/21 00:34 67 21 126/65 99 High Flow N/C 2.00 07/26/21 00:00 37.0 07/25/21 23:59 99 High Flow N/C 2.00 07/25/21 23:00 69 19 111/50 96 High Flow N/C 2.00 07/25/21 22:36 96 Nasal Cannula 2.00 07/25/21 22:00 67 18 115/62 100 High Flow N/C 2.00 07/25/21 21:00 75 18 108/77 96 High Flow N/C 2.00 07/25/21 20:08 77 10 122/60 98 High Flow N/C 2.00 07/25/21 20:00 36.8 07/25/21 20:00 High Flow N/C 2.00 07/25/21 19:00 82 07/25/21 19:00 82 16 92 High Flow N/C 2.00 07/25/21 18:44 94 Room Air 07/25/21 16:00 High Flow N/C 2.00 07/25/21 16:00 37.1 07/25/21 15:30 95 High Flow N/C 2.00 07/25/21 15:25 94 High Flow N/C 3.00 07/25/21 14:15 99 High Flow N/C 3.00 07/25/21 13:30 93 Vapotherm 15.00 30.00 07/25/21 13:00 75 07/25/21 13:00 74 14 112/65 95 Vapotherm 15.00 35.00 07/25/21 12:30 Vapotherm 15.00 35 I & O 07/26/21 07:00 Intake Total 2400 ml Output Total 2250 ml Balance 150 ml Height & Weight Height: 6'2.00" Weight: 186lbs. oz. 81.974769ui; 23.08 BMI Method: General Appearance: No Apparent Distress, Chronically ill HEENT: PERRL/EOMI, Pharynx Normal, Moist Mucous Membranes Neck: Normal Inspection, Supple Respiratory: Chest Non Tender, Lungs Clear, Normal Breath Sounds, No Accessory Muscle Use, No Respiratory Distress Cardiovascular: Regular Rate, Rhythm, No Murmur Capillary Refill: Less Than 3 Seconds Gastrointestinal: normal bowel sounds, non tender, soft; No distended, No guarding Extremity: No Calf Tenderness, No Pedal Edema Neurologic/Psychiatric: Alert, Oriented x3, No Motor/Sensory Deficits, Normal Mood/Affect Skin: Normal Color, Warm/Dry Other comments PE PER RN Results Lab Laboratory Tests 07/25/21 04:35 07/26/21 04:37 Assessment/Plan Assessment/Plan 1. Septic shock improved. 2. Hypoxic respiratory failure improved. 3. Pneumonia left lower lobe clinically improving. 4. Urinary tract infection due to suprapubic catheter with underlying neurogenic bladder. 5. History of for paroxysmal atrial fibrillation currently in sinus rhythm. Off anticoagulant therapy. Recommendations continue antibiotic therapy with the cefepime and oral azithromycin 2. Lovenox for DVT prophylaxis. 3. Supplemental oxygen via nasal cannula. 4. Hydrate patient with lactated Ringer's. 5. From critical care point of view he may be transferred to medical floor. Critical Care: Critically Ill Patient Time spent with patient (mins): 20 FESTUS VIVEROS MD Jul 26, 2021 12:29
[2021-07-26] MEDS ORDERED: hydrOXYzine (VISTARIL/ATARAX) 25 MG capsule/tablet PO ONE (19:15)
[2021-07-27] MEDS: CEFEPIME INJECTION 1,000 MG in NS (IVPB) 50 ML IV SCH ×3 (01:55→16:44)
[2021-07-27] MEDS: RT-ALBUTEROL/IPRATROPIUM 3 ML (DUONEB) VIAL INH SCH ×6 (02:30→22:21)
[2021-07-27 06:18] LABS: POTASSIUM 4.1 MMOL/L (3.6-5.0)
[2021-07-27 06:19] LABS: CALCIUM 8.8 MG/DL (8.5-10.1)
[2021-07-27 06:25] LABS: MAGNESIUM 1.8 MG/DL (1.6-2.4)
[2021-07-27] MEDS: POTASSIUM CL 10MEQ/50ML IVPB 50 ML IV SCH (06:25)
[2021-07-27] MEDS: KCL 20 MEQ TAB (K-DUR) PO SCH (06:25)
[2021-07-27] MEDS: MAGNESIUM 1 GM/100 ML IVPB 100 ML IV SCH (06:37)
--- NOTE | 2021-07-27 08:23 | Progress Note - Hospitalist ---
CLARITA YAÑEZ 07/27/21 0823: Subjective HPI/CC On Admission Date Seen by Provider: Jul 27, 2021 Time Seen by Provider: 08:30 Subjective/Events-last exam The patient was in bed this morning. He did appear to be more anxious and confused compared to yesterday. He denies any pain, but did mention feeling "pressure" in his left leg. He denies any complaints with his breathing. He does mention coughing up some phlegm. The patient was able to state he is in [place], but mentioned he was in the "emergency room". He was not able to state the year or month. Review of Systems Cardiovascular: No: Chest Pain, Palpitations Gastrointestinal: No: Nausea, Vomiting Musculoskeletal: other (left leg "pressure") Neurological: No: Weakness, Numbness Focused Exam Lactate Level Objective Exam Vital Signs Vital Signs Date Time Temp Pulse Resp B/P (MAP) Pulse Ox O2 Delivery O2 Flow Rate FiO2 07/27/21 10:53 95 Nasal Cannula 2.00 07/27/21 07:28 36.8 71 20 141/57 07/25/21 12:30 35 Capillary Refill : Less Than 3 Seconds General Appearance: WD/WN, Anxious HEENT: PERRL/EOMI, Pharynx Normal, Moist Mucous Membranes Respiratory: Chest Non Tender, Lungs Clear, Normal Breath Sounds, No Accessory Muscle Use, No Respiratory Distress Cardiovascular: Regular Rate, Rhythm, No Edema, No Murmur, Normal Peripheral Pulses Gastrointestinal: Normal Bowel Sounds, No Organomegaly, No Pulsatile Mass, Non Tender, Soft Extremity: No Calf Tenderness, No Pedal Edema Skin: Normal Color, Warm/Dry Results/Procedures Lab Laboratory Tests 07/27/21 05:20 Patient resulted labs reviewed. Imaging: Reviewed Imaging Films, Reviewed Imaging Report Assessment/Plan Assessment and Plan Assess & Plan/Chief Complaint 81 YO male recovering from septic shock dt pneumonia, acute respiratory failure, lactic acidosis. Possible hospital acquired delirium. Hx of of CKD3, advanced age, poor prognosis, COPD, pAFIB Septic shock dt pneumonia acute respiratory failure lactic acidosis Confusion Continue IV Cefepime, PO Azithromycin, IV fluids, and oxygen. The patient will continue on 4th floor today, and will try to DC on Thursday. CKD3 COPD pAFIB advanced age poor prognosis No acute management NIKO BROWN MD 07/27/21 1422: Subjective HPI/CC On Admission Time Seen by Provider: 10:55 Objective Exam General Appearance: No Apparent Distress, Chronically ill, Thin Respiratory: No Respiratory Distress, Decreased Breath Sounds Cardiovascular: Regular Rate, Rhythm, No Edema, No Murmur Gastrointestinal: Normal Bowel Sounds, Non Tender, Soft Extremity: Normal Inspection, No Pedal Edema Neurologic/Psychiatric: Alert, Disoriented, Motor Weakness Skin: Normal Color, Warm/Dry Assessment/Plan Assessment and Plan Assess & Plan/Chief Complaint Continue antibiotics. Respiratory failure and pneumonia improving. PT/OT consulted for therapy needs. Likely discharge back to [facility] on Thursday. Diagnosis/Problems Diagnosis/Problems (1) Acute respiratory failure with hypoxia Status: Acute (2) Multifocal pneumonia Status: Acute (3) CKD (chronic kidney disease) Status: Chronic (4) A-fib Status: Chronic (5) COPD (chronic obstructive pulmonary disease) Status: Chronic (6) Septic shock Status: Resolved Resolution Date/Time: 07/26/21 @ 17:32 (7) Lactic acidosis Status: Resolved Resolution Date/Time: 07/26/21 @ 17:32 Supervisory-Addendum Brief Verification & Attestation Participated in pt care: history, MDM, physical Personally performed: exam, history, MDM, supervision of care Care discussed with: Medical Student Procedures: n/a Results interpretation: Verified all documentation A medical student performed and documented this service in my presence. I reviewed and verified all information documented by the medical student and made modifications to such information, when appropriate. I personally performed the physical exam and medical decision making. CLARITA YAÑEZ Jul 27, 2021 08:23 NIKO BROWN MD Jul 27, 2021 14:22
[2021-07-27] MEDS: AZITHROMYCIN 250 MG TAB (ZITHROMAX) PO SCH (10:24)
[2021-07-27] MEDS: LACTATED RINGERS 1,000 ML IV SCH (10:24)
--- NOTE | 2021-07-27 10:24 | Physical Therapy Evaluation ---
PT Evaluation-General Medical Diagnosis Admission Date Jul 24, 2021 at 09:54 Medical Diagnosis: respiratory distress Onset Date: Jul 24, 2021 Therapy Diagnosis Therapy Diagnosis: decreased mobility Height/Weight Height (Feet): 6 Height (Inches): 2.00 Weight (Pounds): 186 Precautions Precautions/Isolations: Fall Prevention, Standard Precautions Weight Bear Status Right Lower Extremity: Right Full Weight Bearing Left Lower Extremity: Left Full Weight Bearing Referral Physician: Dr. Meng Reason for Referral: Evaluation/Treatment Medical History Pertinent Medical History: Atrial Fib, COPD, Neuropathy Additional Medical History neurogenic bladder Current History Pt. arrived to ER from [facility] with respiratory distress. Social History Home: Retirement Prior Prior Level of Function SCALE: Activities may be completed with or without assistive devices. 6-Bozpaoyjcl-rsmrnsd completes the activity by him/herself with no assistance from a helper. 5-Set-up or Clean-up Assistance-helper sets up or cleans up; patient completes activity. [place] assists only prior to or following the activity. 4-Supervision or Touching Assistance-helper provides verbal cues and/or touching/steadying and/or contact guard assistance as patient completes activity. Assistance may be provided throughout the activity or intermittently. 3-Partial/Moderate Assistance-helper does LESS THAN HALF the effort. [place] lifts, holds or supports trunk or limbs, but provides less than half the effort. 2-Substantial/Maximal Assistance-helper does MORE THAN HALF the effort. [place] lifts or holds trunk or limbs and provides more than half the effort. 6-Xtpvuywsd-umfpom does ALL the effort. Patient does none of the effort to complete the activity. Or, the assistance of 2 or more helpers is required for the patient to complete the activity. If activity was not attempted, code reason: 7-Patient Refused. 9-Not Applicable-not attempted and the patient did not perform the activity before the current illness, exacerbation or injury. 10-Not Attempted due to Environmental Limitations-(lack of equipment, weather restraints, etc.). 88-Not Attempted due to Medical Conditions or Safety Concerns. Bed Mobility: 6 Transfers (B,C,W/C): 6 Gait: 6 Prior Devices Use: Walker PT Evaluation-Current Subjective Pt. is confused, continually asks about his "green clogs" and states "I can't walk without them. I'll just if you don't find them." Pt. states the only pain is has if from overeating but says he has to eat, he refuses to let therapist remove his breakfast tray even though it is empty. Pt. frequently says during session "I don't want to ." Objective Patient Orientation: Confused Attachments: Oxygen, Suprapubic Catheter, IV ROM/Strength ROM Upper Extremities WNL ROM Lower Extremities WNL Strength Upper Extremities See OT Strength Lower Extremities Grossly 4/5 (B) Integumentary/Posture Integumentary grossly intact Bowel Incontinence: No Neuromuscular (Tone, Coordination, Reflexes) diminished Sensory Vision: Functional Hearing: Functional Sensation Right Upper Extremit: Intact Sensation Left Upper Extremity: Intact Sensation Right Lower Extremit: Impaired Sensation Left Lower Extremity: Impaired Transfers Sit to Lying (QC): 4 Lying to Sitting/Side of Bed(Q: 4 Sit to Stand (QC): 4 Gait Does the Patient Walk?: No and Walking Goal IS indicated Mode of Locomotion: Walk Anticipated Mode of Locomotion: Walk Assessment/Needs Pt. is an 81 y.o. male who presents with generalized weakness and decreased mobility. Pt. is confused and limits gait today due to not having the right shoes. Pt. is currently CGA/SBA with transfers and will hopefully be able to am bulate with his shoes (does not have them in his room at evaluation). Pt. would benefit from skilled PT to improve mobility and safety, likely return to skilled nursing. Rehab Potential: Fair PT Short Term Goals Short Term Goals Time Frame: Aug 03, 2021 Roll Left & Right: 6 Sit to lyin Lying to sitting on side of be: 6 Sit to stand: 6 Chair/[id number]-um-oxplq transfer: 4 Walk 10 feet: 4 Walk 50 feet with two turns: 4 Walk 150 feet: 4 PT Plan Problem List Problem List: Activity Tolerance, Functional Strength, Safety, Balance, Gait, Transfer, Bed Mobility, ROM Treatment/Plan Treatment Plan: Continue Plan of Care Treatment Plan: Bed Mobility, Education, Functional Activity Molly, Functional Strength, Gait, Safety, Therapeutic Exercise, Transfers Treatment Duration: Aug 03, 2021 Frequency: 6 times per week Estimated Hrs Per Day: .25 hour per day Patient and/or Family Agrees t: Yes Time/GCodes Time In: 0958 Time Out: 1018 Total Billed Treatment Time: 20 Total Billed Treatment 1, EVH 10', FA 10' PARTHA KERR PT Jul 27, 2021 10:24
--- NOTE | 2021-07-27 10:40 | Occupational Therapy Eval ---
OT Evaluation-General/PLF Medical Diagnosis Admission Date Jul 24, 2021 at 09:54 Medical Diagnosis: Sepsis, pnemonia Onset Date: Jul 26, 2021 Therapy Diagnosis Therapy Diagnosis: Impaired cognition, safety, endurance, adls Height/Weight Height (Feet): 6 Height (Inches): 2.00 Weight (Pounds): 186 Precautions Precautions/Isolations: Fall Prevention, Standard Precautions Referral Physician: Taqueria Referral Reason: Evaluation/Treatment Medical History Pertinent Medical History: Atrial Fib, COPD, Neuropathy Current History Per ER note, the patient began experiencing respiratory distress 2 days ago. He was satting in the 80s, and was given 5L of oxygen with little improvement. Found to have pneumonia. Pt confused and is a poor historian. No family present to verify accuracy of responses. Per chart, pt living in [facility]ci in [place]. Unsure of assist needed for ADLs/transfers. Pt reports needing a brace and green shoes to ambulate. Brace currently present in room, no shoes available. Reviewed History: Yes Social History Home: [facility] ADL-Prior Level of Function SCALE: Activities may be completed with or without assistive devices. 7-Kzylenqtfd-mxiqpys completes the activity by him/herself with no assistance from a helper. 5-Set-up or Clean-up Assistance-helper sets up or cleans up; patient completes activity. [place] assists only prior to or following the activity. 4-Supervision or Touching Assistance-helper provides verbal cues and/or touching/steadying and/or contact guard assistance as patient completes activity. Assistance may be provided throughout the activity or intermittently. 3-Partial/Moderate Assistance-helper does LESS THAN HALF the effort. [place] lifts, holds or supports trunk or limbs, but provides less than half the effort. 2-Substantial/Maximal Assistance-helper does MORE THAN HALF the effort. [place] lifts or holds trunk or limbs and provides more than half the effort. 9-Ukkkqvrsy-nsisqr does ALL the effort. Patient does none of the effort to complete the activity. Or, the assistance of 2 or more helpers is required for the patient to complete the activity. If activity was not attempted, code reason: 7-Patient Refused. 9-Not Applicable-not attempted and the patient did not perform the activity before the current illness, exacerbation or injury. 10-Not Attempted due to Environmental Limitations-(lack of equipment, weather restraints, etc.). 88-Not Attempted due to Medical Conditions or Safety Concerns. Self Care: Unknown Functional Cognition: Needed Some Help OT Current Status Subjective Pt very confused. Tangential communication. Appears paranoid. Difficult time focusing. Appearance Left supine in bed, all needs within reach. Mental Status/Objective Patient Orientation: Person, Confused Attachments: IV, Oxygen, Other-See Comments (suprapubic cath) Current Glasses/Contacts: Yes Hearing Aids: No Upper Extremity ROM Unable to follow directions, elbow-distally appear WNL. Able to manipulate phone and bring silverware to mouth. ADL-Treatment Eating (QC): 6 Toileting Hygiene (QC): 1 (suprpubic catheter) Pt reports fear of dying at OT arrival. Appears paranoid and would not let go of his phone throughout treatment. Able to sit EOB with CGA after lengthy time to i nitiate task. He refused to stand/ambulate secondary to not having "green shoes" present in room. Limited assessment due to Pt having difficult time focusing on therapist requests. Education OT Patient Education: Correct positioning, Modified ADL techniques, Purpose of tx/functional activities, Safety issues, Transfer techniques Teaching Recipient: Patient Teaching Methods: Discussion Response to Teaching: Reinforcement Needed OT Skilled Nursing Goals Arts Administrator Goals Time Frame: Aug 10, 2021 Eating (QC): 6 Oral Hygiene (QC): 6 Toileting Hygiene (QC): 4 Shower/Bathe Self (QC): 3 Upper Body Dressing (QC): 4 Lower Body Dressing (QC): 4 On/Off Footwear (QC): 4 1=Demonstrate adherence to instructed precautions during ADL tasks. 2=Patient will verbalize/demonstrate understanding of assistive devices/modifications for ADL. 3=Patient will improve strength/tolerance for activity to enable patient to perform ADL's. OT Education/Plan Problem List/Assessment Assessment: Decreased Activ Tolerance, Decreased Safety Aware, Impaired Cognition, Impaired Self-Care Skills Discharge Recommendations Plan/Recommendations: Continue POC Therapy Discharge Recommendati: 24 Hour Supervision, Post Acute OT Comment ongoing assessment Treatment Plan/Plan of Care Treatment,Training & Education: Yes Patient would benefit from OT for education, treatment and training to promote independence in ADL's, mobility, safety and/or upper extremity function for ADL's. Plan of Care: ADL Retraining, Caregiver Training, Functional Mobility, Group Exercise/Act as Ind, UE Funct Exercise/Act, W/C Management Training Treatment Duration: Aug 10, 2021 Frequency: 3 times per week Estimated Hrs Per Day: .25 hour per day Rehab Potential: Guarded 3-5x/week Time/GCodes Start Time: 10:23 Stop Time: 10:33 Total Time Billed (hr/min): 10 Billed Treatment Time 1 visit Shalini Feliciano OT Jul 27, 2021 10:40
[2021-07-27] MEDS: ENOXAPARIN 40 MG/0.4 ML (LOVENOX) SYR SC SCH (12:59)
[2021-07-28] MEDS: CEFEPIME INJECTION 1,000 MG in NS (IVPB) 50 ML IV SCH ×3 (00:32→17:08)
[2021-07-28] MEDS: LACTATED RINGERS 1,000 ML IV SCH ×2 (00:32→17:08)
[2021-07-28 06:27] LABS: POTASSIUM 4.5 MMOL/L (3.6-5.0)
[2021-07-28 06:28] LABS: CALCIUM 9.3 MG/DL (8.5-10.1)
[2021-07-28 06:33] LABS: CREATININE SERUM 1.04 MG/DL (0.60-1.30)
[2021-07-28] MEDS: POTASSIUM CL 10MEQ/50ML IVPB 50 ML IV SCH (06:33)
[2021-07-28] MEDS: KCL 20 MEQ TAB (K-DUR) PO SCH (06:33)
[2021-07-28 06:35] LABS: MAGNESIUM 1.7 MG/DL (1.6-2.4)
[2021-07-28] MEDS: RT-ALBUTEROL/IPRATROPIUM 3 ML (DUONEB) VIAL INH SCH ×4 (06:48→18:14)
[2021-07-28] MEDS: MAGNESIUM 1 GM/100 ML IVPB 100 ML IV SCH ×3 (06:50→09:34)
[2021-07-28] MEDS: AZITHROMYCIN 250 MG TAB (ZITHROMAX) PO SCH (08:49)
[2021-07-28] MEDS ORDERED: CEFD300C3 PO (09:06)
--- NOTE | 2021-07-28 09:09 | Discharge Inst-Skilled Nursing ---
Discharge Inst-Skilled NF Consult/Follow Up/Orders Follow Up Appt.: next residential rounds Skilled NF Admit to: [facility] Certification (SNF) I certify that SNF services are required to be given on an inpatient basis because of the above named patient's need for penitentiary care on a continuing basis for the conditions(s) for which he/she was receiving inpatient hospital services prior to his/her transfer to the SNF. Care Home Facility Order: Nursing Services, Rn Coronary Care Unit-Evaluate & Treat, Physical Therapy-Evaluate & Treat Oxygen Delivery Method: Nasal Cannula Oxygen Flow Rate L/min (Range): 2 Discharge Diet: No Restrictions Daily Activity as Tolerated: Yes Resuscitation Status: Do Not Resuscitate New & Resume Previous Orders Urmila Brown Jul 28, 2021 09:08 URMILA BROWN MD Jul 28, 2021 09:09
[2021-07-28 10:33] VITALS: BP 116/62
[2021-07-28] MEDS ORDERED: RT-ALBUTEROL/IPRATROPIUM 3 ML (DUONEB) VIAL INH PRN (11:00)
[2021-07-28] MEDS: ENOXAPARIN 40 MG/0.4 ML (LOVENOX) SYR SC SCH (12:18)
--- NOTE | 2021-07-28 12:40 | Progress Note - Hospitalist ---
CLARITA YAÑEZ 07/28/21 1239: Subjective HPI/CC On Admission Date Seen by Provider: Jul 28, 2021 Time Seen by Provider: 09:15 Subjective/Events-last exam The patient was comfortably in bed this morning. He did appear slightly anxious. He reports some left leg pain. He stated he was in the [place] "emergency room", and was not able to state the correct year. Reports "a little" shortness of breath. He had no other complaints. Review of Systems Pulmonary: Dyspnea ("a little" ) Cardiovascular: No: Chest Pain, Palpitations Neurological: No: Weakness, Numbness Objective Exam Vital Signs Vital Signs Date Time Temp Pulse Resp B/P (MAP) Pulse Ox O2 Delivery O2 Flow Rate FiO2 07/28/21 12:13 36.6 82 22 101/55 95 High Flow N/C 2.00 07/28/21 10:33 28 Capillary Refill : Less Than 3 Seconds General Appearance: No Apparent Distress HEENT: PERRL/EOMI, Pharynx Normal, Moist Mucous Membranes Respiratory: Chest Non Tender, Lungs Clear, Normal Breath Sounds, No Accessory Muscle Use, No Respiratory Distress Cardiovascular: Regular Rate, Rhythm, No Murmur, Normal Peripheral Pulses Gastrointestinal: Normal Bowel Sounds, No Organomegaly, No Pulsatile Mass, Non Tender, Soft Extremity: No Calf Tenderness, No Pedal Edema Neurologic/Psychiatric: Alert, No Motor/Sensory Deficits, Disoriented (stated he was in the "emergency room" and unable to state the correct year), Other (anxious) Skin: Warm/Dry Results/Procedures Lab Laboratory Tests 07/28/21 05:49 Patient resulted labs reviewed. Imaging: Reviewed Imaging Films, Reviewed Imaging Report Assessment/Plan Assessment and Plan Assess & Plan/Chief Complaint 81 YO male recovering from septic shock dt pneumonia, acute respiratory failure, lactic acidosis. Possible hospital acquired delirium. Hx of of CKD3, advanced age, poor prognosis, COPD, pAFIB Septic shock dt pneumonia acute respiratory failure lactic acidosis Confusion Continue IV Cefepime, PO Azithromycin, and oxygen and IV fluids. Started Duoneb today. The patient will continue on 4th floor today, and will try to DC on Thursday to [place] [facility]. CKD3 COPD pAFIB No acute management. advanced age poor prognosis PT/OT consulted. NIKO BROWN MD 07/28/21 7969: Subjective HPI/CC On Admission Time Seen by Provider: 11:45 Assessment/Plan Assessment and Plan Assess & Plan/Chief Complaint Continue antibiotics. Planning for discharge back to [facility] tomorrow. Diagnosis/Problems Diagnosis/Problems (1) Acute respiratory failure with hypoxia Status: Acute (2) Multifocal pneumonia Status: Acute Supervisory-Addendum Brief Verification & Attestation Participated in pt care: history, MDM, physical Personally performed: exam, history, MDM, supervision of care Care discussed with: Medical Student Procedures: n/a Results interpretation: Verified all documentation A medical student performed and documented this service in my presence. I reviewed and verified all information documented by the medical student and made modifications to such information, when appropriate. I personally performed the physical exam and medical decision making. CLARITA YAÑEZ Jul 28, 2021 12:39 NIKO BROWN MD Jul 28, 2021 17:39
[2021-07-29] MEDS: CEFEPIME INJECTION 1,000 MG in NS (IVPB) 50 ML IV SCH (00:34)
[2021-07-29 06:22] LABS: POTASSIUM 4.6 MMOL/L (3.6-5.0)
[2021-07-29 06:23] LABS: CALCIUM 9.3 MG/DL (8.5-10.1)
[2021-07-29 06:27] LABS: CREATININE SERUM 1.15 MG/DL (0.60-1.30)
[2021-07-29 06:55] LABS: ALBUMIN 2.9 GM/DL (3.2-4.5)
[2021-07-29 07:00] LABS: BILIRUBIN,TOTAL 0.4 MG/DL (0.1-1.0)
[2021-07-29 07:04] LABS: MAGNESIUM 1.9 MG/DL (1.6-2.4)
[2021-07-29] MEDS: LACTATED RINGERS 1,000 ML IV SCH ×2 (07:04→07:32)
[2021-07-29] MEDS: MAGNESIUM 1 GM/100 ML IVPB 100 ML IV SCH (07:05)
[2021-07-29] MEDS: POTASSIUM CL 10MEQ/50ML IVPB 50 ML IV SCH (07:05)
[2021-07-29] MEDS: KCL 20 MEQ TAB (K-DUR) PO SCH (07:05)
[2021-07-29] MEDS: RT-ALBUTEROL/IPRATROPIUM 3 ML (DUONEB) VIAL INH SCH ×2 (07:23→11:17)
[2021-07-29] MEDS ORDERED: CEFDINIR 300 MG (OMNICEF) CAP PO SCH (09:00)
--- NOTE | 2021-07-29 10:55 | Discharge Summary ---
Discharge Summary Hospital Course Was the Problem List Reviewed?: Yes Problems/Dx: (1) Acute respiratory failure with hypoxia Status: Acute (2) Multifocal pneumonia Status: Acute Hospital Course Date of Admission: Jul 24, 2021 at 09:54 Admission Diagnosis : Family Physician/Provider: Mckinley Nichols MD Date of Discharge: 07/29/21 Discharge Diagnosis: Acute respiratory failure, multifocal pneumonia, decline in status Hospital Course: Hospital Course: Pt had an uneventful 6 days hospital course after he was admitted for pneumonia and respiratory failure. He has had a long drawn out last one year after suffering a hip fracture and will go to [facility] today. He has had some decline in status and has had a lot of weight loss. Currently he is doing very well. We will heplock IV fluids and he will be ready to go home to the long-term. Labs and Pending Lab Test: Laboratory Tests 07/29/21 05:50: Sodium Level 136, Potassium Level 4.6, Chloride Level 101, Carbon Dioxide Level 29, Anion Gap 6, Blood Urea Nitrogen 18, Creatinine 1.15, Estimat Glomerular Filtration Rate 61, BUN/Creatinine Ratio 16, Glucose Level 98, Calcium Level 9.3, Corrected Calcium 10.2H, Magnesium Level 1.9, Total Bilirubin 0.4, Aspartate Amino Transf (AST/SGOT) 14, Alanine Aminotransferase (ALT/SGPT) 10, Alkaline Phosphatase 76, Total Protein 6.0L, Albumin 2.9L Microbiology 07/24/21 Urine Culture - Final, Complete NO GROWTH 07/24/21 Blood Culture - Preliminary, Resulted No growth Home Meds Active Cefdinir 300 Mg Capsule 300 Mg PO BID 5 Days Reported Albuterol Sulfate 2.5 Mg/0.5 Ml Vial.neb 2.5 Mg INH Q6H PRN Ceftriaxone (Ceftriaxone Sodium) 1 Gm Vial 1 Gm IM DAILY GIVE FOR 7 DAYS, STARTING 07-23-2021 AND LAST DOSE 07-29-2021 Mucinex (Guaifenesin) 600 Mg Tab.er.12h 600 Mg PO BID Dulera 100 Mcg/5 Mcg Inhaler (Mometasone/Formoterol) 13 Gm Hfa.aer.ad 2 Puff INH BID Melatonin 3 Mg Tablet 6 Mg PO HS TAKES 2 (3MG) TABS Neurontin (Gabapentin) 300 Mg Capsule 300 Mg PO DAILY Lexapro (Escitalopram Oxalate) 10 Mg Tablet 10 Mg PO 1800 Vitamin B-12 (Cyanocobalamin (Vitamin B-12)) 1,000 Mcg Tablet 1,000 Mcg PO DAILY Cod Liver Oil Softgel (Vit A & D3 in Cod Liver Oil) 1 Each Capsule 2 Each PO DAILY Tramadol HCl 50 Mg Tablet 50-100 Mg PO Q6H PRN Hydrocodone-Acetamin 5-325 mg (Hydrocodone/Acetaminophen) 1 Each Tablet 1-2 Ea PO Q4H PRN Bisacodyl 10 Mg Supp.rect 10 Mg RC DAILY PRN Senna (Sennosides) 8.6 Mg Tablet 8.6 Mg PO DAILY PRN Tylenol Extra Strength (Acetaminophen) 500 Mg Tablet 1,000 Mg PO Q8H PRN Miralax (Polyethylene Glycol 3350) 17 Gm Powd.pack 17 Gm PO DAILY PRN Docusate Sodium 100 Mg Capsule 100 Mg PO DAILY Aspirin EC (Aspirin) 81 Mg Tablet.dr 81 Mg PO BID Pantoprazole Sodium 40 Mg Tablet.dr 40 Mg PO DAILY Amiodarone HCl 200 Mg Tablet 200 Mg PO DAILY Vitamin D3 (Cholecalciferol (Vitamin D3)) 125 Mcg Tablet 125 Mcg PO DAILY Assessment/Pt Instructions PCP on long-term rounds Discharge Planning: <30 minutes discharge planning Discharge Instructions Discharge Diet: No Restrictions Activity as Tolerated: Yes Discharge Physical Examination Vital Signs Vital Signs Date Time Temp Pulse Resp B/P (MAP) Pulse Ox O2 Delivery O2 Flow Rate FiO2 07/29/21 08:10 37.0 72 20 20/90 90 High Flow N/C 2.00 07/28/21 10:33 28 General Appearance: No Apparent Distress, WD/WN, Chronically ill, Thin Respiratory: Lungs Clear Cardiovascular: Regular Rate, Rhythm Neurologic/Psychiatric: Alert, Oriented x3, No Motor/Sensory Deficits, Normal Mood/Affect Allergies: Coded Allergies: No Known Drug Allergies (Unverified , 01/23/12) Discharge Summary Date of Admission Jul 24, 2021 at 09:54 Date of Discharge Discharge Date: Jul 29, 2021 Admission Diagnosis Septic shock due to multifocal pneumonia Discharge Diagnosis (1) Acute respiratory failure with hypoxia Status: Acute (2) Multifocal pneumonia Status: Acute APRYL KAMINSKI DO Jul 29, 2021 10:55
--- NOTE | 2021-07-29 12:02 | Progress Note ---
VIOLETA CEJA MED STUDENT 07/29/21 1202: Progress Note Mr Pham is an 81 yo male with a history of COPD, CKD, AFIB, and neurogenic bladder that came into the ER on 07/24 for for respiratory distress. He was having increased work of breathing and had an O2 saturation in the 80s. He had undergone a urologic procedure earlier in the week on 07/22. He was found to have suspected PNA and was admitted on abx, he was later confirmed to have sepsis. He also was treated for UTI, and he had a suprapubic catheter. He had a pretty uneventful hospital course. He remained in the hospital until his discharge to [facility] on 07/29. He continued to improve day to day and did not have any major complications. His hospital stay lasted 6 days. Supervisory-Addendum Brief Verification & Attestation Participated in pt care: history, physical Personally performed: exam, history Care discussed with: Medical Student Procedures: n/a n/a POORNIMA KAMINSKI DO 07/30/21 0532: Supervisory-Addendum Brief Verification & Attestation Participated in pt care: history, MDM, physical Personally performed: exam, history, MDM, supervision of care Care discussed with: Medical Student Procedures: n/a Results interpretation: Verified all documentation Verification and Attestation of Medical Student E/M Service A medical student performed and documented this service in my presence. I reviewed and verified all information documented by the medical student and made modifications to such information, when appropriate. I personally performed the physical exam and medical decision making. Poornima Kaminski, Jul 30, 2021,05:32 VIOLETA CEJA MED STUDENT Jul 29, 2021 12:02 POORNIMA KAMINSKI DO Jul 30, 2021 05:32
[2021-07-29] MEDS: ENOXAPARIN 40 MG/0.4 ML (LOVENOX) SYR SC SCH (12:24)
== END 2021-07-29 13:38 | DRG 871 ==
LOC: EDUNIT# 07:55 → ER 07:56 → ICU 09:54 → 4TH 07-26 18:45
PROVIDERS: ADMIT Internal Medicine; ATTEND Internal Medicine
PROC: 5A09357 Assistance with Respiratory Ventilation, Less than 24 Consecutive Hours, Continuous Positive Airway Pressure (ICD-10-PCS; principal; 2021-07-24)
PROC: 5A0945A Assistance with Respiratory Ventilation, 24-96 Consecutive Hours, High Flow/Velocity Cannula (ICD-10-PCS; 2021-07-25)
DX: A41.9 Sepsis, unspecified organism (principal); R65.21 Severe sepsis with septic shock; J96.01 Acute respiratory failure with hypoxia; J18.9 Pneumonia, unspecified organism; E87.2 Acidosis; T83.510A Infection and inflammatory reaction due to cystostomy catheter, initial encounter; N39.0 Urinary tract infection, site not specified; Z66 Do not resuscitate; Z20.822 Contact with and (suspected) exposure to COVID-19; J44.9 Chronic obstructive pulmonary disease, unspecified; N18.30 Chronic kidney disease, stage 3 unspecified; N31.9 Neuromuscular dysfunction of bladder, unspecified; I48.0 Paroxysmal atrial fibrillation; D64.9 Anemia, unspecified
CPT/HCPCS: 36415; 71045; 71275; 80048; 80053; 81000; 83605; 83735; 84100; 84145; 85007; 85025; 85027; 85379; 85610; 85730; 87040; 87088; 87636; 93005; 94640; 94760; 96361; 96365; 96375

== ENCOUNTER 2021-11-27 07:30 | Day surgery (SDC) | payer MEDICARE ==
[~2021-11-27] VITALS: Ht 188 cm; Wt 80.6 kg
[~2021-11-27 07:30] MED LIST changes: -ALBU2.5V4 INH; -CATHETER FLUSH 10 ML SYR IVP PRN; -REGADENOSON 0.4 MG/5 ML SYR (LEXISCAN) IV ONE; -SODI30SP2 NS
[2021-11-27] MEDS ORDERED: LIDOCAINE 1% INJ 50 ML (XYLOCAINE) VIAL ONE (07:41)
[2021-11-27 10:27] VITALS: BP 139/64
--- NOTE | 2021-11-27 12:05 | Implantation of Loop Monitor ---
Implant of Loop Monitior IMPLANTATION OF LOOP MONITOR REPORT DATE OF PROCEDURE: 11/27/21 PREOP DIAGNOSIS: Paroxysmal atrial fibrillation POSTOP DIAGNOSIS: Paroxysmal atrial fibrillation PROCEDURE DETAILS: The patient is a 81 male with history of paroxysmal atrial fibrillation requiring long-term surveillance. Therefore implantable loop recorder was discussed and agreed with the patient. Informed consent was taken. All risks and complications were discussed at length. The patient was draped and prepped in the usual sterile fashion. Local anesthesia was lidocaine, which was given in the substernal area close to the 4th intercostal space. Loop monitor [employer] with serial number [id number] was implanted according to the protocol. Steri- Strips were placed at the end of the procedure. There were no complications and the patient tolerated the procedure well. The device was interrogated with a voltage of. ANESTHESIA: Local anesthesia with lidocaine. COMPLICATIONS: None CONTRAST/FLUOROSCOPY: None CONCLUSION: Successful implantation of loop monitor with no complication FINAL DIAGNOSIS: Paroxysmal atrial fibrillation Palpitation JENNIFER RIVER MD Nov 27, 2021 12:05
== END 2021-11-27 11:53 | disposition home or self-care (01) ==
LOC: CATH 07:30
PROVIDERS: ATTEND Internal Medicine Cardiovascular Disease
DX: I48.0 Paroxysmal atrial fibrillation (principal); I95.89 Other hypotension; I45.10 Unspecified right bundle-branch block; I44.4 Left anterior fascicular block; J44.9 Chronic obstructive pulmonary disease, unspecified; Z87.891 Personal history of nicotine dependence
CPT/HCPCS: 33285; C1764

== ENCOUNTER → 2021-11-27 | Outpatient (CLI) | payer MEDICARE ==
[~2021-11-27] VITALS: Ht 187 cm; Wt 77.0 kg
[~2021-11-27] MED LIST changes: +ALB0.5V INH; +ALBU2.5V4 INH; +BISA10SU8 RC; +CATHETER FLUSH 10 ML SYR IVP PRN; +CFTR1V IM; +CYAN-41 PO; +ESCI10TA PO; +GABA300C PO; +MELA3TAB39 PO; +MOME13HF2 INH; +REGADENOSON 0.4 MG/5 ML SYR (LEXISCAN) IV ONE; +SENN-234 PO; +SODI30SP2 NS; +TRM50T PO; +VIT1CAPS46 PO
[2021-11-27 09:20] VITALS: BP 137/106
--- NOTE | 2021-11-27 14:03 | Cardiology Stress Test Report ---
Stress Test Report Date of Procedure/Referring: Date of Procedure: Nov 27, 2021 Keke Dumont Admitting Physician Mckinley Nichols MD Indications: a fib Baseline Heart Rate: 74 Baseline Blood Pressure: Blood Pressure Systolic: 137 Blood Pressure Diastolic: 106 Baseline Vitals Vital Signs Date Time Temp Pulse Resp B/P (MAP) Pulse Ox O2 Delivery O2 Flow Rate FiO2 11/27/21 09:20 74 137/106 (116) 92 Nasal Cannula 2.00 Baseline EKG: Baseline EKG: NSR Summary After explaining the procedure to the patient, he signed a consent and then brought to the stress nuclear laboratory. Patient received 0.4 mg Lexiscan for stress test, ECG, heart rate and blood pressure were monitored continuously. Resting and stress dose of radio tracer were injected, imaging was acquired and reviewed in short axis, horizontal long axis and vertical long axis views. TID: 1.1 SSS: 2 SDS: 0 EF: 65 1. Patient tolerated Lexiscan well 2. No significant ischemia or infarction on SPECT images 3. Normal left ventricular size, EF 65% JENNIFER RIVER MD Nov 27, 2021 14:03
== END ==
LOC: CARD 07:45
PROVIDERS: ATTEND Physician Assistant
DX: I48.91 Unspecified atrial fibrillation (principal)
CPT/HCPCS: 78452; 93017; A9502

== ENCOUNTER 2021-11-28 17:11 | Inpatient (IN) | payer MEDICARE ==
[~2021-11-28] VITALS: Ht 188 cm; Wt 90.0 kg
[2021-11-28 17:25] LABS: BASOPHILS % (AUTO) 0 % (0-10); EOSINOPHILS # (AUTO) 0.1 10^3/uL (0.0-0.3); EOSINOPHILS % (AUTO) 0 % (0-10); HEMATOCRIT 37 % (40-54); HEMOGLOBIN 11.6 g/dL (13.3-17.7); LYMPHOCYTES % (AUTO) 5 % (12-44); MEAN CORPUSCULAR HEMOGLOBIN 31 pg (25-34); MEAN CORPUSCULAR HGB CONC 32 g/dL (32-36); MEAN CORPUSCULAR VOLUME 99 fL (80-99); MEAN PLATELET VOLUME 9.9 fL (9.0-12.2); MONOCYTES # (AUTO) 2.5 10^3/uL (0.0-1.0); MONOCYTES % (AUTO) 14 % (0-12); NEUTROPHILS # (AUTO) 14.1 10^3/uL (1.8-7.8); NEUTROPHILS % (AUTO) 79 % (42-75); PLATELET COUNT 234 10^3/uL (130-400); WHITE BLOOD COUNT 17.8 10^3/uL (4.3-11.0)
--- NOTE | 2021-11-28 17:26 | ED Dyspnea ---
General Stated Complaint: SOB Source of Information: Patient Exam Limitations: No Limitations (CARMEN MONK) History of Present Illness Date Seen by Provider: Nov 28, 2021 Time Seen by Provider: 17:21 Initial Comments Patient is a 81-year-old male with a history of COPD, dementia, chronic A. fib, GERD, respiratory failure who presents to ED for shortness of breath and not feeling well. Patient states he woke up feeling short of breath which progressed to got worse throughout the day. Patient has been using an inhaler without much improvement. EMS was contacted secondary to patient having a elevated heart rate and feeling short of breath. Patient oxygen level 89% on 2 L on arrival. Was placed on 4 L and given a DuoNeb breathing treatment with improvement of his oxygen level. Patient febrile on arrival. Reports a chronic cough but denies worsening cough today. Patient does have a suprapubic catheter. History of neuromuscular dysfunction of bladder. Patient on arrival denies of any chest pain abdominal pain vomiting or diarrhea. States he does feel a little weak today. Had a loop recorder placed by Dr. Roque yesterday. Patient was in A. fib and tachycardic on arrival with a fever. Initiated sepsis protocol. Denies headache, dizziness, focal neural deficits, neck pain. Patient is currently on a blood thinner (CARMEN MONK) Allergies and Home Medications Allergies Coded Allergies: No Known Drug Allergies (Unverified , 01/23/12) Patient Home Medication List Home Medication List Reviewed: Yes (CARMEN MONK) Acetaminophen (Tylenol Extra Strength) 500 Mg Tablet, 1,000 MG PO Q8H PRN for PAIN-MILD (1-4), (Reported) Entered as Reported by: SANTO HARRIS on 06/04/21 1036 Last Action: Reviewed Albuterol Sulfate (Albuterol Sulfate) 2.5 Mg/3 Ml Vial.neb, 2.5 MG INH Q6H PRN for SHORTNESS OF BREATH, (Reported) Entered as Reported by: JEFF TONY on 11/29/21 0230 Last Action: Reviewed Aspirin (Aspirin EC) 81 Mg Tablet.dr, 81 MG PO BID, (Reported) Entered as Reported by: SANTO HARRIS on 06/04/21 1036 Last Action: Reviewed Bisacodyl (Bisacodyl) 10 Mg Supp.rect, 10 MG RC DAILY PRN for CONSTIPATION-4TH LINE, (Reported) Entered as Reported by: SANTO HARRIS on 07/24/211354 Last Action: Reviewed Cholecalciferol (Vitamin D3) (Vitamin D3) 125 Mcg Tablet, 5,000 UNITS PO DAILY, (Reported) Entered as Reported by: MI BONDS on 02/04/21 0800 Last Action: Reviewed Cyanocobalamin (Vitamin B-12) (Vitamin B-12) 1,000 Mcg Tablet, 1,000 MCG PO DAILY, (Reported) Entered as Reported by: SANTO HARRIS on 07/24/211354 Last Action: Reviewed Docusate Sodium (Docusate Sodium) 100 Mg Capsule, 100 MG PO DAILY, (Reported) Entered as Reported by: SANTO HARRIS on 06/04/21 1036 Last Action: Reviewed Escitalopram Oxalate (Lexapro) 10 Mg Tablet, 10 MG PO 1800, (Reported) Entered as Reported by: SANTO HARRIS on 07/24/211354 Last Action: Reviewed Gabapentin (Neurontin) 300 Mg Capsule, 300 MG PO DAILY, (Reported) Entered as Reported by: SANTO HARRIS on 07/24/211354 Last Action: Reviewed Guaifenesin (Mucinex) 600 Mg Tab.er.12h, 600 MG PO BID, (Reported) Entered as Reported by: SANTO HARRIS on 07/24/211354 Last Action: Reviewed Hydrocodone/Acetaminophen (Hydrocodone-Acetamin 5-325 mg) 1 Each Tablet, 1-2 EA PO Q4H PRN for PAIN-MODERATE (5-7), (Reported) Entered as Reported by: SANTO HARRIS on 07/24/211354 Last Action: Reviewed Melatonin (Melatonin) 3 Mg Tablet, 6 MG PO HS, (Reported) Entered as Reported by: SANTO HARRIS on 07/24/211354 Last Action: Reviewed Mometasone/Formoterol (Dulera 100 Mcg/5 Mcg Inhaler) 13 Gm Hfa.aer.ad, 2 PUFF INH BID, (Reported) Entered as Reported by: SANTO HARRIS on 07/24/211354 Last Action: Reviewed Pantoprazole Sodium (Pantoprazole Sodium) 40 Mg Tablet.dr, 40 MG PO DAILY, (Reported) Entered as Reported by: SANTO HARRIS on 06/04/21 1036 Last Action: Reviewed Polyethylene Glycol 3350 (Miralax) 17 Gm Powd.pack, 17 GM PO DAILY PRN for CONSTIPATION-2ND LINE, (Reported) Entered as Reported by: SANTO HARRIS on 06/04/21 103 Last Action: Reviewed Sennosides (Senna) 8.6 Mg Tablet, 8.6 MG PO DAILY PRN for CONSTIPATION-5TH LINE, (Reported) Entered as Reported by: SANTO HARRIS on 07/24/211354 Last Action: Reviewed Sodium Chloride (Saline Nasal [place]) 30 Ml [place], 2 SPRAYS NS Q1HR PRN for CONGESTION, (Reported) Entered as Reported by: JEFF TONY on 11/29/21 0316 Last Action: Reviewed Tramadol HCl (Tramadol HCl) 50 Mg Tablet, 50-100 MG PO Q6H PRN for PAIN-MODERATE (5-7), (Reported) Entered as Reported by: SANTO HARRIS on 07/24/211354 Last Action: Reviewed Vit A & D3 in Cod Liver Oil (Cod Liver Oil Softgel) 1 Each Capsule, 2 EACH PO DAILY, (Reported) Entered as Reported by: SANTO HARRIS on 07/24/211354 Last Action: Reviewed Discontinued Medications Albuterol Sulfate (Albuterol Sulfate) 2.5 Mg/0.5 Ml Vial.neb, 2.5 MG INH Q6H PRN for SHORTNESS OF BREATH, (Reported) Discontinued Reason: No Longer Taking Entered as Reported by: SANTO HARRIS on 07/24/21 135 Last Action: Discontinued Amiodarone HCl (Amiodarone HCl) 200 Mg Tablet, 200 MG PO DAILY, (Reported) Discontinued Reason: No Longer Taking Entered as Reported by: SANTO HARRIS on 06/04/21 103 Last Action: Discontinued Cefdinir (Cefdinir) 300 Mg Capsule, 300 MG PO BID Discontinued Reason: No Longer Taking Prescribed by: NIKO BROWN on 07/28/21 0906 Last Action: Discontinued Review of Systems Review of Systems Constitutional: No chills, No diaphoresis; malaise, weakness EENTM: No blurred vision, No double vision Respiratory: cough, short of breath Cardiovascular: No chest pain, No edema Gastrointestinal: No abdominal pain, No diarrhea, No nausea, No vomiting Genitourinary: No decreased output, No discharge Musculoskeletal: No back pain, No joint pain Skin: No change in color (CARMEN MONK) All Other Systems Reviewed Negative Unless Noted: Yes (CARMEN MONK) Past Iacnqqd-Hjnghe-Xhwkcg Hx Immunizations Up To Date First/Initial COVID19 Vaccinat: SEP 2020 Second COVID19 Vaccination Rufino: OCTOBER 2020 Third COVID19 Vaccination Date: 09/2020 (CARMEN MONK) Past Medical History Surgery/Hospitalization HX: EYE SURGERY, HERNIA REPAIR, left hip Surgeries: Yes (hernia) Orthopedic Respiratory: Yes COPD Currently Using CPAP: No Currently Using BIPAP: No Cardiac: No Atrial Fibrillation, Hypertension Neurological: No Reproductive Disorders: No Genitourinary: No Renal Failure Gastrointestinal: No Musculoskeletal: No Endocrine: No HEENT: No Cancer: No Psychosocial: No Integumentary: No Blood Disorders: No (CARMEN MONK) Family Medical History No Pertinent Family Hx (CARMEN MONK) Physical Exam Vital Signs Vital Signs - First Documented 11/28/21 17:11 Temp 39.1 Pulse 108 Resp 20 B/P (MAP) 132/87 (102) Pulse Ox 94 O2 Delivery Nasal Cannula O2 Flow Rate 2.00 (WON GRIDER MD) Vital Signs Capillary Refill : (CARMEN MONK) Height, Weight, BMI Height: 6'2.00" Weight: 186lbs. oz. 81.639259un; 22.01 BMI Method: General Appearance: No Apparent Distress, WD/WN HEENT: PERRL/EOMI, TMs Normal, Normal ENT Inspection, Pharynx Normal Neck: Full Range of Motion, Normal Inspection, Non Tender, Supple Respiratory: No Accessory Muscle Use, No Respiratory Distress, Crackles Cardiovascular: No JVD, No Murmur, Irregularly Irregular Gastrointestinal: Normal Bowel Sounds, No Organomegaly, No Pulsatile Mass, Non Tender Extremity: Normal Capillary Refill, Normal Inspection, Normal Range of Motion, Non Tender Neurologic/Psychiatric: Alert, Oriented x3, No Motor/Sensory Deficits, Normal Mood/Affect Skin: Normal Color, Warm/Dry (CARMEN MONK) Focused Exam Lactate Level 11/28/21 17:10: Lactic Acid Level 1.88 (WON GRIDER MD) Lactic Acid Level Laboratory Tests Test 11/28/21 17:10 Lactic Acid Level 1.88 MMOL/L (0.50-2.00) (WON GRIDER MD) Progress/Results/Core Measures Results/Orders Lab Results Laboratory Tests Test 11/28/21 17:10 11/28/21 17:33 11/28/21 17:41 Range/Units White Blood Count 17.8 H 4.3-11.0 10^3/uL Red Blood Count 3.71 L 4.30-5.52 10^6/uL Hemoglobin 11.6 L 13.3-17.7 g/dL Hematocrit 37 L 40-54 % Mean Corpuscular Volume 99 80-99 fL Mean Corpuscular Hemoglobin 31 25-34 pg Mean Corpuscular Hemoglobin Concent 32 32-36 g/dL Red Cell Distribution Width 13.2 10.0-14.5 % Platelet Count 234 130-400 10^3/uL Mean Platelet Volume 9.9 9.0-12.2 fL Immature Granulocyte % (Auto) 1 % Neutrophils (%) (Auto) 79 H 42-75 % Lymphocytes (%) (Auto) 5 L 12-44 % Monocytes (%) (Auto) 14 H 0-12 % Eosinophils (%) (Auto) 0 0-10 % Basophils (%) (Auto) 0 0-10 % Neutrophils # (Auto) 14.1 H 1.8-7.8 10^3/uL Lymphocytes # (Auto) 1.0 1.0-4.0 10^3/uL Monocytes # (Auto) 2.5 H 0.0-1.0 10^3/uL Eosinophils # (Auto) 0.1 0.0-0.3 10^3/uL Basophils # (Auto) 0.0 0.0-0.1 10^3/uL Immature Granulocyte # (Auto) 0.1 0.0-0.1 10^3/uL Neutrophils % (Manual) 85 % Lymphocytes % (Manual) 1 % Monocytes % (Manual) 13 % Eosinophils % (Manual) 1 % Blood Morphology Comment NORMAL Prothrombin Time 14.9 H 12.2-14.7 SEC INR Comment 1.1 0.8-1.4 Activated Partial Thromboplast Time 34 24-35 SEC Sodium Level 137 135-145 MMOL/L Potassium Level 4.2 3.6-5.0 MMOL/L Chloride Level 98 98-107 MMOL/L Carbon Dioxide Level 26 21-32 MMOL/L Anion Gap 13 5-14 MMOL/L Blood Urea Nitrogen 32 H 7-18 MG/DL Creatinine 1.65 H 0.60-1.30 MG/DL Estimat Glomerular Filtration Rate 41 BUN/Creatinine Ratio 19 Glucose Level 131 H 70-105 MG/DL Lactic Acid Level 1.88 0.50-2.00 MMOL/L Calcium Level 9.6 8.5-10.1 MG/DL Corrected Calcium 9.8 8.5-10.1 MG/DL Total Bilirubin 0.4 0.1-1.0 MG/DL Aspartate Amino Transf (AST/SGOT) 17 5-34 U/L Alanine Aminotransferase (ALT/SGPT) 18 0-55 U/L Alkaline Phosphatase 93 40-136 U/L Troponin I < 0.028 <0.028 NG/ML C-Reactive Protein High Sensitivity 28.37 H 0.00-0.50 MG/DL B-Type Natriuretic Peptide 110.9 H <100.0 PG/ML Total Protein 7.6 6.4-8.2 GM/DL Albumin 3.7 3.2-4.5 GM/DL Procalcitonin 0.32 H <0.10 NG/ML Urine Color YELLOW Urine Clarity CLEAR Urine pH 5.0 5-9 Urine Specific [place] 1.025 H 1.016-1.022 Urine Protein 1+ H NEGATIVE Urine Glucose (UA) NEGATIVE NEGATIVE Urine Ketones NEGATIVE NEGATIVE Urine Nitrite POSITIVE H NEGATIVE Urine Bilirubin NEGATIVE NEGATIVE Urine Urobilinogen 0.2 < = 1.0 MG/DL Urine Leukocyte Esterase 1+ H NEGATIVE Urine RBC (Auto) TRACE-I H NEGATIVE Urine RBC NONE /HPF Urine WBC 5-10 H /HPF Urine Squamous Epithelial Cells 0-2 /HPF Urine Renal Epithelial Cells 0-2 /HPF Urine Crystals NONE /LPF Urine Bacteria MODERATE H /HPF Urine Casts NONE /LPF Urine Mucus NEGATIVE /LPF Urine Culture Indicated CULTURE PENDING Influenza Type A (RT-PCR) Not Detected Not Detecte Influenza Type B (RT-PCR) Not Detected Not Detecte SARS-CoV-2 RNA (RT-PCR) Not Detected Not Detecte (WON GRIDER MD) Vital Signs/I&O 11/28/21 11/28/21 11/28/21 17:11 17:11 17:11 Temp 39.1 Pulse 108 Resp 20 B/P (MAP) 132/87 (102) Pulse Ox 94 94 O2 Delivery Nasal Cannula Nasal Cannula Nasal Cannula O2 Flow Rate 2.00 2.00 2.00 11/29/21 00:00 Intake Total 1050 ml Balance 1050 ml (WON GRIDER MD) Departure Communication (PCP) Patient presents ED with acute respiratory failure. Requiring 4 L oxygen and typically wears 2 L at [facility]. Patient with intermittent fever over the past 2 days with worsening cough. Patient on arrival A. fib with RVR. Was given Cardizem here in the ED with some improvement. Did discuss patient with Dr. Pollard and considered Diltizem 30 mg instead of starting on a Cardizem drip. Patient converted right before admission. Patient was febrile was given Tylenol. Blood cultures pending. Normal lactic acid. Was given IV Solu- Medrol. DuoNeb breathing treatment in route improved his oxygen level to 94 to 97%. Elevated white blood count of 17. Acute on chronic kidney failure. Was given a liter of fluid. Patient refused ABG. Patient started on cefepime, Levaquin and vancomycin concerning for healthcare acquired pneumonia. His chest x-ray did not show any infiltrate. Patient could be developing a pneumonia on top of his COPD. Urinalysis concerning for UTI. Does have a suprapubic catheter. Patient was discussed with Dr. Jean and admitted inpatient for further evaluation. Patient oxygen was changed from 4 L to 3 L on nasal cannula. (CARMEN MONK) Impression Primary Impression: Acute respiratory failure with hypoxia Additional Impressions: COPD (chronic obstructive pulmonary disease) Atrial fibrillation with RVR Acute on chronic kidney failure Leukocytosis UTI (urinary tract infection) Disposition: ADMITTED INPATIENT Condition: Stable Admissions Decision to Admit Reason: Admit from ER (General) Decision to Admit/Date: Nov 28, 2021 Time/Decision to Admit Time: 19:49 (CARMEN MONK) Departure-Patient Inst. Referrals: ERIK JOHN MD (PCP/Family) Primary Care Physician ATTENDING PHYSICIAN NOTE: I was physically present as attending physician in the emergency department during the care of this patient, but I was not directly involved in the decision making or delivery of care for this patient. (WON GRIDER MD) CARMEN MONK Nov 28, 2021 17:26 WON GRIDER MD Nov 29, 2021 10:51
[2021-11-28] MEDS ORDERED: methylPREDNISolone 125 MG (Solu-MEDROL) VIAL IVP ONE (17:30)
[2021-11-28] MEDS ORDERED: NS IV 1000 ML 1,000 ML IV SCH (17:30)
[2021-11-28] MEDS ORDERED: CEFEPIME INJECTION 1,000 MG in NS (IVPB) 50 ML IV ONE (17:30)
[2021-11-28] MEDS ORDERED: ACETAMINOPHEN 500 MG TAB (TYLENOL) PO PRN (17:30)
[2021-11-28 17:34] LABS: ALBUMIN 3.7 GM/DL (3.2-4.5); CHLORIDE 98 MMOL/L (98-107); INR 1.1 (0.8-1.4); POTASSIUM 4.2 MMOL/L (3.6-5.0); PROTHROMBIN TIME PATIENT 14.9 SEC (12.2-14.7); SODIUM 137 MMOL/L (135-145)
[2021-11-28 17:35] LABS: CALCIUM 9.6 MG/DL (8.5-10.1)
[2021-11-28 17:36] LABS: GLUCOSE 131 MG/DL (70-105); TOTAL PROTEIN 7.6 GM/DL (6.4-8.2)
[2021-11-28 17:37] LABS: CARBON DIOXIDE 26 MMOL/L (21-32)
[2021-11-28 17:38] LABS: BILIRUBIN,TOTAL 0.4 MG/DL (0.1-1.0)
[2021-11-28 17:39] LABS: BILIRUBIN,URINE NEGATIVE (NEGATIVE); CLARITY,URINE CLEAR; COLOR,URINE YELLOW; GLUCOSE, URINE (UA) NEGATIVE (NEGATIVE); KETONES,URINE NEGATIVE (NEGATIVE); LEUKOCYTE ESTERASE ,URINE 1+ (NEGATIVE); NITRITE,URINE POSITIVE (NEGATIVE); PROTEIN,URINE 1+ (NEGATIVE)
[2021-11-28 17:40] LABS: ALKALINE PHOSPHATASE 93 U/L (40-136); CREATININE SERUM 1.65 MG/DL (0.60-1.30); GFR ESTIMATED 41
[2021-11-28 17:41] LABS: BUN/CREATININE RATIO 19
[2021-11-28 17:43] LABS: ALANINE AMINOTRANSFERASE 18 U/L (0-55)
[2021-11-28 17:44] LABS: EOSINOPHILS % (MANUAL) 1 %; LYMPHOCYTES % (MANUAL) 1 %; MONOCYTES % (MANUAL) 13 %; NEUTROPHILS % (MANUAL) 85 %
[2021-11-28 17:45] LABS: RBC MORPH NORMAL
[2021-11-28 17:49] LABS: BACTERIA,URINE MODERATE /HPF; RENAL EPITHELIAL CELLS,URINE 0-2 /HPF; SQUAMOUS EPITHELIAL CELL,UR 0-2 /HPF
[2021-11-28] MEDS ORDERED: VANCOMYCIN INJECTION 1,000 MG in NS (IVPB) 250 ML IV ONE (18:45)
--- NOTE | 2021-11-28 19:25 | Diagnostic Imaging Report ---
INDICATION: Weakness. COMPARISON: 07/24/2021. EXAMINATION: Single view of the chest. FINDINGS: Cardiac enlargement with central vascular congestion. There is dependent atelectasis. There is no pneumothorax or effusion. Loop recorder device is seen on the left. IMPRESSION: Cardiac enlargement with central vascular congestion and dependent atelectasis. Dictated by: Dictated on workstation # [id number]
[2021-11-28 20:43] VITALS: BP 121/70
[2021-11-28] MEDS ORDERED: LACTULOSE SYRUP 10GM/15ML (ENULOSE) 30ML UDC PO PRN (21:15)
[2021-11-28] MEDS ORDERED: ONDANSETRON 4 MG/2 ML (SDV) Z0FRAN IV PRN (21:15)
[2021-11-28] MEDS ORDERED: ACETAMINOPHEN 325 MG TABLET PO PRN (21:15)
[2021-11-28] MEDS ORDERED: VANCOMYCIN INJECTION 0.1 MG in NS (IVPB) 250 ML IV SCH (21:15)
[2021-11-28] MEDS ORDERED: BISACODYL 10 MG SUPP (DULCOLAX) PR PRN (21:15)
[2021-11-28] MEDS ORDERED: diphenhydrAMINE 50 MG/ML INJ (BENADRYL) IVP PRN (21:15)
[2021-11-28] MEDS ORDERED: polyethylene glycoL POWDER 17 GM (MIRALAX) PACK PO PRN (21:15)
[2021-11-28] MEDS ORDERED: morphine INJ 4 MG/ML 1 ML (VIAL/SYRINGE) IV PRN (21:15)
[2021-11-28] MEDS ORDERED: ONDANSETRON 4 MG (ZOFRAN) ORAL DISSOLVE TAB PO PRN (21:15)
[2021-11-28] MEDS ORDERED: HYDROcodone/APAP 5 MG/325 MG (LORTAB) TAB PO PRN (21:15)
[2021-11-28] MEDS ORDERED: diphenhydrAMINE 25 MG TAB (BENADRYL) PO PRN (21:15)
[2021-11-28] MEDS ORDERED: MILK OF MAGNESIA 400 MG/5 ML 30 ML UDC PO PRN (21:15)
[2021-11-28] MEDS ORDERED: ANTACID SUSP 30 ML UDC (MYLANTA) PO PRN (21:15)
[2021-11-28] MEDS ORDERED: ALPRAZolam 0.25 MG (XANAX) TAB PO PRN (21:15)
[2021-11-28] MEDS ORDERED: CALCIUM CARBONATE 500 MG (TUMS) TAB.CHEW PO PRN (21:15)
[2021-11-28] MEDS ORDERED: MELATONIN 3 MG TABLET PO PRN (21:15)
[2021-11-28] MEDS: NS IV 1000 ML 1,000 ML IV SCH (21:57)
[2021-11-28 23:40] VITALS: BP 124/64
[2021-11-28] MEDS ORDERED: VANCOMYCIN 750 MG/NS 250 ML IVPB IV ONE ×2 (23:45)
[2021-11-29] MEDS: CEFEPIME INJECTION 1,000 MG in NS (IVPB) 50 ML IV SCH ×3 (00:11→16:30)
[2021-11-29] MEDS: RT-ALBUTEROL/IPRATROPIUM 3 ML (DUONEB) VIAL INH SCH ×6 (02:28→21:47)
[2021-11-29] MEDS ORDERED: ALBU2.5V4 INH ×2 (02:30)
[2021-11-29] MEDS ORDERED: SODI30SP2 NS ×2 (03:16)
[2021-11-29 03:41] VITALS: BP 107/68
[2021-11-29] MEDS: NS IV 1000 ML 1,000 ML IV SCH ×3 (05:15→14:51)
[2021-11-29 05:32] LABS: BASOPHILS % (AUTO) 0 % (0-10); EOSINOPHILS % (AUTO) 0 % (0-10); HEMATOCRIT 32 % (40-54); HEMOGLOBIN 10.2 g/dL (13.3-17.7); LYMPHOCYTES # (AUTO) 0.5 10^3/uL (1.0-4.0); LYMPHOCYTES % (AUTO) 4 % (12-44); MEAN CORPUSCULAR HEMOGLOBIN 31 pg (25-34); MEAN CORPUSCULAR HGB CONC 32 g/dL (32-36); MEAN CORPUSCULAR VOLUME 98 fL (80-99); MEAN PLATELET VOLUME 9.8 fL (9.0-12.2); MONOCYTES # (AUTO) 0.3 10^3/uL (0.0-1.0); MONOCYTES % (AUTO) 3 % (0-12); NEUTROPHILS # (AUTO) 12.4 10^3/uL (1.8-7.8); NEUTROPHILS % (AUTO) 93 % (42-75); PLATELET COUNT 194 10^3/uL (130-400); WHITE BLOOD COUNT 13.4 10^3/uL (4.3-11.0)
[2021-11-29 05:43] LABS: ALBUMIN 3.3 GM/DL (3.2-4.5); POTASSIUM 4.7 MMOL/L (3.6-5.0)
[2021-11-29 05:45] LABS: CALCIUM 9.1 MG/DL (8.5-10.1)
[2021-11-29 05:46] LABS: TOTAL PROTEIN 6.7 GM/DL (6.4-8.2)
[2021-11-29 05:48] LABS: BILIRUBIN,TOTAL 0.3 MG/DL (0.1-1.0)
[2021-11-29] MEDS: POTASSIUM CL 10MEQ/50ML IVPB 50 ML IV SCH (05:48)
[2021-11-29] MEDS: KCL 20 MEQ TAB (K-DUR) PO SCH (05:48)
[2021-11-29 05:50] LABS: CREATININE SERUM 1.48 MG/DL (0.60-1.30)
[2021-11-29 05:52] LABS: MAGNESIUM 1.8 MG/DL (1.6-2.4)
[2021-11-29] MEDS: MAGNESIUM 1 GM/100 ML IVPB 100 ML IV SCH (06:00)
--- NOTE | 2021-11-29 07:09 | Diagnostic Imaging Report ---
Indication: Pneumonia AP view of chest is obtained. Right costophrenic sulcus is not fully included. There is background air trapping indicating emphysema. Coarse interstitial markings are stable in the lungs. There is no new infiltrate, pneumothorax or definite pleural fluid. IMPRESSION: Prominent interstitial markings have a stable appearance. Dictated by: Dictated on workstation # [id number]
[2021-11-29 08:00] VITALS: BP 147/76
[2021-11-29] MEDS ORDERED: ENOXAPARIN 40 MG/0.4 ML (LOVENOX) SYR SC SCH (09:00)
--- NOTE | 2021-11-29 09:19 | Physical Therapy Evaluation ---
PT Evaluation-General Medical Diagnosis Admission Date Nov 28, 2021 at 19:56 Medical Diagnosis: respiratory failure with hypoxia Onset Date: Nov 28, 2021 Therapy Diagnosis Therapy Diagnosis: generalized weakness/debility Height/Weight Height (Feet): 6 Height (Inches): 2.00 Weight (Pounds): 186 Precautions Precautions/Isolations: Fall Prevention, Standard Precautions, Pressure Ulcer Referral Physician: Natalya Reason for Referral: Evaluation/Treatment Medical History Pertinent Medical History: Atrial Fib, COPD, Dementia, Neuropathy Current History ER secondary to hypoxia Reviewed History: Yes Social History Home: Correction Prior Prior Level of Function SCALE: Activities may be completed with or without assistive devices. 9-Xappitzzmi-vtylihd completes the activity by him/herself with no assistance from a helper. 5-Set-up or Clean-up Assistance-helper sets up or cleans up; patient completes activity. [place] assists only prior to or following the activity. 4-Supervision or Touching Assistance-helper provides verbal cues and/or touching/steadying and/or contact guard assistance as patient completes activity. Assistance may be provided throughout the activity or intermittently. 3-Partial/Moderate Assistance-helper does LESS THAN HALF the effort. [place] lifts, holds or supports trunk or limbs, but provides less than half the effort. 2-Substantial/Maximal Assistance-helper does MORE THAN HALF the effort. [place] lifts or holds trunk or limbs and provides more than half the effort. 9-Qdoodnmqb-oaptsy does ALL the effort. Patient does none of the effort to complete the activity. Or, the assistance of 2 or more helpers is required for the patient to complete the activity. If activity was not attempted, code reason: 7-Patient Refused. 9-Not Applicable-not attempted and the patient did not perform the activity before the current illness, exacerbation or injury. 10-Not Attempted due to Environmental Limitations-(lack of equipment, weather restraints, etc.). 88-Not Attempted due to Medical Conditions or Safety Concerns. Bed Mobility: 4 Transfers (B,C,W/C): 4 Gait: 4 Indoor Mobility (Ambulation): Needed Some Help Prior Devices Use: Walker PT Evaluation-Current Subjective Patient reports he has been in various NH. Objective Patient Orientation: Person, Time, Situation Attachments: Oxygen, Suprapubic Catheter, IV ROM/Strength ROM Lower Extremities bilateral LE WFL Strength Lower Extremities 4-/5 grossly bilateral LE Integumentary/Posture Posture WFL Neuromuscular (Tone, Coordination, Reflexes) grossly intact Sensory Vision: Functional Hearing: Functional Transfers Lying to Sitting/Side of Bed(Q: 3 Sit to Stand (QC): 3 Chair/Uus-qv-Ricol Xfer(QC): 3 Toilet Transfer (QC): 3 Gait Does the Patient Walk?: Yes Mode of Locomotion: Walk Anticipated Mode of Locomotion: Walk Walk 10 feet (QC): 3 Gait Assistive Device: FWW Balance Sitting Static: Normal Sitting Dynamic: Normal Standing Static: Fair Standing Dynamic: Fair Assessment/Needs Patient up to commode due to BM. Patient requires minimal assist for safety with all mobility. PT to address functional strength and mobility to ensure safe return to [place] at maximum LOF. 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 PT Metal Bonding Worker Goals Time Frame: Dec 07, 2021 Roll Left & Right (QC): 4 Sit to Lying (QC): 4 Lying-Sitting on Side/Bed(QC): 4 Sit to Stand (QC): 4 Chair/Tzb-pd-Yrbtd Xfer(QC): 4 Toilet Transfer (QC): 4 Walk 10 feet (QC): 4 Walk 50ft with 2 Turns (QC): 4 Walk 150 ft (QC): 4 PT Plan Problem List Problem List: Activity Tolerance, Functional Strength, Safety, Balance, Gait, Transfer, Bed Mobility Treatment/Plan Treatment Plan: Continue Plan of Care Treatment Plan: Bed Mobility, Education, Functional Activity Molly, Functional Strength, Gait, Safety, Therapeutic Exercise, Transfers Treatment Duration: Dec 07, 2021 Frequency: 6 times per week Estimated Hrs Per Day: .25 hour per day Patient and/or Family Agrees t: Yes Time/GCodes Time In: 749 Time Out: 801 Total Billed Treatment Time: 12 Total Billed Treatment 1 visit EVModC 12 min SHABBIR HOWARD PT Nov 29, 2021 09:19
[2021-11-29] MEDS: SENNOSIDES 8.6 MG (SENOKOT) TAB PO SCH ×2 (09:24→20:44)
[2021-11-29] MEDS: FAMOTIDINE 20 MG (PEPCID) TABLET PO SCH (09:24)
[2021-11-29] MEDS: DOCUSATE SODIUM 100 MG (COLACE) CAP PO SCH ×2 (09:24→20:44)
[2021-11-29] MEDS: APIXABAN 2.5 MG (ELIQUIS) TABLET PO SCH ×2 (09:24→20:44)
[2021-11-29 12:00] VITALS: BP 112/58
--- NOTE | 2021-11-29 12:00 | Occupational Therapy Eval ---
OT Evaluation-General/PLF Medical Diagnosis Admission Date Nov 28, 2021 at 19:56 Medical Diagnosis: respiratory failure with hypoxia Onset Date: Nov 28, 2021 Therapy Diagnosis Therapy Diagnosis: reduced adl status Height/Weight Height (Feet): 6 Height (Inches): 2.00 Weight (Pounds): 186 Precautions Precautions/Isolations: Fall Prevention, Standard Precautions Referral Physician: Natalya Referral Reason: Evaluation/Treatment Medical History Pertinent Medical History: Atrial Fib, COPD, Dementia, Neuropathy Current History Pt presents to hospital with hypoxia. Found to be in A-fib with a fever. Pt reports living in a longterm. Poor historian. Unsure of true level of assist for adls as pt often contradicting himself. He does state that he uses a walker at baseline and will spend majority of his day sitting in a chair. Pt has a suprapubic catheter at baseline. Reviewed History: Yes Social History Home: Half-Way ADL-Prior Level of Function SCALE: Activities may be completed with or without assistive devices. 0-Whtafuxmtf-sxsojnf completes the activity by him/herself with no assistance from a helper. 5-Set-up or Clean-up Assistance-helper sets up or cleans up; patient completes activity. [place] assists only prior to or following the activity. 4-Supervision or Touching Assistance-helper provides verbal cues and/or touching/steadying and/or contact guard assistance as patient completes activity. Assistance may be provided throughout the activity or intermittently. 3-Partial/Moderate Assistance-helper does LESS THAN HALF the effort. [place] lifts, holds or supports trunk or limbs, but provides less than half the effort. 2-Substantial/Maximal Assistance-helper does MORE THAN HALF the effort. [place] lifts or holds trunk or limbs and provides more than half the effort. 0-Umdmbbrhx-tylasa does ALL the effort. Patient does none of the effort to complete the activity. Or, the assistance of 2 or more helpers is required for the patient to complete the activity. If activity was not attempted, code reason: 7-Patient Refused. 9-Not Applicable-not attempted and the patient did not perform the activity before the current illness, exacerbation or injury. 10-Not Attempted due to Environmental Limitations-(lack of equipment, weather restraints, etc.). 88-Not Attempted due to Medical Conditions or Safety Concerns. Self Care: Unknown Functional Cognition: Needed Some Help Drive Self: No OT Current Status Subjective Pt reports discomfort in buttocks from prolonged sitting. Appearance Pt left sitting in recliner, all needs within reach. Mental Status/Objective Patient Orientation: Person, Confused, Situation Attachments: IV, Oxygen, Suprapubic Catheter, Telemetry Current Hand Dominance: Right Upper Extremity ROM Pt perseverating on multiple lines and does not follow cues ADL-Treatment Eating (QC): 5 Oral Hygiene (QC): 5 On/Off Footwear (QC): 2 Toileting Hygiene (QC): 1 (suprapubic cateter) Pt sitting in chair at OT arrival. He reports discomfort in buttocks from prolonged sitting. Education provided on weight shifting for pressure relief. Max a to don/doff bilateral socks after good effort given. L knee swollen. 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 Min a to stand with use of walker. Able to remove single UE support for only a brief moment before returning to walker. Anticipate assist with clothing management will be needed at this time. Education OT Patient Education: Correct positioning, Modified ADL techniques, Progress toward Goal/Update tx plan, Purpose of tx/functional activities, Rehab process, Safety issues, Transfer techniques Teaching Recipient: Patient Teaching Methods: Demonstration, Discussion Response to Teaching: Verbalize Understanding, Return Demonstration, Reinforcement Needed OT Dough Mixing Machine Operator Goals Longterm Goals Time Frame: Dec 07, 2021 Toileting Hygiene (QC): 4 Shower/Bathe Self (QC): 3 Upper Body Dressing (QC): 4 Lower Body Dressing (QC): 3 1=Demonstrate adherence to instructed precautions during ADL tasks. 2=Patient will verbalize/demonstrate understanding of assistive devices/modifications for ADL. 3=Patient will improve strength/tolerance for activity to enable patient to perform ADL's. OT Education/Plan Problem List/Assessment Assessment: Decreased Activ Tolerance, Decreased Safety Aware, Decreased UE Strength, Edema, Impaired Cognition, Impaired Funct Balance, Impaired Self-Care Skills Discharge Recommendations Plan/Recommendations: Continue POC Therapy Discharge Recommendati: Post Acute OT (anticipate return to longterm with continued staff assist ) Comment Further assessment warranted to determine true baseline Treatment Plan/Plan of Care Treatment,Training & Education: Yes Patient would benefit from OT for education, treatment and training to promote independence in ADL's, mobility, safety and/or upper extremity function for ADL's. Plan of Care: ADL Retraining, Caregiver Training, Cognitive Retraining, Functional Mobility, Group Exercise/Act as Ind, UE Funct Exercise/Act Treatment Duration: Dec 07, 2021 Frequency: 3 times per week (3-5x/week) Estimated Hrs Per Day: .25 hour per day Agreement: Yes Rehab Potential: Fair Time/GCodes Start Time: 11:29 Stop Time: 11:39 Total Time Billed (hr/min): 10 Billed Treatment Time 1 visit Shalini Feliciano OT Nov 29, 2021 12:00
[2021-11-29] MEDS: VANCOMYCIN 1500 MG/NS 500 ML IVPB IV SCH ×2 (12:03)
[2021-11-29] MEDS ORDERED: SOTALOL 80 MG (BETAPACE) TAB PO NR (12:45)
--- NOTE | 2021-11-29 12:47 | Consultation-Cardiology ---
HPI-Cardiology Cardiology Consultation: Date of Consultation 11/29/21 Date of Admission 11/28/21 Attending Physician Niko Brown MD Admitting Physician Mckinley Nichols MD Consulting Physician DANY WILLINGHAM JR, MD HPI: Time Seen by a Provider: 12:42 Chief Complaint: Reason for consultation: Atrial fibrillation. I had the pleasure of seeing [facility] on the cardiac stepdown unit at [facility] in [place], [place] today. He normally follows with one of my partners, Dr. Roque. The patient was actually here in the hospital earlier in the week to have an implantable loop recorder placed. This was uneventful. He has been residing at a retirement facility in [place]. Apparently, he had a cough and some shortness of breath and was brought to the hospital for further evaluation. In the emergency room he was found to have atrial fibrillation with a rapid ventricular rate. He was treated with intravenous diltiazem bolus and overnight, the atrial fibrillation resolved. He has been admitted due to possible healthcare acquired pneumonia. He does admit to some short-term memory loss. Nonetheless, he denies any chest discomfort. He has noted increasing dyspnea as well as a cough. He denies paroxysmal nocturnal dyspnea, orthopnea, palpitations, lightheadedness, syncope, or ankle edema. Because of the chest discomfort, a cardiology consultation was requested. There was a note from Dr. Roque earlier in the week that the patient had been on amiodarone and that was to be discontinued. However, upon further review, when the nurse from the stepdown unit spoke to the retirement facility, it appears as though the patient has not taken any amiodarone since August. Certain portions of this document may have been dictated utilizing voice recognition technology. Inherent to this technology, typographical and grammatical errors may exist. As much as I am diligent to identify and correct these mistakes, some errors may remain in the document. Review of Systems-Cardiology Review of Systems Other comments Review of 10 organ systems is as per the history of present illness, otherwise negative. However, due to some short-term memory loss, his answers may not be fairly reliable. All Other Systems Reviewed Negative Unless Noted: Yes JLY-Tcobgv-Vzchan Hx Patient Social History Smoking Status: Former Smoker 2nd Hand Smoke Exposure: No Have you traveled recently?: No Alcohol Use?: No Tobacco type used: Cigarettes Past Medical History PMH As described under Assessment. Family Medical History Family Medical History: The patient does not know of any family history of premature coronary artery disease in first-degree relatives. Allergies and Home Medications Allergies Coded Allergies: No Known Drug Allergies (Unverified , 01/23/12) Patient Home Medication List Home Medication List Reviewed: Yes Acetaminophen (Tylenol Extra Strength) 500 Mg Tablet, 1,000 MG PO Q8H PRN for PAIN-MILD (1-4), (Reported) Entered as Reported by: SANTO HARRIS on 06/04/21 1036 Last Action: Last Taken Edited Albuterol Sulfate (Albuterol Sulfate) 2.5 Mg/3 Ml Vial.neb, 2.5 MG INH Q6H PRN for SHORTNESS OF BREATH, (Reported) Entered as Reported by: JEFF TONY on 11/29/21 0230 Last Action: Last Taken Edited Aspirin (Aspirin EC) 81 Mg Tablet.dr, 81 MG PO BID, (Reported) Entered as Reported by: SANTO HARRIS on 06/04/21 1036 Last Action: Last Taken Edited Bisacodyl (Bisacodyl) 10 Mg Supp.rect, 10 MG RC DAILY PRN for CONSTIPATION-4TH LINE, (Reported) Entered as Reported by: SANTO HARRSI on 07/24/21 1355 Last Action: Last Taken Edited Cholecalciferol (Vitamin D3) (Vitamin D3) 125 Mcg Tablet, 125 MCG PO DAILY, (Reported) Entered as Reported by: MI BONDS on 02/04/21 0849 Last Action: Edited Cyanocobalamin (Vitamin B-12) (Vitamin B-12) 1,000 Mcg Tablet, 1,000 MCG PO DAILY, (Reported) Entered as Reported by: SANTO HARRIS on 07/24/21 135 Last Action: Last Taken Edited Docusate Sodium (Docusate Sodium) 100 Mg Capsule, 100 MG PO DAILY, (Reported) Entered as Reported by: SANTO HARRIS on 06/04/21 1036 Last Action: Last Taken Edited Escitalopram Oxalate (Lexapro) 10 Mg Tablet, 10 MG PO HS, (Reported) Entered as Reported by: SANTO HARRIS on 07/24/21 1355 Last Action: Edited Gabapentin (Neurontin) 300 Mg Capsule, 300 MG PO DAILY, (Reported) Entered as Reported by: SANTO HARRIS on 07/24/211354 Last Action: Last Taken Edited Guaifenesin (Mucinex) 600 Mg Tab.er.12h, 600 MG PO BID, (Reported) Entered as Reported by: SANTO HARRIS on 07/24/211354 Last Action: Last Taken Edited Hydrocodone/Acetaminophen (Hydrocodone-Acetamin 5-325 mg) 1 Each Tablet, 1-2 EA PO Q4H PRN for PAIN-MODERATE (5-7), (Reported) Entered as Reported by: SANTO HARRIS on 07/24/211354 Last Action: Last Taken Edited Melatonin (Melatonin) 3 Mg Tablet, 6 MG PO HS, (Reported) Entered as Reported by: SANTO HARRIS on 07/24/211354 Last Action: Last Taken Edited Mometasone/Formoterol (Dulera 100 Mcg/5 Mcg Inhaler) 13 Gm Hfa.aer.ad, 2 PUFF INH BID, (Reported) Entered as Reported by: SANTO HARRIS on 07/24/211354 Last Action: Last Taken Edited Pantoprazole Sodium (Pantoprazole Sodium) 40 Mg Tablet.dr, 40 MG PO DAILY, (Reported) Entered as Reported by: SANTO HARRIS on 06/04/211035 Last Action: Last Taken Edited Polyethylene Glycol 3350 (Miralax) 17 Gm Powd.pack, 17 GM PO DAILY PRN for CONSTIPATION-2ND LINE, (Reported) Entered as Reported by: SANTO HARRIS on 06/04/21 103 Last Action: Last Taken Edited Sennosides (Senna) 8.6 Mg Tablet, 8.6 MG PO DAILY PRN for CONSTIPATION-5TH LINE, (Reported) Entered as Reported by: SNATO HARRIS on 07/24/211354 Last Action: Last Taken Edited Sodium Chloride (Saline Nasal [place]) 30 Ml [place], 2 SPRAYS NS Q1HR PRN for CONGESTION, (Reported) Entered as Reported by: JEFF TONY on 11/29/216 Last Action: Last Taken Edited Tramadol HCl (Tramadol HCl) 50 Mg Tablet, 50-100 MG PO Q6H PRN for PAIN-MODERATE (5-7), (Reported) Entered as Reported by: SANTO HARRIS on 07/24/211354 Last Action: Last Taken Edited Vit A & D3 in Cod Liver Oil (Cod Liver Oil Softgel) 1 Each Capsule, 2 EACH PO DAILY, (Reported) Entered as Reported by: SANTO HARRIS on 07/24/21 1355 Last Action: Last Taken Edited Discontinued Medications Albuterol Sulfate (Albuterol Sulfate) 2.5 Mg/0.5 Ml Vial.neb, 2.5 MG INH Q6H PRN for SHORTNESS OF BREATH, (Reported) Discontinued Reason: No Longer Taking Entered as Reported by: SANTO HARRIS on 07/24/21 1359 Last Action: Discontinued Amiodarone HCl (Amiodarone HCl) 200 Mg Tablet, 200 MG PO DAILY, (Reported) Discontinued Reason: No Longer Taking Entered as Reported by: SANTO HARRIS on 06/04/21 1036 Last Action: Discontinued Cefdinir (Cefdinir) 300 Mg Capsule, 300 MG PO BID Discontinued Reason: No Longer Taking Prescribed by: NIKO BROWN on 07/28/21 0906 Last Action: Discontinued Exam Vital Signs Vital Signs Date Time Temp Pulse Resp B/P (MAP) Pulse Ox O2 Delivery O2 Flow Rate FiO2 11/29/21 14:52 74 11/29/21 12:00 Nasal Cannula 2.00 11/29/21 10:41 96 11/29/21 08:00 36.1 21 147/76 (99) 11/28/21 22:35 32 Physical Exam General: Alert. No acute distress. Well nourished and appears stated age. Eye: Extraocular movements are intact. Conjunctivae are clear. There are no xanthelasma. HENT: Normocephalic. Atraumatic. Carotid pulsations 2/2 without bruits. Neck: Jugular venous pressure does not appear elevated. No thyromegaly appreciated. Respiratory: Lungs are clear to auscultation. Respirations are non-labored. Breath sounds are equal. Symmetrical chest wall expansion. Cardiovascular: Normal rate. Regular rhythm. No murmur. No gallop. Point of maximal impulse is not appear displaced. Good pulses equal in all extremities. No edema. Gastrointestinal: Soft. Normal bowel sounds. Skin: Skin turgor is normal. There is no pallor. Musculoskeletal: No kyphosis or scoliosis appreciated. Neurologic: Alert and oriented to person and place but not time. Cranial nerves 3-12 appear grossly intact. The patient has good motor tone strength in the upper and lower extremities bilaterally. Psychiatric: Cooperative. Appropriate mood & affect. Labs Laboratory Tests Test 11/28/21 17:10 11/28/21 17:33 11/28/21 17:41 11/29/21 05:22 Range/Units White Blood Count 17.8 H 13.4 H 4.3-11.0 10^3/uL Red Blood Count 3.71 L 3.25 L 4.30-5.52 10^6/uL Hemoglobin 11.6 L 10.2 L 13.3-17.7 g/dL Hematocrit 37 L 32 L 40-54 % Mean Corpuscular Volume 99 98 80-99 fL Mean Corpuscular Hemoglobin 31 31 25-34 pg Mean Corpuscular Hemoglobin Concent 32 32 32-36 g/dL Red Cell Distribution Width 13.2 13.1 10.0-14.5 % Platelet Count 234 194 130-400 10^3/uL Mean Platelet Volume 9.9 9.8 9.0-12.2 fL Immature Granulocyte % (Auto) 1 1 % Neutrophils (%) (Auto) 79 H 93 H 42-75 % Lymphocytes (%) (Auto) 5 L 4 L 12-44 % Monocytes (%) (Auto) 14 H 3 0-12 % Eosinophils (%) (Auto) 0 0 0-10 % Basophils (%) (Auto) 0 0 0-10 % Neutrophils # (Auto) 14.1 H 12.4 H 1.8-7.8 10^3/uL Lymphocytes # (Auto) 1.0 0.5 L 1.0-4.0 10^3/uL Monocytes # (Auto) 2.5 H 0.3 0.0-1.0 10^3/uL Eosinophils # (Auto) 0.1 0.0 0.0-0.3 10^3/uL Basophils # (Auto) 0.0 0.0 0.0-0.1 10^3/uL Immature Granulocyte # (Auto) 0.1 0.1 0.0-0.1 10^3/uL Neutrophils % (Manual) 85 % Lymphocytes % (Manual) 1 % Monocytes % (Manual) 13 % Eosinophils % (Manual) 1 % Blood Morphology Comment NORMAL Prothrombin Time 14.9 H 12.2-14.7 SEC INR Comment 1.1 0.8-1.4 Activated Partial Thromboplast Time 34 24-35 SEC Sodium Level 137 140 135-145 MMOL/L Potassium Level 4.2 4.7 3.6-5.0 MMOL/L Chloride Level 98 105 98-107 MMOL/L Carbon Dioxide Level 26 24 21-32 MMOL/L Anion Gap 13 11 5-14 MMOL/L Blood Urea Nitrogen 32 H 31 H 7-18 MG/DL Creatinine 1.65 H 1.48 H 0.60-1.30 MG/DL Estimat Glomerular Filtration Rate 41 47 BUN/Creatinine Ratio 19 21 Glucose Level 131 H 153 H 70-105 MG/DL Lactic Acid Level 1.88 0.50-2.00 MMOL/L Calcium Level 9.6 9.1 8.5-10.1 MG/DL Corrected Calcium 9.8 9.7 8.5-10.1 MG/DL Total Bilirubin 0.4 0.3 0.1-1.0 MG/DL Aspartate Amino Transf (AST/SGOT) 17 13 5-34 U/L Alanine Aminotransferase (ALT/SGPT) 18 16 0-55 U/L Alkaline Phosphatase 93 77 40-136 U/L Troponin I < 0.028 <0.028 NG/ML C-Reactive Protein High Sensitivity 28.37 H 0.00-0.50 MG/DL B-Type Natriuretic Peptide 110.9 H <100.0 PG/ML Total Protein 7.6 6.7 6.4-8.2 GM/DL Albumin 3.7 3.3 3.2-4.5 GM/DL Procalcitonin 0.32 H <0.10 NG/ML Urine Color YELLOW Urine Clarity CLEAR Urine pH 5.0 5-9 Urine Specific Skipwith 1.025 H 1.016-1.022 Urine Protein 1+ H NEGATIVE Urine Glucose (UA) NEGATIVE NEGATIVE Urine Ketones NEGATIVE NEGATIVE Urine Nitrite POSITIVE H NEGATIVE Urine Bilirubin NEGATIVE NEGATIVE Urine Urobilinogen 0.2 < = 1.0 MG/DL Urine Leukocyte Esterase 1+ H NEGATIVE Urine RBC (Auto) TRACE-I H NEGATIVE Urine RBC NONE /HPF Urine WBC 5-10 H /HPF Urine Squamous Epithelial Cells 0-2 /HPF Urine Renal Epithelial Cells 0-2 /HPF Urine Crystals NONE /LPF Urine Bacteria MODERATE H /HPF Urine Casts NONE /LPF Urine Mucus NEGATIVE /LPF Urine Culture Indicated CULTURE PENDING Influenza Type A (RT-PCR) Not Detected Not Detecte Influenza Type B (RT-PCR) Not Detected Not Detecte SARS-CoV-2 RNA (RT-PCR) Not Detected Not Detecte Phosphorus Level 3.0 2.3-4.7 MG/DL Magnesium Level 1.8 1.6-2.4 MG/DL ECG Impression ECG Comment Electrocardiogram just obtained shows sinus rhythm at a heart rate of 66 bpm with nonspecific intraventricular conduction delay. Diagnosis/Problems Diagnosis/Problems (1) Persistent atrial fibrillation Assessment & Plan: He has previous history of atrial fibrillation and now appeared to have a recurrence. He had previously been on amiodarone which it appears he has not taken for 3 months. 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 Due to recurrent atrial fibrillation, I will restart apixaban. Due to age over 80 and creatinine above 1.5, he will need the renal adjusted dose. I will also start him on sotalol for rhythm management. As with the apixaban, he will need a renal adjusted dose. We may need to keep him in the hospital for 48-72 hours to complete loading on the sotalol. (2) Stage 3a chronic kidney disease Assessment & Plan: As above, due to the chronic kidney disease, his apixaban and sotalol have been renal dose adjusted. DANY WILLINGHAM JR, MD Nov 29, 2021 12:47
[2021-11-29 16:00] VITALS: BP 138/80
--- NOTE | 2021-11-29 17:05 | History & Physical-Hospitalist ---
History of Present Illness HPI/Chief Complaint [facility] Pham is an 81 year old male with PMH AFib, COPD, suprapubic catheter, who presented with shortness of breath. He also reports having a cough. He had a fever last night. He generally feels unwell. He is not sure if it is related to his implantable loop recorder being placed yesterday. he says he hasn't felt we ll since breaking his hip nearly a year ago. He is confused. He is orienter to person, but disoirented to place and date. He denies abdominal pain, nausea, and vomiting. Source: patient Exam Limitations: no limitations Date Seen 11/29/21 Time Seen by a Provider: 10:10 Attending Physician Niko Brown MD PCP Mckinley Nichols MD Referring Physician Date of Admission Nov 28, 2021 at 19:56 Home Medications & Allergies Home Medications Reviewed patient Home Medication Reconciliation performed by pharmacy medication reconciliations coding technician and/or nursing. Patients Allergies have been reviewed. Allergies Allergies Coded Allergies No Known Drug Allergies (Unverified01/23/12) Past Rjpqymi-Zfmecp-Htlwmh Hx Patient Social History Tobacco Use?: Yes Tobacco type used: Cigarettes Smoking Status: Former Smoker Use of E-Cig and/or Vaping dev: No Substance use?: No Alcohol Use?: No Immunizations Up To Date First/Initial COVID19 Vaccinat: 2020 Second COVID19 Vaccination Rufino: 2020 Tetanus Booster (TDap): Unknown Hepatitis A: No Hepatitis B: No Current Status Advance Directives: Yes Advance Directive Location: Family to bring in copy Communicates: Verbally Primary Language: Yoruba Preferred Spoken Language: Yoruba Is interpretation needed?: No Implanted or Applied Medical D: Other Past Medical History Surgeries: Orthopedic COPD Currently Using CPAP: No Currently Using BIPAP: No Atrial Fibrillation, Hypertension Renal Failure Blood Disorders: No Family Medical History No Pertinent Family Hx Review of Systems Constitutional: fever, malaise EENTM: no symptoms reported Respiratory: cough, short of breath Cardiovascular: no symptoms reported Gastrointestinal: no symptoms reported Genitourinary: no symptoms reported Musculoskeletal: no symptoms reported Skin: no symptoms reported Psychiatric/Neurological: No Symptoms Reported Physical Exam Physical Exam Vital Signs Vital Signs - First Documented 11/28/21 11/28/21 17:11 22:35 Temp 39.1 Pulse 108 Resp 20 B/P (MAP) 132/87 (102) Pulse Ox 94 O2 Delivery Nasal Cannula O2 Flow Rate 2.00 FiO2 32 Capillary Refill : Height, Weight, BMI Height: 6'2.00" Weight: 186lbs. oz. 81.123494pu; 24.21 BMI Method: General Appearance: No Apparent Distress, Chronically ill HEENT: PERRL/EOMI, Pharynx Normal Neck: Normal Inspection, Supple Respiratory: Lungs Clear, Normal Breath Sounds, No Respiratory Distress Cardiovascular: Regular Rate, Rhythm, No Edema, No Murmur, Normal Peripheral Pulses Gastrointestinal: Normal Bowel Sounds, Non Tender, Soft Extremity: Normal Capillary Refill, Normal Inspection, No Pedal Edema Neurologic/Psychiatric: Alert, Normal Mood/Affect Skin: Normal Color, Warm/Dry Results Results/Procedures Labs Laboratory Tests 11/28/21 17:10 11/29/21 05:22 Patient resulted labs reviewed. Imaging: Reviewed Imaging Report Assessment/Plan Admission Diagnosis Sepsis due to pneumonia and urinary tract infection Admission Status: Inpatient Order (span 2 midnights) Reason for Inpatient Admission: IV antibiotics Assessment and Plan Sepsis Pneumonia Urinary tract infection Suprapubic catheter SIRS+ with leukocytosis and fever CXR with infiltrates Procalcitonin elevated UA concerning for possible UTI Urine culture growing Pseudomonas Started on Vancomycin and Cefepime MERVIN on CKD3a IV fluids AFib COPD Continue home meds DVT prophylaxis: already receiving therapeutic anticoagulation Diagnosis/Problems Diagnosis/Problems (1) Sepsis Status: Acute (2) PNA (pneumonia) Status: Acute (3) Pseudomonas urinary tract infection Status: Acute (4) Suprapubic catheter Status: Chronic (5) Afib Status: Chronic (6) Stage 3a chronic kidney disease Status: Chronic (7) MERVIN (acute kidney injury) Status: Acute NIKO BROWN MD Nov 29, 2021 17:05
[2021-11-29 20:00] VITALS: BP 119/56
[2021-11-30] VITALS: BP 130/75
[2021-11-30] MEDS: CEFEPIME INJECTION 1,000 MG in NS (IVPB) 50 ML IV SCH ×3 (00:39→17:17)
[2021-11-30] MEDS: RT-ALBUTEROL/IPRATROPIUM 3 ML (DUONEB) VIAL INH SCH ×5 (02:02→19:03)
[2021-11-30 04:00] VITALS: BP 131/71
[2021-11-30] MEDS: NS IV 1000 ML 1,000 ML IV SCH (05:20)
[2021-11-30 05:41] LABS: BASOPHILS % (AUTO) 0 % (0-10); EOSINOPHILS % (AUTO) 0 % (0-10); HEMATOCRIT 30 % (40-54); HEMOGLOBIN 9.5 g/dL (13.3-17.7); LYMPHOCYTES % (AUTO) 7 % (12-44); MEAN CORPUSCULAR HEMOGLOBIN 31 pg (25-34); MEAN CORPUSCULAR HGB CONC 32 g/dL (32-36); MEAN CORPUSCULAR VOLUME 98 fL (80-99); MEAN PLATELET VOLUME 10.5 fL (9.0-12.2); MONOCYTES # (AUTO) 1.4 10^3/uL (0.0-1.0); MONOCYTES % (AUTO) 9 % (0-12); NEUTROPHILS # (AUTO) 12.6 10^3/uL (1.8-7.8); NEUTROPHILS % (AUTO) 83 % (42-75); PLATELET COUNT 198 10^3/uL (130-400); WHITE BLOOD COUNT 15.2 10^3/uL (4.3-11.0)
[2021-11-30 05:51] LABS: ALBUMIN 3.2 GM/DL (3.2-4.5); POTASSIUM 4.5 MMOL/L (3.6-5.0)
[2021-11-30 05:53] LABS: CALCIUM 8.9 MG/DL (8.5-10.1)
[2021-11-30 05:54] LABS: TOTAL PROTEIN 6.3 GM/DL (6.4-8.2)
[2021-11-30 05:56] LABS: BILIRUBIN,TOTAL 0.2 MG/DL (0.1-1.0)
[2021-11-30 05:57] LABS: PHOSPHORUS 2.8 MG/DL (2.3-4.7)
[2021-11-30 05:58] LABS: CREATININE SERUM 1.44 MG/DL (0.60-1.30)
[2021-11-30 06:00] LABS: MAGNESIUM 1.8 MG/DL (1.6-2.4)
[2021-11-30] MEDS: POTASSIUM CL 10MEQ/50ML IVPB 50 ML IV SCH (06:46)
[2021-11-30] MEDS: MAGNESIUM 1 GM/100 ML IVPB 100 ML IV SCH (06:46)
[2021-11-30] MEDS: KCL 20 MEQ TAB (K-DUR) PO SCH (06:46)
--- NOTE | 2021-11-30 07:31 | Diagnostic Imaging Report ---
EXAM: CHEST 1 VIEW, AP/PA ONLY INDICATION: Pneumonia. COMPARISON: 11/29/2021. FINDINGS: Normal heart size and central pulmonary vascularity. Implanted loop recorder. Prominent interstitial pattern is similar to the prior exam. No new focal pulmonary opacity. No pleural effusion or pneumothorax. No acute osseous findings. IMPRESSION: Prominent interstitium is similar to the prior exam and may be chronic. No acute cardiopulmonary findings. Dictated by: Dictated on workstation # [id number]
[2021-11-30 08:00] VITALS: BP 160/86
[2021-11-30] MEDS: APIXABAN 2.5 MG (ELIQUIS) TABLET PO SCH ×2 (08:15→20:44)
[2021-11-30] MEDS: SENNOSIDES 8.6 MG (SENOKOT) TAB PO SCH ×2 (08:15→20:43)
[2021-11-30] MEDS: FAMOTIDINE 20 MG (PEPCID) TABLET PO SCH (08:15)
[2021-11-30] MEDS: DOCUSATE SODIUM 100 MG (COLACE) CAP PO SCH ×2 (08:15→20:43)
--- NOTE | 2021-11-30 09:39 | Physical Therapy Daily Note ---
PT Daily Note-Current Subjective Pt. up in chair, agrees to therapy. No complaints. Mental Status Patient Orientation: Person, Place, Time, Situation Attachments: Oxygen, Gunderson Catheter, IV Transfers SCALE: Activities may be completed with or without assistive devices. 7-Tskepazbru-eolwihr completes the activity by him/herself with no assistance from a helper. 5-Set-up or Clean-up Assistance-helper sets up or cleans up; patient completes activity. [place] assists only prior to or following the activity. 4-Supervision or Touching Assistance-helper provides verbal cues and/or touching/steadying and/or contact guard assistance as patient completes activity. Assistance may be provided throughout the activity or intermittently. 3-Partial/Moderate Assistance-helper does LESS THAN HALF the effort. [place] lifts, holds or supports trunk or limbs, but provides less than half the effort. 2-Substantial/Maximal Assistance-helper does MORE THAN HALF the effort. [place] lifts or holds trunk or limbs and provides more than half the effort. 7-Xnohotawl-bnxums does ALL the effort. Patient does none of the effort to complete the activity. Or, the assistance of 2 or more helpers is required for the patient to complete the activity. If activity was not attempted, code reason: 7-Patient Refused. 9-Not Applicable-not attempted and the patient did not perform the activity before the current illness, exacerbation or injury. 10-Not Attempted due to Environmental Limitations-(lack of equipment, weather restraints, etc.). 88-Not Attempted due to Medical Conditions or Safety Concerns. Sit to Stand (QC): 4 Weight Bearing Right Lower Extremity: Right Full Weight Bearing Left Lower Extremity: Left Full Weight Bearing Exercises Seated Therapy Exercises: Ankle pumps, Long arc quads, Hip flexion, Hip abd/add, Glut set Seated Reps: 20 Standing: Heel/toe raises, Marching Standing Reps: 10 Treatments LE exercises Assessment Current Status: Good Progress, Fair Progress Pt. does well with exercises and stands with SBA only, however O2 sats dropped to 80s with standing exercises; recovered >90% when seated. Pt. is encouraged to use spirometer which he says he hasn't but later agrees. Pt. in bedside chair post session with call light and all needs met. PT Prison Goals Prison Goals PT Script Reader Goals Time Frame: Dec 07, 2021 Roll Left & Right (QC): 4 Sit to Lying (QC): 4 Lying-Sitting on Side/Bed(QC): 4 Sit to Stand (QC): 4 Chair/Yxh-yb-Yeqif Xfer(QC): 4 Toilet Transfer (QC): 4 Walk 10 feet (QC): 4 Walk 50ft with 2 Turns (QC): 4 Walk 150 ft (QC): 4 PT Plan Treatment/Plan Treatment Plan: Continue Plan of Care Treatment Plan: Bed Mobility, Education, Functional Activity Mloly, Functional Strength, Gait, Safety, Therapeutic Exercise, Transfers Treatment Duration: Dec 07, 2021 Frequency: 6 times per week Estimated Hrs Per Day: .25 hour per day Patient and/or Family Agrees t: Yes Time/GCodes Time In: 827 Time Out: 842 Total Billed Treatment Time: 15 Total Billed Treatment 1, Ex 15' PARTHA KERR PT Nov 30, 2021 09:39
[2021-11-30] MEDS: SOTALOL 80 MG (BETAPACE) TAB PO SCH (09:56)
[2021-11-30] MEDS ORDERED: TROUGH ORDER-PHARMACY XX NR (10:00)
--- NOTE | 2021-11-30 11:38 | Cardiology Progress Note ---
Progress Note-Cardiology Events since last exam Date Seen by Provider: Nov 30, 2021 Time Seen by Provider: 11:33 Events since last exam I am following him due to atrial fibrillation. He received his second daily dose of sotalol this morning. He was sitting up in a chair. He denies chest discomfort, dyspnea, palpitations, syncope, or ankle edema. He is hoping to be discharged tomorrow so that he can have Easter Thursday dinner with his son and family. Certain portions of this document may have been dictated utilizing voice recognition technology. Inherent to this technology, typographical and grammatical errors may exist. As much as I am diligent to identify and correct these mistakes, some errors may remain in the document. Vitals Last set of Vitals Signs Vital Signs 11/28/21 11/30/21 11/30/21 11/30/21 22:35 08:00 09:56 10:55 Temp 36.3 Pulse 56 Resp 16 B/P (MAP) 160/86 (110) Pulse Ox 95 O2 Delivery Nasal Cannula O2 Flow Rate 2.00 FiO2 32 Labs Labs Laboratory Tests 11/30/21 05:17 Exam Vital Signs Vital Signs Date Time Temp Pulse Resp B/P (MAP) Pulse Ox O2 Delivery O2 Flow Rate FiO2 11/30/21 10:55 95 Nasal Cannula 2.00 11/30/21 09:56 56 11/30/21 08:00 36.3 16 160/86 (110) 11/28/21 22:35 32 Physical Exam General: Alert. No acute distress. Eye: No xanthelasma. HENT: Normocephalic. Neck: Jugular venous pressure does not appear elevated. Respiratory: Lungs are clear to auscultation. Respirations are non-labored. Breath sounds are equal. Symmetrical chest wall expansion. Cardiovascular: Normal rate. Regular rhythm. No murmur. No gallop. No edema. Gastrointestinal: Soft. Normal bowel sounds. Skin: Warm. Dry. Neurologic: Alert and oriented to person, place, time. Cranial nerves 3-11 grossly intact. Psychiatric: Cooperative. Appropriate mood & affect. Labs Laboratory Tests Test 11/30/21 05:17 11/30/21 11:07 Range/Units White Blood Count 15.2 H 4.3-11.0 10^3/uL Red Blood Count 3.05 L 4.30-5.52 10^6/uL Hemoglobin 9.5 L 13.3-17.7 g/dL Hematocrit 30 L 40-54 % Mean Corpuscular Volume 98 80-99 fL Mean Corpuscular Hemoglobin 31 25-34 pg Mean Corpuscular Hemoglobin Concent 32 32-36 g/dL Red Cell Distribution Width 13.2 10.0-14.5 % Platelet Count 198 130-400 10^3/uL Mean Platelet Volume 10.5 9.0-12.2 fL Immature Granulocyte % (Auto) 1 % Neutrophils (%) (Auto) 83 H 42-75 % Lymphocytes (%) (Auto) 7 L 12-44 % Monocytes (%) (Auto) 9 0-12 % Eosinophils (%) (Auto) 0 0-10 % Basophils (%) (Auto) 0 0-10 % Neutrophils # (Auto) 12.6 H 1.8-7.8 10^3/uL Lymphocytes # (Auto) 1.0 1.0-4.0 10^3/uL Monocytes # (Auto) 1.4 H 0.0-1.0 10^3/uL Eosinophils # (Auto) 0.0 0.0-0.3 10^3/uL Basophils # (Auto) 0.0 0.0-0.1 10^3/uL Immature Granulocyte # (Auto) 0.2 H 0.0-0.1 10^3/uL Sodium Level 140 135-145 MMOL/L Potassium Level 4.5 3.6-5.0 MMOL/L Chloride Level 108 H 98-107 MMOL/L Carbon Dioxide Level 20 L 21-32 MMOL/L Anion Gap 12 5-14 MMOL/L Blood Urea Nitrogen 38 H 7-18 MG/DL Creatinine 1.44 H 0.60-1.30 MG/DL Estimat Glomerular Filtration Rate 49 BUN/Creatinine Ratio 26 Glucose Level 101 70-105 MG/DL Calcium Level 8.9 8.5-10.1 MG/DL Corrected Calcium 9.5 8.5-10.1 MG/DL Phosphorus Level 2.8 2.3-4.7 MG/DL Magnesium Level 1.8 1.6-2.4 MG/DL Total Bilirubin 0.2 0.1-1.0 MG/DL Aspartate Amino Transf (AST/SGOT) 13 5-34 U/L Alanine Aminotransferase (ALT/SGPT) 12 0-55 U/L Alkaline Phosphatase 71 40-136 U/L Total Protein 6.3 L 6.4-8.2 GM/DL Albumin 3.2 3.2-4.5 GM/DL Diagnosis/Problems Diagnosis/Problems (1) Persistent atrial fibrillation Assessment & Plan: He has a previous history of paroxysmal atrial fibrillation and now appeared to have a recurrence. He had previously been on amiodarone which it appears he has not taken for 3 months. His primary instructional support technician was planning to keep him off amiodarone. Due to recurrent atrial fibrillation, I restarted apixaban. Due to age over 80 and creatinine above 1.5, he will need the renal adjusted dose. I will also started him on sotalol for rhythm management. As with the apixaban, he needs a renal adjusted dose. He will receive his third daily dose of sotalol tomorrow morning and 2 hours later will need an electrocardiogram. Assuming he remains in sinus rhythm and his QTc is acceptable, he can likely be discharged home tomorrow. I should note, he was actually in a senior living facility prior to this admission. (2) Stage 3a chronic kidney disease Status: Chronic Assessment & Plan: As above, due to the chronic kidney disease, his apixaban and sotalol have been renal dose adjusted. (3) Frailty Assessment & Plan: Given his current clinical status, I would characterize him as moderately frail. DANY WILLINGHAM JR, MD Nov 30, 2021 11:38
[2021-11-30 11:46] LABS: TRIGLYCERIDES 65 MG/DL (<150); VLDL CHOLESTEROL 13 MG/DL (5-40)
[2021-11-30] MEDS: VANCOMYCIN 1500 MG/NS 500 ML IVPB IV SCH ×2 (11:48)
[2021-11-30 11:51] LABS: CHOLESTEROL 144 MG/DL (< 200)
[2021-11-30 11:52] LABS: HDL CHOLESTEROL 30 MG/DL (40-60)
[2021-11-30 12:00] VITALS: BP 133/72
--- NOTE | 2021-11-30 15:41 | Progress Note - Hospitalist ---
Subjective HPI/CC On Admission Date Seen by Provider: Nov 30, 2021 Time Seen by Provider: 09:40 Kaiser Pham is an 81 year old male with PMH AFib, COPD, suprapubic catheter, who presented with shortness of breath. He also reports having a cough. He had a fever last night. He generally feels unwell. He is not sure if it is related to his implantable loop recorder being placed yesterday. he says he hasn't felt well since breaking his hip nearly a year ago. He is confused. He is orienter to person, but disoirented to place and date. He denies abdominal pain, nausea, and vomiting. Subjective/Events-last exam He is feeling better today. He does not like all the cords hooked up to him. He denies pain. He denies breathing trouble. Focused Exam Lactate Level 11/28/21 17:10: Lactic Acid Level 1.88 Objective Exam Vital Signs Vital Signs Date Time Temp Pulse Resp B/P (MAP) Pulse Ox O2 Delivery O2 Flow Rate FiO2 11/30/21 14:46 95 Nasal Cannula 2.00 11/30/21 12:30 53 11/30/21 12:00 36.1 14 133/72 (92) 11/28/21 22:35 32 Capillary Refill : General Appearance: No Apparent Distress, Chronically ill Respiratory: Lungs Clear, No Respiratory Distress Cardiovascular: Regular Rate, Rhythm, No Murmur Gastrointestinal: Normal Bowel Sounds, Soft Extremity: Normal Inspection, No Pedal Edema Neurologic/Psychiatric: Alert, Normal Mood/Affect, Disoriented Skin: Normal Color, Warm/Dry Results/Procedures Lab Laboratory Tests 11/30/21 05:17 Patient resulted labs reviewed. Imaging: Reviewed Imaging Report Assessment/Plan Assessment and Plan Assess & Plan/Chief Complaint Sepsis Pneumonia Urinary tract infection Suprapubic catheter SIRS+ with leukocytosis and fever CXR with infiltrates Procalcitonin elevated UA concerning for possible UTI Urine culture growing Pseudomonas Continue Cefepime Stop Vancomycin MERVIN on CKD3a Stop IV fluids Creatinine appears to be at baseline AFib Cardiology following Started on Sotalol Continue Eliquis COPD Continue home meds DVT prophylaxis: already receiving therapeutic anticoagulation Diagnosis/Problems Diagnosis/Problems (1) Sepsis Status: Acute (2) PNA (pneumonia) Status: Acute (3) Pseudomonas urinary tract infection Status: Acute (4) Suprapubic catheter Status: Chronic (5) Afib Status: Chronic (6) Stage 3a chronic kidney disease Status: Chronic (7) MERVIN (acute kidney injury) Status: Acute NIKO BROWN MD Nov 30, 2021 15:41
[2021-11-30 16:00] VITALS: BP 123/62
[2021-11-30 21:30] VITALS: BP 139/68
[2021-12-01] VITALS: BP 116/61
[2021-12-01] MEDS: CEFEPIME INJECTION 1,000 MG in NS (IVPB) 50 ML IV SCH ×4 (00:32→23:39)
[2021-12-01 04:00] VITALS: BP 127/63
[2021-12-01 05:27] LABS: BASOPHILS # (AUTO) 0.1 10^3/uL (0.0-0.1); BASOPHILS % (AUTO) 0 % (0-10); EOSINOPHILS # (AUTO) 0.1 10^3/uL (0.0-0.3); EOSINOPHILS % (AUTO) 1 % (0-10); HEMATOCRIT 34 % (40-54); HEMOGLOBIN 10.8 g/dL (13.3-17.7); LYMPHOCYTES # (AUTO) 0.8 10^3/uL (1.0-4.0); LYMPHOCYTES % (AUTO) 5 % (12-44); MEAN CORPUSCULAR HEMOGLOBIN 31 pg (25-34); MEAN CORPUSCULAR HGB CONC 32 g/dL (32-36); MEAN CORPUSCULAR VOLUME 98 fL (80-99); MEAN PLATELET VOLUME 9.9 fL (9.0-12.2); MONOCYTES % (AUTO) 14 % (0-12); NEUTROPHILS # (AUTO) 11.3 10^3/uL (1.8-7.8); NEUTROPHILS % (AUTO) 78 % (42-75); PLATELET COUNT 253 10^3/uL (130-400); WHITE BLOOD COUNT 14.5 10^3/uL (4.3-11.0)
[2021-12-01 05:36] LABS: POTASSIUM 4.1 MMOL/L (3.6-5.0)
[2021-12-01 05:38] LABS: CALCIUM 9.3 MG/DL (8.5-10.1)
[2021-12-01 05:42] LABS: CREATININE SERUM 1.53 MG/DL (0.60-1.30)
[2021-12-01 05:44] LABS: MAGNESIUM 1.8 MG/DL (1.6-2.4)
[2021-12-01] MEDS: POTASSIUM CL 10MEQ/50ML IVPB 50 ML IV SCH (06:26)
[2021-12-01] MEDS: KCL 20 MEQ TAB (K-DUR) PO SCH (06:27)
[2021-12-01] MEDS: MAGNESIUM 1 GM/100 ML IVPB 100 ML IV SCH (06:27)
[2021-12-01 07:44] VITALS: BP 141/72
[2021-12-01] MEDS: DOCUSATE SODIUM 100 MG (COLACE) CAP PO SCH ×2 (08:00→20:31)
[2021-12-01] MEDS: APIXABAN 2.5 MG (ELIQUIS) TABLET PO SCH ×4 (08:00→20:31)
[2021-12-01] MEDS: FAMOTIDINE 20 MG (PEPCID) TABLET PO SCH (08:00)
[2021-12-01] MEDS: SENNOSIDES 8.6 MG (SENOKOT) TAB PO SCH ×2 (08:00→20:31)
[2021-12-01] MEDS: RT-ALBUTEROL/IPRATROPIUM 3 ML (DUONEB) VIAL INH SCH ×4 (08:20→20:52)
[2021-12-01] MEDS: SOTALOL 80 MG (BETAPACE) TAB PO SCH (09:05)
--- NOTE | 2021-12-01 09:19 | Cardiology Progress Note ---
Progress Note-Cardiology Events since last exam Date Seen by Provider: Dec 01, 2021 Time Seen by Provider: 09:16 Events since last exam I am following him due to atrial fibrillation. He received his third dose of sotalol this morning. He is on renal adjusted dose and only gets this once a day. This morning he expressed concerns about taking blood thinners because he feels as though the are dangerous and could kill him. He denies chest discomfort, dyspnea at rest, palpitations, syncope, or ankle edema. Certain portions of this document may have been dictated utilizing voice recognition technology. Inherent to this technology, typographical and grammatical errors may exist. As much as I am diligent to identify and correct these mistakes, some errors may remain in the document. Vitals Last set of Vitals Signs Vital Signs 11/28/21 12/01/21 12/01/21 22:35 07:44 08:20 Temp 36.8 Pulse 67 Resp 18 B/P (MAP) 141/72 (95) Pulse Ox 94 O2 Delivery Nasal Cannula O2 Flow Rate 3.00 FiO2 32 Labs Labs Laboratory Tests 12/01/21 05:20 Exam Vital Signs Vital Signs Date Time Temp Pulse Resp B/P (MAP) Pulse Ox O2 Delivery O2 Flow Rate FiO2 12/01/21 08:20 94 Nasal Cannula 3.00 12/01/21 07:44 36.8 67 18 141/72 (95) 11/28/21 22:35 32 Physical Exam General: Alert. No acute distress. Eye: No xanthelasma. HENT: Normocephalic. Neck: Jugular venous pressure does not appear elevated. Respiratory: Lungs are clear to auscultation. Respirations are non-labored. Breath sounds are equal. Symmetrical chest wall expansion. Cardiovascular: Normal rate. Regular rhythm. No murmur. No gallop. No edema. Gastrointestinal: Soft. Normal bowel sounds. Skin: Warm. Dry. Neurologic: Alert and oriented to person, place, time. Cranial nerves 3-11 grossly intact. Psychiatric: Cooperative. Appropriate mood & affect. Labs Laboratory Tests Test 11/30/21 11:07 12/01/21 05:20 Range/Units Vancomycin Level Trough 15.9 10.0-20.0 UG/ML White Blood Count 14.5 H 4.3-11.0 10^3/uL Red Blood Count 3.44 L 4.30-5.52 10^6/uL Hemoglobin 10.8 L 13.3-17.7 g/dL Hematocrit 34 L 40-54 % Mean Corpuscular Volume 98 80-99 fL Mean Corpuscular Hemoglobin 31 25-34 pg Mean Corpuscular Hemoglobin Concent 32 32-36 g/dL Red Cell Distribution Width 13.2 10.0-14.5 % Platelet Count 253 130-400 10^3/uL Mean Platelet Volume 9.9 9.0-12.2 fL Immature Granulocyte % (Auto) 2 % Neutrophils (%) (Auto) 78 H 42-75 % Lymphocytes (%) (Auto) 5 L 12-44 % Monocytes (%) (Auto) 14 H 0-12 % Eosinophils (%) (Auto) 1 0-10 % Basophils (%) (Auto) 0 0-10 % Neutrophils # (Auto) 11.3 H 1.8-7.8 10^3/uL Lymphocytes # (Auto) 0.8 L 1.0-4.0 10^3/uL Monocytes # (Auto) 2.0 H 0.0-1.0 10^3/uL Eosinophils # (Auto) 0.1 0.0-0.3 10^3/uL Basophils # (Auto) 0.1 0.0-0.1 10^3/uL Immature Granulocyte # (Auto) 0.2 H 0.0-0.1 10^3/uL Sodium Level 139 135-145 MMOL/L Potassium Level 4.1 3.6-5.0 MMOL/L Chloride Level 106 98-107 MMOL/L Carbon Dioxide Level 20 L 21-32 MMOL/L Anion Gap 13 5-14 MMOL/L Blood Urea Nitrogen 33 H 7-18 MG/DL Creatinine 1.53 H 0.60-1.30 MG/DL Estimat Glomerular Filtration Rate 45 BUN/Creatinine Ratio 22 Glucose Level 90 70-105 MG/DL Calcium Level 9.3 8.5-10.1 MG/DL Magnesium Level 1.8 1.6-2.4 MG/DL Diagnosis/Problems Diagnosis/Problems (1) Persistent atrial fibrillation Assessment & Plan: He has a previous history of paroxysmal atrial fibrillation and now appeared to have a recurrence during this hospitalization. He had previously been on amiodarone which it appears he has not taken for 3 months. His primary first assist was planning to keep him off amiodarone. Due to recurrent atrial fibrillation, I restarted apixaban. Due to age over 80 and creatinine above 1.5, he is on the renal adjusted dose. I will also started him on sotalol for rhythm management. As with the apixaban, he needs a renal adjusted dose. As above, he received his third dose of sotalol this morning and if his QTc remains acceptable, from a cardiac standpoint, he can be transferred back to the [facility] facility later today. I did explain to him that the risk of hemorrhagic side effects from Eliquis far outweigh the risk of stroke. He agreed to take the medication but does want to speak with his son about ongoing use of blood thinners. (2) Stage 3a chronic kidney disease Status: Chronic Assessment & Plan: As above, due to the chronic kidney disease, his apixaban and sotalol have been renal dose adjusted. (3) Frailty Assessment & Plan: Given his current clinical status, I would characterize him as moderately frail. DANY WILLINGHAM JR, MD Dec 01, 2021 09:19
[2021-12-01 11:31] VITALS: BP 137/68
--- NOTE | 2021-12-01 11:50 | Progress Note - Hospitalist ---
Subjective HPI/CC On Admission Date Seen by Provider: Dec 01, 2021 Time Seen by Provider: 10:25 Kaiser Pham is an 81 year old male with PMH AFib, COPD, suprapubic catheter, who presented with shortness of breath. He also reports having a cough. He had a fever last night. He generally feels unwell. He is not sure if it is related to his implantable loop recorder being placed yesterday. he says he hasn't felt well since breaking his hip nearly a year ago. He is confused. He is orienter to person, but disoirented to place and date. He denies abdominal pain, nausea, and vomiting. Subjective/Events-last exam He denies any complaints or concerns. He denies pain. He denies shortness of breath. Focused Exam Lactate Level 11/28/21 17:10: Lactic Acid Level 1.88 Objective Exam Vital Signs Vital Signs Date Time Temp Pulse Resp B/P (MAP) Pulse Ox O2 Delivery O2 Flow Rate FiO2 12/01/21 11:31 36.9 57 25 137/68 (91) 94 Nasal Cannula 2.00 11/28/21 22:35 32 Capillary Refill : General Appearance: No Apparent Distress, WD/WN, Chronically ill Neck: Normal Inspection, Supple Respiratory: Lungs Clear, No Respiratory Distress Cardiovascular: Regular Rate, Rhythm, No Murmur Gastrointestinal: Normal Bowel Sounds, Non Tender, Soft Extremity: Normal Inspection, No Pedal Edema Neurologic/Psychiatric: Alert, Depressed Affect Skin: Warm/Dry, Pallor Results/Procedures Lab Laboratory Tests 12/01/21 05:20 Patient resulted labs reviewed. Imaging: Reviewed Imaging Report Assessment/Plan Assessment and Plan Assess & Plan/Chief Complaint Pneumonia Urinary tract infection Suprapubic catheter SIRS+ with leukocytosis and fever CXR with infiltrates Procalcitonin elevated UA concerning for possible UTI Urine culture with Pseudomonas Continue Cefepime CKD 3a Creatinine appears to be at baseline AFib Cardiology following Continue Sotalol Continue Eliquis COPD Continue home meds DVT prophylaxis: already receiving therapeutic anticoagulation Sepsis, resolved Diagnosis/Problems Diagnosis/Problems (1) Sepsis Status: Resolved Resolution Date/Time: 12/01/21 @ 11:52 (2) PNA (pneumonia) Status: Acute (3) Pseudomonas urinary tract infection Status: Acute (4) Suprapubic catheter Status: Chronic (5) Afib Status: Chronic (6) Stage 3a chronic kidney disease Status: Chronic (7) MERVIN (acute kidney injury) Status: Resolved Resolution Date/Time: 12/01/21 @ 11:52 NIKO BROWN MD Dec 01, 2021 11:50
[2021-12-01 16:09] VITALS: BP 105/62
[2021-12-01 20:00] VITALS: BP 124/80
[2021-12-02] VITALS: BP 106/61
[2021-12-02 04:00] VITALS: BP 120/70
[2021-12-02 05:16] LABS: BASOPHILS # (AUTO) 0.1 10^3/uL (0.0-0.1); BASOPHILS % (AUTO) 0 % (0-10); EOSINOPHILS # (AUTO) 0.3 10^3/uL (0.0-0.3); EOSINOPHILS % (AUTO) 2 % (0-10); HEMATOCRIT 34 % (40-54); HEMOGLOBIN 10.8 g/dL (13.3-17.7); LYMPHOCYTES # (AUTO) 0.8 10^3/uL (1.0-4.0); LYMPHOCYTES % (AUTO) 6 % (12-44); MEAN CORPUSCULAR HEMOGLOBIN 31 pg (25-34); MEAN CORPUSCULAR HGB CONC 32 g/dL (32-36); MEAN CORPUSCULAR VOLUME 95 fL (80-99); MEAN PLATELET VOLUME 10.5 fL (9.0-12.2); MONOCYTES # (AUTO) 1.9 10^3/uL (0.0-1.0); MONOCYTES % (AUTO) 14 % (0-12); NEUTROPHILS # (AUTO) 9.6 10^3/uL (1.8-7.8); NEUTROPHILS % (AUTO) 74 % (42-75); PLATELET COUNT 244 10^3/uL (130-400)
[2021-12-02] MEDS: RT-ALBUTEROL/IPRATROPIUM 3 ML (DUONEB) VIAL INH SCH ×2 (07:10→10:03)
[2021-12-02 07:50] VITALS: BP 116/70
[2021-12-02 08:00] VITALS: BP 111/62
[2021-12-02] MEDS: APIXABAN 2.5 MG (ELIQUIS) TABLET PO SCH (08:13)
[2021-12-02] MEDS: SENNOSIDES 8.6 MG (SENOKOT) TAB PO SCH (08:13)
[2021-12-02] MEDS: DOCUSATE SODIUM 100 MG (COLACE) CAP PO SCH (08:13)
[2021-12-02] MEDS: FAMOTIDINE 20 MG (PEPCID) TABLET PO SCH (08:13)
[2021-12-02] MEDS: SOTALOL 80 MG (BETAPACE) TAB PO SCH (08:16)
[2021-12-02] MEDS: CEFEPIME INJECTION 1,000 MG in NS (IVPB) 50 ML IV SCH (08:16)
[2021-12-02] MEDS ORDERED: APIX2.5T PO ×2 (09:03)
[2021-12-02] MEDS ORDERED: CEFD300C3 PO ×2 (09:03)
[2021-12-02] MEDS ORDERED: STL80T PO ×2 (09:03)
--- NOTE | 2021-12-02 09:07 | Discharge Inst-Skilled Nursing ---
Discharge Inst-Skilled NF Chief Complaint Kaiser Pham is an 81 year old male with PMH AFib, COPD, suprapubic catheter, who presented with shortness of breath. He also reports having a cough. He had a fever last night. He generally feels unwell. He is not sure if it is related to his implantable loop recorder being placed yesterday. he says he hasn't felt well since breaking his hip nearly a year ago. He is confused. He is orienter to person, but disoirented to place and date. He denies abdominal pain, nausea, and vomiting. Consult/Follow Up/Orders Follow Up Appt.: With Dr Nichols in 1 week. Skilled NF Admit to: [facility] Certification (SNF) I certify that SNF services are required to be given on an inpatient basis because of the above named patient's need for shelter care on a continuing basis for the conditions(s) for which he/she was receiving inpatient hospital services prior to his/her transfer to the SNF. Longterm Facility Order: Nursing Services, Landscape Supervisor-Evaluate & Treat, Physical Therapy-Evaluate & Treat Oxygen Delivery Method: Nasal Cannula Oxygen Flow Rate L/min (Range): 2-3lpm Discharge Diet: Cardiac Diet Daily Activity as Tolerated: Yes Resuscitation Status: Do Not Resuscitate New & Resume Previous Orders Ricardo Clifford Dec 02, 2021 09:06 RICARDO CLIFFORD MD Dec 02, 2021 09:07
--- NOTE | 2021-12-02 09:11 | Discharge Summary ---
Diagnosis/Chief Complaint Date of Admission Nov 28, 2021 at 19:56 Date of Discharge Discharge Date: Dec 02, 2021 Admission Diagnosis Sepsis due to pneumonia and urinary tract infection Primary Care Mckinley Nichols MD Discharge Diagnosis (1) Persistent atrial fibrillation Assessment & Plan: He has a previous history of paroxysmal atrial fibrillation and now appeared to have a recurrence during this hospitalization. He had previously been on amiodarone which it appears he has not taken for 3 months. His primary main galley scullion was planning to keep him off amiodarone. Due to recurrent atrial fibrillation, I restarted apixaban. Due to age over 80 and creatinine above 1.5, he is on the renal adjusted dose. I will also started him on sotalol for rhythm management. As with the apixaban, he needs a renal adjusted dose. As above, he received his third dose of sotalol this morning and if his QTc remains acceptable, from a cardiac standpoint, he can be transferred back to the [facility] facility later today. I did explain to him that the risk of hemorrhagic side effects from Eliquis far outweigh the risk of stroke. He agreed to take the medication but does want to speak with his son about ongoing use of blood thinners. (2) Stage 3a chronic kidney disease Status: Chronic Assessment & Plan: As above, due to the chronic kidney disease, his apixaban and sotalol have been renal dose adjusted. (3) Frailty Assessment & Plan: Given his current clinical status, I would characterize him as moderately frail. Discharge Summary Discharge Physical Exam Allergies: Coded Allergies: No Known Drug Allergies (Unverified , 01/23/12) Vitals & I&Os Vital Signs Date Time Temp Pulse Resp B/P (MAP) Pulse Ox O2 Delivery O2 Flow Rate FiO2 12/02/21 08:16 80 12/02/21 08:00 15 111/62 (78) 93 Nasal Cannula 3.00 12/02/21 07:50 36.7 11/28/21 22:35 32 Hospital Course Labs (last 24 hrs) Laboratory Tests 12/02/21 04:51: White Blood Count 13.0H, Red Blood Count 3.52L, Hemoglobin 10.8L, Hematocrit 34L , Mean Corpuscular Volume 95, Mean Corpuscular Hemoglobin 31, Mean Corpuscular Hemoglobin Concent 32, Red Cell Distribution Width 12.9, Platelet Count 244, Mean Platelet Volume 10.5, Immature Granulocyte % (Auto) 3, Neutrophils (%) (Auto) 74, Lymphocytes (%) (Auto) 6L, Monocytes (%) (Auto) 14H, Eosinophils (%) (Auto) 2, Basophils (%) (Auto) 0, Neutrophils # (Auto) 9.6H, Lymphocytes # (Auto) 0.8L, Monocytes # (Auto) 1.9H, Eosinophils # (Auto) 0.3, Basophils # (Auto) 0.1, Immature Granulocyte # (Auto) 0.4H, Magnesium Level 1.8 Microbiology 11/28/21 Blood Culture - Preliminary, Resulted No growth 11/28/21 Urine Culture - Final, Complete Pseudomonas aeruginosa Patient resulted labs reviewed. Pending Labs Laboratory Tests 12/02/21 04:51: White Blood Count 13.0, Red Blood Count 3.52, Hemoglobin 10.8, Hematocrit 34, Mean Corpuscular Volume 95, Mean Corpuscular Hemoglobin 31, Mean Corpuscular Hemoglobin Concent 32, Red Cell Distribution Width 12.9, Platelet Count 244, Mean Platelet Volume 10.5, Immature Granulocyte % (Auto) 3, Neutrophils (%) (Auto) 74, Lymphocytes (%) (Auto) 6, Monocytes (%) (Auto) 14, Eosinophils (%) (Auto) 2, Basophils (%) (Auto) 0, Neutrophils # (Auto) 9.6, Lymphocytes # (Auto) 0.8, Monocytes # (Auto) 1.9, Eosinophils # (Auto) 0.3, Basophils # (Auto) 0.1, Immature Granulocyte # (Auto) 0.4, Magnesium Level 1.8 Imaging: Reviewed Imaging Report Discharge Home Medications: Active Scripts Active Cefdinir 300 Mg Capsule 300 Mg PO BID Eliquis (Apixaban) 2.5 Mg Tablet 2.5 Mg PO BID Sotalol (Sotalol HCl) 80 Mg Tablet 80 Mg PO DAILY Reported Saline Nasal [place] (Sodium Chloride) 30 Ml [place] 2 Sprays NS Q1HR PRN Albuterol Sulfate 2.5 Mg/3 Ml Vial.neb 2.5 Mg INH Q6H PRN Mucinex (Guaifenesin) 600 Mg Tab.er.12h 600 Mg PO BID Dulera 100 Mcg/5 Mcg Inhaler (Mometasone/Formoterol) 13 Gm Hfa.aer.ad 2 Puff INH BID Melatonin 3 Mg Tablet 6 Mg PO HS TAKES 2 (3MG) TABS Neurontin (Gabapentin) 300 Mg Capsule 300 Mg PO DAILY Lexapro (Escitalopram Oxalate) 10 Mg Tablet 10 Mg PO HS Vitamin B-12 (Cyanocobalamin (Vitamin B-12)) 1,000 Mcg Tablet 1,000 Mcg PO DAILY Cod Liver Oil Softgel (Vit A & D3 in Cod Liver Oil) 1 Each Capsule 2 Each PO DAILY Tramadol HCl 50 Mg Tablet 50-100 Mg PO Q6H PRN Hydrocodone-Acetamin 5-325 mg (Hydrocodone/Acetaminophen) 1 Each Tablet 1-2 Ea PO Q4H PRN Bisacodyl 10 Mg Supp.rect 10 Mg RC DAILY PRN Senna (Sennosides) 8.6 Mg Tablet 8.6 Mg PO DAILY PRN Tylenol Extra Strength (Acetaminophen) 500 Mg Tablet 1,000 Mg PO Q8H PRN Miralax (Polyethylene Glycol 3350) 17 Gm Powd.pack 17 Gm PO DAILY PRN Docusate Sodium 100 Mg Capsule 100 Mg PO DAILY Aspirin EC (Aspirin) 81 Mg Tablet.dr 81 Mg PO BID Pantoprazole Sodium 40 Mg Tablet. 40 Mg PO DAILY Vitamin D3 (Cholecalciferol (Vitamin D3)) 125 Mcg Tablet 125 Mcg PO DAILY Instructions to patient/family Please see electronic discharge instructions given to patient. RICARDO CLIFFORD MD Dec 02, 2021 09:11
--- NOTE | 2021-12-02 09:38 | Cardiology Progress Note ---
Progress Note-Cardiology Events since last exam Date Seen by Provider: Dec 02, 2021 Time Seen by Provider: 09:35 Events since last exam We are following him for atrial fibrillation. He was sitting up in a chair. He complains of some mild dyspnea. He feels like he is in a repetitive dream. He denies chest discomfort, palpitations, syncope, or ankle edema. Certain portions of this document may have been dictated utilizing voice recognition technology. Inherent to this technology, typographical and gramm atical errors may exist. As much as I am diligent to identify and correct these mistakes, some errors may remain in the document. Vitals Last set of Vitals Signs Vital Signs 11/28/21 12/02/21 12/02/21 12/02/21 22:35 07:50 08:00 08:16 Temp 36.7 Pulse 80 Resp 15 B/P (MAP) 111/62 (78) Pulse Ox 93 O2 Delivery Nasal Cannula O2 Flow Rate 3.00 FiO2 32 Labs Labs Laboratory Tests 12/02/21 04:51 Exam Vital Signs Vital Signs Date Time Temp Pulse Resp B/P (MAP) Pulse Ox O2 Delivery O2 Flow Rate FiO2 12/02/21 08:16 80 12/02/21 08:00 15 111/62 (78) 93 Nasal Cannula 3.00 12/02/21 07:50 36.7 11/28/21 22:35 32 Physical Exam General: Alert. No acute distress. Eye: No xanthelasma. HENT: Normocephalic. Neck: Jugular venous pressure does not appear elevated. Respiratory: Lungs are clear to auscultation. Respirations are non-labored. Breath sounds are equal. Symmetrical chest wall expansion. Cardiovascular: Normal rate. Regular rhythm. No murmur. No gallop. Trace bilateral pretibial edema. Gastrointestinal: Soft. Normal bowel sounds. Skin: Warm. Dry. Neurologic: Alert and oriented to person, place, time. Cranial nerves 3-11 grossly intact. Psychiatric: Cooperative. Appropriate mood & affect. Labs Laboratory Tests Test 12/02/21 04:51 Range/Units White Blood Count 13.0 H 4.3-11.0 10^3/uL Red Blood Count 3.52 L 4.30-5.52 10^6/uL Hemoglobin 10.8 L 13.3-17.7 g/dL Hematocrit 34 L 40-54 % Mean Corpuscular Volume 95 80-99 fL Mean Corpuscular Hemoglobin 31 25-34 pg Mean Corpuscular Hemoglobin Concent 32 32-36 g/dL Red Cell Distribution Width 12.9 10.0-14.5 % Platelet Count 244 130-400 10^3/uL Mean Platelet Volume 10.5 9.0-12.2 fL Immature Granulocyte % (Auto) 3 % Neutrophils (%) (Auto) 74 42-75 % Lymphocytes (%) (Auto) 6 L 12-44 % Monocytes (%) (Auto) 14 H 0-12 % Eosinophils (%) (Auto) 2 0-10 % Basophils (%) (Auto) 0 0-10 % Neutrophils # (Auto) 9.6 H 1.8-7.8 10^3/uL Lymphocytes # (Auto) 0.8 L 1.0-4.0 10^3/uL Monocytes # (Auto) 1.9 H 0.0-1.0 10^3/uL Eosinophils # (Auto) 0.3 0.0-0.3 10^3/uL Basophils # (Auto) 0.1 0.0-0.1 10^3/uL Immature Granulocyte # (Auto) 0.4 H 0.0-0.1 10^3/uL Magnesium Level 1.8 1.6-2.4 MG/DL Diagnosis/Problems Diagnosis/Problems (1) Persistent atrial fibrillation Assessment & Plan: He has a previous history of paroxysmal atrial fibrillation and now appeared to have a recurrence during this hospitalization. He had previously been on amiodarone which it appears he has not taken for 3 months. His primary logistics intern was planning to keep him off amiodarone. Due to recurrent atrial fibrillation, I restarted apixaban. Due to age over 79 and creatinine above 1.5, he is on the renal adjusted dose. I will also started him on sotalol for rhythm management. As with the apixaban, he needs a renal adjusted dose. He completed his sotalol load and the QTc remained acceptable. From a cardiac standpoint, he can be [facility]. I have placed an order to get him a follow-up with Dr. Roque in approximately 1 month. (2) Stage 3a chronic kidney disease Status: Chronic Assessment & Plan: As above, due to the chronic kidney disease, his apixaban and sotalol have been renal dose adjusted. (3) Frailty Assessment & Plan: Given his current clinical status, I would characterize him as moderately frail. DANY WILLINGHAM JR, MD Dec 02, 2021 09:38
--- NOTE | 2021-12-02 10:00 | Physical Therapy Daily Note ---
PT Daily Note-Current Subjective Patient agrees to PT. Noted increase in confusion. Patient states, "This a dream that I keep having." Mental Status Patient Orientation: Confused Attachments: Oxygen, Suprapubic Catheter Transfers SCALE: Activities may be completed with or without assistive devices. 1-Gtyqfstsou-mkhbfak completes the activity by him/herself with no assistance from a helper. 5-Set-up or Clean-up Assistance-helper sets up or cleans up; patient completes activity. [place] assists only prior to or following the activity. 4-Supervision or Touching Assistance-helper provides verbal cues and/or touching/steadying and/or contact guard assistance as patient completes activity. Assistance may be provided throughout the activity or intermittently. 3-Partial/Moderate Assistance-helper does LESS THAN HALF the effort. [place] lifts, holds or supports trunk or limbs, but provides less than half the effort. 2-Substantial/Maximal Assistance-helper does MORE THAN HALF the effort. [place] lifts or holds trunk or limbs and provides more than half the effort. 3-Ccjpaaliq-dfmdop does ALL the effort. Patient does none of the effort to complete the activity. Or, the assistance of 2 or more helpers is required for the patient to complete the activity. If activity was not attempted, code reason: 7-Patient Refused. 9-Not Applicable-not attempted and the patient did not perform the activity before the current illness, exacerbation or injury. 10-Not Attempted due to Environmental Limitations-(lack of equipment, weather restraints, etc.). 88-Not Attempted due to Medical Conditions or Safety Concerns. Lying to Sitting/Side of Bed(Q: 4 Sit to Stand (QC): 4 Chair/Aby-ue-Dagex Xfer(QC): 4 Toilet Transfer (QC): 4 Weight Bearing Right Lower Extremity: Right Full Weight Bearing Left Lower Extremity: Left Full Weight Bearing Gait Training Distance: 15' Walk 10 feet (QC): 4 Gait Assistive Device: FWW no deviation/CGA for safety Assessment Dependent assist to cleanse after incontinent BM. Patient very confused on this date. Patient up in recliner with needs met. Increase activity as tolerated by patient. PT Prison Goals Prison Goals PT Casing Running Machine Tender Goals Time Frame: Dec 07, 2021 Roll Left & Right (QC): 4 Sit to Lying (QC): 4 Lying-Sitting on Side/Bed(QC): 4 Sit to Stand (QC): 4 Chair/Ftq-zr-Stfzv Xfer(QC): 4 Toilet Transfer (QC): 4 Walk 10 feet (QC): 4 Walk 50ft with 2 Turns (QC): 4 Walk 150 ft (QC): 4 PT Plan Treatment/Plan Treatment Plan: Continue Plan of Care Treatment Plan: Bed Mobility, Education, Functional Activity Molly, Functional Strength, Gait, Safety, Therapeutic Exercise, Transfers Treatment Duration: Dec 07, 2021 Frequency: 6 times per week Estimated Hrs Per Day: .25 hour per day Patient and/or Family Agrees t: Yes Time/GCodes Time In: 820 Time Out: 836 Total Billed Treatment Time: 16 Total Billed Treatment 1 visit FA 16 min SHABBIR HOWARD PT Dec 02, 2021 10:00
== END 2021-12-02 11:21 | disposition home or self-care (01) | DRG 871 ==
LOC: EDUNIT# 17:11 → ER 17:13 → CSD 19:56
PROVIDERS: ADMIT Internal Medicine; ATTEND Internal Medicine
DX: A41.9 Sepsis, unspecified organism (principal); J96.01 Acute respiratory failure with hypoxia; J18.9 Pneumonia, unspecified organism; N17.9 Acute kidney failure, unspecified; N39.0 Urinary tract infection, site not specified; I48.19 Other persistent atrial fibrillation; J44.9 Chronic obstructive pulmonary disease, unspecified; D72.829 Elevated white blood cell count, unspecified; Z20.822 Contact with and (suspected) exposure to COVID-19; I12.9 Hypertensive chronic kidney disease with stage 1 through stage 4 chronic kidney disease, or unspecified chronic kidney disease; Z79.82 Long term (current) use of aspirin; Z79.899 Other long term (current) drug therapy; K21.9 Gastro-esophageal reflux disease without esophagitis; F03.90 Unspecified dementia, unspecified severity, without behavioral disturbance, psychotic disturbance, mood disturbance, and anxiety; Z87.891 Personal history of nicotine dependence; N18.31 Chronic kidney disease, stage 3a; B96.5 Pseudomonas (aeruginosa) (mallei) (pseudomallei) as the cause of diseases classified elsewhere
CPT/HCPCS: 36415; 71045; 80048; 80053; 80061; 80202; 81000; 83605; 83735; 83880; 84100; 84145; 84484; 85007; 85025; 85027; 85610; 85730; 86141; 87040; 87077; 87088; 87186; 87636; 93005; 94640; 94760

== ENCOUNTER 2022-01-20 22:04 | Inpatient (IN) | payer MEDICARE ==
[~2022-01-20] VITALS: Ht 188 cm; Wt 76.8 kg
[~2022-01-20 22:04] MED LIST changes: +ALBU2.5V4 INH; +APIX2.5T PO; +SODI30SP2 NS; +STL80T PO
[2022-01-20 22:25] LABS: BASOPHILS # (AUTO) 0.2 10^3/uL (0.0-0.1); BASOPHILS % (AUTO) 1 % (0-10); EOSINOPHILS % (AUTO) 0 % (0-10); HEMATOCRIT 36 % (40-54); LYMPHOCYTES % (AUTO) 3 % (12-44); MEAN CORPUSCULAR HEMOGLOBIN 31 pg (25-34); MEAN CORPUSCULAR HGB CONC 33 g/dL (32-36); MEAN CORPUSCULAR VOLUME 93 fL (80-99); MEAN PLATELET VOLUME 9.2 fL (9.0-12.2); MONOCYTES # (AUTO) 2.2 10^3/uL (0.0-1.0); MONOCYTES % (AUTO) 7 % (0-12); NEUTROPHILS # (AUTO) 27.7 10^3/uL (1.8-7.8); NEUTROPHILS % (AUTO) 88 % (42-75); PLATELET COUNT 234 10^3/uL (130-400)
[2022-01-20 22:26] LABS: WHITE BLOOD COUNT 31.4 10^3/uL (4.3-11.0)
[2022-01-20] MEDS ORDERED: methylPREDNISolone 125 MG (Solu-MEDROL) VIAL IV STA (22:34)
--- NOTE | 2022-01-20 22:34 | Diagnostic Imaging Report ---
INDICATION: Cough and congestion Portable chest 10:29 PM There is a loop recorder projecting over the left chest. There is infiltrate present at the left lung base. Right lung is clear. IMPRESSION: Left basilar infiltrate consistent with pneumonia Dictated by: Dictated on workstation # [id number]
[2022-01-20 22:36] LABS: INR 1.2 (0.8-1.4)
[2022-01-20 22:40] LABS: ALBUMIN 3.4 GM/DL (3.2-4.5); CHLORIDE 89 MMOL/L (98-107); SODIUM 128 MMOL/L (135-145)
[2022-01-20 22:41] LABS: CALCIUM 9.2 MG/DL (8.5-10.1)
[2022-01-20 22:42] LABS: GLUCOSE 128 MG/DL (70-105); TOTAL PROTEIN 7.2 GM/DL (6.4-8.2)
[2022-01-20 22:43] LABS: CARBON DIOXIDE 27 MMOL/L (21-32)
[2022-01-20 22:44] LABS: BILIRUBIN,TOTAL 0.8 MG/DL (0.1-1.0); LYMPHOCYTES % (MANUAL) 2 %; MONOCYTES % (MANUAL) 7 %; NEUTROPHILS % (MANUAL) 91 %; POLYCHROMASIA SLIGHT
[2022-01-20 22:45] LABS: ERYTHROCYTE SEDIMENTATION RATE 41 MM/HR (0-30)
[2022-01-20] MEDS ORDERED: MEROPENEM 500 MG in NS (IVPB) 100 ML IV ONE (22:45)
[2022-01-20] MEDS ORDERED: LACTATED RINGERS 1,000 ML IV ONE (22:45)
[2022-01-20] MEDS ORDERED: VANCOMYCIN INJECTION 1,000 MG in NS (IVPB) 250 ML IV ONE (22:45)
[2022-01-20] MEDS ORDERED: RT-ALBUTEROL/IPRATROPIUM 3 ML (DUONEB) VIAL INH ONE (22:45)
[2022-01-20 22:46] LABS: ALKALINE PHOSPHATASE 88 U/L (40-136); CREATININE SERUM 1.85 MG/DL (0.60-1.30); GFR ESTIMATED 36
[2022-01-20 22:47] LABS: BUN/CREATININE RATIO 13
[2022-01-20 22:48] LABS: MAGNESIUM 1.6 MG/DL (1.6-2.4)
[2022-01-20 22:49] LABS: ALANINE AMINOTRANSFERASE 11 U/L (0-55)
--- NOTE | 2022-01-20 23:09 | Tele-ICU Progress Note ---
Subjective Date Seen by a Provider: Jan 20, 2022 Time Seen by a Provider: 22:45 Subjective/Events-last exam This virtual visit was conducted using real time audio/video. Thank you for asking us to see this patient for respiratory insufficiency due to LLL pna, failed treatment at [facility]. Recent events: requiring 12-15 LPM in ER. PMH:Dementia, afib on Eliquis. DNR/DNI. SH: smoking history :former FH: Non-contributory ROS:as in HPI PE: VSS. O2 sat 90% on 12 LPM. DNR/DNI HEENT: No obvious masses, adenopathy or JVD. Chest: diminished w rhonchi L CV: Irreg. S1 S2 No murmur or added sounds. Abd: Non-tender. Bowel sounds Y. : Unremarkable. Gunderson Y. HOTEL RESERVATIONIST/psychiatric: No obvious focal findings. Extremities: No edema. Capillary refill < 3 seconds. Skin: unremarkable. Results: Elevated WCC 31.4, BUN 24, Creat 1.85, BG 128. Decreased Na 128. ABG: not done. CXR: Hyperinflated w LLL infilt.. Available chart/ vitals / labs / images reviewed. Video assessment done using teleICU camera, rest of exam as per RN. A/P: Respiratory insufficiency: Continue present management with O2, duonebs. DNR/DNI. PProbable underlying COPD. Monitor for increasing oxygenation needs. Critical Care: critically ill patient. Cont. Eliquis, Meropenem, Vanco. Discussed with ER MD Dr. Tovar, EDI DEVELOPER [facility]. Asked RN to reach out to eICU if any questions or concerns later. Time spent with patient/coordination of care with other health professionals (mins): 25 Sepsis Event Evaluation Height, Weight, BMI Height: 6'2.00" Weight: 186lbs. oz. 81.716962yt; 21.00 BMI Method: Focused Exam Lactate Level 01/20/22 22:15: Lactic Acid Level 1.45 Lactic Acid Level Laboratory Tests Test 01/20/22 22:15 Lactic Acid Level 1.45 MMOL/L (0.50-2.00) Exam Exam Patient acknowledged, consented, and participated in this virtual visit which was conducted using real time audio/video Vital Signs Date Time Temp Pulse Resp B/P (MAP) Pulse Ox O2 Delivery O2 Flow Rate FiO2 01/20/22 22:10 Nasal Cannula 6.00 01/20/22 22:05 36.4 66 22 96/53 (67) 93 Nasal Cannula 01/20/22 22:05 93 Nasal Cannula 6.00 Height & Weight Height: 6'2.00" Weight: 186lbs. oz. 81.664009zw; 21.00 BMI Method: General Appearance: Chronically ill, Moderate Distress Capillary Refill: Less Than 3 Seconds Peripheral Pulses: 1+ Dorsalis Pedis (R), 1+ Left Dors-Pedis (L) Results Lab Laboratory Tests 01/20/22 22:15 Assessment/Plan Assessment/Plan See free text. Critical Care: Critically Ill Patient WYATT LINDSEY MD Jan 20, 2022 23:09
[2022-01-20 23:44] LABS: ABG BASE EXCESS 5.5 MMOL/L (-2.5-2.5); ABG OXYGEN SATURATION 88 % (94-100); ABG PCO2 52 MMHG (35-45); ABG PH 7.38 (7.37-7.43); ABG PO2 52 MMHG (79-93); ABG TCO2 32.3 MMOL/L (21.0-31.0)
[2022-01-20 23:45] LABS: ALLENS TEST POSITIVE; INSPIRED O2 12; PATIENT TEMP 36; VENTILATOR NO
[2022-01-20] MEDS ORDERED: VANCOMYCIN INJECTION 750 MG in NS (IVPB) 250 ML IV ONE (23:45)
[2022-01-21 00:54] VITALS: BP 96/53
[2022-01-21] MEDS ORDERED: ACETAMINOPHEN 500 MG TAB (TYLENOL) PO PRN (01:00)
[2022-01-21] MEDS: VASOPRESSIN INJECTION 20 UNIT in NS (IVPB) 100 ML IV SCH ×3 (01:00→20:58)
[2022-01-21] MEDS ORDERED: ONDANSETRON 4 MG/2 ML (SDV) Z0FRAN IV PRN (01:00)
[2022-01-21] MEDS: NOREPINEPHRINE 8 MG/250 ML 250 ML IV SCH ×2 (01:00→18:19)
[2022-01-21] MEDS ORDERED: EPINEPHrine 1 MG INJECTION 4 MG in NS (IVPB) 248 ML IV SCH (01:00)
[2022-01-21] MEDS: NS IV 1000 ML 1,000 ML IV SCH ×4 (01:04→21:06)
[2022-01-21] MEDS ORDERED: RT-ALBUTEROL/IPRATROPIUM 3 ML (DUONEB) VIAL INH PRN (01:15)
[2022-01-21] MEDS: RT-ALBUTEROL/IPRATROPIUM 3 ML (DUONEB) VIAL INH SCH ×6 (01:34→22:07)
[2022-01-21 05:19] LABS: BASOPHILS # (AUTO) 0.1 10^3/uL (0.0-0.1); BASOPHILS % (AUTO) 0 % (0-10); EOSINOPHILS % (AUTO) 0 % (0-10); HEMATOCRIT 32 % (40-54); HEMOGLOBIN 10.5 g/dL (13.3-17.7); LYMPHOCYTES # (AUTO) 0.5 10^3/uL (1.0-4.0); LYMPHOCYTES % (AUTO) 2 % (12-44); MEAN CORPUSCULAR HEMOGLOBIN 31 pg (25-34); MEAN CORPUSCULAR HGB CONC 33 g/dL (32-36); MEAN CORPUSCULAR VOLUME 93 fL (80-99); MEAN PLATELET VOLUME 9.4 fL (9.0-12.2); MONOCYTES # (AUTO) 0.3 10^3/uL (0.0-1.0); MONOCYTES % (AUTO) 1 % (0-12); NEUTROPHILS # (AUTO) 22.6 10^3/uL (1.8-7.8); NEUTROPHILS % (AUTO) 96 % (42-75); PLATELET COUNT 191 10^3/uL (130-400); WHITE BLOOD COUNT 23.6 10^3/uL (4.3-11.0)
[2022-01-21 05:32] LABS: ALBUMIN 3.1 GM/DL (3.2-4.5); POTASSIUM 4.6 MMOL/L (3.6-5.0)
[2022-01-21 05:33] LABS: CALCIUM 8.8 MG/DL (8.5-10.1)
[2022-01-21 05:35] LABS: TOTAL PROTEIN 6.5 GM/DL (6.4-8.2)
[2022-01-21 05:36] LABS: BILIRUBIN,TOTAL 0.5 MG/DL (0.1-1.0)
[2022-01-21 05:38] LABS: CREATININE SERUM 1.56 MG/DL (0.60-1.30); PHOSPHORUS 2.4 MG/DL (2.3-4.7)
[2022-01-21 05:41] LABS: MAGNESIUM 1.6 MG/DL (1.6-2.4)
[2022-01-21] MEDS: POTASSIUM CL 10MEQ/50ML IVPB 50 ML IV SCH (05:51)
[2022-01-21] MEDS: KCL 20 MEQ TAB (K-DUR) PO SCH (05:51)
[2022-01-21] MEDS: MAGNESIUM 1 GM/100 ML IVPB 100 ML IV SCH ×3 (05:52→06:52)
[2022-01-21] MEDS: methylPREDNISolone 125 MG (Solu-MEDROL) VIAL IV SCH ×3 (05:56→17:15)
[2022-01-21] MEDS: MEROPENEM 500 MG/NS 100 ML IVPB IV SCH ×6 (08:23→23:42)
[2022-01-21] MEDS ORDERED: MAGN400O7 PO (09:34)
[2022-01-21] MEDS ORDERED: VENL150C98 PO (09:34)
[2022-01-21] MEDS ORDERED: SOTA80TA62 PO (09:34)
[2022-01-21] MEDS ORDERED: APIX2.5T PO (09:34)
[2022-01-21] MEDS ORDERED: DIPH25TA65 PO (09:34)
[2022-01-21] MEDS ORDERED: BISA10SU58 RC (09:34)
[2022-01-21] MEDS ORDERED: GUAI100L74 PO (09:39)
--- NOTE | 2022-01-21 10:20 | Tele-ICU Progress Note ---
Subjective Date Seen by a Provider: Jan 21, 2022 Time Seen by a Provider: 10:20 Subjective/Events-last exam (Tele-ICU Physician , Progress Note ) Available chart/ vitals / labs / Images reviewed Video assessment done using teleICU camera, rest of exam as per RN Discussed with RN , EXAM PER RN Events overnight : Afebrile FiO2 - 10 l o2 --> VT now I/O = Drips: NS 150 Pressors: , hemodynamically stable Consultants: Hospital course: (01/21) 81/M admitted for shortness of breath LLL pneumonia A/P Acute resp failure with PNA - worsenign today from 10 L to VT - will check cxr , bnp and abg - might need NIPPV - cont abx - readress volume status - cont steroids - abilio dose - ? TO DECREASE SOON Sepsis - received IVF boluses , on NS 150 now , not on pressors PNA LLL - cont abx , follow cx MERVIN/ CKD -- creatining improving PAF - rate controlled -eliquis COPD - nebs , steroids anemia - stable Accucheck - on high dose steroids DNI/DNR Lines : periph (Central Line Necessity Reviewed) Gunderson: + OG: Nutrition: po Analgesia: Anxiety/ delirium na VTE Prophylaxis: eliquis Stress Ulcer Prophylaxis: Plans in collaboration with bedside consultants and IM MDs. Discussed with RN to reach out if any questions or concerns A total of 34 minutes of critical care time was devoted to this patient today, required to treat and/or prevent further deterioration of critical care condition ( as above) . Sepsis Event Evaluation Height, Weight, BMI Height: 6'2.00" Weight: 186lbs. oz. 81.067697eh; 24.04 BMI Method: Focused Exam Lactate Level 01/20/22 22:15: Lactic Acid Level 1.45 Exam Exam Patient acknowledged, consented, and participated in this virtual visit which was conducted using real time audio/video Vital Signs Date Time Temp Pulse Resp B/P (MAP) Pulse Ox O2 Delivery O2 Flow Rate FiO2 01/21/22 10:00 52 24 118/64 96 High Flow N/C 10.00 01/21/22 09:00 63 26 101/58 96 High Flow N/C 10.00 01/21/22 08:00 58 7 120/62 99 High Flow N/C 10.00 01/21/22 08:00 36.1 01/21/22 07:07 94 High Flow N/C 10.00 01/21/22 07:00 59 01/21/22 07:00 56 17 140/69 94 High Flow N/C 10.00 01/21/22 06:00 60 16 116/55 96 High Flow N/C 10.00 01/21/22 05:00 60 15 115/93 93 High Flow N/C 10.00 01/21/22 04:00 57 24 122/51 95 High Flow N/C 10.00 01/21/22 03:53 36.0 01/21/22 03:17 96 High Flow N/C 10.00 01/21/22 03:00 61 16 97/52 93 High Flow N/C 10.00 01/21/22 02:07 96 High Flow N/C 10.00 01/21/22 02:00 61 34 107/53 95 High Flow N/C 10.00 01/21/22 01:45 60 16 101/56 98 High Flow N/C 10.00 01/21/22 01:34 96 High Flow N/C 10.00 01/21/22 01:30 56 29 111/51 93 High Flow N/C 10.00 01/21/22 01:15 61 25 105/52 97 High Flow N/C 10.00 01/21/22 01:00 60 01/21/22 01:00 60 15 112/54 97 High Flow N/C 10.00 01/21/22 01:00 64 01/21/22 01:00 64 01/21/22 00:54 36.4 66 93 44 01/21/22 00:45 62 12 108/54 100 High Flow N/C 10.00 01/21/22 00:43 36.1 61 22 116/51 98 High Flow N/C 10.00 01/21/22 00:32 96 High Flow N/C 10.00 01/21/22 00:30 61 25 104/61 94 OxyMask 12.00 01/20/22 23:35 90 OxyMask 12.00 01/20/22 22:10 Nasal Cannula 6.00 01/20/22 22:05 36.4 66 22 96/53 (67) 93 Nasal Cannula 01/20/22 22:05 93 Nasal Cannula 6.00 I & O 01/21/22 07:00 Intake Total 3000 ml Output Total 700 ml Balance 2300 ml Height & Weight Height: 6'2.00" Weight: 186lbs. oz. 81.605737qd; 24.04 BMI Method: General Appearance: Chronically ill, Moderate Distress Capillary Refill: Less Than 3 Seconds Peripheral Pulses: 1+ Dorsalis Pedis (R), 1+ Left Dors-Pedis (L) Results Lab Laboratory Tests 01/20/22 22:15 01/21/22 05:00 Assessment/Plan Assessment/Plan ` JOSÉ MIGUEL ZAMORANO MD Jan 21, 2022 10:20
--- NOTE | 2022-01-21 11:26 | Diagnostic Imaging Report ---
INDICATION: Respiratory failure. COMPARISON: Exam compared with study of 01/20/2022. FINDINGS: Left lung infiltrate, greatest in the lower lobe, is not convincingly changed. Underlying COPD, chronic. Biapical density is stable, likely some scarring at that site. IMPRESSION: No real change in likely COPD and left lower lobe pneumonia. Dictated by: Dictated on workstation # [id number]
[2022-01-21 11:34] LABS: ABG BASE EXCESS 0.8 MMOL/L (-2.5-2.5); ABG OXYGEN SATURATION 96 % (94-100); ABG PCO2 49 MMHG (35-45); ABG PO2 81 MMHG (79-93); ABG TCO2 27.4 MMOL/L (21.0-31.0)
[2022-01-21 11:35] LABS: ABG PH 7.34 (7.37-7.43); ALLENS TEST POSITIVE; INSPIRED O2 20 L AT 40%; PATIENT TEMP 36.8; VENTILATOR NO
[2022-01-21] MEDS: PANTOPRAZOLE 40 MG (PROTONIX) VIAL IV SCH (12:10)
[2022-01-21 20:25] LABS: BILIRUBIN,URINE NEGATIVE (NEGATIVE); CLARITY,URINE CLEAR; COLOR,URINE YELLOW; GLUCOSE, URINE (UA) NEGATIVE (NEGATIVE); KETONES,URINE NEGATIVE (NEGATIVE); LEUKOCYTE ESTERASE ,URINE 2+ (NEGATIVE); NITRITE,URINE POSITIVE (NEGATIVE); PH,URINE 5.5 (5-9); PROTEIN,URINE NEGATIVE (NEGATIVE)
[2022-01-21 20:36] LABS: BACTERIA,URINE FEW /HPF
[2022-01-21] MEDS ORDERED: inSUlin ASPART (NovoLOG) 1 UNIT/0.01 ML (CHARGE PER UNIT) ONE (21:00)
[2022-01-21] MEDS: inSUlin ASPART (NovoLOG) 1 UNIT/0.01 ML (CHARGE PER UNIT) SC SCH (21:07)
--- NOTE | 2022-01-21 22:19 | History & Physical-Hospitalist ---
History of Present Illness HPI/Chief Complaint Kaiser Pham is an 81 year old male with PMH AFib, COPD, suprapubic catheter, who presented with shortness of breath. He denies cough. He denies fever. He is feeling better upon my exam. He denies chest pain. He denies abdominal pain, nausea, vomiting, and diarrhea. Source: patient Exam Limitations: no limitations Date Seen 01/21/22 Time Seen by a Provider: 09:40 Attending Physician Mckinley Nichols MD PCP Admitting Physician: Poornima Hoang DO Attending Physician: Niko Brown MD Referring Physician Date of Admission Jan 20, 2022 at 22:40 Home Medications & Allergies Home Medications Reviewed patient Home Medication Reconciliation performed by pharmacy medication reconciliations forestry aid technician and/or nursing. Patients Allergies have been reviewed. Allergies Allergies Coded Allergies No Known Drug Allergies (Unverified01/23/12) Past Tqfrpvj-Fltimx-Zvpxns Hx Patient Social History Tobacco Use?: No Use of E-Cig and/or Vaping dev: No Substance use?: No Alcohol Use?: No Pt feels they are or have been: No Immunizations Up To Date First/Initial COVID19 Vaccinat: 2020 Second COVID19 Vaccination Rufino: 2020 Tetanus Booster (TDap): Unknown Hepatitis A: No Hepatitis B: No Current Status Advance Directives: Yes Advance Directive Location: Copy from prev record Communicates: Verbally Primary Language: [place] Preferred Spoken Language: [place] Is interpretation needed?: No Sensory deficits: Vision impairment, Hearing impairment Implanted or Applied Medical D: Orthopedic hardware Past Medical History Surgeries: Orthopedic COPD Currently Using CPAP: No Currently Using BIPAP: No Atrial Fibrillation, Hypertension Renal Failure Blood Disorders: No Family Medical History No Pertinent Family Hx Review of Systems Constitutional: no symptoms reported EENTM: no symptoms reported Respiratory: short of breath Cardiovascular: no symptoms reported Gastrointestinal: no symptoms reported Genitourinary: no symptoms reported Musculoskeletal: no symptoms reported Skin: no symptoms reported Psychiatric/Neurological: No Symptoms Reported Physical Exam Physical Exam Vital Signs Vital Signs - First Documented 01/20/22 01/21/22 22:05 00:54 Temp 36.4 Pulse 66 Resp 22 B/P (MAP) 96/53 (67) Pulse Ox 93 O2 Delivery Nasal Cannula O2 Flow Rate 6.00 FiO2 44 Capillary Refill : Less Than 3 Seconds Height, Weight, BMI Height: 6'2.00" Weight: 186lbs. oz. 81.401799jn; 24.04 BMI Method: General Appearance: No Apparent Distress, Chronically ill HEENT: PERRL/EOMI, Pharynx Normal Neck: Normal Inspection, Supple Respiratory: No Respiratory Distress, Decreased Breath Sounds Cardiovascular: Regular Rate, Rhythm, No Murmur Gastrointestinal: Normal Bowel Sounds, Soft Extremity: Normal Inspection, No Pedal Edema Neurologic/Psychiatric: Alert, Normal Mood/Affect, Disoriented Skin: Warm/Dry, Pallor Results Results/Procedures Labs Laboratory Tests 01/20/22 22:15 01/21/22 05:00 Patient resulted labs reviewed. Imaging: Reviewed Imaging Report Assessment/Plan Admission Diagnosis Sepsis due to pneumonia Admission Status: Inpatient Order (span 2 midnights) Reason for Inpatient Admission: IV antibiotics Respiratory failure Assessment and Plan Sepsis due to pneumonia Acute respiratory failure due to hypoxia MERVIN on CKD Chest xray consistent with pneumonia IV Vancomycin and Meropenem IV fluids Requiring Vapotherm TeleICU consulted AFib COPD Dementia Continue home meds Critical Care Critically Ill Patient Diagnosis/Problems Diagnosis/Problems (1) Sepsis Status: Acute (2) PNA (pneumonia) Status: Acute (3) Acute respiratory failure with hypoxia Status: Acute (4) Acute on chronic kidney failure Status: Acute NIKO BROWN MD Jan 21, 2022 22:18
[2022-01-21] MEDS ORDERED: guaiFENesin SYRUP 100 MG/5 ML 10 ML (ROBITUSSIN SF) PO PRN (22:30)
[2022-01-22] MEDS: VANCOMYCIN 1 GM/NS 250 ML IVPB IV SCH ×2 (02:04)
[2022-01-22] MEDS: RT-ALBUTEROL/IPRATROPIUM 3 ML (DUONEB) VIAL INH SCH ×6 (02:35→22:22)
[2022-01-22 04:50] LABS: BASOPHILS # (AUTO) 0.1 10^3/uL (0.0-0.1); BASOPHILS % (AUTO) 0 % (0-10); EOSINOPHILS % (AUTO) 0 % (0-10); HEMATOCRIT 32 % (40-54); HEMOGLOBIN 10.3 g/dL (13.3-17.7); LYMPHOCYTES # (AUTO) 0.8 10^3/uL (1.0-4.0); LYMPHOCYTES % (AUTO) 3 % (12-44); MEAN CORPUSCULAR HEMOGLOBIN 30 pg (25-34); MEAN CORPUSCULAR HGB CONC 33 g/dL (32-36); MEAN CORPUSCULAR VOLUME 92 fL (80-99); MEAN PLATELET VOLUME 9.6 fL (9.0-12.2); MONOCYTES # (AUTO) 0.5 10^3/uL (0.0-1.0); MONOCYTES % (AUTO) 2 % (0-12); NEUTROPHILS # (AUTO) 26.1 10^3/uL (1.8-7.8); NEUTROPHILS % (AUTO) 94 % (42-75); PLATELET COUNT 195 10^3/uL (130-400); WHITE BLOOD COUNT 27.7 10^3/uL (4.3-11.0)
[2022-01-22 04:57] LABS: ALBUMIN 3.2 GM/DL (3.2-4.5); POTASSIUM 4.1 MMOL/L (3.6-5.0)
[2022-01-22 04:58] LABS: CALCIUM 8.7 MG/DL (8.5-10.1)
[2022-01-22 04:59] LABS: TOTAL PROTEIN 6.7 GM/DL (6.4-8.2)
[2022-01-22 05:01] LABS: BILIRUBIN,TOTAL 0.3 MG/DL (0.1-1.0)
[2022-01-22 05:02] LABS: PHOSPHORUS 2.1 MG/DL (2.3-4.7)
[2022-01-22 05:03] LABS: CREATININE SERUM 1.26 MG/DL (0.60-1.30)
[2022-01-22 05:06] LABS: MAGNESIUM 1.9 MG/DL (1.6-2.4)
[2022-01-22] MEDS: KCL 20 MEQ TAB (K-DUR) PO SCH (05:15)
[2022-01-22] MEDS: POTASSIUM CL 10MEQ/50ML IVPB 50 ML IV SCH (05:15)
[2022-01-22] MEDS: MAGNESIUM 1 GM/100 ML IVPB 100 ML IV SCH (05:15)
[2022-01-22] MEDS: inSUlin ASPART (NovoLOG) 1 UNIT/0.01 ML (CHARGE PER UNIT) SC SCH ×4 (05:16→21:00)
[2022-01-22] MEDS: VENlafaxine XR 75 MG (EFFEXOR XR) CAP PO SCH (07:24)
[2022-01-22] MEDS: GABAPENTIN 300 MG (NEURONTIN) CAP PO SCH (08:29)
[2022-01-22] MEDS: guaiFENesin (MUCINEX) 600 MG TAB PO SCH ×2 (08:29→20:50)
[2022-01-22] MEDS: ASPIRIN E.C. 81 MG (ECOTRIN) TAB PO SCH ×2 (08:29→20:50)
[2022-01-22] MEDS: PANTOPRAZOLE 40 MG (PROTONIX) TAB PO SCH (08:29)
[2022-01-22] MEDS: DOCUSATE SODIUM 100 MG (COLACE) CAP PO SCH (08:30)
[2022-01-22] MEDS: APIXABAN 2.5 MG (ELIQUIS) TABLET PO SCH ×2 (08:30→20:50)
[2022-01-22] MEDS: PANTOPRAZOLE 40 MG (PROTONIX) VIAL IV SCH (08:33)
[2022-01-22] MEDS: MEROPENEM 500 MG/NS 100 ML IVPB IV SCH ×6 (08:36→23:01)
[2022-01-22] MEDS: SOTALOL 80 MG (BETAPACE) TAB PO SCH ×3 (08:40→20:51)
[2022-01-22] MEDS ORDERED: SOTALOL 80 MG (BETAPACE) TAB PO NR (08:45)
[2022-01-22] MEDS ORDERED: SOTALOL 80 MG (BETAPACE) TAB PO SCH (09:00)
--- NOTE | 2022-01-22 09:01 | Consultation-Cardiology ---
HPI-Cardiology Cardiology Consultation Date of Consultation 01/22/22 Date of Admission Time Seen by Provider: 08:55 Indication: Atrial fibrillation HPI 81 years old gentleman with history of paroxysmal atrial fibrillation, COPD and suprapubic catheter. He was admitted for pneumonia, he reported shortness of breath and fever at the group home. Denied any cough. During his hospitalization he went to atrial fibrillation with rapid ventricular response. He denied any chest pain. No palpitation. No syncope or near syncopal episodes. No claudication. Home Medications & Allergies Allergies: Coded Allergies: No Known Drug Allergies (Unverified , 01/23/12) Home Medication List Reviewed: Yes [id number] Hx Patient Social History Marital Status: Employed/Student: retired [employer] Smoke Exposure: No Recent Hopitalizations: Yes Have you traveled recently?: No Alcohol Use?: No Past Medical History Discussed below Family Medical History Significant Family History: No Pertinent Family Hx Family Medical Hx Noncontributory Review of Systems-General Review of Systems Constitutional: no symptoms reported, see HPI, malaise, weakness EENTM: see HPI, no symptoms reported Respiratory: see HPI; No cough; dyspnea on exertion; No hemoptysis, No orthopnea, No phlegm; short of breath; No stridor, No wheezing, No other Cardiovascular: see HPI; No chest pain, No edema, No Hx of Intervention, No palpitations, No syncope, No vascular heart diseas, No other Gastrointestinal: no symptoms reported Genitourinary: no symptoms reported, see HPI Musculoskeletal: no symptoms reported, see HPI, joint pain Skin: no symptoms reported, see HPI Psychiatric/Neurological: No Symptoms Reported, See HPI Reviewed Test Results Reviewed Test Results Lab Laboratory Tests Test 01/21/22 11:25 01/21/22 15:22 01/21/22 20:15 01/21/22 20:53 Range/Units Blood Gas Puncture Site RIGHT RADIAL Blood Gas Patient Temperature 36.8 Arterial Blood pH 7.34 *L 7.37-7.43 Arterial Blood Partial Pressure CO2 49 H 35-45 MMHG Arterial Blood Partial Pressure O2 81 79-93 MMHG Arterial Blood HCO3 26 23-27 MMOL/L Arterial Blood Total CO2 27.4 21.0-31.0 MMOL/L Arterial Blood Oxygen Saturation 96 94-100 % Arterial Blood Base Excess 0.8 -2.5-2.5 MMOL/L Chris Test POSITIVE Blood Gas Ventilator Setting NO Blood Gas Inspired Oxygen 20 L AT 40% Glucometer 178 H 228 H 70-110 MG/DL Urine Color YELLOW Urine Clarity CLEAR Urine pH 5.5 5-9 Urine Specific [place] 1.010 L 1.016-1.022 Urine Protein NEGATIVE NEGATIVE Urine Glucose (UA) NEGATIVE NEGATIVE Urine Ketones NEGATIVE NEGATIVE Urine Nitrite POSITIVE H NEGATIVE Urine Bilirubin NEGATIVE NEGATIVE Urine Urobilinogen 0.2 < = 1.0 MG/DL Urine Leukocyte Esterase 2+ H NEGATIVE Urine RBC (Auto) 1+ H NEGATIVE Urine RBC NONE /HPF Urine WBC 10-25 H /HPF Urine Squamous Epithelial Cells NONE /HPF Urine Renal Epithelial Cells NONE /HPF Urine Crystals NONE /LPF Urine Bacteria FEW H /HPF Urine Casts NONE /LPF Urine Mucus NEGATIVE /LPF Urine Culture Indicated YES Test 01/22/22 04:33 Range/Units White Blood Count 27.7 H 4.3-11.0 10^3/uL Red Blood Count 3.43 L 4.30-5.52 10^6/uL Hemoglobin 10.3 L 13.3-17.7 g/dL Hematocrit 32 L 40-54 % Mean Corpuscular Volume 92 80-99 fL Mean Corpuscular Hemoglobin 30 25-34 pg Mean Corpuscular Hemoglobin Concent 33 32-36 g/dL Red Cell Distribution Width 12.8 10.0-14.5 % Platelet Count 195 130-400 10^3/uL Mean Platelet Volume 9.6 9.0-12.2 fL Immature Granulocyte % (Auto) 1 % Neutrophils (%) (Auto) 94 H 42-75 % Lymphocytes (%) (Auto) 3 L 12-44 % Monocytes (%) (Auto) 2 0-12 % Eosinophils (%) (Auto) 0 0-10 % Basophils (%) (Auto) 0 0-10 % Neutrophils # (Auto) 26.1 H 1.8-7.8 10^3/uL Lymphocytes # (Auto) 0.8 L 1.0-4.0 10^3/uL Monocytes # (Auto) 0.5 0.0-1.0 10^3/uL Eosinophils # (Auto) 0.0 0.0-0.3 10^3/uL Basophils # (Auto) 0.1 0.0-0.1 10^3/uL Immature Granulocyte # (Auto) 0.2 H 0.0-0.1 10^3/uL Sodium Level 135 135-145 MMOL/L Potassium Level 4.1 3.6-5.0 MMOL/L Chloride Level 101 98-107 MMOL/L Carbon Dioxide Level 23 21-32 MMOL/L Anion Gap 11 5-14 MMOL/L Blood Urea Nitrogen 24 H 7-18 MG/DL Creatinine 1.26 0.60-1.30 MG/DL Estimat Glomerular Filtration Rate 57 BUN/Creatinine Ratio 19 Glucose Level 141 H 70-105 MG/DL Calcium Level 8.7 8.5-10.1 MG/DL Corrected Calcium 9.3 8.5-10.1 MG/DL Phosphorus Level 2.1 L 2.3-4.7 MG/DL Magnesium Level 1.9 1.6-2.4 MG/DL Total Bilirubin 0.3 0.1-1.0 MG/DL Aspartate Amino Transf (AST/SGOT) 10 5-34 U/L Alanine Aminotransferase (ALT/SGPT) 10 0-55 U/L Alkaline Phosphatase 72 40-136 U/L Total Protein 6.7 6.4-8.2 GM/DL Albumin 3.2 3.2-4.5 GM/DL Physical Exam Physical Exam Vital Signs Vital Signs - First Documented 01/20/22 01/21/22 22:05 00:54 Temp 36.4 Pulse 66 Resp 22 B/P (MAP) 96/53 (67) Pulse Ox 93 O2 Delivery Nasal Cannula O2 Flow Rate 6.00 FiO2 44 Capillary Refill : Less Than 3 Seconds Height, Weight, BMI Height: 6'2.00" Weight: 186lbs. oz. 81.943212py; 24.50 BMI Method: General Appearance: No Apparent Distress, Chronically ill HEENT: PERRL/EOMI, Pharynx Normal Neck: Normal Inspection, Supple Respiratory: No Respiratory Distress, Decreased Breath Sounds Cardiovascular: No Murmur, Systolic Murmur, Irregularly Irregular Gastrointestinal: Normal Bowel Sounds, Soft Extremity: Normal Inspection, No Pedal Edema Neurologic/Psychiatric: Alert, Normal Mood/Affect, Disoriented Skin: Warm/Dry, Pallor A/P-Cardiology Admission Diagnosis Pneumonia Sepsis Paroxysmal atrial fibrillation Hypertension Assessment/Plan Pneumonia, admitted to ICU, receiving antibiotics, managed by primary care physician Sepsis, improving. Continue to monitor closely. Acute exacerbation of COPD, history of oxygen dependence. Currently requiring more oxygen, managed by medical team Paroxysmal atrial fibrillation, had 2 episodes of atrial fibrillation in January 2021, admitted in November 2021 with atrial fibrillation. Failed amiodarone treatment, treated with sotalol. Currently in atrial fibrillation, I am escalating the sotalol dose to 120 mg twice daily and evaluate tolerance and response Monitor EKG closely. Evaluate 2D echo [id number] score of 2, yearly risk of stroke without oral anticoagulation is 2.2%. Maintained on aspirin and Eliquis 2.5 mg twice daily History of labile hypotension, episode of borderline hypotension, currently blood pressure is stable. Asymptomatic. Continue to monitor History of left hip fracture, underwent surgical repair with Dr. Morrison on February 01, 2021 then repeat x-ray showed possible migration, referred to Dr. Hall, had to have redo surgery with different hardware and recovering better, using a walker. Reporting improvement. History of renal insufficiency, continue to monitor renal function 2D echo was done on February 04, 2021 showing normal LV size, EF 55 to 65%, PA pressure 20 to 25 mmHg, plan to repeat 2D echo Lexiscan stress test was done in November 2021 showing no significant ischemia or infarction, ejection fraction 65% JENNIFER RIVER MD Jan 22, 2022 09:01
[2022-01-22] MEDS ORDERED: SOTALOL 80 MG (BETAPACE) TAB PO ONE (09:15)
--- NOTE | 2022-01-22 09:17 | Tele-ICU Progress Note ---
Subjective Date Seen by a Provider: Jan 22, 2022 Time Seen by a Provider: 08:20 Subjective/Events-last exam This virtual visit was conducted using real time audio/video. Thank you for asking us to see this patient for respiratory insufficiency due to AECOPD, LLL pna, failed treatment at [facility]. PMH:Dementia, afib on Eliquis. DNR/DNI. PE: VSS. O2 sat 96%% on 2 LPM. DNR/DNI HEENT: No obvious masses, adenopathy or JVD. Chest: diminished, coarse. CV: Irreg. S1 S2 No murmur or added sounds. Abd: Non-tender. Bowel sounds Y. : Unremarkable. Gunderson Y. [employer]/psychiatric: No obvious focal findings. Extremities: No edema. Capillary refill < 3 seconds. Skin: unremarkable. Results: Elevated WCC 27.7, BUN 24, Creat 1.26, BG 141. . AB.34/49/81 on 40%. CXR: Hyperinflated w LLL infilt.. Available chart/ vitals / labs / images reviewed. Video assessment done using teleICU camera, rest of exam as per RN. A/P: Respiratory insufficiency: Continue present management with O2, duonebs. DNR/DNI. Probable underlying COPD. Monitor for increasing oxygenation needs. Critical Care: critically ill patient. Cont. Eliquis, Meropenem, Vanco., SSI, PPI ASA. replace PO4. Discussed with HUMAN RESOURCE ASSISTANT Rosana. Asked RN to reach out to eICU if any questions or concerns later. Time spent with patient/coordination of care with other health professionals (mins): 20 Sepsis Event Evaluation Height, Weight, BMI Height: 6'2.00" Weight: 186lbs. oz. 81.235308kd; 24.50 BMI Method: Focused Exam Lactate Level 01/20/22 22:15: Lactic Acid Level 1.45 Exam Exam Patient acknowledged, consented, and participated in this virtual visit which was conducted using real time audio/video Vital Signs Date Time Temp Pulse Resp B/P (MAP) Pulse Ox O2 Delivery O2 Flow Rate FiO2 01/22/22 07:00 113 33 134/95 97 High Flow N/C 2.00 01/22/22 07:00 106 01/22/22 07:00 36.8 01/22/22 06:50 120 01/22/22 06:00 71 34 133/63 96 High Flow N/C 2.00 01/22/22 05:00 58 21 142/58 96 High Flow N/C 2.00 01/22/22 04:00 60 19 135/72 98 High Flow N/C 2.00 01/22/22 03:53 36.2 01/22/22 03:20 98 High Flow N/C 3.00 01/22/22 03:00 59 28 126/60 96 High Flow N/C 2.00 01/22/22 02:35 96 High Flow N/C 3.00 01/22/22 02:00 64 28 129/61 98 High Flow N/C 2.00 01/22/22 01:00 57 14 137/65 98 High Flow N/C 2.00 01/22/22 01:00 57 01/22/22 00:04 36.4 01/22/22 00:00 68 21 128/59 97 High Flow N/C 2.00 01/21/22 23:45 97 High Flow N/C 3.00 01/21/22 23:45 High Flow N/C 2.00 01/21/22 23:00 61 22 125/56 99 High Flow N/C 3.00 01/21/22 22:27 High Flow N/C 3.00 01/21/22 22:10 65 32 99 Nasal Cannula 5.00 01/21/22 22:07 99 High Flow N/C 5.00 01/21/22 22:00 63 26 117/63 94 Vapotherm 15.00 25.00 01/21/22 21:00 71 22 133/80 94 Vapotherm 15.00 25.00 01/21/22 21:00 65 20 133/80 94 Vapotherm 15.00 25.00 01/21/22 20:17 65 01/21/22 20:00 67 28 105/68 96 Vapotherm 25.00 01/21/22 19:15 Vapotherm 15.00 25.00 01/21/22 19:15 95 Vapotherm 15.00 25 01/21/22 19:00 63 01/21/22 19:00 36.3 62 22 130/45 97 Vapotherm 20.00 30.00 01/21/22 18:26 95 Vapotherm 20.00 30 01/21/22 18:19 73 125/68 01/21/22 18:00 61 20 124/63 95 Vapotherm 20.00 30.00 01/21/22 17:00 73 21 125/68 93 Vapotherm 20.00 30.00 01/21/22 16:00 96 Vapotherm 20.00 30 01/21/22 16:00 61 21 146/60 98 Vapotherm 20.00 30.00 01/21/22 15:55 36.2 01/21/22 15:00 61 22 142/64 96 Vapotherm 20.00 30.00 01/21/22 14:14 97 Vapotherm 20.00 40 01/21/22 14:00 56 16 133/84 97 Vapotherm 20.00 30.00 01/21/22 13:00 57 23 130/66 96 Vapotherm 20.00 40.00 01/21/22 13:00 58 01/21/22 12:07 49 155/71 01/21/22 12:00 97 Vapotherm 20.00 40 01/21/22 12:00 64 31 135/61 99 High Flow N/C 10.00 01/21/22 11:00 49 19 155/71 96 High Flow N/C 10.00 01/21/22 10:19 96 Vapotherm 20.00 40 01/21/22 10:00 52 24 118/64 96 High Flow N/C 10.00 I & O 01/22/22 07:00 Intake Total 3000 ml Output Total 3025 ml Balance -25 ml Height & Weight Height: 6'2.00" Weight: 186lbs. oz. 81.154907hs; 24.50 BMI Method: General Appearance: No Apparent Distress, Chronically ill HEENT: PERRL/EOMI, Pharynx Normal Neck: Normal Inspection, Supple Respiratory: No Respiratory Distress, Decreased Breath Sounds Cardiovascular: No Murmur, Systolic Murmur, Irregularly Irregular Capillary Refill: Less Than 3 Seconds Peripheral Pulses: 1+ Dorsalis Pedis (R), 1+ Left Dors-Pedis (L) Extremity: Normal Inspection, No Pedal Edema Neurologic/Psychiatric: Alert, Normal Mood/Affect, Disoriented Skin: Warm/Dry, Pallor Results Lab Laboratory Tests 01/20/22 22:15 01/21/22 05:00 01/22/22 04:33 Assessment/Plan Assessment/Plan See free text. Critical Care: Critically Ill Patient WYATT LINDSEY MD Jan 22, 2022 09:17
[2022-01-22] MEDS: VASOPRESSIN INJECTION 20 UNIT in NS (IVPB) 100 ML IV SCH ×2 (09:45→22:45)
[2022-01-22] MEDS: RT--FLUTICASONE/SALMETEROL 113-14 (AIRDUO RespiCLICK) IH SCH ×2 (10:41→18:49)
[2022-01-22] MEDS: NOREPINEPHRINE 8 MG/250 ML 250 ML IV SCH (11:42)
[2022-01-22] MEDS ORDERED: NS W/KCL 20 MEQ/L 1,000 ML IV ONE (15:17)
--- NOTE | 2022-01-22 16:16 | Progress Note - Hospitalist ---
Subjective HPI/CC On Admission Date Seen by Provider: Jan 22, 2022 Time Seen by Provider: 09:15 Kaiser Pham is an 81 year old male with PMH AFib, COPD, suprapubic catheter, who presented with shortness of breath. He denies cough. He denies fever. He is feeling better upon my exam. He denies chest pain. He denies abdominal pain, n ausea, vomiting, and diarrhea. Subjective/Events-last exam He is more confused this morning. He is agitated. He denies shortness of breath. He denies pain. He wants to go home. Focused Exam Lactate Level 01/20/22 22:15: Lactic Acid Level 1.45 Objective Exam Vital Signs Vital Signs Date Time Temp Pulse Resp B/P (MAP) Pulse Ox O2 Delivery O2 Flow Rate FiO2 01/22/22 15:43 36.0 01/22/22 15:08 98 High Flow N/C 2.00 01/22/22 15:00 93 25 132/74 01/21/22 19:15 25 Capillary Refill : Less Than 3 Seconds General Appearance: No Apparent Distress, Anxious Respiratory: Lungs Clear, No Respiratory Distress Cardiovascular: Irregularly Irregular, Tachycardia Gastrointestinal: Normal Bowel Sounds, Non Tender, Soft Extremity: Normal Inspection, No Pedal Edema Neurologic/Psychiatric: Alert, Disoriented Skin: Normal Color, Warm/Dry Results/Procedures Lab Laboratory Tests 01/22/22 04:33 Patient resulted labs reviewed. Imaging: Reviewed Imaging Report Assessment/Plan Assessment and Plan Assess & Plan/Chief Complaint Sepsis due to pneumonia Acute respiratory failure due to hypoxia MERVIN on CKD Chest xray consistent with pneumonia Continue Vancomycin and Meropenem Continue IV fluids Oxygen requirements improving TeleICU following AFib with RVR IV Cardizem Continue Eliquis Cardiology consulted COPD Dementia Continue home meds Critical Care Critically Ill Patient Diagnosis/Problems Diagnosis/Problems (1) Sepsis Status: Acute (2) PNA (pneumonia) Status: Acute (3) Acute respiratory failure with hypoxia Status: Acute (4) Acute on chronic kidney failure Status: Acute (5) Atrial fibrillation with RVR Status: Acute NIKO BROWN MD Jan 22, 2022 16:15
--- NOTE | 2022-01-22 18:26 | ED Respiratory ---
General Chief Complaint: Respiratory Problems Stated Complaint: SEVERE SEPSIS;ACUTE RESP FAILURE;PNEUMONIA- Nursing Triage Note: PT TO ED FROM [facility] BY EMS WITH C/O RESPIRATORY DISTRESS, LETHARGY, WEAKNESS. EMS REPORTS PT WEARS 2 L NC BASELINE, AND WAS 85% ON 5 L NC. REPORTS PT FINISHED CEFDINIR FOR LOWER RESPIRATORY INFECTION YESTERDAY. EMS ALSO REPORTS PT HAS HAD DECREASED APPETITE. Source: patient (PT IS SOMEWHAT LIMITED HISTORIAN, BUT ABLE TO ANSWER BASIC QUESTIONS APPROPRIATELY ), old records History of Present Illness Date Seen by Provider: Jan 20, 2022 Time Seen by Provider: 22:05 Initial Comments PT ARRIVES VIA EMS FROM [facility] PT RECENTLY TREATED FOR PNEUMONIA WITH CEFDINIR--FINISHED MEDICATION YESTERDAY PT NORMALLY WEARS O2 AT 2-3 L/NC CONTINOUSLY. PT HAS HAD LOW O2 SATS INTO THE 80'S TONIGHT, WITH INCREASED SHORTNESS OF BREATH EMS REPORT THAT O2 SAT WAS 85% ON 5L/NC WHEN THEY ARRIVED AT [facility], THEY PLACED PT ON 6L/NC AND O2 SAT UP TO 94% RAPID COVID TEST WAS NEGATIVE AT [facility], JUST PRIOR TO ARRIVAL PT HAS REPORTEDLY HAD INCREASED WEAKNESS / LETHARGY AND DECREASED APPETITE TODAY PT HAS HISTORY OF COPD, ATRIAL FIBRILLATION, CHRONIC RENAL DYSFUNCTION, DEMENTIA PT IS DNR/DNI ADMITTED 11/28/21-12/02/21 FOR RESPIRATORY FAILURE AND ATRIAL FIBRILLATION LOOP RECORDER PLACED 11/27/[address] RIVER FOR ATRIAL FIBRILLATION, ALSO HAD AN ESSENTIALLY NORMAL STRESS TEST THE SAME DAY, EF 65% PCP: DR. JOHN Allergies and Home Medications Allergies Coded Allergies: No Known Drug Allergies (Unverified , 01/23/12) Patient Home Medication List Home Medication List Reviewed: Yes Acetaminophen (Tylenol Extra Strength) 500 Mg Tablet, 1,000 MG PO Q8H PRN for PAIN-MILD (1-4), (Reported) Entered as Reported by: SANTO HARRIS on 06/04/21 1036 Last Action: Held Albuterol Sulfate (Albuterol Sulfate) 2.5 Mg/3 Ml Vial.neb, 2.5 MG INH Q6H PRN for SHORTNESS OF BREATH, (Reported) Entered as Reported by: JEFF TONY on 11/29/21 0230 Last Action: Held Apixaban (Eliquis) 2.5 Mg Tablet, 2.5 MG PO BID, (Reported) Entered as Reported by: MI BONDS on 01/21/22933 Last Action: Continued Aspirin (Aspirin EC) 81 Mg Tablet.dr, 81 MG PO BID, (Reported) Entered as Reported by: SANTO HARRIS on 06/04/21 103 Last Action: Continued Bisacodyl (Dulcolax) 10 Mg Supp.rect, 10 MG RC DAILY PRN for CONSTIPATION-4TH LINE, (Reported) Entered as Reported by: MI BONDS on 01/21/22933 Last Action: Held Cholecalciferol (Vitamin D3) (Vitamin D3) 125 Mcg Tablet, 125 MCG PO DAILY, (Reported) Entered as Reported by: MI BONDS on 02/04/21 0849 Last Action: Held Cyanocobalamin (Vitamin B-12) (Vitamin B-12) 1,000 Mcg Tablet, 1,000 MCG PO DAILY, (Reported) Entered as Reported by: SANTO HARRIS on 07/24/21 135 Last Action: Held Diphenhydramine HCl (Benadryl Allergy) 25 Mg Tablet, 25 MG PO Q6H PRN for ALLERGIES, (Reported) Entered as Reported by: MI BONDS on 01/21/22933 Last Action: Held Docusate Sodium (Docusate Sodium) 100 Mg Capsule, 100 MG PO DAILY, (Reported) Entered as Reported by: SANTO HARRIS on 06/04/211035 Last Action: Continued Gabapentin (Neurontin) 300 Mg Capsule, 300 MG PO DAILY, (Reported) Entered as Reported by: SANTO HARRIS on 07/24/21 135 Last Action: Continued Guaifenesin (Mucinex) 600 Mg Tab.er.12h, 600 MG PO BID, (Reported) Entered as Reported by: SANTO HARRIS on 07/24/21 135 Last Action: Continued Guaifenesin (Tussin) 100 Mg/5 Ml Liquid, 10 ML PO Q8H PRN for COUGH, (Reported) Entered as Reported by: MI BONDS on 01/21/22 09 Last Action: Continued Hydrocodone/Acetaminophen (Hydrocodone-Acetamin 5-325 mg) 1 Each Tablet, 1 EA PO Q4H PRN for PAIN-MODERATE (5-7), (Reported) Entered as Reported by: SANTO HARRIS on 07/24/211354 Last Action: Held Magnesium Hydroxide (Milk of Magnesia) 400 Mg/5 Ml Oral.susp, 30 ML PO Q12H PRN for CONSTIPATION-7TH LINE, (Reported) Entered as Reported by: MI BONDS on 01/21/22933 Last Action: Held Melatonin (Melatonin) 3 Mg Tablet, 6 MG PO HS, (Reported) Entered as Reported by: SANTO HARRIS on 07/24/211354 Last Action: Continued Mometasone/Formoterol (Dulera 100 Mcg/5 Mcg Inhaler) 13 Gm Hfa.aer.ad, 2 PUFF INH BID, (Reported) Entered as Reported by: SANTO HARRIS on 07/24/211354 Last Action: Converted Pantoprazole Sodium (Pantoprazole Sodium) 40 Mg Tablet.dr, 40 MG PO DAILY, (Reported) Entered as Reported by: SANTO HARRIS on 06/04/21 103 Last Action: Continued Polyethylene Glycol 3350 (Miralax) 17 Gm Powd.pack, 17 GM PO DAILY PRN for CONSTIPATION-2ND LINE, (Reported) Entered as Reported by: SANTO HARRIS on 06/04/21 103 Last Action: Held Sennosides (Senna) 8.6 Mg Tablet, 8.6 MG PO DAILY PRN for CONSTIPATION-5TH LINE, (Reported) Entered as Reported by: SANTO HARRIS on 07/24/211354 Last Action: Held Sodium Chloride (Saline Nasal [place]) 30 Ml [place], 2 SPRAYS NS Q1HR PRN for CONGESTION, (Reported) Entered as Reported by: JEFF TONY on 11/29/21 0316 Last Action: Held Sotalol HCl (Sotalol) 80 Mg Tablet, 80 MG PO DAILY, (Reported) Entered as Reported by: MI BONDS on 01/21/22933 Last Action: Continued Tramadol HCl (Tramadol HCl) 50 Mg Tablet, 50 MG PO Q6H PRN for PAIN-MODERATE (5- 7), (Reported) Entered as Reported by: SANTO HARRIS on 07/24/211354 Last Action: Held Venlafaxine HCl (Venlafaxine HCl ER) 150 Mg Cap.er.24h, 150 MG PO DAILY, (Reported) Entered as Reported by: MI BONDS on 01/21/22933 Last Action: Converted Vit A & D3 in Cod Liver Oil (Cod Liver Oil Softgel) 1 Each Capsule, 2 EACH PO DAILY, (Reported) Entered as Reported by: SANTO HARRIS on 07/24/211354 Last Action: Held Discontinued Medications Apixaban (Eliquis) 2.5 Mg Tablet, 2.5 MG PO BID Discontinued Reason: Duplicate Order Prescribed by: RICARDO CLIFFORD on 12/02/21902 Last Action: Discontinued Bisacodyl (Bisacodyl) 10 Mg Supp.rect, 10 MG RC DAILY PRN for CONSTIPATION-4TH LINE, (Reported) Discontinued Reason: Duplicate Order Entered as Reported by: SANTO HARRIS on 07/24/211354 Last Action: Discontinued Cefdinir (Cefdinir) 300 Mg Capsule, 300 MG PO BID Discontinued Reason: No Longer Taking Prescribed by: RICARDO CLIFFORD on 12/02/21902 Last Action: Discontinued Escitalopram Oxalate (Lexapro) 10 Mg Tablet, 10 MG PO HS, (Reported) Discontinued Reason: No Longer Taking Entered as Reported by: SANTO HARRIS on 07/24/211354 Last Action: Discontinued Sotalol HCl (Sotalol) 80 Mg Tablet, 80 MG PO DAILY Discontinued Reason: Duplicate Order Prescribed by: RICARDO CLIFFORD on 12/02/21902 Last Action: Discontinued Review of Systems Review of Systems Constitutional: see HPI, malaise, weakness Respiratory: see HPI, short of breath Gastrointestinal: loss of appetite; No vomiting Past Bmasmtv-Juzpde-Kddjjc Hx Patient Social History Tobacco Use?: No Use of E-Cig and/or Vaping dev: No Substance use?: No Alcohol Use?: No Pt feels they are or have been: No Immunizations Up To Date First/Initial COVID19 Vaccinat: 2019 Second COVID19 Vaccination Rufino: 2020 Third COVID19 Vaccination Date: 2021 Past Medical History Surgery/Hospitalization HX: EYE SURGERY, HERNIA REPAIR, left hip, COPD Surgeries: Yes (hernia; LOOP RECORDER) Abdominal, Cardiac, Eye Surgery, Joint Replacement, Orthopedic Respiratory: Yes (O2 DEPENDENT AT 2-3L/NC) Pneumonia, COPD Currently Using CPAP: No Currently Using BIPAP: No Cardiac: Yes (LOOP RECORDER) Atrial Fibrillation, High Cholesterol, Hypertension Neurological: Yes Dementia Reproductive Disorders: No Genitourinary: Yes (URETHRAL STRICTURE; RETENTION; SUPRAPUBIC CATHETER 05/2021) Renal Failure Gastrointestinal: Yes Abdominal Hernia, Gastroesophageal Reflux, Polyps Musculoskeletal: Yes (UNSTEADY GAIT; LEFT HIP FX/ORIF WITH REVISION) Arthritis, Fractures Endocrine: Yes Hypothyroidsim HEENT: No Cancer: No Psychosocial: No Integumentary: No Blood Disorders: Yes (ANEMIA) Family Medical History No Pertinent Family Hx LOOP RECORDER PLACED AND STRESS TEST 11/27/[address] RIVER 1. Patient tolerated Lexiscan well 2. No significant ischemia or infarction on SPECT images 3. Normal left ventricular size, EF 65% SUPRAPUBIC CATH AND CYSTOSCOPY 05/[address] GARRETT COLONOSCOPIES LEFT HIP FX/ORIF 01/[address] BERNAL WITH LATER REVISION Physical Exam Vital Signs - First Documented 01/20/22 22:05 Temp 36.4 Pulse 66 Resp 22 B/P (MAP) 96/53 (67) Pulse Ox 93 O2 Delivery Nasal Cannula O2 Flow Rate 6.00 Capillary Refill : Less Than 3 Seconds Height: 6'2.00" Weight: 186lbs. oz. 81.320127iy; 24.50 BMI Method: General Appearance: WD/WN, no apparent distress, thin, other (SOMEWHAT LETHARGIC, BUT AWAKE AND ABLE TO ANSWER QUESTIONS AND FOLLOW COMMANDS) HEENT: other (ORAL MUCOSA SLIGHTLY DRY. 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 NO OBVIOUS CONFUSION. ) Skin: normal color, warm/dry; No rash Focused Exam Lactate Level 01/20/22 22:15: Lactic Acid Level 1.45 Lactic Acid Level Laboratory Tests Test 01/20/22 22:15 Lactic Acid Level 1.45 MMOL/L (0.50-2.00) Progress/Results/Core Measures Suspected Sepsis Infection Criteria Present: Documented Infection Sepsis Screen: Severe Sepsis Risk SIRS Temperature: Pulse: 87 Respiratory Rate: 25 Laboratory Tests 01/20/22 22:15: White Blood Count 31.4*H Blood Pressure 125 /68 Mean: 91 01/20/22 22:15: Lactic Acid Level 1.45 Laboratory Tests 01/20/22 22:15: Creatinine 1.85H, INR Comment 1.2, Platelet Count 234, Total Bilirubin 0.8 Results/Orders Lab Results Laboratory Tests Test 01/20/22 22:15 Range/Units White Blood Count 31.4 *H 4.3-11.0 10^3/uL Red Blood Count 3.88 L 4.30-5.52 10^6/uL Hemoglobin 12.0 L 13.3-17.7 g/dL Hematocrit 36 L 40-54 % Mean Corpuscular Volume 93 80-99 fL Mean Corpuscular Hemoglobin 31 25-34 pg Mean Corpuscular Hemoglobin Concent 33 32-36 g/dL Red Cell Distribution Width 12.7 10.0-14.5 % Platelet Count 234 130-400 10^3/uL Mean Platelet Volume 9.2 9.0-12.2 fL Immature Granulocyte % (Auto) 1 % Neutrophils (%) (Auto) 88 H 42-75 % Lymphocytes (%) (Auto) 3 L 12-44 % Monocytes (%) (Auto) 7 0-12 % Eosinophils (%) (Auto) 0 0-10 % Basophils (%) (Auto) 1 0-10 % Neutrophils # (Auto) 27.7 H 1.8-7.8 10^3/uL Lymphocytes # (Auto) 1.0 1.0-4.0 10^3/uL Monocytes # (Auto) 2.2 H 0.0-1.0 10^3/uL Eosinophils # (Auto) 0.0 0.0-0.3 10^3/uL Basophils # (Auto) 0.2 H 0.0-0.1 10^3/uL Immature Granulocyte # (Auto) 0.3 H 0.0-0.1 10^3/uL Neutrophils % (Manual) 91 % Lymphocytes % (Manual) 2 % Monocytes % (Manual) 7 % Band Neutrophils % Polychromasia SLIGHT Erythrocyte Sedimentation Rate 41 H 0-30 MM/HR Prothrombin Time 16.0 H 12.2-14.7 SEC INR Comment 1.2 0.8-1.4 Activated Partial Thromboplast Time 40 H 24-35 SEC Sodium Level 128 L 135-145 MMOL/L Potassium Level 5.0 3.6-5.0 MMOL/L Chloride Level 89 L 98-107 MMOL/L Carbon Dioxide Level 27 21-32 MMOL/L Anion Gap 12 5-14 MMOL/L Blood Urea Nitrogen 24 H 7-18 MG/DL Creatinine 1.85 H 0.60-1.30 MG/DL Estimat Glomerular Filtration Rate 36 BUN/Creatinine Ratio 13 Glucose Level 128 H 70-105 MG/DL Lactic Acid Level 1.45 0.50-2.00 MMOL/L Calcium Level 9.2 8.5-10.1 MG/DL Corrected Calcium 9.7 8.5-10.1 MG/DL Magnesium Level 1.6 1.6-2.4 MG/DL Total Bilirubin 0.8 0.1-1.0 MG/DL Aspartate Amino Transf (AST/SGOT) 14 5-34 U/L Alanine Aminotransferase (ALT/SGPT) 11 0-55 U/L Alkaline Phosphatase 88 40-136 U/L Troponin I < 0.028 <0.028 NG/ML C-Reactive Protein High Sensitivity 9.27 H 0.00-0.50 MG/DL B-Type Natriuretic Peptide 69.6 <100.0 PG/ML Total Protein 7.2 6.4-8.2 GM/DL Albumin 3.4 3.2-4.5 GM/DL Procalcitonin 0.42 H <0.10 NG/ML Influenza Type A (RT-PCR) Not Detected Not Detecte Influenza Type B (RT-PCR) Not Detected Not Detecte SARS-CoV-2 RNA (RT-PCR) Not Detected Not Detecte Micro Results Microbiology 01/20/22 Blood Culture - Preliminary, Resulted No growth 01/20/22 Blood Culture - Preliminary, Resulted No growth My Orders Orders - LINETTE IBARRA DO Ed Iv/Invasive Line Start (01/20/22 22:08) Ekg Tracing (01/20/22 22:08) O2 (01/20/22 22:08) Monitor-Rhythm Ecg Trace Only (01/20/22 22:08) Bnp Sweet [place] (01/20/22 22:08) Cbc With Automated Diff (01/20/22 22:08) Comprehensive Metabolic Panel (6/6/22 22:08) Hs C Reactive Protein (01/20/22 22:08) Magnesium (01/20/22 22:08) Protime With Inr (01/20/22 22:08) Partial Thromboplastin Time (01/20/22 22:08) Erythrocyte Sedimentation Rate (01/20/22 22:08) Troponin I Sweet [place] (01/20/22 22:08) Chest 1 View, Ap/Pa Only (01/20/22 22:08) Procalcitonin (Pct) (01/20/22 22:08) Covid 19 Inhouse Test (01/20/22 22:08) Influenza A And B By Pcr (01/20/22 22:08) Isolation Central Supply Req (01/20/22 22:08) Lactic Acid Analyzer (01/20/22 22:08) Blood Culture (01/20/22 22:08) Sputum Culture (01/20/22 22:08) Ed Iv/Invasive Line Start (01/20/22 22:08) Vital Signs Adult Sepsis Patie Q15M (01/20/22 22:08) O2 (01/20/22 22:08) Remove Rings In Anticipation O (01/20/22 22:08) Manual Differential (01/20/22 22:15) Albuterol/Ipra Inhalation Soln (Duoneb I (01/20/22 22:45) Rt Request For Service (01/20/22 22:34) Methylprednisolone Sod Succ (Solu-Medrol (01/20/22 22:34) Svn Small Volume Nebulizer (01/20/22 22:34) Ed Iv/Invasive Line Start (01/20/22 22:36) Lactated Ringers (Lr 1000 Ml Iv Solution (01/20/22 22:45) Vital Signs/I&O 01/20/22 01/20/22 01/20/22 22:05 22:05 22:10 Temp 36.4 Pulse 66 Resp 22 B/P (MAP) 96/53 (67) Pulse Ox 93 93 O2 Delivery Nasal Cannula Nasal Cannula Nasal Cannula O2 Flow Rate 6.00 6.00 Capillary Refill : Less Than 3 Seconds Blood Pressure Mean: 91 Point of Care Testing Finger Stick Blood Glucose: 110 Blood Glucose Action Taken: RN NOTIFIED Progress Note : Progress Note PPE WORN COVID AND FLU TESTING DONE SEPSIS PROTOCOL INITIATED. INITIAL O2 SATS 89-90% ON 6L/NC CHANGED TO OXIMASK UP TO 12 L, WITH NO INCREASE IN O2 SATS. GIVEN NEB TREATMENT, O2 SATS UP TO 96% ON OXIMASK AT 12 LITERS, AND PT STATES HE FEELS LIKE HE CAN BREATHE BETTER. NO DETERIORATION IN PT'S CONDITION DURING ER STAY. ECG Initial ECG Impression Date: Jan 20, 2022 Initial ECG Impression Time: 22:20 Initial ECG Rate: 63 Initial ECG Rhythm: Normal Sinus Initial ECG Impression: Nonspecific Changes Diagnostic Imaging Comments CXR--PER RADIOLOGIST REPORT AT 2236 There is a loop recorder projecting over the left chest. There is infiltrate present at the left lung base. Right lung is clear. IMPRESSION: Left basilar infiltrate consistent with pneumonia Reviewed: Reviewed by Me Departure Communication (Admissions) Family Conversation 2312--ATTEMPTING TO CONTACT FAMILY--NO ANSWER 000--SPOKE WITH PT'S SON, DR. SABINO CASTANEDA, HE ADVISES THAT [id number] IS IN WAITING ROOM AT THIS TIME. ( NO ONE HAD INFORMED ANY STAFF THAT FAMILY WERE HERE) SHE WAS IMMEDIATELY BROUGHT TO PT'S ROOM, AND UPDATED ON PT'S CONDITION. 2239--SPOKE WITH DR. KAMINSKI, ACCEPTS PT FOR ADMIT 2252--REPORT TO E-ICU PHYSICIAN. Impression Primary Impression: Acute and chronic respiratory failure with hypoxia Additional Impressions: PERSISTENT LLL PNEUMONIA Failure of outpatient treatment History of atrial fibrillation Severe sepsis UTI (urinary tract infection) Acute on chronic renal insufficiency Dementia Disposition: ADMITTED INPATIENT Condition: Stable Admissions Decision to Admit Reason: Admit from ER (General) Decision to Admit/Date: Jan 20, 2022 Time/Decision to Admit Time: 22:40 Departure-Patient Inst. Referrals: ERIK JOHN MD (PCP) Primary Care Physician LINETTE IBARRA DO Jan 22, 2022 18:26
[2022-01-22] MEDS: MELATONIN 3 MG TABLET PO SCH (20:50)
[2022-01-23] MEDS: RT-ALBUTEROL/IPRATROPIUM 3 ML (DUONEB) VIAL INH SCH ×6 (02:25→22:23)
[2022-01-23] MEDS: VANCOMYCIN 1 GM/NS 250 ML IVPB IV SCH ×2 (02:34)
[2022-01-23] MEDS: NOREPINEPHRINE 8 MG/250 ML 250 ML IV SCH (04:02)
[2022-01-23 05:02] LABS: BASOPHILS % (AUTO) 0 % (0-10); EOSINOPHILS % (AUTO) 0 % (0-10); HEMATOCRIT 29 % (40-54); HEMOGLOBIN 9.9 g/dL (13.3-17.7); LYMPHOCYTES # (AUTO) 1.3 10^3/uL (1.0-4.0); LYMPHOCYTES % (AUTO) 6 % (12-44); MEAN CORPUSCULAR HEMOGLOBIN 31 pg (25-34); MEAN CORPUSCULAR HGB CONC 34 g/dL (32-36); MEAN CORPUSCULAR VOLUME 92 fL (80-99); MEAN PLATELET VOLUME 9.7 fL (9.0-12.2); MONOCYTES # (AUTO) 1.3 10^3/uL (0.0-1.0); MONOCYTES % (AUTO) 6 % (0-12); NEUTROPHILS # (AUTO) 20.5 10^3/uL (1.8-7.8); NEUTROPHILS % (AUTO) 88 % (42-75); PLATELET COUNT 207 10^3/uL (130-400); WHITE BLOOD COUNT 23.4 10^3/uL (4.3-11.0)
[2022-01-23 05:13] LABS: ALBUMIN 2.8 GM/DL (3.2-4.5); POTASSIUM 3.9 MMOL/L (3.6-5.0)
[2022-01-23] MEDS: POTASSIUM CL 10MEQ/50ML IVPB 50 ML IV SCH (05:14)
[2022-01-23 05:15] LABS: CALCIUM 8.5 MG/DL (8.5-10.1)
[2022-01-23] MEDS: KCL 20 MEQ TAB (K-DUR) PO SCH (05:15)
[2022-01-23 05:16] LABS: TOTAL PROTEIN 5.8 GM/DL (6.4-8.2)
[2022-01-23 05:18] LABS: BILIRUBIN,TOTAL 0.3 MG/DL (0.1-1.0)
[2022-01-23 05:19] LABS: CREATININE SERUM 1.12 MG/DL (0.60-1.30)
[2022-01-23 05:20] LABS: BAND NEUTROPHILS 3 %; BASOPHILS % (MANUAL) 0 %; EOSINOPHILS % (MANUAL) 0 %; LYMPHOCYTES % (MANUAL) 7 %; MONOCYTES % (MANUAL) 2 %; NEUTROPHILS % (MANUAL) 88 %; RBC MORPH NORMAL
[2022-01-23 05:22] LABS: MAGNESIUM 1.8 MG/DL (1.6-2.4)
[2022-01-23] MEDS: inSUlin ASPART (NovoLOG) 1 UNIT/0.01 ML (CHARGE PER UNIT) SC SCH (05:26)
[2022-01-23] MEDS: MAGNESIUM 1 GM/100 ML IVPB 100 ML IV SCH (05:27)
[2022-01-23] MEDS: RT--FLUTICASONE/SALMETEROL 113-14 (AIRDUO RespiCLICK) IH SCH ×2 (07:13→22:22)
[2022-01-23] MEDS: VENlafaxine XR 75 MG (EFFEXOR XR) CAP PO SCH (08:12)
[2022-01-23] MEDS: MEROPENEM 500 MG/NS 100 ML IVPB IV SCH ×4 (08:18→17:07)
[2022-01-23] MEDS: DOCUSATE SODIUM 100 MG (COLACE) CAP PO SCH (08:19)
[2022-01-23] MEDS: GABAPENTIN 300 MG (NEURONTIN) CAP PO SCH (08:19)
[2022-01-23] MEDS: APIXABAN 2.5 MG (ELIQUIS) TABLET PO SCH ×2 (08:19→21:46)
[2022-01-23] MEDS: PANTOPRAZOLE 40 MG (PROTONIX) TAB PO SCH (08:19)
[2022-01-23] MEDS: ASPIRIN E.C. 81 MG (ECOTRIN) TAB PO SCH ×2 (08:19→21:46)
[2022-01-23] MEDS: guaiFENesin (MUCINEX) 600 MG TAB PO SCH ×2 (08:20→21:46)
--- NOTE | 2022-01-23 08:30 | Cardiology Progress Note ---
Subjective Date Seen by Provider: Jan 23, 2022 Time Seen by Provider: 08:28 Subjective/Events-last exam Patient was seen at bedside, laying down comfortably Feeling better today, breathing better. Review of Systems General: No Chills, No Night Sweats; Fatigue; No Malaise, No Appetite, No Other HEENT: No Head Aches, No Visual Changes, No Eye Pain, No Ear Pain, No Dysp hasia, No Sinus Congestion, No Post Nasal Drip, No Sore Throat, No Other Pulmonary: Dyspnea, Cough; No Pleuritic Chest Pain, No Other Cardiovascular: No: Chest Pain, Palpitations, Orthopnea, Paroxysmal Noc. Dyspnea, Edema, Lt Headedness, Other Focused Exam Lactate Level 01/20/22 22:15: Lactic Acid Level 1.45 Objective-Cardiology Exam Last Set of Vital Signs Vital Signs 01/21/22 01/23/22 01/23/22 01/23/22 19:15 07:00 07:13 07:58 Temp 36.3 Pulse 89 Resp 19 B/P (MAP) 174/118 Pulse Ox 98 O2 Delivery Nasal Cannula O2 Flow Rate 1.00 FiO2 25 I&O Intake and Output 01/23/22 00:00 Intake Total 2240 ml Output Total 2290 ml Balance -50 ml Intake Oral 1590 ml IV Total 650 ml Output Urine Total 2290 ml General: Alert, Oriented X3, Cooperative HEENT: Atraumatic, PERRLA Neck: Supple, No JVD, No Thyromegaly Lungs: Normal Air Movement, Other (Bilateral rhonchi) Heart: Normal S1, Normal S2, No Murmurs, Other Abdomen: Normal Bowel Sounds, Soft, No Tenderness, No Hepatosplenomegaly, No Masses Extremities: No Clubbing, No Cyanosis, No Edema, Normal Pulses, No Tenderness/Swelling Skin: No Rashes, No Breakdown, No Significant Lesion Neuro: Normal Speech, Normal Tone, Sensation Intact Psych/Mental Status: Mental Status NL, Mood NL Results Lab Laboratory Tests 01/23/22 04:55 A/P-Cardiology Admission Diagnosis Pneumonia Sepsis Paroxysmal atrial fibrillation Hypertension Assessment/Plan Pneumonia, admitted to ICU, receiving antibiotics, managed by primary care physician Sepsis, secondary to pneumonia Receiving antibiotics, managed by medical team. Continue to monitor Acute exacerbation of COPD, history of oxygen dependence. Currently requiring more oxygen, managed by medical team Paroxysmal atrial fibrillation, had 2 episodes of atrial fibrillation in January 2021, admitted in November 2021 with atrial fibrillation. Failed amiodarone treatment, treated with sotalol. Currently in atrial fibrillation, I am escalating the sotalol dose to 120 mg twice daily and evaluate tolerance and response Continue to monitor QTC 2D echo was done on January 22, 2022 showing normal LV size with EF 50 to 55%, PA pressure 25 mmHg. [id number] score of 2, yearly risk of stroke without oral anticoagulation is 2.2%. Maintained on aspirin and Eliquis 2.5 mg twice daily History of labile hypotension, episode of borderline hypotension, currently blood pressure is stable. Asymptomatic. Continue to monitor History of left hip fracture, underwent surgical repair with Dr. Morrison on February 01, 2021 then repeat x-ray showed possible migration, referred to Dr. Hall, had to have redo surgery with different hardware and recovering better, using a walker. Reporting improvement. History of renal insufficiency, continue to monitor renal function Lexiscan stress test was done in November 2021 showing no significant ischemia or infarction, ejection fraction 65% JENNIFER RIVER MD Jan 23, 2022 08:30
[2022-01-23] MEDS: VASOPRESSIN INJECTION 20 UNIT in NS (IVPB) 100 ML IV SCH (08:35)
[2022-01-23] MEDS: SOTALOL 80 MG (BETAPACE) TAB PO SCH ×2 (09:06→21:46)
[2022-01-23] MEDS ORDERED: MILK OF MAGNESIA 400 MG/5 ML 30 ML UDC PO ONE (10:15)
--- NOTE | 2022-01-23 11:57 | Tele-ICU Progress Note ---
Subjective Date Seen by a Provider: Jan 23, 2022 Time Seen by a Provider: 09:47 Subjective/Events-last exam (Tele-ICU Physician , Progress Note ) Available chart/ vitals / labs / Images reviewed Video assessment done using teleICU camera, rest of exam as per RN Discussed with RN , EXAM PER RN Events overnight : Afebrile FiO2 - 10 l o2 --> VT --> 2 L I/O = + Drips: d Pressors: , hemodynamically stable Consultants: Hospital course: (01/21) 81/M admitted for shortness of breath LLL pneumonia A/P Acute resp failure with PNA - worsenign today from 10 L to VT - --> 2 L now - cont abx - OFF steroids 01/21 Sepsis - received IVF boluses , on NS 150 now , not on pressors PNA LLL - cont abx , follow cx UTI ? - PSA - suprapubic cather on place MERVIN/ CKD -- creatining improving Hyponatemia - improving PAF - rate controlled -eliquis COPD - nebs , steroids anemia - stable Accucheck - on high dose steroids - STOP DNI/DNR Lines : periph (Central Line Necessity Reviewed) Gunderson: + OG: Nutrition: po Analgesia: Anxiety/ delirium na VTE Prophylaxis: eliquis Stress Ulcer Prophylaxis: Plans in collaboration with bedside consultants and IM MDs. Discussed with RN to reach out if any questions or concerns A total of 34 minutes of critical care time was devoted to this patient today, required to treat and/or prevent further deterioration of critical care condition ( as above) . Sepsis Event Evaluation Height, Weight, BMI Height: 6'2.00" Weight: 186lbs. oz. 81.792967ge; 24.50 BMI Method: Focused Exam Lactate Level 01/20/22 22:15: Lactic Acid Level 1.45 Exam Exam Patient acknowledged, consented, and participated in this virtual visit which was conducted using real time audio/video Vital Signs Date Time Temp Pulse Resp B/P (MAP) Pulse Ox O2 Delivery O2 Flow Rate FiO2 01/23/22 11:06 84 01/23/22 11:00 76 11 129/87 100 High Flow N/C 1.00 01/23/22 10:58 100 Nasal Cannula 1.00 01/23/22 10:00 84 27 117/75 99 High Flow N/C 1.00 01/23/22 09:06 84 01/23/22 09:00 76 18 138/87 96 High Flow N/C 1.00 01/23/22 08:43 95 High Flow N/C 1.00 01/23/22 08:35 80 138/87 01/23/22 08:00 77 22 123/85 99 Nasal Cannula 2.00 01/23/22 08:00 100 High Flow N/C 2.00 01/23/22 07:58 36.3 01/23/22 07:13 98 Nasal Cannula 1.00 01/23/22 07:00 89 01/23/22 07:00 79 19 174/118 98 Nasal Cannula 2.00 01/23/22 06:00 71 14 152/92 100 High Flow N/C 2.00 01/23/22 05:00 75 17 143/80 98 High Flow N/C 2.00 01/23/22 04:02 84 150/92 01/23/22 04:00 100 High Flow N/C 2.00 01/23/22 04:00 87 17 150/92 98 High Flow N/C 2.00 01/23/22 03:59 36.1 01/23/22 03:00 74 18 147/102 97 High Flow N/C 2.00 01/23/22 02:26 98 Nasal Cannula 1.00 01/23/22 02:00 72 18 120/62 98 High Flow N/C 2.00 01/23/22 01:00 77 01/23/22 01:00 68 17 139/74 100 High Flow N/C 2.00 01/23/22 00:00 75 16 123/78 100 High Flow N/C 2.00 01/22/22 23:59 100 High Flow N/C 2.00 01/22/22 23:51 36.3 01/22/22 23:00 76 19 125/76 100 High Flow N/C 2.00 01/22/22 22:51 67 01/22/22 22:45 66 133/73 01/22/22 22:22 97 Nasal Cannula 1.00 01/22/22 22:00 73 18 133/73 98 High Flow N/C 2.00 01/22/22 21:00 85 20 98 High Flow N/C 2.00 01/22/22 20:51 80 01/22/22 20:00 100 High Flow N/C 2.00 01/22/22 20:00 99 23 148/66 97 High Flow N/C 2.00 01/22/22 19:19 37.0 01/22/22 19:00 89 01/22/22 19:00 89 14 133/73 99 High Flow N/C 2.00 01/22/22 18:50 98 Nasal Cannula 1.00 01/22/22 18:00 92 24 98 High Flow N/C 2.00 01/22/22 17:00 100 29 127/73 99 High Flow N/C 2.00 01/22/22 16:00 79 25 138/79 99 High Flow N/C 2.00 01/22/22 16:00 100 High Flow N/C 2.00 01/22/22 15:43 36.0 01/22/22 15:08 98 High Flow N/C 2.00 01/22/22 15:00 93 25 132/74 94 High Flow N/C 2.00 01/22/22 14:00 91 29 129/73 97 High Flow N/C 2.00 01/22/22 13:00 84 15 133/75 96 High Flow N/C 2.00 01/22/22 13:00 87 01/22/22 12:42 100 High Flow N/C 2.00 01/22/22 12:00 84 27 129/66 100 High Flow N/C 2.00 01/22/22 12:00 36.7 I & O 01/23/22 07:00 Intake Total 1690 ml Output Total 2325 ml Balance -635 ml Height & Weight Height: 6'2.00" Weight: 186lbs. oz. 81.259910rj; 24.50 BMI Method: General Appearance: No Apparent Distress, Anxious HEENT: PERRL/EOMI, Pharynx Normal Neck: Normal Inspection, Supple Respiratory: Lungs Clear, No Respiratory Distress Cardiovascular: Irregularly Irregular, Tachycardia Capillary Refill: Less Than 3 Seconds Peripheral Pulses: 1+ Dorsalis Pedis (R), 1+ Left Dors-Pedis (L) Gastrointestinal: non tender, soft Extremity: Normal Inspection, No Pedal Edema Neurologic/Psychiatric: Alert, Disoriented Skin: Normal Color, Warm/Dry Results Lab Laboratory Tests 01/22/22 04:33 01/23/22 04:55 Assessment/Plan Assessment/Plan ` JOSÉ MIGUEL ZAMORANO MD Jan 23, 2022 11:57
--- NOTE | 2022-01-23 13:23 | ST Dysphagia Evaluation ---
Speech Evaluation-General Medical Diagnosis Onset Date: Jan 23, 2022 Therapy Diagnosis Therapy Diagnosis: Oropharyngeal Dysphagia Precautions Precautions: Fall, Aspiration Precautions/Isolations: Aspiration, Fall Prevention, Standard Precautions Referral Referring Physician: Dr. Barcenas Reason for Referral: Evaluation/Treatment Medical History Pertinent Medical History: Atrial Fib, COPD, Dementia, Neuropathy Current History The patient is an 81 year old male with a past medical history of atrial fibrillation, COPD, and suprapubic catheter, who presented with shortness of breath. CXR: 01/21/22: Left lung infiltrate, greatest in the lower lobe, is not convincingly changed. Underlying COPD, chronic. Biapical density is stable, likely some scarring at that site. Reviewed History: Yes Speech PLF/Current-Dysphagia Prior Level of Function The patient stated he consumes a "softer diet" due to poor condition of his dentition and thin liquids at baseline. The patient stated he additionally crushes his medication and consumes them with "jelly or pudding." The patient denied s/s of suspected aspiration with any consistency he currently consumes. Subjective The patient was seated upright in his recliner, awake and alert upon entrance to his room by the clinician. The patient greeted the clinician appropriately and was agreeable to participation in the clinical bedside swallowing evaluation. The patient reported a "dry throat" at baseline. Additionally, the patient displayed an intermittent throat clear (subtle) throughout informal conversation. The patient is receiving supplemental oxygen at a rate of 1L via nasal cannula with SpO2% at 95%. Cognitive Status Patient Orientation: Person Oral Motor Skills Dentition: Natural (Sparese, poor condition.) Current Food Consistancy: Clear Liquids Ability to Follow Directions: Good Oral Expression Ability: Mild Impairment Voice Voice Phonatory-Based Quality: Breathy Voice Pitch: Normal Voice Loudness: Normal Face Facial Symmetry: Symmetrical Oral-Facial Assessment Labial Seal Description: Normal Smile: Normal Puff Cheeks: Normal Lingual Protrusion: Normal Lingual ROM: Normal Volitional Dry Swallow: Yes Voluntary Cough: Yes Can Clear Throat Volitionally: Yes Productive Cough: Yes (Weak.) Productive Throat Clear: Yes (Weak.) Dysphagia Evaluation Consistencies Presented: Thin Liquid, Mechanical Soft, [place] Thick Liquid, Pureed Oral Phase: Reduced Oral Transit The patient was able to draw bolus consistencies appropriately from a teaspoon and straw. Prolonged mastication time was present with a softened gertrude cracker, however, complete bolus formation and posterior transfer were appreciated. Liquid bolus consistency was required to transfer material (soft solid) posterior in the oral cavity. Laryngeal elevation was present to palpation. The patient demonstrated an increasingly wet vocal quality (subtle) and an increase in his baseline throat clear following straw drinks of thin liquid. The throat clearing behavior and wet vocal quality were not present with nectar-thick liquid consistencies. No s/s of suspected aspiration were present with nectar-thick liquid, puree, or a soft solid consistency. Dietary Recommendations: Mechanical Soft Liquid Recommendations: [place] Consistancy Recommendations: - Dysphagia three consistency diet with mildly thick (nectar-thick) liquids, as tolerated. - Fully upright and alert for P.O. intake. - Small, single bites and sips, only. - Crush medication and place in puree for administration. - Monitor for s/s of suspected aspiration with P.O. intake. If demonstrated, contact the speech pathologist. The results and recommendations were provided to the patient and written on the in-room white board. Additionally, the clinician attempted contact with the RN on two occasions. As the RN could not be reached, the RN who answered the clinician's phone call recorded the recommendations, repeated the recommendations, and stated she would provide the recommendations to the patient's RN. The patient denied additional questions for the clinician at this time. Dysphagia Evaluation Summary The patient demonstrated oropharyngeal dysphagia characterized by decreased airway protection resulting in a wet vocal quality and increased frequency of the patient's baseline throat clear with thin liquids. Speech Short Term Goals Short Term Goals Short Term Goals 1. The patient and staff will follow safe swallowing strategies with 90% accuracy and mild clinician cueing. Time Frame-STG: Three Days. Speech Shop Black[employer] Goals Shop Black[employer] Goals 1. The patient will tolerate the least restrictive diet without s/s of suspected aspiration. Time Frame: Five Days. Speech-Plan Treatment Plan Speech Therapy Treatment Plan: Continue Plan of Care Frequency: 2 times per week Estimated Hrs Per Day: .25 hour per day Rehab Potential: Fair Pt/Family Agrees to Plan: Yes Safety Risks/Education Teaching Recipient: Patient Teaching Methods: Discussion Response to Teaching: Verbalize Understanding, Reinforcement Needed Education Topics Provided: Results and Recommendations, Plan of Care, Swallowing Strategies, S/s of Suspected Aspiration Time Speech Therapy Time In: 12:05 Speech Therapy Time Out: 12:32 Total Billed Time: 27 Billed Treatment Time 1, ADAM NEIL ELIZAB[facility] ST Jan 23, 2022 13:23
--- NOTE | 2022-01-23 16:02 | Progress Note - Hospitalist ---
Subjective HPI/CC On Admission Date Seen by Provider: Jan 23, 2022 Time Seen by Provider: 10:30 Kaiser Pham is an 81 year old male with PMH AFib, COPD, suprapubic catheter, who presented with shortness of breath. He denies cough. He denies fever. He is feeling better upon my exam. He denies chest pain. He denies abdominal pain, n ausea, vomiting, and diarrhea. Subjective/Events-last exam He is sitting in his chair. He is not short of breath. He is feeling better. Focused Exam Lactate Level 01/20/22 22:15: Lactic Acid Level 1.45 Objective Exam Vital Signs Vital Signs Date Time Temp Pulse Resp B/P (MAP) Pulse Ox O2 Delivery O2 Flow Rate FiO2 01/23/22 15:00 83 18 124/86 94 High Flow N/C 1.00 01/23/22 07:58 36.3 01/21/22 19:15 25 Capillary Refill : Less Than 3 Seconds General Appearance: No Apparent Distress, WD/WN Respiratory: Lungs Clear, No Respiratory Distress Cardiovascular: No Murmur, Irregularly Irregular Gastrointestinal: Normal Bowel Sounds, Soft Extremity: Normal Inspection, No Pedal Edema Neurologic/Psychiatric: Alert, Normal Mood/Affect Skin: Normal Color, Warm/Dry Results/Procedures Lab Laboratory Tests 01/23/22 04:55 Patient resulted labs reviewed. Imaging: Reviewed Imaging Report Assessment/Plan Assessment and Plan Assess & Plan/Chief Complaint Sepsis due to pneumonia Acute respiratory failure due to hypoxia MERVIN on CKD Chest xray consistent with pneumonia Stop Vancomycin Continue Meropenem Continue IV fluids Oxygen requirements improving, nearly resolved TeleICU following AFib with RVR Sotalol increased Continue Eliquis Cardiology following COPD Dementia Continue home meds Critical Care Critically Ill Patient Diagnosis/Problems Diagnosis/Problems (1) Sepsis Status: Acute (2) PNA (pneumonia) Status: Acute (3) Acute respiratory failure with hypoxia Status: Acute (4) Acute on chronic kidney failure Status: Acute (5) Atrial fibrillation with RVR Status: Acute NIKO BROWN MD Jan 23, 2022 16:02
[2022-01-23] MEDS: MELATONIN 3 MG TABLET PO SCH (21:46)
[2022-01-24] MEDS: MEROPENEM 500 MG/NS 100 ML IVPB IV SCH ×6 (01:19→17:16)
[2022-01-24] MEDS: RT-ALBUTEROL/IPRATROPIUM 3 ML (DUONEB) VIAL INH SCH ×4 (02:46→19:28)
[2022-01-24 05:23] LABS: BASOPHILS % (AUTO) 0 % (0-10); EOSINOPHILS # (AUTO) 0.1 10^3/uL (0.0-0.3); EOSINOPHILS % (AUTO) 1 % (0-10); HEMATOCRIT 34 % (40-54); HEMOGLOBIN 11.1 g/dL (13.3-17.7); LYMPHOCYTES # (AUTO) 1.9 10^3/uL (1.0-4.0); LYMPHOCYTES % (AUTO) 15 % (12-44); MEAN CORPUSCULAR HEMOGLOBIN 30 pg (25-34); MEAN CORPUSCULAR HGB CONC 33 g/dL (32-36); MEAN CORPUSCULAR VOLUME 92 fL (80-99); MEAN PLATELET VOLUME 9.9 fL (9.0-12.2); MONOCYTES # (AUTO) 1.3 10^3/uL (0.0-1.0); MONOCYTES % (AUTO) 10 % (0-12); NEUTROPHILS # (AUTO) 9.6 10^3/uL (1.8-7.8); NEUTROPHILS % (AUTO) 73 % (42-75); PLATELET COUNT 254 10^3/uL (130-400); WHITE BLOOD COUNT 13.1 10^3/uL (4.3-11.0)
[2022-01-24 05:37] LABS: POTASSIUM 4.1 MMOL/L (3.6-5.0)
[2022-01-24 05:38] LABS: CALCIUM 8.8 MG/DL (8.5-10.1)
[2022-01-24 05:40] LABS: TOTAL PROTEIN 6.2 GM/DL (6.4-8.2)
[2022-01-24 05:41] LABS: BILIRUBIN,TOTAL 0.4 MG/DL (0.1-1.0)
[2022-01-24 05:43] LABS: CREATININE SERUM 1.03 MG/DL (0.60-1.30)
[2022-01-24 05:46] LABS: MAGNESIUM 1.8 MG/DL (1.6-2.4)
[2022-01-24] MEDS: KCL 20 MEQ TAB (K-DUR) PO SCH (06:33)
[2022-01-24] MEDS: MAGNESIUM 1 GM/100 ML IVPB 100 ML IV SCH (06:33)
[2022-01-24] MEDS: POTASSIUM CL 10MEQ/50ML IVPB 50 ML IV SCH (06:33)
[2022-01-24] MEDS: ASPIRIN E.C. 81 MG (ECOTRIN) TAB PO SCH ×2 (08:13→22:01)
[2022-01-24] MEDS: VENlafaxine XR 75 MG (EFFEXOR XR) CAP PO SCH (08:13)
[2022-01-24] MEDS: APIXABAN 2.5 MG (ELIQUIS) TABLET PO SCH ×2 (08:14→22:02)
[2022-01-24] MEDS: GABAPENTIN 300 MG (NEURONTIN) CAP PO SCH (08:14)
[2022-01-24] MEDS: DOCUSATE SODIUM 100 MG (COLACE) CAP PO SCH (08:14)
[2022-01-24] MEDS: PANTOPRAZOLE 40 MG (PROTONIX) TAB PO SCH (08:14)
[2022-01-24] MEDS: SOTALOL 80 MG (BETAPACE) TAB PO SCH ×2 (08:14→23:29)
[2022-01-24] MEDS: guaiFENesin (MUCINEX) 600 MG TAB PO SCH ×2 (08:14→22:01)
--- NOTE | 2022-01-24 09:48 | Progress Note - Cardiology ---
Cardiology SOAP Progress Note Subjective: Sitting up in bed States he feels much better today No c/o CP or SOB Does not want to go back to [facility] - states he is scared of some of the staff there Objective: I&O/Vital Signs 01/27/22 01/27/22 01/27/22 01/27/22 03:58 04:00 06:35 06:56 Temp 36.1 Pulse 50 48 Resp 19 B/P (MAP) 119/68 Pulse Ox 94 94 O2 Delivery Nasal Cannula Nasal Cannula O2 Flow Rate 2.00 2.00 01/27/22 01/27/22 01/27/22 01/27/22 07:52 08:43 09:38 10:50 Temp 37.0 Pulse 50 52 Resp 26 B/P (MAP) 121/66 Pulse Ox 92 95 93 O2 Delivery Nasal Cannula Nasal Cannula Nasal Cannula O2 Flow Rate 2.00 2.00 2.00 01/27/22 01/27/22 12:00 12:35 Temp 36.0 Pulse 59 58 Resp 20 B/P (MAP) 106/63 Pulse Ox 91 O2 Delivery Nasal Cannula O2 Flow Rate 2.00 01/27/22 00:00 Intake Total 270 ml Output Total 1400 ml Balance -1130 ml Weight (Pounds): 186 Weight (Calculated Kilograms): 81.053810 Constitutional: AAO x 3, well-developed, well-nourished Respiratory: No accessory muscle use, No respiratory distress; chest expansion is symmetric, chest is bilaterally symmetric, lungs clear to auscultation Cardiovascular: regular rate-rhythm; No JVD; S1 and S2 Gastrointestional: No tender; soft, round, audible bowel sounds Extremities: no lower extremity edema bilateral Neurologic/Psychiatric: grossly intact (movs all extremities) Skin: No rash on exposed areas, No ulcerations on exposed areas Results/Procedures: Labs Laboratory Tests 01/27/22 04:59: White Blood Count 11.0, Red Blood Count 3.67L, Hemoglobin 11.1L, Hematocrit 34L, Mean Corpuscular Volume 92, Mean Corpuscular Hemoglobin 30, Mean Corpuscular Hemoglobin Concent 33, Red Cell Distribution Width 13.0, Platelet Count 232, Mean Platelet Volume 9.4, Immature Granulocyte % (Auto) 4, Neutrophils (%) (Auto) 68, Lymphocytes (%) (Auto) 9L, Monocytes (%) (Auto) 11, Eosinophils (%) (Auto) 7, Basophils (%) (Auto) 1, Neutrophils # (Auto) 7.5, Lymphocytes # (Auto) 1.0, Monocytes # (Auto) 1.2H, Eosinophils # (Auto) 0.8H, Basophils # (Auto) 0.1, Immature Granulocyte # (Auto) 0.5H, Sodium Level 129L, Potassium Level 4.1, Chloride Level 94L, Carbon Dioxide Level 26, Anion Gap 9, Blood Urea Nitrogen 23H, Creatinine 1.26, Estimat Glomerular Filtration Rate 57, BUN/Creatinine Ratio 18, Glucose Level 85, Calcium Level 8.8, Corrected Calcium 9.5, Phosphorus Level 2.9, Magnesium Level 1.7, Total Bilirubin 0.6, Aspartate Amino Transf (AST/SGOT) 11, Alanine Aminotransferase (ALT/SGPT) 13, Alkaline Phosphatase 73, Total Protein 6.2L, Albumin 3.1L Microbiology 01/21/22 Urine Culture - Final, Complete Pseudomonas aeruginosa Pseudomonas aeruginosa#2 See Comments 01/21/22 MRSA Screen - Final, Complete 01/20/22 Blood Culture - Final, Complete No growth Procedures NAME: PAULINE OVALLE [facility] REC#: [id number] PT STATUS: ADM IN : 1940 PHYSICIAN: JOSÉ MIGUEL ZAMORANO MD ADMIT DATE: 01/20/22/ICU Signed Date of Exam:01/21/22 CHEST 1 VIEW, AP/PA ONLY INDICATION: Respiratory failure. COMPARISON: Exam compared with study of 01/20/2022. FINDINGS: Left lung infiltrate, greatest in the lower lobe, is not convincingly changed. Underlying COPD, chronic. Biapical density is stable, likely some scarring at that site. IMPRESSION: No real change in likely COPD and left lower lobe pneumonia. Dictated by: Dictated on workstation # [id number] Dict: 01/21/22 1113 Trans: 01/21/22 1140 [id number] [id number] Interpreted by: MARICHUY LISA Electronically signed by: MARICHUY LISA 01/21/22 1140 A/P: Assessment: Pneumonia - improved - managed by medical services Sepsis, secondary to pneumonia - improved Acute on chronic exacerbation of COPD, history of oxygen dependence - clinically improved Paroxysmal atrial fibrillation, had 2 episodes of atrial fibrillation in January 2021, admitted in November 2021 with atrial fibrillation. - Failed amiodarone treatment, treated with sotalol (dose recently increased) - Currently in a-fib with controlled rate - [id number] score of 2, yearly risk of stroke without oral anticoagulation is 2.2%. Maintained on aspirin and Eliquis 2.5 mg twice daily - Lexiscan stress test was done in November [address] Roque showing no significant ischemia or infarction, ejection fraction 65% - Echocardiogram was done on January 22, [address] Roque showing normal LV size with EF 50 to 55%, PA pressure 25 mmHg. History of labile hypotension - episode of borderline hypotension - currently controlled History of left hip fracture - underwent surgical repair with Dr. Morrison on February 01, 2021 then repeat x-ray showed possible migration, referred to Dr. Hall, had to have redo surgery with different hardware and recovering better, using a walker History of renal insufficiency - improved Plan: Continue current medication regimen human services assistant has been consulted by medical services to discuss discharge placement (pt does not want to return to [facility]) JANELLE BETANCOURT Jan 24, 2022 09:48
[2022-01-24] MEDS: RT--FLUTICASONE/SALMETEROL 113-14 (AIRDUO RespiCLICK) IH SCH ×2 (10:00→19:28)
--- NOTE | 2022-01-24 11:31 | Tele-ICU Progress Note ---
Subjective Date Seen by a Provider: Jan 24, 2022 Time Seen by a Provider: 11:26 Subjective/Events-last exam Available chart/vitals/labs/images reviewed. Video assessment done using telemetry ICU camera, rest of exam as per RN. Discussion with the RN, exam as per RN. Hospital course Patient currently he is off all the drips. He is resting comfortably in the bed. Hemodynamically stable. He has been treated for sepsis, pneumonia which are significantly improved. Apparently he does not want to go back to the same group home and awaiting to be discharged to home. Sepsis Event Evaluation Height, Weight, BMI Height: 6'2.00" Weight: 186lbs. oz. 81.177817az; 24.50 BMI Method: Exam Exam Patient acknowledged, consented, and participated in this virtual visit which was conducted using real time audio/video Vital Signs Date Time Temp Pulse Resp B/P (MAP) Pulse Ox O2 Delivery O2 Flow Rate FiO2 01/24/22 11:00 61 14 148/81 93 Room Air 01/24/22 10:00 63 20 136/87 92 Room Air 01/24/22 09:00 83 24 156/81 94 Room Air 01/24/22 08:15 96 Room Air 01/24/22 08:14 84 01/24/22 08:00 79 24 135/89 91 Room Air 01/24/22 07:40 36.3 01/24/22 07:00 85 24 154/110 92 Room Air 01/24/22 07:00 77 01/24/22 06:00 81 23 153/104 94 Room Air 01/24/22 05:00 88 18 146/96 91 Room Air 01/24/22 04:00 92 Room Air 1.00 01/24/22 04:00 79 16 135/80 91 Room Air 01/24/22 03:00 64 16 130/84 95 Room Air 01/24/22 02:46 94 Room Air 01/24/22 02:00 74 15 134/83 92 Room Air 01/24/22 01:00 75 12 145/90 93 Room Air 01/24/22 01:00 80 01/24/22 00:00 70 14 133/85 93 Room Air 01/23/22 23:59 92 Room Air 1.00 01/23/22 23:46 70 01/23/22 23:00 89 15 143/96 94 High Flow N/C 1.00 01/23/22 22:23 95 Room Air 01/23/22 22:00 88 20 152/106 94 High Flow N/C 1.00 01/23/22 21:46 87 01/23/22 21:00 99 20 155/103 91 High Flow N/C 1.00 01/23/22 20:00 78 17 142/101 97 High Flow N/C 1.00 01/23/22 20:00 94 High Flow N/C 1.00 01/23/22 19:34 36.2 86 16 150/92 97 High Flow N/C 1.00 01/23/22 19:12 36.0 01/23/22 19:00 85 18 150/92 96 High Flow N/C 1.00 01/23/22 19:00 85 01/23/22 18:33 98 Nasal Cannula 1.00 01/23/22 18:00 80 16 142/103 97 High Flow N/C 1.00 01/23/22 17:00 85 20 141/86 97 High Flow N/C 1.00 01/23/22 16:00 94 High Flow N/C 2.00 01/23/22 16:00 86 10 126/105 95 High Flow N/C 1.00 01/23/22 16:00 36.2 01/23/22 15:00 83 18 124/86 94 High Flow N/C 1.00 01/23/22 14:38 98 Nasal Cannula 1.00 01/23/22 14:00 83 15 131/86 95 High Flow N/C 1.00 01/23/22 13:00 81 15 112/95 98 High Flow N/C 1.00 01/23/22 13:00 85 01/23/22 12:00 74 23 109/87 96 High Flow N/C 1.00 01/23/22 12:00 100 High Flow N/C 2.00 I & O 01/24/22 07:00 Intake Total 1290 ml Output Total 3175 ml Balance -1885 ml Height & Weight Height: 6'2.00" Weight: 186lbs. oz. 81.415719ij; 24.50 BMI Method: General Appearance: No Apparent Distress, WD/WN HEENT: PERRL/EOMI, Pharynx Normal Neck: Normal Inspection, Supple Respiratory: Lungs Clear, No Respiratory Distress Cardiovascular: No Murmur, Irregularly Irregular Capillary Refill: Less Than 3 Seconds Peripheral Pulses: 1+ Dorsalis Pedis (R), 1+ Left Dors-Pedis (L) Gastrointestinal: non tender, soft Extremity: Normal Inspection, No Pedal Edema Neurologic/Psychiatric: Alert, Normal Mood/Affect Skin: Normal Color, Warm/Dry Results Lab Laboratory Tests 01/23/22 04:55 01/24/22 04:44 Assessment/Plan Assessment/Plan 1. Acute respiratory failure with pneumonia significantly improved. Currently on room air. He is off steroids. 2. Sepsis significantly improved and he is off the IV fluids and pressors. 3. Left lower lobe pneumonia. Continue oral antibiotics per primary care. 4. UTI with Pseudomonas aeruginosa secondary to suprapubic catheter. Continue antibiotics per primary care. 5. Acute and chronic kidney disease Clinically improving. 6. Paroxysmal atrial fibrillation. Rate controlled On Eliquis. 7. COPD clinically stable. 8. Anemia stable. From critical care point of view he may be a little discharged home or transfer to stepdown unit. Critical Care: Critically Ill Patient Time spent with patient (mins): 15 FESTUS VIVEROS MD Jan 24, 2022 11:31
--- NOTE | 2022-01-24 15:28 | Physical Therapy Evaluation ---
PT Evaluation-General Medical Diagnosis Admission Date Jan 20, 2022 at 22:40 Medical Diagnosis: Shortness of breath, sepsis due to Pnemonia Onset Date: Jan 23, 2022 Therapy Diagnosis Therapy Diagnosis: Gait deficit, strength deficit Height/Weight Height (Feet): 6 Height (Inches): 2.00 Weight (Pounds): 186 Precautions Precautions/Isolations: Fall Prevention, Standard Precautions Weight Bear Status Right Lower Extremity: Right Full Weight Bearing Left Lower Extremity: Left Full Weight Bearing Referral Physician: Dr. Segura Reason for Referral: Evaluation/Treatment Medical History Pertinent Medical History: Atrial Fib, COPD, Dementia, Neuropathy Reviewed History: Yes Social History Home: Single Level Current Living Status: Alone Entry Into Home: Stairs With Railing PT Steps Into Home: 2 PT Steps Inside Home: 14 Prior Prior Level of Function SCALE: Activities may be completed with or without assistive devices. 4-Tiiunidjvk-kkrrutt completes the activity by him/herself with no assistance from a helper. 5-Set-up or Clean-up Assistance-helper sets up or cleans up; patient completes activity. [place] assists only prior to or following the activity. 4-Supervision or Touching Assistance-helper provides verbal cues and/or touching/steadying and/or contact guard assistance as patient completes activity. Assistance may be provided throughout the activity or intermittently. 3-Partial/Moderate Assistance-helper does LESS THAN HALF the effort. [place] lifts, holds or supports trunk or limbs, but provides less than half the effort. 2-Substantial/Maximal Assistance-helper does MORE THAN HALF the effort. [place] lifts or holds trunk or limbs and provides more than half the effort. 9-Vxlzctlxm-puzxle does ALL the effort. Patient does none of the effort to complete the activity. Or, the assistance of 2 or more helpers is required for the patient to complete the activity. If activity was not attempted, code reason: 7-Patient Refused. 9-Not Applicable-not attempted and the patient did not perform the activity before the current illness, exacerbation or injury. 10-Not Attempted due to Environmental Limitations-(lack of equipment, weather restraints, etc.). 88-Not Attempted due to Medical Conditions or Safety Concerns. Bed Mobility: 6 Transfers (B,C,W/C): 6 Gait: 6 Stairs: 6 Indoor Mobility (Ambulation): Independent Stairs: Independent Prior Devices Use: Walker PT Evaluation-Current Subjective Patient lying supine in bed upon PT arrival, agreeable to treatment. Rates pain at 0/10 currently. Objective Patient Orientation: Person, Place, Time, Situation Attachments: Oxygen, Suprapubic Catheter, IV ROM/Strength ROM Lower Extremities WFLs bilaterally all planes Strength Lower Extremities 3+/5 bilaterally all planes Sensory Vision: Functional Hearing: Functional Sensation Right Lower Extremit: Intact Sensation Left Lower Extremity: Intact Transfers Roll Left to Right (QC): 4 Sit to Lying (QC): 4 Lying to Sitting/Side of Bed(Q: 4 Sit to Stand (QC): 3 Chair/Ytw-ly-Tbcqm Xfer(QC): 3 Gait Mode of Locomotion: Walk Anticipated Mode of Locomotion: Walk Walk 10 feet (QC): 3 Distance: 20 Gait Assistive Device: FWW Balance Sitting Static: Fair Sitting Dynamic: Fair Standing Static: Fair Standing Dynamic: Poor Assessment/Needs Patient tolerated treatment fair, however O2 declines during activity. No O2 donned upon PT arrival. Sats at 92-4% at rest. Patient performs all bed mobility with SBA and verbal cues. Patient performs all observed transfers with min A. Patient ambulates 20 feet with FWW, with min a at times for balance and verbal cues for posture, safety, progression, and balance. Patient ambulates with forward trunk posture with rounded shoulders, head down position and tends to lean forwards minimally too far on to the FWW. Patient in chair post treatment with all needs met, nursing notified, call light in reach. Rehab Potential: Fair PT Principal Technical Architect Goals Skilled Nursing Goals PT Skilled Nursing Goals Time Frame: Feb 07, 2022 Roll Left & Right (QC): 6 Sit to Lying (QC): 6 Lying-Sitting on Side/Bed(QC): 6 Sit to Stand (QC): 6 Chair/Yjr-et-Rwmem Xfer(QC): 6 Toilet Transfer (QC): 6 Car Transfer (QC): 6 Does the Patient Walk: Yes Walk 10 feet (QC): 6 Walk 50ft with 2 Turns (QC): 6 Walk 150 ft (QC): 6 1 Step (curb) (QC): 6 PT Plan Problem List Problem List: Activity Tolerance, Functional Strength, Safety, Balance, Gait, Transfer, Bed Mobility, ROM Treatment/Plan Treatment Plan: Continue Plan of Care Treatment Plan: Bed Mobility, Education, Functional Activity Molly, Functional Strength, Group Therapy, Gait, Safety, Therapeutic Exercise, Transfers Treatment Duration: Feb 13, 2022 Frequency: 6 times per week Estimated Hrs Per Day: .25 hour per day Patient and/or Family Agrees t: Yes Safety Risks/Education Patient Education: Gait Training, Transfer Techniques Teaching Recipient: Patient Teaching Methods: Demonstration, Discussion Response to Teaching: Verbalize Understanding, Return Demonstration Discharge Recommendations Target Placement Home with A as needed. Time/GCodes Time In: 1455 Time Out: 1520 Total Billed Treatment Time: 25 Total Billed Treatment Visit, Michele Oconnell JOHN A PT Jan 24, 2022 15:28
--- NOTE | 2022-01-24 15:52 | Occupational Therapy Eval ---
OT Evaluation-General/PLF Medical Diagnosis Admission Date Jan 20, 2022 at 22:40 Medical Diagnosis: Shortness of breath, sepsis due to Pnemonia Onset Date: Jan 23, 2022 Therapy Diagnosis Therapy Diagnosis: decreased ADL status Height/Weight Height (Feet): 6 Height (Inches): 2.00 Weight (Pounds): 186 Precautions Precautions/Isolations: Fall Prevention, Standard Precautions Referral Physician: Dr. Segura Referral Reason: Evaluation/Treatment Medical History Pertinent Medical History: Atrial Fib, COPD, Dementia, Neuropathy Additional Medical History COPD Currently Using CPAP: No Currently Using BIPAP: No Atrial Fibrillation, Hypertension Renal Failure Current History ED from [facility] due to respiratory distress, lethargy, weakness Social History Home: Care Home ADL-Prior Level of Function SCALE: Activities may be completed with or without assistive devices. 8-Uznmjaqeyv-cjzibht completes the activity by him/herself with no assistance from a helper. 5-Set-up or Clean-up Assistance-helper sets up or cleans up; patient completes activity. [place] assists only prior to or following the activity. 4-Supervision or Touching Assistance-helper provides verbal cues and/or touching/steadying and/or contact guard assistance as patient completes activity. Assistance may be provided throughout the activity or intermittently. 3-Partial/Moderate Assistance-helper does LESS THAN HALF the effort. [place] lifts, holds or supports trunk or limbs, but provides less than half the effort. 2-Substantial/Maximal Assistance-helper does MORE THAN HALF the effort. [place] lifts or holds trunk or limbs and provides more than half the effort. 2-Useoqkvfh-izcqov does ALL the effort. Patient does none of the effort to complete the activity. Or, the assistance of 2 or more helpers is required for the patient to complete the activity. If activity was not attempted, code reason: 7-Patient Refused. 9-Not Applicable-not attempted and the patient did not perform the activity before the current illness, exacerbation or injury. 10-Not Attempted due to Environmental Limitations-(lack of equipment, weather restraints, etc.). 88-Not Attempted due to Medical Conditions or Safety Concerns. ADL PLOF Comments Pt reports requiring walker for functional mobility at PLOF. He is able to don a shirt, requires assistance with L sock/shoe, and threading LLE into pants. Pt reports requiring some assistance with showering. Self Care: Needed Some Help Functional Cognition: Needed Some Help OT Current Status Subjective Pt in bed, agreeable to OT Tx Mental Status/Objective Patient Orientation: Person, Confused Attachments: Suprapubic Catheter Current Hand Dominance: Right Upper Extremity ROM WFL, BUE shoulder flexion to approx 140 degrees Upper Extremity Coordination WFL Upper Extremity Sensation WFL Upper Extremity Strength grossly 3/5 ADL-Treatment Eating (QC): 3 (Per nursing report) Lower Body Dressing (QC): 3 (Assistance to thread LLE, pt able to thread R and complete pant hike) On/Off Footwear (QC): 2 (Pt requires total assistance with L, max A R) Other Treatments Pt in bed, agreeable to OT Tx. Pt provided information about PLOF, his conversation was difficult to follow as he would start talking about NH but then switch and talk about his house which he hasn't been to for ~1 year. Pt participated in UE scree, transferred to EOB with SBA. Pt donned LE clothing as outlined above. Min A for sit to/from stand transfer. O2 saturation dropped to low 80%s during tx, with cues for pursed lip breathing, pt's O2 increased to 90%'s within 15 seconds. Pt transferred supine, SBA. Post tx, pt in bed, call light in reach and all needs met. Education OT Patient Education: Correct positioning, Energy conservation, Modified ADL techniques, Progress toward Goal/Update tx plan, Purpose of tx/functional activities, Rehab process Teaching Recipient: Patient Teaching Methods: Discussion Response to Teaching: Verbalize Understanding OT Fdc Goals Fdc Goals Time Frame: Feb 07, 2022 Eating (QC): 5 Oral Hygiene (QC): 5 Toileting Hygiene (QC): 4 Shower/Bathe Self (QC): 3 Upper Body Dressing (QC): 4 Lower Body Dressing (QC): 4 On/Off Footwear (QC): 3 Additional Goals: 1-Demonstrate ADL Tasks, 2-Verbalize Understanding, 3- ImproveStrength/Molly 1=Demonstrate adherence to instructed precautions during ADL tasks. 2=Patient will verbalize/demonstrate understanding of assistive devices/modifications for ADL. 3=Patient will improve strength/tolerance for activity to enable patient to perform ADL's. OT Education/Plan Problem List/Assessment Assessment: Decreased Activ Tolerance, Decreased Safety Aware, Decreased UE Strength, Impaired Cognition, Impaired Funct Balance, Impaired I ADL's, Impaired Self-Care Skills Discharge Recommendations Plan/Recommendations: Continue POC Therapy Discharge Recommendati: Post Acute OT (SNF) Treatment Plan/Plan of Care Patient would benefit from OT for education, treatment and training to promote independence in ADL's, mobility, safety and/or upper extremity function for ADL's. Plan of Care: ADL Retraining, Functional Mobility, UE Funct Exercise/Act Treatment Duration: Feb 07, 2022 Frequency: 3 times per week (3-5 times per week) Estimated Hrs Per Day: .25 hour per day Rehab Potential: Fair Time/GCodes Start Time: 15:26 Stop Time: 15:44 Total Time Billed (hr/min): 18 Billed Treatment Time 1, YULISSA ADORNO OT Jan 24, 2022 15:52
--- NOTE | 2022-01-24 18:14 | Progress Note - Cardiology ---
Cardiology SOAP Progress Note Subjective: Gen weakness and malaise No cp or shortness of breath No recent palp No n/v/d Objective: I&O/Vital Signs 01/24/22 01/24/22 01/24/22 01/24/22 07:00 07:00 07:40 08:00 Temp 36.3 Pulse 77 85 79 Resp 24 24 B/P (MAP) 154/110 135/89 Pulse Ox 92 91 O2 Delivery Room Air Room Air 01/24/22 01/24/22 01/24/22 01/24/22 08:14 08:15 09:00 10:00 Pulse 84 83 63 Resp 24 20 B/P (MAP) 156/81 136/87 Pulse Ox 96 94 92 O2 Delivery Room Air Room Air Room Air 01/24/22 01/24/22 01/24/22 01/24/22 11:00 11:44 12:00 12:00 Temp 36.3 Pulse 61 54 Resp 14 16 B/P (MAP) 148/81 134/79 Pulse Ox 93 91 94 O2 Delivery Room Air Room Air Room Air 01/24/22 01/24/22 01/24/22 01/24/22 12:39 13:00 14:00 15:00 Pulse 54 60 53 65 Resp 23 27 26 B/P (MAP) 133/105 138/80 126/80 Pulse Ox 94 93 O2 Delivery Room Air Room Air Room Air 01/24/22 01/24/22 01/24/22 01/24/22 15:48 16:00 17:00 18:00 Pulse 55 62 60 Resp 26 B/P (MAP) 150/88 155/104 161/103 Pulse Ox 96 93 91 92 O2 Delivery Room Air Room Air Room Air Room Air 01/24/22 00:00 Intake Total 690 ml Output Total 1075 ml Balance -385 ml Weight (Pounds): 186 Weight (Calculated Kilograms): 81.764352 Constitutional: AAO x 3, well-developed, well-nourished Respiratory: No accessory muscle use, No respiratory distress; chest expansion is symmetric, chest is bilaterally symmetric, lungs clear to auscultation Cardiovascular: regular rate-rhythm; No JVD; S1 and S2 Gastrointestional: No tender; soft, round, audible bowel sounds Extremities: no lower extremity edema bilateral Neurologic/Psychiatric: grossly intact (movs all extremities) Skin: No rash on exposed areas, No ulcerations on exposed areas Results/Procedures: Labs Laboratory Tests 01/24/22 04:44: White Blood Count 13.1H, Red Blood Count 3.66L, Hemoglobin 11.1L, Hematocrit 34L , Mean Corpuscular Volume 92, Mean Corpuscular Hemoglobin 30, Mean Corpuscular Hemoglobin Concent 33, Red Cell Distribution Width 13.2, Platelet Count 254, Mean Platelet Volume 9.9, Immature Granulocyte % (Auto) 1, Neutrophils (%) (Auto) 73, Lymphocytes (%) (Auto) 15, Monocytes (%) (Auto) 10, Eosinophils (%) (Auto) 1, Basophils (%) (Auto) 0, Neutrophils # (Auto) 9.6H, Lymphocytes # (Auto) 1.9, Monocytes # (Auto) 1.3H, Eosinophils # (Auto) 0.1, Basophils # (Auto) 0.0, Immature Granulocyte # (Auto) 0.1, Sodium Level 134L, Potassium Level 4.1, Chloride Level 98, Carbon Dioxide Level 26, Anion Gap 10, Blood Urea Nitrogen 21H, Creatinine 1.03, Estimat Glomerular Filtration Rate 73, BUN/Creatinine Ratio 20, Glucose Level 84, Calcium Level 8.8, Corrected Calcium 9.6, Phosphorus Level 2.0L, Magnesium Level 1.8, Total Bilirubin 0.4, Aspartate Amino Transf (AST/SGOT) 20, Alanine Aminotransferase (ALT/SGPT) 27, Alkaline Phosphatase 80, Total Protein 6.2L, Albumin 3.0L Microbiology 01/21/22 Urine Culture - Preliminary, Resulted Pseudomonas aeruginosa 01/21/22 MRSA Screen - Final, Complete 01/20/22 Blood Culture - Preliminary, Resulted No growth Laboratory Tests 01/23/22 04:55 01/24/22 04:44 A/P: Assessment: Pneumonia - improved - managed by medical services Sepsis, secondary to pneumonia - improved Acute on chronic exacerbation of COPD, history of oxygen dependence - clinically improved Paroxysmal atrial fibrillation, had 2 episodes of atrial fibrillation in January 2021, admitted in November 2021 with atrial fibrillation. - Failed amiodarone treatment, treated with sotalol (dose recently increased) - Currently in a-fib with controlled rate - [id number] score of 2, yearly risk of stroke without oral anticoagulation is 2.2%. Maintained on aspirin and Eliquis 2.5 mg twice daily - Lexiscan stress test was done in November [address] Roque showing no significant ischemia or infarction, ejection fraction 65% - Echocardiogram was done on January 22, [address] Roque showing normal LV size with EF 50 to 55%, PA pressure 25 mmHg. History of labile hypotension - episode of borderline hypotension - currently controlled History of left hip fracture - underwent surgical repair with Dr. Morrison on February 01, 2021 then repeat x-ray showed possible migration, referred to Dr. Hall, had to have redo surgery with different hardware and recovering better, using a walker History of renal insufficiency - improved Plan: I reviewed his records I interviewed and examined him Given mild increase in QTc today, we have reduced the dose of sotalol to 40 bid. Continue to monitor consulting services manager has been consulted by medical services to discuss discharge placement (pt does not want to return to [facility]) EPI SMITH MD FACP FAC CCDS Jan 24, 2022 18:14
--- NOTE | 2022-01-24 20:14 | Progress Note - Hospitalist ---
Subjective HPI/CC On Admission Date Seen by Provider: Jan 24, 2022 Time Seen by Provider: 09:05 Kaiser Pham is an 81 year old male with PMH AFib, COPD, suprapubic catheter, who presented with shortness of breath. He denies cough. He denies fever. He is feeling better upon my exam. He denies chest pain. He denies abdominal pain, nausea, vomiting, and diarrhea. Subjective/Events-last exam He is doing well. He denies shortness of breath. He has no complaints. Objective Exam Vital Signs Vital Signs Date Time Temp Pulse Resp B/P (MAP) Pulse Ox O2 Delivery O2 Flow Rate FiO2 01/24/22 19:29 94 Room Air 01/24/22 18:00 60 161/103 01/24/22 16:00 26 01/24/22 11:44 36.3 01/24/22 04:00 1.00 01/21/22 19:15 25 Capillary Refill : Less Than 3 Seconds General Appearance: No Apparent Distress, WD/WN Respiratory: Lungs Clear, No Respiratory Distress Cardiovascular: Regular Rate, Rhythm, No Murmur Gastrointestinal: Normal Bowel Sounds, Soft Genital/Rectal: Normal Vaginal Exam Extremity: Normal Inspection, No Pedal Edema Neurologic/Psychiatric: Alert, Normal Mood/Affect Results/Procedures Lab Laboratory Tests 01/24/22 04:44 Patient resulted labs reviewed. Imaging: Reviewed Imaging Report Assessment/Plan Assessment and Plan Assess & Plan/Chief Complaint Pneumonia Acute respiratory failure due to hypoxia Continue Meropenem Oxygen requirements improving, nearly resolved TeleICU following AFib with RVR Sotalol decreased due to prolonging QTc Continue Eliquis Cardiology following COPD Dementia Continue home meds Debility PT/OT Planning to discharge to [facility], pending approval MERVIN on CKD, resolved Sepsis, resolved Diagnosis/Problems Diagnosis/Problems (1) Sepsis Status: Acute (2) PNA (pneumonia) Status: Acute (3) Acute respiratory failure with hypoxia Status: Acute (4) Acute on chronic kidney failure Status: Acute (5) Atrial fibrillation with RVR Status: Acute NIKO BROWN MD Jan 24, 2022 20:14
[2022-01-24] MEDS: MELATONIN 3 MG TABLET PO SCH (22:02)
[2022-01-25] MEDS: MEROPENEM 500 MG/NS 100 ML IVPB IV SCH ×4 (01:11→09:34)
[2022-01-25 05:31] LABS: BASOPHILS % (AUTO) 0 % (0-10); EOSINOPHILS # (AUTO) 0.4 10^3/uL (0.0-0.3); EOSINOPHILS % (AUTO) 4 % (0-10); HEMATOCRIT 33 % (40-54); HEMOGLOBIN 10.9 g/dL (13.3-17.7); LYMPHOCYTES # (AUTO) 1.9 10^3/uL (1.0-4.0); LYMPHOCYTES % (AUTO) 18 % (12-44); MEAN CORPUSCULAR HEMOGLOBIN 30 pg (25-34); MEAN CORPUSCULAR HGB CONC 33 g/dL (32-36); MEAN CORPUSCULAR VOLUME 92 fL (80-99); MEAN PLATELET VOLUME 9.8 fL (9.0-12.2); MONOCYTES # (AUTO) 1.2 10^3/uL (0.0-1.0); MONOCYTES % (AUTO) 11 % (0-12); NEUTROPHILS % (AUTO) 65 % (42-75); PLATELET COUNT 259 10^3/uL (130-400); WHITE BLOOD COUNT 10.8 10^3/uL (4.3-11.0)
[2022-01-25 05:38] LABS: ALBUMIN 3.1 GM/DL (3.2-4.5)
[2022-01-25 05:39] LABS: CALCIUM 8.9 MG/DL (8.5-10.1)
[2022-01-25 05:40] LABS: TOTAL PROTEIN 6.2 GM/DL (6.4-8.2)
[2022-01-25 05:42] LABS: BILIRUBIN,TOTAL 0.5 MG/DL (0.1-1.0)
[2022-01-25 05:44] LABS: CREATININE SERUM 1.08 MG/DL (0.60-1.30); PHOSPHORUS 2.9 MG/DL (2.3-4.7)
[2022-01-25 05:47] LABS: MAGNESIUM 1.7 MG/DL (1.6-2.4)
[2022-01-25] MEDS: KCL 20 MEQ TAB (K-DUR) PO SCH (06:03)
[2022-01-25] MEDS: MAGNESIUM 1 GM/100 ML IVPB 100 ML IV SCH (06:03)
[2022-01-25] MEDS: POTASSIUM CL 10MEQ/50ML IVPB 50 ML IV SCH (06:03)
[2022-01-25] MEDS: RT--FLUTICASONE/SALMETEROL 113-14 (AIRDUO RespiCLICK) IH SCH ×2 (07:21→19:37)
[2022-01-25] MEDS: RT-ALBUTEROL/IPRATROPIUM 3 ML (DUONEB) VIAL INH SCH ×4 (07:21→19:36)
[2022-01-25] MEDS: DOCUSATE SODIUM 100 MG (COLACE) CAP PO SCH (09:33)
[2022-01-25] MEDS: SOTALOL 80 MG (BETAPACE) TAB PO SCH ×2 (09:33→22:04)
[2022-01-25] MEDS: guaiFENesin (MUCINEX) 600 MG TAB PO SCH ×2 (09:33→22:04)
[2022-01-25] MEDS: ASPIRIN E.C. 81 MG (ECOTRIN) TAB PO SCH ×2 (09:34→22:04)
[2022-01-25] MEDS: PANTOPRAZOLE 40 MG (PROTONIX) TAB PO SCH (09:34)
[2022-01-25] MEDS: VENlafaxine XR 75 MG (EFFEXOR XR) CAP PO SCH (09:34)
[2022-01-25] MEDS: APIXABAN 2.5 MG (ELIQUIS) TABLET PO SCH ×2 (09:34→22:05)
[2022-01-25] MEDS: GABAPENTIN 300 MG (NEURONTIN) CAP PO SCH (09:34)
--- NOTE | 2022-01-25 09:35 | Physical Therapy Daily Note ---
PT Daily Note-Current Subjective Patient very agreeable to participate with PT. Mental Status Patient Orientation: Normal For Age Attachments: Oxygen (3L with activity), [place] Catheter Transfers SCALE: Activities may be completed with or without assistive devices. 4-Iukgbaigim-ljcreth completes the activity by him/herself with no assistance from a helper. 5-Set-up or Clean-up Assistance-helper sets up or cleans up; patient completes activity. [place] assists only prior to or following the activity. 4-Supervision or Touching Assistance-helper provides verbal cues and/or touching/steadying and/or contact guard assistance as patient completes activity. Assistance may be provided throughout the activity or intermittently. 3-Partial/Moderate Assistance-helper does LESS THAN HALF the effort. [place] lifts, holds or supports trunk or limbs, but provides less than half the effort. 2-Substantial/Maximal Assistance-helper does MORE THAN HALF the effort. [place] lifts or holds trunk or limbs and provides more than half the effort. 3-Ojkfbpmda-kkrqqc does ALL the effort. Patient does none of the effort to complete the activity. Or, the assistance of 2 or more helpers is required for the patient to complete the activity. If activity was not attempted, code reason: 7-Patient Refused. 9-Not Applicable-not attempted and the patient did not perform the activity before the current illness, exacerbation or injury. 10-Not Attempted due to Environmental Limitations-(lack of equipment, weather restraints, etc.). 88-Not Attempted due to Medical Conditions or Safety Concerns. Sit to Stand (QC): 4 Weight Bearing Right Lower Extremity: Right Full Weight Bearing Left Lower Extremity: Left Full Weight Bearing Gait Training Distance: 225' Walk 10 feet (QC): 4 Walk 50 ft with 2 Turns(QC): 4 Walk 150 ft (QC): 4 Gait Assistive Device: FWW flexed trunk and bilateral knee posture with functional gait sequence Assessment Patient SAO2 remains >90% with activity on 3L O2 NC. Continued to increase activity as tolerated by patient. PT Fpc Goals Sql Report Writer Goals PT Sql Report Writer Goals Time Frame: Feb 07, 2022 Roll Left & Right (QC): 6 Sit to Lying (QC): 6 Lying-Sitting on Side/Bed(QC): 6 Sit to Stand (QC): 6 Chair/Gti-fd-Oxfjm Xfer(QC): 6 Toilet Transfer (QC): 6 Car Transfer (QC): 6 Does the Patient Walk: Yes Walk 10 feet (QC): 6 Walk 50ft with 2 Turns (QC): 6 Walk 150 ft (QC): 6 1 Step (curb) (QC): 6 PT Plan Treatment/Plan Treatment Plan: Continue Plan of Care Treatment Plan: Bed Mobility, Education, Functional Activity Molly, Functional Strength, Group Therapy, Gait, Safety, Therapeutic Exercise, Transfers Treatment Duration: Feb 13, 2022 Frequency: 6 times per week Estimated Hrs Per Day: .25 hour per day Patient and/or Family Agrees t: Yes Time/GCodes Time In: 735 Time Out: 745 Total Billed Treatment Time: 10 Total Billed Treatment 1 visit FA 10 min SHABBIR HOWARD PT Jan 25, 2022 09:35
--- NOTE | 2022-01-25 10:20 | Tele-ICU Progress Note ---
Subjective Date Seen by a Provider: Jan 25, 2022 Time Seen by a Provider: 10:17 Subjective/Events-last exam Available chart/vitals/labs/images reviewed. Video assessment done using telemetry ICU camera, rest of exam as per RN. Discussion with the RN, exam as per RN. Hospital course Patient today resting comfortably in the bedside chair. He is in no acute distress. He is on room air. Currently receiving sotalol and being monitored in the ICU for his arrhythmia. Sepsis Event Evaluation Height, Weight, BMI Height: 6'2.00" Weight: 186lbs. oz. 81.640462tz; 24.50 BMI Method: Exam Exam Patient acknowledged, consented, and participated in this virtual visit which was conducted using real time audio/video Vital Signs Date Time Temp Pulse Resp B/P (MAP) Pulse Ox O2 Delivery O2 Flow Rate FiO2 01/25/22 10:00 53 17 132/72 92 Nasal Cannula 2.00 01/25/22 09:33 60 01/25/22 09:00 56 27 108/54 97 Nasal Cannula 2.00 01/25/22 08:00 52 20 135/111 92 Nasal Cannula 2.00 01/25/22 08:00 36.1 01/25/22 08:00 94 Room Air 01/25/22 07:23 94 Room Air 01/25/22 07:22 94 Room Air 01/25/22 07:00 50 01/25/22 07:00 51 20 140/106 92 Nasal Cannula 2.00 01/25/22 06:00 46 150/85 96 Nasal Cannula 2.00 01/25/22 05:00 48 147/81 96 Nasal Cannula 2.00 01/25/22 04:00 94 Nasal Cannula 2.00 01/25/22 04:00 46 149/76 97 Nasal Cannula 2.00 01/25/22 03:00 52 138/87 97 Nasal Cannula 2.00 01/25/22 02:00 61 96 Nasal Cannula 2.00 01/25/22 01:29 50 01/25/22 01:00 50 150/75 95 Nasal Cannula 2.00 01/25/22 01:00 51 01/25/22 00:00 36.6 01/25/22 00:00 56 147/78 95 Nasal Cannula 2.00 01/24/22 23:59 94 Nasal Cannula 2.00 01/24/22 23:29 52 01/24/22 23:00 54 146/78 95 Nasal Cannula 2.00 01/24/22 22:00 55 135/78 96 Nasal Cannula 2.00 01/24/22 21:57 Nasal Cannula 2.00 01/24/22 21:00 62 122/86 90 Room Air 01/24/22 20:40 36.3 01/24/22 20:00 93 Room Air 01/24/22 20:00 62 145/74 91 Room Air 01/24/22 19:29 94 Room Air 01/24/22 19:00 58 144/88 91 Room Air 01/24/22 19:00 60 01/24/22 18:00 60 161/103 92 Room Air 01/24/22 17:00 62 155/104 91 Room Air 01/24/22 16:00 55 26 150/88 93 Room Air 01/24/22 15:48 96 Room Air 01/24/22 15:00 65 26 126/80 93 Room Air 01/24/22 14:00 53 27 138/80 Room Air 01/24/22 13:00 60 23 133/105 94 Room Air 01/24/22 12:39 54 01/24/22 12:00 94 Room Air 01/24/22 12:00 54 16 134/79 91 Room Air 01/24/22 11:44 36.3 01/24/22 11:00 61 14 148/81 93 Room Air I & O 01/25/22 07:00 Intake Total 1200 ml Output Total 1900 ml Balance -700 ml Height & Weight Height: 6'2.00" Weight: 186lbs. oz. 81.668715zq; 24.50 BMI Method: General Appearance: No Apparent Distress, WD/WN HEENT: PERRL/EOMI, Pharynx Normal Neck: Normal Inspection, Supple Respiratory: Lungs Clear, No Respiratory Distress Cardiovascular: Regular Rate, Rhythm, No Murmur Capillary Refill: Less Than 3 Seconds Peripheral Pulses: 1+ Dorsalis Pedis (R), 1+ Left Dors-Pedis (L) Gastrointestinal: non tender, soft Extremity: Normal Inspection, No Pedal Edema Neurologic/Psychiatric: Alert, Normal Mood/Affect Skin: Normal Color, Warm/Dry Results Lab Laboratory Tests 01/24/22 04:44 01/25/22 04:45 Assessment/Plan Assessment/Plan . Acute respiratory failure with pneumonia significantly improved. Currently on room air. He is off steroids. 2. Sepsis significantly improved and he is off the IV fluids and pressors. 3. Left lower lobe pneumonia. Continue oral antibiotics per primary care. 4. UTI with Pseudomonas aeruginosa secondary to suprapubic catheter. Continue antibiotics per primary care. 5. Acute and chronic kidney disease Clinically improving. 6. Paroxysmal atrial fibrillation. Rate controlled and on sotolol ,apixaban On Eliquis. 7. COPD clinically stable. 8. Anemia stable. Critical Care: Critically Ill Patient Time spent with patient (mins): 15 FESTUS VIVEROS MD Jan 25, 2022 10:20
--- NOTE | 2022-01-25 12:52 | Progress Note - Hospitalist ---
Subjective HPI/CC On Admission Date Seen by Provider: Jan 25, 2022 Kaiser Pham is an 81 year old male with PMH AFib, COPD, suprapubic catheter, who presented with shortness of breath. He denies cough. He denies fever. He is feeling better upon my exam. He denies chest pain. He denies abdominal pain, nausea, vomiting, and diarrhea. Subjective/Events-last exam Patient reports doing well. No complaints. Objective Exam Vital Signs Vital Signs Date Time Temp Pulse Resp B/P (MAP) Pulse Ox O2 Delivery O2 Flow Rate FiO2 01/25/22 12:00 58 18 94 Nasal Cannula 2.00 01/25/22 08:00 36.1 01/21/22 19:15 25 Capillary Refill : Less Than 3 Seconds General Appearance: No Apparent Distress, Chronically ill Respiratory: Lungs Clear, No Respiratory Distress Cardiovascular: Regular Rate, Rhythm, No Murmur Neurologic/Psychiatric: Alert, Oriented x3 Results/Procedures Lab Laboratory Tests 01/25/22 04:45 Patient resulted labs reviewed. Imaging: Reviewed Imaging Report Assessment/Plan Assessment and Plan Assess & Plan/Chief Complaint Pneumonia Acute respiratory failure due to hypoxia Cultures show Pseudomonas with indeterminant sensitivity to Merrem, switch to Cefepime TeleICU following AFib with RVR Sotalol decreased due to prolonging QTc Continue Eliquis Cardiology following Can transfer out of ICU when ok with cardiology COPD Dementia Continue home meds Debility PT/OT Planning to discharge to [facility], pending approval MERVIN on CKD, resolved Sepsis, resolved Critical Care Critically Ill Patient RICARDO CLIFFORD MD Jan 25, 2022 12:52
[2022-01-25] MEDS: CEFEPIME INJECTION 1,000 MG in NS (IVPB) 50 ML IV SCH ×2 (13:03→18:47)
--- NOTE | 2022-01-25 15:20 | Progress Note - Cardiology ---
Cardiology SOAP Progress Note Subjective: No cp or palp or syncope No shortness of breath at rest Gen malaise present No focal weakness Objective: I&O/Vital Signs 01/25/22 01/25/22 01/25/22 01/25/22 04:00 04:00 05:00 06:00 Pulse 46 48 46 B/P (MAP) 149/76 147/81 150/85 Pulse Ox 97 94 96 96 O2 Delivery Nasal Cannula Nasal Cannula Nasal Cannula Nasal Cannula O2 Flow Rate 2.00 2.00 2.00 2.00 01/25/22 01/25/22 01/25/22 01/25/22 07:00 07:00 07:22 07:23 Pulse 51 50 Resp 20 B/P (MAP) 140/106 Pulse Ox 92 94 94 O2 Delivery Nasal Cannula Room Air Room Air O2 Flow Rate 2.00 01/25/22 01/25/22 01/25/22 01/25/22 08:00 08:00 08:00 09:00 Temp 36.1 Pulse 52 56 Resp 20 27 B/P (MAP) 135/111 108/54 Pulse Ox 94 92 97 O2 Delivery Room Air Nasal Cannula Nasal Cannula O2 Flow Rate 2.00 2.00 01/25/22 01/25/22 01/25/22 01/25/22 09:33 10:00 10:50 11:00 Pulse 60 53 53 Resp 17 20 B/P (MAP) 132/72 129/69 Pulse Ox 92 93 96 O2 Delivery Nasal Cannula Room Air Nasal Cannula O2 Flow Rate 2.00 2.00 01/25/22 01/25/22 01/25/22 01/25/22 11:35 12:00 12:00 12:00 Temp 36.4 Pulse 54 58 Resp 18 B/P (MAP) Pulse Ox 94 96 O2 Delivery Nasal Cannula Room Air O2 Flow Rate 2.00 01/25/22 01/25/22 01/25/22 13:00 13:00 14:22 Pulse 54 56 Resp 19 B/P (MAP) 144/77 Pulse Ox 93 94 O2 Delivery Nasal Cannula Room Air O2 Flow Rate 2.00 01/25/22 00:00 Intake Total 850 ml Output Total 475 ml Balance 375 ml Weight (Pounds): 186 Weight (Calculated Kilograms): 81.800825 Constitutional: AAO x 3, well-developed, well-nourished Respiratory: No accessory muscle use, No respiratory distress; chest expansion is symmetric, chest is bilaterally symmetric, lungs clear to auscultation Cardiovascular: regular rate-rhythm; No JVD; S1 and S2 Gastrointestional: No tender; soft, round, audible bowel sounds Extremities: no lower extremity edema bilateral Neurologic/Psychiatric: grossly intact (movs all extremities) Skin: No rash on exposed areas, No ulcerations on exposed areas Results/Procedures: Labs Laboratory Tests 01/25/22 04:45: White Blood Count 10.8, Red Blood Count 3.64L, Hemoglobin 10.9L, Hematocrit 33L, Mean Corpuscular Volume 92, Mean Corpuscular Hemoglobin 30, Mean Corpuscular Hemoglobin Concent 33, Red Cell Distribution Width 12.8, Platelet Count 259, Mean Platelet Volume 9.8, Immature Granulocyte % (Auto) 2, Neutrophils (%) (Auto) 65, Lymphocytes (%) (Auto) 18, Monocytes (%) (Auto) 11, Eosinophils (%) (Auto) 4, Basophils (%) (Auto) 0, Neutrophils # (Auto) 7.0, Lymphocytes # (Auto) 1.9, Monocytes # (Auto) 1.2H, Eosinophils # (Auto) 0.4H, Basophils # (Auto) 0.0, Immature Granulocyte # (Auto) 0.3H, Sodium Level 130L, Potassium Level 4.0, Chloride Level 94L, Carbon Dioxide Level 26, Anion Gap 10, Blood Urea Nitrogen 21H, Creatinine 1.08, Estimat Glomerular Filtration Rate 69, BUN/Creatinine Ratio 19, Glucose Level 91, Calcium Level 8.9, Corrected Calcium 9.6, Phosphorus Level 2.9, Magnesium Level 1.7, Total Bilirubin 0.5, Aspartate Amino Transf (AST/SGOT) 16, Alanine Aminotransferase (ALT/SGPT) 22, Alkaline Phosphatase 89, Total Protein 6.2L, Albumin 3.1L Microbiology 01/21/22 Urine Culture - Final, Complete Pseudomonas aeruginosa Pseudomonas aeruginosa#2 See Comments 01/21/22 MRSA Screen - Final, Complete 01/20/22 Blood Culture - Preliminary, Resulted No growth Laboratory Tests 01/24/22 04:44 01/25/22 04:45 A/P: Assessment: Pneumonia - improved - managed by medical services Sepsis, secondary to pneumonia - improved Acute on chronic exacerbation of COPD, history of oxygen dependence - clinically improved Paroxysmal atrial fibrillation, had 2 episodes of atrial fibrillation in January 2021, admitted in November 2021 with atrial fibrillation. - Failed amiodarone treatment, treated with sotalol (dose recently increased) - Currently in a-fib with controlled rate - [id number] score of 2, yearly risk of stroke without oral anticoagulation is 2.2%. Maintained on aspirin and Eliquis 2.5 mg twice daily - Lexiscan stress test was done in November [address] Roque showing no significant ischemia or infarction, ejection fraction 65% - Echocardiogram was done on January 22, [address] Roque showing normal LV size with EF 50 to 55%, PA pressure 25 mmHg. History of labile hypotension - episode of borderline hypotension - currently controlled History of left hip fracture - underwent surgical repair with Dr. Morrison on February 01, 2021 then repeat x-ray showed possible migration, referred to Dr. Hall, had to have redo surgery with different hardware and recovering better, using a walker History of renal insufficiency - improved Plan: Continue current regimen Monitor labs Transfer to floor (from ICU) EPI SMITH MD FACP FAC CCDS Jan 25, 2022 15:20
[2022-01-25] MEDS: MELATONIN 3 MG TABLET PO SCH (22:04)
[2022-01-26] MEDS: CEFEPIME INJECTION 1,000 MG in NS (IVPB) 50 ML IV SCH ×4 (00:53→18:53)
[2022-01-26 05:03] LABS: BASOPHILS # (AUTO) 0.1 10^3/uL (0.0-0.1); BASOPHILS % (AUTO) 0 % (0-10); EOSINOPHILS # (AUTO) 0.7 10^3/uL (0.0-0.3); EOSINOPHILS % (AUTO) 5 % (0-10); HEMATOCRIT 35 % (40-54); HEMOGLOBIN 11.8 g/dL (13.3-17.7); LYMPHOCYTES # (AUTO) 1.2 10^3/uL (1.0-4.0); LYMPHOCYTES % (AUTO) 8 % (12-44); MEAN CORPUSCULAR HEMOGLOBIN 31 pg (25-34); MEAN CORPUSCULAR HGB CONC 34 g/dL (32-36); MEAN CORPUSCULAR VOLUME 92 fL (80-99); MEAN PLATELET VOLUME 9.2 fL (9.0-12.2); MONOCYTES # (AUTO) 1.1 10^3/uL (0.0-1.0); MONOCYTES % (AUTO) 8 % (0-12); NEUTROPHILS # (AUTO) 10.5 10^3/uL (1.8-7.8); NEUTROPHILS % (AUTO) 75 % (42-75); PLATELET COUNT 257 10^3/uL (130-400)
[2022-01-26 05:14] LABS: ALBUMIN 3.2 GM/DL (3.2-4.5)
[2022-01-26 05:15] LABS: POTASSIUM 4.1 MMOL/L (3.6-5.0)
[2022-01-26 05:16] LABS: CALCIUM 8.9 MG/DL (8.5-10.1)
[2022-01-26 05:17] LABS: TOTAL PROTEIN 6.6 GM/DL (6.4-8.2)
[2022-01-26 05:19] LABS: BILIRUBIN,TOTAL 0.6 MG/DL (0.1-1.0)
[2022-01-26 05:20] LABS: PHOSPHORUS 2.7 MG/DL (2.3-4.7)
[2022-01-26 05:21] LABS: CREATININE SERUM 1.11 MG/DL (0.60-1.30)
[2022-01-26 05:23] LABS: MAGNESIUM 1.6 MG/DL (1.6-2.4)
[2022-01-26] MEDS: KCL 20 MEQ TAB (K-DUR) PO SCH (06:10)
[2022-01-26] MEDS: POTASSIUM CL 10MEQ/50ML IVPB 50 ML IV SCH (06:10)
[2022-01-26] MEDS: MAGNESIUM 1 GM/100 ML IVPB 100 ML IV SCH (06:10)
[2022-01-26] MEDS: RT-ALBUTEROL/IPRATROPIUM 3 ML (DUONEB) VIAL INH SCH ×4 (07:00→19:34)
[2022-01-26] MEDS: VENlafaxine XR 75 MG (EFFEXOR XR) CAP PO SCH (07:46)
[2022-01-26] MEDS: guaiFENesin (MUCINEX) 600 MG TAB PO SCH ×2 (09:05→21:18)
[2022-01-26] MEDS: GABAPENTIN 300 MG (NEURONTIN) CAP PO SCH (09:05)
[2022-01-26] MEDS: PANTOPRAZOLE 40 MG (PROTONIX) TAB PO SCH (09:05)
[2022-01-26] MEDS: ASPIRIN E.C. 81 MG (ECOTRIN) TAB PO SCH ×2 (09:05→21:18)
[2022-01-26] MEDS: SOTALOL 80 MG (BETAPACE) TAB PO SCH ×2 (09:06→21:18)
[2022-01-26] MEDS: APIXABAN 2.5 MG (ELIQUIS) TABLET PO SCH ×2 (09:07→21:18)
[2022-01-26] MEDS: DOCUSATE SODIUM 100 MG (COLACE) CAP PO SCH (09:07)
--- NOTE | 2022-01-26 10:18 | Progress Note - Hospitalist ---
Subjective HPI/CC On Admission Date Seen by Provider: Jan 26, 2022 Kaiser Pham is an 81 year old male with PMH AFib, COPD, suprapubic catheter, who presented with shortness of breath. He denies cough. He denies fever. He is feeling better upon my exam. He denies chest pain. He denies abdominal pain, nausea, vomiting, and diarrhea. Subjective/Events-last exam Pt reports feeling ok but somewhat nauseated after eating breakfast. Offered antiemetics and he declines. No other complaints. Objective Exam Vital Signs Vital Signs Date Time Temp Pulse Resp B/P (MAP) Pulse Ox O2 Delivery O2 Flow Rate FiO2 01/26/22 09:06 65 01/26/22 09:00 95 Nasal Cannula 2.00 01/26/22 07:53 36.9 19 159/88 01/21/22 19:15 25 Capillary Refill : Less Than 3 Seconds General Appearance: No Apparent Distress, Chronically ill Respiratory: Lungs Clear, No Respiratory Distress Cardiovascular: Regular Rate, Rhythm, No Murmur Neurologic/Psychiatric: Alert, Oriented x3 Results/Procedures Lab Laboratory Tests 01/26/22 04:53 Patient resulted labs reviewed. Imaging: Reviewed Imaging Report Assessment/Plan Assessment and Plan Assess & Plan/Chief Complaint Pneumonia Acute respiratory failure due to hypoxia Cultures show Pseudomonas with indeterminant sensitivity to Merrem, Continue Cefepime TeleICU following AFib with RVR Sotalol decreased due to prolonging QTc Continue Eliquis Cardiology following Can transfer out of ICU when ok with cardiology COPD Dementia Continue home meds Debility PT/OT Planning to discharge to [facility], pending approval by insurance MERVIN on CKD, resolved Sepsis, resolved Critical Care Critically Ill Patient RICARDO CLIFFORD MD Jan 26, 2022 10:18
[2022-01-26] MEDS: RT--FLUTICASONE/SALMETEROL 113-14 (AIRDUO RespiCLICK) IH SCH ×2 (12:12→19:35)
--- NOTE | 2022-01-26 14:37 | Progress Note - Cardiology ---
Cardiology SOAP Progress Note Objective: I&O/Vital Signs 01/26/22 01/26/22 01/26/22 01/26/22 04:59 07:00 07:53 09:00 Temp 36.4 36.9 Pulse 57 64 62 Resp 18 19 B/P (MAP) 138/72 159/88 Pulse Ox 92 90 95 O2 Delivery Nasal Cannula Nasal Cannula O2 Flow Rate 2.00 2.00 01/26/22 01/26/22 01/26/22 01/26/22 09:06 11:06 12:00 13:00 Temp 36.1 Pulse 65 74 83 79 Resp 22 B/P (MAP) 101/76 Pulse Ox 94 01/26/22 00:00 Intake Total 1200 ml Output Total 1600 ml Balance -400 ml Weight (Pounds): 186 Weight (Calculated Kilograms): 81.564855 Constitutional: AAO x 3, well-developed, well-nourished Respiratory: No accessory muscle use, No respiratory distress; chest expansion is symmetric, chest is bilaterally symmetric, lungs clear to auscultation Cardiovascular: regular rate-rhythm; No JVD; S1 and S2 Gastrointestional: No tender; soft, round, tenderness (mild to mod tenderness to palpation without guarding or rebound), audible bowel sounds Extremities: no lower extremity edema bilateral Neurologic/Psychiatric: other (moves all limbs equally) Skin: No rash on exposed areas, No ulcerations on exposed areas Results/Procedures: Labs Laboratory Tests 01/26/22 04:53: White Blood Count 14.0H, Red Blood Count 3.81L, Hemoglobin 11.8L, Hematocrit 35L , Mean Corpuscular Volume 92, Mean Corpuscular Hemoglobin 31, Mean Corpuscular Hemoglobin Concent 34, Red Cell Distribution Width 12.9, Platelet Count 257, Mean Platelet Volume 9.2, Immature Granulocyte % (Auto) 3, Neutrophils (%) (Auto) 75, Lymphocytes (%) (Auto) 8L, Monocytes (%) (Auto) 8, Eosinophils (%) (Auto) 5, Basophils (%) (Auto) 0, Neutrophils # (Auto) 10.5H, Lymphocytes # (Auto) 1.2, Monocytes # (Auto) 1.1H, Eosinophils # (Auto) 0.7H, Basophils # (Auto) 0.1, Immature Granulocyte # (Auto) 0.4H, Sodium Level 129L, Potassium Level 4.1, Chloride Level 95L, Carbon Dioxide Level 23, Anion Gap 11, Blood Urea Nitrogen 24H, Creatinine 1.11, Estimat Glomerular Filtration Rate 66, BUN/Creatinine Ratio 22, Glucose Level 94, Calcium Level 8.9, Corrected Calcium 9.5, Phosphorus Level 2.7, Magnesium Level 1.6, Total Bilirubin 0.6, Aspartate Amino Transf (AST/SGOT) 14, Alanine Aminotransferase (ALT/SGPT) 16, Alkaline Phosphatase 86, Total Protein 6.6, Albumin 3.2 Microbiology 01/21/22 Urine Culture - Final, Complete Pseudomonas aeruginosa Pseudomonas aeruginosa#2 See Comments 01/21/22 MRSA Screen - Final, Complete 01/20/22 Blood Culture - Final, Complete No growth Laboratory Tests 01/25/22 04:45 01/26/22 04:53 A/P: Assessment: Abd pain of undetermined etiology - managed by the [facility] Pneumonia - improved - managed by Medical services Sepsis, secondary to pneumonia - improved Acute on chronic exacerbation of COPD, history of oxygen dependence - clinically improved Paroxysmal atrial fibrillation, had 2 episodes of atrial fibrillation in January 2021, admitted in November 2021 with atrial fibrillation. - Failed amiodarone treatment, treated with sotalol (dose recently increased) - Currently in a-fib with controlled rate - [id number] score of 2, yearly risk of stroke without oral anticoagulation is 2.2%. Maintained on aspirin and Eliquis 2.5 mg twice daily - Lexiscan stress test was done in November [address] Roque showing no significant ischemia or infarction, ejection fraction 65% - Echocardiogram was done on January 22, [address] Roque showing normal LV size with EF 50 to 55%, PA pressure 25 mmHg. History of labile hypotension - episode of borderline hypotension - currently controlled History of left hip fracture - underwent surgical repair with Dr. Morrison on February 01, 2021 then repeat x-ray showed possible migration, referred to Dr. Hall, had to have redo surgery with different hardware and recovering better, using a walker Suprapubic urinary catheter - managed by the [facility] Plan: Continue current regimen Monitor labs Medical service managing abd pain EPI SMITH MD [facility] CCDS Jan 26, 2022 14:37
[2022-01-26] MEDS: MELATONIN 3 MG TABLET PO SCH (21:18)
[2022-01-27] MEDS: CEFEPIME INJECTION 1,000 MG in NS (IVPB) 50 ML IV SCH ×4 (00:27→18:07)
[2022-01-27] MEDS ORDERED: NS (IVPB) 0 ML ONE (00:39)
[2022-01-27 05:10] LABS: BASOPHILS # (AUTO) 0.1 10^3/uL (0.0-0.1); BASOPHILS % (AUTO) 1 % (0-10); EOSINOPHILS # (AUTO) 0.8 10^3/uL (0.0-0.3); EOSINOPHILS % (AUTO) 7 % (0-10); HEMATOCRIT 34 % (40-54); HEMOGLOBIN 11.1 g/dL (13.3-17.7); LYMPHOCYTES % (AUTO) 9 % (12-44); MEAN CORPUSCULAR HEMOGLOBIN 30 pg (25-34); MEAN CORPUSCULAR HGB CONC 33 g/dL (32-36); MEAN CORPUSCULAR VOLUME 92 fL (80-99); MEAN PLATELET VOLUME 9.4 fL (9.0-12.2); MONOCYTES # (AUTO) 1.2 10^3/uL (0.0-1.0); MONOCYTES % (AUTO) 11 % (0-12); NEUTROPHILS # (AUTO) 7.5 10^3/uL (1.8-7.8); NEUTROPHILS % (AUTO) 68 % (42-75); PLATELET COUNT 232 10^3/uL (130-400)
[2022-01-27 05:27] LABS: ALBUMIN 3.1 GM/DL (3.2-4.5); POTASSIUM 4.1 MMOL/L (3.6-5.0)
[2022-01-27 05:28] LABS: CALCIUM 8.8 MG/DL (8.5-10.1)
[2022-01-27 05:30] LABS: TOTAL PROTEIN 6.2 GM/DL (6.4-8.2)
[2022-01-27 05:31] LABS: BILIRUBIN,TOTAL 0.6 MG/DL (0.1-1.0)
[2022-01-27 05:33] LABS: CREATININE SERUM 1.26 MG/DL (0.60-1.30); PHOSPHORUS 2.9 MG/DL (2.3-4.7)
[2022-01-27 05:36] LABS: MAGNESIUM 1.7 MG/DL (1.6-2.4)
[2022-01-27] MEDS: VENlafaxine XR 75 MG (EFFEXOR XR) CAP PO SCH (06:49)
[2022-01-27] MEDS: RT-ALBUTEROL/IPRATROPIUM 3 ML (DUONEB) VIAL INH SCH ×4 (06:56→18:48)
[2022-01-27] MEDS: RT--FLUTICASONE/SALMETEROL 113-14 (AIRDUO RespiCLICK) IH SCH (07:00)
[2022-01-27] MEDS: POTASSIUM CL 10MEQ/50ML IVPB 50 ML IV SCH (07:23)
[2022-01-27] MEDS: KCL 20 MEQ TAB (K-DUR) PO SCH (07:23)
[2022-01-27] MEDS: MAGNESIUM 1 GM/100 ML IVPB 100 ML IV SCH (07:23)
--- NOTE | 2022-01-27 08:13 | Progress Note - Hospitalist ---
Subjective HPI/CC On Admission Date Seen by Provider: Jan 27, 2022 Kaiser Pham is an 81 year old male with PMH AFib, COPD, suprapubic catheter, who presented with shortness of breath. He denies cough. He denies fever. He is feeling better upon my exam. He denies chest pain. He denies abdominal pain, nausea, vomiting, and diarrhea. Subjective/Events-last exam Pt reports doing well. Abd pain and nausea resolved. States he has been working on his IS and doing well. No complaints. Objective Exam Vital Signs Vital Signs Date Time Temp Pulse Resp B/P (MAP) Pulse Ox O2 Delivery O2 Flow Rate FiO2 01/27/22 07:52 37.0 50 26 121/66 92 Nasal Cannula 2.00 01/21/22 19:15 25 Capillary Refill : Less Than 3 Seconds General Appearance: No Apparent Distress, Chronically ill Respiratory: Lungs Clear, No Respiratory Distress Cardiovascular: Bradycardia Neurologic/Psychiatric: Alert, Oriented x3 Results/Procedures Lab Laboratory Tests 01/27/22 04:59 Patient resulted labs reviewed. Imaging: Reviewed Imaging Report Assessment/Plan Assessment and Plan Assess & Plan/Chief Complaint Pneumonia Acute respiratory failure due to hypoxia Cultures show Pseudomonas with indeterminant sensitivity to Merrem, Continue Cefepime TeleICU following AFib with RVR Sotalol decrease by cardiology, now bradycardiac- management per them Continue Eliquis Cardiology following COPD Dementia Continue home meds Debility PT/OT Planning to discharge to [facility], pending approval by insurance MERVIN on CKD, resolved Sepsis, resolved Critical Care Critically Ill Patient RICARDO CLIFFORD MD Jan 27, 2022 08:13
[2022-01-27] MEDS: GABAPENTIN 300 MG (NEURONTIN) CAP PO SCH (08:18)
[2022-01-27] MEDS: APIXABAN 2.5 MG (ELIQUIS) TABLET PO SCH ×2 (08:18→21:09)
[2022-01-27] MEDS: ASPIRIN E.C. 81 MG (ECOTRIN) TAB PO SCH ×2 (08:18→21:08)
[2022-01-27] MEDS: guaiFENesin (MUCINEX) 600 MG TAB PO SCH ×2 (08:19→21:09)
[2022-01-27] MEDS: PANTOPRAZOLE 40 MG (PROTONIX) TAB PO SCH (08:19)
[2022-01-27] MEDS: DOCUSATE SODIUM 100 MG (COLACE) CAP PO SCH (08:21)
[2022-01-27] MEDS: SOTALOL 80 MG (BETAPACE) TAB PO SCH ×2 (08:43→21:08)
--- NOTE | 2022-01-27 09:37 | Progress Note - Cardiology ---
Cardiology SOAP Progress Note Subjective: No cp or palp or syncope or shortness of breath No n/v/d today Gen weakness and malaise present Objective: I&O/Vital Signs 01/26/22 01/27/22 01/27/22 01/27/22 23:18 00:00 00:14 01:00 Temp 36.2 Pulse 58 48 47 Resp 17 B/P (MAP) 120/59 Pulse Ox 94 O2 Delivery Nasal Cannula O2 Flow Rate 2.00 01/27/22 01/27/22 01/27/22 01/27/22 03:58 04:00 06:35 06:56 Temp 36.1 Pulse 50 48 Resp 19 B/P (MAP) 119/68 Pulse Ox 94 94 O2 Delivery Nasal Cannula Nasal Cannula O2 Flow Rate 2.00 2.00 01/27/22 01/27/22 07:52 08:43 Temp 37.0 Pulse 50 52 Resp 26 B/P (MAP) 121/66 Pulse Ox 92 O2 Delivery Nasal Cannula O2 Flow Rate 2.00 01/27/22 00:00 Intake Total 270 ml Output Total 1400 ml Balance -1130 ml Weight (Pounds): 186 Weight (Calculated Kilograms): 81.348246 Constitutional: AAO x 3, well-developed, well-nourished Respiratory: No accessory muscle use, No respiratory distress; chest expansion is symmetric, chest is bilaterally symmetric, lungs clear to auscultation Cardiovascular: regular rate-rhythm; No JVD; S1 and S2 Gastrointestional: No tender; soft, round, tenderness (mild to mod tenderness to palpation without guarding or rebound), audible bowel sounds Extremities: no lower extremity edema bilateral Neurologic/Psychiatric: other (moves all limbs equally) Skin: No rash on exposed areas, No ulcerations on exposed areas Results/Procedures: Labs Laboratory Tests 01/27/22 04:59: White Blood Count 11.0, Red Blood Count 3.67L, Hemoglobin 11.1L, Hematocrit 34L, Mean Corpuscular Volume 92, Mean Corpuscular Hemoglobin 30, Mean Corpuscular Hemoglobin Concent 33, Red Cell Distribution Width 13.0, Platelet Count 232, Mean Platelet Volume 9.4, Immature Granulocyte % (Auto) 4, Neutrophils (%) (Auto) 68, Lymphocytes (%) (Auto) 9L, Monocytes (%) (Auto) 11, Eosinophils (%) (Auto) 7, Basophils (%) (Auto) 1, Neutrophils # (Auto) 7.5, Lymphocytes # (Auto) 1.0, Monocytes # (Auto) 1.2H, Eosinophils # (Auto) 0.8H, Basophils # (Auto) 0.1, Immature Granulocyte # (Auto) 0.5H, Sodium Level 129L, Potassium Level 4.1, Chloride Level 94L, Carbon Dioxide Level 26, Anion Gap 9, Blood Urea Nitrogen 23H, Creatinine 1.26, Estimat Glomerular Filtration Rate 57, BUN/Creatinine Ratio 18, Glucose Level 85, Calcium Level 8.8, Corrected Calcium 9.5, Phosphorus Level 2.9, Magnesium Level 1.7, Total Bilirubin 0.6, Aspartate Amino Transf (AST/SGOT) 11, Alanine Aminotransferase (ALT/SGPT) 13, Alkaline Phosphatase 73, Total Protein 6.2L, Albumin 3.1L Microbiology 01/21/22 Urine Culture - Final, Complete Pseudomonas aeruginosa Pseudomonas aeruginosa#2 See Comments 01/21/22 MRSA Screen - Final, Complete 01/20/22 Blood Culture - Final, Complete No growth Laboratory Tests 01/26/22 04:53 01/27/22 04:59 A/P: Assessment: Abd pain of undetermined etiology - managed by the [facility] Pneumonia - improved - managed by Medical services Sepsis, secondary to pneumonia - improved Acute on chronic exacerbation of COPD, history of oxygen dependence - clinically improved Paroxysmal atrial fibrillation, had 2 episodes of atrial fibrillation in January 2021, admitted in November 2021 with atrial fibrillation. - Failed amiodarone treatment, treated with sotalol (dose recently increased) - Currently in a-fib with controlled rate - [id number] score of 2, yearly risk of stroke without oral anticoagulation is 2.2%. Maintained on aspirin and Eliquis 2.5 mg twice daily - Lexiscan stress test was done in November [address] Roque showing no significant ischemia or infarction, ejection fraction 65% - Echocardiogram was done on January 22, [address] Roque showing normal LV size with EF 50 to 55%, PA pressure 25 mmHg. History of labile hypotension - episode of borderline hypotension - currently controlled History of left hip fracture - underwent surgical repair with Dr. Morrison on February 01, 2021 then repeat x-ray showed possible migration, referred to Dr. Hall, had to have redo surgery with different hardware and recovering better, using a walker Suprapubic urinary catheter - managed by the Med [facility] Plan: Maintaining sinus rhythm on current dose w/o QT prolongation (has been monitored for several days) Continue current regimen Ok to d/c from cardiac standpoint F/u with Dr Roque in 2 weeks EPI SMITH MD [facility] CCDS Jan 27, 2022 09:36
--- NOTE | 2022-01-27 10:21 | Physical Therapy Daily Note ---
PT Daily Note-Current Subjective Patient agrees to PT. Mental Status Patient Orientation: Confused Attachments: Oxygen, Suprapubic Catheter Transfers SCALE: Activities may be completed with or without assistive devices. 4-Uojnavcbgq-gncwgod completes the activity by him/herself with no assistance from a helper. 5-Set-up or Clean-up Assistance-helper sets up or cleans up; patient completes activity. [place] assists only prior to or following the activity. 4-Supervision or Touching Assistance-helper provides verbal cues and/or touching/steadying and/or contact guard assistance as patient completes activity. Assistance may be provided throughout the activity or intermittently. 3-Partial/Moderate Assistance-helper does LESS THAN HALF the effort. [place] li fts, holds or supports trunk or limbs, but provides less than half the effort. 2-Substantial/Maximal Assistance-helper does MORE THAN HALF the effort. [place] lifts or holds trunk or limbs and provides more than half the effort. 3-Yygbdoxse-kwelqm does ALL the effort. Patient does none of the effort to complete the activity. Or, the assistance of 2 or more helpers is required for the patient to complete the activity. If activity was not attempted, code reason: 7-Patient Refused. 9-Not Applicable-not attempted and the patient did not perform the activity before the current illness, exacerbation or injury. 10-Not Attempted due to Environmental Limitations-(lack of equipment, weather restraints, etc.). 88-Not Attempted due to Medical Conditions or Safety Concerns. Lying to Sitting/Side of Bed(Q: 4 Sit to Stand (QC): 4 Chair/Iup-ou-Vsaby Xfer(QC): 4 Weight Bearing Right Lower Extremity: Right Full Weight Bearing Left Lower Extremity: Left Full Weight Bearing Gait Training Distance: 300' Walk 10 feet (QC): 4 Walk 50 ft with 2 Turns(QC): 4 Walk 150 ft (QC): 4 Gait Assistive Device: FWW functional gait sequence/trunk flexed posture Assessment Patient up in recliner with needs met. SAO2 remains >90% with O2 2L NC in place with all activity. PT [place] Oven Operator Goals Longterm Goals PT Longterm Goals Time Frame: Feb 07, 2022 Roll Left & Right (QC): 6 Sit to Lying (QC): 6 Lying-Sitting on Side/Bed(QC): 6 Sit to Stand (QC): 6 Chair/Gqb-gn-Hvbye Xfer(QC): 6 Toilet Transfer (QC): 6 Car Transfer (QC): 6 Does the Patient Walk: Yes Walk 10 feet (QC): 6 Walk 50ft with 2 Turns (QC): 6 Walk 150 ft (QC): 6 1 Step (curb) (QC): 6 PT Plan Treatment/Plan Treatment Plan: Continue Plan of Care Treatment Plan: Bed Mobility, Education, Functional Activity Molly, Functional Strength, Group Therapy, Gait, Safety, Therapeutic Exercise, Transfers Treatment Duration: Feb 13, 2022 Frequency: 6 times per week Estimated Hrs Per Day: .25 hour per day Patient and/or Family Agrees t: Yes Time/GCodes Time In: 936 Time Out: 950 Total Billed Treatment Time: 14 Total Billed Treatment 1 visit FA 14 min SHABBIR HOWARD PT Jan 27, 2022 10:21
--- NOTE | 2022-01-27 11:50 | Occupational Ther Daily Note ---
OT Current Status-Daily Note Subjective Pt seated in recliner prior to OT tx. Pt slightly confused about purpose of OTs and perseverated on various topics (such as being tested, apologizing for being rude, etc.) throughout tx. Pt agreeable to tx. Mental Status/Objective Patient Orientation: Person, Confused Attachments: [place] Catheter, Oxygen, Telemetry ADL-Treatment Therapy Code Descriptions/Definitions Functional [place] Measure: 0=Not Assessed/NA 4=Minimal Assistance 1=Total Assistance 5=Supervision or Setup 2=Maximal Assistance 6=Modified [place] 3=Moderate Assistance 7=Complete IndependenceSCALE: Activities may be completed with or without assistive devices. 7-Bylbnvcxsk-scbycwk completes the activity by him/herself with no assistance from a helper. 5-Set-up or Clean-up Assistance-helper sets up or cleans up; patient completes activity. [place] assists only prior to or following the activity. 4-Supervision or Touching Assistance-helper provides verbal cues and/or touching/steadying and/or contact guard assistance as patient completes activity. Assistance may be provided throughout the activity or intermittently. 3-Partial/Moderate Assistance-helper does LESS THAN HALF the effort. [place] lifts, holds or supports trunk or limbs, but provides less than half the effort. 2-Substantial/Maximal Assistance-helper does MORE THAN HALF the effort. [place] lifts or holds trunk or limbs and provides more than half the effort. 5-Rhbcpzhcz-mxdjif does ALL the effort. Patient does none of the effort to complete the activity. Or, the assistance of 2 or more helpers is required for the patient to complete the activity. If activity was not attempted, code reason: 7-Patient Refused. 9-Not Applicable-not attempted and the patient did not perform the activity before the current illness, exacerbation or injury. 10-Not Attempted due to Environmental Limitations-(lack of equipment, weather restraints, etc.). 88-Not Attempted due to Medical Conditions or Safety Concerns. Oral Hygiene (QC): 5 (setup at chair) Other Treatment Pt seated in recliner prior to tx. Pt completed oral hygiene with sponge brush seated in recliner. Pt's O2 saturation dropped from 90% to upper 70%s, but sensor on finger loose. OT placed new pulse ox on other hand and pt remained above 90% on 2 L for remainder of tx. Pt participated in UE AROM exercises (x10 reps, 4 exercises), all planes, while seated in recliner. Pt c/o sore buttocks, nurse notified, and pillow placed under L hip/thigh to help alleviate pressure. Pt left in recliner, call light within reach, and all needs met. Education OT Patient Education: Correct positioning, Energy conservation, Exercise program, Modified ADL techniques, Progress toward Goal/Update tx plan, Purpose of tx/functional activities, Rehab process Teaching Recipient: Patient Teaching Methods: Discussion Response to Teaching: Verbalize Understanding OT Back Up Machine Operator Goals Halfway Goals Time Frame: Feb 07, 2022 Eating (QC): 5 Oral Hygiene (QC): 5 Toileting Hygiene (QC): 4 Shower/Bathe Self (QC): 3 Upper Body Dressing (QC): 4 Lower Body Dressing (QC): 4 On/Off Footwear (QC): 3 Additional Goals: 1-Demonstrate ADL Tasks, 2-Verbalize Understanding, 3- ImproveStrength/Molly 1=Demonstrate adherence to instructed precautions during ADL tasks. 2=Patient will verbalize/demonstrate understanding of assistive devices/modifications for ADL. 3=Patient will improve strength/tolerance for activity to enable patient to perform ADL's. OT Education/Plan Problem List/Assessment Assessment: Decreased Activ Tolerance, Decreased Safety Aware, Decreased UE Strength, Impaired Cognition, Impaired Funct Balance, Impaired I ADL's, Impaired Self-Care Skills Discharge Recommendations Plan/Recommendations: Continue POC Treatment Plan/Plan of Care Patient would benefit from OT for education, treatment and training to promote independence in ADL's, mobility, safety and/or upper extremity function for ADL's. Plan of Care: ADL Retraining, Functional Mobility, UE Funct Exercise/Act Treatment Duration: Feb 07, 2022 Frequency: 3 times per week (3-5 times per week) Estimated Hrs Per Day: .25 hour per day Rehab Potential: Fair Time/GCodes Start Time: 11:20 Stop Time: 11:36 Total Time Billed (hr/min): 16 Billed Treatment Time 1, Ex (16') YULISSA SANCHEZ OT Jan 27, 2022 11:50
[2022-01-27] MEDS: MELATONIN 3 MG TABLET PO SCH (21:09)
[2022-01-28] MEDS: CEFEPIME INJECTION 1,000 MG in NS (IVPB) 50 ML IV SCH ×3 (00:32→13:24)
[2022-01-28 05:57] LABS: ALBUMIN 3.1 GM/DL (3.2-4.5); POTASSIUM 4.3 MMOL/L (3.6-5.0)
[2022-01-28 05:58] LABS: CALCIUM 8.9 MG/DL (8.5-10.1)
[2022-01-28 06:00] LABS: TOTAL PROTEIN 6.1 GM/DL (6.4-8.2)
[2022-01-28 06:01] LABS: BASOPHILS % (AUTO) 1 % (0-10); BILIRUBIN,TOTAL 0.4 MG/DL (0.1-1.0); EOSINOPHILS # (AUTO) 0.8 10^3/uL (0.0-0.3); EOSINOPHILS % (AUTO) 9 % (0-10); HEMATOCRIT 32 % (40-54); HEMOGLOBIN 10.7 g/dL (13.3-17.7); LYMPHOCYTES % (AUTO) 12 % (12-44); MEAN CORPUSCULAR HEMOGLOBIN 30 pg (25-34); MEAN CORPUSCULAR HGB CONC 33 g/dL (32-36); MEAN CORPUSCULAR VOLUME 92 fL (80-99); MEAN PLATELET VOLUME 9.5 fL (9.0-12.2); MONOCYTES # (AUTO) 1.3 10^3/uL (0.0-1.0); MONOCYTES % (AUTO) 14 % (0-12); NEUTROPHILS # (AUTO) 5.3 10^3/uL (1.8-7.8); NEUTROPHILS % (AUTO) 60 % (42-75); PLATELET COUNT 233 10^3/uL (130-400); WHITE BLOOD COUNT 8.8 10^3/uL (4.3-11.0)
[2022-01-28 06:03] LABS: CREATININE SERUM 1.32 MG/DL (0.60-1.30); PHOSPHORUS 2.7 MG/DL (2.3-4.7)
[2022-01-28 06:06] LABS: MAGNESIUM 1.8 MG/DL (1.6-2.4)
[2022-01-28] MEDS: POTASSIUM CL 10MEQ/50ML IVPB 50 ML IV SCH (06:11)
[2022-01-28] MEDS: MAGNESIUM 1 GM/100 ML IVPB 100 ML IV SCH (06:11)
[2022-01-28] MEDS: KCL 20 MEQ TAB (K-DUR) PO SCH (06:11)
[2022-01-28] MEDS: VENlafaxine XR 75 MG (EFFEXOR XR) CAP PO SCH (06:19)
[2022-01-28] MEDS: RT-ALBUTEROL/IPRATROPIUM 3 ML (DUONEB) VIAL INH SCH ×2 (07:20→11:44)
[2022-01-28 08:13] VITALS: BP 107/63
[2022-01-28] MEDS: guaiFENesin (MUCINEX) 600 MG TAB PO SCH (09:01)
[2022-01-28] MEDS: ASPIRIN E.C. 81 MG (ECOTRIN) TAB PO SCH (09:01)
[2022-01-28] MEDS: SOTALOL 80 MG (BETAPACE) TAB PO SCH (09:02)
[2022-01-28] MEDS: DOCUSATE SODIUM 100 MG (COLACE) CAP PO SCH (09:02)
[2022-01-28] MEDS: APIXABAN 2.5 MG (ELIQUIS) TABLET PO SCH (09:02)
[2022-01-28] MEDS: GABAPENTIN 300 MG (NEURONTIN) CAP PO SCH (09:02)
[2022-01-28] MEDS: PANTOPRAZOLE 40 MG (PROTONIX) TAB PO SCH (09:02)
--- NOTE | 2022-01-28 09:53 | Discharge Inst-Skilled Nursing ---
Discharge Inst-Skilled NF Chief Complaint Kaiser Pham is an 81 year old male with PMH AFib, COPD, suprapubic catheter, who presented with shortness of breath. He denies cough. He denies fever. He is feeling better upon my exam. He denies chest pain. He denies abdominal pain, nausea, vomiting, and diarrhea. Consult/Follow Up/Orders Follow Up Appt.: [address] Nichols Skilled NF Admit to: [facility] Certification ([facility]) I certify that SNF services are required to be given on an inpatient basis because of the above named patient's need for senior care care on a continuing basis for the conditions(s) for which he/she was receiving inpatient hospital services prior to his/her transfer to the SNF. [facility] Facility Order: Nursing Services, [employer] Engineer-Evaluate & Treat, Physical Therapy-Evaluate & Treat Oxygen Delivery Method: Room Air Discharge Diet: Cardiac Diet Daily Activity as Tolerated: Yes Resuscitation Status: Do Not Resuscitate New & Resume Previous Orders Ricardo Clifford Jan 27, 2022 10:39 RICARDO CLIFFORD MD Jan 27, 2022 10:40
--- NOTE | 2022-01-28 09:54 | Discharge Summary ---
Diagnosis/Chief Complaint Date of Admission Jan 20, 2022 at 22:40 Date of Discharge Discharge Date: Jan 28, 2022 Admission Diagnosis Sepsis due to pneumonia Primary Care Erik John MD Discharge Diagnosis (1) Sepsis Status: Acute (2) PNA (pneumonia) Status: Acute (3) Acute respiratory failure with hypoxia Status: Acute (4) Acute on chronic kidney failure Status: Acute (5) Atrial fibrillation with RVR Status: Acute Discharge Summary Procedures/Consulations Cardiology Discharge Physical Exam Allergies: Coded Allergies: No Known Drug Allergies (Unverified , 01/23/12) Vitals & I&Os Vital Signs Date Time Temp Pulse Resp B/P (MAP) Pulse Ox O2 Delivery O2 Flow Rate FiO2 01/28/22 11:44 93 Nasal Cannula 1.00 01/28/22 11:42 36.3 60 18 109/65 (80) General Appearance: No Apparent Distress, Chronically ill Respiratory: Lungs Clear, No Respiratory Distress Cardiovascular: Regular Rate, Rhythm, No Murmur Neurologic/Psychiatric: Alert, Oriented x3 Hospital Course Patient was admitted to the hospital secondary to acute hypoxic respiratory failure due to pneumonia. He was treated with IV antibiotics and was able to be weaned down on his oxygen. He did develop atrial fibrillation with rapid ventricular rate. Cardiology was consulted and made adjustments to his sotalol. His rate was much improved. He was also found to have a urinary tract infection that grew 2 strains of Pseudomonas. Both were sensitive to cefepime but the second strain was resistant to carbapenems. Fortunately there was very little quantity of this in his urine he was deemed appropriate for discharge to skilled facility for continued therapies. He was discharged to [facility]. Labs (last 24 hrs) Laboratory Tests 01/28/22 05:40: White Blood Count 8.8, Red Blood Count 3.52L, Hemoglobin 10.7L, Hematocrit 32L, Mean Corpuscular Volume 92, Mean Corpuscular Hemoglobin 30, Mean Corpuscular Hemoglobin Concent 33, Red Cell Distribution Width 13.1, Platelet Count 233, Mean Platelet Volume 9.5, Immature Granulocyte % (Auto) 5, Neutrophils (%) (Auto) 60, Lymphocytes (%) (Auto) 12, Monocytes (%) (Auto) 14H, Eosinophils (%) (Auto) 9, Basophils (%) (Auto) 1, Neutrophils # (Auto) 5.3, Lymphocytes # (Auto) 1.0, Monocytes # (Auto) 1.3H, Eosinophils # (Auto) 0.8H, Basophils # (Auto) 0.0, Immature Granulocyte # (Auto) 0.4H, Sodium Level 131L, Potassium Level 4.3, Chloride Level 95L, Carbon Dioxide Level 27, Anion Gap 9, Blood Urea Nitrogen 28H, Creatinine 1.32H, Estimat Glomerular Filtration Rate 54, BUN/Creatinine Ratio 21, Glucose Level 93, Calcium Level 8.9, Corrected Calcium 9.6, Phosphorus Level 2.7, Magnesium Level 1.8, Total Bilirubin 0.4, Aspartate Amino Transf (AST/SGOT) 12, Alanine Aminotransferase (ALT/SGPT) 13, Alkaline Phosphatase 68, Total Protein 6.1L, Albumin 3.1L Microbiology 01/21/22 Urine Culture - Final, Complete Pseudomonas aeruginosa Pseudomonas aeruginosa#2 See Comments 01/21/22 MRSA Screen - Final, Complete 01/20/22 Blood Culture - Final, Complete No growth Patient resulted labs reviewed. Pending Labs Laboratory Tests 01/28/22 05:40: White Blood Count 8.8, Red Blood Count 3.52, Hemoglobin 10.7, Hematocrit 32, Mean Corpuscular Volume 92, Mean Corpuscular Hemoglobin 30, Mean Corpuscular Hemoglobin Concent 33, Red Cell Distribution Width 13.1, Platelet Count 233, Mean Platelet Volume 9.5, Immature Granulocyte % (Auto) 5, Neutrophils (%) (Auto) 60, Lymphocytes (%) (Auto) 12, Monocytes (%) (Auto) 14, Eosinophils (%) (Auto) 9, Basophils (%) (Auto) 1, Neutrophils # (Auto) 5.3, Lymphocytes # (Auto) 1.0, Monocytes # (Auto) 1.3, Eosinophils # (Auto) 0.8, Basophils # (Auto) 0.0, Immature Granulocyte # (Auto) 0.4, Sodium Level 131, Potassium Level 4.3, Chloride Level 95, Carbon Dioxide Level 27, Anion Gap 9, Blood Urea Nitrogen 28, Creatinine 1.32, Estimat Glomerular Filtration Rate 54, BUN/Creatinine Ratio 21, Glucose Level 93, Calcium Level 8.9, Corrected Calcium 9.6, Phosphorus Level 2.7, Magnesium Level 1.8, Total Bilirubin 0.4, Aspartate Amino Transf (AST/SGOT) 12, Alanine Aminotransferase (ALT/SGPT) 13, Alkaline Phosphatase 68, Total Protein 6.1, Albumin 3.1 Imaging: Reviewed Imaging Report Discussion & Recommendations Discharge Planning: >30 minutes discharge planning Discharge Home Medications: Active Scripts Active Reported Tussin (Guaifenesin) 100 Mg/5 Ml Liquid 10 Ml PO Q8H PRN Milk of Magnesia (Magnesium Hydroxide) 400 Mg/5 Ml Oral.susp 30 Ml PO Q12H PRN Dulcolax (Bisacodyl) 10 Mg Supp.rect 10 Mg RC DAILY PRN Benadryl Allergy (Diphenhydramine HCl) 25 Mg Tablet 25 Mg PO Q6H PRN Eliquis (Apixaban) 2.5 Mg Tablet 2.5 Mg PO BID Venlafaxine HCl ER (Venlafaxine HCl) 150 Mg Cap.er.24h 150 Mg PO DAILY Sotalol (Sotalol HCl) 80 Mg Tablet 80 Mg PO DAILY HOLD AND NOTIFY PCP FOR SBP <100 OR HR <50 Saline Nasal [employer] (Sodium Chloride) 30 Ml [employer] 2 Sprays NS Q1HR PRN Albuterol Sulfate 2.5 Mg/3 Ml Vial.neb 2.5 Mg INH Q6H PRN Mucinex (Guaifenesin) 600 Mg Tab.er.12h 600 Mg PO BID Dulera 100 Mcg/5 Mcg Inhaler (Mometasone/Formoterol) 13 Gm Hfa.aer.ad 2 Puff INH BID Melatonin 3 Mg Tablet 6 Mg PO HS TAKES 2 (3MG) TABS Neurontin (Gabapentin) 300 Mg Capsule 300 Mg PO DAILY Vitamin B-12 (Cyanocobalamin (Vitamin B-12)) 1,000 Mcg Tablet 1,000 Mcg PO DAILY Cod Liver Oil Softgel (Vit A & D3 in Cod Liver Oil) 1 Each Capsule 2 Each PO DAILY Tramadol HCl 50 Mg Tablet 50 Mg PO Q6H PRN Hydrocodone-Acetamin 5-325 mg (Hydrocodone/Acetaminophen) 1 Each Tablet 1 Ea PO Q4H PRN Senna (Sennosides) 8.6 Mg Tablet 8.6 Mg PO DAILY PRN Tylenol Extra Strength (Acetaminophen) 500 Mg Tablet 1,000 Mg PO Q8H PRN Miralax (Polyethylene Glycol 3350) 17 Gm Powd.pack 17 Gm PO DAILY PRN Docusate Sodium 100 Mg Capsule 100 Mg PO DAILY Aspirin EC (Aspirin) 81 Mg Tablet.dr 81 Mg PO BID Pantoprazole Sodium 40 Mg Tablet.dr 40 Mg PO DAILY Vitamin D3 (Cholecalciferol (Vitamin D3)) 125 Mcg Tablet 125 Mcg PO DAILY Instructions to patient/family Please see electronic discharge instructions given to patient. Copy Copies To 1: ERIK JOHN MD Problem Qualifiers (1) Sepsis: Sepsis type: Pseudomonas Sepsis acute organ dysfunction status: with acute organ dysfunction Severe sepsis acute organ dysfunction type: acute respiratory failure Acute respiratory failure type: with hypoxia Severe sepsis shock status: without septic shock Qualified Codes: A41.52 - Sepsis due to Pseudomonas; R65.20 - Severe sepsis without septic shock; J96.01 - Acute respiratory failure with hypoxia (2) PNA (pneumonia): Pneumonia type: due to unspecified organism Laterality: unspecified laterality Lung location: unspecified part of lung Qualified Codes: J18.9 - Pneumonia, unspecified organism RICARDO CLIFFORD MD Jan 28, 2022 09:54
--- NOTE | 2022-01-28 11:24 | Occupational Ther Daily Note ---
OT Current Status-Daily Note Subjective Pt reclined in bed prior to OT tx. Pt agreeable to tx. Mental Status/Objective Patient Orientation: Person, Confused, Place, Normal For Age Attachments: Gunderson Catheter, IV, Oxygen ADL-Treatment Therapy Code Descriptions/Definitions Functional Dodge Measure: 0=Not Assessed/NA 4=Minimal Assistance 1=Total Assistance 5=Supervision or Setup 2=Maximal Assistance 6=Modified Dodge 3=Moderate Assistance 7=Complete IndependenceSCALE: Activities may be completed with or without assistive devices. 1-Ynigoufdcx-zntwgon completes the activity by him/herself with no assistance from a helper. 5-Set-up or Clean-up Assistance-helper sets up or cleans up; patient completes activity. Independence assists only prior to or following the activity. 4-Supervision or Touching Assistance-helper provides verbal cues and/or touching/steadying and/or contact guard assistance as patient completes activity. Assistance may be provided throughout the activity or intermittently. 3-Partial/Moderate Assistance-helper does LESS THAN HALF the effort. Independence lifts, holds or supports trunk or limbs, but provides less than half the effort. 2-Substantial/Maximal Assistance-helper does MORE THAN HALF the effort. Independence lifts or holds trunk or limbs and provides more than half the effort. 4-Ranyftjdl-ydnfni does ALL the effort. Patient does none of the effort to complete the activity. Or, the assistance of 2 or more helpers is required for the patient to complete the activity. If activity was not attempted, code reason: 7-Patient Refused. 9-Not Applicable-not attempted and the patient did not perform the activity before the current illness, exacerbation or injury. 10-Not Attempted due to Environmental Limitations-(lack of equipment, weather restraints, etc.). 88-Not Attempted due to Medical Conditions or Safety Concerns. Other Treatment Pt reclined in bed prior to OT tx. Pt showed signs of confusion as he talked about returning home to complete rehab, but he will be discharging to the [facility] ~1315 today, per SW. Pt participated in four different UE exercises (15 reps of each exercise), all planes, using a Theraband (yellow--light resistance). Pt educated on the importance of continuing UE exercises to build UE strength and increase IND in ADLs, pt agreed. Post tx, pt left seated in bed, call light in reach, and all needs met. Education OT Patient Education: Correct positioning, Energy conservation, Exercise program, Home exercise program, Modified ADL techniques, Progress toward Goal/Update tx plan, Purpose of tx/functional activities, Rehab process Teaching Recipient: Patient Teaching Methods: Demonstration, Discussion Response to Teaching: Verbalize Understanding, Return Demonstration OT Half-Way Goals Business Relationship Manager Goals Time Frame: Feb 07, 2022 Eating (QC): 5 Oral Hygiene (QC): 5 Toileting Hygiene (QC): 4 Shower/Bathe Self (QC): 3 Upper Body Dressing (QC): 4 Lower Body Dressing (QC): 4 On/Off Footwear (QC): 3 Additional Goals: 1-Demonstrate ADL Tasks, 2-Verbalize Understanding, 3- ImproveStrength/Molly 1=Demonstrate adherence to instructed precautions during ADL tasks. 2=Patient will verbalize/demonstrate understanding of assistive devices/modifications for ADL. 3=Patient will improve strength/tolerance for activity to enable patient to perform ADL's. OT Education/Plan Problem List/Assessment Assessment: Decreased Activ Tolerance, Decreased UE Strength, Impaired I ADL's, Impaired Self-Care Skills Discharge Recommendations Plan/Recommendations: Continue POC Treatment Plan/Plan of Care Patient would benefit from OT for education, treatment and training to promote independence in ADL's, mobility, safety and/or upper extremity function for ADL's. Plan of Care: ADL Retraining, Functional Mobility, UE Funct Exercise/Act Treatment Duration: Feb 07, 2022 Frequency: 3 times per week (3-5 times per week) Estimated Hrs Per Day: .25 hour per day Rehab Potential: Fair Time/GCodes Start Time: 11:00 Stop Time: 11:16 Total Time Billed (hr/min): 16 Billed Treatment Time 1, EX (16') YULISSA SANCHEZ OT Jan 28, 2022 11:24
[2022-01-28 11:42] VITALS: BP 109/65
[2022-01-28] MEDS: RT--FLUTICASONE/SALMETEROL 113-14 (AIRDUO RespiCLICK) IH SCH (11:44)
[2022-01-28 13:41] VITALS: BP 109/65
--- NOTE | 2022-01-28 13:45 | Progress Note - Cardiology ---
Cardiology SOAP Progress Note Subjective: Lying in bed No c/o CP, SOB or palpitations Objective: I&O/Vital Signs 01/28/22 01/28/22 01/28/22 01/28/22 03:56 06:37 07:21 07:38 Temp 36.6 Pulse 53 49 Resp 16 B/P (MAP) 109/56 Pulse Ox 95 93 O2 Delivery Nasal Cannula Nasal Cannula Nasal Cannula O2 Flow Rate 2.00 1.00 1.00 01/28/22 01/28/22 01/28/22 01/28/22 08:13 09:53 11:42 11:44 Temp 36.2 36.3 Pulse 53 60 Resp 18 18 B/P (MAP) 107/63 (78) 109/65 (80) Pulse Ox 96 93 93 O2 Delivery Room Air Room Air Room Air Nasal Cannula O2 Flow Rate 1.00 01/28/22 01/28/22 12:46 13:41 Temp 36.3 Pulse 59 59 Resp 18 B/P (MAP) 109/65 Pulse Ox 93 O2 Delivery Nasal Cannula O2 Flow Rate 1.00 01/28/22 00:00 Intake Total 480 ml Output Total 525 ml Balance -45 ml Weight (Pounds): 186 Weight (Calculated Kilograms): 81.648769 Constitutional: AAO x 3, well-developed, well-nourished Respiratory: No accessory muscle use, No respiratory distress; chest expansion is symmetric, chest is bilaterally symmetric, lungs clear to auscultation Cardiovascular: regular rate-rhythm; No JVD; S1 and S2 Gastrointestional: No tender; soft, round, tenderness (mild to mod tenderness to palpation without guarding or rebound), audible bowel sounds Extremities: no lower extremity edema bilateral Neurologic/Psychiatric: other (moves all limbs equally) Skin: No rash on exposed areas, No ulcerations on exposed areas Results/Procedures: Labs Laboratory Tests 01/28/22 05:40: White Blood Count 8.8, Red Blood Count 3.52L, Hemoglobin 10.7L, Hematocrit 32L, Mean Corpuscular Volume 92, Mean Corpuscular Hemoglobin 30, Mean Corpuscular Hemoglobin Concent 33, Red Cell Distribution Width 13.1, Platelet Count 233, Mean Platelet Volume 9.5, Immature Granulocyte % (Auto) 5, Neutrophils (%) (Auto) 60, Lymphocytes (%) (Auto) 12, Monocytes (%) (Auto) 14H, Eosinophils (%) (Auto) 9, Basophils (%) (Auto) 1, Neutrophils # (Auto) 5.3, Lymphocytes # (Auto) 1.0, Monocytes # (Auto) 1.3H, Eosinophils # (Auto) 0.8H, Basophils # (Auto) 0.0, Immature Granulocyte # (Auto) 0.4H, Sodium Level 131L, Potassium Level 4.3, Chloride Level 95L, Carbon Dioxide Level 27, Anion Gap 9, Blood Urea Nitrogen 28H, Creatinine 1.32H, Estimat Glomerular Filtration Rate 54, BUN/Creatinine Ratio 21, Glucose Level 93, Calcium Level 8.9, Corrected Calcium 9.6, Phosphorus Level 2.7, Magnesium Level 1.8, Total Bilirubin 0.4, Aspartate Amino Transf (AST/SGOT) 12, Alanine Aminotransferase (ALT/SGPT) 13, Alkaline Phosphatase 68, Total Protein 6.1L, Albumin 3.1L Microbiology 01/21/22 Urine Culture - Final, Complete Pseudomonas aeruginosa Pseudomonas aeruginosa#2 See Comments 01/21/22 MRSA Screen - Final, Complete 01/20/22 Blood Culture - Final, Complete No growth A/P: Assessment: Abd pain of undetermined etiology - [place] [facility] [place] - improved - managed by Medical services Sepsis, secondary to pneumonia - improved Acute on chronic exacerbation of COPD, history of oxygen dependence - clinically improved Paroxysmal atrial fibrillation, had 2 episodes of atrial fibrillation in January 2021, admitted in November 2021 with atrial fibrillation. - Failed amiodarone treatment, treated with sotalol (dose recently increased) - Currently in a-fib with controlled rate - [id number] score of 2, yearly risk of stroke without oral anticoagulation is 2.2%. Maintained on aspirin and Eliquis 2.5 mg twice daily - Lexiscan stress test was done in November [address] Roque showing no significant ischemia or infarction, ejection fraction 65% - Echocardiogram was done on January 22, [address] Roque showing normal LV size with EF 50 to 55%, PA pressure 25 mmHg. History of labile hypotension - episode of borderline hypotension - currently controlled History of left hip fracture - underwent surgical repair with Dr. Morrison on February 01, 2021 then repeat x-ray showed possible migration, referred to Dr. Hall, had to have redo surgery with different hardware and recovering better, using a walker Suprapubic urinary catheter - managed by the Med svce Plan: Maintaining sinus rhythm on current dose w/o QT prolongation (has been monitored for several days) Continue current regimen Ok to d/c from cardiac standpoint F/u with Dr Roque in 2 weeks JANELLE BETANCOURT Jan 28, 2022 13:45
== END 2022-01-28 13:39 | DRG 871 ==
LOC: EDUNIT# 22:04 → ER 22:06 → ICU 22:40 → 4TH 01-23 13:00 → ICU 01-23 13:10 → 4TH 01-27 15:48
PROVIDERS: ADMIT Internal Medicine; ATTEND Family Medicine
PROC: 5A0945A Assistance with Respiratory Ventilation, 24-96 Consecutive Hours, High Flow/Velocity Cannula (ICD-10-PCS; principal; 2022-01-21)
DX: A41.9 Sepsis, unspecified organism (principal); J18.9 Pneumonia, unspecified organism; J96.21 Acute and chronic respiratory failure with hypoxia; N17.9 Acute kidney failure, unspecified; N39.0 Urinary tract infection, site not specified; J44.0 Chronic obstructive pulmonary disease with (acute) lower respiratory infection; J44.1 Chronic obstructive pulmonary disease with (acute) exacerbation; E87.1 Hypo-osmolality and hyponatremia; N18.9 Chronic kidney disease, unspecified; B96.5 Pseudomonas (aeruginosa) (mallei) (pseudomallei) as the cause of diseases classified elsewhere; F03.90 Unspecified dementia, unspecified severity, without behavioral disturbance, psychotic disturbance, mood disturbance, and anxiety; R53.81 Other malaise; Z79.01 Long term (current) use of anticoagulants; Z66 Do not resuscitate; Z87.891 Personal history of nicotine dependence; I48.0 Paroxysmal atrial fibrillation; D64.9 Anemia, unspecified; Z79.82 Long term (current) use of aspirin; E78.00 Pure hypercholesterolemia, unspecified; K21.9 Gastro-esophageal reflux disease without esophagitis; M19.90 Unspecified osteoarthritis, unspecified site; E03.9 Hypothyroidism, unspecified; Z20.822 Contact with and (suspected) exposure to COVID-19; R65.20 Severe sepsis without septic shock; I12.9 Hypertensive chronic kidney disease with stage 1 through stage 4 chronic kidney disease, or unspecified chronic kidney disease; R10.9 Unspecified abdominal pain; Z79.899 Other long term (current) drug therapy
CPT/HCPCS: 36415; 36600; 71045; 80053; 81000; 82805; 82947; 83605; 83735; 83880; 84100; 84145; 84484; 85007; 85025; 85027; 85610; 85652; 85730; 86141; 87040; 87077; 87081; 87088; 87186; 87636; 93005; 93041; 93306; 94640; 94664; 94760; 94761

== ENCOUNTER 2022-02-10 17:31 | Inpatient (IN) | payer MEDICARE ==
[~2022-02-10] VITALS: Ht 188 cm; Wt 79.0 kg
[~2022-02-10 17:31] MED LIST changes: +BISA10SU58 RC; +DIPH25TA65 PO; +GUAI100L74 PO; +MAGN400O7 PO; +SOTA80TA62 PO; +VENL150C98 PO
[2022-02-10] MEDS ORDERED: RT-ALBUTEROL/IPRATROPIUM 3 ML (DUONEB) VIAL INH ONE (18:00)
[2022-02-10 18:01] LABS: BASOPHILS % (AUTO) 0 % (0-10); EOSINOPHILS % (AUTO) 0 % (0-10); HEMATOCRIT 35 % (40-54); HEMOGLOBIN 11.1 g/dL (13.3-17.7); LYMPHOCYTES # (AUTO) 0.3 10^3/uL (1.0-4.0); LYMPHOCYTES % (AUTO) 3 % (12-44); MEAN CORPUSCULAR HEMOGLOBIN 31 pg (25-34); MEAN CORPUSCULAR HGB CONC 32 g/dL (32-36); MEAN CORPUSCULAR VOLUME 96 fL (80-99); MONOCYTES # (AUTO) 0.7 10^3/uL (0.0-1.0); MONOCYTES % (AUTO) 7 % (0-12); NEUTROPHILS # (AUTO) 7.9 10^3/uL (1.8-7.8); NEUTROPHILS % (AUTO) 89 % (42-75); PLATELET COUNT 197 10^3/uL (130-400); WHITE BLOOD COUNT 8.9 10^3/uL (4.3-11.0)
--- NOTE | 2022-02-10 18:01 | ED Respiratory ---
General Chief Complaint: General Problems/Pain Stated Complaint: SOA Nursing Triage Note: Pt recently treated for PNA. Has been having fevers, nausea, SOB, and generalized pain for the past 3-4 days. (ALVAREZ MIKE) History of Present Illness Date Seen by Provider: Feb 10, 2022 Time Seen by Provider: 17:35 Initial Comments 82-year-old male presents for shortness of breath and sacral pain. He was admitted recently for pneumonia (01/24-01/28/22) and discharged back to [facility]. He reports the nursing staff not giving him breathing treatments every 4 hours. He has a suprapubic catheter and also reports a pressure ulcer to his sacrum from recent weight loss. He has a DNR/DNI. SaO2's 88 to 92% on nonrebreather at 15 L. Respiratory rate 22-30. Patient become short of breath with communication. He is alert and oriented. He received COVID Vaccine spring 2020. Timing/Duration: yesterday, getting worse Severity: moderate Prior Episodes/Possible Cause: occasional episodes Associated Symptoms: No chest pain/soreness, No cough, No fever/chills; shortness of breath (ALVAREZ MIKE) Allergies and Home Medications Allergies Coded Allergies: No Known Drug Allergies (Unverified , 01/23/12) Patient Home Medication List Home Medication List Reviewed: Yes (ALVAREZ MIKE) Acetaminophen (Tylenol Extra Strength) 500 Mg Tablet, 1,000 MG PO Q8H PRN for PAIN-MILD (1-4), (Reported) Entered as Reported by: SANTO HARRIS on 06/04/21 1036 Last Action: Continued Albuterol Sulfate (Albuterol Sulfate) 2.5 Mg/3 Ml Vial.neb, 2.5 MG INH Q6H PRN for SHORTNESS OF BREATH, (Reported) Entered as Reported by: JEFF TONY on 11/29/21 0230 Last Action: Held Apixaban (Eliquis) 2.5 Mg Tablet, 2.5 MG PO Q12H, (Reported) Entered as Reported by: MI BONDS on 01/21/22 0934 Last Action: Continued Aspirin (Aspirin EC) 81 Mg Tablet.dr, 81 MG PO Q12H, (Reported) Entered as Reported by: SANTO HARRIS on 06/04/211035 Last Action: Continued Bisacodyl (Dulcolax) 10 Mg Supp.rect, 10 MG RC DAILY PRN for CONSTIPATION-4TH LINE, (Reported) Entered as Reported by: MI BONDS on 01/21/22933 Last Action: Continued Cholecalciferol (Vitamin D3) (Vitamin D3) 125 Mcg Tablet, 125 MCG PO DAILY, (Reported) Entered as Reported by: MI BONDS on 02/04/21 0843 Last Action: Continued Docusate Sodium (Docusate Sodium) 100 Mg Capsule, 100 MG PO DAILY, (Reported) Entered as Reported by: SANTO HARRIS on 06/04/211035 Last Action: Continued Gabapentin (Neurontin) 300 Mg Capsule, 300 MG PO DAILY, (Reported) Entered as Reported by: SANTO HARRIS on 07/24/211354 Last Action: Continued Guaifenesin (Mucinex) 600 Mg Tab.er.12h, 600 MG PO Q12H, (Reported) Entered as Reported by: SANTO HARRIS on 07/24/211354 Last Action: Continued Hydrocodone/Acetaminophen (Hydrocodone-Acetamin 5-325 mg) 1 Each Tablet, 1 EA PO Q4H PRN for PAIN-MODERATE (5-7), (Reported) Entered as Reported by: SANTO HARRIS on 07/24/211354 Last Action: Continued Magnesium Hydroxide (Milk of Magnesia) 400 Mg/5 Ml Oral.susp, 30 ML PO Q12H PRN for CONSTIPATION-7TH LINE, (Reported) Entered as Reported by: MI BONDS on 01/21/22933 Last Action: Continued Melatonin (Melatonin) 3 Mg Tablet, 6 MG PO HS, (Reported) Entered as Reported by: SANTO HARRIS on 07/24/211354 Last Action: Continued Mometasone/Formoterol (Dulera 100 Mcg/5 Mcg Inhaler) 13 Gm Hfa.aer.ad, 2 PUFF INH BID, (Reported) Entered as Reported by: SANTO HARRIS on 07/24/211354 Last Action: Converted Pantoprazole Sodium (Pantoprazole Sodium) 40 Mg Tablet.dr, 40 MG PO DAILY, (Reported) Entered as Reported by: SANTO HARRIS on 10/19/21 1036 Last Action: Continued Polyethylene Glycol 3350 (Miralax) 17 Gm Powd.pack, 17 GM PO DAILY PRN for CONSTIPATION-2ND LINE, (Reported) Entered as Reported by: SANTO HARRIS on 06/04/21 1036 Last Action: Continued Sennosides (Senna) 8.6 Mg Tablet, 8.6 MG PO DAILY PRN for CONSTIPATION-5TH LINE, (Reported) Entered as Reported by: SANTO HARRIS on 07/24/21 135 Last Action: Continued Sodium Chloride (Saline Nasal [place]) 30 Ml [place], 2 SPRAYS NS Q1HR PRN for CONGESTION, (Reported) Entered as Reported by: JEFF TONY on 11/29/21 0316 Last Action: Continued Sotalol HCl (Sotalol) 80 Mg Tablet, 80 MG PO DAILY, (Reported) Entered as Reported by: MI BONDS on 01/21/22933 Last Action: Continued Tramadol HCl (Tramadol HCl) 50 Mg Tablet, 50 MG PO Q6H PRN for PAIN-MODERATE (5- 7), (Reported) Entered as Reported by: SANTO HARRIS on 07/24/211354 Last Action: Continued Venlafaxine HCl (Venlafaxine HCl ER) 150 Mg Cap.er.24h, 150 MG PO DAILY, (Reported) Entered as Reported by: MI BONDS on 01/21/22933 Last Action: Converted Vit A & D3 in Cod Liver Oil (Cod Liver Oil Softgel) 1 Each Capsule, 2 EACH PO DAILY, (Reported) Entered as Reported by: SANTO HARRIS on 07/24/211354 Last Action: Converted Discontinued Medications Cyanocobalamin (Vitamin B-12) (Vitamin B-12) 1,000 Mcg Tablet, 1,000 MCG PO DAILY, (Reported) Discontinued Reason: No Longer Taking Entered as Reported by: SANTO HARRIS on 07/24/211354 Last Action: Discontinued Diphenhydramine HCl (Benadryl Allergy) 25 Mg Tablet, 25 MG PO Q6H PRN for ALLERGIES, (Reported) Discontinued Reason: No Longer Taking Entered as Reported by: MI BONDS on 01/21/2234 Last Action: Discontinued Guaifenesin (Tussin) 100 Mg/5 Ml Liquid, 10 ML PO Q8H PRN for COUGH, (Reported) Discontinued Reason: No Longer Taking Entered as Reported by: MI BONDS on 01/21/22 1255 Last Action: Discontinued Review of Systems Review of Systems Constitutional: see HPI, fever, malaise, weakness EENTM: see HPI, no symptoms reported Respiratory: see HPI, cough, short of breath Cardiovascular: no symptoms reported, see HPI; No chest pain Gastrointestinal: no symptoms reported, see HPI (ALVAREZ MIKE) All Other Systems Reviewed Negative Unless Noted: Yes (ALVAREZ MIKE) Past Kfrepnr-Xjkxaq-Qpkirs Hx Immunizations Up To Date First/Initial COVID19 Vaccinat: 2019 Second COVID19 Vaccination Rufino: 2020 Third COVID19 Vaccination Date: 2021 (ALVAREZ MIKE) Past Medical History Surgery/Hospitalization HX: EYE SURGERY, HERNIA REPAIR, left hip, COPD Surgeries: Yes (hernia; LOOP RECORDER) Abdominal, Cardiac, Eye Surgery, Joint Replacement, Orthopedic Respiratory: Yes (O2 DEPENDENT AT 2-3L/NC) Pneumonia, COPD Currently Using CPAP: No Currently Using BIPAP: No Cardiac: Yes (LOOP RECORDER) Atrial Fibrillation, High Cholesterol, Hypertension Neurological: Yes Dementia Reproductive Disorders: No Genitourinary: Yes (URETHRAL STRICTURE; RETENTION; SUPRAPUBIC CATHETER 05/2021) Renal Failure Gastrointestinal: Yes Abdominal Hernia, Gastroesophageal Reflux, Polyps Musculoskeletal: Yes (UNSTEADY GAIT; LEFT HIP FX/ORIF WITH REVISION) Arthritis, Fractures Endocrine: Yes Hypothyroidsim HEENT: No Cancer: No Psychosocial: No Integumentary: No Blood Disorders: Yes (ANEMIA) (ALVAREZ MIKE) Family Medical History Reviewed Nursing Family Hx (ALVAREZ MIKE) No Pertinent Family Hx LOOP RECORDER PLACED AND STRESS TEST 11/27/[address] RIVER 1. Patient tolerated Lexiscan well 2. No significant ischemia or infarction on SPECT images 3. Normal left ventricular size, EF 65% SUPRAPUBIC CATH AND CYSTOSCOPY 05/[address] GARRETT COLONOSCOPIES LEFT HIP FX/ORIF 01/[address] BERNAL WITH LATER REVISION (ALVAREZ MIKE) Physical Exam Vital Signs - First Documented 02/10/22 02/10/22 17:33 18:06 Temp 38.3 Pulse 90 Resp 28 B/P (MAP) 105/91 (96) Pulse Ox 93 O2 Delivery Non Rebreather O2 Flow Rate 15.00 FiO2 100 (LINETTE IBARRA DO) Capillary Refill : (ALVAREZ MIKE) Height: 6'2.00" Weight: 186lbs. oz. 81.236647dg; 23.00 BMI Method: General Appearance: WD/WN, moderate distress HEENT: PERRL/EOMI, normal ENT inspection Neck: non-tender, full range of motion, supple, normal inspection Respiratory: chest non-tender, decreased breath sounds, rhonchi (bilat bases) Cardiovascular: normal peripheral pulses, regular rate, rhythm Gastrointestinal: normal bowel sounds, non tender, soft Extremities: normal range of motion, non-tender, normal inspection, normal capillary refill Neurologic/Psychiatric: no motor/sensory deficits, alert, normal mood/affect, oriented x 3 Skin: normal color, warm/dry, other (Stage 1-2 ucler to sacram ) (ALVAREZ MIKE) Progress/Results/Core Measures Suspected Sepsis SIRS Temperature: Pulse: 90 Respiratory Rate: 28 Laboratory Tests 02/10/22 17:52: White Blood Count 8.9 Blood Pressure 105 /91 Mean: 96 Laboratory Tests 02/10/22 17:52: Creatinine 1.39H, INR Comment 1.4, Platelet Count 197, Total Bilirubin 1.0 (ALVAREZ MIKE) Results/Orders Lab Results Laboratory Tests Test 02/10/22 17:52 Range/Units White Blood Count 8.9 4.3-11.0 10^3/uL Red Blood Count 3.63 L 4.30-5.52 10^6/uL Hemoglobin 11.1 L 13.3-17.7 g/dL Hematocrit 35 L 40-54 % Mean Corpuscular Volume 96 80-99 fL Mean Corpuscular Hemoglobin 31 25-34 pg Mean Corpuscular Hemoglobin Concent 32 32-36 g/dL Red Cell Distribution Width 13.7 10.0-14.5 % Platelet Count 197 130-400 10^3/uL Mean Platelet Volume 10.0 9.0-12.2 fL Immature Granulocyte % (Auto) 1 % Neutrophils (%) (Auto) 89 H 42-75 % Lymphocytes (%) (Auto) 3 L 12-44 % Monocytes (%) (Auto) 7 0-12 % Eosinophils (%) (Auto) 0 0-10 % Basophils (%) (Auto) 0 0-10 % Neutrophils # (Auto) 7.9 H 1.8-7.8 10^3/uL Lymphocytes # (Auto) 0.3 L 1.0-4.0 10^3/uL Monocytes # (Auto) 0.7 0.0-1.0 10^3/uL Eosinophils # (Auto) 0.0 0.0-0.3 10^3/uL Basophils # (Auto) 0.0 0.0-0.1 10^3/uL Immature Granulocyte # (Auto) 0.1 0.0-0.1 10^3/uL Neutrophils % (Manual) 68 % Lymphocytes % (Manual) 6 % Monocytes % (Manual) 6 % Eosinophils % (Manual) 1 % Band Neutrophils 18 % Blood Morphology Comment NORMAL Prothrombin Time 17.2 H 12.2-14.7 SEC INR Comment 1.4 0.8-1.4 Activated Partial Thromboplast Time 43 H 24-35 SEC Sodium Level 138 135-145 MMOL/L Potassium Level 4.3 3.6-5.0 MMOL/L Chloride Level 99 98-107 MMOL/L Carbon Dioxide Level 28 21-32 MMOL/L Anion Gap 11 5-14 MMOL/L Blood Urea Nitrogen 22 H 7-18 MG/DL Creatinine 1.39 H 0.60-1.30 MG/DL Estimat Glomerular Filtration Rate 50 BUN/Creatinine Ratio 16 Glucose Level 122 H 70-105 MG/DL Calcium Level 9.1 8.5-10.1 MG/DL Corrected Calcium 9.5 8.5-10.1 MG/DL Total Bilirubin 1.0 0.1-1.0 MG/DL Aspartate Amino Transf (AST/SGOT) 14 5-34 U/L Alanine Aminotransferase (ALT/SGPT) 13 0-55 U/L Alkaline Phosphatase 90 40-136 U/L Troponin I < 0.028 <0.028 NG/ML C-Reactive Protein High Sensitivity 19.77 H 0.00-0.50 MG/DL Total Protein 7.1 6.4-8.2 GM/DL Albumin 3.5 3.2-4.5 GM/DL Procalcitonin 1.65 H <0.10 NG/ML Influenza Type A (RT-PCR) Not Detected Not Detecte Influenza Type B (RT-PCR) Not Detected Not Detecte SARS-CoV-2 RNA (RT-PCR) Not Detected Not Detecte (LINETTE IBARRA DO) Vital Signs/I&O 02/10/22 02/10/22 02/10/22 02/10/22 17:33 17:50 18:06 18:23 Temp 38.3 Pulse 90 Resp 28 B/P (MAP) 105/91 (96) Pulse Ox 93 91 92 O2 Delivery Non Rebreather Non Rebreather OxyMask Vapotherm O2 Flow Rate 15.00 15.00 35.00 FiO2 100 80 (LINETTE IBARRA DO) Vital Signs/I&O Capillary Refill : (ALVAREZ MIKE) Blood Pressure Mean: 96 Progress Note : Time: 17:35 Progress Note Patient seen and evaluated, dyspnea with a respiratory rate in the 20-30 range. Max on nonrebreather at 15 L. RT called we will use a DuoNeb and convert to Vapotherm. Will obtain labs. IVF, 1 L for hypotension and fever 38.5 Celsius. 1819 improvement in respiratory status after DuoNeb and Vapotherm, SaO2 92% with respiratory rate of 18-20 1899 family notified, flu and COVID neg. 1934 family at bedside. Spoke to Dr. Nichols, agreeable with admission plans. 2039 patient has remained stable, bp labile 80-90s/50-60s. Continuing aggressive IV fluids. No complaints from patient. (ALVAREZ MIKE) Diagnostic Imaging Diagonstic Imaging: Xray Plain Films/CT/US/NM/MRI: chest Comments NAME: PAULINE OVALLE [facility] REC#: [id number] PT STATUS: REG ER : 1940 PHYSICIAN: ALVAREZ MIKE ADMIT DATE: 02/10/22/ER Draft Date of Exam:02/10/22 CHEST 1 VIEW, AP/PA ONLY INDICATION: Shortness of breath. Frontal chest obtained at 6:09 p.m. and compared to 01/21/2022. FINDINGS: There are COPD changes. There is no pneumothorax or pleural fluid. Heart is normal in size. There is bibasilar infiltrate, unchanged on the left side compared to 01/21/2022 but new on the right side. IMPRESSION: New right basilar infiltrate. Unchanged left basilar infiltrate. Underlying COPD changes. Dictated on workstation # [id number] Dict: 02/10/22 1809 Trans: 02/10/22 [id number] Interpreted by: THAO HUERTAS MD Electronically signed by: Reviewed: Reviewed by Me (ALVAREZ MIKE) Departure Impression Primary Impression: Shortness of breath Additional Impressions: Pressure ulcer Qualified Codes: L89.152 - Pressure ulcer of sacral region, stage 2 Pneumonia Qualified Codes: J18.9 - Pneumonia, unspecified organism Disposition: ADMITTED INPATIENT Condition: Critical Admissions Decision to Admit/Date: Feb 10, 2022 Time/Decision to Admit Time: 19:40 (ALVAREZ MIKE) Departure-Patient Inst. Referrals: ERIK NICHOLS MD (PCP/Family) Primary Care Physician ATTENDING PHYSICIAN NOTE: I WAS PHYSICALLY PRESENT ER PHYSICIAN, BUT I WAS NOT INVOLVED IN ANY DECISION MAKING OR ANY CARE OF PT. (LINETTE IBARRA DO) Copy Copies To 1: ERIK NICHOLS MD, AMY ARNP Feb 10, 2022 18:01 LINETTE IBARRA DO Feb 13, 2022 01:19
--- NOTE | 2022-02-10 18:13 | Diagnostic Imaging Report ---
INDICATION: Shortness of breath. Frontal chest obtained at 6:09 p.m. and compared to 01/21/2022. FINDINGS: There are COPD changes. There is no pneumothorax or pleural fluid. Heart is normal in size. There is bibasilar infiltrate, unchanged on the left side compared to 01/21/2022 but new on the right side. IMPRESSION: New right basilar infiltrate. Unchanged left basilar infiltrate. Underlying COPD changes. Dictated by: Dictated on workstation # [id number]
[2022-02-10 18:19] LABS: ALBUMIN 3.5 GM/DL (3.2-4.5); CHLORIDE 99 MMOL/L (98-107); POTASSIUM 4.3 MMOL/L (3.6-5.0); SODIUM 138 MMOL/L (135-145)
[2022-02-10 18:21] LABS: CALCIUM 9.1 MG/DL (8.5-10.1)
[2022-02-10 18:22] LABS: GLUCOSE 122 MG/DL (70-105); TOTAL PROTEIN 7.1 GM/DL (6.4-8.2)
[2022-02-10 18:23] LABS: CARBON DIOXIDE 28 MMOL/L (21-32)
[2022-02-10 18:25] LABS: ALKALINE PHOSPHATASE 90 U/L (40-136); CREATININE SERUM 1.39 MG/DL (0.60-1.30); GFR ESTIMATED 50
[2022-02-10 18:27] LABS: BUN/CREATININE RATIO 16
[2022-02-10 18:28] LABS: ALANINE AMINOTRANSFERASE 13 U/L (0-55)
[2022-02-10 18:47] LABS: BAND NEUTROPHILS 18 %; EOSINOPHILS % (MANUAL) 1 %; LYMPHOCYTES % (MANUAL) 6 %; MONOCYTES % (MANUAL) 6 %; NEUTROPHILS % (MANUAL) 68 %
[2022-02-10 18:48] LABS: RBC MORPH NORMAL
[2022-02-10] MEDS ORDERED: CEFEPIME INJECTION 1,000 MG in NS (IVPB) 50 ML IV ONE (19:15)
[2022-02-10] MEDS ORDERED: NS IV 1000 ML 1,000 ML IV SCH ×2 (20:00→20:30)
[2022-02-10 20:10] LABS: INR 1.4 (0.8-1.4); PROTHROMBIN TIME PATIENT 17.2 SEC (12.2-14.7)
[2022-02-10] MEDS ORDERED: ACETAMINOPHEN 325 MG TABLET PO STA (20:30)
[2022-02-10 21:37] VITALS: BP 95/54
[2022-02-10] MEDS ORDERED: NS IV 1000 ML 1,000 ML ONE (22:11)
[2022-02-10 22:24] VITALS: BP 95/54
[2022-02-10] MEDS ORDERED: RT-ALBUTEROL/IPRATROPIUM 3 ML (DUONEB) VIAL INH PRN (22:45)
[2022-02-10] MEDS: NS IV 1000 ML 1,000 ML IV SCH (23:12)
[2022-02-10] MEDS ORDERED: LORazepam INJ 2 MG/ML (ATIVAN) VIAL IV PRN (23:15)
[2022-02-10] MEDS ORDERED: ONDANSETRON 4 MG/2 ML (SDV) Z0FRAN IV PRN (23:15)
[2022-02-10] MEDS ORDERED: ACETAMINOPHEN 325 MG TABLET PO PRN (23:15)
[2022-02-10 23:26] VITALS: BP 90/41
[2022-02-10 23:26] LABS: BILIRUBIN,URINE NEGATIVE (NEGATIVE); CLARITY,URINE CLEAR; COLOR,URINE YELLOW; GLUCOSE, URINE (UA) NEGATIVE (NEGATIVE); KETONES,URINE TRACE (NEGATIVE); LEUKOCYTE ESTERASE ,URINE 2+ (NEGATIVE); NITRITE,URINE NEGATIVE (NEGATIVE); PROTEIN,URINE 2+ (NEGATIVE)
[2022-02-10 23:35] LABS: BACTERIA,URINE MODERATE /HPF; WBC,URINE 25-50 /HPF
[2022-02-11] MEDS: RT-ALBUTEROL/IPRATROPIUM 3 ML (DUONEB) VIAL INH SCH ×6 (01:37→21:24)
[2022-02-11] MEDS: CEFEPIME 1,000 MG/NS 50 ML IVPB IV SCH ×6 (03:19→17:45)
[2022-02-11 03:46] VITALS: BP 94/57
[2022-02-11] MEDS: NS IV 1000 ML 1,000 ML IV SCH ×3 (04:36→17:47)
[2022-02-11 06:04] LABS: BASOPHILS # (AUTO) 0.1 10^3/uL (0.0-0.1); BASOPHILS % (AUTO) 1 % (0-10); EOSINOPHILS % (AUTO) 0 % (0-10); HEMOGLOBIN 9.1 g/dL (13.3-17.7)
[2022-02-11 06:07] LABS: HEMATOCRIT 29 % (40-54); LYMPHOCYTES # (AUTO) 0.9 10^3/uL (1.0-4.0); LYMPHOCYTES % (AUTO) 7 % (12-44); MEAN CORPUSCULAR HEMOGLOBIN 30 pg (25-34); MEAN CORPUSCULAR HGB CONC 31 g/dL (32-36); MEAN CORPUSCULAR VOLUME 97 fL (80-99); MONOCYTES # (AUTO) 1.1 10^3/uL (0.0-1.0); MONOCYTES % (AUTO) 9 % (0-12); NEUTROPHILS # (AUTO) 10.3 10^3/uL (1.8-7.8); NEUTROPHILS % (AUTO) 80 % (42-75); PLATELET COUNT 149 10^3/uL (130-400); WHITE BLOOD COUNT 12.8 10^3/uL (4.3-11.0)
[2022-02-11 06:15] LABS: POTASSIUM 4.2 MMOL/L (3.6-5.0)
[2022-02-11 06:16] LABS: CALCIUM 8.1 MG/DL (8.5-10.1)
[2022-02-11 06:21] LABS: CREATININE SERUM 1.3 MG/DL (0.60-1.30)
[2022-02-11 07:23] VITALS: BP_SYST 83; BP_SYST 92; BP_DIAS 52
[2022-02-11 11:07] VITALS: BP 105/58
--- NOTE | 2022-02-11 12:18 | History & Physical-Hospitalist ---
History of Present Illness HPI/Chief Complaint Pt is an 81 year old male with PMH AFib, COPD, suprapubic catheter who presented to the ER due SOB and hypoxia. He was recently here for pneumonia and discharged to SNF at [facility]. He reports having difficulty breathing over the past few days and has needed more frequent breathing treatments. He was requiring a nonrebreather to maintain sats in the low 90s. He was placed on Vapotherm and found to have recurrent pneumonia on the right. He was also febrile on arrival. This morning he repors breathing easier and is hopeful to get Vapotherm off soon. Source: patient Date Seen 02/11/22 Time Seen by a Provider: 11:15 Attending Physician Erik Nichols MD PCP Admitting Physician: Erik Nichols MD Attending Physician: Erik Nichols MD Referring Physician Date of Admission Feb 10, 2022 at 20:10 Home Medications & Allergies Home Medications Reviewed patient Home Medication Reconciliation performed by pharmacy medication reconciliations indoor plant technician and/or nursing. Patients Allergies have been reviewed. Allergies Allergies Coded Allergies No Known Drug Allergies (Unverified01/23/12) Past Ewyjuvd-Nxkxan-Magiou Hx Patient Social History Employed/Student: retired Tobacco Use?: No Smoking Status: Former Smoker Smokeless Tobacco Frequency: Never a User Use of E-Cig and/or Vaping dev: No Use of E-Cig and/or Vaping Arsen: Never a User Substance use?: No Alcohol Use?: No Pt feels they are or have been: No Immunizations Up To Date First/Initial COVID19 Vaccinat: 2020 Second COVID19 Vaccination Rufino: 2020 Tetanus Booster (TDap): Unknown Hepatitis A: No Hepatitis B: No Current Status Advance Directives: Yes Communicates: Verbally Primary Language: German Preferred Spoken Language: German Is interpretation needed?: No Implanted or Applied Medical D: Orthopedic hardware, Other Past Medical History Surgeries: Abdominal, Cardiac, Eye Surgery, Joint Replacement, Orthopedic Pneumonia, COPD Currently Using CPAP: No Currently Using BIPAP: No Atrial Fibrillation, High Cholesterol, Hypertension Dementia Renal Failure Abdominal Hernia, Gastroesophageal Reflux, Polyps Arthritis, Fractures Hypothyroidsim Blood Disorders: Yes (ANEMIA) Family Medical History Reviewed Nursing Family Hx No Pertinent Family Hx LOOP RECORDER PLACED AND STRESS TEST 11/27/[address] RIVER 1. Patient tolerated Lexiscan well 2. No significant ischemia or infarction on SPECT images 3. Normal left ventricular size, EF 65% SUPRAPUBIC CATH AND CYSTOSCOPY 05/[address] GARRETT COLONOSCOPIES LEFT HIP FX/ORIF 01/[address] BERNAL WITH LATER REVISION Review of Systems Constitutional: fever, malaise Physical Exam Physical Exam Vital Signs Vital Signs - First Documented 02/10/22 02/10/22 17:33 18:06 Temp 38.3 Pulse 90 Resp 28 B/P (MAP) 105/91 (96) Pulse Ox 93 O2 Delivery Non Rebreather O2 Flow Rate 15.00 FiO2 100 Capillary Refill : Height, Weight, BMI Height: 6'2.00" Weight: 186lbs. oz. 81.101206bx; 22.35 BMI Method: General Appearance: No Apparent Distress, Chronically ill, Thin HEENT: PERRL/EOMI, Moist Mucous Membranes; No Scleral Icterus (L), No Scleral Icterus (R) Neck: Normal Inspection, Supple Respiratory: No Accessory Muscle Use, Crackles, Other (on Vapotherm) Cardiovascular: Regular Rate, Rhythm, No JVD, No Murmur Gastrointestinal: Normal Bowel Sounds, Non Tender, Soft Genital/Rectal: Other (catheter in place) Extremity: Normal Capillary Refill, No Calf Tenderness, No Pedal Edema Neurologic/Psychiatric: Alert, Oriented x3, Normal Mood/Affect; No Aphasia Skin: Normal Color, Warm/Dry Results Results/Procedures Labs Patient resulted labs reviewed. Imaging: Reviewed Imaging Report Imaging [facility] [place] NAME: [facility] REC#: [id number] PT STATUS: REG ER : 1940 PHYSICIAN: ALVAREZ MIKE ADMIT DATE: 02/10/22/ER Signed Date of Exam:02/10/22 CHEST 1 VIEW, AP/PA ONLY INDICATION: Shortness of breath. Frontal chest obtained at 6:09 p.m. and compared to 01/21/2022. FINDINGS: There are COPD changes. There is no pneumothorax or pleural fluid. Heart is normal in size. There is bibasilar infiltrate, unchanged on the left side compared to 01/21/2022 but new on the right side. IMPRESSION: New right basilar infiltrate. Unchanged left basilar infiltrate. Underlying COPD changes. Dictated by: Dictated on workstation # [id number] Dict: 02/10/22 1809 Trans: 02/10/22 [id number] Interpreted by: THAO HUERTAS MD Electronically signed by: THAO HUERTAS MD 02/10/22 8464 Assessment/Plan Admission Diagnosis Sepsis from Pneumonia Acute hypoxic respiratory failure Admission Status: Inpatient Order (span 2 midnights) Reason for Inpatient Admission: see below Assessment and Plan Sepsis due to pneumonia- POA Acute respiratory failure due to hypoxia MERVIN on CKD Chest xray revealed new right basilar infiltrate Continue IV abx Requiring Vapotherm, wean as able Pulm consulted Await cultures AFib COPD Dementia Continue home meds when med rec done DVT ppx: Already on anticoagulation Diagnosis/Problems Diagnosis/Problems (1) Suprapubic catheter Status: Chronic (2) Persistent atrial fibrillation (3) Acute and chronic respiratory failure with hypoxia Status: Acute (4) Sepsis Status: Acute (5) PNA (pneumonia) Status: Acute (6) COPD (chronic obstructive pulmonary disease) Status: Chronic (7) Poor prognosis Status: Acute (8) Stage 3a chronic kidney disease Status: Chronic Copy Copies To 1: ERIK NICHOLS MD, KATELYN M MD Feb 11, 2022 12:18
[2022-02-11] MEDS ORDERED: MILK OF MAGNESIA 400 MG/5 ML 30 ML UDC PO PRN (16:15)
[2022-02-11] MEDS ORDERED: SALINE NASAL SPRAY (OCEAN) 45 ML BTL NS PRN (16:15)
[2022-02-11] MEDS ORDERED: polyethylene glycoL POWDER 17 GM (MIRALAX) PACK PO PRN (16:15)
[2022-02-11] MEDS ORDERED: BISACODYL 10 MG SUPP (DULCOLAX) RC PRN (16:15)
[2022-02-11] MEDS ORDERED: SENNOSIDES 8.6 MG (SENOKOT) TAB PO PRN (16:15)
[2022-02-11] MEDS ORDERED: ACETAMINOPHEN 500 MG TAB (TYLENOL) PO PRN (16:15)
[2022-02-11 16:30] VITALS: BP 103/61
[2022-02-11] MEDS: ASPIRIN E.C. 81 MG (ECOTRIN) TAB PO SCH (17:45)
[2022-02-11] MEDS: APIXABAN 2.5 MG (ELIQUIS) TABLET PO SCH (17:46)
[2022-02-11 20:09] VITALS: BP 113/65
[2022-02-11] MEDS: guaiFENesin (MUCINEX) 600 MG TAB PO SCH (20:15)
[2022-02-11] MEDS: MELATONIN 3 MG TABLET PO SCH (20:15)
[2022-02-11] MEDS ORDERED: NON-FORMULARY MEDICATION 1 EA EA (Mometasone/Formoterol (Dulera 100 Mcg/5 Mcg Inhaler) 2 P INH SCH (21:00)
[2022-02-11] MEDS: RT--FLUTICASONE/SALMETEROL 113-14 (AIRDUO RespiCLICK) IH SCH (21:24)
[2022-02-11 23:15] VITALS: BP 113/63
[2022-02-12] MEDS: NS IV 1000 ML 1,000 ML IV SCH ×4 (01:11→20:38)
[2022-02-12] MEDS: RT-ALBUTEROL/IPRATROPIUM 3 ML (DUONEB) VIAL INH SCH ×6 (02:08→22:57)
[2022-02-12] MEDS: CEFEPIME 1,000 MG/NS 50 ML IVPB IV SCH ×6 (02:54→18:13)
[2022-02-12 03:41] VITALS: BP 134/81
[2022-02-12] MEDS: VENlafaxine XR 75 MG (EFFEXOR XR) CAP PO SCH (06:21)
[2022-02-12] MEDS: RT--FLUTICASONE/SALMETEROL 113-14 (AIRDUO RespiCLICK) IH SCH ×2 (07:14→22:55)
[2022-02-12 08:06] VITALS: BP 117/79
[2022-02-12] MEDS: HYDROcodone/APAP 5 MG/325 MG (LORTAB) TAB PO PRN ×2 (08:28→20:37)
[2022-02-12] MEDS: SOTALOL 80 MG (BETAPACE) TAB PO SCH (08:29)
[2022-02-12] MEDS: OMEGA 3 (FISH OIL) 1000 MG CAP PO SCH (08:29)
[2022-02-12] MEDS: ASPIRIN E.C. 81 MG (ECOTRIN) TAB PO SCH ×2 (08:29→18:13)
[2022-02-12] MEDS: PANTOPRAZOLE 40 MG (PROTONIX) TAB PO SCH (08:29)
[2022-02-12] MEDS: VITAMIN D3 125 MCG (5,000 UNITS) CAPSULE PO SCH (08:29)
[2022-02-12] MEDS: DOCUSATE SODIUM 100 MG (COLACE) CAP PO SCH (08:30)
[2022-02-12] MEDS: guaiFENesin (MUCINEX) 600 MG TAB PO SCH ×2 (08:30→20:37)
[2022-02-12] MEDS: GABAPENTIN 300 MG (NEURONTIN) CAP PO SCH (08:30)
[2022-02-12] MEDS: APIXABAN 2.5 MG (ELIQUIS) TABLET PO SCH ×2 (08:30→18:13)
[2022-02-12 08:42] LABS: HEMATOCRIT 32 % (40-54); HEMOGLOBIN 10.5 g/dL (13.3-17.7); MEAN CORPUSCULAR HEMOGLOBIN 31 pg (25-34); MEAN CORPUSCULAR HGB CONC 33 g/dL (32-36); MEAN CORPUSCULAR VOLUME 94 fL (80-99); MEAN PLATELET VOLUME 9.8 fL (9.0-12.2); PLATELET COUNT 153 10^3/uL (130-400)
[2022-02-12 08:52] LABS: POTASSIUM 3.8 MMOL/L (3.6-5.0)
[2022-02-12 08:53] LABS: CALCIUM 8.6 MG/DL (8.5-10.1)
[2022-02-12 08:57] LABS: CREATININE SERUM 1.02 MG/DL (0.60-1.30)
[2022-02-12] MEDS ORDERED: [UNRECOGNIZED DRUG - OTHER] PO SCH (09:00)
[2022-02-12] MEDS ORDERED: COD LIVER OIL PO SCH (09:00)
[2022-02-12] MEDS ORDERED: VIT A PO SCH (09:00)
[2022-02-12] MEDS ORDERED: NON-FORMULARY MEDICATION 1 EA EA (Venlafaxine HCl (Venlafaxine HCl ER) 150 MG) PO SCH (09:00)
[2022-02-12] MEDS ORDERED: D3 PO SCH (09:00)
--- NOTE | 2022-02-12 09:04 | Tele-ICU Progress Note ---
Subjective Date Seen by a Provider: Feb 12, 2022 Time Seen by a Provider: 08:15 Subjective/Events-last exam This virtual visit was conducted using real time audio/video. Thank you for asking us to see this patient for respiratory insufficiency due to B pna and AECOPD. Recent events: On camera, patient states he feels much better. PMH: COPD/home O2 2-3 LPM, dementia, HTN, HL, afib, GERD, anemia. SH: smoking history: former. DNR, DNI. FH: Non-contributory ROS: as in HPI PE: Conversational, appears comfortable. VSS. O2 sat 94% on 3 LPM HEENT: No obvious masses, adenopathy or JVD. Chest: clear to auscultation. Diminished. CV: Irreg. S1 S2 No murmur or added sounds. Abd: Non-tender. Bowel sounds Y. : Unremarkable. Suprapubic catheter. SEPTIC TANK INSTALLER/psychiatric: Grossly intact. No obvious focal findings. Extremities: No edema. SCDs in place. Capillary refill < 3 seconds. Skin: unremarkable. Results: Elevated WCC 12.8, BUN 24. Decreased Hb 9.1. CXR: Hyperinflated w small B infilts at bases. Available chart/ vitals / labs / images reviewed. Video assessment done using floating iPAD camera, rest of exam as per RN. A/P: Respiratory insufficiency: Continue present management with O2, duonebs, airduo. Monitor for increasing oxygenation needs and/or need for intubation. However appears much improved. Cont.Cefipime, Eliquis, ASA, PPI. Consider bronchoscopy if recurrent pna in same area, in order to rule out an endobronchial obstructive lesion. Discussed with RN Grisel and Dr. Segura. Asked RN to reach out to eICU if any questions or concerns later. Time spent with patient/coordination of care with other health professionals (mins): 40 Sepsis Event Evaluation Height, Weight, BMI Height: 6'2.00" Weight: 186lbs. oz. 81.773810vf; 22.35 BMI Method: Exam Exam Patient acknowledged, consented, and participated in this virtual visit which was conducted using real time audio/video Vital Signs Date Time Temp Pulse Resp B/P (MAP) Pulse Ox O2 Delivery O2 Flow Rate FiO2 02/12/22 08:06 36.7 100 18 117/79 (92) 94 Nasal Cannula 3.00 02/12/22 07:28 96 Vapotherm 20.00 60 02/12/22 07:14 93 Nasal Cannula 3.00 02/12/22 03:41 36.5 111 18 134/81 (98) 95 Room Air 02/12/22 02:08 92 Nasal Cannula 3.00 02/11/22 23:15 36.7 109 20 113/63 (80) 96 Room Air 02/11/22 21:24 93 Nasal Cannula 3.00 02/11/22 20:15 96 Vapotherm 20.00 60 02/11/22 20:09 36.9 110 20 113/65 (81) 93 Room Air 02/11/22 18:17 86 Nasal Cannula 2.00 02/11/22 16:30 36.9 105 20 103/61 (75) 91 Room Air 02/11/22 13:57 82 Vapotherm 20.00 50 02/11/22 11:07 36.6 98 22 105/58 (74) 95 Vapotherm 50.00 20.00 02/11/22 10:09 98 Vapotherm 25.00 60 I & O 02/12/22 07:00 Intake Total 2220 ml Output Total 2200 ml Balance 20 ml Height & Weight Height: 6'2.00" Weight: 186lbs. oz. 81.398094au; 22.35 BMI Method: General Appearance: No Apparent Distress Peripheral Pulses: 1+ Dorsalis Pedis (R), 1+ Left Dors-Pedis (L) (See free text.) Gastrointestinal: normal bowel sounds, non tender, soft Results Lab Laboratory Tests 02/10/22 17:52 02/11/22 05:30 Assessment/Plan Assessment/Plan See free text. Critical Care: Critically Ill Patient WYATT LINDSEY MD Feb 12, 2022 09:04
--- NOTE | 2022-02-12 11:14 | Progress Note - Hospitalist ---
Subjective HPI/CC On Admission Date Seen by Provider: Feb 12, 2022 Pt is an 81 year old male with PMH AFib, COPD, suprapubic catheter who presented to the ER due SOB and hypoxia. He was recently here for pneumonia and discharged to SNF at [facility]. He reports having difficulty breathing over the past few days and has needed more frequent breathing treatments. He was requiring a nonrebreather to maintain sats in the low 90s. He was placed on Vapotherm and found to have recurrent pneumonia on the right. He was also febrile on arrival. This morning he repors breathing easier and is hopeful to get Vapotherm off soon. Subjective/Events-last exam Pt reports feeling much better. Down to 3lpm NC. Reports wears oxygen at home but has been trying to wean himself off as he thinks it's a crunch. Encouraged him to comply with use as needed. Objective Exam Vital Signs Vital Signs Date Time Temp Pulse Resp B/P (MAP) Pulse Ox O2 Delivery O2 Flow Rate FiO2 02/12/22 10:22 94 Nasal Cannula 3.00 02/12/22 08:06 36.7 100 18 117/79 (92) 02/12/22 07:28 60 Capillary Refill : General Appearance: No Apparent Distress, Chronically ill Respiratory: No Respiratory Distress; No Crackles; Decreased Breath Sounds Cardiovascular: Regular Rate, Rhythm, No Murmur Neurologic/Psychiatric: Alert, Oriented x3 Results/Procedures Lab Laboratory Tests 02/12/22 08:33 Patient resulted labs reviewed. Assessment/Plan Assessment and Plan Assess & Plan/Chief Complaint Sepsis due to pneumonia- POA Acute respiratory failure due to hypoxia MERVIN on CKD Chest xray revealed new right basilar infiltrate Continue IV abx Down to NC, doing well Pulm consulted, discussed with Dr Ulloa who agrees with current ma nagement and recommends outpatient bronch if patient desires and continues to have recurrent pneumonia Cultures pending still AFib COPD Dementia Continue home meds DVT ppx: Already on anticoagulation Critical Care Critically Ill Patient Diagnosis/Problems Diagnosis/Problems (1) Suprapubic catheter Status: Chronic (2) Persistent atrial fibrillation (3) Acute and chronic respiratory failure with hypoxia Status: Acute (4) Sepsis Status: Acute (5) PNA (pneumonia) Status: Acute (6) COPD (chronic obstructive pulmonary disease) Status: Chronic (7) Poor prognosis Status: Acute (8) Stage 3a chronic kidney disease Status: Chronic RICARDO CLIFFORD MD Feb 12, 2022 11:14
[2022-02-12 11:19] VITALS: BP 113/77
[2022-02-12 16:30] VITALS: BP 138/77
[2022-02-12 19:30] VITALS: BP 145/80
[2022-02-12] MEDS: MELATONIN 3 MG TABLET PO SCH (20:37)
[2022-02-13] VITALS (8 sets, daily range): BP systolic 119–167; BP diastolic 65–85
[2022-02-13] MEDS: CEFEPIME 1,000 MG/NS 50 ML IVPB IV SCH ×6 (02:05→18:19)
[2022-02-13] MEDS: RT-ALBUTEROL/IPRATROPIUM 3 ML (DUONEB) VIAL INH SCH ×5 (02:29→21:33)
[2022-02-13] MEDS: NS IV 1000 ML 1,000 ML IV SCH ×3 (04:06→18:24)
[2022-02-13] MEDS: VENlafaxine XR 75 MG (EFFEXOR XR) CAP PO SCH (05:46)
[2022-02-13] MEDS: OMEGA 3 (FISH OIL) 1000 MG CAP PO SCH (09:05)
[2022-02-13] MEDS: DOCUSATE SODIUM 100 MG (COLACE) CAP PO SCH (09:05)
[2022-02-13] MEDS: SOTALOL 80 MG (BETAPACE) TAB PO SCH (09:05)
[2022-02-13] MEDS: PANTOPRAZOLE 40 MG (PROTONIX) TAB PO SCH (09:05)
[2022-02-13] MEDS: ASPIRIN E.C. 81 MG (ECOTRIN) TAB PO SCH ×2 (09:05→18:24)
[2022-02-13] MEDS: VITAMIN D3 125 MCG (5,000 UNITS) CAPSULE PO SCH (09:05)
[2022-02-13] MEDS: guaiFENesin (MUCINEX) 600 MG TAB PO SCH ×2 (09:05→20:06)
[2022-02-13] MEDS: APIXABAN 2.5 MG (ELIQUIS) TABLET PO SCH ×2 (09:06→18:24)
[2022-02-13] MEDS: GABAPENTIN 300 MG (NEURONTIN) CAP PO SCH (09:06)
[2022-02-13] MEDS ORDERED: NS (IVPB) 50 ML ONE (10:02)
[2022-02-13] MEDS: RT--FLUTICASONE/SALMETEROL 113-14 (AIRDUO RespiCLICK) IH SCH ×2 (11:16→21:35)
--- NOTE | 2022-02-13 11:26 | Physical Therapy Evaluation ---
PT Evaluation-General Medical Diagnosis Admission Date Feb 10, 2022 at 20:10 Medical Diagnosis: Recurrent pnemonia right lung, shortness of breath, hypoxia Onset Date: Feb 12, 2022 Therapy Diagnosis Therapy Diagnosis: Gait deficit, strength deficit Height/Weight Height (Feet): 6 Height (Inches): 2.00 Weight (Pounds): 186 Precautions Precautions/Isolations: Fall Prevention, Standard Precautions, Pressure Ulcer Weight Bear Status Right Lower Extremity: Right Full Weight Bearing Left Lower Extremity: Left Full Weight Bearing Referral Physician: Dr. Segura Reason for Referral: Evaluation/Treatment, Strengthening, Gait Medical History Pertinent Medical History: Atrial Fib, COPD, Dementia, Neuropathy Social History Home: Multilevel Current Living Status: Alone Entry Into Home: Stairs With Railing PT Steps Into Home: 2 Patient reports he lives in a single level home with a basement, with 2 steps to enter the house, however the past month or more has been at [facility]. Patient cognition not at baseline therefore unreliable historian. Prior Prior Level of Function SCALE: Activities may be completed with or without assistive devices. 2-Gtouloycmm-sdzfahc completes the activity by him/herself with no assistance from a helper. 5-Set-up or Clean-up Assistance-helper sets up or cleans up; patient completes activity. [place] assists only prior to or following the activity. 4-Supervision or Touching Assistance-helper provides verbal cues and/or touching/steadying and/or contact guard assistance as patient completes activity. Assistance may be provided throughout the activity or intermittently. 3-Partial/Moderate Assistance-helper does LESS THAN HALF the effort. Grand [place] lifts, holds or supports trunk or limbs, but provides less than half the effort. 2-Substantial/Maximal Assistance-helper does MORE THAN HALF the effort. Grand Chain lifts or holds trunk or limbs and provides more than half the effort. 8-Frsxmjvdx-xkssgd does ALL the effort. Patient does none of the effort to complete the activity. Or, the assistance of 2 or more helpers is required for the patient to complete the activity. If activity was not attempted, code reason: 7-Patient Refused. 9-Not Applicable-not attempted and the patient did not perform the activity before the current illness, exacerbation or injury. 10-Not Attempted due to Environmental Limitations-(lack of equipment, weather restraints, etc.). 88-Not Attempted due to Medical Conditions or Safety Concerns. Bed Mobility: 6 Transfers (B,C,W/C): 6 Gait: 6 Stairs: 6 Indoor Mobility (Ambulation): Independent Stairs: Independent Prior Devices Use: None Reports he has a cane and FWW at home PT Evaluation-Current Subjective Patient lying supine in bed upon PT arrival, agreeable to treatment. Patient rates pain at 0/10 currently. Objective Patient Orientation: Person, Place Attachments: Oxygen, Suprapubic Catheter, IV ROM/Strength ROM Lower Extremities WFLs bilaterally all planes Strength Lower Extremities 4/5 bilaterally all planes Sensory Vision: Functional Hearing: Functional Sensation Right Lower Extremit: Intact Sensation Left Lower Extremity: Intact Transfers Roll Left to Right (QC): 4 Sit to Lying (QC): 4 Lying to Sitting/Side of Bed(Q: 4 Sit to Stand (QC): 3 Chair/Qbs-ve-Ufssh Xfer(QC): 3 Gait Does the Patient Walk?: Yes Mode of Locomotion: Walk Anticipated Mode of Locomotion: Walk Distance: 4 Gait Assistive Device: FWW Balance Sitting Static: Fair Sitting Dynamic: Fair Standing Static: Fair Standing Dynamic: Poor Assessment/Needs Patient tolerated treatment fair. He performs all observed bed mobility with SBA and transfers with mod A. Patient tends to lean retropulsively while testing LEs in a seated position while on the side of the bed. Patient requires mod A and verbal cues for posture and balance during standing. Patient ambulates 4 feet to the chair with min A and verbal cues. Patient demonstrates rounded shoulders, forward trunk posture with mildly accentuated thoracic kyphosis. Patient in chair post treatment with all needs met, nursing notified, call light in hand. Rehab Potential: Fair PT Mold Inspector Goals Mold Inspector Goals PT Mold Inspector Goals Time Frame: Feb 28, 2022 Roll Left & Right (QC): 6 Sit to Lying (QC): 6 Lying-Sitting on Side/Bed(QC): 6 Sit to Stand (QC): 5 Chair/Dfz-kv-Sulmf Xfer(QC): 5 Toilet Transfer (QC): 5 Does the Patient Walk: Yes Walk 10 feet (QC): 4 Walk 50ft with 2 Turns (QC): 4 Walk 150 ft (QC): 3 1 Step (curb) (QC): 3 4 Steps (QC): 3 PT Plan Problem List Problem List: Activity Tolerance, Functional Strength, Safety, Balance, Gait, Transfer, Bed Mobility, ROM Treatment/Plan Treatment Plan: Continue Plan of Care Treatment Plan: Bed Mobility, Education, Functional Activity Molly, Functional Strength, Group Therapy, Gait, Safety, Therapeutic Exercise, Transfers Treatment Duration: Mar 14, 2022 Frequency: 6 times per week Estimated Hrs Per Day: .25 hour per day Patient and/or Family Agrees t: Yes Safety Risks/Education Patient Education: Gait Training, Transfer Techniques Teaching Recipient: Patient Teaching Methods: Demonstration, Discussion Response to Teaching: Reinforcement Needed Time/GCodes Time In: 1000 Time Out: 1025 Total Billed Treatment Time: 25 Total Billed Treatment Visit, MICA Oconnell JOHN A PT Feb 13, 2022 11:26
--- NOTE | 2022-02-13 12:07 | Progress Note - Hospitalist ---
Subjective HPI/CC On Admission Date Seen by Provider: Feb 13, 2022 Pt is an 81 year old male with PMH AFib, COPD, suprapubic catheter who presented to the ER due SOB and hypoxia. He was recently here for pneumonia and discharged to SNF at [facility]. He reports having difficulty breathing over the past few days and has needed more frequent breathing treatments. He was requiring a nonrebreather to maintain sats in the low 90s. He was placed on Vapotherm and found to have recurrent pneumonia on the right. He was also febrile on arrival. This morning he repors breathing easier and is hopeful to get Vapotherm off soon. Subjective/Events-last exam Pt reports doing well. No complaints. Breathing is easier. Discussed with patient and family (Dr Rankin) regarding possible benefit of bronchoscopy as an outpatient. Both are agreeable so referral placed to Pulm. Objective Exam Vital Signs Vital Signs Date Time Temp Pulse Resp B/P (MAP) Pulse Ox O2 Delivery O2 Flow Rate FiO2 02/13/22 09:05 69 02/13/22 08:47 36.5 18 137/69 (91) 99 Nasal Cannula 3.00 02/12/22 07:28 60 Capillary Refill : General Appearance: No Apparent Distress, Chronically ill, Thin Respiratory: Lungs Clear, No Respiratory Distress, Decreased Breath Sounds Cardiovascular: Regular Rate, Rhythm, No Murmur Neurologic/Psychiatric: Alert, Oriented x3 Results/Procedures Lab Patient resulted labs reviewed. Assessment/Plan Assessment and Plan Assess & Plan/Chief Complaint Sepsis due to pneumonia- POA Acute respiratory failure due to hypoxia MERVIN on CKD Chest xray revealed new right basilar infiltrate on admission Continue IV abx Stable on NC Pulm consulted, discussed with Dr Ulloa who agrees with current management and recommends outpatient bronch if patient desires and continues to have recurrent pneumonia Will refer to Pulm as an outpatient Cultures show psuedomonas in urine AFib COPD Dementia Continue home meds DVT ppx: Already on anticoagulation Critical Care Critically Ill Patient Diagnosis/Problems Diagnosis/Problems (1) Suprapubic catheter Status: Chronic (2) Persistent atrial fibrillation (3) Acute and chronic respiratory failure with hypoxia Status: Acute (4) Sepsis Status: Acute (5) PNA (pneumonia) Status: Acute (6) COPD (chronic obstructive pulmonary disease) Status: Chronic (7) Poor prognosis Status: Acute (8) Stage 3a chronic kidney disease Status: Chronic RICARDO CLIFFORD MD Feb 13, 2022 12:07
[2022-02-13] MEDS: MELATONIN 3 MG TABLET PO SCH (20:06)
[2022-02-13] MEDS: aCETylcysteine 20% (MUCOMYST) 4 ML SOLN VIAL PO SCH (21:34)
[2022-02-14] MEDS: NS IV 1000 ML 1,000 ML IV SCH ×2 (01:34→07:45)
[2022-02-14] MEDS: RT-ALBUTEROL/IPRATROPIUM 3 ML (DUONEB) VIAL INH SCH ×3 (02:26→10:48)
[2022-02-14] MEDS: CEFEPIME 1,000 MG/NS 50 ML IVPB IV SCH ×2 (03:14)
[2022-02-14 03:15] VITALS: BP 141/67
[2022-02-14 05:55] LABS: HEMATOCRIT 29 % (40-54); HEMOGLOBIN 9.1 g/dL (13.3-17.7); MEAN CORPUSCULAR HEMOGLOBIN 31 pg (25-34); MEAN CORPUSCULAR HGB CONC 32 g/dL (32-36); MEAN CORPUSCULAR VOLUME 96 fL (80-99); PLATELET COUNT 155 10^3/uL (130-400); WHITE BLOOD COUNT 8.9 10^3/uL (4.3-11.0)
[2022-02-14 06:13] LABS: POTASSIUM 3.7 MMOL/L (3.6-5.0)
[2022-02-14 06:14] LABS: CALCIUM 8.8 MG/DL (8.5-10.1)
[2022-02-14 06:19] LABS: CREATININE SERUM 0.91 MG/DL (0.60-1.30)
[2022-02-14] MEDS: VENlafaxine XR 75 MG (EFFEXOR XR) CAP PO SCH (06:27)
[2022-02-14] MEDS: RT--FLUTICASONE/SALMETEROL 113-14 (AIRDUO RespiCLICK) IH SCH (07:03)
[2022-02-14] MEDS: aCETylcysteine 20% (MUCOMYST) 4 ML SOLN VIAL PO SCH (07:03)
[2022-02-14] MEDS: DOCUSATE SODIUM 100 MG (COLACE) CAP PO SCH (08:43)
[2022-02-14] MEDS: GABAPENTIN 300 MG (NEURONTIN) CAP PO SCH (08:43)
[2022-02-14] MEDS: ASPIRIN E.C. 81 MG (ECOTRIN) TAB PO SCH (08:43)
[2022-02-14] MEDS: PANTOPRAZOLE 40 MG (PROTONIX) TAB PO SCH (08:43)
[2022-02-14] MEDS: OMEGA 3 (FISH OIL) 1000 MG CAP PO SCH (08:43)
[2022-02-14] MEDS: SOTALOL 80 MG (BETAPACE) TAB PO SCH (08:43)
[2022-02-14] MEDS: APIXABAN 2.5 MG (ELIQUIS) TABLET PO SCH (08:43)
[2022-02-14] MEDS: VITAMIN D3 125 MCG (5,000 UNITS) CAPSULE PO SCH (08:43)
[2022-02-14] MEDS: guaiFENesin (MUCINEX) 600 MG TAB PO SCH (08:43)
[2022-02-14 08:46] VITALS: BP 141/71
--- NOTE | 2022-02-14 09:09 | Discharge Summary ---
Diagnosis/Chief Complaint Date of Admission Feb 10, 2022 at 20:10 Date of Discharge Discharge Date: Feb 13, 2022 Admission Diagnosis Sepsis from Pneumonia Acute hypoxic respiratory failure Primary Care Mckinley Nichols MD Discharge Diagnosis (1) Suprapubic catheter Status: Chronic (2) Persistent atrial fibrillation (3) Acute and chronic respiratory failure with hypoxia Status: Acute (4) Sepsis Status: Acute (5) PNA (pneumonia) Status: Acute (6) COPD (chronic obstructive pulmonary disease) Status: Chronic (7) Poor prognosis Status: Acute (8) Stage 3a chronic kidney disease Status: Chronic Discharge Summary Discharge Physical Exam Allergies: Coded Allergies: No Known Drug Allergies (Unverified , 01/23/12) Vitals & I&Os Vital Signs Date Time Temp Pulse Resp B/P (MAP) Pulse Ox O2 Delivery O2 Flow Rate FiO2 02/14/22 13:40 02/14/22 12:00 36.8 92 18 96 Nasal Cannula 3.00 General Appearance: No Apparent Distress, Chronically ill Cardiovascular: Regular Rate, Rhythm, No Murmur Neurologic/Psychiatric: Alert, Oriented x3 Hospital Course She was admitted to the hospital secondary to acute on chronic respiratory failure secondary to recurrent pneumonia. He he required Vapotherm to maintain his oxygenation but was able to be weaned off of this. He was treated with IV antibiotics and had significant improvement. I did discuss the recurrent pneumonias with his son, Dr. Rankin. They have requested pulmonology referral for possible outpatient bronchoscopy. He was discharged back to [facility] in stable and improved condition. Labs (last 24 hrs) Microbiology 02/10/22 Urine Culture - Final, Complete Pseudomonas aeruginosa Patient resulted labs reviewed. Pending Labs Discussion & Recommendations Discharge Planning: >30 minutes discharge planning Discharge Home Medications: Active Scripts Active Reported Guaifenesin 100 Mg/5 Ml Liquid 10 Ml PO Q8H PRN Cefdinir 300 Mg Capsule 300 Mg PO BID FILLED 02-15-2022 #12/ DAY SUPPLY Acetylcysteine 200 Mg/Ml (20 %) Vial 200 Mg NEB BID Levofloxacin 500 Mg Tablet 500 Mg PO DAILY FILLED 02-11-2022 #02/20 DAY SUPPLY Milk of Magnesia (Magnesium Hydroxide) 400 Mg/5 Ml Oral.susp 30 Ml PO Q12H PRN Dulcolax (Bisacodyl) 10 Mg Supp.rect 10 Mg RC DAILY PRN Eliquis (Apixaban) 2.5 Mg Tablet 2.5 Mg PO Q12H Venlafaxine HCl ER (Venlafaxine HCl) 150 Mg Cap.er.24h 150 Mg PO DAILY Sotalol (Sotalol HCl) 80 Mg Tablet 80 Mg PO DAILY HOLD AND NOTIFY PCP FOR SBP <100 OR HR <50 Saline Nasal Mather (Sodium Chloride) 30 Ml Mather 2 Sprays NS Q1HR PRN Albuterol Sulfate 2.5 Mg/3 Ml Vial.neb 2.5 Mg INH Q6H PRN Mucinex (Guaifenesin) 600 Mg Tab.er.12h 600 Mg PO Q12H Dulera 100 Mcg/5 Mcg Inhaler (Mometasone/Formoterol) 13 Gm Hfa.aer.ad 2 Puff INH BID Melatonin 3 Mg Tablet 6 Mg PO HS TAKES 2 (3MG) TABS Neurontin (Gabapentin) 300 Mg Capsule 300 Mg PO DAILY Cod Liver Oil Softgel (Vit A & D3 in Cod Liver Oil) 1 Each Capsule 2 Each PO DAILY Tramadol HCl 50 Mg Tablet 50 Mg PO Q6H PRN Hydrocodone-Acetamin 5-325 mg (Hydrocodone/Acetaminophen) 1 Each Tablet 1 Ea PO Q4H PRN Senna (Sennosides) 8.6 Mg Tablet 8.6 Mg PO DAILY PRN Tylenol Extra Strength (Acetaminophen) 500 Mg Tablet 1,000 Mg PO Q8H PRN Miralax (Polyethylene Glycol 3350) 17 Gm Powd.pack 17 Gm PO DAILY PRN Docusate Sodium 100 Mg Capsule 100 Mg PO DAILY Aspirin EC (Aspirin) 81 Mg Tablet. 81 Mg PO Q12H Pantoprazole Sodium 40 Mg Tablet. 40 Mg PO DAILY Vitamin D3 (Cholecalciferol (Vitamin D3)) 125 Mcg Tablet 125 Mcg PO DAILY Instructions to patient/family Please see electronic discharge instructions given to patient. RICARDO CLIFFORD MD Feb 14, 2022 09:09
[2022-02-14] MEDS ORDERED: ACET200V4 PO (09:21)
[2022-02-14] MEDS ORDERED: CEFD300C3 PO (09:21)
--- NOTE | 2022-02-14 09:24 | Discharge Inst-Simple/Standard ---
Discharge Inst-Standard Discharge Medications New, Converted or Re-Newed RX: Transmitted to Pharmacy Patient Instructions/Follow Up Plan of Care/Instructions/FU: Please continue to take your medications as written. Please follow up with your primary care doctor to follow up this hospital stay. Activity as Tolerated: Yes Discharge Diet: No Restrictions Return to The Hospital For: Chest pain, shortness of breath, fever, weakness, if you feel you are getting worse. RICARDO CLIFFORD MD Feb 14, 2022 09:24
[2022-02-14] MEDS ORDERED: CEFEPIME 1,000 MG/NS 50 ML IVPB IV SCH ×2 (10:00)
[2022-02-14 12:00] VITALS: BP 135/75
== END 2022-02-14 13:40 | DRG 871 ==
LOC: EDUNIT# 17:31 → ER 17:32 → 4TH 20:10
PROVIDERS: ADMIT Internal Medicine; ATTEND Internal Medicine
DX: A41.9 Sepsis, unspecified organism (principal); J18.9 Pneumonia, unspecified organism; J96.21 Acute and chronic respiratory failure with hypoxia; J44.0 Chronic obstructive pulmonary disease with (acute) lower respiratory infection; N17.9 Acute kidney failure, unspecified; I48.19 Other persistent atrial fibrillation; Z66 Do not resuscitate; Z79.82 Long term (current) use of aspirin; Z79.899 Other long term (current) drug therapy; I48.91 Unspecified atrial fibrillation; E78.00 Pure hypercholesterolemia, unspecified; F03.90 Unspecified dementia, unspecified severity, without behavioral disturbance, psychotic disturbance, mood disturbance, and anxiety; K21.9 Gastro-esophageal reflux disease without esophagitis; M19.90 Unspecified osteoarthritis, unspecified site; E03.9 Hypothyroidism, unspecified; L89.152 Pressure ulcer of sacral region, stage 2; Z87.891 Personal history of nicotine dependence; I12.9 Hypertensive chronic kidney disease with stage 1 through stage 4 chronic kidney disease, or unspecified chronic kidney disease; N18.31 Chronic kidney disease, stage 3a; Z99.81 Dependence on supplemental oxygen; Z20.822 Contact with and (suspected) exposure to COVID-19
CPT/HCPCS: 36415; 71045; 80048; 80053; 81000; 84145; 84484; 85007; 85025; 85027; 85610; 85730; 86141; 87077; 87088; 87186; 87636; 94640; 94760

== ENCOUNTER 2022-02-16 16:53 | Inpatient (IN) | payer MEDICARE ==
[~2022-02-16] VITALS: Ht 188 cm; Wt 75.5 kg
[~2022-02-16 16:53] MED LIST changes: +ACET200V4 PO
--- NOTE | 2022-02-16 17:08 | ED Respiratory ---
General Stated Complaint: SOB,LOW O2 Source: patient, EMS, [facility] records Exam Limitations: clinical condition History of Present Illness Date Seen by Provider: Feb 16, 2022 Time Seen by Provider: 16:53 Initial Comments Patient to the ER by EMS from [facility] with chief complaint is had significantly worsening shortness of breath with oxygen saturations in the mid 70s on 4 L. They increase him to 5 L which is the most his oxygen concentrator will go to. He just got to the [facility] on Thursday 2 days ago with a history of double lung pneumonia. He is on antibiotics and has a Gunderson catheter in place. He is largely obtunded but denies any chest pain. He is having some abdominal discomfort today he says. No nausea or vomiting. He is a DNR. Allergies and Home Medications Allergies Coded Allergies: No Known Drug Allergies (Unverified , 01/23/12) Patient Home Medication List Home Medication List Reviewed: Yes Acetaminophen (Tylenol Extra Strength) 500 Mg Tablet, 1,000 MG PO Q8H PRN for PAIN-MILD (1-4), (Reported) Entered as Reported by: SANTO HARRIS on 06/04/21 1036 Acetylcysteine (Acetylcysteine) 200 Mg/Ml (20 %) Vial, 3 ML PO BID Prescribed by: RICARDO SEGURA on 02/14/22 0921 Albuterol Sulfate (Albuterol Sulfate) 2.5 Mg/3 Ml Vial.neb, 2.5 MG INH Q6H PRN for SHORTNESS OF BREATH, (Reported) Entered as Reported by: JEFF TONY on 11/29/21 0230 Apixaban (Eliquis) 2.5 Mg Tablet, 2.5 MG PO Q12H, (Reported) Entered as Reported by: MI BONDS on 01/21/22 0934 Aspirin (Aspirin EC) 81 Mg Tablet.dr, 81 MG PO Q12H, (Reported) Entered as Reported by: SANTO HARRIS on 06/04/21 1036 Bisacodyl (Dulcolax) 10 Mg Supp.rect, 10 MG RC DAILY PRN for CONSTIPATION-4TH LINE, (Reported) Entered as Reported by: MI BONDS on 01/21/22 0934 Cefdinir (Cefdinir) 300 Mg Capsule, 300 MG PO BID Prescribed by: RICARDO SEGURA on 02/14/22 0921 Cholecalciferol (Vitamin D3) (Vitamin D3) 125 Mcg Tablet, 125 MCG PO DAILY, (Reported) Entered as Reported by: MI BONDS on 02/04/21 0849 Docusate Sodium (Docusate Sodium) 100 Mg Capsule, 100 MG PO DAILY, (Reported) Entered as Reported by: SANTO HARRIS on 06/04/21 1036 Gabapentin (Neurontin) 300 Mg Capsule, 300 MG PO DAILY, (Reported) Entered as Reported by: SANTO HARRIS on 07/24/21 135 Guaifenesin (Mucinex) 600 Mg Tab.er.12h, 600 MG PO Q12H, (Reported) Entered as Reported by: SANTO HARRIS on 07/24/21 135 Hydrocodone/Acetaminophen (Hydrocodone-Acetamin 5-325 mg) 1 Each Tablet, 1 EA PO Q4H PRN for PAIN-MODERATE (5-7), (Reported) Entered as Reported by: SANTO HARRIS on 07/24/21 1355 Magnesium Hydroxide (Milk of Magnesia) 400 Mg/5 Ml Oral.susp, 30 ML PO Q12H PRN for CONSTIPATION-7TH LINE, (Reported) Entered as Reported by: MI BONDS on 01/21/22 0934 Melatonin (Melatonin) 3 Mg Tablet, 6 MG PO HS, (Reported) Entered as Reported by: SANTO HARRIS on 07/24/21 1355 Mometasone/Formoterol (Dulera 100 Mcg/5 Mcg Inhaler) 13 Gm Hfa.aer.ad, 2 PUFF INH BID, (Reported) Entered as Reported by: SANTO HARRIS on 07/24/21 1355 Pantoprazole Sodium (Pantoprazole Sodium) 40 Mg Tablet.dr, 40 MG PO DAILY, (Reported) Entered as Reported by: SANTO HARRIS on 06/04/21 1036 Polyethylene Glycol 3350 (Miralax) 17 Gm Powd.pack, 17 GM PO DAILY PRN for CONSTIPATION-2ND LINE, (Reported) Entered as Reported by: SANTO HARRIS on 06/04/21 1036 Sennosides (Senna) 8.6 Mg Tablet, 8.6 MG PO DAILY PRN for CONSTIPATION-5TH LINE, (Reported) Entered as Reported by: SANTO HARRIS on 07/24/21 1355 Sodium Chloride (Saline Nasal Hugo) 30 Ml Hugo, 2 SPRAYS NS Q1HR PRN for CONGESTION, (Reported) Entered as Reported by: JEFF TONY on 11/29/21 0316 Sotalol HCl (Sotalol) 80 Mg Tablet, 80 MG PO DAILY, (Reported) Entered as Reported by: MI BONDS on 01/21/22 0934 Tramadol HCl (Tramadol HCl) 50 Mg Tablet, 50 MG PO Q6H PRN for PAIN-MODERATE (5- 7), (Reported) Entered as Reported by: SANTO HARRIS on 07/24/21 1355 Venlafaxine HCl (Venlafaxine HCl ER) 150 Mg Cap.er.24h, 150 MG PO DAILY, (Reported) Entered as Reported by: MI BONDS on 01/21/22 09 Vit A & D3 in Cod Liver Oil (Cod Liver Oil Softgel) 1 Each Capsule, 2 EACH PO DAILY, (Reported) Entered as Reported by: SANTO HARRIS on 07/24/21 1355 Discontinued Medications Cyanocobalamin (Vitamin B-12) (Vitamin B-12) 1,000 Mcg Tablet, 1,000 MCG PO DAILY, (Reported) Discontinued Reason: No Longer Taking Entered as Reported by: SANTO HARRIS on 07/24/21 1355 Diphenhydramine HCl (Benadryl Allergy) 25 Mg Tablet, 25 MG PO Q6H PRN for ALLERGIES, (Reported) Discontinued Reason: No Longer Taking Entered as Reported by: MI BONDS on 01/21/22 0934 Guaifenesin (Tussin) 100 Mg/5 Ml Liquid, 10 ML PO Q8H PRN for COUGH, (Reported) Discontinued Reason: No Longer Taking Entered as Reported by: MI BONDS on 01/21/22 0939 Review of Systems Review of Systems Constitutional: No chills, No fever; malaise, weakness EENTM: No ear discharge, No ear pain Respiratory: cough, phlegm, short of breath, wheezing Cardiovascular: see HPI; No chest pain, No edema, No palpitations Gastrointestinal: No abdominal pain, No jaundice, No loss of appetite, No nausea Genitourinary: No discharge, No dysuria Musculoskeletal: back pain; No joint pain All Other Systems Reviewed Negative Unless Noted: Yes Past Oxylhhb-Fbxtrk-Olkygg Hx Patient Social History Tobacco Use?: No Use of E-Cig and/or Vaping dev: No Substance use?: No Immunizations Up To Date First/Initial COVID19 Vaccinat: 2019 Second COVID19 Vaccination Rufino: 2020 Third COVID19 Vaccination Date: 2021 Past Medical History Surgery/Hospitalization HX: EYE SURGERY, HERNIA REPAIR, left hip, COPD Surgeries: Yes (hernia; LOOP RECORDER) Abdominal, Cardiac, Eye Surgery, Joint Replacement, Orthopedic Respiratory: Yes (O2 DEPENDENT AT 2-3L/NC) Pneumonia, COPD Currently Using CPAP: No Currently Using BIPAP: No Cardiac: Yes (LOOP RECORDER) Atrial Fibrillation, High Cholesterol, Hypertension Neurological: Yes Dementia Reproductive Disorders: No Genitourinary: Yes (URETHRAL STRICTURE; RETENTION; SUPRAPUBIC CATHETER 05/2021) Renal Failure Gastrointestinal: Yes Abdominal Hernia, Gastroesophageal Reflux, Polyps Musculoskeletal: Yes (UNSTEADY GAIT; LEFT HIP FX/ORIF WITH REVISION) Arthritis, Fractures Endocrine: Yes Hypothyroidsim HEENT: No Cancer: No Psychosocial: No Integumentary: No Blood Disorders: Yes (ANEMIA) Family Medical History No Pertinent Family Hx LOOP RECORDER PLACED AND STRESS TEST 11/27/[address] RIVER 1. Patient tolerated Lexiscan well 2. No significant ischemia or infarction on SPECT images 3. Normal left ventricular size, EF 65% SUPRAPUBIC CATH AND CYSTOSCOPY 05/[address] GARRETT COLONOSCOPIES LEFT HIP FX/ORIF 01/[address] BERNAL WITH LATER REVISION Physical Exam Vital Signs - First Documented 02/16/22 02/16/22 16:55 17:20 Temp 36.8 Pulse 101 Resp 24 B/P (MAP) 121/75 (90) Pulse Ox 77 O2 Delivery OxyMask O2 Flow Rate 100.00 Capillary Refill : Height: 6'2.00" Weight: 186lbs. oz. [id number]; 22.35 BMI Method: General Appearance: severe distress, thin Eyes: Bilateral Eye Normal Inspection, Bilateral Eye PERRL, Bilateral Eye EOMI HEENT: PERRL/EOMI, pharynx normal Neck: full range of motion, supple, normal inspection Respiratory: respiratory distress (O2 sats in the upper 70s on 8 L by neb ulizer), accessory muscle use (35 rr), crackles (Faint bibasilar), wheezing Cardiovascular: normal peripheral pulses, regular rate, rhythm, no edema, tachycardia Gastrointestinal: normal bowel sounds, non tender, soft Extremities: non-tender, normal inspection, normal capillary refill Neurologic/Psychiatric: alert, normal mood/affect, oriented x 3 Skin: normal color, warm/dry Focused Exam Lactate Level 02/16/22 17:12: Lactic Acid Level 2.23*H Lactic Acid Level Laboratory Tests Test 02/16/22 17:12 Lactic Acid Level 2.23 MMOL/L (0.50-2.00) *H Progress/Results/Core Measures Suspected Sepsis SIRS Temperature: Pulse: Respiratory Rate: Laboratory Tests 02/16/22 17:12: White Blood Count 25.5H Blood Pressure / Mean: 02/16/22 17:12: Lactic Acid Level 2.23*H Laboratory Tests 02/16/22 17:12: Creatinine 1.33H, INR Comment 1.3, Platelet Count 250, Total Bilirubin 1.1H Results/Orders Lab Results Laboratory Tests Test 02/16/22 17:00 02/16/22 17:01 02/16/22 17:12 Range/Units Blood Gas Puncture Site R RAD Blood Gas Patient Temperature 98.2 Arterial Blood pH 7.31 *L 7.37-7.43 Arterial Blood Partial Pressure CO2 64 H 35-45 MMHG Arterial Blood Partial Pressure O2 56 L 79-93 MMHG Arterial Blood HCO3 31 H 23-27 MMOL/L Arterial Blood Total CO2 33.2 H 21.0-31.0 MMOL/L Arterial Blood Oxygen Saturation 79 L 94-100 % Arterial Blood Base Excess 5.1 H -2.5-2.5 MMOL/L Chris Test YES-POS Blood Gas Ventilator Setting NO Blood Gas Inspired Oxygen 12 L SARS-CoV-2 RNA (RT-PCR) Not Detected Not Detecte White Blood Count 25.5 H 4.3-11.0 10^3/uL Red Blood Count 4.02 L 4.30-5.52 10^6/uL Hemoglobin 12.1 #L 13.3-17.7 g/dL Hematocrit 39 L 40-54 % Mean Corpuscular Volume 96 80-99 fL Mean Corpuscular Hemoglobin 30 25-34 pg Mean Corpuscular Hemoglobin Concent 31 L 32-36 g/dL Red Cell Distribution Width 13.6 10.0-14.5 % Platelet Count 250 130-400 10^3/uL Mean Platelet Volume 9.5 9.0-12.2 fL Immature Granulocyte % (Auto) 5 % Neutrophils (%) (Auto) 92 H 42-75 % Lymphocytes (%) (Auto) 0 L 12-44 % Monocytes (%) (Auto) 2 0-12 % Eosinophils (%) (Auto) 1 0-10 % Basophils (%) (Auto) 0 0-10 % Neutrophils # (Auto) 23.5 H 1.8-7.8 10^3/uL Lymphocytes # (Auto) 0.1 L 1.0-4.0 10^3/uL Monocytes # (Auto) 0.4 0.0-1.0 10^3/uL Eosinophils # (Auto) 0.2 0.0-0.3 10^3/uL Basophils # (Auto) 0.0 0.0-0.1 10^3/uL Immature Granulocyte # (Auto) 1.4 H 0.0-0.1 10^3/uL Neutrophils % (Manual) 60 % Lymphocytes % (Manual) 0 % Monocytes % (Manual) 2 % Eosinophils % (Manual) 2 % Basophils % (Manual) 0 % Metamyelocytes % 5 % Myelocytes % 2 % Band Neutrophils 29 % Blood Morphology Comment NORMAL Prothrombin Time 16.9 H 12.2-14.7 SEC INR Comment 1.3 0.8-1.4 Activated Partial Thromboplast Time 35 24-35 SEC D-Dimer 2.46 H 0.00-0.49 UG/ML Sodium Level 135 135-145 MMOL/L Potassium Level 4.6 3.6-5.0 MMOL/L Chloride Level 94 L 98-107 MMOL/L Carbon Dioxide Level 27 21-32 MMOL/L Anion Gap 14 5-14 MMOL/L Blood Urea Nitrogen 13 7-18 MG/DL Creatinine 1.33 H 0.60-1.30 MG/DL Estimat Glomerular Filtration Rate 53 BUN/Creatinine Ratio 10 Glucose Level 116 H 70-105 MG/DL Lactic Acid Level 2.23 *H 0.50-2.00 MMOL/L Calcium Level 9.8 8.5-10.1 MG/DL Corrected Calcium 10.2 H 8.5-10.1 MG/DL Total Bilirubin 1.1 H 0.1-1.0 MG/DL Aspartate Amino Transf (AST/SGOT) 13 5-34 U/L Alanine Aminotransferase (ALT/SGPT) 7 0-55 U/L Alkaline Phosphatase 81 40-136 U/L C-Reactive Protein High Sensitivity 13.56 H 0.00-0.50 MG/DL B-Type Natriuretic Peptide 380.5 H <100.0 PG/ML Total Protein 7.2 6.4-8.2 GM/DL Albumin 3.5 3.2-4.5 GM/DL Procalcitonin 15.67 H <0.10 NG/ML My Orders Orders - HARMONY OTTO Cbc With Automated Diff (02/16/22 17:02) Comprehensive Metabolic Panel (02/16/22 17:02) Blood Culture (02/16/22 17:02) Sputum Culture (02/16/22 17:02) Urinalysis (02/16/22 17:02) Urine Culture (02/16/22 17:02) Protime With Inr (02/16/22 17:02) Partial Thromboplastin Time (02/16/22 17:02) Chest 1 View, Ap/Pa Only (02/16/22 17:02) Ed Iv/Invasive Line Start (02/16/22 17:02) Ed Iv/Invasive Line Start (02/16/22 17:02) Vital Signs Adult Sepsis Patie Q15M (02/16/22 17:02) O2 (02/16/22 17:02) Remove Rings In Anticipation O (02/16/22 17:02) Lactic Acid Analyzer (02/16/22 17:02) Ns Iv 1000 Ml (Sodium Chloride 0.9%) (02/16/22 17:15) Cefepime Injection (Maxipime Injection) (02/16/22 17:15) Vancomycin Injection (Vancomycin Injecti (02/16/22 17:15) Arterial Blood Gas (02/16/22 17:02) Covid 19 Inhouse Test (02/16/22 17:02) Ed Iv/Invasive Line Start (02/16/22 17:02) Ns Iv 500 Ml (Sodium Chloride 0.9%) (02/16/22 17:15) Bnp [place] (02/16/22 17:02) Hs C Reactive Protein (02/16/22 17:02) Procalcitonin (Pct) (02/16/22 17:02) Fibrin Degradation Products (02/16/22 17:02) Manual Differential (02/16/22 17:12) Fentanyl Inj (Sublimaze Injection) (02/16/22 18:00) Medications Given in ED Current Medications Medications Dose Ordered Sig/Brayan Route Start Time Stop Time Status Last Admin Dose Admin Cefepime HCl 1000 mg/Sodium Chloride 50 ml @ 100 mls/hr ONCE ONCE IV 02/16/22 17:15 02/16/22 17:44 DC 02/16/22 17:29 100 MLS/HR Fentanyl Citrate 25 mcg ONCE ONCE IVP 02/16/22 18:00 02/16/22 18:01 DC 02/16/22 18:12 25 MCG Vital Signs/I&O 02/16/22 02/16/22 16:55 17:20 Temp 36.8 Pulse 101 99 Resp 24 30 B/P (MAP) 121/75 (90) Pulse Ox 77 83 O2 Delivery OxyMask O2 Flow Rate 100.00 Capillary Refill : Progress Note : Time: 18:34 Progress Note Had a prolonged conversation with the son over the phone as well as the [id number] and the patient reaffirmed that he does not want to be int ubated. We did discuss comfort cares goals of care and he would like to pursue treatment using the BiPAP. He was not doing well at first but he is improving and on 100% FiO2 20/10 he is up to 97%. Diagnostic Imaging Diagonstic Imaging: Xray Plain Films/CT/US/NM/MRI: chest Comments [facility], [place] NAME: PAULINE OVALLE [facility] REC#: [id number] PT STATUS: REG ER : 1940 PHYSICIAN: HARMONY OTTO MD ADMIT DATE: 02/16/22/ER Signed Date of Exam:02/16/22 CHEST 1 VIEW, AP/PA ONLY INDICATION: Shortness of air. COMPARISON: 02/10/2022 and 12/01/2019. TECHNIQUE: Single radiograph of the chest dated February 16, 2022. FINDINGS: Loop recorder is again seen with battery pack overlying the left chest. The cardiac silhouette is within normal limits in size. No significant pulmonary vascular congestion. Background chronic obstructive pulmonary disease with associated interstitial lung disease is again noted. However, increasing reticular and groundglass opacities are identified within the bilateral lung bases. This is associated with developing tiny pleural effusions. No pneumothorax. Vascular calcifications within the aortic arch. Scattered osseous degenerative changes without acute osseous abnormality. IMPRESSION: Background chronic obstructive pulmonary disease and interstitial lung disease with developing bibasilar pneumonitis/atelectasis with associated developing trace pleural effusions. Dictated by: Dictated on workstation # [id number] Dict: 02/16/228 Trans: 02/16/221745 [id number] Interpreted by: SPRING MASON MD Electronically signed by: SPRING MASON MD 02/16/221745 Reviewed: Reviewed by Me Departure Communication (Admissions) Time/Spoke to Admitting Phy: 18:40 Discussed the case with Dr. Segura and she agrees to take the patient to the ICU on broad-spectrum antibiotics. DNI, DNR. Time/Spoke to Consulting Phy: 18:45 Discussed the case with Dr. Artemio Yin and he agrees to consult on the case. Impression Primary Impression: Acute on chronic respiratory failure with hypoxia and hypercapnia Additional Impressions: Pneumonia Qualified Codes: J18.9 - Pneumonia, unspecified organism Severe sepsis Disposition: ADMITTED INPATIENT Condition: Critical Admissions Decision to Admit Reason: Admit from ER (General) Decision to Admit/Date: Feb 16, 2022 Time/Decision to Admit Time: 18:00 Departure-Patient Inst. Referrals: ERIK JOHN MD (PCP/Family) Primary Care Physician HARMONY OTTO Feb 16, 2022 17:08
[2022-02-16] MEDS ORDERED: NS IV 1000 ML 1,000 ML IV SCH (17:15)
[2022-02-16] MEDS ORDERED: CEFEPIME INJECTION 1,000 MG in NS (IVPB) 50 ML IV ONE (17:15)
[2022-02-16] MEDS ORDERED: NS IV 500 ML 500 ML IV ONE (17:15)
[2022-02-16 17:19] LABS: ABG BASE EXCESS 5.1 MMOL/L (-2.5-2.5); ABG OXYGEN SATURATION 79 % (94-100); ABG PCO2 64 MMHG (35-45); ABG PO2 56 MMHG (79-93); ABG TCO2 33.2 MMOL/L (21.0-31.0); ALLENS TEST YES-POS; INSPIRED O2 12 L
[2022-02-16 17:20] LABS: ABG PH 7.31 (7.37-7.43); PATIENT TEMP 98.2; VENTILATOR NO
[2022-02-16 17:32] LABS: BASOPHILS % (AUTO) 0 % (0-10); EOSINOPHILS # (AUTO) 0.2 10^3/uL (0.0-0.3); EOSINOPHILS % (AUTO) 1 % (0-10); HEMATOCRIT 39 % (40-54); HEMOGLOBIN 12.1 g/dL (13.3-17.7); LYMPHOCYTES # (AUTO) 0.1 10^3/uL (1.0-4.0); LYMPHOCYTES % (AUTO) 0 % (12-44); MEAN CORPUSCULAR HEMOGLOBIN 30 pg (25-34); MEAN CORPUSCULAR HGB CONC 31 g/dL (32-36); MEAN CORPUSCULAR VOLUME 96 fL (80-99); MEAN PLATELET VOLUME 9.5 fL (9.0-12.2); MONOCYTES # (AUTO) 0.4 10^3/uL (0.0-1.0); MONOCYTES % (AUTO) 2 % (0-12); NEUTROPHILS # (AUTO) 23.5 10^3/uL (1.8-7.8); NEUTROPHILS % (AUTO) 92 % (42-75); PLATELET COUNT 250 10^3/uL (130-400); WHITE BLOOD COUNT 25.5 10^3/uL (4.3-11.0)
[2022-02-16 17:36] LABS: ALBUMIN 3.5 GM/DL (3.2-4.5); POTASSIUM 4.6 MMOL/L (3.6-5.0)
[2022-02-16 17:37] LABS: CALCIUM 9.8 MG/DL (8.5-10.1)
[2022-02-16 17:38] LABS: TOTAL PROTEIN 7.2 GM/DL (6.4-8.2)
[2022-02-16 17:40] LABS: BILIRUBIN,TOTAL 1.1 MG/DL (0.1-1.0)
--- NOTE | 2022-02-16 17:40 | Diagnostic Imaging Report ---
INDICATION: Shortness of air. COMPARISON: 02/10/2022 and 12/01/2019. TECHNIQUE: Single radiograph of the chest dated February 16, 2022. FINDINGS: Loop recorder is again seen with battery pack overlying the left chest. The cardiac silhouette is within normal limits in size. No significant pulmonary vascular congestion. Background chronic obstructive pulmonary disease with associated interstitial lung disease is again noted. However, increasing reticular and groundglass opacities are identified within the bilateral lung bases. This is associated with developing tiny pleural effusions. No pneumothorax. Vascular calcifications within the aortic arch. Scattered osseous degenerative changes without acute osseous abnormality. IMPRESSION: Background chronic obstructive pulmonary disease and interstitial lung disease with developing bibasilar pneumonitis/atelectasis with associated developing trace pleural effusions. Dictated by: Dictated on workstation # [id number]
[2022-02-16 17:42] LABS: CREATININE SERUM 1.33 MG/DL (0.60-1.30)
[2022-02-16 17:51] LABS: FIBRIN DEGRADATION PRODUCTS 2.46 UG/ML (0.00-0.49); INR 1.3 (0.8-1.4); PROTHROMBIN TIME PATIENT 16.9 SEC (12.2-14.7)
[2022-02-16 17:57] LABS: BAND NEUTROPHILS 29 %; NEUTROPHILS % (MANUAL) 60 %
[2022-02-16 17:58] LABS: BASOPHILS % (MANUAL) 0 %; EOSINOPHILS % (MANUAL) 2 %; LYMPHOCYTES % (MANUAL) 0 %; METAMYELOCYTES % 5 %; MONOCYTES % (MANUAL) 2 %; MYELOCYTES % 2 %; RBC MORPH NORMAL
[2022-02-16] MEDS ORDERED: fentaNYL INJ 100 MCG/2 ML AMP IVP ONE (18:00)
[2022-02-16] MEDS: VANCOMYCIN INJECTION 750 MG in NS (IVPB) 250 ML IV SCH ×2 (18:12→20:44)
[2022-02-16 19:56] LABS: BILIRUBIN,URINE NEGATIVE (NEGATIVE); CLARITY,URINE CLOUDY; COLOR,URINE YELLOW; GLUCOSE, URINE (UA) NEGATIVE (NEGATIVE); KETONES,URINE NEGATIVE (NEGATIVE); LEUKOCYTE ESTERASE ,URINE 1+ (NEGATIVE); NITRITE,URINE POSITIVE (NEGATIVE); PH,URINE 6.5 (5-9); PROTEIN,URINE 2+ (NEGATIVE)
[2022-02-16 20:12] LABS: BACTERIA,URINE MODERATE /HPF; WBC,URINE 50-100 /HPF; YEAST,URINE MODERATE /HPF
[2022-02-16] MEDS ORDERED: NS IV 500 ML 500 ML ONE (20:42)
[2022-02-16] MEDS ORDERED: EPINEPHrine 1 MG INJECTION 4 MG in NS (IVPB) 248 ML IV SCH (21:00)
[2022-02-16] MEDS ORDERED: ONDANSETRON 4 MG/2 ML (SDV) Z0FRAN IV PRN (21:00)
[2022-02-16] MEDS: NS IV 1000 ML 1,000 ML IV SCH (21:22)
[2022-02-16] MEDS: VASOPRESSIN INJECTION 20 UNIT in NS (IVPB) 100 ML IV SCH (21:22)
[2022-02-16] MEDS: NOREPINEPHRINE 8 MG/250 ML 250 ML IV SCH (21:23)
[2022-02-16 22:15] VITALS: BP 112/61
--- NOTE | 2022-02-16 22:25 | Tele-ICU Consult ---
Progress Note 82 yo male admitted with worsening of hypoxemia. This improved with application of BPAP. Pt given Vanco, cefepime for infection PMH: COPD/home O2 2-3 LPM, dementia, HTN, HL, afib, GERD, anemia. SH: smoking history: former. DNR, DNI. FH: Non-contributory ROS: as in HPI PE: Conversational, appears comfortable. VSS. O2 sat 94% on 3 LPM HEENT: No obvious masses, adenopathy or JVD. Chest: clear to auscultation. Diminished. CV: Irreg. S1 S2 No murmur or added sounds. Abd: Non-tender. Bowel sounds Y. : Unremarkable. Suprapubic catheter. COUNTERSINKER BALANCE SCREW HOLE/psychiatric: Grossly intact. No obvious focal findings. Extremities: No edema. Skin: chronic appearing rash A/P Acute hypoxemic resp failure. Pt reportedly DNR. Will use BPAP 02/03. Abx given, infection could be pneumonia vs suprapubic cath-related UTI SCDs prophy being used. I spoke w bedside nurse Focused Exam Lactate Level 02/16/22 17:12: Lactic Acid Level 2.23*H 02/16/22 19:15: Lactic Acid Level 1.82 Height, Weight, BMI Height: 6'2.00" Weight: 186lbs. oz. 81.276247qs; 22.35 BMI Method: Lactic Acid Level Laboratory Tests Test 02/16/22 19:15 Lactic Acid Level 1.82 MMOL/L (0.50-2.00) Vital Signs Vitals Signs Source: Oral, Heart Rate: 80, Respiratory Rate: 25, BP: 112/61, Pulse Oximetry: 96, Weight: 80.0 Labs Laboratory Tests 02/16/22 17:12 Data Review Labs Laboratory Tests 02/16/22 17:00: Blood Gas Puncture Site R RAD, Blood Gas Patient Temperature 98.2, Arterial Blood pH 7.31*L, Arterial Blood Partial Pressure CO2 64H, Arterial Blood Partial Pressure O2 56L, Arterial Blood HCO3 31H, Arterial Blood Total CO2 33.2H, Arterial Blood Oxygen Saturation 79L, Arterial Blood Base Excess 5.1H, Chris Test YES-POS, Blood Gas Ventilator Setting NO, Blood Gas Inspired Oxygen 12 L 02/16/22 17:01: SARS-CoV-2 RNA (RT-PCR) Not Detected 02/16/22 17:12: White Blood Count 25.5H, Red Blood Count 4.02L, Hemoglobin 12.1#L, Hematocrit 39L, Mean Corpuscular Volume 96, Mean Corpuscular Hemoglobin 30, Mean Corpuscular Hemoglobin Concent 31L, Red Cell Distribution Width 13.6, Platelet Count 250, Mean Platelet Volume 9.5, Immature Granulocyte % (Auto) 5, Neutrophils (%) (Auto) 92H, Lymphocytes (%) (Auto) 0L, Monocytes (%) (Auto) 2, Eosinophils (%) (Auto) 1, Basophils (%) (Auto) 0, Neutrophils # (Auto) 23.5H, Lymphocytes # (Auto) 0.1L, Monocytes # (Auto) 0.4, Eosinophils # (Auto) 0.2, Basophils # (Auto) 0.0, Immature Granulocyte # (Auto) 1.4H, Neutrophils % (Manual) 60, Lymphocytes % (Manual) 0, Monocytes % (Manual) 2, Eosinophils % (Manual) 2, Basophils % (Manual) 0, Metamyelocytes % 5, Myelocytes % 2, Band Neutrophils 29, Blood Morphology Comment NORMAL, Prothrombin Time 16.9H, INR Comment 1.3, Activated Partial Thromboplast Time 35, D-Dimer 2.46H, Sodium Level 135, Potassium Level 4.6, Chloride Level 94L, Carbon Dioxide Level 27, Anion Gap 14, Blood Urea Nitrogen 13, Creatinine 1.33H, Estimat Glomerular Filtration Rate 53, BUN/Creatinine Ratio 10, Glucose Level 116H, Lactic Acid Level 2.23*H, Calcium Level 9.8, Corrected Calcium 10.2H, Total Bilirubin 1.1H, Aspartate Amino Transf (AST/SGOT) 13, Alanine Aminotransferase (ALT/SGPT) 7, Alkaline Phosphatase 81, C-Reactive Protein High Sensitivity 13.56H, B-Type Natriuretic Peptide 380.5H, Total Protein 7.2, Albumin 3.5, Procalcitonin 15.67H 02/16/22 19:15: Lactic Acid Level 1.82 02/16/22 19:31: Urine Color YELLOW, Urine Clarity CLOUDY, Urine pH 6.5, Urine Specific [place] 1.025H, Urine Protein 2+H, Urine Glucose (UA) NEGATIVE, Urine Ketones NEGATIVE, Urine Nitrite POSITIVEH, Urine Bilirubin NEGATIVE, Urine Urobilinogen 0.2, Urine Leukocyte Esterase 1+H, Urine RBC (Auto) 3+H, Urine RBC 10-25H, Urine WBC 50- 100H, Urine Crystals NONE, Urine Bacteria MODERATEH, Urine Casts NONE, Urine Mucus NEGATIVE, Urine Yeast MODERATEH, Urine Culture Indicated CULTURE PENDING Vitals - Labs Vital Signs - I&O Vital Signs Date Time Temp Pulse Resp B/P (MAP) Pulse Ox O2 Delivery O2 Flow Rate FiO2 02/16/22 22:15 80 25 96 60.00 02/16/22 20:34 94 OxyMask 15.00 80 02/16/22 20:30 81 02/16/22 19:37 36.8 89 27 115/66 100 NIV Bilevel 02/16/22 19:22 100 NIV Bilevel 100 02/16/22 17:20 99 30 83 100.00 02/16/22 16:55 36.8 101 24 121/75 (90) 77 OxyMask Labs Laboratory Tests 02/16/22 17:00: Blood Gas Puncture Site R RAD, Blood Gas Patient Temperature 98.2, Arterial Blood pH 7.31*L, Arterial Blood Partial Pressure CO2 64H, Arterial Blood Partial Pressure O2 56L, Arterial Blood HCO3 31H, Arterial Blood Total CO2 33.2H, Arterial Blood Oxygen Saturation 79L, Arterial Blood Base Excess 5.1H, Chris Test YES-POS, Blood Gas Ventilator Setting NO, Blood Gas Inspired Oxygen 12 L 02/16/22 17:01: SARS-CoV-2 RNA (RT-PCR) Not Detected 02/16/22 17:12: White Blood Count 25.5H, Red Blood Count 4.02L, Hemoglobin 12.1#L, Hematocrit 39L, Mean Corpuscular Volume 96, Mean Corpuscular Hemoglobin 30, Mean Corpuscular Hemoglobin Concent 31L, Red Cell Distribution Width 13.6, Platelet Count 250, Mean Platelet Volume 9.5, Immature Granulocyte % (Auto) 5, Neutrophils (%) (Auto) 92H, Lymphocytes (%) (Auto) 0L, Monocytes (%) (Auto) 2, Eosinophils (%) (Auto) 1, Basophils (%) (Auto) 0, Neutrophils # (Auto) 23.5H, Lymphocytes # (Auto) 0.1L, Monocytes # (Auto) 0.4, Eosinophils # (Auto) 0.2, Basophils # (Auto) 0.0, Immature Granulocyte # (Auto) 1.4H, Neutrophils % (Manual) 60, Lymphocytes % (Manual) 0, Monocytes % (Manual) 2, Eosinophils % (Manual) 2, Basophils % (Manual) 0, Metamyelocytes % 5, Myelocytes % 2, Band Neutrophils 29, Blood Morphology Comment NORMAL, Prothrombin Time 16.9H, INR Comment 1.3, Activated Partial Thromboplast Time 35, D-Dimer 2.46H, Sodium Level 135, Potassium Level 4.6, Chloride Level 94L, Carbon Dioxide Level 27, Anion Gap 14, Blood Urea Nitrogen 13, Creatinine 1.33H, Estimat Glomerular Filtration Rate 53, BUN/Creatinine Ratio 10, Glucose Level 116H, Lactic Acid Level 2.23*H, Calcium Level 9.8, Corrected Calcium 10.2H, Total Bilirubin 1.1H, Aspartate Amino Transf (AST/SGOT) 13, Alanine Aminotransferase (ALT/SGPT) 7, Alkaline Phosphatase 81, C-Reactive Protein High Sensitivity 13.56H, B-Type Natriuretic Peptide 380.5H, Total Protein 7.2, Albumin 3.5, Procalcitonin 15.67H 02/16/22 19:15: Lactic Acid Level 1.82 02/16/22 19:31: Urine Color YELLOW, Urine Clarity CLOUDY, Urine pH 6.5, Urine Specific [place] 1.025H, Urine Protein 2+H, Urine Glucose (UA) NEGATIVE, Urine Ketones NEGATIVE, Urine Nitrite POSITIVEH, Urine Bilirubin NEGATIVE, Urine Urobilinogen 0.2, Urine Leukocyte Esterase 1+H, Urine RBC (Auto) 3+H, Urine RBC 10-25H, Urine WBC 50- 100H, Urine Crystals NONE, Urine Bacteria MODERATEH, Urine Casts NONE, Urine Mucus NEGATIVE, Urine Yeast MODERATEH, Urine Culture Indicated CULTURE PENDING Meds/Labs/Orders Lab results: Laboratory Tests Test 02/16/22 17:00 02/16/22 17:01 02/16/22 17:12 02/16/22 19:15 Range/Units Blood Gas Puncture Site R RAD Blood Gas Patient Temperature 98.2 Arterial Blood pH 7.31 *L 7.37-7.43 Arterial Blood Partial Pressure CO2 64 H 35-45 MMHG Arterial Blood Partial Pressure O2 56 L 79-93 MMHG Arterial Blood HCO3 31 H 23-27 MMOL/L Arterial Blood Total CO2 33.2 H 21.0-31.0 MMOL/L Arterial Blood Oxygen Saturation 79 L 94-100 % Arterial Blood Base Excess 5.1 H -2.5-2.5 MMOL/L Chris Test YES-POS Blood Gas Ventilator Setting NO Blood Gas Inspired Oxygen 12 L SARS-CoV-2 RNA (RT-PCR) Not Detected Not Detecte White Blood Count 25.5 H 4.3-11.0 10^3/uL Red Blood Count 4.02 L 4.30-5.52 10^6/uL Hemoglobin 12.1 #L 13.3-17.7 g/dL Hematocrit 39 L 40-54 % Mean Corpuscular Volume 96 80-99 fL Mean Corpuscular Hemoglobin 30 25-34 pg Mean Corpuscular Hemoglobin Concent 31 L 32-36 g/dL Red Cell Distribution Width 13.6 10.0-14.5 % Platelet Count 250 130-400 10^3/uL Mean Platelet Volume 9.5 9.0-12.2 fL Immature Granulocyte % (Auto) 5 % Neutrophils (%) (Auto) 92 H 42-75 % Lymphocytes (%) (Auto) 0 L 12-44 % Monocytes (%) (Auto) 2 0-12 % Eosinophils (%) (Auto) 1 0-10 % Basophils (%) (Auto) 0 0-10 % Neutrophils # (Auto) 23.5 H 1.8-7.8 10^3/uL Lymphocytes # (Auto) 0.1 L 1.0-4.0 10^3/uL Monocytes # (Auto) 0.4 0.0-1.0 10^3/uL Eosinophils # (Auto) 0.2 0.0-0.3 10^3/uL Basophils # (Auto) 0.0 0.0-0.1 10^3/uL Immature Granulocyte # (Auto) 1.4 H 0.0-0.1 10^3/uL Neutrophils % (Manual) 60 % Lymphocytes % (Manual) 0 % Monocytes % (Manual) 2 % Eosinophils % (Manual) 2 % Basophils % (Manual) 0 % Metamyelocytes % 5 % Myelocytes % 2 % Band Neutrophils 29 % Blood Morphology Comment NORMAL Prothrombin Time 16.9 H 12.2-14.7 SEC INR Comment 1.3 0.8-1.4 Activated Partial Thromboplast Time 35 24-35 SEC D-Dimer 2.46 H 0.00-0.49 UG/ML Sodium Level 135 135-145 MMOL/L Potassium Level 4.6 3.6-5.0 MMOL/L Chloride Level 94 L 98-107 MMOL/L Carbon Dioxide Level 27 21-32 MMOL/L Anion Gap 14 5-14 MMOL/L Blood Urea Nitrogen 13 7-18 MG/DL Creatinine 1.33 H 0.60-1.30 MG/DL Estimat Glomerular Filtration Rate 53 BUN/Creatinine Ratio 10 Glucose Level 116 H 70-105 MG/DL Lactic Acid Level 2.23 *H 1.82 0.50-2.00 MMOL/L Calcium Level 9.8 8.5-10.1 MG/DL Corrected Calcium 10.2 H 8.5-10.1 MG/DL Total Bilirubin 1.1 H 0.1-1.0 MG/DL Aspartate Amino Transf (AST/SGOT) 13 5-34 U/L Alanine Aminotransferase (ALT/SGPT) 7 0-55 U/L Alkaline Phosphatase 81 40-136 U/L C-Reactive Protein High Sensitivity 13.56 H 0.00-0.50 MG/DL B-Type Natriuretic Peptide 380.5 H <100.0 PG/ML Total Protein 7.2 6.4-8.2 GM/DL Albumin 3.5 3.2-4.5 GM/DL Procalcitonin 15.67 H <0.10 NG/ML Test 02/16/22 19:31 Range/Units Urine Color YELLOW Urine Clarity CLOUDY Urine pH 6.5 5-9 Urine Specific [place] 1.025 H 1.016-1.022 Urine Protein 2+ H NEGATIVE Urine Glucose (UA) NEGATIVE NEGATIVE Urine Ketones NEGATIVE NEGATIVE Urine Nitrite POSITIVE H NEGATIVE Urine Bilirubin NEGATIVE NEGATIVE Urine Urobilinogen 0.2 < = 1.0 MG/DL Urine Leukocyte Esterase 1+ H NEGATIVE Urine RBC (Auto) 3+ H NEGATIVE Urine RBC 10-25 H /HPF Urine WBC 50-100 H /HPF Urine Crystals NONE /LPF Urine Bacteria MODERATE H /HPF Urine Casts NONE /LPF Urine Mucus NEGATIVE /LPF Urine Yeast MODERATE H /HPF Urine Culture Indicated CULTURE PENDING My orders: Orders - AUSTYN LIVINGSTON MD Bipap (Bilevel) Set Up (02/16/22 22:10) Troponin I Jordin (02/16/22 22:26) Lactic Acid Body Fluid (02/16/22 22:26) AUSTYN LIVINGSTON MD Feb 16, 2022 22:25
[2022-02-16 22:37] LABS: ABG BASE EXCESS 5.1 MMOL/L (-2.5-2.5); ABG OXYGEN SATURATION 99 % (94-100); ABG PCO2 56 MMHG (35-45); ABG PH 7.35 (7.37-7.43); ABG PO2 122 MMHG (79-93); ABG TCO2 32.5 MMOL/L (21.0-31.0)
[2022-02-16 22:38] LABS: ALLENS TEST YES-POS; INSPIRED O2 35% BIPAP; PATIENT TEMP 35.9; VENTILATOR NO
[2022-02-16] MEDS ORDERED: RT-ALBUTEROL SULF 2.5 MG/3 ML PRE-MIX VIAL INH PRN (23:45)
[2022-02-17] MEDS: ENOXAPARIN 40 MG/0.4 ML (LOVENOX) SYR SC SCH ×2 (01:06→20:07)
[2022-02-17] MEDS: CEFEPIME 1,000 MG/NS 50 ML IVPB IV SCH ×8 (01:06→20:07)
[2022-02-17] MEDS: RT-ALBUTEROL SULF 2.5 MG/3 ML PRE-MIX VIAL INH SCH ×6 (02:19→22:17)
[2022-02-17 02:20] VITALS: BP 148/77
[2022-02-17 05:17] LABS: ABG BASE EXCESS 5.6 MMOL/L (-2.5-2.5); ABG OXYGEN SATURATION 99 % (94-100); ABG PCO2 60 MMHG (35-45); ABG PO2 186 MMHG (79-93); ABG TCO2 33.2 MMOL/L (21.0-31.0)
[2022-02-17 05:18] LABS: INSPIRED O2 100; PATIENT TEMP 36.2; VENTILATOR NO
[2022-02-17 05:19] LABS: ABG PH 7.34 (7.37-7.43)
[2022-02-17 05:36] LABS: BASOPHILS % (AUTO) 0 % (0-10); EOSINOPHILS % (AUTO) 0 % (0-10); HEMATOCRIT 31 % (40-54); HEMOGLOBIN 9.5 g/dL (13.3-17.7); LYMPHOCYTES # (AUTO) 0.3 10^3/uL (1.0-4.0); LYMPHOCYTES % (AUTO) 1 % (12-44); MEAN CORPUSCULAR HEMOGLOBIN 30 pg (25-34); MEAN CORPUSCULAR HGB CONC 31 g/dL (32-36); MEAN CORPUSCULAR VOLUME 97 fL (80-99); MEAN PLATELET VOLUME 9.9 fL (9.0-12.2); MONOCYTES # (AUTO) 0.7 10^3/uL (0.0-1.0); MONOCYTES % (AUTO) 3 % (0-12); NEUTROPHILS # (AUTO) 22.3 10^3/uL (1.8-7.8); NEUTROPHILS % (AUTO) 93 % (42-75); PLATELET COUNT 215 10^3/uL (130-400); WHITE BLOOD COUNT 24.1 10^3/uL (4.3-11.0)
[2022-02-17 05:43] LABS: POTASSIUM 4.4 MMOL/L (3.6-5.0)
[2022-02-17 05:48] LABS: PHOSPHORUS 2.9 MG/DL (2.3-4.7)
[2022-02-17 05:49] LABS: CREATININE SERUM 1.42 MG/DL (0.60-1.30)
[2022-02-17 05:51] LABS: MAGNESIUM 1.3 MG/DL (1.6-2.4)
[2022-02-17] MEDS: NS IV 1000 ML 1,000 ML IV SCH ×3 (06:03→20:07)
[2022-02-17] MEDS: KCL 20 MEQ TAB (K-DUR) PO SCH (06:05)
[2022-02-17] MEDS: MAGNESIUM 1 GM/100 ML IVPB 100 ML IV SCH ×5 (06:05→10:10)
[2022-02-17] MEDS: POTASSIUM CL 10MEQ/50ML IVPB 50 ML IV SCH (06:05)
[2022-02-17] MEDS: VASOPRESSIN INJECTION 20 UNIT in NS (IVPB) 100 ML IV SCH ×2 (07:58→20:00)
--- NOTE | 2022-02-17 08:09 | Tele-ICU Progress Note ---
Subjective Date Seen by a Provider: Feb 17, 2022 Time Seen by a Provider: 08:08 Subjective/Events-last exam Available chart/vitals/labs/images reviewed. Video assessment done using telemetry ICU camera, rest of exam as per RN. Discussion with the RN, exam as per RN. Hospital course This patient is admitted from [facility] with a complaint of shortness of breath and hypoxia. He has baseline requirement of oxygen 2 to 3 L but at this time he required 5 L. He has a suprapubic Gunderson catheter and reportedly he was up trended upon arrival. Today he is more alert but not oriented completely. He denies any nausea and vomiting. He is currently a DNR status. Arterial blood gas revealed a hypercarbic respiratory failure. Currently he is on Vapotherm 25% at 50 L. Urine output is adequate. Review of Systems ROS PER RN Sepsis Event Evaluation Height, Weight, BMI Height: 6'2.00" Weight: 186lbs. oz. 81.802752by; 22.63 BMI Method: Focused Exam Lactate Level 02/16/22 17:12: Lactic Acid Level 2.23*H 02/16/22 19:15: Lactic Acid Level 1.82 02/16/22 22:40: Lactic Acid Level 1.70 Exam Exam Patient acknowledged, consented, and participated in this virtual visit which was conducted using real time audio/video Vital Signs Date Time Temp Pulse Resp B/P (MAP) Pulse Ox O2 Delivery O2 Flow Rate FiO2 02/17/22 07:58 99 135/79 02/17/22 07:51 25.00 50.00 02/17/22 07:29 98 Vapotherm 25.00 50 02/17/22 07:00 99 02/17/22 07:00 105 135/79 97 Vapotherm 30.00 80.00 02/17/22 06:00 95 18 116/81 97 Vapotherm 30.00 80.00 02/17/22 05:00 69 12 143/64 97 Vapotherm 30.00 80.00 02/17/22 04:00 92 NIV Bilevel 60 02/17/22 04:00 71 15 97/54 99 Vapotherm 30.00 80.00 02/17/22 03:00 Vapotherm 30.00 80.00 02/17/22 03:00 73 26 110/58 96 Vapotherm 30.00 80.00 02/17/22 02:20 70 23 95 60.00 02/17/22 02:00 72 23 148/77 96 NIV Bilevel 60.00 02/17/22 01:00 70 21 115/69 96 NIV Bilevel 60.00 02/17/22 00:47 83 02/17/22 00:00 92 NIV Bilevel 60 02/17/22 00:00 73 24 116/59 92 NIV Bilevel 60.00 02/16/22 23:00 80 21 118/60 96 NIV Bilevel 60.00 02/16/22 22:15 80 25 96 60.00 02/16/22 22:00 80 26 118/57 91 NIV Bilevel 60.00 02/16/22 21:00 82 23 122/74 97 NIV Bilevel 60.00 02/16/22 20:45 84 25 115/81 94 NIV Bilevel 60.00 02/16/22 20:34 94 OxyMask 15.00 80 02/16/22 20:30 81 02/16/22 20:30 83 25 115/60 94 NIV Bilevel 60.00 02/16/22 20:13 24 109/56 89 NIV Bilevel 60.00 02/16/22 19:37 36.8 89 27 115/66 100 NIV Bilevel 02/16/22 19:22 100 NIV Bilevel 100 02/16/22 17:20 99 30 83 100.00 02/16/22 16:55 36.8 101 24 121/75 (90) 77 OxyMask I & O 02/17/22 06:59 Intake Total 1150 ml Output Total 850 ml Balance 300 ml Height & Weight Height: 6'2.00" Weight: 186lbs. oz. 81.534187ud; 22.63 BMI Method: General Appearance: Anxious, Chronically ill, Mild Distress Gastrointestinal: normal bowel sounds, non tender, soft Other comments PE PER RN Results Lab Laboratory Tests 02/16/22 17:12 02/17/22 05:14 Assessment/Plan Assessment/Plan 1. Acute on chronic hypoxic and hypercarbic respiratory failure slowly improving 2. Dehydration with sepsis on IV fluid therapy 3. Possible urinary tract infection with sepsis. 4. History of urethral stricture requiring suprapubic Gunderson catheter. 6. DNR status. 6. Acute and chronic kidney disease due to sepsis. Recommendations 1. Continue hydration with normal saline 2. Continue broad-spectrum antibiotics until we know the culture results and then de-escalate. 3. Monitor respiratory status and wean FiO2 as tolerated. 4. DVT prophylaxis with SCDs and Lovenox. 5. Video visit made and discussed with the DISH CARRIER. 6. Collaboration of care with bedside at consultants and IM physicians. Critical Care: Critically Ill Patient Time spent with patient (mins): 20 FESTUS VIVEROS MD Feb 17, 2022 08:08
--- NOTE | 2022-02-17 08:30 | Diagnostic Imaging Report ---
EXAMINATION: Chest, 1 view. HISTORY: Acute on chronic respiratory failure. Followup. COMPARISON: 02/16/2022. FINDINGS: Interval worsening bibasilar opacities, right greater than left. No large pleural effusion or pneumothorax. Stable cardiomegaly. There is calcified aortic atherosclerotic plaque. IMPRESSION: Worsening bibasilar opacities, right greater than left. Findings may represent increasing infection, edema, and/or atelectasis. Dictated by: Dictated on workstation # [id number]
[2022-02-17] MEDS: VANCOMYCIN 1 GM/NS 250 ML IVPB IV SCH ×2 (12:35)
[2022-02-17] MEDS: NOREPINEPHRINE 8 MG/250 ML 250 ML IV SCH (14:04)
--- NOTE | 2022-02-17 15:19 | History & Physical-Hospitalist ---
History of Present Illness HPI/Chief Complaint Kaiser Pham is an 81 year old male with PMH AFib, COPD, suprapubic catheter, recurrent hospitalizations due to pneumonia, who presented with shortness of breath. He denies cough. He denies fever. He is feeling tired. He denies chest pain. He denies nausea and vomiting. He was admitted from [facility]. Source: patient, RN/MD Exam Limitations: no limitations Date Seen 02/17/22 Time Seen by a Provider: 10:15 Attending Physician Mckinley Nichols MD PCP Admitting Physician: Marcy Segura MD Attending Physician: Marcy Segura MD Referring Physician Date of Admission Feb 16, 2022 at 18:40 Home Medications & Allergies Home Medications Reviewed patient Home Medication Reconciliation performed by pharmacy medication reconciliations commercial maintenance technician and/or nursing. Patients Allergies have been reviewed. Allergies Allergies Coded Allergies No Known Drug Allergies (Unverified01/23/12) Past Unrogai-Kiqfah-Rovmmu Hx Patient Social History Tobacco Use?: No Use of E-Cig and/or Vaping dev: No Substance use?: No Alcohol Use?: No Pt feels they are or have been: No Immunizations Up To Date First/Initial COVID19 Vaccinat: 2020 Second COVID19 Vaccination Rufino: 2020 Tetanus Booster (TDap): Unknown Hepatitis A: No Hepatitis B: No Current Status Advance Directives: Yes Advance Directive Location: Copy placed in chart Communicates: Verbally Primary Language: Icelandic Preferred Spoken Language: Icelandic Is interpretation needed?: No Past Medical History Surgeries: Abdominal, Cardiac, Eye Surgery, Joint Replacement, Orthopedic Pneumonia, COPD Currently Using CPAP: No Currently Using BIPAP: No Atrial Fibrillation, High Cholesterol, Hypertension Dementia Renal Failure Abdominal Hernia, Gastroesophageal Reflux, Polyps Arthritis, Fractures Hypothyroidsim Blood Disorders: Yes (ANEMIA) Family Medical History No Pertinent Family Hx LOOP RECORDER PLACED AND STRESS TEST 11/27/[address] RIVER 1. Patient tolerated Lexiscan well 2. No significant ischemia or infarction on SPECT images 3. Normal left ventricular size, EF 65% SUPRAPUBIC CATH AND CYSTOSCOPY 05/[address] GARRETT COLONOSCOPIES LEFT HIP FX/ORIF 01/[address] BERNAL WITH LATER REVISION Review of Systems Constitutional: weakness Respiratory: short of breath Cardiovascular: no symptoms reported Gastrointestinal: no symptoms reported Musculoskeletal: no symptoms reported Skin: no symptoms reported Psychiatric/Neurological: No Symptoms Reported Physical Exam Physical Exam Vital Signs Vital Signs - First Documented 02/16/22 02/16/22 02/16/22 16:55 17:20 19:22 Temp 36.8 Pulse 101 Resp 24 B/P (MAP) 121/75 (90) Pulse Ox 77 O2 Delivery OxyMask O2 Flow Rate 100.00 FiO2 100 Capillary Refill : Height, Weight, BMI Height: 6'2.00" Weight: 186lbs. oz. 81.500371jm; 22.63 BMI Method: General Appearance: No Apparent Distress, WD/WN HEENT: PERRL/EOMI, Pharynx Normal Neck: Normal Inspection, Supple Respiratory: Lungs Clear, No Respiratory Distress Cardiovascular: Regular Rate, Rhythm, No Murmur Gastrointestinal: Normal Bowel Sounds, Non Tender, Soft Extremity: Normal Inspection, No Pedal Edema Neurologic/Psychiatric: Alert, Normal Mood/Affect, Motor Weakness Skin: Normal Color, Warm/Dry Results Results/Procedures Labs Laboratory Tests 02/16/22 17:12 02/17/22 05:14 Patient resulted labs reviewed. Imaging: Reviewed Imaging Films, Reviewed Imaging Report Assessment/Plan Admission Diagnosis Severe sepsis due to pneumonia Admission Status: Inpatient Order (span 2 midnights) Reason for Inpatient Admission: Respiratory failure Assessment and Plan Severe sepsis Pneumonia Lactic acidosis MERVIN on CKD Acute on chronic respiratory failure with hypoxia CXR with bilateral infiltrates Lactic acid now normalized Cr improving IV antibiotics IV fluids TeleICU following Supplemental oxygen as needed AFib COPD Dementia Diagnosis/Problems Diagnosis/Problems (1) Acute and chronic respiratory failure with hypoxia Status: Acute (2) Severe sepsis Status: Acute (3) Pneumonia Status: Acute Qualifiers: Pneumonia type: due to unspecified organism Laterality: unspecified laterality Lung location: unspecified part of lung Qualified Codes: J18.9 - Pneumonia, unspecified organism (4) Lactic acidosis Status: Resolved Resolution Date/Time: 07/26/21 @ 17:32 (5) MERVIN (acute kidney injury) Status: Acute (6) Stage 3a chronic kidney disease Status: Chronic (7) Paroxysmal atrial fibrillation Status: Chronic (8) COPD (chronic obstructive pulmonary disease) Status: Chronic (9) Dementia Status: Chronic (10) Suprapubic catheter Status: Chronic NIKO BROWN MD Feb 17, 2022 15:19
[2022-02-17] MEDS: ACETAMINOPHEN 325 MG TABLET PO PRN (16:26)
[2022-02-17] MEDS: fentaNYL INJ 100 MCG/2 ML AMP IV PRN (23:00)
[2022-02-18] MEDS: RT-ALBUTEROL SULF 2.5 MG/3 ML PRE-MIX VIAL INH SCH ×6 (01:18→21:41)
[2022-02-18] MEDS: NS IV 1000 ML 1,000 ML IV SCH ×3 (05:00→18:57)
[2022-02-18] MEDS: NOREPINEPHRINE 8 MG/250 ML 250 ML IV SCH (05:29)
[2022-02-18] MEDS: CEFEPIME 1,000 MG/NS 50 ML IVPB IV SCH ×6 (05:29→18:55)
[2022-02-18] MEDS: VANCOMYCIN 1 GM/NS 250 ML IVPB IV SCH ×2 (05:29)
[2022-02-18] MEDS: KCL 20 MEQ TAB (K-DUR) PO SCH (05:30)
[2022-02-18] MEDS: VASOPRESSIN INJECTION 20 UNIT in NS (IVPB) 100 ML IV SCH (05:30)
[2022-02-18 05:38] LABS: BASOPHILS # (AUTO) 0.2 10^3/uL (0.0-0.1); BASOPHILS % (AUTO) 1 % (0-10); EOSINOPHILS # (AUTO) 0.6 10^3/uL (0.0-0.3); EOSINOPHILS % (AUTO) 3 % (0-10); HEMATOCRIT 29 % (40-54); HEMOGLOBIN 8.9 g/dL (13.3-17.7); LYMPHOCYTES # (AUTO) 1.4 10^3/uL (1.0-4.0); LYMPHOCYTES % (AUTO) 7 % (12-44); MEAN CORPUSCULAR HEMOGLOBIN 30 pg (25-34); MEAN CORPUSCULAR HGB CONC 31 g/dL (32-36); MEAN CORPUSCULAR VOLUME 99 fL (80-99); MEAN PLATELET VOLUME 10.3 fL (9.0-12.2); MONOCYTES % (AUTO) 5 % (0-12); NEUTROPHILS # (AUTO) 17.5 10^3/uL (1.8-7.8); NEUTROPHILS % (AUTO) 82 % (42-75); PLATELET COUNT 208 10^3/uL (130-400); WHITE BLOOD COUNT 21.3 10^3/uL (4.3-11.0)
[2022-02-18 05:49] LABS: POTASSIUM 3.6 MMOL/L (3.6-5.0)
[2022-02-18 05:51] LABS: CALCIUM 8.9 MG/DL (8.5-10.1)
[2022-02-18 05:55] LABS: CREATININE SERUM 1.09 MG/DL (0.60-1.30); PHOSPHORUS 2.7 MG/DL (2.3-4.7)
[2022-02-18] MEDS: MAGNESIUM 1 GM/100 ML IVPB 100 ML IV SCH (06:02)
[2022-02-18] MEDS: POTASSIUM CL 10MEQ/50ML IVPB 50 ML IV SCH ×3 (06:02→07:37)
[2022-02-18] MEDS ORDERED: POTASSIUM CL 10MEQ/50ML IVPB 100 ML IV ONE (06:05)
--- NOTE | 2022-02-18 09:37 | Tele-ICU Progress Note ---
Subjective Date Seen by a Provider: Feb 18, 2022 Time Seen by a Provider: 09:36 Subjective/Events-last exam (Tele-ICU Physician , Progress Note ) Available chart/ vitals / labs / Images reviewed Video assessment done using teleICU camera, rest of exam as per RN Discussed with RN , EXAM PER RN Events overnight : tried BIAP - did not tolerated Afebrile FiO2 - 3l I/O = pos Drips: 100 ns Pressors: , hemodynamically stable Consultants: Hospital course: 02/17 - Vapotherm 25% at 50 L. 02/18 - 3 l o2 A/P Acute on chronic hypoxic and hypercarbic respiratory failure slowly improving- on 3 L o2 today , CPM MERVIN -Dehydration with sepsis on IV fluid therapy- Cr improved - will decrease IVF rate Possible urinary tract infection with sepsis with History of urethral stricture requiring suprapubic Gunderson catheter. - cont abx , await cx Anemia - no acute bleeding noted - decreae IVF - follow Swallow eval DNR status. Lines : perip (Central Line Necessity Reviewed) Gunderson: suprpubic cath OG: Nutrition: Analgesia: Anxiety/ delirium VTE Prophylaxis: mo 30 Stress Ulcer Prophylaxis: na Plans in collaboration with bedside consultants and IM MDs. Discussed with RN to reach out if any questions or concerns A total of 23 minutes of critical care time was devoted to this patient today, required to treat and/or prevent further deterioration of critical care conditio n ( as above) . Sepsis Event Evaluation Height, Weight, BMI Height: 6'2.00" Weight: 186lbs. oz. 81.948692hf; 23.54 BMI Method: Focused Exam Lactate Level 02/16/22 17:12: Lactic Acid Level 2.23*H 02/16/22 19:15: Lactic Acid Level 1.82 02/16/22 22:40: Lactic Acid Level 1.70 Exam Exam Patient acknowledged, consented, and participated in this virtual visit which was conducted using real time audio/video Vital Signs Date Time Temp Pulse Resp B/P (MAP) Pulse Ox O2 Delivery O2 Flow Rate FiO2 02/18/22 09:00 66 20 158/69 95 High Flow N/C 3.00 02/18/22 08:00 61 18 166/75 96 High Flow N/C 3.00 02/18/22 08:00 36.0 02/18/22 07:00 60 02/18/22 07:00 62 16 150/79 94 High Flow N/C 3.00 02/18/22 06:33 95 High Flow N/C 3.00 02/18/22 06:00 61 20 154/77 95 High Flow N/C 3.00 02/18/22 05:00 60 14 162/87 95 High Flow N/C 3.00 02/18/22 04:00 66 23 147/75 94 High Flow N/C 3.00 02/18/22 04:00 36.4 High Flow N/C 3.00 02/18/22 04:00 97 High Flow N/C 3.00 02/18/22 03:00 57 22 131/57 94 High Flow N/C 3.00 02/18/22 02:00 61 28 142/75 95 High Flow N/C 3.00 02/18/22 01:18 94 High Flow N/C 3.00 02/18/22 01:00 60 45 145/66 92 High Flow N/C 3.00 02/18/22 00:44 60 02/18/22 00:00 36.6 High Flow N/C 3.00 02/18/22 00:00 80 33 157/63 94 High Flow N/C 3.00 02/17/22 23:06 97 High Flow N/C 3.00 02/17/22 23:01 High Flow N/C 3.00 02/17/22 23:00 62 21 130/71 98 Vapotherm 20.00 40.00 02/17/22 22:26 Vapotherm 20.00 40.00 02/17/22 22:17 99 Vapotherm 25.00 40 02/17/22 22:00 73 132/78 99 Vapotherm 25.00 50.00 02/17/22 21:00 73 144/64 99 Vapotherm 25.00 50.00 02/17/22 20:00 61 28 132/69 96 Vapotherm 25.00 50.00 02/17/22 20:00 95 Vapotherm 25.00 40 02/17/22 19:28 36.0 02/17/22 19:00 63 19 111/51 95 Vapotherm 25.00 50.00 02/17/22 19:00 67 02/17/22 18:24 95 Vapotherm 25.00 40 02/17/22 18:00 66 133/110 97 Vapotherm 25.00 50.00 02/17/22 17:00 63 21 129/74 96 Vapotherm 25.00 50.00 02/17/22 16:08 36.0 02/17/22 16:00 95 Vapotherm 25.00 40 02/17/22 16:00 66 134/70 92 Vapotherm 25.00 50.00 02/17/22 15:32 95 Vapotherm 25.00 40 02/17/22 15:00 103 32 119/66 94 Vapotherm 25.00 50.00 02/17/22 14:00 91 125/91 93 Vapotherm 25.00 50.00 02/17/22 13:00 83 25 127/75 95 Vapotherm 25.00 50.00 02/17/22 12:55 93 02/17/22 12:00 92 132/76 96 Vapotherm 25.00 50.00 02/17/22 11:54 97 Vapotherm 25.00 50 02/17/22 11:49 35.5 02/17/22 11:04 95 Vapotherm 25.00 40 02/17/22 11:00 92 12 116/66 97 Vapotherm 25.00 50.00 02/17/22 10:00 90 14 123/59 96 Vapotherm 25.00 50.00 I & O 02/18/22 07:00 Intake Total 3850 ml Output Total 1450 ml Balance 2400 ml Height & Weight Height: 6'2.00" Weight: 186lbs. oz. 81.762274zj; 23.54 BMI Method: General Appearance: No Apparent Distress, WD/WN HEENT: PERRL/EOMI, Pharynx Normal Neck: Normal Inspection, Supple Respiratory: Lungs Clear, No Respiratory Distress Cardiovascular: Regular Rate, Rhythm, No Murmur Gastrointestinal: normal bowel sounds, non tender, soft Extremity: Normal Inspection, No Pedal Edema Neurologic/Psychiatric: Alert, Normal Mood/Affect, Motor Weakness Skin: Normal Color, Warm/Dry Results Lab Laboratory Tests 02/16/22 17:12 02/17/22 05:14 02/18/22 04:40 Assessment/Plan Assessment/Plan JOSÉ MIGUEL GALLARDO MD Feb 18, 2022 09:37
--- NOTE | 2022-02-18 12:41 | ST Dysphagia Evaluation ---
Speech Evaluation-General Medical Diagnosis Severe Sepsis, Pneumonia Onset Date: Feb 16, 2022 Therapy Diagnosis Therapy Diagnosis: Oropharyngeal Dysphagia Precautions Precautions: Fall, Aspiration Precautions/Isolations: Aspiration, Fall Prevention, Standard Precautions Referral Referring Physician: Dr. Meng Reason for Referral: Evaluation/Treatment Medical History Pertinent Medical History: Atrial Fib, COPD, Dementia, Neuropathy Current History The patient is an 82 year old male with a past medical history of AFib, COPD, suprapubic catheter, and recurrent hospitalizations due to pneumonia, who presented with shortness of breath. CXR: 02/17/2022: Worsening bibasilar opacities, right greater than left. Findings may represent increasing infection, edema, and/or atelectasis. Reviewed History: Yes Speech PLF/Current-Dysphagia Prior Level of Function The patient was unable to provide the clinician with information regarding prior PO intake or swallowing difficulties/concerns due to his current level of confusion. The patient is currently receiving a dysphagia two consistency diet with nectar-thick liquids. Subjective The patient was seated upright in bed, awake and alert upon entrance to the patient's room. The patient greeted the clinician appropriately and was agreeable to participation in the clinical bedside swallowing evaluation. The patient is currently receiving supplemental oxygen via nasal cannula. Upon entrance, the patient had been throwing tissues out of his room door. The clinician cleaned the patient's tissues and politely requested the patient no l onger demonstrate the behavior. Cognitive Status Patient Orientation: Person, Confused Oral Motor Skills Dentition: Natural Current Food Consistancy: Dysphagia Soft, Alix Liquids Ability to Follow Directions: Poor Oral Expression Ability: Moderate Impairment Voice Voice Phonatory-Based Quality: Weak (Wet.) Voice Pitch: Normal Voice Loudness: Normal Face Facial Symmetry: Symmetrical (Grossly symmetrical at rest.) Oral-Facial Assessment Oral-Facial Dentition: Normal Labial Seal Description: Weak Volitional Dry Swallow: No Voluntary Cough: No Can Clear Throat Volitionally: No Productive Cough: Yes Productive Throat Clear: Yes Dysphagia Evaluation Consistencies Presented: Thin Liquid, Alix Thick Liquid, Honey Thick Liquid, Pureed Oral Phase: Reduced Oral Transit The patient was able to draw material from a teaspoon appropriately. No anterior spillage was appreciated. Delayed posterior transfer of bolus material was appreciated. Pharyngeal Phase: Multiple Swallow Attempts Laryngeal elevation was present to palpation. An increasingly wet vocal quality was present throughout the PO trials. The patient demonstrated a delayed cough with thin liquids, nectar-thick liquids, and honey-thick liquids. While overt s/s of suspected aspiration were not present with puree consistencies, the anna ent displayed increased respiratory effort. Dietary Recommendations: NPO Liquid Recommendations: NPO Recommendations: - NPO. - Frequent and excellent oral care to reduce the transfer of oral bacteria to the lungs should aspiration of secretions occur. - Moist swab for oral comfort, as necessary. - Essential medication crushed and placed in puree for administration. - Completion of a modified barium swallow evaluation to assess for the presence of aspiration with PO intake. The modified barium swallow has been scheduled for 02/19/22 at 1030. The results and recommendations were discussed with the patient and the patient's RN immediately following the evaluation. Dysphagia Evaluation Summary The patient displays suspected oropharyngeal dysphagia characterized by reduced lingual coordination and strength and poor airway protection in the presence of bolus material. The patient displayed s/s of suspected aspiration with thin liquids, nectar-thick liquids, and honey-thick liquids. No s/s of suspected aspiration were displayed with puree consistencies tested. Speech Short Term Goals Short Term Goals Short Term Goals 1. The patient, staff, and family will follow safe swallowing protocols with 90% accuracy, independently. Time Frame-STG: Three Days. Speech Range Ecologist Goals Range Ecologist Goals 1. The patient will tolerate the least restrictive diet consistency without s/s of suspected aspiration. Time Frame: One Week. Speech-Plan Treatment Plan Speech Therapy Treatment Plan: Continue Plan of Care Treatment Duration: Feb 25, 2022 Frequency: 2 times per week Estimated Hrs Per Day: .25 hour per day Rehab Potential: Poor Safety Risks/Education Teaching Recipient: Patient Teaching Methods: Discussion Response to Teaching: Reinforcement Needed Education Topics Provided: Results, Recommendations, Plan of Care Time Speech Therapy Time In: 12:14 Speech Therapy Time Out: 12:30 Total Billed Time: 16 Billed Treatment Time 1JOLYNN DYST LOY, ELIZABETH ST Feb 18, 2022 12:41
--- NOTE | 2022-02-18 13:40 | Physical Therapy Evaluation ---
PT Evaluation-General Medical Diagnosis Admission Date Feb 16, 2022 at 18:40 Medical Diagnosis: severe sepsis/pneumonia Onset Date: Feb 16, 2022 Therapy Diagnosis Therapy Diagnosis: generalized weakness/debility Height/Weight Height (Feet): 6 Height (Inches): 2.00 Weight (Pounds): 186 Precautions Precautions/Isolations: Aspiration, Fall Prevention, Standard Precautions, Pressure Ulcer Referral Physician: Taqueria Reason for Referral: Evaluation/Treatment Medical History Pertinent Medical History: Atrial Fib, COPD, Dementia, HTN, Neuropathy, Renal Insufficiency Current History EMS from [place] secondary to SOA and decreased SAO2 on 4L O2 (multiple hospital stays) Reviewed History: Yes Social History Home: [facility] Prior Prior Level of Function SCALE: Activities may be completed with or without assistive devices. 3-Zooqsnrkpu-rejwkmm completes the activity by him/herself with no assistance from a helper. 5-Set-up or Clean-up Assistance-helper sets up or cleans up; patient completes activity. [place] assists only prior to or following the activity. 4-Supervision or Touching Assistance-helper provides verbal cues and/or touching/steadying and/or contact guard assistance as patient completes activity. Assistance may be provided throughout the activity or intermittently. 3-Partial/Moderate Assistance-helper does LESS THAN HALF the effort. [place] lifts, holds or supports trunk or limbs, but provides less than half the effort. 2-Substantial/Maximal Assistance-helper does MORE THAN HALF the effort. [place] lifts or holds trunk or limbs and provides more than half the effort. 0-Ptihoymyh-knahcj does ALL the effort. Patient does none of the effort to complete the activity. Or, the assistance of 2 or more helpers is required for the patient to complete the activity. If activity was not attempted, code reason: 7-Patient Refused. 9-Not Applicable-not attempted and the patient did not perform the activity before the current illness, exacerbation or injury. 10-Not Attempted due to Environmental Limitations-(lack of equipment, weather restraints, etc.). 88-Not Attempted due to Medical Conditions or Safety Concerns. Bed Mobility: 4 Transfers (B,C,W/C): 4 Gait: 4 Indoor Mobility (Ambulation): Needed Some Help Stairs: Not Applicalbe Prior Devices Use: Walker PT Evaluation-Current Subjective Patient is very emotional. Agrees to PT. Objective Patient Orientation: Confused Attachments: Suprapubic Catheter ROM/Strength ROM Lower Extremities bilateral LE WFL Strength Lower Extremities 3/5 grossly bilateral LE Integumentary/Posture Integumentary "blotchy" RN made aware Sensory Vision: Wears Glasses Hearing: Functional Transfers Roll Left to Right (QC): 4 Sit to Lying (QC): 4 Lying to Sitting/Side of Bed(Q: 4 Sit to Stand (QC): 7 Chair/Hjz-em-Pqmsh Xfer(QC): 7 Gait Mode of Locomotion: Walk Anticipated Mode of Locomotion: Walk Walk 10 feet (QC): 7 Walk 50 ft with 2 Turns(QC): 7 Walk 150 ft (QC): 7 Gait Assistive Device: FWW Balance Sitting Static: Normal Sitting Dynamic: Normal Assessment/Needs 82 y.o. male, will be seen short term by skilled PT to address functional strength and mobility to improve current LOF. Rehab Potential: Guarded PT Care Home Goals Employment Adjudicator Goals PT Employment Adjudicator Goals Time Frame: Mar 01, 2022 Roll Left & Right (QC): 4 Sit to Lying (QC): 4 Lying-Sitting on Side/Bed(QC): 4 Sit to Stand (QC): 4 Chair/Dpd-wm-Sqdah Xfer(QC): 4 Toilet Transfer (QC): 4 Walk 10 feet (QC): 4 Walk 50ft with 2 Turns (QC): 4 PT Plan Problem List Problem List: Activity Tolerance, Functional Strength, Safety, Balance, Gait, Transfer Treatment/Plan Treatment Plan: Continue Plan of Care Treatment Plan: Bed Mobility, Education, Functional Activity Molly, Functional Strength, Gait, Safety, Therapeutic Exercise, Transfers Treatment Duration: Mar 01, 2022 Frequency: 6 times per week Estimated Hrs Per Day: .25 hour per day Patient and/or Family Agrees t: Yes Time/GCodes Time In: 1309 Time Out: 1341 Total Billed Treatment Time: 12 Total Billed Treatment 1 visit EVModC 12 min SHABBIR HOWARD PT Feb 18, 2022 13:40
--- NOTE | 2022-02-18 13:54 | Occupational Therapy Eval ---
OT Evaluation-General/PLF Medical Diagnosis Admission Date Feb 16, 2022 at 18:40 Medical Diagnosis: severe sepsis/pneumonia Onset Date: Feb 16, 2022 Therapy Diagnosis Therapy Diagnosis: reduced adl status Height/Weight Height (Feet): 6 Height (Inches): 2.00 Weight (Pounds): 186 Precautions Precautions/Isolations: Aspiration, Fall Prevention, Standard Precautions, Pressure Ulcer Referral Physician: Taqueria Referral Reason: Evaluation/Treatment Medical History Pertinent Medical History: Atrial Fib, Arthritis, COPD, Dementia, HTN, Neuropathy, Renal Insufficiency Additional Medical History suprapubic catheter Current History EMS from [place] secondary to SOA and decreased SAO2 on 4L O2 (multiple hospital stays). Pt is an Unreliable historian and unable to provide any PLOF. Per chart, pt is from [facility]. He does state that he uses a walker at baseline and will spend majority of his day sitting in a chair. Pt has a suprapubic catheter at baseline. Reviewed History: Yes Social History Home: [facility] ADL-Prior Level of Function SCALE: Activities may be completed with or without assistive devices. 6-Hjbzmjlzsj-yuocjyc completes the activity by him/herself with no assistance from a helper. 5-Set-up or Clean-up Assistance-helper sets up or cleans up; patient completes activity. [place] assists only prior to or following the activity. 4-Supervision or Touching Assistance-helper provides verbal cues and/or touching/steadying and/or contact guard assistance as patient completes activity. Assistance may be provided throughout the activity or intermittently. 3-Partial/Moderate Assistance-helper does LESS THAN HALF the effort. [place] lifts, holds or supports trunk or limbs, but provides less than half the effort. 2-Substantial/Maximal Assistance-helper does MORE THAN HALF the effort. [place] lifts or holds trunk or limbs and provides more than half the effort. 6-Xuhyhusek-prquvt does ALL the effort. Patient does none of the effort to complete the activity. Or, the assistance of 2 or more helpers is required for the patient to complete the activity. If activity was not attempted, code reason: 7-Patient Refused. 9-Not Applicable-not attempted and the patient did not perform the activity before the current illness, exacerbation or injury. 10-Not Attempted due to Environmental Limitations-(lack of equipment, weather restraints, etc.). 88-Not Attempted due to Medical Conditions or Safety Concerns. Self Care: Unknown Functional Cognition: Unknown OT Current Status Subjective Pt emotional/confused at OT arrival. Physical therapy assisting him back into bed. Appearance Pt left supine in bed, all needs within reach. RN notified. Mental Status/Objective Patient Orientation: Person Attachments: IV, Oxygen, Suprapubic Catheter Current Hand Dominance: Right Upper Extremity ROM WNL Upper Extremity Strength 4/5 throughout ADL-Treatment Toileting Hygiene (QC): 1 (suprapubic catheter) Pt returning to supine at OT arrival. Physical therapy reports that he was SBA for bed mobility but refused to stand. Pt declines all adls and OOB/EOB activities. He was agreeable to UE exercises as long as he could keep the other arm under the blanket. Activity terminated early as pt was easily distracted and unable to follow directions. He completed RUE shoulder flexion and bicep curl only. 1x5 each. Education OT Patient Education: Correct positioning, Exercise program, Purpose of tx/functional activities, Rehab process, Safety issues Teaching Recipient: Patient Teaching Methods: Demonstration, Discussion Response to Teaching: Reinforcement Needed OT Barbering Instructor Goals Barbering Instructor Goals Time Frame: Mar 11, 2022 Eating (QC): 4 Oral Hygiene (QC): 4 Toileting Hygiene (QC): 3 Upper Body Dressing (QC): 3 Lower Body Dressing (QC): 3 1=Demonstrate adherence to instructed precautions during ADL tasks. 2=Patient will verbalize/demonstrate understanding of assistive dev ices/modifications for ADL. 3=Patient will improve strength/tolerance for activity to enable patient to perform ADL's. OT Education/Plan Problem List/Assessment Assessment: Decreased Activ Tolerance, Decreased Safety Aware, Decreased UE Strength, Impaired Cognition, Impaired Self-Care Skills Discharge Recommendations Plan/Recommendations: Continue POC Comment Further assessment warranted to determine true baseline Target Placement anticipate return to longterm with continued staff assist once medically stable. Treatment Plan/Plan of Care Treatment,Training & Education: Yes Patient would benefit from OT for education, treatment and training to promote independence in ADL's, mobility, safety and/or upper extremity function for A DL's. Plan of Care: ADL Retraining, Cognitive Retraining, Functional Mobility, Group Exercise/Act as Ind, UE Funct Exercise/Act, W/C Management Training Treatment Duration: Mar 11, 2022 Frequency: 3 times per week (3-5x/week) Estimated Hrs Per Day: .25 hour per day Rehab Potential: Guarded Time/GCodes Start Time: 13:18 Stop Time: 13:27 Total Time Billed (hr/min): 9 Billed Treatment Time 1 visit Shalini Quezada OT Feb 18, 2022 13:54
[2022-02-18] MEDS ORDERED: GUAI100L13 PO (14:01)
[2022-02-18] MEDS ORDERED: LEVO500T81 PO (14:01)
[2022-02-18] MEDS ORDERED: ACET200V4 NEB (14:01)
[2022-02-18] MEDS ORDERED: CEFD300C3 PO (14:01)
[2022-02-18] MEDS: ENOXAPARIN 40 MG/0.4 ML (LOVENOX) SYR SC SCH (19:21)
[2022-02-18] MEDS ORDERED: diphenhydrAMINE 50 MG/ML INJ (BENADRYL) IVP PRN (20:00)
[2022-02-18] MEDS ORDERED: WATER (STERILE) FOR INJ 10 ML BTL INJ SCH (20:15)
[2022-02-18] MEDS ORDERED: ZIPRASIDONE 20 MG INJ (GEODON) VIAL IM PRN (20:15)
--- NOTE | 2022-02-18 21:30 | Progress Note - Hospitalist ---
Subjective HPI/CC On Admission Date Seen by Provider: Feb 18, 2022 Time Seen by Provider: 09:40 Kaiser Pham is an 81 year old male with PMH AFib, COPD, suprapubic catheter, recurrent hospitalizations due to pneumonia, who presented with shortness of breath. He denies cough. He denies fever. He is feeling tired. He denies chest pain. He denies nausea and vomiting. He was admitted from [facility]. Subjective/Events-last exam He is feeling better. He is not short of breath. He denies pain. Focused Exam Lactate Level 02/16/22 17:12: Lactic Acid Level 2.23*H 02/16/22 19:15: Lactic Acid Level 1.82 02/16/22 22:40: Lactic Acid Level 1.70 Objective Exam Vital Signs Vital Signs Date Time Temp Pulse Resp B/P (MAP) Pulse Ox O2 Delivery O2 Flow Rate FiO2 02/18/22 19:48 36.6 104 20 132/76 95 High Flow N/C 3.00 02/17/22 22:17 40 Capillary Refill : General Appearance: No Apparent Distress, Chronically ill Respiratory: No Respiratory Distress, Decreased Breath Sounds Cardiovascular: Regular Rate, Rhythm, No Murmur Gastrointestinal: Normal Bowel Sounds, Soft Extremity: Normal Inspection, No Pedal Edema Neurologic/Psychiatric: Alert, Normal Mood/Affect Skin: Normal Color, Warm/Dry Results/Procedures Lab Laboratory Tests 02/18/22 04:40 Patient resulted labs reviewed. Imaging: Reviewed Imaging Films, Reviewed Imaging Report Assessment/Plan Assessment and Plan Assess & Plan/Chief Complaint Severe sepsis Pneumonia Lactic acidosis MERVIN on CKD Acute on chronic respiratory failure with hypoxia Concern for aspiration Consult speech therapy Transition to Unasyn Supplemental oxygen as needed AFib COPD Dementia Diagnosis/Problems Diagnosis/Problems (1) Acute and chronic respiratory failure with hypoxia Status: Acute (2) Severe sepsis Status: Acute (3) Pneumonia Status: Acute Qualifiers: Pneumonia type: due to unspecified organism Laterality: unspecified laterality Lung location: unspecified part of lung Qualified Codes: J18.9 - Pneumonia, unspecified organism (4) Lactic acidosis Status: Resolved Resolution Date/Time: 07/26/21 @ 17:32 (5) MERVIN (acute kidney injury) Status: Acute (6) Stage 3a chronic kidney disease Status: Chronic (7) Paroxysmal atrial fibrillation Status: Chronic (8) COPD (chronic obstructive pulmonary disease) Status: Chronic (9) Dementia Status: Chronic (10) Suprapubic catheter Status: Chronic NIKO BROWN MD Feb 18, 2022 21:30
[2022-02-18] MEDS: AMPICILLIN/SULBACTAM INJECTION 1.5 GM in NS (IVPB) 100 ML IV SCH (22:39)
[2022-02-18] MEDS: fentaNYL INJ 100 MCG/2 ML AMP IV PRN (23:01)
[2022-02-19] MEDS: RT-ALBUTEROL SULF 2.5 MG/3 ML PRE-MIX VIAL INH SCH ×6 (02:23→21:24)
[2022-02-19] MEDS: AMPICILLIN/SULBACTAM INJECTION 1.5 GM in NS (IVPB) 100 ML IV SCH ×4 (02:40→19:49)
[2022-02-19 05:38] LABS: BASOPHILS # (AUTO) 0.1 10^3/uL (0.0-0.1); BASOPHILS % (AUTO) 0 % (0-10); EOSINOPHILS # (AUTO) 0.3 10^3/uL (0.0-0.3); EOSINOPHILS % (AUTO) 3 % (0-10); HEMATOCRIT 30 % (40-54); HEMOGLOBIN 9.2 g/dL (13.3-17.7); LYMPHOCYTES # (AUTO) 1.1 10^3/uL (1.0-4.0); LYMPHOCYTES % (AUTO) 9 % (12-44); MEAN CORPUSCULAR HEMOGLOBIN 30 pg (25-34); MEAN CORPUSCULAR HGB CONC 31 g/dL (32-36); MEAN CORPUSCULAR VOLUME 96 fL (80-99); MEAN PLATELET VOLUME 9.8 fL (9.0-12.2); MONOCYTES # (AUTO) 0.8 10^3/uL (0.0-1.0); MONOCYTES % (AUTO) 6 % (0-12); NEUTROPHILS # (AUTO) 9.4 10^3/uL (1.8-7.8); NEUTROPHILS % (AUTO) 79 % (42-75); PLATELET COUNT 221 10^3/uL (130-400); WHITE BLOOD COUNT 11.8 10^3/uL (4.3-11.0)
[2022-02-19 05:52] LABS: POTASSIUM 3.5 MMOL/L (3.6-5.0)
[2022-02-19 05:57] LABS: PHOSPHORUS 2.7 MG/DL (2.3-4.7)
[2022-02-19 05:58] LABS: CREATININE SERUM 1.01 MG/DL (0.60-1.30)
[2022-02-19 06:00] LABS: MAGNESIUM 1.7 MG/DL (1.6-2.4)
[2022-02-19] MEDS: NS IV 1000 ML 1,000 ML IV SCH (10:06)
--- NOTE | 2022-02-19 11:21 | Occ Therapy Progress Note ---
Therapy Progress Note Attempted to see pt for OT treatment. Pt currently out of room for Barium Swallow. OT to attempt again if schedule allows. Shalini Zepeda OT Feb 19, 2022 11:21
[2022-02-19] MEDS ORDERED: BARIUM for suspension 96% w/w (Vanilla Silq Medium Density) PO ONE (11:30)
--- NOTE | 2022-02-19 11:36 | Diagnostic Imaging Report ---
INDICATION: Dysphagia. TECHNIQUE: The study was performed in conjunction with Speech Pathology. Video fluoroscopy was performed during the swallowing of barium in multiple consistencies. A total of 1.1 minute of fluoroscopic time was utilized. FINDINGS: The patient ingested thin liquid as well as nectar, honey, and puree consistencies. There was deep laryngeal penetration during the swallowing of thin liquid to the level of the cords. There also appeared to have been episodes of shallow penetration during ingestion of nectar and honey consistencies. No aspiration was observed. There is significant vallecular and pyriform sinus residue with all consistencies. IMPRESSION: Abnormal video swallow with deep laryngeal penetration with thin liquid, as described. There is moderate residue in the vallecula and pyriform sinuses. No aspiration was observed. Dictated by: Dictated on workstation # [id number]
--- NOTE | 2022-02-19 11:56 | Occupational Ther Daily Note ---
OT Current Status-Daily Note Subjective Pt emotional and very confused this date. Appearance Pt left supine in bed, all needs within reach at OT departure. Mental Status/Objective Patient Orientation: Person, Confused ADL-Treatment Therapy Code Descriptions/Definitions Functional [place]thon Measure: 0=Not Assessed/NA 4=Minimal Assistance 1=Total Assistance 5=Supervision or Setup 2=Maximal Assistance 6=Modified [place]thon 3=Moderate Assistance 7=Complete IndependenceSCALE: Activities may be completed with or without assistive devices. 5-Zxsgjgungd-clzxjpr completes the activity by him/herself with no assistance from a helper. 5-Set-up or Clean-up Assistance-helper sets up or cleans up; patient completes activity. [place] assists only prior to or following the activity. 4-Supervision or Touching Assistance-helper provides verbal cues and/or touching/steadying and/or contact guard assistance as patient completes activity. Assistance may be provided throughout the activity or intermittently. 3-Partial/Moderate Assistance-helper does LESS THAN HALF the effort. [place] lifts, holds or supports trunk or limbs, but provides less than half the effort. 2-Substantial/Maximal Assistance-helper does MORE THAN HALF the effort. [place] lifts or holds trunk or limbs and provides more than half the effort. 8-Ketqfvazm-fsdbjd does ALL the effort. Patient does none of the effort to complete the activity. Or, the assistance of 2 or more helpers is required for the patient to complete the activity. If activity was not attempted, code reason: 7-Patient Refused. 9-Not Applicable-not attempted and the patient did not perform the activity before the current illness, exacerbation or injury. 10-Not Attempted due to Environmental Limitations-(lack of equipment, weather restraints, etc.). 88-Not Attempted due to Medical Conditions or Safety Concerns. Pt supine in bed at OT arrival. He just returned to the floor from barium swallow. Pt is emotional and very confused. He presents with Tangential conversation and paranoia. Every time a person passes by the room or he hears laughter he verbalizes that those individuals are talking about him. OT Attempts to redirect multiple times, however unsuccessful. Pt denies using manual toothbrush for oral care as he reports he has broken teeth and that he should only use his electric toothbrush. He was agreeable to oral sponge. Pt is currently NPO. Education OT Patient Education: Purpose of tx/functional activities, Safety issues Teaching Recipient: Patient Teaching Methods: Demonstration, Discussion Response to Teaching: Return Demonstration, Reinforcement Needed OT Disability Examiner Goals Disability Examiner Goals Time Frame: Mar 11, 2022 Eating (QC): 4 Oral Hygiene (QC): 4 Toileting Hygiene (QC): 3 Upper Body Dressing (QC): 3 Lower Body Dressing (QC): 3 1=Demonstrate adherence to instructed precautions during ADL tasks. 2=Patient will verbalize/demonstrate understanding of assistive devices/modifications for ADL. 3=Patient will improve strength/tolerance for activity to enable patient to perform ADL's. OT Education/Plan Problem List/Assessment Assessment: Decreased Activ Tolerance, Decreased Safety Aware, Decreased UE Strength, Impaired Cognition, Impaired Funct Balance, Impaired Self-Care Skills Discharge Recommendations Plan/Recommendations: Continue POC Treatment Plan/Plan of Care Treatment,Training & Education: Yes Patient would benefit from OT for education, treatment and training to promote independence in ADL's, mobility, safety and/or upper extremity function for ADL's. Plan of Care: ADL Retraining, Cognitive Retraining, Functional Mobility, Group Exercise/Act as Ind, UE Funct Exercise/Act, W/C Management Training Treatment Duration: Mar 11, 2022 Frequency: 3 times per week (3-5x/week) Estimated Hrs Per Day: .25 hour per day Rehab Potential: Poor Time/GCodes Start Time: 11:36 Stop Time: 11:49 Total Time Billed (hr/min): 13 Billed Treatment Time 1 visit ADL Shalini Zepeda OT Feb 19, 2022 11:56
--- NOTE | 2022-02-19 12:10 | ST Mod Barium Swallow ---
Speech Evaluation-General Medical Diagnosis Severe Sepsis, Pneumonia Onset Date: Feb 16, 2022 Therapy Diagnosis Therapy Diagnosis: Moderate Oropharyngeal Dysphagia Precautions Precautions: Fall, Aspiration Precautions/Isolations: Aspiration, Fall Prevention, Standard Precautions Referral Referring Physician: Dr. Meng Reason for Referral: Evaluation/Treatment Medical History Pertinent Medical History: Atrial Fib, Arthritis, COPD, Dementia, HTN, Neuropathy, Renal Insufficiency Current History The patient is an 82 year old male with a past medical history of AFib, COPD, suprapubic catheter, and recurrent hospitalizations due to pneumonia, who presented with shortness of breath. CXR: 02/17/2022: Worsening bibasilar opacities, right greater than left. Findings may represent increasing infection, edema, and/or atelectasis. Reviewed History: Yes Speech Mod Barium Swallow Prior Level of Function Per patient's chart, the patient's prior level of function was a dysphagia two consistency diet with nectar-thick liquid. The patient was recently evaluated at the bedside by this clinician for oropharyngeal swallowing function update. The patient displayed s/s of suspected aspiration with each liquid consistency provided, regardless of viscosity. Due to the patient's consistent s/s of suspected aspiration and his hospitalization secondary to pneumonia, a modified barium swallow evaluation was recommended. To note, the patient was unable to follow verbal directions for completion of an oral motor evaluation. Oral Motor Skills Volitional Dry Swallow: No Voluntary Cough: Yes Can Clear Throat Volitionally: Yes Textures-Lateral View Lateral View Food Presentation: Thin Liquid via Spoon, [place] Liquid via Spoon, [place] Liquid via Straw, Honey Liquid via Spoon, Pureed Solids, Regular Solids (The patient refused solid consistencies attempted by the clinician.) Oral Phase Labial Closure: No Impairment (WFL) Bolus Formation Pooling L/R: Mild Impairment Bolus Formation Placement: No Impairment (WFL) A/P Lingual Propulsion: Moderate Impairment Oral Phase Residue: Moderate Impairment The patient demonstrated a moderate oral impairment to the swallowing function. The patient was able to adequately and appropriately remove the bolus from the teaspoon and straw. Anterior spillage of the material was not appreciated. The patient displayed poorly coordinated lingual movements to aid in bolus formation and posterior transfer. Consistent premature spillage of bolus material was visualized to the valleculae and laryngeal surface of the epiglottis. Pharyngeal Phase Swallow Response: Mild Impairment Base of Tongue: Moderate Impairment Epiglottic Movement: Moderate Impairment Laryngeal Elevation: No Impairment (WFL) Vallecular Residue: Moderate Pharyngeal Wall Residue: Mild Laryngeal Penetration: Moderate Aspiration Observations: Mild The patient demonstrated a moderate deficit to the pharyngeal swallow function. A delayed onset of the swallow occurred, with the head of the bolus reaching the valleculae and laryngeal surface of the epiglottis prior to the swallow trigger. Laryngeal elevation and hyo-laryngeal excursion appeared appropriate and complete. Upon inversion of the epiglottis, the epiglottis would come in contact with the posterior pharyngeal wall, ceasing complete inversion and closure of the laryngeal vestibule. The incomplete closure would allow for consistent laryngeal penetration of thin liquids (to the level of the true vocal cords), nectar-thick liquids (mid surface of the laryngeal edge of the epiglottis), honey-thick liquid, and puree (trace). Continued laryngeal penetration with subsequent silent aspiration occurred with thin liquids and nectar-thick liquids upon subsequent dry swallows due to the moderate residual material which remained in the valleculae and pyriform sinuses. While direct aspiration was not viewed of the honey-thick liquid and puree residue, the continued laryngeal penetration that occurred and the diffuse pharyngeal residue leads the clinician to suspect the patient is at a high risk for aspiration with these consistencies with continued intake (a complete meal) and additional time. Moderately reduced base of tongue retraction and pharyngeal wall contractions were present. A mi nimal restriction was present at the cricopharyngeal region, however, complete clearance of bolus material occurred. The patient refused trials of the solid consistency. The patient was unable to follow verbal instructions regardless of direct modeling in attempts to provide maneuvers and strategies to eliminate aspiration. Summary/Impressions The patient demonstrates moderate oropharyngeal dysphagia characterized by decreased lingual coordination, incomplete epiglottic inversion, poor airway protection in the presence of bolus material, decreased laryngeal sensation, reduced base of tongue retraction and decreased posterior wall contraction. Silent (trace to mild) was visualized with thin liquids and nectar-thick liquids following the swallow. Due to the diffuse residue which remained on pharyngeal structures following the swallow with honey-thick and puree consistencies, as well as, the continued laryngeal penetration which occurred with residual material of thin and nectar-thick liquids, suspected aspiration is likely with the residual material of honey-thick and puree consistencies. Recommendations: - The patient should remain NPO. - Frequent and excellent oral care to reduce the transfer of oral bacteria to the lungs should aspiration of secretions occur. - As the patient is unable to follow verbal instructions (regardless of direct modeling), skilled speech pathology is not recommended at this time. - A discussion with the patient and the patient's DPOA is recommended for direction of long-term nutrition and hydration goals. Continued aspiration of PO consistencies is suspected by this clinician which may result in continued respiratory infections. If the patient's DPOA does not wish to pursue alt ernative sources of nutrition, hydration, and medication (PEG), the least aspirated PO consistency visualized was a dysphagia one diet consistency with honey-thick liquids. To note, the clinician does suspect high aspiration risks and likelihood of a pureed diet with honey-thick liquids. - The recommendations were discussed with the patient and the patient's RN. Comprehension of the material is not likely by the patient due to his current cognitive status. Speech Short Term Goals Short Term Goals Short Term Goals 1. The patient, staff, and family will follow safe swallowing protocols with 90% accuracy, independently. Time Frame-STG: Three Days. Speech Longterm Goals Arterial Embalmer Goals 1. The patient will tolerate the least restrictive diet consistency without s/s of suspected aspiration. Time Frame: One Week. Speech-Plan Treatment Plan Speech Therapy Treatment Plan: Discontinue ST Treatment Duration: Feb 25, 2022 Frequency: 2 times per week Estimated Hrs Per Day: .25 hour per day Rehab Potential: Poor Safety Risks/Education Teaching Recipient: Patient Teaching Methods: Discussion Response to Teaching: Unable to Comprehend Education Topics Provided: Results of the MBS, Recommendations, Plan of Care Time Speech Therapy Time In: 11:00 Speech Therapy Time Out: 11:30 Total Billed Time: 30 Billed Treatment Time 1, MOD, DYST No ANA THOMPSON Feb 19, 2022 12:10
--- NOTE | 2022-02-19 14:18 | Physical Therapy Daily Note ---
PT Daily Note-Current Subjective Pt. somewhat confused and definitely depressed. Initially refuses any movement and states he has given up, "I would like to gt this over with so no one has to worry about me" Pt. repeatedly refuses ther ex and or up to side of bed or in recliner. Pt. eventually does a few LE exs. c/o he is so cold . States he is wor ried he will need to cough up phlegm and wont have anything near him to spit it in. However pt. has 2 full boxes of kleenex sitting next to him in bed and 3 kleenex in his hand Pain Location: No Pain Reported Mental Status Patient Orientation: Confused Attachments: IV Transfers SCALE: Activities may be completed with or without assistive devices. 3-Zkkkwqyvpc-pbpuzkt completes the activity by him/herself with no assistance from a helper. 5-Set-up or Clean-up Assistance-helper sets up or cleans up; patient completes activity. [place] assists only prior to or following the activity. 4-Supervision or Touching Assistance-helper provides verbal cues and/or touching/steadying and/or contact guard assistance as patient completes activity. Assistance may be provided throughout the activity or intermittently. 3-Partial/Moderate Assistance-helper does LESS THAN HALF the effort. [place] lifts, holds or supports trunk or limbs, but provides less than half the effort. 2-Substantial/Maximal Assistance-helper does MORE THAN HALF the effort. [place] lifts or holds trunk or limbs and provides more than half the effort. 8-Puwgwvvqz-hojvin does ALL the effort. Patient does none of the effort to complete the activity. Or, the assistance of 2 or more helpers is required for the patient to complete the activity. If activity was not attempted, code reason: 7-Patient Refused. 9-Not Applicable-not attempted and the patient did not perform the activity before the current illness, exacerbation or injury. 10-Not Attempted due to Environmental Limitations-(lack of equipment, weather restraints, etc.). 88-Not Attempted due to Medical Conditions or Safety Concerns. refused repeatedly Exercises Supine Ex: Ankle pumps, Heel Slides, Straight leg raise Supine Reps: 15 Treatments pt. eventually agreed to a few LE exs and wanted his heels free so pillow was positioned to float heels., call jeff and kleenex at his side, this VP COMMUNICATIONS reviewed the importance of positive attitude and activity and movement for his health Assessment Current Status: Poor Progress very little participation in therapy PT Retirement Benefits Specialist Goals Skilled Nursing Goals PT Retirement Benefits Specialist Goals Time Frame: Mar 01, 2022 Roll Left & Right (QC): 4 Sit to Lying (QC): 4 Lying-Sitting on Side/Bed(QC): 4 Sit to Stand (QC): 4 Chair/Xdc-oj-Hcxlk Xfer(QC): 4 Toilet Transfer (QC): 4 Walk 10 feet (QC): 4 Walk 50ft with 2 Turns (QC): 4 PT Plan Treatment/Plan Treatment Plan: Continue Plan of Care Treatment Plan: Bed Mobility, Education, Functional Activity Molly, Functional Strength, Gait, Safety, Therapeutic Exercise, Transfers Treatment Duration: Mar 01, 2022 Frequency: 6 times per week Estimated Hrs Per Day: .25 hour per day Patient and/or Family Agrees t: Yes Time/GCodes Time In: 1400 Time Out: 1415 Total Billed Treatment Time: 15 Total Billed Treatment 1,EX15m SHYANNE HICKS VP COMMUNICATIONS Feb 19, 2022 14:18
[2022-02-19] MEDS ORDERED: SALINE NASAL SPRAY (OCEAN) 45 ML BTL NS PRN (15:30)
[2022-02-19] MEDS ORDERED: SOTALOL 80 MG (BETAPACE) TAB PO NR (17:15)
--- NOTE | 2022-02-19 17:15 | Progress Note - Hospitalist ---
Subjective HPI/CC On Admission Date Seen by Provider: Feb 19, 2022 Time Seen by Provider: 11:20 Kaiser Pham is an 81 year old male with PMH AFib, COPD, suprapubic catheter, recurrent hospitalizations due to pneumonia, who presented with shortness of breath. He denies cough. He denies fever. He is feeling tired. He denies chest pain. He denies nausea and vomiting. He was admitted from [facility]. Subjective/Events-last exam He is confused. He denies shortness of breath. He denies pain. Focused Exam Lactate Level 02/16/22 17:12: Lactic Acid Level 2.23*H 02/16/22 19:15: Lactic Acid Level 1.82 02/16/22 22:40: Lactic Acid Level 1.70 Objective Exam Vital Signs Vital Signs Date Time Temp Pulse Resp B/P (MAP) Pulse Ox O2 Delivery O2 Flow Rate FiO2 02/19/22 15:20 36.9 118 18 139/87 96 High Flow N/C 3.00 02/17/22 22:17 40 Capillary Refill : General Appearance: No Apparent Distress, Chronically ill Respiratory: No Respiratory Distress, Decreased Breath Sounds Cardiovascular: No Murmur, Tachycardia Gastrointestinal: Normal Bowel Sounds, Soft Extremity: Normal Inspection, No Pedal Edema Neurologic/Psychiatric: Alert, Normal Mood/Affect Results/Procedures Lab Laboratory Tests 02/19/22 05:25 Patient resulted labs reviewed. Assessment/Plan Assessment and Plan Assess & Plan/Chief Complaint Severe sepsis Aspiration pneumonia Lactic acidosis MERVIN on CKD Acute on chronic respiratory failure with hypoxia Concern for aspiration Speech therapy consulted Modified barium swallow with Continue Unasyn Supplemental oxygen as needed AFib COPD Dementia Continue home meds Diagnosis/Problems Diagnosis/Problems (1) Acute and chronic respiratory failure with hypoxia Status: Acute (2) Severe sepsis Status: Acute (3) Pneumonia Status: Acute Qualifiers: Pneumonia type: due to unspecified organism Laterality: unspecified laterality Lung location: unspecified part of lung Qualified Codes: J18.9 - Pneumonia, unspecified organism (4) Lactic acidosis Status: Resolved Resolution Date/Time: 07/26/21 @ 17:32 (5) MERVIN (acute kidney injury) Status: Acute (6) Stage 3a chronic kidney disease Status: Chronic (7) Paroxysmal atrial fibrillation Status: Chronic (8) COPD (chronic obstructive pulmonary disease) Status: Chronic (9) Dementia Status: Chronic (10) Suprapubic catheter Status: Chronic NIKO BROWN MD Feb 19, 2022 17:15
[2022-02-19] MEDS: ASPIRIN E.C. 81 MG (ECOTRIN) TAB PO SCH (17:39)
[2022-02-19] MEDS: APIXABAN 2.5 MG (ELIQUIS) TABLET PO SCH (17:39)
[2022-02-19] MEDS: D5 1/2 NS W/KCL 20 MEQ/L 1,000 ML IV SCH (18:48)
[2022-02-19] MEDS: guaiFENesin (MUCINEX) 600 MG TAB PO SCH (21:58)
[2022-02-19] MEDS: MELATONIN 3 MG TABLET PO SCH (21:58)
[2022-02-20] MEDS: RT-ALBUTEROL SULF 2.5 MG/3 ML PRE-MIX VIAL INH SCH ×4 (02:36→23:43)
[2022-02-20] MEDS: AMPICILLIN/SULBACTAM INJECTION 1.5 GM in NS (IVPB) 100 ML IV SCH ×4 (03:52→21:18)
[2022-02-20] MEDS: APIXABAN 2.5 MG (ELIQUIS) TABLET PO SCH ×3 (05:11→21:34)
[2022-02-20 06:58] LABS: BASOPHILS # (AUTO) 0.1 10^3/uL (0.0-0.1); BASOPHILS % (AUTO) 1 % (0-10); EOSINOPHILS # (AUTO) 0.2 10^3/uL (0.0-0.3); EOSINOPHILS % (AUTO) 2 % (0-10); HEMATOCRIT 35 % (40-54); LYMPHOCYTES % (AUTO) 9 % (12-44); MEAN CORPUSCULAR HEMOGLOBIN 30 pg (25-34); MEAN CORPUSCULAR HGB CONC 31 g/dL (32-36); MEAN CORPUSCULAR VOLUME 96 fL (80-99); MEAN PLATELET VOLUME 10.2 fL (9.0-12.2); MONOCYTES # (AUTO) 0.9 10^3/uL (0.0-1.0); MONOCYTES % (AUTO) 8 % (0-12); NEUTROPHILS # (AUTO) 8.7 10^3/uL (1.8-7.8); NEUTROPHILS % (AUTO) 78 % (42-75); PLATELET COUNT 221 10^3/uL (130-400); WHITE BLOOD COUNT 11.1 10^3/uL (4.3-11.0)
[2022-02-20 07:20] LABS: CALCIUM 9.5 MG/DL (8.5-10.1); CREATININE SERUM 1.08 MG/DL (0.60-1.30); MAGNESIUM 2.2 MG/DL (1.6-2.4); PHOSPHORUS 2.8 MG/DL (2.3-4.7); POTASSIUM 3.8 MMOL/L (3.6-5.0)
--- NOTE | 2022-02-20 08:19 | Speech Therapy Progress Note ---
Therapy Progress Note Following a discussion with the veterans rehabilitation counselor, the clinician will attempt to clarify the recommendations for the patient made the day prior following a modified barium swallow evaluation. The patient silently aspirates (mild) thin liquid and nectar-thick liquid (mild). High suspicion of aspiration following the swallow is present with honey-thick liquids and puree residue. With the presence and high likelihood of continued aspiration of P.O. consistencies, the clinician is unable to recommend an oral diet. The clinician recommends the patient remain N.P.O. The clinician recommends a discussion with the patient's DPOA regarding alternative sources of nutrition (PEG tube) as the swallow function is not expe cted to improve. If the patient's DPOA does not feel a PEG tube aligns with the patient's wishes or quality of life goals, the clinician recommends discussions regarding hospice. If the DPOA decides to pursue hospice (understanding the risks of continued aspiration and pneumonia), the least aspirated consistency for the patient would be pureed with honey-thick liquids. Speech pathology to sign off as skilled services are not warranted as the patient is unable to follow verbal instruction to complete skilled therapy. Please see recommendations from the swallow study below: "Recommendations: - The patient should remain NPO. - Frequent and excellent oral care to reduce the transfer of oral bacteria to the lungs should aspiration of secretions occur. - As the patient is unable to follow verbal instructions (regardless of direct modeling), skilled speech pathology is not recommended at this time. - A discussion with the patient and the patient's DPOA is recommended for direction of long-term nutrition and hydration goals. Continued aspiration of PO consistencies is suspected by this clinician which may result in continued respiratory infections. If the patient's DPOA does not wish to pursue alternative sources of nutrition, hydration, and medication (PEG), the least aspirated PO consistency visualized was a dysphagia one diet consistency with honey-thick liquids. To note, the clinician does suspect high aspiration risks and likelihood of a pureed diet with honey-thick liquids." ANA THOMPSON Feb 20, 2022 08:18
[2022-02-20] MEDS: guaiFENesin (MUCINEX) 600 MG TAB PO SCH ×2 (08:38→19:48)
[2022-02-20] MEDS: GABAPENTIN 300 MG (NEURONTIN) CAP PO SCH (08:38)
[2022-02-20] MEDS: D5 1/2 NS W/KCL 20 MEQ/L 1,000 ML IV SCH (08:38)
[2022-02-20] MEDS: ASPIRIN E.C. 81 MG (ECOTRIN) TAB PO SCH ×2 (08:38→18:10)
[2022-02-20] MEDS: PANTOPRAZOLE 40 MG (PROTONIX) TAB PO SCH (08:38)
[2022-02-20] MEDS: SOTALOL 80 MG (BETAPACE) TAB PO SCH (08:39)
--- NOTE | 2022-02-20 09:30 | Physical Therapy Daily Note ---
PT Daily Note-Current Subjective Patient kept repeating, "Gema loves me." He then looked at this PT during bilateral LE exercises and states, "Why are you trying to kill me." Nursing and SW notified. Mental Status Patient Orientation: Confused Attachments: Suprapubic Catheter, IV Transfers SCALE: Activities may be completed with or without assistive devices. 5-Fwtcttwvce-fotfisd completes the activity by him/herself with no assistance from a helper. 5-Set-up or Clean-up Assistance-helper sets up or cleans up; patient completes activity. [place] assists only prior to or following the activity. 4-Supervision or Touching Assistance-helper provides verbal cues and/or touching/steadying and/or contact guard assistance as patient completes activity. Assistance may be provided throughout the activity or intermittently. 3-Partial/Moderate Assistance-helper does LESS THAN HALF the effort. [place] lifts, holds or supports trunk or limbs, but provides less than half the effort. 2-Substantial/Maximal Assistance-helper does MORE THAN HALF the effort. [place] lifts or holds trunk or limbs and provides more than half the effort. 5-Wnalzuefa-nasewy does ALL the effort. Patient does none of the effort to complete the activity. Or, the assistance of 2 or more helpers is required for the patient to complete the activity. If activity was not attempted, code reason: 7-Patient Refused. 9-Not Applicable-not attempted and the patient did not perform the activity before the current illness, exacerbation or injury. 10-Not Attempted due to Environmental Limitations-(lack of equipment, weather restraints, etc.). 88-Not Attempted due to Medical Conditions or Safety Concerns. Exercises Supine Ex: Ankle pumps, Heel Slides, Straight leg raise, Hip abd/add Supine Reps: 15 (AAROM) Assessment Due to increase in confusion, patient is not safe for OOB activity. Session ceased after patient's comment with RN and SW notified. PT Prison Goals Combine Mechanic Goals PT Prison Goals Time Frame: Mar 01, 2022 Roll Left & Right (QC): 4 Sit to Lying (QC): 4 Lying-Sitting on Side/Bed(QC): 4 Sit to Stand (QC): 4 Chair/Xsy-sd-Iypyl Xfer(QC): 4 Toilet Transfer (QC): 4 Walk 10 feet (QC): 4 Walk 50ft with 2 Turns (QC): 4 PT Plan Treatment/Plan Treatment Plan: Continue Plan of Care Treatment Plan: Bed Mobility, Education, Functional Activity Molly, Functional Strength, Gait, Safety, Therapeutic Exercise, Transfers Treatment Duration: Mar 01, 2022 Frequency: 6 times per week Estimated Hrs Per Day: .25 hour per day Patient and/or Family Agrees t: Yes Time/GCodes Time In: 857 Time Out: 908 Total Billed Treatment Time: 11 Total Billed Treatment 1 visit EX 11 min SHABBIR HOWARD PT Feb 20, 2022 09:30
--- NOTE | 2022-02-20 11:04 | Occupational Ther Daily Note ---
OT Current Status-Daily Note Subjective Pt confused, requires simplification and redirection throughout treatment. Pt now on contact precautions. Appearance Pt left supine at OT departure. Mental Status/Objective Patient Orientation: Person, Confused Attachments: IV, Telemetry ADL-Treatment Therapy Code Descriptions/Definitions Functional [place] Measure: 0=Not Assessed/NA 4=Minimal Assistance 1=Total Assistance 5=Supervision or Setup 2=Maximal Assistance 6=Modified [place] 3=Moderate Assistance 7=Complete IndependenceSCALE: Activities may be completed with or without assistive devices. 8-Qifdlwligk-eyjccap completes the activity by him/herself with no assistance from a helper. 5-Set-up or Clean-up Assistance-helper sets up or cleans up; patient completes activity. [place] assists only prior to or following the activity. 4-Supervision or Touching Assistance-helper provides verbal cues and/or touching /steadying and/or contact guard assistance as patient completes activity. Assistance may be provided throughout the activity or intermittently. 3-Partial/Moderate Assistance-helper does LESS THAN HALF the effort. [place] lifts, holds or supports trunk or limbs, but provides less than half the effort. 2-Substantial/Maximal Assistance-helper does MORE THAN HALF the effort. [place] lifts or holds trunk or limbs and provides more than half the effort. 8-Jzzuvgpaq-ljtqtn does ALL the effort. Patient does none of the effort to complete the activity. Or, the assistance of 2 or more helpers is required for the patient to complete the activity. If activity was not attempted, code reason: 7-Patient Refused. 9-Not Applicable-not attempted and the patient did not perform the activity before the current illness, exacerbation or injury. 10-Not Attempted due to Environmental Limitations-(lack of equipment, weather restraints, etc.). 88-Not Attempted due to Medical Conditions or Safety Concerns. Oral Hygiene (QC): 4 Pt sleeping at OT arrival, easy to rouse. Encouragement to complete oral care with education on reasoning. Pt continues to be NPO and OT provides strict instructions not to swallow any toothpaste or water when rinsing. Assist needed for set up secondary to weakness and pt often getting distracted with toothbrush not being an electric toothbrush. Post set up, pt was able to brush all quadrants of his mouth without assist. He did need cues and supervision to spit to ensure he did not swallow any liquids. "I'm tired of you all wearing me out, you can leave now." Education OT Patient Education: Purpose of tx/functional activities, Safety issues Teaching Recipient: Patient Teaching Methods: Discussion Response to Teaching: Return Demonstration, Reinforcement Needed OT Longterm Goals Estimator And Drafter Supervisor Goals Time Frame: Mar 11, 2022 Eating (QC): 4 Oral Hygiene (QC): 4 Toileting Hygiene (QC): 3 Upper Body Dressing (QC): 3 Lower Body Dressing (QC): 3 1=Demonstrate adherence to instructed precautions during ADL tasks. 2=Patient will verbalize/demonstrate understanding of assistive devices/modifications for ADL. 3=Patient will improve strength/tolerance for activity to enable patient to perform ADL's. OT Education/Plan Problem List/Assessment Assessment: Decreased Activ Tolerance, Decreased Safety Aware, Decreased UE Strength, Impaired Cognition, Impaired Self-Care Skills Discharge Recommendations Plan/Recommendations: Continue POC Treatment Plan/Plan of Care Treatment,Training & Education: Yes Patient would benefit from OT for education, treatment and training to promote independence in ADL's, mobility, safety and/or upper extremity function for ADL's. Plan of Care: ADL Retraining, Cognitive Retraining, Functional Mobility, Group Exercise/Act as Ind, UE Funct Exercise/Act, W/C Management Training Treatment Duration: Mar 11, 2022 Frequency: 3 times per week (3-5x/week) Estimated Hrs Per Day: .25 hour per day Rehab Potential: Poor Time/GCodes Start Time: 10:38 Stop Time: 10:51 Total Time Billed (hr/min): 13 Billed Treatment Time 1 visit ADL Shalini Zepeda OT Feb 20, 2022 11:04
[2022-02-20 12:00] VITALS: BP 171/80
[2022-02-20 16:07] VITALS: BP 159/74
--- NOTE | 2022-02-20 17:31 | Progress Note - Hospitalist ---
Subjective HPI/CC On Admission Date Seen by Provider: Feb 20, 2022 Time Seen by Provider: 10:45 Kaiser Pham is an 81 year old male with PMH AFib, COPD, suprapubic catheter, recurrent hospitalizations due to pneumonia, who presented with shortness of breath. He denies cough. He denies fever. He is feeling tired. He denies chest pain. He denies nausea and vomiting. He was admitted from [facility]. Subjective/Events-last exam He is still confused. He is not short of breath. He denies pain. Objective Exam Vital Signs Vital Signs Date Time Temp Pulse Resp B/P (MAP) Pulse Ox O2 Delivery O2 Flow Rate FiO2 02/20/22 16:07 36.3 60 16 159/74 (102) 96 Nasal Cannula 3.00 02/17/22 22:17 40 Capillary Refill : General Appearance: No Apparent Distress, Chronically ill Respiratory: Lungs Clear, No Respiratory Distress Cardiovascular: Regular Rate, Rhythm, No Murmur Gastrointestinal: Normal Bowel Sounds, Soft Extremity: Normal Inspection, No Pedal Edema Neurologic/Psychiatric: Alert, Normal Mood/Affect Skin: Normal Color, Warm/Dry Results/Procedures Lab Laboratory Tests 02/20/22 06:45 Patient resulted labs reviewed. Assessment/Plan Assessment and Plan Assess & Plan/Chief Complaint Aspiration pneumonia Acute on chronic respiratory failure with hypoxia Concern for aspiration Speech therapy consulted Modified barium swallow concerning for high aspiration risk NPO Continue Unasyn Supplemental oxygen as needed Goals of care discussion Discussed results with bethany Bañuelos and Too, they will discuss and decide on plan going forward regarding nutrition AFib COPD Dementia Continue home meds Severe sepsis, resolved Lactic acidosis, resolved MERVIN on CKD, resolved Diagnosis/Problems Diagnosis/Problems (1) Acute and chronic respiratory failure with hypoxia Status: Acute (2) Severe sepsis Status: Resolved Resolution Date/Time: 02/20/22 @ 17:32 (3) Pneumonia Status: Acute Qualifiers: Pneumonia type: aspiration pneumonia Aspiration pneumonia type: unspecified Laterality: bilateral Lung location: unspecified part of lung Qualified Codes: J69.0 - Pneumonitis due to inhalation of food and vomit (4) Lactic acidosis Status: Resolved Resolution Date/Time: 07/26/21 @ 17:32 (5) MERVIN (acute kidney injury) Status: Resolved Resolution Date/Time: 02/20/22 @ 17:32 (6) Stage 3a chronic kidney disease Status: Chronic (7) Paroxysmal atrial fibrillation Status: Chronic (8) COPD (chronic obstructive pulmonary disease) Status: Chronic (9) Dementia Status: Chronic (10) Suprapubic catheter Status: Chronic NIKO BROWN MD Feb 20, 2022 17:31
[2022-02-20] MEDS: MELATONIN 3 MG TABLET PO SCH (19:47)
[2022-02-20] MEDS: ACETAMINOPHEN 325 MG TABLET PO PRN (19:48)
--- NOTE | 2022-02-20 19:49 | Progress Note-Pre Operative ---
Pre-Operative Progress Note H&P Reviewed The H&P was reviewed, patient examined and no changes noted. Date Seen by Provider: Feb 20, 2022 Time Seen by Provider: 20:00 Date H&P Reviewed: Feb 20, 2022 Time H&P Reviewed: :00 Pre-Operative Diagnosis: malnutrition, dysphagia, aspiration risk OPAL PEREZ MD Feb 20, 2022 19:49
[2022-02-20 20:00] VITALS: BP 166/81
[2022-02-20 23:49] VITALS: BP 133/71
[2022-02-21] VITALS (9 sets, daily range): BP systolic 129–180; BP diastolic 59–80
[2022-02-21] MEDS: D5 1/2 NS W/KCL 20 MEQ/L 1,000 ML IV SCH ×2 (00:43→09:23)
[2022-02-21] MEDS: AMPICILLIN/SULBACTAM INJECTION 1.5 GM in NS (IVPB) 100 ML IV SCH ×3 (02:56→17:05)
[2022-02-21] MEDS: fentaNYL INJ 100 MCG/2 ML AMP IV PRN ×3 (02:57→17:32)
--- NOTE | 2022-02-21 03:41 | CONSULTATION REPORT ---
DATE OF SERVICE: The patient's consultation will be seen on 02/21/2022. ATTENDING PRIMARY CARE PHYSICIAN: Dr. Mckinley Nichols. ADMITTING PHYSICIAN: Dr. Marcy Segura. HISTORY OF PRESENT ILLNESS: Majority of the information and the patient was accrued through the patient's electronic medical records as well as through the nurse taking care of the patient. The patient initially was brought to the Emergency Department from [facility] with worsening shortness of breath with his oxygen saturations in the 70s on 4 liters nasal cannula. A previous to being placed to the [facility], he was admitted for a bilateral lung pneumonia. The patient also does have problems with urinary incontinence and does have a suprapubic catheter in place. The patient is also confused. Since being admitted, he has been treated for the pneumonia as well as exacerbation of COPD and has improved. His nutritional status has been poor and he has been unable to eat much foods lately when he was at his senior living facility. Speech pathology was consulted and he was deemed a high risk of aspiration. We are being consulted for placement of a percutaneous endoscopic gastrostomy tube for alimentation, water requirements as well as medications. The patient's stepchildren do have power of collections attorney and are okay with proceeding with the gastrostomy tube, which we will schedule. PAST MEDICAL HISTORY: Atrial fibrillation, hypercholesterolemia, hypertension, COPD, history of pneumonia, urethral stricture and urinary retention, gastroesophageal reflux disease, history of colon polyps, abdominal hernia, hypothyroid, history of anemia, degenerative joint disease, renal failure, dementia. PAST SURGICAL HISTORY: Bilateral eye surgery, abdominal wall hernia repair, suprapubic catheter placement, left hip ORIF in 02/04. ALLERGIES: No known drug allergies. MEDICATIONS: Acetylcysteine, albuterol, apixaban, aspirin, bisacodyl, cefdinir, gabapentin, , hydrocodone, magnesium hydroxide, melatonin, mometasone/formoterol, Protonix, polyethylene glycol, sennosides, sotalol, tramadol, venlafaxine. SOCIAL HISTORY: Negative smoke, negative alcohol. FAMILY HISTORY: Noncontributory. VITAL SIGNS: Temperature 36.3, blood pressure 159/74, pulse 60, respirations 16, pulse ox 97% on 3 liters nasal cannula. REVIEW OF SYSTEMS: This is a slightly thin appearing male who is confused. Staff states that he is currently comfortable and not experiencing any shortness of breath and minimal cough, nonproductive. The patient has been n.p.o. has had a few bowel movements since being admitted. No red blood per rectum, no dark tarry stools. No fever, chills, no recent inadvertent weight loss. All other review of systems negative. PHYSICAL EXAMINATION: Will be assessed upon physically seeing the patient in the a.m. LABORATORY DATA: WBC 11.1, hemoglobin 11.0, hematocrit 35, platelets 221, BUN 13, creatinine 1.08. UA moderate bacteria, positive nitrite, positive leukocyte esterase, moderate yeast. ASSESSMENT AND PLAN: An 82-year-old male with multiple medical problems including exacerbation of chronic obstructive pulmonary disease as well as bilateral pneumonia and urinary tract infection. Since being admitted and treated for these issues, he has improved; however, has had poor alimentation and speech pathology was consulted and he is deemed high risk for aspiration and the patient's stepchildren do have power of collections attorney and would like to proceed with placement of a percutaneous endoscopic gastrostomy tube for water requirements, alimentation, as well as medications. The risks and benefits of the procedure were explained and they are in full understanding and we will proceed with schedule him for the gastrostomy tube placement. Job ID: [id number] DocumentID: [id number] Dictated Date: 02/20/2022 19:47:12 Glue Sprayer Date: 02/21/2022 03:40:34 Dictated By: OPAL PEREZ MD
[2022-02-21] MEDS: RT-ALBUTEROL SULF 2.5 MG/3 ML PRE-MIX VIAL INH SCH ×7 (04:30→22:59)
[2022-02-21 07:01] LABS: BASOPHILS # (AUTO) 0.1 10^3/uL (0.0-0.1); BASOPHILS % (AUTO) 1 % (0-10); EOSINOPHILS # (AUTO) 0.3 10^3/uL (0.0-0.3); EOSINOPHILS % (AUTO) 3 % (0-10); HEMATOCRIT 34 % (40-54); HEMOGLOBIN 10.7 g/dL (13.3-17.7); LYMPHOCYTES # (AUTO) 1.1 10^3/uL (1.0-4.0); LYMPHOCYTES % (AUTO) 9 % (12-44); MEAN CORPUSCULAR HEMOGLOBIN 31 pg (25-34); MEAN CORPUSCULAR HGB CONC 32 g/dL (32-36); MEAN CORPUSCULAR VOLUME 96 fL (80-99); MONOCYTES # (AUTO) 1.3 10^3/uL (0.0-1.0); MONOCYTES % (AUTO) 11 % (0-12); NEUTROPHILS # (AUTO) 8.5 10^3/uL (1.8-7.8); NEUTROPHILS % (AUTO) 74 % (42-75); PLATELET COUNT 235 10^3/uL (130-400); WHITE BLOOD COUNT 11.6 10^3/uL (4.3-11.0)
[2022-02-21 07:36] LABS: CALCIUM 9.3 MG/DL (8.5-10.1); CREATININE SERUM 1.11 MG/DL (0.60-1.30); MAGNESIUM 1.7 MG/DL (1.6-2.4); PHOSPHORUS 2.5 MG/DL (2.3-4.7); POTASSIUM 3.8 MMOL/L (3.6-5.0)
[2022-02-21] MEDS: ASPIRIN E.C. 81 MG (ECOTRIN) TAB PO SCH ×2 (08:36→18:31)
[2022-02-21] MEDS: GABAPENTIN 300 MG (NEURONTIN) CAP PO SCH (08:36)
[2022-02-21] MEDS: guaiFENesin (MUCINEX) 600 MG TAB PO SCH ×2 (08:36→20:56)
[2022-02-21] MEDS: SOTALOL 80 MG (BETAPACE) TAB PO SCH (08:37)
[2022-02-21] MEDS: PANTOPRAZOLE 40 MG (PROTONIX) TAB PO SCH (08:37)
[2022-02-21] MEDS ORDERED: LACTATED RINGERS 1,000 ML IV STA (09:27)
[2022-02-21] MEDS ORDERED: HURRICAINE EXT TUBE (BENZOCAINE) XX PRN (09:30)
[2022-02-21] MEDS ORDERED: LIDOCAINE JELLY 2% 6 ML SYRINGE MM PRN (09:30)
--- NOTE | 2022-02-21 09:44 | Progress Note ---
Standard Progress Note Progress Notes/Assess & Plan Date Seen by a Provider: Feb 21, 2022 Time Seen by a Provider: 09:00 Progress/Assessment & Plan patient baseline confused. clinically stable. PE: chest-few scattered rhales bilat heart-regular extr-no LE edema, neg homans. heent-no scleral icterus. abd-soft, nt/nd OPAL PEREZ MD Feb 21, 2022 09:44
--- NOTE | 2022-02-21 10:04 | Physical Therapy Progress Note ---
Therapy Progress Note Patient having surgery to place PEG tube. PT to resume tomorrow SHABBIR Baig PT Feb 21, 2022 10:04
[2022-02-21] MEDS ORDERED: PROPOFOL INJECTION 50 ML IV ONE (10:24)
--- NOTE | 2022-02-21 10:36 | Occ Therapy Progress Note ---
Therapy Progress Note Patient having surgery to place PEG tube. OT to resume therapy 02/24/22 if medically appropriate. Shalini Zepeda OT Feb 21, 2022 10:36
[2022-02-21] MEDS ORDERED: HURRICAINE EXT TUBE (BENZOCAINE) ONE (10:40)
--- NOTE | 2022-02-21 11:20 | Anesthesia-General Post-Op ---
MAC Patient Condition Mental Status/LOC: Same as Preop Cardiovascular: Satisfactory Nausea/Vomiting: Absent Respiratory: Satisfactory Pain: Controlled Complications: Absent Post Op Complications Complications None Follow Up Care/Instructions Patient Instructions None needed. Anesthesiology Discharge Order Discharge Order Patient is doing well, no complaints, stable vital signs, no apparent adverse anesthesia problems. No complications reported per nursing. JESS VU DO Feb 21, 2022 11:20
[2022-02-21] MEDS: APIXABAN 2.5 MG (ELIQUIS) TABLET PO SCH (18:31)
--- NOTE | 2022-02-21 19:51 | Progress Note - Hospitalist ---
Subjective HPI/CC On Admission Date Seen by Provider: Feb 21, 2022 Time Seen by Provider: 15:00 Kaiser Pham is an 81 year old male with PMH AFib, COPD, suprapubic catheter, recurrent hospitalizations due to pneumonia, who presented with shortness of breath. He denies cough. He denies fever. He is feeling tired. He denies chest pain. He denies nausea and vomiting. He was admitted from [facility]. Subjective/Events-last exam He is confused. He denies pain. He is expressing paranoid delusions. Objective Exam Vital Signs Vital Signs Date Time Temp Pulse Resp B/P (MAP) Pulse Ox O2 Delivery O2 Flow Rate FiO2 02/21/22 19:24 37.0 76 18 132/66 (88) 95 Nasal Cannula 3.00 02/21/22 16:07 32 Capillary Refill : General Appearance: No Apparent Distress, Chronically ill Respiratory: No Respiratory Distress, Decreased Breath Sounds Cardiovascular: Regular Rate, Rhythm, No Murmur Gastrointestinal: Normal Bowel Sounds, Soft Extremity: Normal Inspection, No Pedal Edema Neurologic/Psychiatric: Alert, Disoriented Results/Procedures Lab Laboratory Tests 02/21/22 06:24 Patient resulted labs reviewed. Assessment/Plan Assessment and Plan Assess & Plan/Chief Complaint Aspiration pneumonia Dysphagia Acute on chronic respiratory failure with hypoxia Concern for aspiration Transition to Augmentin Speech therapy consulted Modified barium swallow concerning for high aspiration risk NPO PEG placed today Dietary consulted for tube feed recommendations Supplemental oxygen as needed AFib COPD Dementia Continue home meds Severe sepsis, resolved Lactic acidosis, resolved MERVIN on CKD, resolved Diagnosis/Problems Diagnosis/Problems (1) Acute and chronic respiratory failure with hypoxia Status: Acute (2) Severe sepsis Status: Resolved Resolution Date/Time: 02/20/22 @ 17:32 (3) Pneumonia Status: Acute Qualifiers: Pneumonia type: aspiration pneumonia Aspiration pneumonia type: unspecified Laterality: bilateral Lung location: unspecified part of lung Qualified Codes: J69.0 - Pneumonitis due to inhalation of food and vomit (4) Lactic acidosis Status: Resolved Resolution Date/Time: 07/26/21 @ 17:32 (5) MERVIN (acute kidney injury) Status: Resolved Resolution Date/Time: 02/20/22 @ 17:32 (6) Stage 3a chronic kidney disease Status: Chronic (7) Paroxysmal atrial fibrillation Status: Chronic (8) COPD (chronic obstructive pulmonary disease) Status: Chronic (9) Dementia Status: Chronic (10) Suprapubic catheter Status: Chronic NIKO BROWN MD Feb 21, 2022 19:51
[2022-02-21] MEDS ORDERED: AUGMENTIN 875 MG TAB (AMOXICILLIN/CLAVULANATE) ONE (20:53)
[2022-02-21] MEDS: ACETAMINOPHEN 325 MG TABLET PO PRN (20:56)
[2022-02-21] MEDS: AUGMENTIN 875 MG TAB (AMOXICILLIN/CLAVULANATE) PEG SCH (20:56)
[2022-02-21] MEDS: MELATONIN 3 MG TABLET PO SCH (20:56)
--- NOTE | 2022-02-21 22:59 | OPERATIVE REPORT ---
DATE OF SERVICE: 02/21/2022 ATTENDING PRIMARY CARE PHYSICIAN: Mckinley Nichols MD PREOPERATIVE DIAGNOSES: Dysphagia, dementia. POSTOPERATIVE DIAGNOSES: Dysphagia, dementia. PROCEDURE: EGD with biopsy and percutaneous endoscopic gastrostomy tube placement. ANESTHESIA: Monitored anesthesia care with local. ESTIMATED BLOOD LOSS: Minimal. FINDINGS: Reflux esophagitis, Telfair grade B, small hiatal hernia approximately 1.5 cm in size, moderate gastritis. No distal obstructions. DISPOSITION: The patient tolerated the procedure well. INDICATIONS: The patient is an 82-year-old male who was admitted for bilateral pneumonia and worsening and exacerbation of COPD. He was recently admitted before for the same reason. He also does have a history of significant dementia. During this process of hospital admission, he underwent further testing and evaluation through speech pathology for a potential dysphagia and aspiration risk. Multiple tests were done and he was found to have significant dysphagia and also deemed aspiration risk. Durable power of commercial attorney for the patient were notified and consulted and they did want to proceed with placement of a percutaneous endoscopic gastrostomy tube for daily water intake, nutrition as well as medication. DESCRIPTION OF PROCEDURE: The patient was brought to the endoscopy suite, laid in the left lateral decubitus position. After adequate IV pain and sedative medications and monitored anesthesia care, the mouthpiece was applied. The endoscope was then placed in the mouth, visualizing the pharynx and hypopharyngeal region. Vocal cords, epiglottis and vallecula identified and appeared to be normal. The endoscope was then gently intubated the esophageal opening and esophagus insufflated. Endoscope was then advanced to the first, second and third portion of esophagus at the level of the GE junction, a reflux esophagitis, Telfair grade B identified. A biopsy was taken with forceps with visualization of good hemostasis. The endoscope was then advanced into the stomach and endoscope retroflexed, visualizing a small hiatal hernia approximately 1.5 cm in size. There was a moderate severity gastritis. No formal ulcerations, polyps, or any neoplasms. A biopsy was taken of the antrum to rule out H. pylori with visualization of good hemostasis. The endoscope was then advanced to the pylorus and the first and second portion of the duodenum, which appeared normal with no distal obstructions. The abdomen was prepped and draped in standard surgical fashion and the endoscopic light was identified in the left upper abdominal quadrant. Around this region, the skin, subcutaneous tissue, muscle layers as well as the peritoneal lining and stomach were anesthetized under direct visualization through the endoscope. A skin incision was then made using 11 blade and the trocar and dilator were introduced under the endoscope entering the stomach. The guidewire was then inserted and looped through the endoscope and pulled through. The gastrostomy tube was then placed on the wire and pulled through until the gastrostomy tube was firmly opposing the gastric wall then the rubber external bolster was then placed. The catheter cut down to size. The rubber stop placed onto the end of the catheter and antibacterial ointment was placed on the exit site followed by drain sponges. The endoscope was slowly withdrawn while taking a second look and suctioning of residual air with no additional findings. The patient tolerated the procedure well. The gastrostomy tube may be accessed and used at any time. Job ID: [id number] DocumentID: [id number] Dictated Date: 02/21/2022 11:21:51 Education Analyst Date: 02/21/2022 22:58:33 Dictated By: OPAL PEREZ MD MTDD
[2022-02-22] MEDS: RT-ALBUTEROL SULF 2.5 MG/3 ML PRE-MIX VIAL INH SCH ×6 (02:47→22:04)
[2022-02-22 03:31] VITALS: BP 119/57
[2022-02-22] MEDS: APIXABAN 2.5 MG (ELIQUIS) TABLET PO SCH (05:48)
[2022-02-22 06:14] LABS: BASOPHILS # (AUTO) 0.1 10^3/uL (0.0-0.1); BASOPHILS % (AUTO) 0 % (0-10); EOSINOPHILS # (AUTO) 0.2 10^3/uL (0.0-0.3); EOSINOPHILS % (AUTO) 1 % (0-10); HEMATOCRIT 34 % (40-54); HEMOGLOBIN 10.5 g/dL (13.3-17.7); LYMPHOCYTES # (AUTO) 1.2 10^3/uL (1.0-4.0); LYMPHOCYTES % (AUTO) 6 % (12-44); MEAN CORPUSCULAR HEMOGLOBIN 30 pg (25-34); MEAN CORPUSCULAR HGB CONC 31 g/dL (32-36); MEAN CORPUSCULAR VOLUME 97 fL (80-99); MEAN PLATELET VOLUME 9.7 fL (9.0-12.2); MONOCYTES % (AUTO) 11 % (0-12); NEUTROPHILS # (AUTO) 15.3 10^3/uL (1.8-7.8); NEUTROPHILS % (AUTO) 80 % (42-75); PLATELET COUNT 226 10^3/uL (130-400); WHITE BLOOD COUNT 19.2 10^3/uL (4.3-11.0)
[2022-02-22 06:36] LABS: BAND NEUTROPHILS 6 %; NEUTROPHILS % (MANUAL) 67 %
[2022-02-22 06:37] LABS: LYMPHOCYTES % (MANUAL) 10 %; MONOCYTES % (MANUAL) 17 %; RBC MORPH NORMAL
[2022-02-22 06:46] LABS: CALCIUM 9.3 MG/DL (8.5-10.1)
[2022-02-22 06:51] LABS: CREATININE SERUM 1.04 MG/DL (0.60-1.30); PHOSPHORUS 3.1 MG/DL (2.3-4.7)
[2022-02-22 06:53] LABS: MAGNESIUM 1.6 MG/DL (1.6-2.4)
[2022-02-22 07:36] VITALS: BP 142/67
--- NOTE | 2022-02-22 08:53 | Physical Therapy Progress Note ---
Therapy Progress Note Patient refused therapy this morning, he wouldn't even perform exercises in bed. Patient states that he is too exhausted and is trying to deal with a lot of pain and points to his peg tube which he just recently got. Nurse notified about the pain. CHRISTIE HERRERA PT Feb 22, 2022 08:53
[2022-02-22] MEDS: PANTOPRAZOLE 40 MG (PROTONIX) TAB PO SCH (09:09)
[2022-02-22] MEDS: ASPIRIN E.C. 81 MG (ECOTRIN) TAB PO SCH (09:09)
[2022-02-22] MEDS: guaiFENesin (MUCINEX) 600 MG TAB PO SCH ×2 (09:27→21:48)
[2022-02-22] MEDS: SOTALOL 80 MG (BETAPACE) TAB PO SCH (09:27)
[2022-02-22] MEDS: GABAPENTIN 300 MG (NEURONTIN) CAP PO SCH (09:27)
[2022-02-22] MEDS: AUGMENTIN 875 MG TAB (AMOXICILLIN/CLAVULANATE) PEG SCH ×2 (09:28→18:05)
--- NOTE | 2022-02-22 11:52 | Progress Note - Hospitalist ---
Subjective HPI/CC On Admission Date Seen by Provider: Feb 22, 2022 Time Seen by Provider: 10:40 Kaiser Pham is an 81 year old male with PMH AFib, COPD, suprapubic catheter, recurrent hospitalizations due to pneumonia, who presented with shortness of breath. He denies cough. He denies fever. He is feeling tired. He denies chest pain. He denies nausea and vomiting. He was admitted from [facility]. Subjective/Events-last exam He remains confused. He is asking about his sons visiting. He has no complaints. Objective Exam Vital Signs Vital Signs Date Time Temp Pulse Resp B/P (MAP) Pulse Ox O2 Delivery O2 Flow Rate FiO2 02/22/22 07:36 36.9 70 22 142/67 (92) 96 Nasal Cannula 3.00 02/21/22 16:07 32 Capillary Refill : General Appearance: No Apparent Distress, Chronically ill Respiratory: Lungs Clear, No Respiratory Distress Cardiovascular: Regular Rate, Rhythm, No Murmur Gastrointestinal: Normal Bowel Sounds, Soft, Other (PEG in place, suprapubic catheter) Extremity: Normal Inspection, No Pedal Edema Neurologic/Psychiatric: Alert, Depressed Affect, Disoriented Results/Procedures Lab Laboratory Tests 02/22/22 06:05 Patient resulted labs reviewed. Assessment/Plan Assessment and Plan Assess & Plan/Chief Complaint Aspiration pneumonia Dysphagia Acute on chronic respiratory failure with hypoxia Continue Augmentin PEG placed 02/21 Started on tube feeds Supplemental oxygen as needed Planning on return to [facility] AFib COPD GERD Dementia Continue home meds Severe sepsis, resolved Lactic acidosis, resolved MERVIN on CKD, resolved Diagnosis/Problems Diagnosis/Problems (1) Acute and chronic respiratory failure with hypoxia Status: Acute (2) Severe sepsis Status: Resolved Resolution Date/Time: 02/20/22 @ 17:32 (3) Pneumonia Status: Acute Qualifiers: Pneumonia type: aspiration pneumonia Aspiration pneumonia type: unspecified Laterality: bilateral Lung location: unspecified part of lung Qualified Codes: J69.0 - Pneumonitis due to inhalation of food and vomit (4) Lactic acidosis Status: Resolved Resolution Date/Time: 07/26/21 @ 17:32 (5) MERVIN (acute kidney injury) Status: Resolved Resolution Date/Time: 02/20/22 @ 17:32 (6) Stage 3a chronic kidney disease Status: Chronic (7) Paroxysmal atrial fibrillation Status: Chronic (8) COPD (chronic obstructive pulmonary disease) Status: Chronic (9) Dementia Status: Chronic (10) Suprapubic catheter Status: Chronic NIKO BROWN MD Feb 22, 2022 11:52
[2022-02-22 12:00] VITALS: BP 124/62
[2022-02-22] MEDS: fentaNYL INJ 100 MCG/2 ML AMP IV PRN (15:28)
[2022-02-22 16:00] VITALS: BP 143/65
[2022-02-22] MEDS: APIXABAN 2.5 MG (ELIQUIS) TABLET PEG SCH (18:05)
[2022-02-22] MEDS: ACETAMINOPHEN 325 MG TABLET PEG PRN (18:07)
[2022-02-22 19:43] VITALS: BP 122/56
[2022-02-22] MEDS: MELATONIN 3 MG TABLET PEG SCH (21:48)
[2022-02-22] MEDS: FAMOTIDINE 20 MG (PEPCID) TABLET PEG SCH (21:48)
[2022-02-23] VITALS (7 sets, daily range): BP systolic 123–168; BP diastolic 63–86
[2022-02-23] MEDS: RT-ALBUTEROL SULF 2.5 MG/3 ML PRE-MIX VIAL INH SCH ×6 (02:30→21:21)
[2022-02-23] MEDS: APIXABAN 2.5 MG (ELIQUIS) TABLET PEG SCH ×2 (05:34→18:50)
[2022-02-23 05:37] LABS: BASOPHILS # (AUTO) 0.1 10^3/uL (0.0-0.1); BASOPHILS % (AUTO) 1 % (0-10); EOSINOPHILS # (AUTO) 0.3 10^3/uL (0.0-0.3); EOSINOPHILS % (AUTO) 2 % (0-10); HEMATOCRIT 33 % (40-54); HEMOGLOBIN 10.2 g/dL (13.3-17.7); LYMPHOCYTES # (AUTO) 1.3 10^3/uL (1.0-4.0); LYMPHOCYTES % (AUTO) 8 % (12-44); MEAN CORPUSCULAR HEMOGLOBIN 30 pg (25-34); MEAN CORPUSCULAR HGB CONC 31 g/dL (32-36); MEAN CORPUSCULAR VOLUME 97 fL (80-99); MEAN PLATELET VOLUME 10.1 fL (9.0-12.2); MONOCYTES # (AUTO) 2.3 10^3/uL (0.0-1.0); MONOCYTES % (AUTO) 14 % (0-12); NEUTROPHILS # (AUTO) 12.1 10^3/uL (1.8-7.8); NEUTROPHILS % (AUTO) 74 % (42-75); PLATELET COUNT 252 10^3/uL (130-400); WHITE BLOOD COUNT 16.5 10^3/uL (4.3-11.0)
[2022-02-23 05:50] LABS: POTASSIUM 4.3 MMOL/L (3.6-5.0)
[2022-02-23 05:51] LABS: CALCIUM 9.3 MG/DL (8.5-10.1)
[2022-02-23 05:56] LABS: CREATININE SERUM 1.01 MG/DL (0.60-1.30)
[2022-02-23 05:58] LABS: MAGNESIUM 1.7 MG/DL (1.6-2.4)
[2022-02-23] MEDS: AUGMENTIN 875 MG TAB (AMOXICILLIN/CLAVULANATE) PEG SCH ×2 (09:26→18:51)
[2022-02-23] MEDS: FAMOTIDINE 20 MG (PEPCID) TABLET PEG SCH ×2 (09:27→21:01)
[2022-02-23] MEDS: GABAPENTIN 300 MG (NEURONTIN) CAP PEG SCH (09:27)
[2022-02-23] MEDS: ASPIRIN 81 MG CHEW (CHILDREN'S ASA) PEG SCH (09:27)
[2022-02-23] MEDS: SOTALOL 80 MG (BETAPACE) TAB PEG SCH (09:27)
[2022-02-23] MEDS: guaiFENesin (MUCINEX) 600 MG TAB PO SCH ×2 (09:32→21:01)
--- NOTE | 2022-02-23 15:52 | Progress Note - Hospitalist ---
Subjective HPI/CC On Admission Date Seen by Provider: Feb 23, 2022 Time Seen by Provider: 11:40 Kaiser Pham is an 81 year old male with PMH AFib, COPD, suprapubic catheter, recurrent hospitalizations due to pneumonia, who presented with shortness of breath. He denies cough. He denies fever. He is feeling tired. He denies chest p ain. He denies nausea and vomiting. He was admitted from [facility]. Subjective/Events-last exam He is resting in bed. He has no complaints. He denies pain. Objective Exam Vital Signs Vital Signs Date Time Temp Pulse Resp B/P (MAP) Pulse Ox O2 Delivery O2 Flow Rate FiO2 02/23/22 13:58 93 Nasal Cannula 3.00 02/23/22 13:00 57 02/23/22 12:18 37.0 16 132/67 (88) 02/21/22 16:07 32 Capillary Refill : General Appearance: No Apparent Distress, Chronically ill Respiratory: No Respiratory Distress, Decreased Breath Sounds Cardiovascular: Regular Rate, Rhythm, No Murmur Gastrointestinal: Normal Bowel Sounds, Soft Extremity: Normal Inspection, No Pedal Edema Neurologic/Psychiatric: Alert, Depressed Affect, Disoriented Results/Procedures Lab Laboratory Tests 02/23/22 05:04 Patient resulted labs reviewed. Assessment/Plan Assessment and Plan Assess & Plan/Chief Complaint Aspiration pneumonia Dysphagia Acute on chronic respiratory failure with hypoxia Continue Augmentin PEG placed 02/21 Continue tube feeds Supplemental oxygen as needed Planning on return to [facility] AFib COPD GERD Dementia Continue home meds Severe sepsis, resolved Lactic acidosis, resolved MERVIN on CKD, resolved Diagnosis/Problems Diagnosis/Problems (1) Acute and chronic respiratory failure with hypoxia Status: Acute (2) Severe sepsis Status: Resolved Resolution Date/Time: 02/20/22 @ 17:32 (3) Pneumonia Status: Acute Qualifiers: Pneumonia type: aspiration pneumonia Aspiration pneumonia type: unspecified Laterality: bilateral Lung location: unspecified part of lung Qualified Codes: J69.0 - Pneumonitis due to inhalation of food and vomit (4) Lactic acidosis Status: Resolved Resolution Date/Time: 07/26/21 @ 17:32 (5) MERVIN (acute kidney injury) Status: Resolved Resolution Date/Time: 02/20/22 @ 17:32 (6) Stage 3a chronic kidney disease Status: Chronic (7) Paroxysmal atrial fibrillation Status: Chronic (8) COPD (chronic obstructive pulmonary disease) Status: Chronic (9) Dementia Status: Chronic (10) Suprapubic catheter Status: Chronic NIKO BROWN MD Feb 23, 2022 15:52
[2022-02-23] MEDS: MELATONIN 3 MG TABLET PEG SCH (21:01)
[2022-02-24] VITALS: BP 103/61
[2022-02-24] MEDS: RT-ALBUTEROL SULF 2.5 MG/3 ML PRE-MIX VIAL INH SCH ×3 (02:56→11:02)
[2022-02-24 04:00] VITALS: BP 122/64
[2022-02-24] MEDS: APIXABAN 2.5 MG (ELIQUIS) TABLET PEG SCH (06:44)
[2022-02-24 07:24] LABS: BASOPHILS # (AUTO) 0.1 10^3/uL (0.0-0.1); BASOPHILS % (AUTO) 1 % (0-10); EOSINOPHILS # (AUTO) 0.3 10^3/uL (0.0-0.3); EOSINOPHILS % (AUTO) 2 % (0-10); HEMATOCRIT 35 % (40-54); HEMOGLOBIN 10.7 g/dL (13.3-17.7); LYMPHOCYTES # (AUTO) 1.6 10^3/uL (1.0-4.0); LYMPHOCYTES % (AUTO) 10 % (12-44); MEAN CORPUSCULAR HEMOGLOBIN 30 pg (25-34); MEAN CORPUSCULAR HGB CONC 31 g/dL (32-36); MEAN CORPUSCULAR VOLUME 97 fL (80-99); MEAN PLATELET VOLUME 10.2 fL (9.0-12.2); MONOCYTES # (AUTO) 2.2 10^3/uL (0.0-1.0); MONOCYTES % (AUTO) 14 % (0-12); NEUTROPHILS # (AUTO) 11.9 10^3/uL (1.8-7.8); NEUTROPHILS % (AUTO) 72 % (42-75); PLATELET COUNT 304 10^3/uL (130-400); WHITE BLOOD COUNT 16.6 10^3/uL (4.3-11.0)
[2022-02-24 07:30] LABS: POTASSIUM 4.5 MMOL/L (3.6-5.0)
[2022-02-24 07:31] LABS: CALCIUM 9.5 MG/DL (8.5-10.1)
[2022-02-24 07:36] LABS: CREATININE SERUM 1.04 MG/DL (0.60-1.30)
[2022-02-24 07:39] LABS: MAGNESIUM 1.8 MG/DL (1.6-2.4)
[2022-02-24 08:38] VITALS: BP 130/73
[2022-02-24 09:05] VITALS: BP 130/73
[2022-02-24] MEDS: GABAPENTIN 300 MG (NEURONTIN) CAP PEG SCH (09:21)
[2022-02-24] MEDS: AUGMENTIN 875 MG TAB (AMOXICILLIN/CLAVULANATE) PEG SCH (09:21)
[2022-02-24] MEDS: FAMOTIDINE 20 MG (PEPCID) TABLET PEG SCH (09:21)
[2022-02-24] MEDS: guaiFENesin (MUCINEX) 600 MG TAB PO SCH (09:21)
[2022-02-24] MEDS: ASPIRIN 81 MG CHEW (CHILDREN'S ASA) PEG SCH (09:21)
[2022-02-24] MEDS: SOTALOL 80 MG (BETAPACE) TAB PEG SCH (09:22)
[2022-02-24] MEDS: ACETAMINOPHEN 325 MG TABLET PEG PRN (09:22)
--- NOTE | 2022-02-24 09:29 | Physical Therapy Daily Note ---
PT Daily Note-Current Subjective Patient is very agitated and verbally angry. Repeats, "You better not make me late for my appointment at ." Mental Status Patient Orientation: Confused Attachments: Suprapubic Catheter, PEG Tube Transfers SCALE: Activities may be completed with or without assistive devices. 1-Zhmvzosvht-smriywl completes the activity by him/herself with no assistance from a helper. 5-Set-up or Clean-up Assistance-helper sets up or cleans up; patient completes activity. [place] assists only prior to or following the activity. 4-Supervision or Touching Assistance-helper provides verbal cues and/or touching/steadying and/or contact guard assistance as patient completes activity. Assistance may be provided throughout the activity or intermittently. 3-Partial/Moderate Assistance-helper does LESS THAN HALF the effort. [place] lifts, holds or supports trunk or limbs, but provides less than half the effort. 2-Substantial/Maximal Assistance-helper does MORE THAN HALF the effort. [place] lifts or holds trunk or limbs and provides more than half the effort. 1-Joaxcurol-dbjlms does ALL the effort. Patient does none of the effort to complete the activity. Or, the assistance of 2 or more helpers is required for the patient to complete the activity. If activity was not attempted, code reason: 7-Patient Refused. 9-Not Applicable-not attempted and the patient did not perform the activity before the current illness, exacerbation or injury. 10-Not Attempted due to Environmental Limitations-(lack of equipment, weather restraints, etc.). 88-Not Attempted due to Medical Conditions or Safety Concerns. Lying to Sitting/Side of Bed(Q: 3 Sit to Stand (QC): 3 Chair/Vig-fs-[place] Xfer(QC): 3 Gait Training Distance: 10' Walk 10 feet (QC): 3 Gait Assistive Device: FWW slow, shuffle gait sequence Assessment Patient up in recliner with chair alarm activated. Patient does have a very deep cough with activity. Continue to increase activity as tolerated and allow by patient. PT Change Management Expert Goals Halfway Goals PT Halfway Goals Time Frame: Mar 01, 2022 Roll Left & Right (QC): 4 Sit to Lying (QC): 4 Lying-Sitting on Side/Bed(QC): 4 Sit to Stand (QC): 4 Chair/Bex-lx-Gfdzt Xfer(QC): 4 Toilet Transfer (QC): 4 Walk 10 feet (QC): 4 Walk 50ft with 2 Turns (QC): 4 PT Plan Treatment/Plan Treatment Plan: Continue Plan of Care Treatment Plan: Bed Mobility, Education, Functional Activity Molly, Functional Strength, Gait, Safety, Therapeutic Exercise, Transfers Treatment Duration: Mar 01, 2022 Frequency: 6 times per week Estimated Hrs Per Day: .25 hour per day Patient and/or Family Agrees t: Yes Time/GCodes Time In: 828 Time Out: 840 Total Billed Treatment Time: 12 Total Billed Treatment 1 visit FA 12 min SHABBIR HOWARD PT Feb 24, 2022 09:29
[2022-02-24] MEDS ORDERED: AMOX1TAB12 PEG (10:34)
--- NOTE | 2022-02-24 10:50 | Discharge Summary ---
Diagnosis/Chief Complaint Date of Admission Feb 16, 2022 at 18:40 Date of Discharge Discharge Date: Feb 24, 2022 Admission Diagnosis Severe sepsis due to pneumonia Primary Care Mckinley Nichols MD Discharge Diagnosis (1) Acute and chronic respiratory failure with hypoxia Status: Acute (2) Severe sepsis Status: Resolved (3) Pneumonia Status: Acute (4) Lactic acidosis Status: Resolved (5) MERVIN (acute kidney injury) Status: Resolved (6) Stage 3a chronic kidney disease Status: Chronic (7) Paroxysmal atrial fibrillation Status: Chronic (8) COPD (chronic obstructive pulmonary disease) Status: Chronic (9) Dementia Status: Chronic (10) Suprapubic catheter Status: Chronic Discharge Summary Discharge Physical Exam Allergies: Coded Allergies: No Known Drug Allergies (Unverified , 01/23/12) Vitals & I&Os Vital Signs Date Time Temp Pulse Resp B/P (MAP) Pulse Ox O2 Delivery O2 Flow Rate FiO2 02/24/22 09:05 36.7 88 96 100 02/24/22 08:38 20 130/73 (92) High Flow N/C 3.00 Hospital Course Labs (last 24 hrs) Laboratory Tests 02/24/22 07:09: White Blood Count 16.6H, Red Blood Count 3.60L, Hemoglobin 10.7L, Hematocrit 35L , Mean Corpuscular Volume 97, Mean Corpuscular Hemoglobin 30, Mean Corpuscular Hemoglobin Concent 31L, Red Cell Distribution Width 13.6, Platelet Count 304, Mean Platelet Volume 10.2, Immature Granulocyte % (Auto) 3, Neutrophils (%) (Auto) 72, Lymphocytes (%) (Auto) 10L, Monocytes (%) (Auto) 14H, Eosinophils (%) (Auto) 2, Basophils (%) (Auto) 1, Neutrophils # (Auto) 11.9H, Lymphocytes # (Auto) 1.6, Monocytes # (Auto) 2.2H, Eosinophils # (Auto) 0.3, Basophils # (Auto) 0.1, Immature Granulocyte # (Auto) 0.5H, Sodium Level 138, Potassium Level 4.5, Chloride Level 95L, Carbon Dioxide Level 31, Anion Gap 12, Blood Urea Nitrogen 18, Creatinine 1.04, Estimat Glomerular Filtration Rate 71, BUN/Creatinine Ratio 17, Glucose Level 107H, Calcium Level 9.5, Phosphorus Level 3.0, Magnesium Level 1.8 Microbiology 02/21/22 MRSA Screen - Final, Complete 02/16/22 Urine Culture - Final, Complete YEAST Mixed Bacterial [place] 02/16/22 Blood Culture - Final, Complete No growth Patient resulted labs reviewed. Pending Labs Laboratory Tests 02/24/22 07:09: White Blood Count 16.6, Red Blood Count 3.60, Hemoglobin 10.7, Hematocrit 35, Mean Corpuscular Volume 97, Mean Corpuscular Hemoglobin 30, Mean Corpuscular Hemoglobin Concent 31, Red Cell Distribution Width 13.6, Platelet Count 304, Mean Platelet Volume 10.2, Immature Granulocyte % (Auto) 3, Neutrophils (%) (Auto) 72, Lymphocytes (%) (Auto) 10, Monocytes (%) (Auto) 14, Eosinophils (%) (Auto) 2, Basophils (%) (Auto) 1, Neutrophils # (Auto) 11.9, Lymphocytes # (Auto) 1.6, Monocytes # (Auto) 2.2, Eosinophils # (Auto) 0.3, Basophils # (Auto) 0.1, Immature Granulocyte # (Auto) 0.5, Sodium Level 138, Potassium Level 4.5, Chloride Level 95, Carbon Dioxide Level 31, Anion Gap 12, Blood Urea Nitrogen 18, Creatinine 1.04, Estimat Glomerular Filtration Rate 71, BUN/Creatinine Ratio 17, Glucose Level 107, Calcium Level 9.5, Phosphorus Level 3.0, Magnesium Level 1.8 Discharge Home Medications: Active Scripts Active Amox Tr-K Clv 875-125 mg Tab (Amoxicillin/Potassium Clav) 875 Mg-125 Mg Tablet 875 Mg PEG BID WITH MEALS Reported Guaifenesin 100 Mg/5 Ml Liquid 10 Ml PO Q8H PRN Cefdinir 300 Mg Capsule 300 Mg PO BID FILLED 02-15-2022 #12 DAY SUPPLY Acetylcysteine 200 Mg/Ml (20 %) Vial 200 Mg NEB BID Levofloxacin 500 Mg Tablet 500 Mg PO DAILY FILLED 02-11-2022 #02/20 DAY SUPPLY Milk of Magnesia (Magnesium Hydroxide) 400 Mg/5 Ml Oral.susp 30 Ml PO Q12H PRN Dulcolax (Bisacodyl) 10 Mg Supp.rect 10 Mg RC DAILY PRN Eliquis (Apixaban) 2.5 Mg Tablet 2.5 Mg PO Q12H Venlafaxine HCl ER (Venlafaxine HCl) 150 Mg Cap.er.24h 150 Mg PO DAILY Sotalol (Sotalol HCl) 80 Mg Tablet 80 Mg PO DAILY HOLD AND NOTIFY PCP FOR SBP <100 OR HR <50 Saline Nasal [place] (Sodium Chloride) 30 Ml [place] 2 Sprays NS Q1HR PRN Albuterol Sulfate 2.5 Mg/3 Ml Vial.neb 2.5 Mg INH Q6H PRN Mucinex (Guaifenesin) 600 Mg Tab.er.12h 600 Mg PO Q12H Dulera 100 Mcg/5 Mcg Inhaler (Mometasone/Formoterol) 13 Gm Hfa.aer.ad 2 Puff INH BID Melatonin 3 Mg Tablet 6 Mg PO HS TAKES 2 (3MG) TABS Neurontin (Gabapentin) 300 Mg Capsule 300 Mg PO DAILY Cod Liver Oil Softgel (Vit A & D3 in Cod Liver Oil) 1 Each Capsule 2 Each PO DAILY Tramadol HCl 50 Mg Tablet 50 Mg PO Q6H PRN Hydrocodone-Acetamin 5-325 mg (Hydrocodone/Acetaminophen) 1 Each Tablet 1 Ea PO Q4H PRN Senna (Sennosides) 8.6 Mg Tablet 8.6 Mg PO DAILY PRN Tylenol Extra Strength (Acetaminophen) 500 Mg Tablet 1,000 Mg PO Q8H PRN Miralax (Polyethylene Glycol 3350) 17 Gm Powd.pack 17 Gm PO DAILY PRN Docusate Sodium 100 Mg Capsule 100 Mg PO DAILY Aspirin EC (Aspirin) 81 Mg Tablet.dr 81 Mg PO Q12H Pantoprazole Sodium 40 Mg Tablet.dr 40 Mg PO DAILY Vitamin D3 (Cholecalciferol (Vitamin D3)) 125 Mcg Tablet 125 Mcg PO DAILY Instructions to patient/family Please see electronic discharge instructions given to patient. Problem Qualifiers (1) Pneumonia: Pneumonia type: aspiration pneumonia Aspiration pneumonia type: unspecified Laterality: bilateral Lung location: unspecified part of lung Qualified Codes: J69.0 - Pneumonitis due to inhalation of food and vomit RICARDO CLIFFORD MD Feb 24, 2022 10:50
--- NOTE | 2022-02-24 10:50 | Discharge Inst-Simple/Standard ---
Discharge Inst-Standard Discharge Medications New, Converted or Re-Newed RX: Transmitted to Pharmacy Patient Instructions/Follow Up Plan of Care/Instructions/FU: Please continue to take your medications as written through your PEG tube. Please follow up with your primary care doctor to follow up this hospital stay. Activity as Tolerated: Yes Discharge Diet: Tube Feeding (2 cans per meal of jevity 1.5 tube feeding given per gravity with 75 ml of water before and after feeding (total 6 cans per day)) Return to The Hospital For: Chest pain, shortness of breath, fever, weakness, if you feel you are getting worse. Other Inst to Patient Please continue to have speech therapy evaluate and treat patient for dysphagia. Give all meds through PEG and keep patient NPO. RICARDO CLIFFORD MD Feb 24, 2022 10:37
[2022-02-24 12:03] VITALS: BP 95/52
[2022-02-24 14:07] VITALS: BP 95/52
== END 2022-02-24 14:08 | DRG 871 ==
LOC: ER 16:53 → EDUNIT# 16:53 → ICU 18:40 → 4TH 02-18 13:41
PROVIDERS: ADMIT Family Medicine; ATTEND Internal Medicine
PROC: 0DB48ZX Excision of Esophagogastric Junction, Via Natural or Artificial Opening Endoscopic, Diagnostic (ICD-10-PCS; 2022-02-21)
PROC: 0DB78ZX Excision of Stomach, Pylorus, Via Natural or Artificial Opening Endoscopic, Diagnostic (ICD-10-PCS; 2022-02-21)
PROC: 0DH63UZ Insertion of Feeding Device into Stomach, Percutaneous Approach (ICD-10-PCS; principal; 2022-02-21 10:40)
DX: A41.9 Sepsis, unspecified organism (principal); J18.9 Pneumonia, unspecified organism; J69.0 Pneumonitis due to inhalation of food and vomit; J96.22 Acute and chronic respiratory failure with hypercapnia; J96.21 Acute and chronic respiratory failure with hypoxia; J44.0 Chronic obstructive pulmonary disease with (acute) lower respiratory infection; N17.9 Acute kidney failure, unspecified; E87.2 Acidosis; Z66 Do not resuscitate; Z20.822 Contact with and (suspected) exposure to COVID-19; R65.20 Severe sepsis without septic shock; I12.9 Hypertensive chronic kidney disease with stage 1 through stage 4 chronic kidney disease, or unspecified chronic kidney disease; N18.31 Chronic kidney disease, stage 3a; E86.0 Dehydration; D64.9 Anemia, unspecified; R13.10 Dysphagia, unspecified; K21.00 Gastro-esophageal reflux disease with esophagitis, without bleeding; K29.70 Gastritis, unspecified, without bleeding; I48.0 Paroxysmal atrial fibrillation; E78.00 Pure hypercholesterolemia, unspecified; F03.90 Unspecified dementia, unspecified severity, without behavioral disturbance, psychotic disturbance, mood disturbance, and anxiety; K21.9 Gastro-esophageal reflux disease without esophagitis; R26.81 Unsteadiness on feet; E03.9 Hypothyroidism, unspecified; Z99.81 Dependence on supplemental oxygen; Z79.01 Long term (current) use of anticoagulants
CPT/HCPCS: 36415; 71045; 74230; 80048; 80053; 81000; 82805; 83605; 83735; 83880; 84100; 84145; 84484; 85007; 85025; 85027; 85379; 85610; 85730; 86141; 87040; 87081; 87088; 87636; 93005; 94640; 94660; 94760; 96361; 96365; 96375; 99291

== ENCOUNTER 2022-03-30 09:54 | Inpatient (IN) | payer MEDICARE ==
[~2022-03-30] VITALS: Ht 187.9 cm; Wt 75.5 kg
[~2022-03-30 09:54] MED LIST changes: +ACET200V4 NEB; +AMOX1TAB12 PEG; +GUAI100L13 PO; +LEVO500T81 PO
--- NOTE | 2022-03-30 10:11 | ED Respiratory ---
General Chief Complaint: Respiratory Problems Stated Complaint: SOA Source: EMS Exam Limitations: clinical condition History of Present Illness Date Seen by Provider: Mar 30, 2022 Time Seen by Provider: 10:00 Initial Comments Patient is an 82-year-old male who is a DO NOT RESUSCITATE from a local correction with a chief complaint of worsening shortness of breath over the last couple of days. Per report of EMS as the patient arrives with CPAP, he has a history of COPD and congestive heart failure. He was found today at the correction to have saturations at 70% on 5 L per nasal cannula. They increased him to 10 and were able to get him into the 80s, EMS increased him to 15 and reported saturations in the low 90s. Patient states when asked if he is having any pain "I can't tell". He is apprehensive with the BiPAP. He has diffuse crackly wet breath sounds. Heart rate is in the 90s. He has no lower extremity edema. Abdomen is soft and nondistended. HPI, review of systems, past medical family and social history limited secondary to the patient's clinical condition. Timing/Duration: just prior to arrival Severity: severe Prior Episodes/Possible Cause: frequent episodes Associated Symptoms: shortness of breath Allergies and Home Medications Allergies Coded Allergies: No Known Drug Allergies (Unverified , 01/23/12) Patient Home Medication List Home Medication List Reviewed: Yes Acetaminophen (Tylenol Extra Strength) 500 Mg Tablet, 1,000 MG PO Q8H PRN for PAIN-MILD (1-4), (Reported) Entered as Reported by: SANTO HARRIS on 06/04/21 1036 Acetylcysteine (Acetylcysteine) 200 Mg/Ml (20 %) Vial, 200 MG NEB BID, (Reported) Entered as Reported by: SANTO HARRIS on 02/18/22 1401 Albuterol Sulfate (Albuterol Sulfate) 2.5 Mg/3 Ml Vial.neb, 2.5 MG INH Q6H PRN for SHORTNESS OF BREATH, (Reported) Entered as Reported by: JEFF TONY on 11/29/21 0230 Amoxicillin/Potassium Clav (Amox Tr-K Clv 875-125 mg Tab) 875 Mg-125 Mg Tablet, 875 MG PEG BID WITH MEALS Prescribed by: RICARDO SEGURA on 02/24/22 1034 Apixaban (Eliquis) 2.5 Mg Tablet, 2.5 MG PO Q12H, (Reported) Entered as Reported by: MI BONDS on 01/21/22 0934 Aspirin (Aspirin EC) 81 Mg Tablet.dr, 81 MG PO Q12H, (Reported) Entered as Reported by: SANTO HARRIS on 06/04/21 1036 Bisacodyl (Dulcolax) 10 Mg Supp.rect, 10 MG RC DAILY PRN for CONSTIPATION-4TH LINE, (Reported) Entered as Reported by: MI BONDS on 01/21/22 0934 Cholecalciferol (Vitamin D3) (Vitamin D3) 125 Mcg Tablet, 125 MCG PO DAILY, (Reported) Entered as Reported by: MI BONDS on 02/04/21 0849 Docusate Sodium (Docusate Sodium) 100 Mg Capsule, 100 MG PO DAILY, (Reported) Entered as Reported by: SANTO HARRIS on 06/04/21 103 Gabapentin (Neurontin) 300 Mg Capsule, 300 MG PO DAILY, (Reported) Entered as Reported by: SANTO HARRIS on 07/24/21 135 Guaifenesin (Mucinex) 600 Mg Tab.er.12h, 600 MG PO Q12H, (Reported) Entered as Reported by: SANTO HARRIS on 07/24/21 135 Guaifenesin (Guaifenesin) 100 Mg/5 Ml Liquid, 10 ML PO Q8H PRN for COUGH, (Reported) Entered as Reported by: SANTO HARRIS on 02/18/22 1401 Hydrocodone/Acetaminophen (Hydrocodone-Acetamin 5-325 mg) 1 Each Tablet, 1 EA PO Q4H PRN for PAIN-MODERATE (5-7), (Reported) Entered as Reported by: SANTO HARRIS on 07/24/21 1355 Magnesium Hydroxide (Milk of Magnesia) 400 Mg/5 Ml Oral.susp, 30 ML PO Q12H PRN for CONSTIPATION-7TH LINE, (Reported) Entered as Reported by: MI BONDS on 01/21/22 0934 Melatonin (Melatonin) 3 Mg Tablet, 6 MG PO HS, (Reported) Entered as Reported by: SANTO HARRIS on 07/24/21 1355 Mometasone/Formoterol (Dulera 100 Mcg/5 Mcg Inhaler) 13 Gm Hfa.aer.ad, 2 PUFF INH BID, (Reported) Entered as Reported by: SANTO HARRIS on 07/24/21 1355 Pantoprazole Sodium (Pantoprazole Sodium) 40 Mg Tablet.dr, 40 MG PO DAILY, (Reported) Entered as Reported by: SANTO HARRIS on 06/04/21 1036 Polyethylene Glycol 3350 (Miralax) 17 Gm Powd.pack, 17 GM PO DAILY PRN for CONSTIPATION-2ND LINE, (Reported) Entered as Reported by: SANTO HARRIS on 06/04/21 1036 Sennosides (Senna) 8.6 Mg Tablet, 8.6 MG PO DAILY PRN for CONSTIPATION-5TH LINE, (Reported) Entered as Reported by: SANTO HARRIS on 07/24/21 135 Sodium Chloride (Saline Nasal [place]) 30 Ml [place], 2 SPRAYS NS Q1HR PRN for CONGESTION, (Reported) Entered as Reported by: JEFF TONY on 11/29/21 0316 Sotalol HCl (Sotalol) 80 Mg Tablet, 80 MG PO DAILY, (Reported) Entered as Reported by: MI BONDS on 01/21/22 0934 Tramadol HCl (Tramadol HCl) 50 Mg Tablet, 50 MG PO Q6H PRN for PAIN-MODERATE (5- 7), (Reported) Entered as Reported by: SANTO HARRIS on 07/24/21 135 Venlafaxine HCl (Venlafaxine HCl ER) 150 Mg Cap.er.24h, 150 MG PO DAILY, (Reported) Entered as Reported by: MI BONDS on 01/21/22 0934 Vit A & D3 in Cod Liver Oil (Cod Liver Oil Softgel) 1 Each Capsule, 2 EACH PO DAILY, (Reported) Entered as Reported by: SANTO HARRIS on 07/24/21 1355 Review of Systems Review of Systems Constitutional: see HPI HPI, review of systems, past medical family and social history limited due to the patient's clinical condition Past [id number] Hx Immunizations Up To Date First/Initial COVID19 Vaccinat: 2019 Second COVID19 Vaccination Rufino: 2020 Third COVID19 Vaccination Date: 2021 Past Medical History Surgery/Hospitalization HX: EYE SURGERY, HERNIA REPAIR, left hip, COPD Surgeries: Yes (hernia; LOOP RECORDER) Abdominal, Cardiac, Eye Surgery, Joint Replacement, Orthopedic Respiratory: Yes (O2 DEPENDENT AT 2-3L/NC) Pneumonia, COPD Currently Using CPAP: No Currently Using BIPAP: No Cardiac: Yes (LOOP RECORDER) Atrial Fibrillation, High Cholesterol, Hypertension Neurological: Yes Dementia Reproductive Disorders: No Genitourinary: Yes (URETHRAL STRICTURE; RETENTION; SUPRAPUBIC CATHETER 05/2021) Renal Failure Gastrointestinal: Yes Abdominal Hernia, Gastroesophageal Reflux, Polyps Musculoskeletal: Yes (UNSTEADY GAIT; LEFT HIP FX/ORIF WITH REVISION) Arthritis, Fractures Endocrine: Yes Hypothyroidsim HEENT: No Cancer: No Psychosocial: No Integumentary: No Blood Disorders: Yes (ANEMIA) Family Medical History No Pertinent Family Hx LOOP RECORDER PLACED AND STRESS TEST 11/27/[address] RIVER 1. Patient tolerated Lexiscan well 2. No significant ischemia or infarction on SPECT images 3. Normal left ventricular size, EF 65% SUPRAPUBIC CATH AND CYSTOSCOPY 05/[address] GARRETT COLONOSCOPIES LEFT HIP FX/ORIF 01/[address] BERNAL WITH LATER REVISION Physical Exam Vital Signs - First Documented 03/30/22 09:59 Temp 36.7 Pulse 81 Resp 24 B/P (MAP) 141/86 (104) Pulse Ox 96 O2 Delivery NIV CPAP O2 Flow Rate 100.00 FiO2 100 Capillary Refill : Height: 6'2.00" Weight: 186lbs. oz. 81.857531fz; 21.36 BMI Method: General Appearance: other (Elderly-appearing male, no acute distress, thin, cachectic with dry flaky skin) Eyes: Bilateral Eye Normal Inspection, Bilateral Eye PERRL, Bilateral Eye EOMI Neck: normal inspection, other (No JVD no) Respiratory: no accessory muscle use, crackles (Wet crackly breath sounds throughout all lung isaac slightly labored breathing) Cardiovascular: regular rate, rhythm (90's), other (2+ radial pulse) Gastrointestinal: non tender, soft; No distended Extremities: normal range of motion, normal inspection, no pedal edema, normal capillary refill (2 to 3-second) Neurologic/Psychiatric: alert, oriented x 3 Skin: normal color, warm/dry, other (Dried cracked/flaky skin. Superficial wounds noted to the right elbow and small healing abrasions noted to the left shoulder; stage 1 uolcerations to skin of back and sacrum - nothing that appears cellulitic) Focused Exam Lactate Level 03/30/22 10:10: Lactic Acid Level 1.41 Lactic Acid Level Laboratory Tests Test 03/30/22 10:10 Lactic Acid Level 1.41 MMOL/L (0.50-2.00) Progress/Results/Core Measures Suspected Sepsis SIRS Temperature: Pulse: Respiratory Rate: Laboratory Tests 03/30/22 10:10: White Blood Count 23.4H Blood Pressure / Mean: 03/30/22 10:10: Lactic Acid Level 1.41 Laboratory Tests 03/30/22 10:10: Creatinine 1.07, INR Comment 1.0, Platelet Count 452H, Total Bilirubin 0.4 Results/Orders Lab Results Laboratory Tests Test 03/30/22 10:10 03/30/22 10:24 03/30/22 11:39 Range/Units White Blood Count 23.4 H 4.3-11.0 10^3/uL Red Blood Count 3.95 L 4.30-5.52 10^6/uL Hemoglobin 12.0 L 13.3-17.7 g/dL Hematocrit 36 L 40-54 % Mean Corpuscular Volume 92 80-99 fL Mean Corpuscular Hemoglobin 30 25-34 pg Mean Corpuscular Hemoglobin Concent 33 32-36 g/dL Red Cell Distribution Width 15.0 H 10.0-14.5 % Platelet Count 452 H 130-400 10^3/uL Mean Platelet Volume 8.8 L 9.0-12.2 fL Immature Granulocyte % (Auto) 3 % Neutrophils (%) (Auto) 80 H 42-75 % Lymphocytes (%) (Auto) 8 L 12-44 % Monocytes (%) (Auto) 9 0-12 % Eosinophils (%) (Auto) 0 0-10 % Basophils (%) (Auto) 0 0-10 % Neutrophils # (Auto) 18.6 H 1.8-7.8 10^3/uL Lymphocytes # (Auto) 1.8 1.0-4.0 10^3/uL Monocytes # (Auto) 2.1 H 0.0-1.0 10^3/uL Eosinophils # (Auto) 0.1 0.0-0.3 10^3/uL Basophils # (Auto) 0.1 0.0-0.1 10^3/uL Immature Granulocyte # (Auto) 0.8 H 0.0-0.1 10^3/uL Neutrophils % (Manual) 86 % Lymphocytes % (Manual) 8 % Monocytes % (Manual) 5 % Eosinophils % (Manual) 1 % Basophils % (Manual) 0 % Band Neutrophils 0 % Blood Morphology Comment NORMAL Prothrombin Time 13.6 12.2-14.7 SEC INR Comment 1.0 0.8-1.4 Activated Partial Thromboplast Time 34 24-35 SEC Sodium Level 126 L 135-145 MMOL/L Potassium Level 4.5 3.6-5.0 MMOL/L Chloride Level 81 L 98-107 MMOL/L Carbon Dioxide Level 33 H 21-32 MMOL/L Anion Gap 12 5-14 MMOL/L Blood Urea Nitrogen 29 H 7-18 MG/DL Creatinine 1.07 0.60-1.30 MG/DL Estimat Glomerular Filtration Rate 69 BUN/Creatinine Ratio 27 Glucose Level 95 70-105 MG/DL Lactic Acid Level 1.41 0.50-2.00 MMOL/L Calcium Level 10.0 8.5-10.1 MG/DL Corrected Calcium 10.2 H 8.5-10.1 MG/DL Total Bilirubin 0.4 0.1-1.0 MG/DL Aspartate Amino Transf (AST/SGOT) 24 5-34 U/L Alanine Aminotransferase (ALT/SGPT) 29 0-55 U/L Alkaline Phosphatase 115 40-136 U/L C-Reactive Protein High Sensitivity 2.26 H 0.00-0.50 MG/DL B-Type Natriuretic Peptide 52.5 <100.0 PG/ML Total Protein 8.6 H 6.4-8.2 GM/DL Albumin 3.8 3.2-4.5 GM/DL Procalcitonin 0.05 <0.10 NG/ML Influenza Type A (RT-PCR) Not Detected Not Detecte Influenza Type B (RT-PCR) Not Detected Not Detecte SARS-CoV-2 RNA (RT-PCR) Not Detected Not Detecte Bedside Blood Gas pH (LAB) 7.431 H 7.310-7.410 Bedside Blood Gas pCO2 (LAB) 55.3 H 41.0-51.0 mmHg Bedside Blood Gas pO2 (LAB) 73 L 80-105 mmHg Bedside Blood Gas HCO3 (LAB) 36.7 H 23.0-28.0 mmol/L POC Blood Gas Total CO2 Calc 38 H 24-29 mmol/L Bedside Bl Gas O2 Saturation (Calc) 94 L 95-98 % Bedside Arterial Blood Base Excess 12 H -2-3 mmol/L Urine Color YELLOW Urine Clarity CLEAR Urine pH 7.0 5-9 Urine Specific Martin 1.010 L 1.016-1.022 Urine Protein NEGATIVE NEGATIVE Urine Glucose (UA) NEGATIVE NEGATIVE Urine Ketones NEGATIVE NEGATIVE Urine Nitrite NEGATIVE NEGATIVE Urine Bilirubin NEGATIVE NEGATIVE Urine Urobilinogen 0.2 < = 1.0 MG/DL Urine Leukocyte Esterase 3+ H NEGATIVE Urine RBC (Auto) 3+ H NEGATIVE Urine RBC 25-50 H /HPF Urine WBC 25-50 H /HPF Urine Squamous Epithelial Cells NONE /HPF Urine Crystals NONE /LPF Urine Bacteria MODERATE H /HPF Urine Casts NONE /LPF Urine Mucus NEGATIVE /LPF Urine Culture Indicated CULTURE PENDING Micro Results Microbiology 03/30/22 Urine Culture - Preliminary, Resulted Pseudomonas aeruginosa 03/30/22 Blood Culture - Preliminary, Resulted No growth 03/30/22 Blood Culture - Preliminary, Resulted No growth My Orders Orders - DARYA CHAPMAN MD Cbc With Automated Diff (03/30/22 10:11) Comprehensive Metabolic Panel (03/30/22 10:11) Blood Culture (03/30/22 10:11) Urinalysis (03/30/22 10:11) Urine Culture (03/30/22 10:11) Protime With Inr (03/30/22 10:11) Partial Thromboplastin Time (03/30/22 10:11) Chest 1 View, Ap/Pa Only (03/30/22 10:11) Ed Iv/Invasive Line Start (03/30/22 10:11) Ed Iv/Invasive Line Start (03/30/22 10:11) Vital Signs Adult Sepsis Patie Q15M (03/30/22 10:11) O2 (03/30/22 10:11) Remove Rings In Anticipation O (03/30/22 10:11) Lactic Acid Analyzer (03/30/22 10:11) Bnp Jordin (03/30/22 10:11) Procalcitonin (Pct) (03/30/22 10:11) Hs C Reactive Protein (03/30/22 10:11) Ekg Tracing (03/30/22 10:11) Manual Differential (03/30/22 10:10) Covid 19 Inhouse Test (03/30/22 11:22) Influenza A And B By Pcr (03/30/22 11:22) Isolation Central Supply Req (03/30/22 11:22) Ns Iv 1000 Ml (Sodium Chloride 0.9%) (03/30/22 12:45) Morphine Injection (Morphine Injection (03/30/22 12:50) Albuterol Pre-Mix Nebs (Rt) (Proventil (03/30/22 13:45) Svn Small Volume Nebulizer (03/30/22 13:32) Ed Admission (Communication) (03/30/22 13:36) Vital Signs/I&O 03/30/22 03/30/22 03/30/22 09:59 09:59 09:59 Temp 36.7 Pulse 81 Resp 24 B/P (MAP) 141/86 (104) Pulse Ox 96 96 O2 Delivery NIV CPAP NIV CPAP NIV CPAP O2 Flow Rate 100.00 FiO2 100 Capillary Refill : Progress Note : Time: 12:33 Progress Note Discussed with family findings and plan of care. Since he was found to be in acute respiratory distress and hypoxic at the correction and is on BiPAP we will go ahead and keep him here in the hospital. Clinically she is much improved at this time. No increased work of breathing. He is able to answer questions. I turned his oxygen/FiO2 down from 100% to 70% just now. He is not tachycardic or hypotensive. He is not febrile. His lactic is not elevated. He does meet any criteria for sepsis. We went and looked at his skin around his suprapubic as well as his PEG tube and on his back. He does have grade 1 or so superficial wounds to the skin of his back and on his sacrum. Nothing that looks cellulitic. I have spoken with Dr. Segura, will admit him to the medical floor as he is a DNR/DNI. No antibiotics at this time and just gentle fluids for some likely volume contracture ECG Initial ECG Impression Date: Mar 30, 2022 Initial ECG Impression Time: 10:32 Initial ECG Rate: 82 Initial ECG Rhythm: Normal Sinus Initial ECG Intervals: Normal Initial ECG Impression: Normal Diagnostic Imaging Diagonstic Imaging: Xray Plain Films/CT/US/NM/MRI: chest Comments [facility] [place], [place] NAME: PAULINE OVALLE [facility] REC#: [id number] PT STATUS: REG ER : 1940 PHYSICIAN: DARYA CHAPMAN MD ADMIT DATE: 03/30/22/ER Draft Date of Exam:03/30/22 CHEST 1 VIEW, AP/PA ONLY EXAMINATION: Chest 1 view HISTORY: Short of breath COMPARISON: 02/17/2022 FINDINGS: There is improved aeration of the lungs with resolution of the previously seen edema. No pneumothorax. Heart size is normal. Loop recorder is present. IMPRESSION: 1. Improved aeration of the lungs with resolution of previously seen edema. Dictated on workstation # [id number] Dict: 03/30/22 1116 Trans: 03/30/22 1121 [facility] [id number] Interpreted by: MAME SOLIS MD Electronically signed by: Departure Communication (Admissions) Time/Spoke to Admitting Phy: 12:[address] Segura - accepts IP admission to 4th Impression Primary Impression: Acute and chronic respiratory failure with hypoxia Additional Impression: Volume depletion, unspecified Disposition: ADMITTED INPATIENT Condition: Stable Admissions Decision to Admit Reason: Admit from ER (General) Decision to Admit/Date: Mar 30, 2022 Time/Decision to Admit Time: 12:35 Departure-Patient Inst. Referrals: ERIK JOHN MD (PCP/Family) Primary Care Physician Copy Copies To 1: ERIK JOHN MD, KATHRYN M MD Mar 30, 2022 10:11
[2022-03-30 10:24] LABS: BASOPHILS # (AUTO) 0.1 10^3/uL (0.0-0.1); BASOPHILS % (AUTO) 0 % (0-10); EOSINOPHILS # (AUTO) 0.1 10^3/uL (0.0-0.3); EOSINOPHILS % (AUTO) 0 % (0-10); HEMATOCRIT 36 % (40-54); LYMPHOCYTES # (AUTO) 1.8 10^3/uL (1.0-4.0); LYMPHOCYTES % (AUTO) 8 % (12-44); MEAN CORPUSCULAR HEMOGLOBIN 30 pg (25-34); MEAN CORPUSCULAR HGB CONC 33 g/dL (32-36); MEAN CORPUSCULAR VOLUME 92 fL (80-99); MEAN PLATELET VOLUME 8.8 fL (9.0-12.2); MONOCYTES # (AUTO) 2.1 10^3/uL (0.0-1.0); MONOCYTES % (AUTO) 9 % (0-12); NEUTROPHILS # (AUTO) 18.6 10^3/uL (1.8-7.8); NEUTROPHILS % (AUTO) 80 % (42-75); PLATELET COUNT 452 10^3/uL (130-400); WHITE BLOOD COUNT 23.4 10^3/uL (4.3-11.0)
[2022-03-30 10:31] LABS: ALBUMIN 3.8 GM/DL (3.2-4.5); POTASSIUM 4.5 MMOL/L (3.6-5.0)
[2022-03-30 10:34] LABS: PROTHROMBIN TIME PATIENT 13.6 SEC (12.2-14.7); TOTAL PROTEIN 8.6 GM/DL (6.4-8.2)
[2022-03-30 10:35] LABS: BILIRUBIN,TOTAL 0.4 MG/DL (0.1-1.0)
[2022-03-30 10:37] LABS: CREATININE SERUM 1.07 MG/DL (0.60-1.30)
[2022-03-30 10:46] LABS: BAND NEUTROPHILS 0 %; BASOPHILS % (MANUAL) 0 %; EOSINOPHILS % (MANUAL) 1 %; LYMPHOCYTES % (MANUAL) 8 %; MONOCYTES % (MANUAL) 5 %; NEUTROPHILS % (MANUAL) 86 %; RBC MORPH NORMAL
--- NOTE | 2022-03-30 11:21 | Diagnostic Imaging Report ---
EXAMINATION: Chest 1 view HISTORY: Short of breath COMPARISON: 02/17/2022 FINDINGS: There is improved aeration of the lungs with resolution of the previously seen edema. No pneumothorax. Heart size is normal. Loop recorder is present. IMPRESSION: 1. Improved aeration of the lungs with resolution of previously seen edema. Dictated by: Dictated on workstation # [id number]
[2022-03-30 11:46] LABS: BILIRUBIN,URINE NEGATIVE (NEGATIVE); CLARITY,URINE CLEAR; COLOR,URINE YELLOW; GLUCOSE, URINE (UA) NEGATIVE (NEGATIVE); KETONES,URINE NEGATIVE (NEGATIVE); LEUKOCYTE ESTERASE ,URINE 3+ (NEGATIVE); NITRITE,URINE NEGATIVE (NEGATIVE); PROTEIN,URINE NEGATIVE (NEGATIVE)
[2022-03-30 11:52] LABS: BACTERIA,URINE MODERATE /HPF; RBC,URINE 25-50 /HPF; WBC,URINE 25-50 /HPF
[2022-03-30] MEDS ORDERED: NS IV 1000 ML 1,000 ML IV SCH ×2 (12:45→16:00)
[2022-03-30] MEDS ORDERED: morphine INJ 10 MG/ML 1ML (SYR OR VIAL) IVP STA (12:50)
[2022-03-30] MEDS ORDERED: RT-ALBUTEROL SULF 2.5 MG/3 ML PRE-MIX VIAL INH ONE (13:45)
--- NOTE | 2022-03-30 13:53 | History & Physical-Hospitalist ---
History of Present Illness HPI/Chief Complaint Pt is an 81 year old male with PMH AFib, COPD, suprapubic catheter, recurrent hospitalizations due to pneumonia who presented to the ER via EMS due to shortness of breath. He is limited in his ability to provide history due to morphine and BiPAP use. Son is at bedside and reports symptoms started last night but worsened this morning. Had increasing shortness of breath and cough. ER reports patient nearly obtunded on arrival but improved with BiPAP. Attempted to wean NIPPV in the ER but he did not tolerate and does not like mask so morphine given. No fevers per son. Source: family Date Seen 03/30/22 Attending Physician Erik Nichols MD PCP Admitting Physician: Attending Physician: Referring Physician Date of Admission Home Medications & Allergies Home Medications Reviewed patient Home Medication Reconciliation performed by pharmacy medication reconciliations medical instrument technician and/or nursing. Patients Allergies have been reviewed. Allergies Allergies Coded Allergies No Known Drug Allergies (Unverified01/23/12) Past Fhccyyr-Jpkwow-Bmvegp Hx Patient Social History Tobacco Use?: No Use of E-Cig and/or Vaping dev: No Substance use?: No Alcohol Use?: No Pt feels they are or have been: No Immunizations Up To Date First/Initial COVID19 Vaccinat: 2020 Second COVID19 Vaccination Rufino: 2020 Tetanus Booster (TDap): Unknown Hepatitis A: No Hepatitis B: No Current Status Advance Directives: Yes Advance Directive Location: per intermediate Communicates: Verbally Primary Language: Surinamese Preferred Spoken Language: Surinamese Past Medical History Surgeries: Abdominal, Cardiac, Eye Surgery, Joint Replacement, Orthopedic Pneumonia, COPD Currently Using CPAP: No Currently Using BIPAP: No Atrial Fibrillation, High Cholesterol, Hypertension Dementia Renal Failure Abdominal Hernia, Gastroesophageal Reflux, Polyps Arthritis, Fractures Hypothyroidsim Blood Disorders: Yes (ANEMIA) Family Medical History No Pertinent Family Hx LOOP RECORDER PLACED AND STRESS TEST 11/27/[address] RIVER 1. Patient tolerated Lexiscan well 2. No significant ischemia or infarction on SPECT images 3. Normal left ventricular size, EF 65% SUPRAPUBIC CATH AND CYSTOSCOPY 05/[address] GARRETT COLONOSCOPIES LEFT HIP FX/ORIF 01/[address] BERNAL WITH LATER REVISION Review of Systems ROS-Unable to Obtain: clinical condition Constitutional: see HPI Physical Exam Physical Exam Vital Signs Vital Signs - First Documented 03/30/22 09:59 Temp 36.7 Pulse 81 Resp 24 B/P (MAP) 141/86 (104) Pulse Ox 96 O2 Delivery NIV CPAP O2 Flow Rate 100.00 FiO2 100 Capillary Refill : Height, Weight, BMI Height: 6'2.00" Weight: 186lbs. oz. 81.449411ws; 21.00 BMI Method: General Appearance: Chronically ill, Mild Distress, Thin HEENT: PERRL/EOMI, Other (dry mucus membranes, exam obscured by BIPAP mask) Neck: Normal Inspection, Supple Respiratory: No Accessory Muscle Use, Crackles (left base), Other (on BiPAP) Cardiovascular: Regular Rate, Rhythm, No JVD, No Murmur Gastrointestinal: Normal Bowel Sounds, Non Tender, Soft Extremity: Normal Capillary Refill, No Calf Tenderness, No Pedal Edema Neurologic/Psychiatric: Alert, Oriented x3 (though sleepy from morphine) Skin: Normal Color, Warm/Dry Results Results/Procedures Labs Laboratory Tests 03/30/22 10:10 Patient resulted labs reviewed. Imaging: Reviewed Imaging Report [facility] [place] NAME: PAULINE OVALLE [facility] REC#: [id number] PT STATUS: REG ER : 1940 PHYSICIAN: DARYA CHAPMAN MD ADMIT DATE: 03/30/22/ER Signed Date of Exam:03/30/22 CHEST 1 VIEW, AP/PA ONLY EXAMINATION: Chest 1 view HISTORY: Short of breath COMPARISON: 02/17/2022 FINDINGS: There is improved aeration of the lungs with resolution of the previously seen edema. No pneumothorax. Heart size is normal. Loop recorder is present. IMPRESSION: 1. Improved aeration of the lungs with resolution of previously seen edema. Dictated by: Dictated on workstation # [id number] Dict: 03/30/22 1116 Trans: 03/30/[address] [facility] [id number] Interpreted by: MAME SOLIS MD Electronically signed by: MAME SOLIS MD 03/30/22 1232 Assessment/Plan Admission Diagnosis Acute on chronic respiratory failure Admission Status: Inpatient Order (span 2 midnights) Reason for Inpatient Admission: see below Assessment and Plan Acute on chronic respiratory failure Severe Sepsis due to Pneumonia COPD Cefepime Currently on CPAP Pulm consult Continue home inhalers MAT protocol Tolerated morphine well Palliative care consult, appreciate recs Dementia A fib No acute needs Continue home meds as able DVT ppx: Eliquis Diagnosis/Problems Diagnosis/Problems (1) Paroxysmal atrial fibrillation Status: Chronic (2) Acute respiratory failure with hypoxia Status: Acute (3) COPD (chronic obstructive pulmonary disease) Status: Chronic Qualifiers: COPD type: COPD with acute lower respiratory infection Qualified Codes: J44.0 - Chronic obstructive pulmonary disease with (acute) lower respiratory infection (4) CKD (chronic kidney disease) Status: Chronic Qualifiers: Chronic kidney disease stage: stage 2 (mild) Qualified Codes: N18.2 - Chronic kidney disease, stage 2 (mild) (5) Failure to thrive Status: Chronic Qualifiers: Failure to thrive age range: in adult Qualified Codes: R62.7 - Adult failure to thrive (6) Suprapubic catheter Status: Chronic (7) Dementia Status: Chronic Qualifiers: Dementia type: unspecified type (8) Acute on chronic respiratory failure with hypoxia and hypercapnia Status: Acute (9) Pneumonia Qualifiers: Pneumonia type: due to unspecified organism Laterality: left Lung location: lower lobe of lung Qualified Codes: J18.9 - Pneumonia, unspecified organism (10) Sepsis Status: Acute Qualifiers: Sepsis type: sepsis due to unspecified organism Sepsis acute organ dysfunction status: without acute organ dysfunction Qualified Codes: A41.9 - Sepsis, unspecified organism Copy Copies To 1: ERIK NICHOLS MD, KATELYN M MD Mar 30, 2022 13:53
[2022-03-30] MEDS ORDERED: LORazepam ORAL CONCENTRATE 2 MG/ML 30 ML (ATIVAN) PO STA (14:30)
[2022-03-30 16:00] VITALS: BP 97/77
[2022-03-30] MEDS ORDERED: morphine INJ 4 MG/ML 1 ML (VIAL/SYRINGE) IVP PRN (16:00)
[2022-03-30] MEDS ORDERED: MELATONIN 3 MG TABLET PO PRN (16:00)
[2022-03-30] MEDS ORDERED: morphine INJ 10 MG/ML 1ML (SYR OR VIAL) IVP PRN (16:00)
[2022-03-30] MEDS ORDERED: ACETAMINOPHEN 500 MG TAB (TYLENOL) PO PRN (16:00)
[2022-03-30] MEDS ORDERED: MILK OF MAGNESIA 400 MG/5 ML 30 ML UDC PO PRN (16:00)
[2022-03-30] MEDS ORDERED: ANTACID SUSP 30 ML UDC (MYLANTA) PO PRN (16:00)
[2022-03-30] MEDS ORDERED: ONDANSETRON 4 MG/2 ML (SDV) Z0FRAN IV PRN (16:00)
[2022-03-30 16:02] VITALS: BP 93/54
[2022-03-30] MEDS ORDERED: LORazepam ORAL CONCENTRATE 2 MG/ML 30 ML (ATIVAN) PO PRN (16:30)
[2022-03-30] MEDS ORDERED: RT-ALBUTEROL/IPRATROPIUM 3 ML (DUONEB) VIAL INH PRN ×2 (16:30→17:15)
[2022-03-30 17:15] VITALS: BP 63/40
[2022-03-30] MEDS ORDERED: ARTIFICAL TEARS 0.4 ML UNIT DOSE (REFRESH PLUS) OU PRN (17:15)
[2022-03-30] MEDS ORDERED: ACETAMINOPHEN 650 MG SUPP (TYLENOL) PR PRN (17:15)
[2022-03-30] MEDS ORDERED: ONDANSETRON 4 MG/2 ML (SDV) Z0FRAN IVP PRN (17:15)
[2022-03-30] MEDS ORDERED: SALIVA STIMULANT MOUTH SPRAY (BIOTENE) 1.5 OZ MM PRN (17:15)
[2022-03-30] MEDS ORDERED: LORazepam 1 MG (ATIVAN) TAB SL PRN (17:15)
[2022-03-30] MEDS ORDERED: BISACODYL 10 MG SUPP (DULCOLAX) PR PRN (17:15)
[2022-03-30] MEDS ORDERED: PROMETHAZINE INJ 25 MG/ML (PHENERGAN) AMP IVP PRN (17:15)
[2022-03-30] MEDS: morphine INJ 4 MG/ML 1 ML (VIAL/SYRINGE) IVP PRN ×2 (17:34→18:35)
[2022-03-30] MEDS ORDERED: morphine INJ 4 MG/ML 1 ML (VIAL/SYRINGE) ONE (18:29)
[2022-03-30] MEDS: RT-ALBUTEROL/IPRATROPIUM 3 ML (DUONEB) VIAL INH SCH ×2 (18:49→22:00)
[2022-03-30] MEDS ORDERED: APIXABAN 2.5 MG (ELIQUIS) TABLET PO SCH (21:00)
[2022-03-30] MEDS ORDERED: CEFEPIME INJECTION 2,000 MG in NS (IVPB) 50 ML IV SCH (21:00)
[2022-03-30] MEDS: LORazepam ORAL CONCENTRATE 2 MG/ML 30 ML (ATIVAN) PO PRN (23:39)
[2022-03-31] MEDS: RT-ALBUTEROL/IPRATROPIUM 3 ML (DUONEB) VIAL INH SCH (02:53)
[2022-03-31] MEDS: morphine INJ 4 MG/ML 1 ML (VIAL/SYRINGE) IVP PRN ×2 (10:06→17:36)
[2022-03-31] MEDS: LORazepam ORAL CONCENTRATE 2 MG/ML 30 ML (ATIVAN) PO PRN (10:07)
[2022-03-31] MEDS: GLYCOPYRROLATE 0.2 MG/ML (ROBINUL) 2 ML VIAL IV PRN (14:09)
--- NOTE | 2022-03-31 15:26 | Progress Note - Hospitalist ---
Subjective HPI/CC On Admission Date Seen by Provider: Mar 31, 2022 Time Seen by Provider: 10:50 Pt is an 81 year old male with PMH AFib, COPD, suprapubic catheter, recurrent hospitalizations due to pneumonia who presented to the ER via EMS due to shortness of breath. He is limited in his ability to provide history due to morphine and BiPAP use. Son is at bedside and reports symptoms started last night but worsened this morning. Had increasing shortness of breath and cough. ER reports patient nearly obtunded on arrival but improved with BiPAP. Attempted to wean NIPPV in the ER but he did not tolerate and does not like mask so morphine given. No fevers per son. Subjective/Events-last exam He is awake. He moans but does not respond verbally. He does not open his eyes. There is no family at the bedside at this time. Focused Exam Lactate Level 03/30/22 10:10: Lactic Acid Level 1.41 Objective Exam Vital Signs Vital Signs Date Time Temp Pulse Resp B/P (MAP) Pulse Ox O2 Delivery O2 Flow Rate FiO2 03/31/22 08:00 Nasal Cannula 2.00 03/30/22 17:15 134 63/40 (48) 84 03/30/22 16:42 100 03/30/22 16:02 36.7 03/30/22 16:00 24 Capillary Refill : General Appearance: No Apparent Distress, Chronically ill Respiratory: No Respiratory Distress, Decreased Breath Sounds Cardiovascular: Regular Rate, Rhythm, No Murmur Gastrointestinal: Normal Bowel Sounds, Soft Extremity: Normal Inspection, No Pedal Edema Neurologic/Psychiatric: Other (lethargic, minimally responsive) Skin: Normal Color, Warm/Dry Results/Procedures Lab Patient resulted labs reviewed. Imaging: Reviewed Imaging Report Assessment/Plan Assessment and Plan Assess & Plan/Chief Complaint Acute on chronic respiratory failure Severe Sepsis due to Pneumonia COPD Dementia A fib Comfort measures only status Family elected to pursue comfort measures Comfort care orders placed Palliative care consulted Diagnosis/Problems Diagnosis/Problems (1) Comfort measures only status Status: Acute (2) Acute and chronic respiratory failure with hypoxia Status: Acute (3) PNA (pneumonia) Status: Acute (4) Severe sepsis Status: Acute (5) COPD (chronic obstructive pulmonary disease) Status: Chronic Qualifiers: COPD type: COPD with acute lower respiratory infection Qualified Codes: J44.0 - Chronic obstructive pulmonary disease with (acute) lower respiratory infection (6) A-fib Status: Chronic (7) Dementia Status: Chronic Qualifiers: Dementia type: unspecified type (8) Poor prognosis Status: Acute NIKO BROWN MD Mar 31, 2022 15:26
[2022-04-01] MEDS: GLYCOPYRROLATE 0.2 MG/ML (ROBINUL) 2 ML VIAL IV PRN (00:19)
[2022-04-01] MEDS: morphine INJ 4 MG/ML 1 ML (VIAL/SYRINGE) IVP PRN ×3 (00:20→13:37)
[2022-04-01] MEDS: LORazepam ORAL CONCENTRATE 2 MG/ML 30 ML (ATIVAN) PO PRN ×2 (00:46→01:51)
[2022-04-01] MEDS ORDERED: MORP100S7 PO (11:28)
[2022-04-01] MEDS ORDERED: LORA2ORA PO (11:28)
--- NOTE | 2022-04-01 21:04 | Discharge Summary ---
Discharge Summary Hospital Course Problems/Dx: (1) Comfort measures only status Status: Acute (2) Acute and chronic respiratory failure with hypoxia Status: Acute (3) PNA (pneumonia) Status: Acute (4) Severe sepsis Status: Acute (5) COPD (chronic obstructive pulmonary disease) Status: Chronic Qualifiers: Qualified Codes: J44.0 - Chronic obstructive pulmonary disease with (acute) lower respiratory infection (6) A-fib Status: Chronic (7) Dementia Status: Chronic Qualifiers: (8) Poor prognosis Status: Acute Hospital Course Date of Admission: Mar 30, 2022 at 15:48 Admission Diagnosis : Severe sepsis due to pneumonia, acute on chronic respiratory failure with hypoxia Family Physician/Provider: Erik John MD Date of Discharge: 04/01/22 Discharge Diagnosis: Severe sepsis due to pneumonia, acute on chronic respiratory failure with hypoxia Hospital Course: [facility] Pham is an 82 year old male with PMH COPD, AFib, dementia, dysphagia with PEG dependence, who was admitted with acute on chronic respiratory failure and severe sepsis due to pneumonia. He has been hospitalized several times over recent months for recurrent aspiration pneumonias. He recently had a PEG tube placed due to dysphagia. He was initially requiring BiPAP on arrival. His family subsequently elected to pursue comfort measures only. Palliative care was consulted. He was discharged to [facility]. He was provided comfort medications on discharge. Labs and Pending Lab Test: Microbiology 03/30/22 Urine Culture - Preliminary, Resulted Pseudomonas aeruginosa 03/30/22 Blood Culture - Preliminary, Resulted No growth Home Meds Active Lorazepam Intensol (Lorazepam) 2 Mg/Ml Oral.conc 2 Mg PO Q2H PRN Morphine Conc. 20mg/ml (Morphine Sulfate) 100 Mg/5 Ml (20 Mg/Ml) Solution 10 Mg PO Q2H PRN 7 Days Assessment/Pt Instructions Patient discharged to [facility] Discharge Planning: >30 minutes discharge planning Discharge Instructions Discharge Diet: No Restrictions Activity as Tolerated: Yes Discharge Physical Examination Vital Signs Vital Signs Date Time Temp Pulse Resp B/P (MAP) Pulse Ox O2 Delivery O2 Flow Rate FiO2 04/01/22 08:00 Nasal Cannula 2.00 03/30/22 17:15 134 63/40 (48) 84 03/30/22 16:42 100 03/30/22 16:02 36.7 03/30/22 16:00 24 Allergies: Coded Allergies: No Known Drug Allergies (Unverified , 01/23/12) Copy Copies To 1: ERIK JOHN MD Discharge Summary Date of Admission Mar 30, 2022 at 15:48 Date of Discharge Apr 01, 2022 at 14:10 Discharge Date: Apr 01, 2022 Discharge Time: 14:10 Admission Diagnosis Acute on chronic respiratory failure Comfort Measures/ End of Life Care: Comfort Measures Discharge Diagnosis Acute on chronic respiratory failure Severe Sepsis due to Pneumonia COPD Dementia A fib Comfort measures only status (1) Comfort measures only status Status: Acute (2) Acute and chronic respiratory failure with hypoxia Status: Acute (3) PNA (pneumonia) Status: Acute (4) Severe sepsis Status: Acute (5) COPD (chronic obstructive pulmonary disease) Status: Chronic Qualifiers: Qualified Codes: J44.0 - Chronic obstructive pulmonary disease with (acute) lower respiratory infection (6) A-fib Status: Chronic (7) Dementia Status: Chronic Qualifiers: (8) Poor prognosis Status: Acute NIKO BROWN MD Apr 01, 2022 21:01
== END 2022-04-01 14:10 | disposition hospice, inpatient (51) | DRG 871 ==
LOC: EDUNIT# 09:54 → ER 09:55 → CSD 13:36 → OBSVTOIN 15:48 → 4TH 19:50
PROVIDERS: ADMIT Family Medicine; ATTEND Internal Medicine
PROC: 5A09357 Assistance with Respiratory Ventilation, Less than 24 Consecutive Hours, Continuous Positive Airway Pressure (ICD-10-PCS; principal; 2022-03-30)
DX: A41.9 Sepsis, unspecified organism (principal); J18.9 Pneumonia, unspecified organism; J96.21 Acute and chronic respiratory failure with hypoxia; J44.0 Chronic obstructive pulmonary disease with (acute) lower respiratory infection; I48.20 Chronic atrial fibrillation, unspecified; I13.0 Hypertensive heart and chronic kidney disease with heart failure and stage 1 through stage 4 chronic kidney disease, or unspecified chronic kidney disease; R65.20 Severe sepsis without septic shock; Z51.5 Encounter for palliative care; F03.90 Unspecified dementia, unspecified severity, without behavioral disturbance, psychotic disturbance, mood disturbance, and anxiety; Z93.1 Gastrostomy status; R13.10 Dysphagia, unspecified; E78.00 Pure hypercholesterolemia, unspecified; K21.9 Gastro-esophageal reflux disease without esophagitis; M19.90 Unspecified osteoarthritis, unspecified site; E03.9 Hypothyroidism, unspecified; R62.7 Adult failure to thrive; N18.9 Chronic kidney disease, unspecified; Z66 Do not resuscitate; I50.9 Heart failure, unspecified; Z79.82 Long term (current) use of aspirin; Z79.899 Other long term (current) drug therapy; Z20.822 Contact with and (suspected) exposure to COVID-19; Z68.21 Body mass index [BMI] 21.0-21.9, adult
CPT/HCPCS: 36415; 71045; 80053; 81000; 82805; 83605; 83880; 84145; 85007; 85027; 85610; 85730; 86141; 87040; 87077; 87088; 87186; 87636; 93005; 94640; 94760; 94799